=== PATIENT | male | born 1955 | race Hispanic/Latino ===

== ENCOUNTER 2021-12-09 07:15 | Emergency (ER) | payer MEDICARE ==
[2021-12-09] MEDS ORDERED: DEXTROSE 50% IN WATER (25GM) 50 ML SYRINGE IV ONE (08:08)
--- NOTE | 2021-12-09 08:27 | Emergency Department Report ---
ED Dizziness HPI - General Chief Complaint: Hypoglycemia Stated Complaint: HYPGLYCEMIA Time Seen by Provider: 12/09/21 08:03 Source: EMS Mode of arrival: Stretcher Limitations: Physical Limitation - History of Present Illness Initial Comments: 66yo M w/multiple medical comorbidities, brought in by EMS from SNF for hypoglycemia. Per RNs' report, FSG value obtained from EMS is unclear. At bedside today, pt's FSG in the ER is 53mg/dL. Pt denies any complaints at this time. Pain 0/10. Timing: unsure History of Same: No (pt denies) History of Trauma: No Severity: Unable to Determine Improves With: nothing Worsens With: nothing Associated Symptoms: denies other symptoms, other (pt denies) - Related Data Previous Rx's Medication Instructions Recorded Last Taken Type cephALEXin [Keflex] 500 mg PO Q6HR 7 Days #28 capsule 12/09/21 Unknown Rx Allergies Allergy/AdvReac Type Severity Reaction Status Date / Time No Known Allergies Allergy Verified 12/09/21 12:16 ED Review of Systems ROS: Stated complaint: HYPGLYCEMIA Other details as noted in HPI Comment: All other systems reviewed and negative Constitutional: no symptoms reported Eyes: denies: eye pain, eye discharge, vision change ENT: denies: ear pain, throat pain, dental pain, hearing loss, epistaxis Respiratory: denies: see HPI, cough, orthopnea, shortness of breath, SOB with exertion, SOB at rest, stridor Cardiovascular: denies: chest pain, palpitations, dyspnea on exertion, edema, syncope, paroxysmal nocturnal dyspnea Endocrine: no symptoms reported. denies: excessive sweating, flushing, increased hunger, increased thirst, increased urine, unexplained weight gain Gastrointestinal: denies: abdominal pain, nausea, vomiting, diarrhea, constipation, hematemesis, melena Genitourinary: denies: urgency, dysuria, frequency, hematuria, discharge, testicular pain, testicular mass Skin: denies: rash, lesions, change in color, change in hair/nails, pruritus Neurological: weakness, other (pt is bedbound secondary to CVA; denies new/evolving cva symptoms). denies: headache, numbness, paresthesias, confusion, abnormal gait, vertigo Psychiatric: denies: anxiety, depression, auditory hallucinations, visual hallucinations, homicidal thoughts, suicidal thoughts Hematological/Lymphatic: denies: easy bleeding, easy bruising, swollen glands ED Past Medical Hx - Past Medical History Hx CVA: Yes (pt is chronically bed-bound) Hx Diabetes: Yes - Family History Family history: no significant - Social History Smoking Status: Former Smoker Substance Use Type: None Other Social History: pt is from SNF - Medications Home Medications: Home Medications Medication Instructions Recorded Confirmed Last Taken Type cephALEXin [Keflex] 500 mg PO Q6HR 7 Days #28 capsule 12/09/21 Unknown Rx ED Physical Exam - General Limitations: Physical Limitation General appearance: alert, in no apparent distress - Head Head exam: Present: atraumatic, normocephalic - Eye Eye exam: Present: normal appearance, PERRL, EOMI Pupils: Present: normal accommodation - ENT ENT exam: Present: normal exam, normal orophraynx, mucous membranes moist - Neck Neck exam: Present: normal inspection, full ROM. Absent: tenderness, lymphadenopathy, thyromegaly - Respiratory Respiratory exam: Present: normal lung sounds bilaterally. Absent: respiratory distress, wheezes, rales, rhonchi, stridor, chest wall tenderness, accessory muscle use, decreased breath sounds - Cardiovascular Cardiovascular Exam: Present: regular rate, normal rhythm, normal heart sounds. Absent: bradycardia, tachycardia, irregular rhythm, systolic murmur, diastolic murmur, rubs, gallop, clicks, JVD, S3, S4, other - GI/Abdominal GI/Abdominal exam: Present: soft, diminished bowel sounds, other (+G tube in place;no drainage, no erythema, no ttp; insertion site is well appearing). Absent: distended, tenderness, guarding, rebound, rigid, normal bowel sounds, hyperactive bowel sounds, hypoactive bowel sounds, organomegaly, mass, bruit, pulsatile mass, hernia - External exam: Absent: erythema, swelling, lesions, lacerations, ecchymosis - Extremities Exam Extremities exam: Absent: tenderness, normal capillary refill, pedal edema, joint swelling, calf tenderness - Back Exam Back exam: Present: normal inspection, full ROM. Absent: tenderness, CVA tenderness (R), CVA tenderness (L), muscle spasm, paraspinal tenderness, vertebr al tenderness - Neurological Exam Neurological exam: Present: alert, other (pt is bedbound secondary to prior cva) - Psychiatric Psychiatric exam: Present: normal affect, normal mood. Absent: depressed, agitated, anxious, flat affect, manic, homicidal ideation - Skin Skin exam: Present: warm, dry, intact, normal color. Absent: rash, cyanosis, diaphoretic, erythema, urticaria, vesicles, petechiae, pallor, abrasion, ecchymosis, other ED Course Vital Signs 12/09/21 12/09/21 12/09/21 07:29 08:12 08:15 Temperature 98.5 F Pulse Rate 95 H 68 72 Respiratory 18 11 L 14 Rate Blood Pressure 107/52 Blood Pressure 148/92 [Left] O2 Sat by Pulse 96 Oximetry 12/09/21 12/09/21 12/09/21 08:31 08:45 09:01 Temperature Pulse Rate 67 63 62 Respiratory 14 17 18 Rate Blood Pressure 107/52 107/52 90/55 Blood Pressure [Left] O2 Sat by Pulse Oximetry 12/09/21 12/09/21 12/09/21 09:15 09:31 09:45 Temperature Pulse Rate 62 61 61 Respiratory 18 18 16 Rate Blood Pressure 90/55 90/55 90/55 Blood Pressure [Left] O2 Sat by Pulse Oximetry 12/09/21 12/09/21 12/09/21 10:01 10:15 10:31 Temperature Pulse Rate 64 62 62 Respiratory 16 17 15 Rate Blood Pressure 100/58 100/58 100/58 Blood Pressure [Left] O2 Sat by Pulse Oximetry 12/09/21 12/09/21 12/09/21 10:45 11:01 11:16 Temperature Pulse Rate 64 65 68 Respiratory 17 17 12 Rate Blood Pressure 100/58 100/58 Blood Pressure [Left] O2 Sat by Pulse Oximetry 12/09/21 12/09/21 12/09/21 11:31 11:45 12:01 Temperature Pulse Rate 69 71 75 Respiratory 10 L 16 17 Rate Blood Pressure 100/58 100/58 100/58 Blood Pressure [Left] O2 Sat by Pulse 99 98 98 Oximetry 12/09/21 12/09/21 12/09/21 12:15 12:31 12:45 Temperature Pulse Rate 86 74 74 Respiratory 16 16 10 L Rate Blood Pressure 113/66 113/66 113/66 Blood Pressure [Left] O2 Sat by Pulse 99 98 99 Oximetry 12/09/21 12/09/21 13:01 13:15 Temperature Pulse Rate 73 72 Respiratory 18 20 Rate Blood Pressure 113/66 113/66 Blood Pressure [Left] O2 Sat by Pulse 97 98 Oximetry - Reevaluation(s) Reevaluation #1: 12/09/21 12:41 pt calm, cooperative; denies any complaints; nad ED Medical Decision Making - Lab Data Result diagrams: 12/09/21 08:19 12/09/21 08:19 - Radiology Data Radiology results: report reviewed - Medical Decision Making 66-year-old male, sent from [facility], documented history per paperwork that was faxed to the emergency department from this facility, type 2 diabetes, bacteremia, ischemic cardiomyopathy, systolic congestive heart failure, muscle weakness, dysphagia, hyperlipidemia, depression, hypertension, chronic kidney disease stage III, gastrostomy tube, sent in for evaluation of hypoglycemia. Per paperwork that was subsequently faxed to the emergency department from the patient's facility, patient was found to have a glucose of 28 mg/dL this morning. Time was not documented. The patient was subsequently given orange juice. Patient was also documented as having been given glucagon. Patient was "clammy but responsive" per [facility] documentation Serum labs reviewed. Electrolyte abnormalities adjusted and supplementation provided. Finger sticks for glucose checks done serially here in the remained s table. Patient was given Ensure shake x2 via his G-tube. Urinalysis positive for UTI. Patient given Rocephin 1 g IV. Patient stable for discharge back to [facility] facility. Critical care attestation.: If time is entered above; I have spent that time in minutes in the direct care of this critically ill patient, excluding procedure time. ED Disposition Clinical Impression: Hypoglycemia, UTI (urinary tract infection), Hypokalemia Disposition: 03 [facility] Is pt being admited?: No Does the pt Need Aspirin: No Condition: Stable Instructions: Hypokalemia, Urinary Tract Infection, Adult Additional Instructions: It is strongly advised that you follow-up with your primary care doctor in 1-2 business days for reassessment. You have a urinary tract infection. Please take the prescribed antibiotics for this until your antibiotics have been fully completed. Your potassium level today is slightly low at 3.1 and normal is 3.5- 5.0. Eat foods rich in potassium and please have this level rechecked by your primary care doctor during your follow-up visit. Your CAT scan also shows that you have multiple nodules in your right lung. The reading radiologist recommends you have a CAT scan done again in 3 to 6 months to reassess these areas. Please discuss this with your doctor and have your primary care doctor order your repeat CAT scans as recommended Return to the nearest emergency department soon as possible if you develop dizziness, vomiting, weakness, persistently low sugars that are not improving with sugar and/or food, or if any other new worrisome symptoms develop. Prescriptions: cephALEXin [Keflex] 500 mg PO Q6HR 7 Days #28 capsule Referrals: PRIMARY CARE, [Primary Care Provider] - 3-5 Days
--- NOTE | 2021-12-09 08:41 | XRay Report ---
CHEST 1 VIEW 12/09/2021 8:21 AM INDICATION / CLINICAL INFORMATION: weakness. COMPARISON: None available. FINDINGS: SUPPORT DEVICES: None. HEART / MEDIASTINUM: No significant abnormality. LUNGS / PLEURA: There is irregular opacification and atelectasis with mediastinal shift to the left. The appearance could potentially indicate an underlying central left pulmonary mass. No pneumothorax. ADDITIONAL FINDINGS: No significant additional findings. IMPRESSION: 1. Lingular opacification and volume loss. CT of the chest recommended to exclude underlying obstruct ing pulmonary mass. Signer Name: Solomon Zamudio MD Signed: 12/09/2021 8:36 AM Workstation Name: [id number]
[2021-12-09 09:24] LABS: Hematocrit 46.4 % (35.5-45.6); Hemoglobin 14.9 gm/dl (11.8-15.2); Mean Corpuscular HGB Conc 32 % (32-34); Mean Corpuscular Volume 80 fl (84-94); Platelet Count 100 K/mm3 (140-440); Red Blood Count 5.82 M/mm3 (3.65-5.03); Red Cell Distribution Width 18.4 % (13.2-15.2)
[2021-12-09 09:45] LABS: Albumin 3.5 g/dL (3.9-5); Calcium 8.9 mg/dL (8.4-10.2)
[2021-12-09] MEDS ORDERED: POTASSIUM CHLORIDE 20 MEQ PACKET FEEDTUBE NR (09:50)
[2021-12-09 10:25] LABS: Band Neutrophils # (Manual) 0.8 K/mm3; Basophils % (Manual) 0 % (0.0-1.8); Myelocytes # (Manual) 0.2 K/mm3; Total Cells Counted 100
[2021-12-09 10:27] LABS: Platelet Estimate Consistent w Auto; RBC Morphology Normal
--- NOTE | 2021-12-09 11:40 | Cat Scan Report ---
CT CHEST WITHOUT CONTRAST INDICATION / CLINICAL INFORMATION: lingular opacification per reading rads who recs c. Abnormal chest x-ray TECHNIQUE: Axial CT images were obtained through the chest without contrast. [facility] are performed using CT dose reduction for ALARA by means of automated exposure control. COMPARISON: Chest x-ray 12/09/2021 FINDINGS: HEART: No significant abnormality. CORONARY ARTERY CALCIFICATION: Present -- Mild. THORACIC AORTA: No significant abnormality. MEDIASTINUM / ANN: No significant abnormality. PLEURA: Small left pleural effusion/pleural thickening No pneumothorax. LUNGS: Multiple small solid pulmonary nodules within the right lung, largest of which measures 8 mm r ight upper lobe image 37. Linear scarring within the lingula with volume loss left lung. Several smal l pulmonary nodules left lower lobe, largest of which measures 5 mm image 81. ADDITIONAL FINDINGS: Moderate symmetric bilateral gynecomastia UPPER ABDOMEN: No significant abnormality. PEG tube in stomach. SKELETAL SYSTEM: Old healed left rib fracture deformities. IMPRESSION: 1. Multiple incidental pulmonary nodule(s) in the right upper lobe measuring 8 mm with solid characte ristics. Recommendation according to Fleischner Society 2017 Guidelines: Low Risk Patient: CT at 3-6 months, then consider CT at 18-24 months; High Risk Patient: CT at 3-6 months, then CT at 18-24 month . Signer Name: Kian Scott MD Signed: 12/09/2021 11:36 AM Workstation Name: [id number]
[2021-12-09 13:18] LABS: Bacteria,Urine 4+ /HPF (Negative); Bilirubin,Urine NEG (Negative); Blood,Urine LG (Negative); Color,Urine Amber (Yellow); Mucus,Urine FEW /HPF; Urobilinogen,Urine < 2.0 mg/dL (<2.0)
[2021-12-09 13:21] LABS: RBC,Urine > 182.0 /HPF (0.0-6.0)
[2021-12-09 13:22] LABS: WBC,Urine > 182.0 /HPF (0.0-6.0)
[2021-12-09] MEDS ORDERED: cefTRIAXone/NS 1 GM/50 ML 1 GM/50 ML BAG IV ONE (14:50)
[2021-12-09 15:51] VITALS: BP 99/60
== END 2021-12-09 16:40 ==
LOC: ED 07:15
DX: E11.649 Type 2 diabetes mellitus with hypoglycemia without coma (principal); N39.0 Urinary tract infection, site not specified; E87.6 Hypokalemia; Z87.891 Personal history of nicotine dependence
CPT/HCPCS: 36415; 71045; 71250; 80053; 81001; 82962; 85007; 85025; 96365; 96375; 99285; J0696; J3490

== ENCOUNTER 2021-12-13 20:43 | Inpatient (IN) | payer MEDICARE ==
--- NOTE | 2021-12-13 21:57 | Emergency Department Report ---
HPI - General Chief Complaint: Altered Mental Status Time Seen by Provider: 12/13/21 21:45 - HPI HPI: Room 21 The patient is a 66-year-old male presenting with chief complaint of altered mental status. Patient is was sent from [facility] after he was noted to be unresponsive approximately 2 hours ago. Per nursing the patient is normally talkative. EMS was called and found the patient to be hypoxic to 88% on room air and patient was placed on a nonrebreather. The patient is currently unresponsive with eyes open ED Past Medical Hx - Past Medical History Previous Medical History?: Yes Hx CVA: Yes (pt is chronically bed-bound) Hx Diabetes: Yes - Surgical History Past Surgical History?: Yes Additional Surgical History: gastro tube - Family History Family history: no significant - Social History Smoking Status: Unknown if ever smoked Substance Use Type: Other - Medications Home Medications: Home Medications Medication Instructions Recorded Confirmed Last Taken Type cephALEXin [Keflex] 500 mg PO Q6HR 7 Days #28 capsule 12/09/21 Unknown Rx ED Review of Systems ROS: Stated complaint: AMS Other details as noted in HPI Comment: Unobtainable due to pts medical conditions Physical Exam - Physical Exam Vital Signs: Vital Signs 12/13/21 20:53 Temperature 98.4 F Pulse Rate 105 H Respiratory 18 Rate Blood Pressure 105/50 O2 Sat by Pulse 100 Oximetry Physical Exam: GENERAL: The patient is well-developed well-nourished male lying on stretcher unresponsive with eyes open. [] HEENT: Normocephalic. Atraumatic. Right sclera injected. Patient has moist mucous membranes. NECK: Supple. Trachea midline CHEST/LUNGS: Clear to auscultation. There is no respiratory distress noted. HEART/CARDIOVASCULAR: Regular. There is tachycardia. There is no gallop rub or murmur. ABDOMEN: Abdomen is soft, nontender. Patient has normal bowel sounds. There is no abdominal distention. SKIN: There is no rash. There is no edema. There is no diaphoresis. NEURO: The patient is obtunded. Patient does not respond to verbal or tactile stimuli MUSCULOSKELETAL: There is no evidence of acute injury. ED Course Vital Signs 12/13/21 20:53 Temperature 98.4 F Pulse Rate 105 H Respiratory 18 Rate Blood Pressure 105/50 O2 Sat by Pulse 100 Oximetry - Consultations Consultation #1: 12/13/21 23:00 Case discussed with tele-neurologist Dr. Ha-given last known well time of 09: 00 patient is not a tPA candidate. As patient is bedbound he is not a candidate for thrombectomy. CTA shows occlusion of right carotid artery however intracranially there is no occlusion seen ED Medical Decision Making - Lab Data Result diagrams: 12/13/21 22:49 12/13/21 22:49 Laboratory Tests 12/13/21 12/13/21 12/13/21 22:49 22:49 22:49 WBC 12.9 H RBC 6.39 H Hgb 16.8 H Hct 51.0 H MCV 80 L MCH 26 L MCHC 33 RDW 19.2 H Plt Count 101 L Lymph % (Auto) 6.6 L [place] % (Auto) 11.0 H Eos % (Auto) 0.1 Baso % (Auto) 0.3 Lymph # (Auto) 0.9 L [place] # (Auto) 1.4 H Eos # (Auto) 0.0 Baso # (Auto) 0.0 Seg Neutrophils % 82.0 H Seg Neutrophils # 10.6 H PT 13.9 INR 0.97 Thrombin Time 18.7 D-Dimer VBG pH Sodium 140 Potassium 3.9 D Chloride 91.4 L Carbon Dioxide 29 Anion Gap 24 BUN 53 H Creatinine 1.9 H Estimated GFR 36 BUN/Creatinine Ratio 28 Glucose 191 H Lactic Acid Calcium 10.3 H D Magnesium Total Bilirubin 0.50 AST 21 ALT 13 Alkaline Phosphatase 205 H Ammonia Total Creatine Kinase 17 L CK-MB (CK-2) 1.3 CK-MB (CK-2) Rel Index 7.6 H Troponin T 0.062 H Total Protein 8.3 H Albumin 3.4 L Albumin/Globulin Ratio 0.7 TSH Free T4 Plasma/Serum Alcohol 12/13/21 12/13/21 12/13/21 22:49 22:49 22:49 WBC RBC Hgb Hct MCV MCH MCHC RDW Plt Count Lymph % (Auto) [place] % (Auto) Eos % (Auto) Baso % (Auto) Lymph # (Auto) [place] # (Auto) Eos # (Auto) Baso # (Auto) Seg Neutrophils % Seg Neutrophils # PT INR Thrombin Time D-Dimer VBG pH Sodium Potassium Chloride Carbon Dioxide Anion Gap BUN Creatinine Estimated GFR BUN/Creatinine Ratio Glucose Lactic Acid 2.20 H* Calcium Magnesium 2.30 Total Bilirubin AST ALT Alkaline Phosphatase Ammonia 10.0 L Total Creatine Kinase CK-MB (CK-2) CK-MB (CK-2) Rel Index Troponin T Total Protein Albumin Albumin/Globulin Ratio TSH Free T4 Plasma/Serum Alcohol 12/13/21 12/13/21 12/13/21 22:49 22:49 22:49 WBC RBC Hgb Hct MCV MCH MCHC RDW Plt Count Lymph % (Auto) [place] % (Auto) Eos % (Auto) Baso % (Auto) Lymph # (Auto) [place] # (Auto) Eos # (Auto) Baso # (Auto) Seg Neutrophils % Seg Neutrophils # PT INR Thrombin Time D-Dimer VBG pH 7.393 Sodium Potassium Chloride Carbon Dioxide Anion Gap BUN Creatinine Estimated GFR BUN/Creatinine Ratio Glucose Lactic Acid Calcium Magnesium Total Bilirubin AST ALT Alkaline Phosphatase Ammonia Total Creatine Kinase CK-MB (CK-2) CK-MB (CK-2) Rel Index Troponin T Total Protein Albumin Albumin/Globulin Ratio TSH 0.616 Free T4 1.45 Plasma/Serum Alcohol < 0.01 12/13/21 22:49 WBC RBC Hgb Hct MCV MCH MCHC RDW Plt Count Lymph % (Auto) [place] % (Auto) Eos % (Auto) Baso % (Auto) Lymph # (Auto) [place] # (Auto) Eos # (Auto) Baso # (Auto) Seg Neutrophils % Seg Neutrophils # PT INR Thrombin Time D-Dimer 965.9 H VBG pH Sodium Potassium Chloride Carbon Dioxide Anion Gap BUN Creatinine Estimated GFR BUN/Creatinine Ratio Glucose Lactic Acid Calcium Magnesium Total Bilirubin AST ALT Alkaline Phosphatase Ammonia Total Creatine Kinase CK-MB (CK-2) CK-MB (CK-2) Rel Index Troponin T Total Protein Albumin Albumin/Globulin Ratio TSH Free T4 Plasma/Serum Alcohol - EKG Data -: EKG Interpreted by Me EKG shows normal: sinus rhythm Rate: tachycardia (100 bpm) - EKG Data When compared to previous EKG there are: previous EKG unavailable Interpretation: nonspecific ST-T wave florecita, other (Right bundle branch block) - Radiology Data Radiology results: report reviewed (CT head, CTA brain and neck, chest x-ray), image reviewed (CT head, CTA brain and neck, chest x-ray) interpreted by me: Chest x-ray-left lower lobe haziness, no pneumothorax [facility] [address] [place] [address] Cat Scan Report Signed Patient: YENNI MASON MR#: [id number] [birth year] : 1955 Acct:[id number] Age/Sex: 66 / M ADM Date: 12/13/21 Loc: ED Attending Dr: Ordering Physician: KEN FOURNIER MD Date of Service: 12/13/21 Procedure(s): CT head/brain wo con Accession Number(s): [id number] cc: KEN FOURNIER MD CT HEAD WITHOUT CONTRAST INDICATION / CLINICAL INFORMATION: Altered mental status. TECHNIQUE: All CT scans at this location are performed using CT dose reduction for ALARA by means of automated exposure control. COMPARISON: None available. FINDINGS: HEMORRHAGE: None. EXTRA-AXIAL SPACES: Moderately prominent likely related to cortical atrophy. VENTRICULAR SYSTEM: Mildly enlarged likely related to central atrophy. CEREBRAL PARENCHYMA: There are periventricular hypodensities consistent with microvascular ischemic change. No acute territorial infarct. MIDLINE SHIFT / HERNIATION: None. CEREBELLUM / BRAINSTEM: No significant abnormality. ORBITS: Normal as visualized SOFT TISSUES: No significant abnormality. SKULL: No significant abnormality. PARANASAL SINUSES / MASTOID AIR CELLS: Normal as visualized ADDITIONAL FINDINGS: None. IMPRESSION: 1. No acute intracranial abnormality in the setting of senescent changes. Signer Name: Jerry Muñiz DO Signed: 12/13/2021 10:13 PM Workstation Name: [id number] Transcribed By: MANJINDER Dictated By: JERRY MUÑIZ DO Electronically Authenticated By: JERRY MUÑIZ DO Signed Date/Time: 12/13/212212 DD/ 09 TD/TT: Print Cancel [facility] [address] [place] [address] Cat Scan Report Signed Patient: YENNI MASON MR#: [id number] [birth year] : 1955 Acct:[id number] Age/Sex: 66 / M ADM Date: 12/13/21 Loc: ED Attending Dr: Ordering Physician: KEN FOURNIER MD Date of Service: 12/13/21 Procedure(s): CT angio head Accession Number(s): [id number] cc: KEN FOURNIER MD CT angio neck, CT angio head HISTORY: Unresponsive COMPARISON: CT head same day TECHNIQUE: CTA of the neck and head is performed after IV contrast. 3-D/MIP reformats were p ostprocessed. Percentage stenosis is determined by direct quantitative measurements of diseased internal carotid artery diameter compared with normal distal internal carotid artery reference segments or by criteria similar to NASCET where applicable. All CT scans at this location are performed using CT dose reduction for ALARA by means of automated exposure control. FINDINGS: CTA NECK: Aortic arch: No significant abnormality. Cervical vertebral arteries: No occlusion or hemodynamically significant stenosis. Common Carotid arteries: Right common carotid artery is occluded from its origin. Left CCA is patent. There is reconstitution of the right external carotid artery. Internal carotid arteries: The right ICA is occluded. There is retrograde flow in the distal right ICA to the level the ophthalmic artery. Mild atherosclerosis involving the left ICA without occlusion or significant stenosis. CTA HEAD: Intracranial internal carotid arteries: No occlusion or significant stenosis. Anterior cerebral arteries: No occlusion or significant stenosis. Middle cerebral arteries: No occlusion or significant stenosis. Intracranial vertebral arteries: No occlusion or significant stenosis. Basilar artery: No occlusion or significant stenosis. Posterior cerebral arteries: No occlusion or significant stenosis. No aneurysm. Additional findings: Debris is seen within the paratracheal likely related to aspiration. IMPRESSION: 1. There is occlusion of the right common carotid artery from its origin which extends to involve the entire right internal carotid artery with minimal retrograde flow in the distal right ICA. 2. Small age-indeterminate right rice radiata white matter lacunar infarctions. No other occlusion or significant stenosis. Signer Name: Jean Paul Maria MD Signed: 12/13/2021 10:58 PM Workstation Name: [id number] Transcribed By: Dictated By: Jean Paul Maria MD Electronically Authenticated By: Jean Paul Maria MD Signed Date/Time: 12/13/212257 DD/ 52 TD/TT: - Medical Decision Making Patient hypoxic with elevated D-dimer. Unable to perform CTA of the chest at this time given recent CTA brain and neck. We are unable to obtain a V/Q scan at this hour so given the presumptive diagnosis of CVA with possibility of PE the patient will be started on a heparin drip pending further evaluation. - Differential Diagnosis CVA, sepsis, pneumonia, PE Critical care attestation.: If time is entered above; I have spent that time in minutes in the direct care of this critically ill patient, excluding procedure time. ED Disposition Clinical Impression: Altered mental status, Renal insufficiency, Pleural effusion Disposition: ADMITTED INPATIENT Is pt being admited?: Yes Does the pt Need Aspirin: Yes Condition: Serious Time of Disposition: 00:17 (Care transferred to hospitalist (Dr. Hurley))
--- NOTE | 2021-12-13 22:18 | Cat Scan Report ---
CT HEAD WITHOUT CONTRAST INDICATION / CLINICAL INFORMATION: Altered mental status. TECHNIQUE: All CT scans at this location are performed using CT dose reduction for ALARA by means of automated exposure control. COMPARISON: None available. FINDINGS: HEMORRHAGE: None. EXTRA-AXIAL SPACES: Moderately prominent likely related to cortical atrophy. VENTRICULAR SYSTEM: Mildly enlarged likely related to central atrophy. CEREBRAL PARENCHYMA: There are periventricular hypodensities consistent with microvascular ischemic c hange. No acute territorial infarct. MIDLINE SHIFT / HERNIATION: None. CEREBELLUM / BRAINSTEM: No significant abnormality. ORBITS: Normal as visualized SOFT TISSUES: No significant abnormality. SKULL: No significant abnormality. PARANASAL SINUSES / MASTOID AIR CELLS: Normal as visualized ADDITIONAL FINDINGS: None. IMPRESSION: 1. No acute intracranial abnormality in the setting of senescent changes. Signer Name: Jerry Stoll DO Signed: 12/13/2021 10:13 PM Workstation Name: [id number]
--- NOTE | 2021-12-13 22:43 | Consultation ---
History of Present Illness History of present illness: [facility] Consult Note # Demographics Consult Type: Acute Stroke Level 1 (0-4.5 hrs) Patient Location: Emergency Room First Name: Bharat Last Name: Rajeev Date of : 1955 Age: 66 Gender: Male Facility: [facility] Time of Initial Page (): 12/13/2021, 21:52 Time of Return Call ( Time): 12/13/2021, 21:52 # HPI Chief Complaint: speech changes History: 66M presents from intermediate with decreased speech output. Normally talkative, noted at 1945 to be aphasic. Bedbound at baseline. LKWT 0900 this morning. # Scores Time of exam and NIHSS (): 12/13/2021, 22:02 Level of Consciousness 1a: [0] = Alert; keenly responsive LOC Questions 1b: [2] = Answers neither correctly LOC Commands 1c: [2] = Performs neither correctly Best Gaze 2: [0] = Normal Visual 3: [0] = No visual loss Facial Palsy 4: [0] = Normal symmetrical movements Motor Arm Left 5a: [2] = Some effort against gravity Motor Arm Right 5b: [2] = Some effort against gravity Motor Leg Left 6a: [4] = No movement Motor Leg Right 6b: [4] = No movement Limb Ataxia 7: [0] = Absent Sensory 8: [0] = Normal Best Language 9: [3] = Mute Dysarthria 10: [2] = Severe dysarthria Extinction and Inattention 11: [0] = No abnormality NIHSS Total: 21 # Data Time Head CT personally read by me (): 12/13/2021, 22:[address]: no bleed preliminarily reviewed by me, please refer to radiology read for official reading hyperdense left MCA CTA Head: no large vessel occlusion preliminarily reviewed by me, please refer to radiology read for official reading CTA Neck: preliminarily reviewed by me, please refer to radiology read for official reading occluded right common carotid artery # Plan Thrombolytic/Intervention: NOT IV Thrombolysis or IA Intervention candidate Thrombolytic Exclusion: > 4.5 hours Intraarterial Exclusion: no large vessel occlusion (LVO) poor functional baseline Target Blood Pressure: SBP < 220 DBP < 105 Labs: hemoglobin A1c lipid panel Therapy/Evaluation: NPO until swallow evaluation Medication: ASA 300 IN Other: consult on-site neurology service for full work-up and evaluation recommendations telemetry monitoring I have discussed my recommendations with the referring provider Disposition: admit # Logistics Telemedicine: Interactive 2 way audio and visual telecommunication technology was utilized during this visit Electronically signed at 12/13/2021 22:42 (Eastern Time) by Leland Amaya MD Medications and Allergies Allergies Allergy/AdvReac Type Severity Reaction Status Date / Time No Known Allergies Allergy Verified 12/09/21 12:16 Home Medications Medication Instructions Recorded Confirmed Last Taken Type cephALEXin [Keflex] 500 mg PO Q6HR 7 Days #28 capsule 12/09/21 Unknown Rx Physical Examination - Vital Signs Vital Signs: Vital Signs Temp Pulse Resp BP Pulse Ox 98.4 F 105 H 18 105/50 100 12/13/21 20:53 12/13/21 20:53 12/13/21 20:53 12/13/21 20:53 12/13/21 20:53
--- NOTE | 2021-12-13 22:54 | XRay Report ---
CHEST 1 VIEW INDICATION / CLINICAL INFORMATION: hypoxia, altered mental status. COMPARISON: 12/09/2021 FINDINGS: SUPPORT DEVICES: None. HEART / MEDIASTINUM: Cardiomegaly. LUNGS / PLEURA: Small left pleural effusion with linear scarring/atelectasis within the left midlung field. No pneumothorax. ADDITIONAL FINDINGS: No significant additional findings. IMPRESSION: 1. Cardiomegaly with small left pleural effusion Signer Name: Kian Scott MD Signed: 12/13/2021 10:49 PM Workstation Name: [id number]
--- NOTE | 2021-12-13 23:03 | Cat Scan Report ---
CT angio neck, CT angio head HISTORY: Unresponsive COMPARISON: CT head same day TECHNIQUE: CTA of the neck and head is performed after IV contrast. 3-D/MIP reformats were postproces sed. Percentage stenosis is determined by direct quantitative measurements of diseased internal [place] artery diameter compared with normal distal internal carotid artery reference segments or by crit eria similar to NASCET where applicable. All CT scans at this location are performed using CT dose re duction for ALARA by means of automated exposure control. FINDINGS: CTA NECK: Aortic arch: No significant abnormality. Cervical vertebral arteries: No occlusion or hemodynamically significant stenosis. Common Carotid arteries: Right common carotid artery is occluded from its origin. Left CCA is patent . There is reconstitution of the right external carotid artery. Internal carotid arteries: The right ICA is occluded. There is retrograde flow in the distal right IC A to the level the ophthalmic artery. Mild atherosclerosis involving the left ICA without occlusion or significant stenosis. CTA HEAD: Intracranial internal carotid arteries: No occlusion or significant stenosis. Anterior cerebral arteries: No occlusion or significant stenosis. Middle cerebral arteries: No occlusion or significant stenosis. Intracranial vertebral arteries: No occlusion or significant stenosis. Basilar artery: No occlusion or significant stenosis. Posterior cerebral arteries: No occlusion or significant stenosis. No aneurysm. Additional findings: Debris is seen within the paratracheal likely related to aspiration. IMPRESSION: 1. There is occlusion of the right common carotid artery from its origin which extends to involve the entire right internal carotid artery with minimal retrograde flow in the distal right ICA. 2. Small age-indeterminate right rice radiata white matter lacunar infarctions. No other occlusion or significant stenosis. Signer Name: Jean Paul Maria MD Signed: 12/13/2021 10:58 PM Workstation Name: [id number]
[2021-12-13 23:10] LABS: Basophils % (Auto) 0.3 % (0.0-1.8); Eosinophils % (Auto) 0.1 % (0.0-4.3); Hemoglobin 16.8 gm/dl (11.8-15.2); Lymphocytes # (Auto) 0.9 K/mm3 (1.2-5.4); Lymphocytes % (Auto) 6.6 % (13.4-35.0); Mean Corpuscular HGB Conc 33 % (32-34); Mean Corpuscular Volume 80 fl (84-94); Monocytes # (Auto) 1.4 K/mm3 (0.0-0.8); Platelet Count 101 K/mm3 (140-440); Red Blood Count 6.39 M/mm3 (3.65-5.03); Red Cell Distribution Width 19.2 % (13.2-15.2)
[2021-12-13] MEDS ORDERED: ASPIRIN 300 MG RECT SUPP PR ONE (23:13)
[2021-12-13 23:22] LABS: INR 0.97 (0.87-1.13); Thrombin Time 18.7 Sec. (15.1-19.6)
[2021-12-13 23:31] LABS: Creatine Kinase MB 1.3 ng/mL (0.0-4.0)
[2021-12-13 23:34] LABS: Albumin 3.4 g/dL (3.9-5); Calcium 10.3 mg/dL (8.4-10.2)
[2021-12-13 23:36] LABS: Free T4 (Free Thyroxine) 1.45 ng/dL (0.76-1.46)
[2021-12-14] MEDS ORDERED: HEPARIN 10,000 UNITS/10 ML VIAL IV ONE (00:09)
[2021-12-14] MEDS ORDERED: HEPARIN 10,000 UNITS/10 ML VIAL IV PRN (00:09)
[2021-12-14] MEDS ORDERED: levETIRAcetam 1000 MG/NS 0.75% 1,000 MG/100 ML BAG IV ONE (00:29)
[2021-12-14] MEDS ORDERED: MORPHINE 4 MG/1 ML INJ IV PRN (00:30)
[2021-12-14] MEDS ORDERED: ALBUTEROL 2.5 MG/3 ML NEBU IH PRN (00:30)
[2021-12-14] MEDS ORDERED: ONDANSETRON 4 MG/2 ML INJ IV PRN (00:30)
[2021-12-14] MEDS ORDERED: DEXTROSE 50% IN WATER (25GM) 50 ML SYRINGE IV PRN (00:30)
[2021-12-14] MEDS: HEPARIN/ 0.45% NACL DRIP 25,000 UNIT/500 ML BAG IV SCH ×2 (00:37→22:50)
--- NOTE | 2021-12-14 00:38 | History and Physical Report ---
History of Present Illness Date of examination: 12/14/21 Date of admission: 12/14/21 Chief complaint: Altered mental status History of present illness: 66-year-old male with past medical history of CVA, diabetes was brought to the emergency room because of altered mental status. Patient is was sent from [facility] after he was noted to be unresponsive approximately 2 hours ago. Per nursing the patient is normally talkative. EMS was called and found the p atient to be hypoxic to 88% on room air and patient was placed on a nonrebreather. The patient is currently unresponsive with eyes open Case discussed with tele-neurologist Dr. Ha-given last known well time of 09: 00 patient is not a tPA candidate. As patient is bedbound he is not a candidate for thrombectomy. CTA shows occlusion of right carotid artery however intracranially there is no occlusion seen Past History Past Medical History: diabetes, stroke Past Surgical History: No surgical history, Other (G-tube) Social history: no significant social history Family history: hypertension Medications and Allergies Allergies Allergy/AdvReac Type Severity Reaction Status Date / Time No Known Allergies Allergy Verified 12/09/21 12:16 Home Medications Medication Instructions Recorded Confirmed Last Taken Type cephALEXin [Keflex] 500 mg PO Q6HR 7 Days #28 capsule 12/09/21 Unknown Rx Active Meds: Active Medications Heparin Sodium (Porcine) (Heparin 10,000 Units/10 Ml Vial) 3,100 unit 40 unit/kg (3100 unit) IV Q6H PRN PRN Reason: Anti-Xa Assay<0.1 units/ml Heparin Sodium/Sodium Chloride (Heparin/ 0.45% Nacl-25,000 Unit/500 Ml) 25,000 unit in 500 mls @ 23 mls/hr IV TITR ALEXSANDRA; Protocol Levetiracetam (Keppra 1,000 Mg/Ns 0.75% 100ml) 1,000 mg in 100 mls @ 400 mls/hr IV ONCE ONE Stop: 12/14/21 00:43 Review of Systems All systems: negative Constitutional: weakness, malaise, lethargy, other (Altered mental status) Exam - Constitutional Vitals: Temp Pulse Resp BP Pulse Ox 98.4 F 105 H 18 105/50 100 12/13/21 20:53 12/13/21 20:53 12/13/21 20:53 12/13/21 20:53 12/13/21 20:53 General appearance: Present: no acute distress, well-nourished - EENT Eyes: Present: PERRL ENT: hearing intact, clear oral mucosa - Neck Neck: Present: supple, normal ROM - Respiratory Respiratory effort: normal Respiratory: bilateral: CTA - Cardiovascular Heart Sounds: Present: S1 & S2. Absent: rub, click - Extremities Extremities: pulses symmetrical, No edema Peripheral Pulses: within normal limits - Abdominal General gastrointestinal: Present: soft, non-tender, non-distended, normal bowel sounds Male genitourinary: Present: normal - Integumentary Integumentary: Present: clear, warm, dry - Musculoskeletal Musculoskeletal: gait normal, strength equal bilaterally - Psychiatric Psychiatric: other (Patient is altered mental status) - Neurologic Neurologic: CNII-XII intact, moves all extremities, other (Patient is altered mental status) HEART Score - HEART Score Troponin: Troponin T 0.062 ng/mL (0.00-0.029) H 12/13/21 22:49 Results - Labs CBC & Chem 7: 12/13/21 22:49 12/13/21 22:49 Labs: Laboratory Last Values WBC 12.9 K/mm3 (4.5-11.0) H 12/13/21 22:49 RBC 6.39 M/mm3 (3.65-5.03) H 12/13/21 22:49 Hgb 16.8 gm/dl (11.8-15.2) H 12/13/21 22:49 Hct 51.0 % (35.5-45.6) H 12/13/21 22:49 MCV 80 fl (84-94) L 12/13/21 22:49 MCH 26 pg (28-32) L 12/13/21 22:49 MCHC 33 % (32-34) 12/13/21 22:49 RDW 19.2 % (13.2-15.2) H 12/13/21 22:49 Plt Count 101 K/mm3 (140-440) L 12/13/21 22:49 Lymph % (Auto) 6.6 % (13.4-35.0) L 12/13/21 22:49 [place] % (Auto) 11.0 % (0.0-7.3) H 12/13/21 22:49 Eos % (Auto) 0.1 % (0.0-4.3) 12/13/21 22:49 Baso % (Auto) 0.3 % (0.0-1.8) 12/13/21 22:49 Lymph # (Auto) 0.9 K/mm3 (1.2-5.4) L 12/13/21 22:49 [place] # (Auto) 1.4 K/mm3 (0.0-0.8) H 12/13/21 22:49 Eos # (Auto) 0.0 K/mm3 (0.0-0.4) 12/13/21 22:49 Baso # (Auto) 0.0 K/mm3 (0.0-0.1) 12/13/21 22:49 Seg Neutrophils % 82.0 % (40.0-70.0) H 12/13/21 22:49 Seg Neutrophils # 10.6 K/mm3 (1.8-7.7) H 12/13/21 22:49 PT 13.9 Sec. (12.2-14.9) 12/13/21 22:49 INR 0.97 (0.87-1.13) 12/13/21 22:49 Thrombin Time 18.7 Sec. (15.1-19.6) 12/13/21 22:49 D-Dimer 965.9 ng/mlDDU (0-234) H 12/13/21 22:49 VBG pH 7.393 (7.320-7.420) 12/13/21 22:49 Sodium 140 mmol/L (137-145) 12/13/21 22:49 Potassium 3.9 mmol/L (3.6-5.0) D 12/13/21 22:49 Chloride 91.4 mmol/L (98-107) L 12/13/21 22:49 Carbon Dioxide 29 mmol/L (22-30) 12/13/21 22:49 Anion Gap 24 mmol/L 12/13/21 22:49 BUN 53 mg/dL (9-20) H 12/13/21 22:49 Creatinine 1.9 mg/dL (0.8-1.3) H 12/13/21 22:49 Estimated GFR 36 ml/min 12/13/21 22:49 BUN/Creatinine Ratio 28 % 12/13/21 22:49 Glucose 191 mg/dL (75-100) H 12/13/21 22:49 Lactic Acid 2.20 mmol/L (0.7-2.0) H* 12/13/21 22:49 Calcium 10.3 mg/dL (8.4-10.2) H D 12/13/21 22:49 Magnesium 2.30 mg/dL (1.7-2.3) 12/13/21 22:49 Total Bilirubin 0.50 mg/dL (0.1-1.2) 12/13/21 22:49 AST 21 units/L (5-40) 12/13/21 22:49 ALT 13 units/L (7-56) 12/13/21 22:49 Alkaline Phosphatase 205 units/L (35-129) H 12/13/21 22:49 Ammonia 10.0 umol/L (25-60) L 12/13/21 22:49 Total Creatine Kinase 17 units/L (55-170) L 12/13/21 22:49 CK-MB (CK-2) 1.3 ng/mL (0.0-4.0) 12/13/21 22:49 CK-MB (CK-2) Rel Index 7.6 (0-4) H 12/13/21 22:49 Troponin T 0.062 ng/mL (0.00-0.029) H 12/13/21 22:49 Total Protein 8.3 g/dL (6.3-8.2) H 12/13/21 22:49 Albumin 3.4 g/dL (3.9-5) L 12/13/21 22:49 Albumin/Globulin Ratio 0.7 % 12/13/21 22:49 TSH 0.616 mlU/mL (0.270-4.200) 12/13/21 22:49 Free T4 1.45 ng/dL (0.76-1.46) 12/13/21 22:49 Plasma/Serum Alcohol < 0.01 % (0-0.07) 12/13/21 22:49 - Imaging and Cardiology CT Scan - head: report reviewed Assessment and Plan VTE prophylaxis?: Chemical Plan of care discussed with patient/family: Yes - Patient Problems (1) Acute metabolic encephalopathy Current Visit: Yes Status: Acute Plan to address problem: Admit the patient to the medical telemetry. Acute metabolic encephalopathy secondary to CVA and MAURI. Aspirin 325 mg p.o. daily. Lipitor 40 mg p.o. daily. We do MRI of the brain and MRA of the brain and neck with and without contrast echocardiogram PT OT speech evaluation. Please consult neurology in the morning (2) MAURI (acute kidney injury) Current Visit: Yes Status: Acute Plan to address problem: Avoid nephrotoxic drug. Renally dose medication. Normal saline at the rate of 100 cc/h. BMP in the morning (3) Diabetes Current Visit: Yes Status: Acute Plan to address problem: Accu-Chek every 6 hours with Humalog low-dose coverage. Diabetic education (4) Lactic acidosis Current Visit: Yes Status: Acute Plan to address problem: Rocephin 2 g IV daily. Normal saline 100 mL/h. We will repeat the lactic acid. (5) Pleural effusion Current Visit: Yes Status: Acute Plan to address problem: Oxygen via nasal cannula 3 L/min. DuoNeb via nebulizer every 4 hours. Albuterol via nebulizer every 4 hours as needed. We will monitor the patient closely. If needed will consult pulmonary (6) DVT prophylaxis Current Visit: Yes Status: Acute Plan to address problem: Heparin 5000 units subcu every 12 hours for DVT prophylaxis. Pepcid 20 mg IV every 12 hours for GI prophylaxis. Patient is a full code
[2021-12-14 00:51] LABS: Hematocrit 53.1 % (35.5-45.6); Hemoglobin 16.7 gm/dl (11.8-15.2)
[2021-12-14] MEDS: cefTRIAXone/NS 2 GM/100 ML 2 GM/100 ML BAG IV SCH (01:12)
[2021-12-14 01:16] LABS: INR 0.92 (0.87-1.13)
[2021-12-14 01:17] LABS: Partial Thromboplastin Time 33.3 Sec. (24.2-36.6)
[2021-12-14 01:21] LABS: Chol/HDL Ratio 6.85 %
[2021-12-14] MEDS: SODIUM CHLORIDE 0.9% 1000 ML 1,000 ML IV SCH ×2 (04:21→17:04)
[2021-12-14] MEDS: IPRATROPIUM/ALBUTEROL SULFATE 3 ML AMPUL.NEB IH SCH ×4 (05:54→20:07)
[2021-12-14] MEDS: INSULIN LISPRO 100 UNIT/ML SUB-Q SCH ×3 (06:21→17:02)
--- NOTE | 2021-12-14 09:27 | Event Note ---
Date: 12/14/21 Patient seen and evaluated. Patient initiated on coronavirus protocol, continue medical management.
[2021-12-14] MEDS ORDERED: ASPIRIN 325 MG TAB PO SCH (10:00)
[2021-12-14] MEDS ORDERED: HEPARIN 5,000 UNIT/1 ML VIAL SUB-Q SCH (10:00)
[2021-12-14] MEDS ORDERED: FAMOTIDINE 20 MG/2 ML INJ IV SCH (10:00)
[2021-12-14] MEDS: ASPIRIN EC 81 MG TAB PO SCH (10:50)
[2021-12-14] MEDS: TORSEMIDE 10 MG TAB PO SCH (10:50)
[2021-12-14] MEDS: carvediloL 3.125 MG TAB PO SCH ×2 (10:50→21:49)
[2021-12-14] MEDS: TAMSULOSIN 0.4 MG CAP PO SCH (10:50)
[2021-12-14] MEDS: ASCORBIC ACID 500 MG TAB PO SCH ×2 (10:50→21:51)
[2021-12-14] MEDS: FAMOTIDINE 20 MG/2 ML INJ IV SCH (10:51)
[2021-12-14] MEDS: CHOLECALCIFEROL (VIT D3) 400 UNIT TAB PO SCH (10:51)
[2021-12-14] MEDS: SERTRALINE 100 MG TAB PO SCH (10:52)
[2021-12-14] MEDS: ZINC SULFATE 220 MG CAP PO SCH ×2 (10:52→21:51)
[2021-12-14 11:44] LABS: C-Reactive Protein 3.9 mg/dL (0.00-1.30)
[2021-12-14 13:25] LABS: Albumin 3.5 g/dL (3.9-5)
[2021-12-14 13:38] LABS: Calcium 9.4 mg/dL (8.4-10.2)
--- NOTE | 2021-12-14 14:06 | Electrocardiograph Report ---
[facility] Test Date: 2021-12-13 Test Time: 23:32:31 Pat Name: YENNI MASON Department: Room: A472 1 Gender: M Dependency Case Manager: SHONNA : 1955 Requested By: KEN FOURNIER Order Number: [id number] Reading MD: Dat Hartman Measurements Intervals [place] Rate: 100 P: 0 [place]: 172 QRS: -74 QRSD: 143 T: 79 QT: 407 QTc: 524 Interpretive Statements Sinus tachycardia Right bundle branch block Probable inferior infarct, recent No previous ECG available for comparison Electronically Signed On 12-14-2021 14:05:52 EDT by Dat Hartman
[2021-12-14] MEDS: methylPREDNISolone Sod Succinate 40 MG/1 ML INJ IV SCH ×2 (16:54→21:49)
[2021-12-15] MEDS: INSULIN LISPRO 100 UNIT/ML SUB-Q SCH ×3 (00:33→12:49)
[2021-12-15] MEDS: cefTRIAXone/NS 2 GM/100 ML 2 GM/100 ML BAG IV SCH (00:34)
[2021-12-15] MEDS: IPRATROPIUM/ALBUTEROL SULFATE 3 ML AMPUL.NEB IH SCH ×4 (04:06→21:36)
[2021-12-15] MEDS: methylPREDNISolone Sod Succinate 40 MG/1 ML INJ IV SCH ×3 (06:11→22:49)
[2021-12-15] MEDS: ASCORBIC ACID 500 MG TAB PO SCH ×2 (10:46→22:49)
[2021-12-15] MEDS: carvediloL 3.125 MG TAB PO SCH ×2 (12:35→22:49)
[2021-12-15] MEDS: TAMSULOSIN 0.4 MG CAP PO SCH (13:34)
--- NOTE | 2021-12-15 14:17 | Progress Note ---
Assessment and Plan Assessment and plan: Patient is a 66-year-old male with past medical history of CVA, diabetes was brought to the emergency room because of altered mental status. Patient is was sent from [facility] after he was noted to be unresponsive approximately 2 hours ago. Per nursing the patient is normally talkative. EMS was called and found the patient to be hypoxic to 88% on room air and patient was placed on a nonrebreather. The patient is currently unresponsive with eyes open Case discussed with tele-neurologist Dr. Ha-given last known well time of 09: 00 patient is not a tPA candidate. As patient is bedbound he is not a candidate for thrombectomy. CTA shows occlusion of right carotid artery however intracranially there is no occlusion seen Imaging studies including a CT of the head showed There is occlusion of the right common carotid artery from its origin which extends to involve the entire right internal carotid artery with minimal retrograde flow in the distal right ICA. 2. Small age-indeterminate right rice radiata white matter lacunar infarctions. No other occlusion or significant stenosis. Chest x-ray shows no acute pathology. 12/15/21: At this time we will discontinue heparin drip until patient is seen by vascular surgery. MRI still pending, unsure if patient actually had a CVA would not want this to expand with the current heparin drip ordered. Patient does not show persistent hypoxia or in any acute respiratory distress at this time although on 2 L of oxygen with good sustained saturation. We will obtain a VQ scan at this time. I will also obtain nephrology consultation due to acute on chronic CKD creatinine checked on November showed a creatinine of 2.3 although this is close to our recent time and not sure what his underlying baseline is. Continue seizure precautions. Will await for neurology input for possible EEG to rule out status epilepticus. Aspiration precautions (1) Acute metabolic encephalopathy Current Visit: Yes Status: Acute Plan to address problem: Admit the patient to the medical telemetry. Acute metabolic encephalopathy secondary to CVA and MAURI. Aspirin 325 mg p.o. daily. Lipitor 40 mg p.o. daily. We do MRI of the brain and MRA of the brain and neck with and without contrast echocardiogram PT OT speech evaluation. Please consult neurology in the morning (2) MAURI (acute kidney injury) with vasomotor nephropathy on CKD stage III Current Visit: Yes Status: Acute Plan to address problem: Avoid nephrotoxic drug. Renally dose medication. Normal saline at the rate of 100 cc/h. BMP in the morning (3) Diabetes Current Visit: Yes Status: Acute Plan to address problem: Accu-Chek every 6 hours with Humalog low-dose coverage. Diabetic education (4) Lactic acidosis Current Visit: Yes Status: Acute Plan to address problem: Rocephin 2 g IV daily. Normal saline 100 mL/h. We will repeat the lactic acid. (5) Pleural effusion Current Visit: Yes Status: Acute Plan to address problem: Oxygen via nasal cannula 3 L/min. DuoNeb via nebulizer every 4 hours. Albuterol via nebulizer every 4 hours as needed. We will monitor the patient closely. If needed will consult pulmonary (6) tonic-clonic seizure (7) systemic inflammatory response syndrome secondary to seizures (8) hypoxic respiratory failure on admission (9) DVT prophylaxis Current Visit: Yes Status: Acute Plan to address problem: Heparin 5000 units subcu every 12 hours for DVT prophylaxis. Pepcid 20 mg IV every 12 hours for GI prophylaxis. Patient is a full code History Interval history: Patient seen and examined remains nonverbal at this time but no acute respiratory distress noted. Hospitalist Physical - Physical exam Narrative exam: General appearance: Present: no acute distress, well-nourished, opens his eyes but does not follow any commands or respond. - EENT Eyes: Present: PERRL ENT: hearing intact, clear oral mucosa - Neck Neck: Present: supple, normal ROM - Respiratory Respiratory effort: normal Respiratory: bilateral: CTA - Cardiovascular Heart Sounds: Present: S1 & S2. Absent: rub, click - Extremities Extremities: pulses symmetrical, No edema Peripheral Pulses: within normal limits - Abdominal General gastrointestinal: Present: soft, non-tender, non-distended, normal bowel sounds Male genitourinary: Present: normal - Integumentary Integumentary: Present: clear, warm, dry - Musculoskeletal Musculoskeletal: Motor strength unable to fully examine. There is no flaccidity appreciated of bilateral upper extremity. - Psychiatric Psychiatric: other (Patient is altered mental status) appears obtunded - Neurologic Neurologic: CNII-XII intact, moves all extremities, other (Patient is altered mental status) - Constitutional Vitals: Temp Pulse Resp BP Pulse Ox 98.0 F 93 H 18 103/62 98 12/15/21 08:22 12/15/21 09:28 12/15/21 09:28 12/15/21 08:22 12/15/21 09:31 General appearance: Present: no acute distress, well-nourished HEART Score - HEART Score Troponin: Troponin T 0.062 ng/mL (0.00-0.029) H 12/13/21 22:49 Results - Labs CBC & Chem 7: 12/14/21 00:26 12/14/21 10:07 Labs: Laboratory Last Values WBC 12.9 K/mm3 (4.5-11.0) H 12/13/21 22:49 RBC 6.39 M/mm3 (3.65-5.03) H 12/13/21 22:49 Hgb 16.7 gm/dl (11.8-15.2) H 12/14/21 00:26 Hct 53.1 % (35.5-45.6) H 12/14/21 00:26 MCV 80 fl (84-94) L 12/13/21 22:49 MCH 26 pg (28-32) L 12/13/21 22:49 MCHC 33 % (32-34) 12/13/21 22:49 RDW 19.2 % (13.2-15.2) H 12/13/21 22:49 Plt Count 101 K/mm3 (140-440) L 12/13/21 22:49 Lymph % (Auto) 6.6 % (13.4-35.0) L 12/13/21 22:49 [place] % (Auto) 11.0 % (0.0-7.3) H 12/13/21 22:49 Eos % (Auto) 0.1 % (0.0-4.3) 12/13/21 22:49 Baso % (Auto) 0.3 % (0.0-1.8) 12/13/21 22:49 Lymph # (Auto) 0.9 K/mm3 (1.2-5.4) L 12/13/21 22:49 [place] # (Auto) 1.4 K/mm3 (0.0-0.8) H 12/13/21 22:49 Eos # (Auto) 0.0 K/mm3 (0.0-0.4) 12/13/21 22:49 Baso # (Auto) 0.0 K/mm3 (0.0-0.1) 12/13/21 22:49 Seg Neutrophils % 82.0 % (40.0-70.0) H 12/13/21 22:49 Seg Neutrophils # 10.6 K/mm3 (1.8-7.7) H 12/13/21 22:49 PT 13.3 Sec. (12.2-14.9) 12/14/21 00:26 INR 0.92 (0.87-1.13) 12/14/21 00:26 APTT 33.3 Sec. (24.2-36.6) 12/14/21 00:26 Thrombin Time 18.7 Sec. (15.1-19.6) 12/13/21 22:49 D-Dimer 1278.36 ng/mlDDU (0-234) H 12/14/21 07:14 Heparin Anti-Xa Level 0.65 U.I./ml (0.3-0.7) 12/15/21 05:12 VBG pH 7.393 (7.320-7.420) 12/13/21 22:49 Sodium 147 mmol/L (137-145) H 12/14/21 10:07 Potassium 4.3 mmol/L (3.6-5.0) 12/14/21 10:07 Chloride 99.2 mmol/L (98-107) 12/14/21 10:07 Carbon Dioxide 21 mmol/L (22-30) L D 12/14/21 10:07 Anion Gap 31 mmol/L 12/14/21 10:07 BUN 62 mg/dL (9-20) H 12/14/21 10:07 Creatinine 2.5 mg/dL (0.8-1.3) H 12/14/21 10:07 Estimated GFR 26 ml/min 12/14/21 10:07 BUN/Creatinine Ratio 25 % 12/14/21 10:07 Glucose 224 mg/dL (75-100) H 12/14/21 10:07 Glucose 237 mg/dL (75-100) H 12/14/21 10:07 POC Glucose 186 mg/dL (70-105) H 12/14/21 20:01 Lactic Acid 1.70 mmol/L (0.7-2.0) 12/14/21 19:48 Calcium 9.4 mg/dL (8.4-10.2) 12/14/21 10:07 Magnesium 2.30 mg/dL (1.7-2.3) 12/13/21 22:49 Ferritin 412.0 ng/mL (30.0-300.0) H 12/14/21 10:07 Total Bilirubin 0.30 mg/dL (0.1-1.2) 12/14/21 10:07 AST 21 units/L (5-40) 12/14/21 10:07 ALT 13 units/L (7-56) 12/14/21 10:07 Alkaline Phosphatase 176 units/L (35-129) H 12/14/21 10:07 Ammonia 10.0 umol/L (25-60) L 12/13/21 22:49 Lactate Dehydrogenase 205 units/L (91-180) H 12/14/21 10:07 Total Creatine Kinase 17 units/L (55-170) L 12/13/21 22:49 CK-MB (CK-2) 1.3 ng/mL (0.0-4.0) 12/13/21 22:49 CK-MB (CK-2) Rel Index 7.6 (0-4) H 12/13/21 22:49 Troponin T 0.062 ng/mL (0.00-0.029) H 12/13/21 22:49 C-Reactive Protein 3.90 mg/dL (0.00-1.30) H 12/14/21 10:07 Total Protein 7.4 g/dL (6.3-8.2) 12/14/21 10:07 Albumin 3.5 g/dL (3.9-5) L 12/14/21 10:07 Albumin/Globulin Ratio 0.9 % 12/14/21 10:07 Triglycerides 250 mg/dL (2-149) H 12/13/21 22:49 Cholesterol 185 mg/dL (50-199) 12/13/21 22:49 LDL Cholesterol Direct 87 mg/dL (50-130) 12/13/21 22:49 HDL Cholesterol 27 mg/dL (40-59) L 12/13/21 22:49 Cholesterol/HDL Ratio 6.85 % 12/13/21 22:49 Procalcitonin 0.16 ng/mL (<0.15) 12/14/21 10:07 TSH 0.616 mlU/mL (0.270-4.200) 12/13/21 22:49 Free T4 1.45 ng/dL (0.76-1.46) 12/13/21 22:49 Plasma/Serum Alcohol < 0.01 % (0-0.07) 12/13/21 22:49 Coronavirus (PCR) Negative (Negative) 12/14/21 10:50 [place]/IV: Voiding Method Condom Catheter Active Medications - Current Medications Current Medications: Generic Name Dose Route Start Last Admin Trade Name Freq PRN Reason Stop Dose Admin Acetaminophen 650 mg 12/14/21 00:30 Acetaminophen 325 Mg Tab PO Q4H PRN Pain MILD(1-3)/Fever >100.5/ROGERS Albuterol 2.5 mg 12/14/21 00:30 Albuterol 2.5 Mg/3 Ml Nebu IH Q3HRT PRN Shortness Of Breath Albuterol/Ipratropium 1 ampul 12/14/21 02:00 12/15/21 09:28 Ipratropium/Albuterol Sulfate 3 Ml Ampul.Neb IH 1 ampul Q6HRT ALEXSANDRA Administration Ascorbic Acid 500 mg 12/14/21 10:00 12/14/21 21:51 Ascorbic Acid 500 Mg Tab PO 500 mg BID ALEXSANDRA Administration Aspirin 81 mg 12/14/21 10:00 12/14/21 10:50 Aspirin Ec 81 Mg Tab PO 81 mg QDAY ALEXSANDRA Administration Atorvastatin Calcium 80 mg 12/14/21 22:00 12/14/21 21:49 Atorvastatin 40 Mg Tab PO 80 mg QHS ALEXSANDRA Administration Carvedilol 3.125 mg 12/14/21 10:00 12/14/21 21:49 Carvedilol 3.125 Mg Tab PO 3.125 mg BID ALEXSANDRA Administration Cholecalciferol 1,000 unit 12/14/21 10:00 12/14/21 10:51 Cholecalciferol (Vit D3) 400 Unit Tab PO 1,000 unit QDAY ALEXSANDRA Administration Dextrose 50 ml 12/14/21 00:30 Dextrose 50% In Water (25gm) 50 Ml Syringe IV Q30MIN PRN Hypoglycemia Protocol Famotidine 20 mg 12/14/21 10:00 12/14/21 10:51 Famotidine 20 Mg/2 Ml Inj IV 20 mg DAILY ALEXSANDRA Administration Heparin Sodium (Porcine) 5,000 unit 12/15/21 22:00 Heparin 5,000 Unit/1 Ml Vial SUB-Q Q8HR [facility] Sodium Chloride 1,000 mls @ 100 mls/hr 12/14/21 00:30 12/14/21 17:04 Nacl 0.9% 1000 Ml IV 100 mls/hr DIRECT ALEXSANDRA Administration Ceftriaxone Sodium 2 gm in 100 mls @ 200 mls/hr 12/14/21 01:00 12/15/21 00:34 Rocephin/Ns 2 Gm/100 Ml IV 200 mls/hr Q24H ALEXSANDRA Administration Protocol Insulin Human Lispro 0 unit 12/14/21 06:00 12/15/21 06:11 Insulin Lispro 100 Unit/Ml SUB-Q 5 unit Q6HR ALEXSANDRA Administration Protocol Labetalol HCl 10 mg 12/14/21 00:30 Labetalol 20 Mg/4 Ml Inj IV Q5MIN PRN to maintain SBP < 180 Methylprednisolone Sodium Succinate 40 mg 12/14/21 14:00 12/15/21 06:11 Methylprednisolone Sod Succinate 40 Mg/1 Ml Inj IV 40 mg Q8HR ALEXSANDRA Administration Morphine Sulfate 2 mg 12/14/21 00:30 Morphine 2 Mg/1 Ml Inj IV Q4H PRN Pain, Moderate (4-6) Morphine Sulfate 4 mg 12/14/21 00:30 Morphine 4 Mg/1 Ml Inj IV Q4H PRN Pain , Severe (7-10) Ondansetron HCl 4 mg 12/14/21 00:30 Ondansetron 4 Mg/2 Ml Inj IV Q8H PRN Nausea And Vomiting Sertraline HCl 100 mg 12/14/21 10:00 12/14/21 10:52 Sertraline 100 Mg Tab PO 100 mg QDAY ALEXSANDRA Administration Sodium Chloride 10 ml 12/14/21 10:00 12/14/21 21:50 Sodium Chloride 0.9% 10 Ml Flush Syringe IV 10 ml BID ALEXSANDRA Administration Sodium Chloride 10 ml 12/14/21 00:30 Sodium Chloride 0.9% 10 Ml Flush Syringe IV PRN PRN LINE FLUSH Tamsulosin HCl 0.4 mg 12/14/21 10:00 12/14/21 10:50 Tamsulosin 0.4 Mg Cap PO 0.4 mg QDAY ALEXSANDRA Administration Torsemide 20 mg 12/14/21 10:00 12/14/21 10:50 Torsemide 10 Mg Tab PO 20 mg QDAY ALEXSANDRA Administration Zinc Sulfate 220 mg 12/14/21 10:00 12/14/21 21:51 Zinc Sulfate 220 Mg Cap PO 220 mg BID ALEXSANDRA Administration Nutrition/Malnutrition Assess - Dietary Evaluation Nutrition/Malnutrition Findings: Nutrition Notes Start: 12/14/21 14:50 Freq: Status: Active Protocol: Document 12/14/21 14:50 JARON (Rec: 12/14/21 15:04 JARON [email or web address]) Nutrition Notes Need for Assessment generated from: MD Order,Education Initial or Follow up Brief Note Current Diagnosis Diabetes,Hypertension, Respiratory Failure,Stroke Other Pertinent Diagnosis Metabolic Encephalopathy, Pleural Effusion, COVID-19 pui , R-CA Occlusion... Current Diet NPO (since 12/14 07:31). 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 Weight Status Overweight Subjective/Other Information RD consult for nutrition education assessment. Pt currently on NPO. Pt is on Nasal Cannula, O2 saturation @ 99%, according to Physical Assessment History notes. Pt has missing teeth, according to Physical Assessment History notes. Pt is bedbound, according to Physical Assessment History notes. Pt needs total assistance with ADL activities, not a candidate for Nutrition Education. Pt is currently lethargic and failed bedside swallow screen test, according to Progress notes. Percent of energy/protein needs met: Pt currently on NPO. Nutrition Intervention Follow-Up By: 12/16/21 Additional Comments When pertinent, start monitoring food tolerance, %PO intake of meals, and BM.
[2021-12-15] MEDS: FAMOTIDINE 20 MG/2 ML INJ IV SCH (14:23)
[2021-12-15] MEDS: TORSEMIDE 10 MG TAB PO SCH (14:24)
[2021-12-15] MEDS: ZINC SULFATE 220 MG CAP PO SCH ×2 (14:25→22:48)
[2021-12-15] MEDS: ASPIRIN EC 81 MG TAB PO SCH (14:29)
[2021-12-15] MEDS: CHOLECALCIFEROL (VIT D3) 400 UNIT TAB PO SCH (14:30)
--- NOTE | 2021-12-15 14:55 | Consultation ---
History of Present Illness - History of Present Illness Thank you for the consultation ! My assessment and plan are as follows If you have any question in regards to this patient renal care please feel free to contact me at [phone] #Chronic kidney disease in a patient who 66-year-old Baseline creatinine has been close to 2 for the last week or so, current creatinine is around 2.5, electrolytes however appear to be stable other than mild hypernatremia lactic acidosis appears to be improving, there is no urgent or emergent indication for renal placement therapy at this point, patient renal ultrasonogram as of today shows evidence of bilateral increased echogenicity Patient does have multiple risk factor for underlying chronic kidney disease and progression especially in the postcontrast setting He is at risk for radiocontrast nephropathy and needs to be monitored closely, his lactic acidosis appears to be improving electrolytes appear to be stable #Renal ultrasonogram shows evidence of echogenic kidneys suggestive for chronic kidney disease underlying, #Lactic acidosis appears to be improving #Strict intake and output monitoring is required, patient currently does have a condom catheter #CTA shows evidence of occlusion of right common carotid artery and small age- indeterminate right rice radiata white matter lacunar infarction Author: Jayjay Roger M.D. [facility], [address] [place] [address] Tel; [phone] [place] Source of information: From the current chart History of present illness: 66-year-old male who has been admitted here since December 13, 2021 with generalized tonic-clonic seizure that lasted nearly a minute, seen by neurology, patient had a CTA done which showed occlusion of the right carotid artery creatinine was 1.9 on December 13. Review of the old record shows that his creatinine was 1.9, earlier on December 09 his creatinine was 2.3 current creatinine is 2.5, patient has also been noted to be acidotic, lactate was elevated at 2.2 but improving at 1.7, calcium was 10.3 which has improved to 9.4, alkaline phosphatase is also improving, COVID 19 test was negative, patient's hemoglobin however has declined from 16.8-13.3. Events of this hospitalization were noted Past medical history: Reviewed from the current chart Current allergies: Reviewed from the current chart Social history: Reviewed from the current chart Family history: Reviewed from the current chart Review of system: Patient could not be examined as when I came to the room he was out for testing Physical examination Vitals: Reviewed Physical examination findings were reviewed from the current chart as patient had gone out for testing Labs and x-rays: Reviewed from this admission Past History Past Medical History: diabetes, stroke Past Surgical History: No surgical history, Other (G-tube) Social history: no significant social history Family history: hypertension Medications and Allergies Allergies Allergy/AdvReac Type Severity Reaction Status Date / Time No Known Allergies Allergy Verified 12/09/21 12:16 Home Medications Medication Instructions Recorded Confirmed Last Taken Type cephALEXin [Keflex] 500 mg PO Q6HR 7 Days #28 capsule 12/09/21 12/14/21 Unknown Rx Aspirin [[place] Aspirin EC] 81 mg PO QDAY 12/14/21 12/14/21 Unknown History Atorvastatin [Lipitor Tab] 80 mg PO QHS 12/14/21 12/14/21 Unknown History Dapagliflozin Propanediol [Farxiga] 10 mg PO QDAY 12/14/21 12/14/21 Unknown History Insulin Detemir [Levemir VIAL] 25 unit SQ QHS 12/14/21 12/14/21 Unknown History Insulin Lispro [Admelog] 100 unit SQ ACHS 12/14/21 12/14/21 Unknown History Sertraline [Zoloft] 100 mg PO QDAY 12/14/21 12/14/21 Unknown History Tamsulosin [Flomax] 0.4 mg PO QDAY 12/14/21 12/14/21 Unknown History Torsemide [Demadex] 20 mg PO QDAY 12/14/21 12/14/21 Unknown History carvediloL [Coreg] 3.125 mg PO BID 12/14/21 12/14/21 Unknown History Active Meds: Active Medications Acetaminophen (Acetaminophen 325 Mg Tab) 650 mg PO Q4H PRN PRN Reason: Pain MILD(1-3)/Fever >100.5/ROGERS Albuterol (Albuterol 2.5 Mg/3 Ml Nebu) 2.5 mg IH Q3HRT PRN PRN Reason: Shortness Of Breath Albuterol/Ipratropium (Ipratropium/Albuterol Sulfate 3 Ml Ampul.Neb) 1 ampul IH Q6HRT ALEXSANDRA Last Admin: 12/15/21 09:28 Dose: 1 ampul Ascorbic Acid (Ascorbic Acid 500 Mg Tab) 500 mg PO BID [facility] Last Admin: 12/14/21 21:51 Dose: 500 mg Aspirin (Aspirin Ec 81 Mg Tab) 81 mg PO QDAY [facility] Last Admin: 12/14/21 10:50 Dose: 81 mg Atorvastatin Calcium (Atorvastatin 40 Mg Tab) 80 mg PO QHS ALEXSANDRA Last Admin: 12/14/21 21:49 Dose: 80 mg Carvedilol (Carvedilol 3.125 Mg Tab) 3.125 mg PO BID [facility] Last Admin: 12/14/21 21:49 Dose: 3.125 mg Cholecalciferol (Cholecalciferol (Vit D3) 400 Unit Tab) 1,000 unit PO QDAY [facility] Last Admin: 12/14/21 10:51 Dose: 1,000 unit Dextrose (Dextrose 50% In Water (25gm) 50 Ml Syringe) 50 ml IV Q30MIN PRN; Protocol PRN Reason: Hypoglycemia Famotidine (Famotidine 20 Mg/2 Ml Inj) 20 mg IV DAILY [facility] Last Admin: 12/14/21 10:51 Dose: 20 mg Heparin Sodium (Porcine) (Heparin 5,000 Unit/1 Ml Vial) 5,000 unit SUB-Q Q8HR [facility] Sodium Chloride (Nacl 0.9% 1000 Ml) 1,000 mls @ 100 mls/hr IV DIRECT ALEXSANDRA Last Admin: 12/14/21 17:04 Dose: 100 mls/hr Ceftriaxone Sodium (Rocephin/Ns 2 Gm/100 Ml) 2 gm in 100 mls @ 200 mls/hr IV Q24H [facility]; Protocol Last Admin: 12/15/21 00:34 Dose: 200 mls/hr Insulin Human Lispro (Insulin Lispro 100 Unit/Ml) 0 unit SUB-Q Q6HR ALEXSANDRA; Protoc ol Last Admin: 12/15/21 06:11 Dose: 5 unit Labetalol HCl (Labetalol 20 Mg/4 Ml Inj) 10 mg IV Q5MIN PRN PRN Reason: to maintain SBP < 180 Methylprednisolone Sodium Succinate (Methylprednisolone Sod Succinate 40 Mg/1 Ml Inj) 40 mg IV Q8HR ALEXSANDRA Last Admin: 12/15/21 06:11 Dose: 40 mg Morphine Sulfate (Morphine 2 Mg/1 Ml Inj) 2 mg IV Q4H PRN PRN Reason: Pain, Moderate (4-6) Morphine Sulfate (Morphine 4 Mg/1 Ml Inj) 4 mg IV Q4H PRN PRN Reason: Pain , Severe (7-10) Ondansetron HCl (Ondansetron 4 Mg/2 Ml Inj) 4 mg IV Q8H PRN PRN Reason: Nausea And Vomiting Sertraline HCl (Sertraline 100 Mg Tab) 100 mg PO QDAY [facility] Last Admin: 12/14/21 10:52 Dose: 100 mg Sodium Chloride (Sodium Chloride 0.9% 10 Ml Flush Syringe) 10 ml IV BID [facility] Last Admin: 12/14/21 21:50 Dose: 10 ml Sodium Chloride (Sodium Chloride 0.9% 10 Ml Flush Syringe) 10 ml IV PRN PRN PRN Reason: LINE FLUSH Tamsulosin HCl (Tamsulosin 0.4 Mg Cap) 0.4 mg PO QDAY [facility] Last Admin: 12/14/21 10:50 Dose: 0.4 mg Torsemide (Torsemide 10 Mg Tab) 20 mg PO QDAY [facility] Last Admin: 12/14/21 10:50 Dose: 20 mg Zinc Sulfate (Zinc Sulfate 220 Mg Cap) 220 mg PO BID [facility] Last Admin: 12/14/21 21:51 Dose: 220 mg Exam - Vital Signs Vital signs: Vital Signs Temp Pulse Resp BP Pulse Ox 98.4 F 105 H 18 105/50 100 12/13/21 20:53 12/13/21 20:53 12/13/21 20:53 12/13/21 20:53 12/13/21 20:53 Results - Lab Results 12/15/21 19:05 12/14/21 10:07 Most recent lab results Calcium 9.4 mg/dL (8.4-10.2) 12/14/21 10:07 Magnesium 2.30 mg/dL (1.7-2.3) 12/13/21 22:49
--- NOTE | 2021-12-15 15:06 | Consultation ---
History of Present Illness - Reason for Consult Consult date: 12/15/21 right carotic occlusion Requesting physician: LOUIS CASTREJON - History of Present Illness 66-year-old male with past medical history of CVA, diabetes was brought to the emergency room because of altered mental status. Patient is was sent from [facility] after he was noted to be unresponsive approximately 2 hours ago. Per nursing the patient is normally talkative. EMS was called and found the patient to be hypoxic to 88% on room air and patient was placed on a nonrebreather. The patient is currently unresponsive with eyes open Case discussed with tele-neurologist Dr. Ha-given last known well time of 09: 00 patient is not a tPA candidate. As patient is bedbound he is not a cand idate for thrombectomy. CTA shows occlusion of right carotid artery however intracranially there is no occlusion seen CT scan obtained of the head and neck demonstrated right internal carotid artery and common carotid artery occlusion. Vascular consulted. Patient is somnolent and unresponsive. He does not move any body part spontaneously or respond. He has nonpalpable pedal pulses with ulcerations of the right toes. He has palpable radial and ulnar pulses. Past History Past Medical History: diabetes, stroke Past Surgical History: No surgical history, Other (G-tube) Social history: no significant social history Family history: hypertension Medications and Allergies Allergies Allergy/AdvReac Type Severity Reaction Status Date / Time No Known Allergies Allergy Verified 12/09/21 12:16 Home Medications Medication Instructions Recorded Confirmed Last Taken Type cephALEXin [Keflex] 500 mg PO Q6HR 7 Days #28 capsule 12/09/21 12/14/21 Unknown Rx Aspirin [[place] Aspirin EC] 81 mg PO QDAY 12/14/21 12/14/21 Unknown History Atorvastatin [Lipitor Tab] 80 mg PO QHS 12/14/21 12/14/21 Unknown History Dapagliflozin Propanediol [Farxiga] 10 mg PO QDAY 12/14/21 12/14/21 Unknown His tory Insulin Detemir [Levemir VIAL] 25 unit SQ QHS 12/14/21 12/14/21 Unknown History Insulin Lispro [Admelog] 100 unit SQ ACHS 12/14/21 12/14/21 Unknown History Sertraline [Zoloft] 100 mg PO QDAY 12/14/21 12/14/21 Unknown History Tamsulosin [Flomax] 0.4 mg PO QDAY 12/14/21 12/14/21 Unknown History Torsemide [Demadex] 20 mg PO QDAY 12/14/21 12/14/21 Unknown History carvediloL [Coreg] 3.125 mg PO BID 12/14/21 12/14/21 Unknown History Active Meds: Active Medications Acetaminophen (Acetaminophen 325 Mg Tab) 650 mg PO Q4H PRN PRN Reason: Pain MILD(1-3)/Fever >100.5/ROGERS Albuterol (Albuterol 2.5 Mg/3 Ml Nebu) 2.5 mg IH Q3HRT PRN PRN Reason: Shortness Of Breath Albuterol/Ipratropium (Ipratropium/Albuterol Sulfate 3 Ml Ampul.Neb) 1 ampul IH Q6HRT [facility] Last Admin: 12/15/21 09:28 Dose: 1 ampul Ascorbic Acid (Ascorbic Acid 500 Mg Tab) 500 mg PO BID [facility] Last Admin: 12/14/21 21:51 Dose: 500 mg Aspirin (Aspirin Ec 81 Mg Tab) 81 mg PO QDAY [facility] Last Admin: 12/14/21 10:50 Dose: 81 mg Atorvastatin Calcium (Atorvastatin 40 Mg Tab) 80 mg PO QHS [facility] Last Admin: 12/14/21 21:49 Dose: 80 mg Carvedilol (Carvedilol 3.125 Mg Tab) 3.125 mg PO BID [facility] Last Admin: 12/14/21 21:49 Dose: 3.125 mg Cholecalciferol (Cholecalciferol (Vit D3) 400 Unit Tab) 1,000 unit PO QDAY [facility] Last Admin: 12/14/21 10:51 Dose: 1,000 unit Dextrose (Dextrose 50% In Water (25gm) 50 Ml Syringe) 50 ml IV Q30MIN PRN; Protocol PRN Reason: Hypoglycemia Famotidine (Famotidine 20 Mg/2 Ml Inj) 20 mg IV DAILY [facility] Last Admin: 12/14/21 10:51 Dose: 20 mg Heparin Sodium (Porcine) (Heparin 5,000 Unit/1 Ml Vial) 5,000 unit SUB-Q Q8HR [facility] Sodium Chloride (Nacl 0.9% 1000 Ml) 1,000 mls @ 100 mls/hr IV DIRECT [facility] Last Admin: 12/14/21 17:04 Dose: 100 mls/hr Ceftriaxone Sodium (Rocephin/Ns 2 Gm/100 Ml) 2 gm in 100 mls @ 200 mls/hr IV Q24H [facility]; Protocol Last Admin: 12/15/21 00:34 Dose: 200 mls/hr Insulin Human Lispro (Insulin Lispro 100 Unit/Ml) 0 unit SUB-Q Q6HR [facility]; Protocol Last Admin: 12/15/21 06:11 Dose: 5 unit Labetalol HCl (Labetalol 20 Mg/4 Ml Inj) 10 mg IV Q5MIN PRN PRN Reason: to maintain SBP < 180 Methylprednisolone Sodium Succinate (Methylprednisolone Sod Succinate 40 Mg/1 Ml Inj) 40 mg IV Q8HR [facility] Last Admin: 12/15/21 06:11 Dose: 40 mg Morphine Sulfate (Morphine 2 Mg/1 Ml Inj) 2 mg IV Q4H PRN PRN Reason: Pain, Moderate (4-6) Morphine Sulfate (Morphine 4 Mg/1 Ml Inj) 4 mg IV Q4H PRN PRN Reason: Pain , Severe (7-10) Ondansetron HCl (Ondansetron 4 Mg/2 Ml Inj) 4 mg IV Q8H PRN PRN Reason: Nausea And Vomiting Sertraline HCl (Sertraline 100 Mg Tab) 100 mg PO QDAY [facility] Last Admin: 12/14/21 10:52 Dose: 100 mg Sodium Chloride (Sodium Chloride 0.9% 10 Ml Flush Syringe) 10 ml IV BID [facility] Last Admin: 12/14/21 21:50 Dose: 10 ml Sodium Chloride (Sodium Chloride 0.9% 10 Ml Flush Syringe) 10 ml IV PRN PRN PRN Reason: LINE FLUSH Tamsulosin HCl (Tamsulosin 0.4 Mg Cap) 0.4 mg PO QDAY [facility] Last Admin: 12/14/21 10:50 Dose: 0.4 mg Torsemide (Torsemide 10 Mg Tab) 20 mg PO QDAY [facility] Last Admin: 12/14/21 10:50 Dose: 20 mg Zinc Sulfate (Zinc Sulfate 220 Mg Cap) 220 mg PO BID [facility] Last Admin: 12/14/21 21:51 Dose: 220 mg Review of Systems ROS unobtainable: due to mental status Exam - Constitutional Vitals: Temp Pulse Resp BP Pulse Ox 98.0 F 93 H 18 103/62 98 12/15/21 08:22 12/15/21 09:28 12/15/21 09:28 12/15/21 08:22 12/15/21 09:31 General appearance: Present: other (Somnolent, unresponsive) - EENT ENT: other (Somnolent unresponsive) - Neck Neck: Present: supple - Respiratory Respiratory effort: normal - Extremities Extremities: abnormal (Nonpalpable pedal pulses, palpable radial and ulnar pulses, ulcerations of the right forefoot and toes) - Abdominal General gastrointestinal: Present: soft, non-tender - Psychiatric Psychiatric: other (Somnolent and nonresponsive) Results - Labs CBC & Chem 7: 12/14/21 00:26 12/14/21 10:07 Labs: Abnormal lab results 12/14/21 12/14/21 12/14/21 Range/Units 16:02 19:48 20:01 Heparin Anti-Xa Level 0.94 H (0.3-0.7) U.I./ml POC Glucose 241 H 186 H (70-105) mg/dL Assessment and Plan 66-year-old male with recent admission for presumed CVA status post CT angiogram of head and neck demonstrating right common carotid and internal carotid artery occlusion. Patient is nonresponsive and somnolent. No ability to obtain information from the patient. Symmetrically nonpalpable pedal pulses with ulcerations of the right toes, likely element of CLI given extensive smoking history. Unfortunately not important until patient's mental status improves. No plan for vascular intervention. Consider MRI. Consider neurology consult.
--- NOTE | 2021-12-15 15:42 | XRay Report ---
CHEST 1 VIEW 12/15/2021 2:52 PM INDICATION / CLINICAL INFORMATION: HYPOXIA. COMPARISON: 12/13/2021 FINDINGS: SUPPORT DEVICES: None. HEART / MEDIASTINUM: Unchanged LUNGS / PLEURA: There is increase in interstitial markings bilaterally suggesting mild edema. There i s a small left pleural effusion/pleural thickening. No pneumothorax. ADDITIONAL FINDINGS: No significant additional findings. IMPRESSION: 1. There is mild increase in interstitial markings suggesting edema. Small left pleural effusion vers us pleural thickening. Signer Name: Bharat Encinas MD Signed: 12/15/2021 3:38 PM Workstation Name: [id number]
--- NOTE | 2021-12-15 16:35 | Vascular Lab Report ---
DUPLEX DOPPLER LOWER EXTREMITY VEINS, BILATERAL INDICATION / CLINICAL INFORMATION: dvt. TECHNIQUE: Duplex doppler imaging was performed through the veins of both lower extremities using mily ous compression and other maneuvers. COMPARISON: None available. FINDINGS: RIGHT COMMON FEMORAL VEIN: Negative. RIGHT FEMORAL VEIN: Negative. RIGHT POPLITEAL VEIN: Negative. RIGHT CALF VEINS: Negative. LEFT COMMON FEMORAL VEIN: Negative. LEFT FEMORAL VEIN: Negative. LEFT POPLITEAL VEIN: Negative. LEFT CALF VEINS: Negative. ADDITIONAL FINDINGS: None. IMPRESSION: 1. No sonographic evidence for DVT in either lower extremity. Signer Name: Vaughn Masterson MD Signed: 12/15/2021 4:31 PM Workstation Name: [id number]
[2021-12-15] MEDS ORDERED: HEPARIN 10,000 UNITS/10 ML VIAL IV PRN (16:37)
--- NOTE | 2021-12-15 16:44 | Nuclear Medicine Report ---
NUCLEAR MEDICINE PERFUSION LUNG SCAN INDICATION / CLINICAL INFORMATION: hypoxia. TECHNIQUE: 5 mCi of Tc-99m MAA were given by IV. COMPARISON: Chest radiograph dated 12/15/2021. FINDINGS: PERFUSION: There is marked discrepancy in perfusion between the right left lung with mild perfusion n oted in the left lung. No perfusion defects are identified on the right. Left lung is difficult to ev aluate for discrete defects ADDITIONAL FINDINGS: None. IMPRESSION: 1. Indeterminate probability for pulmonary embolism. There is decreased perfusion noted throughout th e left lung. There is mild increased parenchymal opacity in the left lung and some pleural fluid or p leural thickening on the left on the chest radiograph. If there is decreased aeration to the left arely gs could account for the asymmetry in perfusion. It is possible that this appearance could be caused by a central embolus. If possible, CTA of the chest is recommended Signer Name: Bharat Encinas MD Signed: 12/15/2021 4:40 PM Workstation Name: [id number]
[2021-12-15] MEDS ORDERED: HEPARIN/ 0.45% NACL DRIP 25,000 UNIT/500 ML BAG IV SCH (17:00)
--- NOTE | 2021-12-15 18:19 | Ultrasound Report ---
ULTRASOUND RENAL INDICATION: MAURI. COMPARISON: No relevant prior imaging study available. FINDINGS: RIGHT KIDNEY: Size: 11.3 cm. Echogenicity: Increased. Cortical thickness: Normal. Stones: None. Hydronephrosis: None. Cyst or mass: None. LEFT KIDNEY: Size: 11.6 cm. Echogenicity: Increased. Cortical thickness: Normal. Stones: None. Hydronephrosis: None. Cyst or mass: None. Urinary Bladder: No significant abnormality. Free Fluid: None. Additional Findings: None. IMPRESSION 1. Bilateral increased renal cortical echogenicity suggesting medical renal disease.. Signer Name: Solomon Zamudio MD Signed: 12/15/2021 6:15 PM Workstation Name: [id number]
[2021-12-15] MEDS: SERTRALINE 100 MG TAB PO SCH (18:40)
[2021-12-15 19:25] LABS: Hematocrit 41.5 % (35.5-45.6); Hemoglobin 13.3 gm/dl (11.8-15.2)
[2021-12-15 20:05] LABS: INR 1.04 (0.87-1.13); Partial Thromboplastin Time 105.5 Sec. (24.2-36.6)
[2021-12-15] MEDS ORDERED: HEPARIN 5,000 UNIT/1 ML VIAL SUB-Q SCH (22:00)
--- NOTE | 2021-12-15 23:06 | Consultation ---
History of Present Illness Consult date: 12/15/21 Reason for Consult: CVA Chief complaint: Acute Encephalopathy History of present illness: Patient at a procedure during rounds at 15:55. History obtained from EMR. 66 yo male with cva, dm who presents with noted acute encephalopathy- and noted with hypoxemia. Workup in ED included telestroke evaluation during which cta revealed a right ica occlusion. Patient did not receive TNK and is not a thrombectomy candidate due to baseline mRS of 5. Past History Past Medical History: diabetes, stroke Past Surgical History: No surgical history, Other (G-tube) Social history: no significant social history Family history: hypertension Medications and Allergies Allergies Allergy/AdvReac Type Severity Reaction Status Date / Time No Known Allergies Allergy Verified 12/09/21 12:16 Home Medications Medication Instructions Recorded Confirmed Last Taken Type cephALEXin [Keflex] 500 mg PO Q6HR 7 Days #28 capsule 12/09/21 12/14/21 Unknown Rx Aspirin [[place] Aspirin EC] 81 mg PO QDAY 12/14/21 12/14/21 Unknown History Atorvastatin [Lipitor Tab] 80 mg PO QHS 12/14/21 12/14/21 Unknown History Dapagliflozin Propanediol [Farxiga] 10 mg PO QDAY 12/14/21 12/14/21 Unknown History Insulin Detemir [Levemir VIAL] 25 unit SQ QHS 12/14/21 12/14/21 Unknown History Insulin Lispro [Admelog] 100 unit SQ ACHS 12/14/21 12/14/21 Unknown History Sertraline [Zoloft] 100 mg PO QDAY 12/14/21 12/14/21 Unknown History Tamsulosin [Flomax] 0.4 mg PO QDAY 12/14/21 12/14/21 Unknown History Torsemide [Demadex] 20 mg PO QDAY 12/14/21 12/14/21 Unknown History carvediloL [Coreg] 3.125 mg PO BID 12/14/21 12/14/21 Unknown History Active Meds: Active Medications Acetaminophen (Acetaminophen 325 Mg Tab) 650 mg PO Q4H PRN PRN Reason: Pain MILD(1-3)/Fever >100.5/[place]ERS Albuterol (Albuterol 2.5 Mg/3 Ml Nebu) 2.5 mg IH Q3HRT PRN PRN Reason: Shortness Of Breath Albuterol/Ipratropium (Ipratropium/Albuterol Sulfate 3 Ml Ampul.Neb) 1 ampul IH Q6HRT [facility] Last Admin: 12/15/21 21:36 Dose: 1 ampul Ascorbic Acid (Ascorbic Acid 500 Mg Tab) 500 mg PO BID [facility] Last Admin: 12/15/21 22:49 Dose: 500 mg Aspirin (Aspirin Ec 81 Mg Tab) 81 mg PO QDAY [facility] Last Admin: 12/15/21 14:29 Dose: 81 mg Atorvastatin Calcium (Atorvastatin 40 Mg Tab) 80 mg PO QHS [facility] Last Admin: 12/15/21 22:49 Dose: 80 mg Carvedilol (Carvedilol 3.125 Mg Tab) 3.125 mg PO BID [facility] Last Admin: 12/15/21 22:49 Dose: 3.125 mg Cholecalciferol (Cholecalciferol (Vit D3) 400 Unit Tab) 1,000 unit PO QDAY [facility] Last Admin: 12/15/21 14:30 Dose: 1,000 unit Dextrose (Dextrose 50% In Water (25gm) 50 Ml Syringe) 50 ml IV Q30MIN PRN; Protocol PRN Reason: Hypoglycemia Famotidine (Famotidine 20 Mg/2 Ml Inj) 20 mg IV DAILY [facility] Last Admin: 12/15/21 14:23 Dose: 20 mg Heparin Sodium (Porcine) (Heparin 10,000 Units/10 Ml Vial) 3,100 unit 40 unit/kg (3100 unit) IV Q6H PRN PRN Reason: Anti-Xa Assay < 0.1 units/ml Sodium Chloride (Nacl 0.9% 1000 Ml) 1,000 mls @ 100 mls/hr IV DIRECT [facility] Last Admin: 12/14/21 17:04 Dose: 100 mls/hr Ceftriaxone Sodium (Rocephin/Ns 2 Gm/100 Ml) 2 gm in 100 mls @ 200 mls/hr IV Q24H [facility]; Protocol Last Admin: 12/15/21 00:34 Dose: 200 mls/hr Heparin Sodium/Sodium Chloride (Heparin/ 0.45% Nacl-25,000 Unit/500 Ml) 25,000 unit in 500 mls @ 23 mls/hr IV TITR [facility]; Protocol Last Titration: 12/15/21 19:46 Dose: 750 units/hr, 15 mls/hr Insulin Human Lispro (Insulin Lispro 100 Unit/Ml) 0 unit SUB-Q Q6HR [facility]; Protocol Last Admin: 12/15/21 12:49 Dose: Not Given Labetalol HCl (Labetalol 20 Mg/4 Ml Inj) 10 mg IV Q5MIN PRN PRN Reason: to maintain SBP < 180 Methylprednisolone Sodium Succinate (Methylprednisolone Sod Succinate 40 Mg/1 Ml Inj) 40 mg IV Q8HR [facility] Last Admin: 12/15/21 22:49 Dose: 40 mg Morphine Sulfate (Morphine 2 Mg/1 Ml Inj) 2 mg IV Q4H PRN PRN Reason: Pain, Moderate (4-6) Morphine Sulfate (Morphine 4 Mg/1 Ml Inj) 4 mg IV Q4H PRN PRN Reason: Pain , Severe (7-10) Ondansetron HCl (Ondansetron 4 Mg/2 Ml Inj) 4 mg IV Q8H PRN PRN Reason: Nausea And Vomiting Sertraline HCl (Sertraline 100 Mg Tab) 100 mg PO QDAY [facility] Last Admin: 12/15/21 18:40 Dose: 100 mg Sodium Chloride (Sodium Chloride 0.9% 10 Ml Flush Syringe) 10 ml IV BID [facility] Last Admin: 12/15/21 22:49 Dose: 10 ml Sodium Chloride (Sodium Chloride 0.9% 10 Ml Flush Syringe) 10 ml IV PRN PRN PRN Reason: LINE FLUSH Tamsulosin HCl (Tamsulosin 0.4 Mg Cap) 0.4 mg PO QDAY [facility] Last Admin: 12/15/21 13:34 Dose: 0.4 mg Torsemide (Torsemide 10 Mg Tab) 20 mg PO QDAY [facility] Last Admin: 12/15/21 14:24 Dose: 20 mg Zinc Sulfate (Zinc Sulfate 220 Mg Cap) 220 mg PO BID [facility] Last Admin: 12/15/21 22:48 Dose: 220 mg Physical Examination - Vital Signs Vital Signs: Vital Signs Temp Pulse Resp BP Pulse Ox 98.4 F 105 H 18 105/50 100 12/13/21 20:53 12/13/21 20:53 12/13/21 20:53 12/13/21 20:53 12/13/21 20:53 - Physical Exam Narrative exam: Patient at study during rounds. Results - Laboratory Findings CBC and BMP: 12/15/21 19:05 12/14/21 10:07 Abnormal Lab Findings: Abnormal Labs 12/13/21 12/13/21 12/13/21 22:49 22:49 22:49 WBC 12.9 H RBC 6.39 H Hgb 16.8 H Hct 51.0 H MCV 80 L MCH 26 L RDW 19.2 H Plt Count 101 L Lymph % (Auto) 6.6 L [place] % (Auto) 11.0 H Lymph # (Auto) 0.9 L [place] # (Auto) 1.4 H Seg Neutrophils % 82.0 H Seg Neutrophils # 10.6 H APTT D-Dimer Heparin Anti-Xa Level Sodium Chloride 91.4 L Carbon Dioxide BUN 53 H Creatinine 1.9 H Glucose 191 H POC Glucose Lactic Acid 2.20 H* Calcium 10.3 H D Ferritin Alkaline Phosphatase 205 H Ammonia Lactate Dehydrogenase Total Creatine Kinase 17 L CK-MB (CK-2) Rel Index 7.6 H Troponin T 0.062 H C-Reactive Protein Total Protein 8.3 H Albumin 3.4 L Triglycerides 250 H HDL Cholesterol 27 L 12/13/21 12/13/21 12/14/21 22:49 22:49 00:26 WBC RBC Hgb Hct MCV MCH RDW Plt Count Lymph % (Auto) [place] % (Auto) Lymph # (Auto) [place] # (Auto) Seg Neutrophils % Seg Neutrophils # APTT D-Dimer 965.9 H Heparin Anti-Xa Level Sodium Chloride Carbon Dioxide BUN Creatinine Glucose POC Glucose Lactic Acid 2.10 H* Calcium Ferritin Alkaline Phosphatase Ammonia 10.0 L Lactate Dehydrogenase Total Creatine Kinase CK-MB (CK-2) Rel Index Troponin T C-Reactive Protein Total Protein Albumin Triglycerides HDL Cholesterol 12/14/21 12/14/21 12/14/21 00:26 01:30 06:13 WBC RBC Hgb 16.7 H Hct 53.1 H MCV MCH RDW Plt Count Lymph % (Auto) [place] % (Auto) Lymph # (Auto) [place] # (Auto) Seg Neutrophils % Seg Neutrophils # APTT D-Dimer Heparin Anti-Xa Level Sodium Chloride Carbon Dioxide BUN Creatinine Glucose POC Glucose 279 H Lactic Acid 4.00 H* Calcium Ferritin Alkaline Phosphatase Ammonia Lactate Dehydrogenase Total Creatine Kinase CK-MB (CK-2) Rel Index Troponin T C-Reactive Protein Total Protein Albumin Triglycerides HDL Cholesterol 12/14/21 12/14/21 12/14/21 07:14 07:14 10:07 WBC RBC Hgb Hct MCV MCH RDW Plt Count Lymph % (Auto) [place] % (Auto) Lymph # (Auto) [place] # (Auto) Seg Neutrophils % Seg Neutrophils # APTT D-Dimer 1278.36 H Heparin Anti-Xa Level 1.11 H Sodium Chloride Carbon Dioxide BUN Creatinine Glucose 237 H POC Glucose Lactic Acid 3.50 H* Calcium Ferritin Alkaline Phosphatase Ammonia Lactate Dehydrogenase 205 H Total Creatine Kinase CK-MB (CK-2) Rel Index Troponin T C-Reactive Protein 3.90 H Total Protein Albumin Triglycerides HDL Cholesterol 12/14/21 12/14/21 12/14/21 10:07 10:07 10:07 WBC RBC Hgb Hct MCV MCH RDW Plt Count Lymph % (Auto) [place] % (Auto) Lymph # (Auto) [place] # (Auto) Seg Neutrophils % Seg Neutrophils # APTT D-Dimer Heparin Anti-Xa Level Sodium 147 H Chloride Carbon Dioxide 21 L D BUN 62 H Creatinine 2.5 H Glucose 224 H POC Glucose Lactic Acid 2.20 H* Calcium Ferritin 412.0 H Alkaline Phosphatase 176 H Ammonia Lactate Dehydrogenase Total Creatine Kinase CK-MB (CK-2) Rel Index Troponin T C-Reactive Protein Total Protein Albumin 3.5 L Triglycerides HDL Cholesterol 12/14/21 12/14/21 12/14/21 16:02 19:48 20:01 WBC RBC Hgb Hct MCV MCH RDW Plt Count Lymph % (Auto) [place] % (Auto) Lymph # (Auto) [place] # (Auto) Seg Neutrophils % Seg Neutrophils # APTT D-Dimer Heparin Anti-Xa Level 0.94 H Sodium Chloride Carbon Dioxide BUN Creatinine Glucose POC Glucose 241 H 186 H Lactic Acid Calcium Ferritin Alkaline Phosphatase Ammonia Lactate Dehydrogenase Total Creatine Kinase CK-MB (CK-2) Rel Index Troponin T C-Reactive Protein Total Protein Albumin Triglycerides HDL Cholesterol 12/15/21 12/15/21 12/15/21 19:05 19:05 19:05 WBC RBC Hgb Hct MCV MCH RDW Plt Count 88 L Lymph % (Auto) [place] % (Auto) Lymph # (Auto) [place] # (Auto) Seg Neutrophils % Seg Neutrophils # APTT 105.5 H* D-Dimer Heparin Anti-Xa Level 0.90 H Sodium Chloride Carbon Dioxide BUN Creatinine Glucose POC Glucose Lactic Acid Calcium Ferritin Alkaline Phosphatase Ammonia Lactate Dehydrogenase Total Creatine Kinase CK-MB (CK-2) Rel Index Troponin T C-Reactive Protein Total Protein Albumin Triglycerides HDL Cholesterol Assessment and Plan 66 yo male with cva, dm who presents with noted acute encephalopathy- and noted with hypoxemia. Workup in ED included telestroke evaluation during which cta revealed a right ica occlusion. Patient did not receive TNK and is not a thrombectomy candidate due to baseline mRS of 5. 1. Acute Ischemic Stroke - concern is raised based on cta findings (unclear if right ica occlusion is acute or chronic or acute on chronic); aspirin 325 mg po qday; s/p heparin gtt; recommend mri brain w/ wo contrast; statin therapy for a goal ldl of 70; sbp 160-200 mmHg / dbp 80-100 mmHg; confirm covid-19, uds, tsh, a1c, lipid panel; further workup based on mri findings. 2. Acute Metabolic Encephalopathy - in the setting of metabolic derangements if fever is noted, recommend csf evaluation. 3. Cerebrovascular Disease - R ICA occusion noted; antiplatelet/statin therapy. 4. DM - aim for a goal LDL of 70. 5. History of Stroke - if confirmed w/ ischemic infarction; antiplatelet / stain therapy. Francisco Ruvalcaba MD Neurology
[2021-12-16] MEDS: cefTRIAXone/NS 2 GM/100 ML 2 GM/100 ML BAG IV SCH (02:15)
[2021-12-16] MEDS: IPRATROPIUM/ALBUTEROL SULFATE 3 ML AMPUL.NEB IH SCH ×4 (03:20→21:30)
[2021-12-16 05:05] LABS: Hematocrit 40.3 % (35.5-45.6); Hemoglobin 12.9 gm/dl (11.8-15.2); Mean Corpuscular HGB Conc 32 % (32-34); Mean Corpuscular Volume 81 fl (84-94); Red Blood Count 4.96 M/mm3 (3.65-5.03)
[2021-12-16 05:08] LABS: Platelet Count 82 K/mm3 (140-440); Red Cell Distribution Width 20.8 % (13.2-15.2)
[2021-12-16 05:22] LABS: Calcium 8.7 mg/dL (8.4-10.2)
[2021-12-16] MEDS: SODIUM CHLORIDE 0.9% 1000 ML 1,000 ML IV SCH ×2 (05:54→22:56)
[2021-12-16] MEDS: methylPREDNISolone Sod Succinate 40 MG/1 ML INJ IV SCH (05:55)
[2021-12-16] MEDS: INSULIN LISPRO 100 UNIT/ML SUB-Q SCH ×3 (05:56→19:15)
[2021-12-16] MEDS ORDERED: D5W/0.9% NACL 1,000 ML IV SCH (09:00)
[2021-12-16] MEDS: SERTRALINE 100 MG TAB PO SCH (11:07)
[2021-12-16] MEDS: TORSEMIDE 10 MG TAB PO SCH (11:08)
[2021-12-16] MEDS: ASCORBIC ACID 500 MG TAB PO SCH ×2 (11:08→22:42)
[2021-12-16] MEDS: carvediloL 3.125 MG TAB PO SCH ×2 (11:08→22:42)
[2021-12-16] MEDS: ASPIRIN EC 81 MG TAB PO SCH (11:09)
[2021-12-16] MEDS: ZINC SULFATE 220 MG CAP PO SCH ×2 (11:11→22:41)
[2021-12-16] MEDS: HEPARIN 5,000 UNIT/1 ML VIAL SUB-Q SCH ×2 (13:06→22:41)
[2021-12-16] MEDS: CHOLECALCIFEROL (VIT D3) 1000 UNIT (25 mcg) TAB PO SCH (15:06)
[2021-12-16] MEDS: ACETAMINOPHEN 325 MG TAB PO PRN (16:04)
[2021-12-16] MEDS: TAMSULOSIN 0.4 MG CAP PO SCH (16:09)
--- NOTE | 2021-12-16 16:28 | Progress Note ---
Assessment and Plan Patient is a 66-year-old male with past medical history of CVA, diabetes was brought to the emergency room because of altered mental status. Patient is was sent from [facility] after he was noted to be unresponsive approximately 2 hours ago. Per nursing the patient is normally talkative. EMS was called and found the patient to be hypoxic to 88% on room air and patient was placed on a nonrebreather. The patient is currently unresponsive with eyes open Case discussed with tele-neurologist Dr. Ha-given last known well time of 09: 00 patient is not a tPA candidate. As patient is bedbound he is not a candidate for thrombectomy. CTA shows occlusion of right carotid artery however intracranially there is no occlusion seen Imaging studies including a CT of the head showed There is occlusion of the right common carotid artery from its origin which extends to involve the entire right internal carotid artery with minimal retrograde flow in the distal right ICA. 2. Small age-indeterminate right rice radiata white matter lacunar infarctions. No other occlusion or significant stenosis. Chest x-ray shows no acute pathology. 12/15/21: At this time we will discontinue heparin drip until patient is seen by vascular surgery. MRI still pending, unsure if patient actually had a CVA would not want this to expand with the current heparin drip ordered. Patient does not show persistent hypoxia or in any acute respiratory distress at this time although on 2 L of oxygen with good sustained saturation. We will obtain a VQ scan at this time. I will also obtain nephrology consultation due to acute on chronic CKD creatinine checked on November showed a creatinine of 2.3 although this is close to our recent time and not sure what his underlying baseline is. Continue seizure precautions. Will await for neurology input for possible EEG to rule out status epilepticus. Aspiration precautions 12/16: Mental status improving but unable to complete MRI as we cannot complete the screening process. Seen by vascular and recommended to continue medical management until mental status improves. Plan to repeat CT brain tomorrow in the morning as we cannot do MRI. Renal function continued to get worse, continue IV fluid monitor blood glucose. Hold diuretics Assessment and plan: (1) Acute metabolic encephalopathy Current Visit: Yes Status: Acute Plan to address problem: Admitted the patient to the medical telemetry. Acute metabolic encephalopathy secondary to CVA and MAURI. Aspirin 325 mg p.o. daily. Lipitor 40 mg p.o. daily. We do MRI of the brain and MRA of the brain and neck with and without contrast echocardiogram PT OT speech evaluation. Please consult neurology in the morning (2) MAURI (acute kidney injury) with vasomotor nephropathy on CKD stage III Current Visit: Yes Status: Acute Plan to address problem: Avoid nephrotoxic drug. Renally dose medication. Normal saline at the rate of 100 cc/h. BMP in the morning (3) Diabetes Current Visit: Yes Status: Acute Plan to address problem: Accu-Chek every 6 hours with Humalog low-dose coverage. Diabetic education (4) Lactic acidosis Current Visit: Yes Status: Acute Plan to address problem: Rocephin 2 g IV daily. Normal saline 100 mL/h. We will repeat the lactic acid. (5) Pleural effusion Current Visit: Yes Status: Acute Plan to address problem: Oxygen via nasal cannula 3 L/min. DuoNeb via nebulizer every 4 hours. Albuterol via nebulizer every 4 hours as needed. We will monitor the patient closely. If needed will consult pulmonary (6) tonic-clonic seizure (7) systemic inflammatory response syndrome secondary to seizures (8) hypoxic respiratory failure on admission (9) DVT prophylaxis Current Visit: Yes Status: Acute Plan to address problem: Heparin 5000 units subcu every 12 hours for DVT prophylaxis. Pepcid 20 mg IV every 12 hours for GI prophylaxis. Patient is a full code Subjective Date of service: 12/16/21 Interval history: Patient seen and examined. Medical records and medication list reviewed. No acute event overnight noted by the RN. Patient denies any chest pain or difficulty breathing. Patient is tolerating diet. Discussed plan of care at bedside with patient. Unable to complete MRI, patient remains somewhat confused Objective - Exam Narrative Exam: General appearance: Present: no acute distress, well-nourished, - EENT Eyes: Present: PERRL ENT: hearing intact, clear oral mucosa - Neck Neck: Present: supple, normal ROM - Respiratory Respiratory effort: normal Respiratory: bilateral: CTA - Cardiovascular Heart Sounds: Present: S1 & S2. Absent: rub, click - Extremities Extremities: pulses symmetrical, No edema Peripheral Pulses: within normal limits - Abdominal General gastrointestinal: Present: soft, non-tender, non-distended, normal bowel sounds Male genitourinary: Present: normal - Integumentary Integumentary: Present: clear, warm, dry - Musculoskeletal Musculoskeletal: Motor strength unable to fully examine. There is no flaccidity appreciated of bilateral upper extremity. - Psychiatric Psychiatric: Cooperative - Neurologic Neurologic: CNII-XII intact, moves all extremities, - Constitutional Vitals: Vital Signs - 12hr 12/16/21 12/16/21 12/16/21 07:41 10:00 12:19 Temperature 99.6 F 98.7 F Pulse Rate 104 H 102 H Pulse Rate [ Anterior Bilateral] Respiratory 16 14 Rate Respiratory Rate [Anterior Bilateral] Blood Pressure 132/75 Blood Pressure 114/74 [Right] O2 Sat by Pulse 94 96 96 Oximetry 12/16/21 12/16/21 14:00 16:16 Temperature 99.2 F Pulse Rate 100 H Pulse Rate [ 95 H Anterior Bilateral] Respiratory 14 Rate Respiratory 19 Rate [Anterior Bilateral] Blood Pressure Blood Pressure 138/68 [Right] O2 Sat by Pulse 97 Oximetry - Labs CBC & Chem 7: 12/16/21 03:54 12/16/21 03:54 Labs: Abnormal lab results 12/15/21 12/15/21 12/15/21 Range/Units 19:05 19:05 19:05 WBC (4.5-11.0) K/mm3 MCV (84-94) fl MCH (28-32) pg RDW (13.2-15.2) % Plt Count 88 L (140-440) K/mm3 APTT 105.5 H* (24.2-36.6) Sec. Heparin Anti-Xa Level 0.90 H (0.3-0.7) U.I./ml Carbon Dioxide (22-30) mmol/L BUN (9-20) mg/dL Creatinine (0.8-1.3) mg/dL Glucose (75-100) mg/dL POC Glucose (70-105) mg/dL 12/16/21 12/16/21 12/16/21 Range/Units 03:54 03:54 03:54 WBC 11.8 H (4.5-11.0) K/mm3 MCV 81 L (84-94) fl MCH 26 L (28-32) pg RDW 20.8 H (13.2-15.2) % Plt Count 82 L (140-440) K/mm3 APTT (24.2-36.6) Sec. Heparin Anti-Xa Level 0.82 H (0.3-0.7) U.I./ml Carbon Dioxide 16 L (22-30) mmol/L BUN 101 H (9-20) mg/dL Creatinine 3.7 H (0.8-1.3) mg/dL Glucose 386 H (75-100) mg/dL POC Glucose (70-105) mg/dL 12/16/21 12/16/21 12/16/21 Range/Units 05:24 12:22 16:02 WBC (4.5-11.0) K/mm3 MCV (84-94) fl MCH (28-32) pg RDW (13.2-15.2) % Plt Count (140-440) K/mm3 APTT (24.2-36.6) Sec. Heparin Anti-Xa Level (0.3-0.7) U.I./ml Carbon Dioxide (22-30) mmol/L BUN (9-20) mg/dL Creatinine (0.8-1.3) mg/dL Glucose (75-100) mg/dL POC Glucose 349 H 375 H 379 H (70-105) mg/dL HEART Score - HEART Score Troponin: Troponin T 0.062 ng/mL (0.00-0.029) H 12/13/21 22:49
--- NOTE | 2021-12-16 16:51 | Progress Note ---
Assessment and Plan Patient is a 66-year-old male with past medical history of CVA, diabetes was brought to the emergency room because of altered mental status. Patient is was sent from [facility] after he was noted to be unresponsive approximately 2 hours ago. Per nursing the patient is normally talkative. EMS was called and found the patient to be hypoxic to 88% on room air and patient was placed on a nonrebreather. The patient is currently unresponsive with eyes open Case discussed with tele-neurologist Dr. Ha-given last known well time of 09: 00 patient is not a tPA candidate. As patient is bedbound he is not a candidate for thrombectomy. CTA shows occlusion of right carotid artery however intracranially there is no occlusion seen Imaging studies including a CT of the head showed There is occlusion of the right common carotid artery from its origin which extends to involve the entire right internal carotid artery with minimal retrograde flow in the distal right ICA. 2. Small age-indeterminate right rice radiata white matter lacunar infarctions. No other occlusion or significant stenosis. Chest x-ray shows no acute pathology. 12/15/21: At this time we will discontinue heparin drip until patient is seen by vascular surgery. MRI still pending, unsure if patient actually had a CVA would not want this to expand with the current heparin drip ordered. Patient does not show persistent hypoxia or in any acute respiratory distress at this time although on 2 L of oxygen with good sustained saturation. We will obtain a VQ scan at this time. I will also obtain nephrology consultation due to acute on chronic CKD creatinine checked on November showed a creatinine of 2.3 although this is close to our recent time and not sure what his underlying baseline is. Continue seizure precautions. Will await for neurology input for possible EEG to rule out status epilepticus. Aspiration precautions 12/16: Mental status remains unchanged and this is why unable to complete MRI as we cannot complete the screening process. Seen by vascular and recommended to continue medical management until mental status improves. Plan to repeat CT brain tomorrow in the morning as we cannot do MRI. Renal function continued to get worse, continue IV fluid monitor blood glucose. Hold diuretics, nephrology following. Assessment and plan: (1) Acute metabolic encephalopathy Current Visit: Yes Status: Acute Plan to address problem: Admitted the patient to the medical telemetry. Acute metabolic encephalopathy secondary to CVA and MAURI. Aspirin 325 mg p.o. daily. Lipitor 40 mg p.o. daily. We do MRI of the brain and MRA of the brain and neck with and without contrast echocardiogram PT OT speech evaluation. Please consult neurology in the morning (2) MAURI (acute kidney injury) with vasomotor nephropathy on CKD stage III - creatinine worsening Current Visit: Yes Status: Acute Plan to address problem: Avoid nephrotoxic drug. Renally dose medication. Normal saline at the rate of 100 cc/h. BMP in the morning (3) Diabetes Current Visit: Yes Status: Acute Plan to address problem: Accu-Chek every 6 hours with Humalog low-dose coverage. Diabetic education (4) Lactic acidosis Current Visit: Yes Status: Acute Plan to address problem: Rocephin 2 g IV daily. Normal saline 100 mL/h. We will repeat the lactic acid. (5) Pleural effusion Current Visit: Yes Status: Acute Plan to address problem: Oxygen via nasal cannula 3 L/min. DuoNeb via nebulizer every 4 hours. Albuterol via nebulizer every 4 hours as needed. We will monitor the patient closely. If needed will consult pulmonary (6) tonic-clonic seizure (7) systemic inflammatory response syndrome secondary to seizures (8) hypoxic respiratory failure on admission (9) DVT prophylaxis Current Visit: Yes Status: Acute Plan to address problem: Heparin 5000 units subcu every 12 hours for DVT prophylaxis. Pepcid 20 mg IV every 12 hours for GI prophylaxis. Patient is a full code Subjective Date of service: 12/16/21 Interval history: Patient seen and examined. Medical records and medication list reviewed. No acute event overnight noted by the RN. Unable to complete MRI, patient remains confused Objective - Exam Narrative Exam: General appearance: Present: no acute distress, well-nourished, confused - EENT Eyes: Present: PERRL ENT: hearing intact, clear oral mucosa - Neck Neck: Present: supple, normal ROM - Respiratory Respiratory effort: normal Respiratory: bilateral: CTA - Cardiovascular Heart Sounds: Present: S1 & S2. Absent: rub, click - Extremities Extremities: pulses symmetrical, No edema Peripheral Pulses: within normal limits - Abdominal General gastrointestinal: Present: soft, non-tender, non-distended, normal bowel sounds Male genitourinary: Present: normal - Integumentary Integumentary: Present: clear, warm, dry - Musculoskeletal Musculoskeletal: Motor strength unable to fully examine. There is no flaccidity appreciated of bilateral upper extremity. - Psychiatric Psychiatric: Unable to assess - Neurologic Neurologic: Confused - Constitutional Vitals: Vital Signs - 12hr 12/16/21 12/16/21 12/16/21 07:41 10:00 12:19 Temperature 99.6 F 98.7 F Pulse Rate 104 H 102 H Pulse Rate [ Anterior Bilateral] Respiratory 16 14 Rate Respiratory Rate [Anterior Bilateral] Blood Pressure 132/75 Blood Pressure 114/74 [Right] O2 Sat by Pulse 94 96 96 Oximetry 12/16/21 12/16/21 14:00 16:16 Temperature 99.2 F Pulse Rate 100 H Pulse Rate [ 95 H Anterior Bilateral] Respiratory 14 Rate Respiratory 19 Rate [Anterior Bilateral] Blood Pressure Blood Pressure 138/68 [Right] O2 Sat by Pulse 97 Oximetry - Labs CBC & Chem 7: 12/16/21 03:54 12/16/21 03:54 Labs: Abnormal lab results 12/15/21 12/15/21 12/15/21 Range/Units 19:05 19:05 19:05 WBC (4.5-11.0) K/mm3 MCV (84-94) fl MCH (28-32) pg RDW (13.2-15.2) % Plt Count 88 L (140-440) K/mm3 APTT 105.5 H* (24.2-36.6) Sec. Heparin Anti-Xa Level 0.90 H (0.3-0.7) U.I./ml Carbon Dioxide (22-30) mmol/L BUN (9-20) mg/dL Creatinine (0.8-1.3) mg/dL Glucose (75-100) mg/dL POC Glucose (70-105) mg/dL 12/16/21 12/16/21 12/16/21 Range/Units 03:54 03:54 03:54 WBC 11.8 H (4.5-11.0) K/mm3 MCV 81 L (84-94) fl MCH 26 L (28-32) pg RDW 20.8 H (13.2-15.2) % Plt Count 82 L (140-440) K/mm3 APTT (24.2-36.6) Sec. Heparin Anti-Xa Level 0.82 H (0.3-0.7) U.I./ml Carbon Dioxide 16 L (22-30) mmol/L BUN 101 H (9-20) mg/dL Creatinine 3.7 H (0.8-1.3) mg/dL Glucose 386 H (75-100) mg/dL POC Glucose (70-105) mg/dL 12/16/21 12/16/21 12/16/21 Range/Units 05:24 12:22 16:02 WBC (4.5-11.0) K/mm3 MCV (84-94) fl MCH (28-32) pg RDW (13.2-15.2) % Plt Count (140-440) K/mm3 APTT (24.2-36.6) Sec. Heparin Anti-Xa Level (0.3-0.7) U.I./ml Carbon Dioxide (22-30) mmol/L BUN (9-20) mg/dL Creatinine (0.8-1.3) mg/dL Glucose (75-100) mg/dL POC Glucose 349 H 375 H 379 H (70-105) mg/dL HEART Score - HEART Score Troponin: Troponin T 0.062 ng/mL (0.00-0.029) H 12/13/21 22:49
[2021-12-17] MEDS: INSULIN LISPRO 100 UNIT/ML SUB-Q SCH ×4 (00:32→18:01)
[2021-12-17] MEDS: cefTRIAXone/NS 2 GM/100 ML 2 GM/100 ML BAG IV SCH (01:21)
[2021-12-17] MEDS: IPRATROPIUM/ALBUTEROL SULFATE 3 ML AMPUL.NEB IH SCH ×4 (03:21→21:21)
[2021-12-17 04:51] LABS: Hematocrit 36.6 % (35.5-45.6); Hemoglobin 11.3 gm/dl (11.8-15.2)
[2021-12-17 05:04] LABS: Calcium 8.8 mg/dL (8.4-10.2)
[2021-12-17] MEDS: HEPARIN 5,000 UNIT/1 ML VIAL SUB-Q SCH ×3 (06:57→22:15)
--- NOTE | 2021-12-17 08:19 | Progress Note ---
Subjective Interval history: Assessment and plan #Worsening renal failure in a patient with baseline creatinine was around one 2.3 on December 09, 2021, current creatinine is 4.2, mild acidosis, bicarbonate around 21,Intake and output has not been documented accurately and hence will suggest to do so, Most likely etiology of his renal failure appears to be due to radiocontrast exposure, hypoxemia, respiratory failure which likely resulted in acute tubular necrosis, Radiocontrast had to be administered to appropriately diagnose and treat patient's condition There is no emergent indication for renal replacement therapy today however this cannot be completely excluded as a possibility if his renal function continues not to improve #Admitted with mild hyponatremia, lactic acidosis: Appears to be improving #Renal ultrasonogram showed bilateral echogenic kidneys with baseline creatinine of 2.3 noted, Will discussed with patient's nurse to monitor intake and output closely, will need to weigh the diapers, to appropriately adjust his fluids, will also need to reach out to the family about further renal care plan, if dialysis is needed, #Multiple other severe health issues, including but not limited to renal failure If there are any renal related issues in regards to this patient please feel free to reach out without any hesitation at [phone] We'll continue to follow and make recommendation for renal standpoint. Progress note by: Jayjay Roger MD [address] [place] [id number] Tele [phone] [email or web address] Patient was seen today for follow-up of multiple renal related issues Noted to have worsening renal failure, Interdisciplinary notes that also reviewed Events of 24 hours vitals labs intake output medications were reviewed Past medical history: Reviewed Family history: Reviewed Social history: Reviewed Allergies: Reviewed Physical examination: Vitals: Reviewed HEENT: No pallor or icterus oral mucosa moist Neck: Supple no JVD no thyromegaly Chest: Bilateral clear to auscultation anteriorly Heart: Regular rate and rhythm S1-S2 heard no S3-S4 Abdomen: Soft nontender no voluntary guarding rigidity rebound Extremity: Dry skin less than 1+ peripheral edema Psychiatric: No evidence of agitation and aggression noted Dermatology: No petechial rashes Labs and x-rays: Reviewed from today Objective - Vital Signs Vital signs: Vital Signs - 12hr 12/16/21 12/16/21 12/16/21 22:00 22:42 23:36 Temperature 97.6 F Pulse Rate 86 89 Pulse Rate [ Anterior Bilateral] Respiratory 16 Rate Respiratory Rate [Anterior Bilateral] Blood Pressure 112/61 125/67 O2 Sat by Pulse 98 97 Oximetry 12/17/21 12/17/21 12/17/21 02:00 03:40 04:00 Temperature 98.1 F Pulse Rate 82 85 Pulse Rate [ 88 Anterior Bilateral] Respiratory 19 Rate Respiratory 16 Rate [Anterior Bilateral] Blood Pressure 109/59 O2 Sat by Pulse 96 Oximetry 12/17/21 07:49 Temperature 96.8 F L Pulse Rate 81 Pulse Rate [ Anterior Bilateral] Respiratory 14 Rate Respiratory Rate [Anterior Bilateral] Blood Pressure 142/75 O2 Sat by Pulse 99 Oximetry - Lab 12/17/21 04:22 12/17/21 04:22 Most recent lab results Calcium 8.8 mg/dL (8.4-10.2) 12/17/21 04:22 Magnesium 2.30 mg/dL (1.7-2.3) 12/13/21 22:49 Medications & Allergies - Medications Allergies/Adverse Reactions: Allergies No Known Allergies Allergy (Verified 12/09/21 12:16) Home Medications: Home Medications Medication Instructions Recorded Confirmed Last Taken Type cephALEXin [Keflex] 500 mg PO Q6HR 7 Days #28 capsule 12/09/21 12/14/21 Unknown Rx Aspirin [[place] Aspirin EC] 81 mg PO QDAY 12/14/21 12/14/21 Unknown History Atorvastatin [Lipitor Tab] 80 mg PO QHS 12/14/21 12/14/21 Unknown History Dapagliflozin Propanediol [Farxiga] 10 mg PO QDAY 12/14/21 12/14/21 Unknown History Insulin Detemir [Levemir VIAL] 25 unit SQ QHS 12/14/21 12/14/21 Unknown History Insulin Lispro [Admelog] 100 unit SQ ACHS 12/14/21 12/14/21 Unknown History Sertraline [Zoloft] 100 mg PO QDAY 12/14/21 12/14/21 Unknown History Tamsulosin [Flomax] 0.4 mg PO QDAY 12/14/21 12/14/21 Unknown History Torsemide [Demadex] 20 mg PO QDAY 12/14/21 12/14/21 Unknown History carvediloL [Coreg] 3.125 mg PO BID 12/14/21 12/14/21 Unknown History Active Medications: Generic Name Dose Route Start Last Admin Trade Name Freq PRN Reason Stop Dose Admin Acetaminophen 650 mg 12/14/21 00:30 12/16/21 16:04 Acetaminophen 325 Mg Tab PO 650 mg Q4H PRN Administration Pain MILD(1-3)/Fever >100.5/ROGERS Albuterol 2.5 mg 12/14/21 00:30 Albuterol 2.5 Mg/3 Ml Nebu IH Q3HRT PRN Shortness Of Breath Albuterol/Ipratropium 1 ampul 12/14/21 02:00 12/17/21 03:21 Ipratropium/Albuterol Sulfate 3 Ml Ampul.Neb IH 1 ampul Q6HRT ALEXSANDRA Administration Ascorbic Acid 500 mg 12/14/21 10:00 12/16/21 22:42 Ascorbic Acid 500 Mg Tab PO 500 mg BID ALEXSANDRA Administration Aspirin 81 mg 12/14/21 10:00 12/16/21 11:09 Aspirin Ec 81 Mg Tab PO 81 mg QDAY ALEXSANDRA Administration Atorvastatin Calcium 80 mg 12/14/21 22:00 12/16/21 22:41 Atorvastatin 40 Mg Tab PO 80 mg QHS ALEXSANDRA Administration Carvedilol 3.125 mg 12/14/21 10:00 12/16/21 22:42 Carvedilol 3.125 Mg Tab PO 3.125 mg BID ALEXSANDRA Administration Cholecalciferol 1,000 unit 12/16/21 14:00 12/16/21 15:06 Cholecalciferol (Vit D3) 1000 Unit (25 Mcg) Tab PO 1,000 unit DAILY ALEXSANDRA Administration Clopidogrel Bisulfate 75 mg 12/17/21 10:00 Clopidogrel 75 Mg Tab PO QDAY ALEXSANDRA Dextrose 50 ml 12/14/21 00:30 Dextrose 50% In Water (25gm) 50 Ml Syringe IV Q30MIN PRN Hypoglycemia Protocol Famotidine 20 mg 12/17/21 10:00 Famotidine 20 Mg Tab PO DAILY [facility] Heparin Sodium (Porcine) 5,000 unit 12/16/21 14:00 12/17/21 06:57 Heparin 5,000 Unit/1 Ml Vial SUB-Q 5,000 unit Q8HR ALEXSANDRA Administration Ceftriaxone Sodium 2 gm in 100 mls @ 200 mls/hr 12/14/21 01:00 12/17/21 01:21 Rocephin/Ns 2 Gm/100 Ml IV 12/19/21 00:59 200 mls/hr Q24H ALEXSANDRA Administration Protocol Sodium Chloride 1,000 mls @ 100 mls/hr 12/16/21 17:00 12/16/21 22:56 Nacl 0.9% 1000 Ml IV 100 mls/hr DIRECT ALEXSANDRA Administration Insulin Human Lispro 0 unit 12/14/21 06:00 12/17/21 06:51 Insulin Lispro 100 Unit/Ml SUB-Q 4 unit Q6HR ALEXSANDRA Administration Protocol Labetalol HCl 10 mg 12/14/21 00:30 Labetalol 20 Mg/4 Ml Inj IV Q5MIN PRN to maintain SBP < 180 Morphine Sulfate 2 mg 12/14/21 00:30 Morphine 2 Mg/1 Ml Inj IV Q4H PRN Pain, Moderate (4-6) Morphine Sulfate 4 mg 12/14/21 00:30 Morphine 4 Mg/1 Ml Inj IV Q4H PRN Pain , Severe (7-10) Ondansetron HCl 4 mg 12/14/21 00:30 Ondansetron 4 Mg/2 Ml Inj IV Q8H PRN Nausea And Vomiting Sertraline HCl 100 mg 12/14/21 10:00 12/16/21 11:07 Sertraline 100 Mg Tab PO 100 mg QDAY ALEXSANDRA Administration Sodium Chloride 10 ml 12/14/21 10:00 12/16/21 22:42 Sodium Chloride 0.9% 10 Ml Flush Syringe IV 10 ml BID ALEXSANDRA Administration Sodium Chloride 10 ml 12/14/21 00:30 Sodium Chloride 0.9% 10 Ml Flush Syringe IV PRN PRN LINE FLUSH Tamsulosin HCl 0.4 mg 12/14/21 10:00 12/16/21 16:09 Tamsulosin 0.4 Mg Cap PO 0.4 mg QDAY ALEXSANDRA Administration Zinc Sulfate 220 mg 12/14/21 10:00 12/16/21 22:41 Zinc Sulfate 220 Mg Cap PO 220 mg BID ALEXSANDRA Administration
[2021-12-17] MEDS: INSULIN NPH/REGULAR 70/30 INJ SUB-Q SCH ×2 (10:55→18:02)
[2021-12-17] MEDS: CLOPIDOGREL 75 MG TAB PO SCH (10:56)
[2021-12-17] MEDS: ASCORBIC ACID 500 MG TAB PO SCH ×2 (10:56→22:15)
[2021-12-17] MEDS: SERTRALINE 100 MG TAB PO SCH (10:56)
[2021-12-17] MEDS: carvediloL 3.125 MG TAB PO SCH ×2 (10:56→22:15)
[2021-12-17] MEDS: TAMSULOSIN 0.4 MG CAP PO SCH (10:56)
[2021-12-17] MEDS: CHOLECALCIFEROL (VIT D3) 1000 UNIT (25 mcg) TAB PO SCH (10:56)
[2021-12-17] MEDS: FAMOTIDINE 20 MG TAB PO SCH (10:56)
[2021-12-17] MEDS: ASPIRIN EC 81 MG TAB PO SCH (10:56)
[2021-12-17] MEDS: ZINC SULFATE 220 MG CAP PO SCH ×2 (10:57→22:15)
--- NOTE | 2021-12-17 11:17 | Cat Scan Report ---
CT head/brain wo con INDICATION / CLINICAL INFORMATION: 66 years Male; cva. TECHNIQUE: Routine CT head without contrast. All CT scans at this location are performed using CT dos e reduction for ALARA by means of automated exposure control. COMPARISON: 12/13/2021 FINDINGS: BRAIN / INTRACRANIAL CONTENTS: Small lacunar infarcts seen in the gangliocapsular regions, as well as the periventricular and deep white matter of the cerebral hemispheres-right greater than left. Small branch PICA infarcts suggested on the right. Similar type findings seen on prior. It might be diffic ult to evaluate for small areas of ischemia without diffusion imaging by MRI. Otherwise, no acute hemorrhage, mass effect, midline shift, hydrocephalus, or acute, large territori al infarct. [id number], diffuse cerebral and cerebellar atrophy. There are [id number] areas of decreased attenuation in the white matter of the cerebral hemisph eres, as well as the gangliocapsular regions. These are nonspecific findings and may be related to mi croangiopathy (hypertension, diabetes, atherosclerosis), given the patient's age. It might be difficu lt to evaluate for small areas of ischemia without diffusion imaging by MRI. Pontine disease suspecte d. CRANIOCERVICAL JUNCTION: No significant abnormality. ORBITS: No significant abnormality of visualized orbits. SINUSES / MASTOIDS: Visualized paranasal sinuses and mastoid air cells are essentially clear. ADDITIONAL FINDINGS: Minimal atherosclerotic disease is seen in the anterior circulation. IMPRESSION: 1. No focal mass, hemorrhage, hydrocephalus, or acute, large territorial infarct. Follow-up with diff usion imaging by MRI, as clinically warranted. Signer Name: Jose A Kohler MD, III Signed: 12/17/2021 11:13 AM Workstation Name: [id number]
[2021-12-17] MEDS ORDERED: SODIUM BICARBONATE 325 MG TAB FEEDTUBE PRN (11:46)
[2021-12-17] MEDS ORDERED: SIMPLE SYRUP 15 ML FEEDTUBE PRN ×2 (11:46)
[2021-12-17] MEDS ORDERED: LIPASE 10,500/PROTEASE 25,000/AMYLASE 43,750 (UNITS) DR CAP FEEDTUBE PRN (11:46)
[2021-12-17] MEDS: SODIUM CHLORIDE 0.9% 1000 ML 1,000 ML IV SCH (14:41)
--- NOTE | 2021-12-17 15:14 | Progress Note ---
Assessment and Plan Patient is a 66-year-old male with past medical history of CVA, diabetes was brought to the emergency room because of altered mental status. Patient is was sent from [facility] after he was noted to be unresponsive approximately 2 hours ago. Per nursing the patient is normally talkative. EMS was called and found the patient to be hypoxic to 88% on room air and patient was placed on a nonrebreather. The patient is currently unresponsive with eyes open Case discussed with tele-neurologist Dr. Ha-given last known well time of 09: 00 patient is not a tPA candidate. As patient is bedbound he is not a candidate for thrombectomy. CTA shows occlusion of right carotid artery however intracranially there is no occlusion seen Imaging studies including a CT of the head showed There is occlusion of the right common carotid artery from its origin which extends to involve the entire right internal carotid artery with minimal retrograde flow in the distal right ICA. 2. Small age-indeterminate right rice radiata white matter lacunar infarctions. No other occlusion or significant stenosis. Chest x-ray shows no acute pathology. 12/15/21: At this time we will discontinue heparin drip until patient is seen by vascular surgery. MRI still pending, unsure if patient actually had a CVA would not want this to expand with the current heparin drip ordered. Patient does not show persistent hypoxia or in any acute respiratory distress at this time although on 2 L of oxygen with good sustained saturation. We will obtain a VQ scan at this time. I will also obtain nephrology consultation due to acute on chronic CKD creatinine checked on November showed a creatinine of 2.3 although this is close to our recent time and not sure what his underlying baseline is. Continue seizure precautions. Will await for neurology input for possible EEG to rule out status epilepticus. Aspiration precautions 12/16: Mental status remains unchanged and this is why unable to complete MRI as we cannot complete the screening process. Seen by vascular and recommended to continue medical management until mental status improves. Plan to repeat CT brain tomorrow in the morning as we cannot do MRI. Renal function continued to get worse, continue IV fluid monitor blood glucose. Hold diuretics, nephrology following. 12/17: Worsening renal failure with current creatinine is 4.2, mild acidosis, bicarbonate around 21. Initiate on TF, monitor ins/os. Most likely etiology of his renal failure appears to be due to radiocontrast exposure, hypoxemia, respiratory failure which likely resulted in acute tubular necrosis. cont to follow BMP, nephrology following Assessment and plan: (1) Acute metabolic encephalopathy Current Visit: Yes Status: Acute Plan to address problem: Admitted the patient to the medical telemetry. Acute metabolic encephalopathy secondary to CVA and MAURI. Aspirin 325 mg p.o. daily. Lipitor 40 mg p.o. daily. We do MRI of the brain and MRA of the brain and neck with and without contrast echocardiogram PT OT speech evaluation. Please consult neurology in the morning (2) MAURI (acute kidney injury) with vasomotor nephropathy on CKD stage III - creatinine worsening Current Visit: Yes Status: Acute Plan to address problem: Avoid nephrotoxic drug. Renally dose medication. Normal saline at the rate of 100 cc/h. BMP in the morning (3) Diabetes Current Visit: Yes Status: Acute Plan to address problem: Accu-Chek every 6 hours with Humalog low-dose coverage. Diabetic education (4) Lactic acidosis Current Visit: Yes Status: Acute Plan to address problem: Rocephin 2 g IV daily. Normal saline 100 mL/h. We will repeat the lactic acid. (5) Pleural effusion Current Visit: Yes Status: Acute Plan to address problem: Oxygen via nasal cannula 3 L/min. DuoNeb via nebulizer every 4 hours. Albuterol via nebulizer every 4 hours as needed. We will monitor the patient closely. If needed will consult pulmonary (6) tonic-clonic seizure (7) systemic inflammatory response syndrome secondary to seizures (8) hypoxic respiratory failure on admission (9) DVT prophylaxis Current Visit: Yes Status: Acute Plan to address problem: Heparin 5000 units subcu every 12 hours for DVT prophylaxis. Pepcid 20 mg IV every 12 hours for GI prophylaxis. Patient is a full code Subjective Date of service: 12/17/21 Interval history: Patient seen and examined. Medical records and medication list reviewed. No acute event overnight noted by the RN. Unable to complete MRI, patient remains confused Cr cont to trend up Objective - Exam Narrative Exam: General appearance: Present: no acute distress, well-nourished, confused - EENT Eyes: Present: PERRL ENT: hearing intact, clear oral mucosa - Neck Neck: Present: supple, normal ROM - Respiratory Respiratory effort: normal Respiratory: bilateral: CTA - Cardiovascular Heart Sounds: Present: S1 & S2. Absent: rub, click - Extremities Extremities: pulses symmetrical, No edema Peripheral Pulses: within normal limits - Abdominal General gastrointestinal: Present: soft, non-tender, non-distended, normal bowel sounds Male genitourinary: Present: normal - Integumentary Integumentary: Present: clear, warm, dry - Musculoskeletal Musculoskeletal: Motor strength unable to fully examine. There is no flaccidity appreciated of bilateral upper extremity. - Psychiatric Psychiatric: Unable to assess - Neurologic Neurologic: Confused - Constitutional Vitals: Vital Signs - 12hr 12/17/21 12/17/21 12/17/21 03:40 04:00 07:49 Temperature 98.1 F 96.8 F L Pulse Rate 82 85 81 Pulse Rate [ Anterior Bilateral] Respiratory 19 14 Rate Respiratory Rate [Anterior Bilateral] Blood Pressure 109/59 142/75 O2 Sat by Pulse 96 99 Oximetry 12/17/21 12/17/21 12/17/21 09:35 10:00 11:13 Temperature 96.9 F L Pulse Rate 84 Pulse Rate [ 80 Anterior Bilateral] Respiratory 15 Rate Respiratory 18 Rate [Anterior Bilateral] Blood Pressure 155/72 O2 Sat by Pulse 98 98 Oximetry 12/17/21 12/17/21 12:00 15:04 Temperature Pulse Rate 86 Pulse Rate [ 66 Anterior Bilateral] Respiratory Rate Respiratory 18 Rate [Anterior Bilateral] Blood Pressure O2 Sat by Pulse Oximetry - Labs CBC & Chem 7: 12/17/21 04:22 12/17/21 04:22 Labs: Abnormal lab results 12/16/21 12/16/21 12/16/21 Range/Units 16:02 17:35 23:38 Hgb (11.8-15.2) gm/dl Plt Count (140-440) K/mm3 Carbon Dioxide (22-30) mmol/L BUN (9-20) mg/dL Creatinine (0.8-1.3) mg/dL Glucose (75-100) mg/dL POC Glucose 379 H 341 H (70-105) mg/dL Hemoglobin A1c 7.6 H (4-6) % 12/17/21 12/17/21 12/17/21 Range/Units 04:22 04:22 05:48 Hgb 11.3 L (11.8-15.2) gm/dl Plt Count 72 L (140-440) K/mm3 Carbon Dioxide 21 L (22-30) mmol/L BUN 122 H (9-20) mg/dL Creatinine 4.2 H (0.8-1.3) mg/dL Glucose 321 H (75-100) mg/dL POC Glucose 307 H (70-105) mg/dL Hemoglobin A1c (4-6) % 12/17/21 Range/Units 11:28 Hgb (11.8-15.2) gm/dl Plt Count (140-440) K/mm3 Carbon Dioxide (22-30) mmol/L BUN (9-20) mg/dL Creatinine (0.8-1.3) mg/dL Glucose (75-100) mg/dL POC Glucose 259 H (70-105) mg/dL Hemoglobin A1c (4-6) % HEART Score - HEART Score Troponin: Troponin T 0.062 ng/mL (0.00-0.029) H 12/13/21 22:49
[2021-12-18] MEDS: INSULIN LISPRO 100 UNIT/ML SUB-Q SCH ×5 (00:23→18:51)
[2021-12-18] MEDS: cefTRIAXone/NS 2 GM/100 ML 2 GM/100 ML BAG IV SCH (01:54)
[2021-12-18] MEDS: IPRATROPIUM/ALBUTEROL SULFATE 3 ML AMPUL.NEB IH SCH (02:29)
[2021-12-18 06:21] LABS: Calcium 8.8 mg/dL (8.4-10.2)
[2021-12-18] MEDS: HEPARIN 5,000 UNIT/1 ML VIAL SUB-Q SCH ×3 (06:32→21:09)
[2021-12-18] MEDS: SERTRALINE 100 MG TAB PO SCH (10:07)
[2021-12-18] MEDS: FAMOTIDINE 20 MG TAB PO SCH (10:07)
[2021-12-18] MEDS: TAMSULOSIN 0.4 MG CAP PO SCH (10:07)
[2021-12-18] MEDS: CLOPIDOGREL 75 MG TAB PO SCH (10:08)
[2021-12-18] MEDS: INSULIN NPH/REGULAR 70/30 INJ SUB-Q SCH ×2 (10:08→18:51)
[2021-12-18] MEDS: CHOLECALCIFEROL (VIT D3) 1000 UNIT (25 mcg) TAB PO SCH (10:08)
[2021-12-18] MEDS: ASCORBIC ACID 500 MG TAB PO SCH ×2 (10:08→21:08)
[2021-12-18] MEDS: ZINC SULFATE 220 MG CAP PO SCH ×2 (10:08→21:12)
[2021-12-18] MEDS: carvediloL 3.125 MG TAB PO SCH ×2 (10:08→21:08)
[2021-12-18] MEDS: ASPIRIN EC 81 MG TAB PO SCH (10:08)
--- NOTE | 2021-12-18 12:42 | Progress Note ---
Assessment and Plan lam draining clear lethargic cant turn for basim rec home with cath out pt f/u Subjective Date of service: 12/18/21 Objective - Constitutional Vitals: Vital Signs - 12hr 12/18/21 12/18/21 12/18/21 02:00 04:00 07:38 Temperature 97.6 F Pulse Rate 92 H 105 H Pulse Rate [ 85 Anterior Bilateral] Respiratory 20 Rate Respiratory 15 Rate [Anterior Bilateral] Blood Pressure 116/64 O2 Sat by Pulse 94 Oximetry 12/18/21 10:00 Temperature Pulse Rate Pulse Rate [ Anterior Bilateral] Respiratory Rate Respiratory Rate [Anterior Bilateral] Blood Pressure O2 Sat by Pulse 98 Oximetry General appearance: Present: no acute distress, disheveled - Neck Neck: supple - Respiratory Respiratory effort: normal Extremities: no ischemia - Gastrointestinal General gastrointestinal: Present: soft, non-tender - Genitourinary Male genitourinary: symmetrical - Labs CBC & Chem 7: 12/17/21 04:22 12/18/21 05:30 Labs: Abnormal lab results 12/17/21 12/18/21 12/18/21 Range/Units 17:19 00:42 05:24 Sodium (137-145) mmol/L Chloride (98-107) mmol/L Carbon Dioxide (22-30) mmol/L BUN (9-20) mg/dL Creatinine (0.8-1.3) mg/dL Glucose (75-100) mg/dL POC Glucose 197 H 191 H 289 H (70-105) mg/dL 12/18/21 12/18/21 Range/Units 05:30 12:02 Sodium 152 H D (137-145) mmol/L Chloride 114.1 H (98-107) mmol/L Carbon Dioxide 21 L (22-30) mmol/L BUN 115 H (9-20) mg/dL Creatinine 3.6 H (0.8-1.3) mg/dL Glucose 294 H (75-100) mg/dL POC Glucose 316 H (70-105) mg/dL Medications & Allergies - Medications Allergies/Adverse Reactions: Allergies No Known Allergies Allergy (Verified 12/09/21 12:16) Home Medications: Home Medications Medication Instructions Recorded Confirmed Last Taken Type cephALEXin [Keflex] 500 mg PO Q6HR 7 Days #28 capsule 12/09/21 12/14/21 Unknown Rx Aspirin [[place] Aspirin EC] 81 mg PO QDAY 12/14/21 12/14/21 Unknown History Atorvastatin [Lipitor Tab] 80 mg PO QHS 12/14/21 12/14/21 Unknown History Dapagliflozin Propanediol [Farxiga] 10 mg PO QDAY 12/14/21 12/14/21 Unknown History Insulin Detemir [Levemir VIAL] 25 unit SQ QHS 12/14/21 12/14/21 Unknown History Insulin Lispro [Admelog] 100 unit SQ ACHS 12/14/21 12/14/21 Unknown History Sertraline [Zoloft] 100 mg PO QDAY 12/14/21 12/14/21 Unknown History Tamsulosin [Flomax] 0.4 mg PO QDAY 12/14/21 12/14/21 Unknown History Torsemide [Demadex] 20 mg PO QDAY 12/14/21 12/14/21 Unknown History carvediloL [Coreg] 3.125 mg PO BID 12/14/21 12/14/21 Unknown History Active Medications: Generic Name Dose Route Start Last Admin Trade Name Freq PRN Reason Stop Dose Admin Acetaminophen 650 mg 12/14/21 00:30 12/16/21 16:04 Acetaminophen 325 Mg Tab PO 650 mg Q4H PRN Administration Pain MILD(1-3)/Fever >100.5/ROGERS Albuterol 2.5 mg 12/14/21 00:30 Albuterol 2.5 Mg/3 Ml Nebu IH Q3HRT PRN Shortness Of Breath Lipase/Protease/Amylase 1 each 12/17/21 11:46 Lipase 10,500/Protease 25,000/Amylase 43,750 (Units) Dr Mariee FEEDTMIGUEL PRN PRN For Clogged Feeding Tube Ascorbic Acid 500 mg 12/14/21 10:00 12/18/21 10:08 Ascorbic Acid 500 Mg Tab PO 500 mg BID ALEXSANDRA Administration Aspirin 81 mg 12/14/21 10:00 12/18/21 10:08 Aspirin Ec 81 Mg Tab PO 81 mg QDAY ALEXSANDRA Administration Atorvastatin Calcium 80 mg 12/14/21 22:00 12/17/21 22:15 Atorvastatin 40 Mg Tab PO 80 mg QHS ALEXSANDRA Administration Carvedilol 3.125 mg 12/14/21 10:00 12/18/21 10:08 Carvedilol 3.125 Mg Tab PO 3.125 mg BID ALEXSANDRA Administration Cholecalciferol 1,000 unit 12/16/21 14:00 12/18/21 10:08 Cholecalciferol (Vit D3) 1000 Unit (25 Mcg) Tab PO 1,000 unit DAILY ALEXSANDRA Administration Clopidogrel Bisulfate 75 mg 12/17/21 10:00 12/18/21 10:08 Clopidogrel 75 Mg Tab PO 75 mg QDAY ALEXSANDRA Administration Dextrose 50 ml 12/14/21 00:30 Dextrose 50% In Water (25gm) 50 Ml Syringe IV Q30MIN PRN Hypoglycemia Protocol Famotidine 20 mg 12/17/21 10:00 12/18/21 10:07 Famotidine 20 Mg Tab PO 20 mg DAILY ALEXSANDRA Administration Heparin Sodium (Porcine) 5,000 unit 12/16/21 14:00 12/18/21 06:32 Heparin 5,000 Unit/1 Ml Vial SUB-Q 5,000 unit Q8HR ALEXSANDRA Administration Ceftriaxone Sodium 2 gm in 100 mls @ 200 mls/hr 12/14/21 01:00 12/18/21 01:54 Rocephin/Ns 2 Gm/100 Ml IV 12/19/21 00:59 200 mls/hr Q24H ALEXSANDRA Administration Protocol Sodium Chloride 1,000 mls @ 75 mls/hr 12/18/21 09:00 Nacl 0.45% 1000 Ml IV DIRECT ALEXSANDRA Insulin Human Isoph/Insulin Regular 10 unit 12/17/21 10:00 12/18/21 10:08 Insulin Nph/Regular 70/30 Inj SUB-Q 10 unit BIDDIAB ALEXSANDRA Administration Insulin Human Lispro 0 unit 12/14/21 06:00 12/18/21 12:15 Insulin Lispro 100 Unit/Ml SUB-Q 4 unit Q6HR ALEXSANDRA Administration Protocol Labetalol HCl 10 mg 12/14/21 00:30 Labetalol 20 Mg/4 Ml Inj IV Q5MIN PRN to maintain SBP < 180 Morphine Sulfate 2 mg 12/14/21 00:30 Morphine 2 Mg/1 Ml Inj IV Q4H PRN Pain, Moderate (4-6) Morphine Sulfate 4 mg 12/14/21 00:30 Morphine 4 Mg/1 Ml Inj IV Q4H PRN Pain , Severe (7-10) Ondansetron HCl 4 mg 12/14/21 00:30 Ondansetron 4 Mg/2 Ml Inj IV Q8H PRN Nausea And Vomiting Sertraline HCl 100 mg 12/14/21 10:00 12/18/21 10:07 Sertraline 100 Mg Tab PO 100 mg QDAY ALEXSANDRA Administration Simple Syrup 15 ml 12/17/21 11:46 Simple Syrup 15 Ml FEEDTUBE PRN PRN Hypoglycemia Simple Syrup 30 ml 12/17/21 11:46 Simple Syrup 15 Ml FEEDTUBE PRN PRN Hypoglycemia Sodium Bicarbonate 325 mg 12/17/21 11:46 Sodium Bicarbonate 325 Mg Tab FEEDTUBE PRN PRN For Clogged Feeding Tube Sodium Chloride 10 ml 12/14/21 10:00 12/18/21 10:09 Sodium Chloride 0.9% 10 Ml Flush Syringe IV 10 ml BID ALEXSANDRA Administration Sodium Chloride 10 ml 12/14/21 00:30 Sodium Chloride 0.9% 10 Ml Flush Syringe IV PRN PRN LINE FLUSH Tamsulosin HCl 0.4 mg 12/14/21 10:00 12/18/21 10:07 Tamsulosin 0.4 Mg Cap PO 0.4 mg QDAY ALEXSANDRA Administration Zinc Sulfate 220 mg 12/14/21 10:00 12/18/21 10:08 Zinc Sulfate 220 Mg Cap PO 220 mg BID ALEXSANDRA Administration HEART Score - HEART Score Troponin: Troponin T 0.062 ng/mL (0.00-0.029) H 12/13/21 22:49
--- NOTE | 2021-12-18 13:14 | Progress Note ---
Assessment and Plan Patient is a 66-year-old male with past medical history of CVA, diabetes was brought to the emergency room because of altered mental status. Patient is was sent from [facility] after he was noted to be unresponsive approximately 2 hours ago. Per nursing the patient is normally talkative. EMS was called and found the patient to be hypoxic to 88% on room air and patient was placed on a nonrebreather. The patient is currently unresponsive with eyes open Case discussed with tele-neurologist Dr. aH-given last known well time of 09: 00 patient is not a tPA candidate. As patient is bedbound he is not a candidate for thrombectomy. CTA shows occlusion of right carotid artery however intracranially there is no occlusion seen Imaging studies including a CT of the head showed There is occlusion of the right common carotid artery from its origin which extends to involve the entire right internal carotid artery with minimal retrograde flow in the distal right ICA. 2. Small age-indeterminate right rice radiata white matter lacunar infarctions. No other occlusion or significant stenosis. Chest x-ray shows no acute pathology. 12/15/21: At this time we will discontinue heparin drip until patient is seen by vascular surgery. MRI still pending, unsure if patient actually had a CVA would not want this to expand with the current heparin drip ordered. Patient does not show persistent hypoxia or in any acute respiratory distress at this time although on 2 L of oxygen with good sustained saturation. We will obtain a VQ scan at this time. I will also obtain nephrology consultation due to acute on chronic CKD creatinine checked on November showed a creatinine of 2.3 although this is close to our recent time and not sure what his underlying baseline is. Continue seizure precautions. Will await for neurology input for possible EEG to rule out status epilepticus. Aspiration precautions 12/16: Mental status remains unchanged and this is why unable to complete MRI as we cannot complete the screening process. Seen by vascular and recommended to continue medical management until mental status improves. Plan to repeat CT brain tomorrow in the morning as we cannot do MRI. Renal function continued to get worse, continue IV fluid monitor blood glucose. Hold diuretics, nephrology following. 12/17: Worsening renal failure with current creatinine is 4.2, mild acidosis, bicarbonate around 21. Initiate on TF, monitor ins/os. Most likely etiology of his renal failure appears to be due to radiocontrast exposure, hypoxemia, respiratory failure which likely resulted in acute tubular necrosis. cont to follow BMP, nephrology following 12/18: Cr slightly improved, Na 152 - will change fluid to 1/2NS, increase insulin dose to better control hyperglycemia, follow clinically Assessment and plan: (1) Acute metabolic encephalopathy Current Visit: Yes Status: Acute Plan to address problem: Admitted the patient to the medical telemetry. Acute metabolic encephalopathy secondary to CVA and MAURI. Aspirin 325 mg p.o. daily. Lipitor 40 mg p.o. daily. We do MRI of the brain and MRA of the brain and neck with and without contrast echocardiogram PT OT speech evaluation. Please consult neurology in the morning (2) MAURI (acute kidney injury) with vasomotor nephropathy on CKD stage III - creatinine worsening Current Visit: Yes Status: Acute Plan to address problem: Avoid nephrotoxic drug. Renally dose medication. Normal saline at the rate of 100 cc/h. BMP in the morning (3) Diabetes Current Visit: Yes Status: Acute Plan to address problem: Accu-Chek every 6 hours with Humalog low-dose coverage. Diabetic education (4) Lactic acidosis Current Visit: Yes Status: Acute Plan to address problem: Rocephin 2 g IV daily. Normal saline 100 mL/h. We will repeat the lactic acid. (5) Pleural effusion Current Visit: Yes Status: Acute Plan to address problem: Oxygen via nasal cannula 3 L/min. DuoNeb via nebulizer every 4 hours. Albuterol via nebulizer every 4 hours as needed. We will monitor the patient closely. If needed will consult pulmonary (6) tonic-clonic seizure (7) systemic inflammatory response syndrome secondary to seizures (8) hypoxic respiratory failure on admission (9) DVT prophylaxis Current Visit: Yes Status: Acute Plan to address problem: Heparin 5000 units subcu every 12 hours for DVT prophylaxis. Pepcid 20 mg IV every 12 hours for GI prophylaxis. Patient is a full code Subjective Date of service: 12/25/21 Interval history: Patient seen and examined. Medical records and medication list reviewed. No acute event overnight noted by the RN. patient remains confused Cr slightly trended down today Blood glucose remains elevated Continues to have low urine output Objective - Exam Narrative Exam: General appearance: Present: no acute distress, well-nourished, confused - EENT Eyes: Present: PERRL ENT: hearing intact, clear oral mucosa - Neck Neck: Present: supple, normal ROM - Respiratory Respiratory effort: normal Respiratory: bilateral: CTA - Cardiovascular Heart Sounds: Present: S1 & S2. Absent: rub, click - Extremities Extremities: pulses symmetrical, No edema Peripheral Pulses: within normal limits - Abdominal General gastrointestinal: Present: soft, non-tender, non-distended, normal bowel sounds Male genitourinary: Present: normal - Integumentary Integumentary: Present: clear, warm, dry - Musculoskeletal Musculoskeletal: Motor strength unable to fully examine. There is no flaccidity appreciated of bilateral upper extremity. - Psychiatric Psychiatric: Unable to assess - Neurologic Neurologic: Confused - Constitutional Vitals: Vital Signs - 12hr 12/18/21 12/18/21 12/18/21 02:00 04:00 07:38 Temperature 97.6 F Pulse Rate 92 H 105 H Pulse Rate [ 85 Anterior Bilateral] Respiratory 20 Rate Respiratory 15 Rate [Anterior Bilateral] Blood Pressure 116/64 O2 Sat by Pulse 94 Oximetry 12/18/21 10:00 Temperature Pulse Rate Pulse Rate [ Anterior Bilateral] Respiratory Rate Respiratory Rate [Anterior Bilateral] Blood Pressure O2 Sat by Pulse 98 Oximetry - Labs CBC & Chem 7: 12/17/21 04:22 12/18/21 05:30 Labs: Abnormal lab results 12/17/21 12/18/21 12/18/21 Range/Units 17:19 00:42 05:24 Sodium (137-145) mmol/L Chloride (98-107) mmol/L Carbon Dioxide (22-30) mmol/L BUN (9-20) mg/dL Creatinine (0.8-1.3) mg/dL Glucose (75-100) mg/dL POC Glucose 197 H 191 H 289 H (70-105) mg/dL 12/18/21 12/18/21 Range/Units 05:30 12:02 Sodium 152 H D (137-145) mmol/L Chloride 114.1 H (98-107) mmol/L Carbon Dioxide 21 L (22-30) mmol/L BUN 115 H (9-20) mg/dL Creatinine 3.6 H (0.8-1.3) mg/dL Glucose 294 H (75-100) mg/dL POC Glucose 316 H (70-105) mg/dL HEART Score - HEART Score Troponin: Troponin T 0.062 ng/mL (0.00-0.029) H 12/13/21 22:49
--- NOTE | 2021-12-18 16:14 | Consultation ---
DATE OF CONSULTATION: 12/18/2021 HISTORY OF PRESENT ILLNESS: The patient presented with a history of a stroke, diabetes and he is more lethargic today. I could not do a full exam because he does not move, not cooperative. He had evidence of retention. Vallecillo catheter is draining clear urine. His creatinine was 3.6 today and he has had a renal ultrasound and evaluation by nephrology. PAST MEDICAL HISTORY: Previous stroke, diabetes. PAST SURGICAL HISTORY: No surgery. He has a feeding tube. SOCIAL HISTORY: Noncontributory. FAMILY HISTORY: Unknown. REVIEW OF SYSTEMS: Unobtainable. PHYSICAL EXAMINATION: GENERAL: He is awake, but very lethargic, mostly sleeping, could not move or cooperate. ABDOMEN: Soft, nondistended. Bladder is well decompressed. GENITALIA: Circumcised. Vallecillo is clear. Testes mildly atrophic, descended. No scrotal pathology. IMPRESSION: Renal insufficiency, ?retention. Vallecillo catheter was inserted after multiple attempts. Vallecillo catheter is draining clear. He had an ultrasound, which showed no significant hydronephrosis. We will leave the catheter and monitor his labs and give him a voiding trial when he is medically more stable and ambulatory. TID: [id number] RECEIPT: SERGIO
[2021-12-18] MEDS: SODIUM CHLORIDE 0.45% 1000 ML 1,000 ML IV SCH (21:38)
--- NOTE | 2021-12-18 22:44 | Progress Note ---
Subjective Interval history: Time of evaluation 12:40 PM assessment and plan #Acute kidney injury: Appears to be improving well now creatinine is currently 3.6 bicarbonate is 21, there is no acute emergent indication for renal replacement therapy Renal ultrasonogram shows bilateral echogenic kidneys, Most likely etiology of renal failure appears to be due to radiocontrast exposure, hypoxemia, respiratory failure which likely resulted in acute tubular necrosis from which she is improving strict intake and output needs to be monitored closely Consider giving free water 250 cc every 4 hour if there is no contraindications #Hypernatremia we will consider giving more free water replacement, patient clinically appears to be volume depleted #Metabolic acidosis appears to be improving, also has had lactic acidosis, #Diabetes mellitus type 2 appears to be under fair control last hemoglobin A1c is around 7.6 Continue with supportive care for now As far as medicines are concerned consider reducing vitamin C to 500 mg once a day, If there are any renal related issues in regards to this patient please feel free to reach out without any hesitation at [phone] We'll continue to follow and make recommendation for renal standpoint. Progress note by: Jayjay Roger MD [address] [place] [address] Tele [phone] [email or web address] Patient was seen today for follow-up of multiple renal related issues Remains encephalopathic Interdisciplinary notes that also reviewed Events of 24 hours vitals labs intake output medications were reviewed Past medical history: Reviewed Family history: Reviewed Social history: Reviewed Allergies: Reviewed Physical examination: Vitals: Reviewed HEENT: No pallor or icterus oral mucosa Appears to be dry Neck: Supple no JVD no thyromegaly Chest: Bilateral clear to auscultation anteriorly Heart: Regular rate and rhythm S1-S2 heard no S3-S4 Abdomen: Soft nontender no voluntary guarding rigidity rebound Extremity: Dry skin No significant edema Psychiatric: No evidence of agitation and aggression noted Dermatology: No petechial rashes Labs and x-rays: Reviewed from today 1 Objective - Vital Signs Vital signs: Vital Signs - 12hr 12/18/21 12/18/21 12/18/21 12:01 17:03 20:08 Temperature 97.9 F 98.7 F 98.4 F Pulse Rate 102 H 102 H 108 H Respiratory 18 18 18 Rate Blood Pressure 116/66 115/70 125/67 O2 Sat by Pulse 96 96 97 Oximetry 12/18/21 21:08 Temperature Pulse Rate 108 H Respiratory Rate Blood Pressure 125/67 O2 Sat by Pulse Oximetry - Lab 12/17/21 04:22 12/18/21 05:30 Most recent lab results Calcium 8.8 mg/dL (8.4-10.2) 12/18/21 05:30 Magnesium 2.30 mg/dL (1.7-2.3) 12/13/21 22:49 Medications & Allergies - Medications Allergies/Adverse Reactions: Allergies No Known Allergies Allergy (Verified 12/09/21 12:16) Home Medications: Home Medications Medication Instructions Recorded Confirmed Last Taken Type cephALEXin [Keflex] 500 mg PO Q6HR 7 Days #28 capsule 12/09/21 12/14/21 Unknown Rx Aspirin [Estill Aspirin EC] 81 mg PO QDAY 12/14/21 12/14/21 Unknown History Atorvastatin [Lipitor Tab] 80 mg PO QHS 12/14/21 12/14/21 Unknown History Dapagliflozin Propanediol [Farxiga] 10 mg PO QDAY 12/14/21 12/14/21 Unknown History Insulin Detemir [Levemir VIAL] 25 unit SQ QHS 12/14/21 12/14/21 Unknown History Insulin Lispro [Admelog] 100 unit SQ ACHS 12/14/21 12/14/21 Unknown History Sertraline [Zoloft] 100 mg PO QDAY 12/14/21 12/14/21 Unknown History Tamsulosin [Flomax] 0.4 mg PO QDAY 12/14/21 12/14/21 Unknown History Torsemide [Demadex] 20 mg PO QDAY 12/14/21 12/14/21 Unknown History carvediloL [Coreg] 3.125 mg PO BID 12/14/21 12/14/21 Unknown History Active Medications: Generic Name Dose Route Start Last Admin Trade Name Freq PRN Reason Stop Dose Admin Acetaminophen 650 mg 12/14/21 00:30 12/16/21 16:04 Acetaminophen 325 Mg Tab PO 650 mg Q4H PRN Administration Pain MILD(1-3)/Fever >100.5/ROGERS Albuterol 2.5 mg 12/14/21 00:30 Albuterol 2.5 Mg/3 Ml Nebu IH Q3HRT PRN Shortness Of Breath Lipase/Protease/Amylase 1 each 12/17/21 11:46 Lipase 10,500/Protease 25,000/Amylase 43,750 (Units) Dr Mariee FEEDTUBE PRN PRN For Clogged Feeding Tube Ascorbic Acid 500 mg 12/14/21 10:00 12/18/21 21:08 Ascorbic Acid 500 Mg Tab PO 500 mg BID ALEXSANDRA Administration Aspirin 81 mg 12/14/21 10:00 12/18/21 10:08 Aspirin Ec 81 Mg Tab PO 81 mg QDAY ALEXSANDRA Administration Atorvastatin Calcium 80 mg 12/14/21 22:00 12/18/21 21:08 Atorvastatin 40 Mg Tab PO 80 mg QHS ALEXSANDRA Administration Carvedilol 3.125 mg 12/14/21 10:00 12/18/21 21:08 Carvedilol 3.125 Mg Tab PO 3.125 mg BID ALEXSANDRA Administration Cholecalciferol 1,000 unit 12/16/21 14:00 12/18/21 10:08 Cholecalciferol (Vit D3) 1000 Unit (25 Mcg) Tab PO 1,000 unit DAILY ALEXSANDRA Administration Clopidogrel Bisulfate 75 mg 12/17/21 10:00 12/18/21 10:08 Clopidogrel 75 Mg Tab PO 75 mg QDAY ALEXSANDRA Administration Dextrose 50 ml 12/14/21 00:30 Dextrose 50% In Water (25gm) 50 Ml Syringe IV Q30MIN PRN Hypoglycemia Protocol Famotidine 20 mg 12/17/21 10:00 12/18/21 10:07 Famotidine 20 Mg Tab PO 20 mg DAILY ALEXSANDRA Administration Heparin Sodium (Porcine) 5,000 unit 12/16/21 14:00 12/18/21 21:09 Heparin 5,000 Unit/1 Ml Vial SUB-Q 5,000 unit Q8HR ALEXSANDRA Administration Ceftriaxone Sodium 2 gm in 100 mls @ 200 mls/hr 12/14/21 01:00 12/18/21 01:54 Rocephin/Ns 2 Gm/100 Ml IV 12/19/21 00:59 200 mls/hr Q24H ALEXSANDRA Administration Protocol Sodium Chloride 1,000 mls @ 75 mls/hr 12/18/21 09:00 12/18/21 21:38 Nacl 0.45% 1000 Ml IV 75 mls/hr DIRECT ALEXSANDRA Administration Insulin Human Isoph/Insulin Regular 15 unit 12/18/21 13:08 12/18/21 18:51 Insulin Nph/Regular 70/30 Inj SUB-Q 15 unit BIDDIAB ALEXSANDRA Administration Insulin Human Lispro 0 unit 12/14/21 06:00 12/18/21 18:51 Insulin Lispro 100 Unit/Ml SUB-Q 1 unit Q6HR ALEXSANDRA Administration Protocol Labetalol HCl 10 mg 12/14/21 00:30 Labetalol 20 Mg/4 Ml Inj IV Q5MIN PRN to maintain SBP < 180 Morphine Sulfate 2 mg 12/14/21 00:30 Morphine 2 Mg/1 Ml Inj IV Q4H PRN Pain, Moderate (4-6) Morphine Sulfate 4 mg 12/14/21 00:30 Morphine 4 Mg/1 Ml Inj IV Q4H PRN Pain , Severe (7-10) Ondansetron HCl 4 mg 12/14/21 00:30 Ondansetron 4 Mg/2 Ml Inj IV Q8H PRN Nausea And Vomiting Sertraline HCl 100 mg 12/14/21 10:00 12/18/21 10:07 Sertraline 100 Mg Tab PO 100 mg QDAY ALEXSANDRA Administration Simple Syrup 15 ml 12/17/21 11:46 Simple Syrup 15 Ml FEEDTUBE PRN PRN Hypoglycemia Simple Syrup 30 ml 12/17/21 11:46 Simple Syrup 15 Ml FEEDTUBE PRN PRN Hypoglycemia Sodium Bicarbonate 325 mg 12/17/21 11:46 Sodium Bicarbonate 325 Mg Tab FEEDTUBE PRN PRN For Clogged Feeding Tube Sodium Chloride 10 ml 12/14/21 10:00 12/18/21 21:10 Sodium Chloride 0.9% 10 Ml Flush Syringe IV 10 ml BID ALEXSANDRA Administration Sodium Chloride 10 ml 12/14/21 00:30 Sodium Chloride 0.9% 10 Ml Flush Syringe IV PRN PRN LINE FLUSH Tamsulosin HCl 0.4 mg 12/14/21 10:00 12/18/21 10:07 Tamsulosin 0.4 Mg Cap PO 0.4 mg QDAY ALEXSANDRA Administration Zinc Sulfate 220 mg 12/14/21 10:00 12/18/21 21:12 Zinc Sulfate 220 Mg Cap PO 220 mg BID ALEXSANDRA Administration
[2021-12-18 23:38] LABS: Bacteria,Urine 1+ /HPF (Negative); Mucus,Urine FEW /HPF
[2021-12-18 23:50] LABS: Color,Urine Straw (Yellow)
[2021-12-18 23:51] LABS: Bilirubin,Urine NEG (Negative); Blood,Urine Large (Negative)
[2021-12-18 23:52] LABS: Urobilinogen,Urine < 2.0 mg/dL (<2.0)
[2021-12-19] MEDS: INSULIN LISPRO 100 UNIT/ML SUB-Q SCH ×4 (01:04→17:24)
[2021-12-19 05:20] LABS: Hematocrit 42.5 % (35.5-45.6); Hemoglobin 13.2 gm/dl (11.8-15.2)
[2021-12-19] MEDS: HEPARIN 5,000 UNIT/1 ML VIAL SUB-Q SCH ×3 (05:48→21:46)
[2021-12-19] MEDS: ACETAMINOPHEN 325 MG TAB PO PRN (06:01)
[2021-12-19] MEDS: SERTRALINE 100 MG TAB PO SCH (09:07)
[2021-12-19] MEDS: ZINC SULFATE 220 MG CAP PO SCH ×2 (09:07→22:00)
[2021-12-19] MEDS: TAMSULOSIN 0.4 MG CAP PO SCH (09:07)
[2021-12-19] MEDS: ASPIRIN EC 81 MG TAB PO SCH (09:07)
[2021-12-19] MEDS: CLOPIDOGREL 75 MG TAB PO SCH (09:08)
[2021-12-19] MEDS: FAMOTIDINE 20 MG TAB PO SCH (09:08)
[2021-12-19] MEDS: INSULIN NPH/REGULAR 70/30 INJ SUB-Q SCH ×2 (09:08→17:25)
[2021-12-19] MEDS: ASCORBIC ACID 500 MG TAB PO SCH ×2 (09:08→21:46)
[2021-12-19] MEDS: CHOLECALCIFEROL (VIT D3) 1000 UNIT (25 mcg) TAB PO SCH (09:08)
[2021-12-19] MEDS: carvediloL 3.125 MG TAB PO SCH ×2 (09:10→21:46)
--- NOTE | 2021-12-19 10:13 | Progress Note ---
Subjective Interval history: Time of evaluation 12:40 PM assessment and plan #Acute kidney injury: As of today, labs currently pending, will order for basic metabolic profile as well as osmolality studies, as of yesterday creatinine was down to 3.6, Renal ultrasonogram shows bilateral echogenic kidneys, Most likely etiology of renal failure appears to be due to radiocontrast exposure, hypoxemia, respiratory failure which likely resulted in acute tubular necrosis from which she is improving strict intake and output needs to be monitored closely We will order for free water 250 cc every 4 hours as tolerated #Hypernatremia we will consider giving more free water replacement, patient clinically appears to be volume depleted #Metabolic acidosis appears to be improving, also has had lactic acidosis, #Diabetes mellitus type 2 appears to be under fair control last hemoglobin A1c is around 7.6 Continue with supportive care for now As far as medicines are concerned consider reducing vitamin C to 500 mg once a day, If there are any renal related issues in regards to this patient please feel free to reach out without any hesitation at [phone] We'll continue to follow and make recommendation for renal standpoint. Progress note by: Jayjay Roger MD [address] [place] [address] Tele [phone] [email or web address] Patient was seen today for follow-up of multiple renal related issues Remains encephalopathic Interdisciplinary notes that also reviewed Events of 24 hours vitals labs intake output medications were reviewed Past medical history: Reviewed Family history: Reviewed Social history: Reviewed Allergies: Reviewed Physical examination: Vitals: Reviewed HEENT: No pallor or icterus oral mucosa Appears to be dry Neck: Supple no JVD no thyromegaly Chest: Bilateral clear to auscultation anteriorly Heart: Regular rate and rhythm S1-S2 heard no S3-S4 Abdomen: Soft nontender no voluntary guarding rigidity rebound Extremity: Dry skin No significant edema Psychiatric: No evidence of agitation and aggression noted Dermatology: No petechial rashes Labs and x-rays: Reviewed from today 1 Objective - Vital Signs Vital signs: Vital Signs - 12hr 12/19/21 12/19/21 12/19/21 04:00 04:09 07:58 Temperature 100.8 F H 99.3 F Pulse Rate 106 H 110 H 100 H Respiratory 18 22 Rate Blood Pressure 117/68 115/67 O2 Sat by Pulse 95 96 Oximetry 12/19/21 09:10 Temperature Pulse Rate 77 Respiratory Rate Blood Pressure 115/67 O2 Sat by Pulse Oximetry - Lab 12/19/21 04:39 12/18/21 05:30 Most recent lab results Calcium 8.8 mg/dL (8.4-10.2) 12/18/21 05:30 Magnesium 2.30 mg/dL (1.7-2.3) 12/13/21 22:49 Medications & Allergies - Medications Allergies/Adverse Reactions: Allergies No Known Allergies Allergy (Verified 12/09/21 12:16) Home Medications: Home Medications Medication Instructions Recorded Confirmed Last Taken Type cephALEXin [Keflex] 500 mg PO Q6HR 7 Days #28 capsule 12/09/21 12/14/21 Unknown Rx Aspirin [Naturita Aspirin EC] 81 mg PO QDAY 12/14/21 12/14/21 Unknown History Atorvastatin [Lipitor Tab] 80 mg PO QHS 12/14/21 12/14/21 Unknown History Dapagliflozin Propanediol [Farxiga] 10 mg PO QDAY 12/14/21 12/14/21 Unknown History Insulin Detemir [Levemir VIAL] 25 unit SQ QHS 12/14/21 12/14/21 Unknown History Insulin Lispro [Admelog] 100 unit SQ ACHS 12/14/21 12/14/21 Unknown History Sertraline [Zoloft] 100 mg PO QDAY 12/14/21 12/14/21 Unknown History Tamsulosin [Flomax] 0.4 mg PO QDAY 12/14/21 12/14/21 Unknown History Torsemide [Demadex] 20 mg PO QDAY 12/14/21 12/14/21 Unknown History carvediloL [Coreg] 3.125 mg PO BID 12/14/21 12/14/21 Unknown History Active Medications: Generic Name Dose Route Start Last Admin Trade Name Freq PRN Reason Stop Dose Admin Acetaminophen 650 mg 12/14/21 00:30 12/19/21 06:01 Acetaminophen 325 Mg Tab PO 650 mg Q4H PRN Administration Pain MILD(1-3)/Fever >100.5/ROGERS Albuterol 2.5 mg 12/14/21 00:30 Albuterol 2.5 Mg/3 Ml Nebu IH Q3HRT PRN Shortness Of Breath Lipase/Protease/Amylase 1 each 12/17/21 11:46 Lipase 10,500/Protease 25,000/Amylase 43,750 (Units) Dr Mariee FEEDTUBE PRN PRN For Clogged Feeding Tube Ascorbic Acid 500 mg 12/14/21 10:00 12/19/21 09:08 Ascorbic Acid 500 Mg Tab PO 500 mg BID ALEXSANDRA Administration Aspirin 81 mg 12/14/21 10:00 12/19/21 09:07 Aspirin Ec 81 Mg Tab PO 81 mg QDAY ALEXSANDRA Administration Atorvastatin Calcium 80 mg 12/14/21 22:00 12/18/21 21:08 Atorvastatin 40 Mg Tab PO 80 mg QHS ALEXSANDRA Administration Carvedilol 3.125 mg 12/14/21 10:00 12/19/21 09:10 Carvedilol 3.125 Mg Tab PO 3.125 mg BID ALEXSANDRA Administration Cholecalciferol 1,000 unit 12/16/21 14:00 12/19/21 09:08 Cholecalciferol (Vit D3) 1000 Unit (25 Mcg) Tab PO 1,000 unit DAILY ALEXSANDRA Administration Clopidogrel Bisulfate 75 mg 12/17/21 10:00 12/19/21 09:08 Clopidogrel 75 Mg Tab PO 75 mg QDAY ALEXSANDRA Administration Dextrose 50 ml 12/14/21 00:30 Dextrose 50% In Water (25gm) 50 Ml Syringe IV Q30MIN PRN Hypoglycemia Protocol Famotidine 20 mg 12/17/21 10:00 12/19/21 09:08 Famotidine 20 Mg Tab PO 20 mg DAILY ALEXSANDRA Administration Heparin Sodium (Porcine) 5,000 unit 12/16/21 14:00 12/19/21 05:48 Heparin 5,000 Unit/1 Ml Vial SUB-Q 5,000 unit Q8HR ALEXSANDRA Administration Sodium Chloride 1,000 mls @ 75 mls/hr 12/18/21 09:00 12/18/21 21:38 Nacl 0.45% 1000 Ml IV 75 mls/hr DIRECT ALEXSANDRA Administration Ceftriaxone Sodium 1 gm in 50 mls @ 100 mls/hr 12/19/21 11:00 Rocephin/Ns 1 Gm/50 Ml IV Q24H [facility] Protocol Insulin Human Isoph/Insulin Regular 15 unit 12/18/21 13:08 12/19/21 09:08 Insulin Nph/Regular 70/30 Inj SUB-Q 15 unit BIDDIAB ALEXSANDRA Administration Insulin Human Lispro 0 unit 12/14/21 06:00 12/19/21 05:55 Insulin Lispro 100 Unit/Ml SUB-Q 4 unit Q6HR ALEXSANDRA Administration Protocol Labetalol HCl 10 mg 12/14/21 00:30 Labetalol 20 Mg/4 Ml Inj IV Q5MIN PRN to maintain SBP < 180 Morphine Sulfate 2 mg 12/14/21 00:30 Morphine 2 Mg/1 Ml Inj IV Q4H PRN Pain, Moderate (4-6) Morphine Sulfate 4 mg 12/14/21 00:30 Morphine 4 Mg/1 Ml Inj IV Q4H PRN Pain , Severe (7-10) Ondansetron HCl 4 mg 12/14/21 00:30 Ondansetron 4 Mg/2 Ml Inj IV Q8H PRN Nausea And Vomiting Sertraline HCl 100 mg 12/14/21 10:00 12/19/21 09:07 Sertraline 100 Mg Tab PO 100 mg QDAY ALEXSANDRA Administration Simple Syrup 15 ml 12/17/21 11:46 Simple Syrup 15 Ml FEEDTUBE PRN PRN Hypoglycemia Simple Syrup 30 ml 12/17/21 11:46 Simple Syrup 15 Ml FEEDTUBE PRN PRN Hypoglycemia Sodium Bicarbonate 325 mg 12/17/21 11:46 Sodium Bicarbonate 325 Mg Tab FEEDTUBE PRN PRN For Clogged Feeding Tube Sodium Chloride 10 ml 12/14/21 10:00 12/18/21 21:10 Sodium Chloride 0.9% 10 Ml Flush Syringe IV 10 ml BID ALEXSANDRA Administration Sodium Chloride 10 ml 12/14/21 00:30 Sodium Chloride 0.9% 10 Ml Flush Syringe IV PRN PRN LINE FLUSH Tamsulosin HCl 0.4 mg 12/14/21 10:00 12/19/21 09:07 Tamsulosin 0.4 Mg Cap PO 0.4 mg QDAY ALEXSANDRA Administration Zinc Sulfate 220 mg 12/14/21 10:00 12/19/21 09:07 Zinc Sulfate 220 Mg Cap PO 220 mg BID ALEXSANDRA Administration
[2021-12-19] MEDS: cefTRIAXone/NS 1 GM/50 ML 1 GM/50 ML BAG IV SCH (12:00)
[2021-12-19] MEDS: SODIUM CHLORIDE 0.45% 1000 ML 1,000 ML IV SCH (12:41)
--- NOTE | 2021-12-19 15:11 | Progress Note ---
Assessment and Plan Patient is a 66-year-old male with past medical history of CVA, diabetes was brought to the emergency room because of altered mental status. Patient is was sent from [facility] after he was noted to be unresponsive approximately 2 hours ago. Per nursing the patient is normally talkative. EMS was called and found the patient to be hypoxic to 88% on room air and patient was placed on a nonrebreather. The patient is currently unresponsive with eyes open Case discussed with tele-neurologist Dr. Ha-given last known well time of 09: 00 patient is not a tPA candidate. As patient is bedbound he is not a candidate for thrombectomy. CTA shows occlusion of right carotid artery however intracranially there is no occlusion seen Imaging studies including a CT of the head showed There is occlusion of the right common carotid artery from its origin which extends to involve the entire right internal carotid artery with minimal retrograde flow in the distal right ICA. 2. Small age-indeterminate right rice radiata white matter lacunar infarctions. No other occlusion or significant stenosis. Chest x-ray shows no acute pathology. 12/15/21: At this time we will discontinue heparin drip until patient is seen by vascular surgery. MRI still pending, unsure if patient actually had a CVA would not want this to expand with the current heparin drip ordered. Patient does not show persistent hypoxia or in any acute respiratory distress at this time although on 2 L of oxygen with good sustained saturation. We will obtain a VQ scan at this time. I will also obtain nephrology consultation due to acute on chronic CKD creatinine checked on November showed a creatinine of 2.3 although this is close to our recent time and not sure what his underlying baseline is. Continue seizure precautions. Will await for neurology input for possible EEG to rule out status epilepticus. Aspiration precautions 12/16: Mental status remains unchanged and this is why unable to complete MRI as we cannot complete the screening process. Seen by vascular and recommended to continue medical management until mental status improves. Plan to repeat CT brain tomorrow in the morning as we cannot do MRI. Renal function continued to get worse, continue IV fluid monitor blood glucose. Hold diuretics, nephrology following. 12/17: Worsening renal failure with current creatinine is 4.2, mild acidosis, bicarbonate around 21. Initiate on TF, monitor ins/os. Most likely etiology of his renal failure appears to be due to radiocontrast exposure, hypoxemia, respiratory failure which likely resulted in acute tubular necrosis. cont to follow BMP, nephrology following 12/18: Cr slightly improved, Na 152 - will change fluid to 1/2NS, increase insulin dose to better control hyperglycemia, follow clinically 12/19. Sodium remains elevated, continue half-normal saline. UA suggestive for UTI initiated on empiric antibiotic, also ordered blood culture and urine culture. Creatinine trending down, follow BMP Assessment and plan: -- UTI with sepsis, started on empiric antibiotics, ordered urine and blood culture -- Hypernatremia, continue half-normal saline, monitor BMP -- Acute metabolic encephalopathy Current Visit: Yes Status: Acute Plan to address problem: Admitted the patient to the medical telemetry. Acute metabolic encephalopathy secondary to CVA and MAURI. Aspirin 325 mg p.o. daily. Lipitor 40 mg p.o. daily. We do MRI of the brain and MRA of the brain and neck with and without contrast echocardiogram PT OT speech evaluation. Please consult neurology in the morning -- MAURI (acute kidney injury) with vasomotor nephropathy on CKD stage III -cr eatinine worsening Current Visit: Yes Status: Acute Plan to address problem: Avoid nephrotoxic drug. Renally dose medication. Normal saline at the rate of 100 cc/h. BMP in the morning -- Diabetes type 2 Current Visit: Yes Status: Acute Plan to address problem: Accu-Chek every 6 hours with Humalog low-dose coverage. Diabetic education -- Lactic acidosis Current Visit: Yes Status: Acute Plan to address problem: Rocephin 2 g IV daily. Normal saline 100 mL/h. We will repeat the lactic acid. -- Pleural effusion Current Visit: Yes Status: Acute Plan to address problem: Oxygen via nasal cannula 3 L/min. DuoNeb via nebulizer every 4 hours. Albuterol via nebulizer every 4 hours as needed. We will monitor the patient closely. If needed will consult pulmonary -- tonic-clonic seizure , cont AED --Acute hypoxic respiratory failure on admission, braden from pleural effusion -- DVT prophylaxis Current Visit: Yes Status: Acute Plan to address problem: Heparin 5000 units subcu every 12 hours for DVT prophylaxis. Pepcid 20 mg IV every 12 hours for GI prophylaxis. Patient is a full code Subjective Date of service: 12/19/21 Interval history: Patient seen and examined. Medical records and medication list reviewed. No acute event overnight noted by the RN. patient remains confused Cr slightly trended down, Na level elevated Blood glucose remains elevated Continues to have low urine output Objective - Exam Narrative Exam: General appearance: Present: no acute distress, well-nourished, confused - EENT Eyes: Present: PERRL ENT: hearing intact, clear oral mucosa - Neck Neck: Present: supple, normal ROM - Respiratory Respiratory effort: normal Respiratory: bilateral: CTA - Cardiovascular Heart Sounds: Present: S1 & S2. Absent: rub, click - Extremities Extremities: pulses symmetrical, No edema Peripheral Pulses: within normal limits - Abdominal General gastrointestinal: Present: soft, non-tender, non-distended, normal bowel sounds Male genitourinary: Present: normal - Integumentary Integumentary: Present: clear, warm, dry - Musculoskeletal Musculoskeletal: Motor strength unable to fully examine. There is no flaccidity appreciated of bilateral upper extremity. - Psychiatric Psychiatric: Unable to assess - Neurologic Neurologic: Confused - Constitutional Vitals: Vital Signs - 12hr 12/19/21 12/19/21 12/19/21 04:00 04:09 07:58 Temperature 100.8 F H 99.3 F Pulse Rate 106 H 110 H 100 H Respiratory 18 22 Rate Blood Pressure 117/68 115/67 O2 Sat by Pulse 95 96 Oximetry 12/19/21 12/19/21 12/19/21 09:10 10:00 11:08 Temperature 100.1 F H Pulse Rate 77 101 H Respiratory 18 Rate Blood Pressure 115/67 110/64 O2 Sat by Pulse 97 96 Oximetry - Labs CBC & Chem 7: 12/21/21 05:38 12/21/21 05:38 Labs: Abnormal lab results 12/18/21 12/18/21 12/19/21 Range/Units 17:01 23:00 00:02 Plt Count (140-440) K/mm3 Sodium (137-145) mmol/L Chloride (98-107) mmol/L Carbon Dioxide (22-30) mmol/L BUN (9-20) mg/dL Creatinine (0.8-1.3) mg/dL Glucose (75-100) mg/dL POC Glucose 291 H 291 H (70-105) mg/dL Urine Blood Large A (Negative) Urine WBC (Auto) 18.0 H (0.0-6.0) /HPF 12/19/21 12/19/21 12/19/21 Range/Units 04:39 05:49 10:27 Plt Count 75 L (140-440) K/mm3 Sodium 159 H (137-145) mmol/L Chloride 124.8 H (98-107) mmol/L Carbon Dioxide 20 L (22-30) mmol/L BUN 97 H (9-20) mg/dL Creatinine 2.5 H (0.8-1.3) mg/dL Glucose 344 H (75-100) mg/dL POC Glucose 288 H (70-105) mg/dL Urine Blood (Negative) Urine WBC (Auto) (0.0-6.0) /HPF 12/19/21 Range/Units 11:06 Plt Count (140-440) K/mm3 Sodium (137-145) mmol/L Chloride (98-107) mmol/L Carbon Dioxide (22-30) mmol/L BUN (9-20) mg/dL Creatinine (0.8-1.3) mg/dL Glucose (75-100) mg/dL POC Glucose 312 H (70-105) mg/dL Urine Blood (Negative) Urine WBC (Auto) (0.0-6.0) /HPF HEART Score - HEART Score Troponin: Troponin T 0.062 ng/mL (0.00-0.029) H 12/13/21 22:49
[2021-12-20] MEDS: INSULIN LISPRO 100 UNIT/ML SUB-Q SCH ×4 (00:23→17:51)
[2021-12-20 05:23] LABS: Calcium 8.7 mg/dL (8.4-10.2)
[2021-12-20] MEDS: HEPARIN 5,000 UNIT/1 ML VIAL SUB-Q SCH ×3 (06:46→21:18)
[2021-12-20] MEDS: SODIUM CHLORIDE 0.45% 1000 ML 1,000 ML IV SCH (06:51)
[2021-12-20] MEDS ORDERED: SODIUM CHLORIDE 0.45% 1000 ML 1,000 ML IV SCH (08:00)
[2021-12-20] MEDS: INSULIN NPH/REGULAR 70/30 INJ SUB-Q SCH ×2 (08:36→17:51)
[2021-12-20] MEDS: CHOLECALCIFEROL (VIT D3) 1000 UNIT (25 mcg) TAB PO SCH (10:01)
[2021-12-20] MEDS: ZINC SULFATE 220 MG CAP PO SCH ×2 (10:01→21:17)
[2021-12-20] MEDS: FAMOTIDINE 20 MG TAB PO SCH (10:02)
[2021-12-20] MEDS: CLOPIDOGREL 75 MG TAB PO SCH (10:02)
[2021-12-20] MEDS: SERTRALINE 100 MG TAB PO SCH (10:02)
[2021-12-20] MEDS: carvediloL 3.125 MG TAB PO SCH ×2 (10:02→21:17)
[2021-12-20] MEDS: ASCORBIC ACID 500 MG TAB PO SCH ×2 (10:02→21:17)
[2021-12-20] MEDS: TAMSULOSIN 0.4 MG CAP PO SCH (10:02)
[2021-12-20] MEDS: ASPIRIN EC 81 MG TAB PO SCH (10:02)
[2021-12-20] MEDS: cefTRIAXone/NS 1 GM/50 ML 1 GM/50 ML BAG IV SCH (10:05)
--- NOTE | 2021-12-20 10:53 | Progress Note ---
Subjective Interval history: Patient was evaluated today my assessment and plan are as follows #Acute kidney injury: As of today, remarkable improvement in renal function current creatinine is 2.1, suggest more free water, for hypernatremia which is currently at 164 progressively getting worse 300 cc every 4 hours as tolerated, Strict intake and output must be obtained #needs better control of his blood sugar, 12/18 Creatinine was down to 3.6, Renal ultrasonogram shows bilateral echogenic kidneys, Most likely etiology of renal failure appears to be due to radiocontrast exposure, hypoxemia, respiratory failure which likely resulted in acute tubular necrosis from which she is improving strict intake and output needs to be monitored closely We will order for free water 250 cc every 4 hours as tolerated #Hypernatremia we will consider giving more free water replacement, patient clinically appears to be volume depleted Increase free water to 300 cc every 4 hours Check osmolality studies Depending on the urine output I may consider giving him a short course of DDAVP #Metabolic acidosis appears to be improving, also has had lactic acidosis, #Diabetes mellitus type 2 appears to be under fair control last hemoglobin A1c is around 7.6 Continue with supportive care for now As far as medicines are concerned consider reducing vitamin C to 500 mg once a day, If there are any renal related issues in regards to this patient please feel free to reach out without any hesitation at [phone] We'll continue to follow and make recommendation for renal standpoint. Progress note by: Jayjay Roger MD [address] [place] [id number] Tele [phone] [email or web address] Patient was seen today for follow-up of multiple renal related issues Remains encephalopathic Interdisciplinary notes that also reviewed Events of 24 hours vitals labs intake output medications were reviewed Past medical history: Reviewed Family history: Reviewed Social history: Reviewed Allergies: Reviewed Physical examination: Vitals: Reviewed HEENT: No pallor or icterus oral mucosa Appears to be dry Neck: Supple no JVD no thyromegaly Chest: Bilateral clear to auscultation anteriorly Heart: Regular rate and rhythm S1-S2 heard no S3-S4 Abdomen: Soft nontender no voluntary guarding rigidity rebound Extremity: Dry skin No significant edema Psychiatric: No evidence of agitation and aggression noted Dermatology: No petechial rashes Labs and x-rays: Reviewed from today 1 Objective - Vital Signs Vital signs: Vital Signs - 12hr 12/20/21 12/20/21 12/20/21 00:00 03:57 07:37 Temperature 98.4 F 98.8 F Pulse Rate 86 86 Respiratory 16 15 Rate Blood Pressure 101/51 115/58 O2 Sat by Pulse 94 98 97 Oximetry 12/20/21 12/20/21 08:15 10:02 Temperature 99.4 F Pulse Rate 82 86 Respiratory 15 Rate Blood Pressure 103/56 115/56 O2 Sat by Pulse 95 Oximetry - Lab 12/19/21 04:39 12/20/21 04:23 Most recent lab results Calcium 8.7 mg/dL (8.4-10.2) 12/20/21 04:23 Magnesium 2.30 mg/dL (1.7-2.3) 12/13/21 22:49 Medications & Allergies - Medications Allergies/Adverse Reactions: Allergies No Known Allergies Allergy (Verified 12/09/21 12:16) Home Medications: Home Medications Medication Instructions Recorded Confirmed Last Taken Type cephALEXin [Keflex] 500 mg PO Q6HR 7 Days #28 capsule 12/09/21 12/14/21 Unknown Rx Aspirin [[place] Aspirin EC] 81 mg PO QDAY 12/14/21 12/14/21 Unknown History Atorvastatin [Lipitor Tab] 80 mg PO QHS 12/14/21 12/14/21 Unknown History Dapagliflozin Propanediol [Farxiga] 10 mg PO QDAY 12/14/21 12/14/21 Unknown Hi story Insulin Detemir [Levemir VIAL] 25 unit SQ QHS 12/14/21 12/14/21 Unknown History Insulin Lispro [Admelog] 100 unit SQ ACHS 12/14/21 12/14/21 Unknown History Sertraline [Zoloft] 100 mg PO QDAY 12/14/21 12/14/21 Unknown History Tamsulosin [Flomax] 0.4 mg PO QDAY 12/14/21 12/14/21 Unknown History Torsemide [Demadex] 20 mg PO QDAY 12/14/21 12/14/21 Unknown History carvediloL [Coreg] 3.125 mg PO BID 12/14/21 12/14/21 Unknown History Active Medications: Generic Name Dose Route Start Last Admin Trade Name Freq PRN Reason Stop Dose Admin Acetaminophen 650 mg 12/14/21 00:30 12/19/21 06:01 Acetaminophen 325 Mg Tab PO 650 mg Q4H PRN Administration Pain MILD(1-3)/Fever >100.5/ROGERS Albuterol 2.5 mg 12/14/21 00:30 Albuterol 2.5 Mg/3 Ml Nebu IH Q3HRT PRN Shortness Of Breath Lipase/Protease/Amylase 1 each 12/17/21 11:46 Lipase 10,500/Protease 25,000/Amylase 43,750 (Units) Dr Mariee FEEDTUBE PRN PRN For Clogged Feeding Tube Ascorbic Acid 500 mg 12/14/21 10:00 12/20/21 10:02 Ascorbic Acid 500 Mg Tab PO 500 mg BID ALEXSANDRA Administration Aspirin 81 mg 12/14/21 10:00 12/20/21 10:02 Aspirin Ec 81 Mg Tab PO 81 mg QDAY ALEXSANDRA Administration Atorvastatin Calcium 80 mg 12/14/21 22:00 12/19/21 21:46 Atorvastatin 40 Mg Tab PO 80 mg QHS ALEXSANDRA Administration Carvedilol 3.125 mg 12/14/21 10:00 12/20/21 10:02 Carvedilol 3.125 Mg Tab PO 3.125 mg BID ALEXSANDRA Administration Cholecalciferol 1,000 unit 12/16/21 14:00 12/20/21 10:01 Cholecalciferol (Vit D3) 1000 Unit (25 Mcg) Tab PO 1,000 unit DAILY ALEXSANDRA Administration Clopidogrel Bisulfate 75 mg 12/17/21 10:00 12/20/21 10:02 Clopidogrel 75 Mg Tab PO 75 mg QDAY ALEXSANDRA Administration Dextrose 50 ml 12/14/21 00:30 Dextrose 50% In Water (25gm) 50 Ml Syringe IV Q30MIN PRN Hypoglycemia Protocol Famotidine 20 mg 12/17/21 10:00 12/20/21 10:02 Famotidine 20 Mg Tab PO 20 mg DAILY ALEXSANDRA Administration Heparin Sodium (Porcine) 5,000 unit 12/16/21 14:00 12/20/21 06:46 Heparin 5,000 Unit/1 Ml Vial SUB-Q 5,000 unit Q8HR ALEXSANDRA Administration Ceftriaxone Sodium 1 gm in 50 mls @ 100 mls/hr 12/19/21 11:00 12/20/21 10:05 Rocephin/Ns 1 Gm/50 Ml IV 100 mls/hr Q24H ALXESANDRA Administration Protocol Dextrose 1,000 mls @ 75 mls/hr 12/20/21 11:00 D5w IV DIRECT ALEXSANDRA Insulin Human Isoph/Insulin Regular 25 unit 12/20/21 17:00 Insulin Nph/Regular 70/30 Inj SUB-Q BIDDIAB ALEXSANDRA Insulin Human Lispro 0 unit 12/14/21 06:00 12/20/21 06:44 Insulin Lispro 100 Unit/Ml SUB-Q 3 unit Q6HR [facility] Administration Protocol Labetalol HCl 10 mg 12/14/21 00:30 Labetalol 20 Mg/4 Ml Inj IV Q5MIN PRN to maintain SBP < 180 Morphine Sulfate 2 mg 12/14/21 00:30 Morphine 2 Mg/1 Ml Inj IV Q4H PRN Pain, Moderate (4-6) Morphine Sulfate 4 mg 12/14/21 00:30 Morphine 4 Mg/1 Ml Inj IV Q4H PRN Pain , Severe (7-10) Ondansetron HCl 4 mg 12/14/21 00:30 Ondansetron 4 Mg/2 Ml Inj IV Q8H PRN Nausea And Vomiting Sertraline HCl 100 mg 12/14/21 10:00 12/20/21 10:02 Sertraline 100 Mg Tab PO 100 mg QDAY ALEXSANDRA Administration Simple Syrup 15 ml 12/17/21 11:46 Simple Syrup 15 Ml FEEDTUBE PRN PRN Hypoglycemia Simple Syrup 30 ml 12/17/21 11:46 Simple Syrup 15 Ml FEEDTUBE PRN PRN Hypoglycemia Sodium Bicarbonate 325 mg 12/17/21 11:46 Sodium Bicarbonate 325 Mg Tab FEEDTUBE PRN PRN For Clogged Feeding Tube Sodium Chloride 10 ml 12/14/21 10:00 12/20/21 10:02 Sodium Chloride 0.9% 10 Ml Flush Syringe IV 10 ml BID ALEXSANDRA Administration Sodium Chloride 10 ml 12/14/21 00:30 Sodium Chloride 0.9% 10 Ml Flush Syringe IV PRN PRN LINE FLUSH Tamsulosin HCl 0.4 mg 12/14/21 10:12/20/21 10:02 Tamsulosin 0.4 Mg Cap PO 0.4 mg QDAY ALEXSANDRA Administration Zinc Sulfate 220 mg 12/14/21 10:00 12/20/21 10:01 Zinc Sulfate 220 Mg Cap PO 220 mg BID ALEXSANDRA Administration
--- NOTE | 2021-12-20 11:03 | Progress Note ---
Assessment and Plan Patient is a 66-year-old male with past medical history of CVA, diabetes was brought to the emergency room because of altered mental status. Patient is was sent from [facility] after he was noted to be unresponsive approximately 2 hours ago. Per nursing the patient is normally talkative. EMS was called and found the patient to be hypoxic to 88% on room air and patient was placed on a nonrebreather. The patient is currently unresponsive with eyes open Case discussed with tele-neurologist Dr. Ha-given last known well time of 09: 00 patient is not a tPA candidate. As patient is bedbound he is not a candidate for thrombectomy. CTA shows occlusion of right carotid artery however intracranially there is no occlusion seen Imaging studies including a CT of the head showed There is occlusion of the right common carotid artery from its origin which extends to involve the entire right internal carotid artery with minimal retrograde flow in the distal right ICA. 2. Small age-indeterminate right rice radiata white matter lacunar infarctions. No other occlusion or significant stenosis. Chest x-ray shows no acute pathology. 12/15/21: At this time we will discontinue heparin drip until patient is seen by vascular surgery. MRI still pending, unsure if patient actually had a CVA would not want this to expand with the current heparin drip ordered. Patient does not show persistent hypoxia or in any acute respiratory distress at this time although on 2 L of oxygen with good sustained saturation. We will obtain a VQ scan at this time. I will also obtain nephrology consultation due to acute on chronic CKD creatinine checked on November showed a creatinine of 2.3 although this is close to our recent time and not sure what his underlying baseline is. Continue seizure precautions. Will await for neurology input for possible EEG to rule out status epilepticus. Aspiration precautions 12/16: Mental status remains unchanged and this is why unable to complete MRI as we cannot complete the screening process. Seen by vascular and recommended to continue medical management until mental status improves. Plan to repeat CT brain tomorrow in the morning as we cannot do MRI. Renal function continued to get worse, continue IV fluid monitor blood glucose. Hold diuretics, nephrology following. 12/17: Worsening renal failure with current creatinine is 4.2, mild acidosis, bicarbonate around 21. Initiate on TF, monitor ins/os. Most likely etiology of his renal failure appears to be due to radiocontrast exposure, hypoxemia, respiratory failure which likely resulted in acute tubular necrosis. cont to follow BMP, nephrology following 12/18: Cr slightly improved, Na 152 - will change fluid to 1/2NS, increase insulin dose to better control hyperglycemia, follow clinically 12/19. Sodium remains elevated, continue half-normal saline. UA suggestive for UTI initiated on empiric antibiotic, also ordered blood culture and urine culture. Creatinine trending down, follow BMP 12/20: Na level 162 today, change iv fluid to D5W, increase long acting insulin coverage, follow BMP Assessment and plan: -- UTI with sepsis, started on empiric antibiotics, ordered urine and blood culture -- Hypernatremia, continue half-normal saline, monitor BMP -- Acute metabolic encephalopathy Current Visit: Yes Status: Acute Plan to address problem: Admitted the patient to the medical telemetry. Acute metabolic encephalopathy secondary to CVA and MAURI. Aspirin 325 mg p.o. daily. Lipitor 40 mg p.o. daily. We do MRI of the brain and MRA of the brain and neck with and without contrast echocardiogram PT OT speech evaluation. Please consult neurology in the morning -- MAURI (acute kidney injury) with vasomotor nephropathy on CKD stage III -c reatinine worsening Current Visit: Yes Status: Acute Plan to address problem: Avoid nephrotoxic drug. Renally dose medication. Normal saline at the rate of 100 cc/h. BMP in the morning -- Diabetes type 2 Current Visit: Yes Status: Acute Plan to address problem: Accu-Chek every 6 hours with Humalog low-dose coverage. Diabetic education -- Lactic acidosis Current Visit: Yes Status: Acute Plan to address problem: Rocephin 2 g IV daily. Normal saline 100 mL/h. We will repeat the lactic acid. -- Pleural effusion Current Visit: Yes Status: Acute Plan to address problem: Oxygen via nasal cannula 3 L/min. DuoNeb via nebulizer every 4 hours. Albuterol via nebulizer every 4 hours as needed. We will monitor the patient closely. If needed will consult pulmonary -- tonic-clonic seizure , cont AED --Acute hypoxic respiratory failure on admission, braden from pleural effusion -- DVT prophylaxis Current Visit: Yes Status: Acute Plan to address problem: Heparin 5000 units subcu every 12 hours for DVT prophylaxis. Pepcid 20 mg IV every 12 hours for GI prophylaxis. Patient is a full code Subjective Date of service: 12/20/21 Interval history: Patient seen and examined. Medical records and medication list reviewed. No acute event overnight noted by the RN. patient remains confused Cr trending down, Na level remains elevated Continues to have low urine output Objective - Exam Narrative Exam: General appearance: Present: no acute distress, well-nourished, confused - EENT Eyes: Present: PERRL ENT: hearing intact, clear oral mucosa - Neck Neck: Present: supple, normal ROM - Respiratory Respiratory effort: normal Respiratory: bilateral: CTA - Cardiovascular Heart Sounds: Present: S1 & S2. Absent: rub, click - Extremities Extremities: pulses symmetrical, No edema Peripheral Pulses: within normal limits - Abdominal General gastrointestinal: Present: soft, non-tender, non-distended, normal bowel sounds Male genitourinary: Present: normal - Integumentary Integumentary: Present: clear, warm, dry - Musculoskeletal Musculoskeletal: Motor strength unable to fully examine. There is no flaccidity appreciated of bilateral upper extremity. - Psychiatric Psychiatric: Unable to assess - Neurologic Neurologic: Confused - Constitutional Vitals: Vital Signs - 12hr 12/20/21 12/20/21 12/20/21 00:00 03:57 07:37 Temperature 98.4 F 98.8 F Pulse Rate 86 86 Respiratory 16 15 Rate Blood Pressure 101/51 115/58 O2 Sat by Pulse 94 98 97 Oximetry 12/20/21 12/20/21 08:15 10:02 Temperature 99.4 F Pulse Rate 82 86 Respiratory 15 Rate Blood Pressure 103/56 115/56 O2 Sat by Pulse 95 Oximetry - Labs CBC & Chem 7: 12/21/21 05:38 12/21/21 05:38 Labs: Abnormal lab results 12/19/21 12/19/21 12/19/21 Range/Units 10:27 11:06 16:08 Sodium 159 H (137-145) mmol/L Potassium (3.6-5.0) mmol/L Chloride 124.8 H (98-107) mmol/L Carbon Dioxide 20 L (22-30) mmol/L BUN 97 H (9-20) mg/dL Creatinine 2.5 H (0.8-1.3) mg/dL Glucose 344 H (75-100) mg/dL POC Glucose 312 H 244 H (70-105) mg/dL 0612/20/21 12/20/21 Range/Units 00:09 04:23 05:24 Sodium 164 H* (137-145) mmol/L Potassium 3.3 L (3.6-5.0) mmol/L Chloride 127.9 H (98-107) mmol/L Carbon Dioxide (22-30) mmol/L BUN 82 H (9-20) mg/dL Creatinine 2.1 H (0.8-1.3) mg/dL Glucose 208 H (75-100) mg/dL POC Glucose 195 H 234 H (70-105) mg/dL HEART Score - HEART Score Troponin: Troponin T 0.062 ng/mL (0.00-0.029) H 12/13/21 22:49
[2021-12-20] MEDS: DEXTROSE 5% IN WATER 1,000 ML IV SCH (11:45)
[2021-12-21] MEDS: DEXTROSE 5% IN WATER 1,000 ML IV SCH (00:42)
[2021-12-21] MEDS: INSULIN LISPRO 100 UNIT/ML SUB-Q SCH ×4 (00:48→18:19)
[2021-12-21] MEDS: HEPARIN 5,000 UNIT/1 ML VIAL SUB-Q SCH ×3 (05:51→21:19)
[2021-12-21 06:25] LABS: Hematocrit 33.8 % (35.5-45.6); Hemoglobin 10.8 gm/dl (11.8-15.2)
[2021-12-21 06:40] LABS: Calcium 8.4 mg/dL (8.4-10.2)
--- NOTE | 2021-12-21 08:13 | Progress Note ---
Subjective Interval history: Assessment and plan are as follows #Acute kidney injury, patient creatinine has improved satisfactorily, with hydration alone, did not require renal placement therapy, felt to be Volume depleted currently does have a Vallecillo catheter, urine color appears to be much motion graphics artist at this time, Ultrasonogram showed bilateral echogenic kidneys hence underlying chronic kidney disease, Most likely etiology of renal failure appears to be resulting from radiocontrast exposure hypoxemia #Hypernatremia appears to be improving well continue with free water replacement at this time #Hypokalemia consider replacement and close follow-up to keep the potassium around 4.0 #Overall progressing well from renal standpoint, #Diabetes mellitus type 2 appears to be under fair control last hemoglobin A1c is around 7.6 If there are any renal related issues in regards to this patient please feel free to reach out without any hesitation at [phone] We'll continue to follow and make recommendation for renal standpoint. Progress note by: Jayjay Roger MD [address] [place] [id number] Tele [phone] [email or web address] Patient was seen today for follow-up of multiple renal related issues Remains encephalopathic Interdisciplinary notes that also reviewed Events of 24 hours vitals labs intake output medications were reviewed Past medical history: Reviewed Family history: Reviewed Social history: Reviewed Allergies: Reviewed Physical examination: Vitals: Reviewed HEENT: No pallor or icterus oral mucosa Appears to be dry Neck: Supple no JVD no thyromegaly Chest: Bilateral clear to auscultation anteriorly Heart: Regular rate and rhythm S1-S2 heard no S3-S4 Abdomen: Soft nontender no voluntary guarding rigidity rebound Extremity: Dry skin No significant edema Psychiatric: No evidence of agitation and aggression noted Dermatology: No petechial rashes Labs and x-rays: Reviewed from today 1 Objective - Vital Signs Vital signs: Vital Signs - 12hr 12/20/21 12/20/21 12/21/21 22:44 22:47 00:41 Temperature 98.6 F Pulse Rate 76 79 Respiratory 20 Rate Blood Pressure 116/53 O2 Sat by Pulse 96 97 Oximetry 12/21/21 03:22 Temperature 97.8 F Pulse Rate 65 Respiratory 18 Rate Blood Pressure 119/60 O2 Sat by Pulse 100 Oximetry - Lab 12/21/21 05:38 12/21/21 05:38 Most recent lab results Calcium 8.4 mg/dL (8.4-10.2) 12/21/21 05:38 Magnesium 2.30 mg/dL (1.7-2.3) 12/13/21 22:49 Medications & Allergies - Medications Allergies/Adverse Reactions: Allergies No Known Allergies Allergy (Verified 12/09/21 12:16) Home Medications: Home Medications Medication Instructions Recorded Confirmed Last Taken Type cephALEXin [Keflex] 500 mg PO Q6HR 7 Days #28 capsule 12/09/21 12/14/21 Unknown Rx Aspirin [[place] Aspirin EC] 81 mg PO QDAY 12/14/21 12/14/21 Unknown History Atorvastatin [Lipitor Tab] 80 mg PO QHS 12/14/21 12/14/21 Unknown History Dapagliflozin Propanediol [Farxiga] 10 mg PO QDAY 12/14/21 12/14/21 Unknown History Insulin Detemir [Levemir VIAL] 25 unit SQ QHS 12/14/21 12/14/21 Unknown History Insulin Lispro [Admelog] 100 unit SQ ACHS 12/14/21 12/14/21 Unknown History Sertraline [Zoloft] 100 mg PO QDAY 12/14/21 12/14/21 Unknown History Tamsulosin [Flomax] 0.4 mg PO QDAY 12/14/21 12/14/21 Unknown History Torsemide [Demadex] 20 mg PO QDAY 12/14/21 12/14/21 Unknown History carvediloL [Coreg] 3.125 mg PO BID 12/14/21 12/14/21 Unknown History Active Medications: Generic Name Dose Route Start Last Admin Trade Name Freq PRN Reason Stop Dose Admin Acetaminophen 650 mg 12/14/21 00:30 12/19/21 06:01 Acetaminophen 325 Mg Tab PO 650 mg Q4H PRN Administration Pain MILD(1-3)/Fever >100.5/ROGERS Albuterol 2.5 mg 12/14/21 00:30 Albuterol 2.5 Mg/3 Ml Nebu IH Q3HRT PRN Shortness Of Breath Lipase/Protease/Amylase 1 each 12/17/21 11:46 Lipase 10,500/Protease 25,000/Amylase 43,750 (Units) Dr Mariee FEEDTUBE PRN PRN For Clogged Feeding Tube Ascorbic Acid 500 mg 12/14/21 10:00 12/20/21 21:17 Ascorbic Acid 500 Mg Tab PO 500 mg BID ALEXSANDRA Administration Aspirin 81 mg 12/14/21 10:00 12/20/21 10:02 Aspirin Ec 81 Mg Tab PO 81 mg QDAY ALEXSANDRA Administration Atorvastatin Calcium 80 mg 12/14/21 22:00 12/20/21 21:17 Atorvastatin 40 Mg Tab PO 80 mg QHS ALEXSANDRA Administration Carvedilol 3.125 mg 12/14/21 10:00 12/20/21 21:17 Carvedilol 3.125 Mg Tab PO 3.125 mg BID ALEXSANDRA Administration Cholecalciferol 1,000 unit 12/16/21 14:00 12/20/21 10:01 Cholecalciferol (Vit D3) 1000 Unit (25 Mcg) Tab PO 1,000 unit DAILY ALEXSANDRA Administration Clopidogrel Bisulfate 75 mg 12/17/21 10:00 12/20/21 10:02 Clopidogrel 75 Mg Tab PO 75 mg QDAY ALEXSANDRA Administration Dextrose 50 ml 12/14/21 00:30 Dextrose 50% In Water (25gm) 50 Ml Syringe IV Q30MIN PRN Hypoglycemia Protocol Famotidine 20 mg 12/17/21 10:00 12/20/21 10:02 Famotidine 20 Mg Tab PO 20 mg DAILY ALEXSANDRA Administration Heparin Sodium (Porcine) 5,000 unit 12/16/21 14:00 12/21/21 05:51 Heparin 5,000 Unit/1 Ml Vial SUB-Q 5,000 unit Q8HR ALEXSANDRA Administration Ceftriaxone Sodium 1 gm in 50 mls @ 100 mls/hr 12/19/21 11:00 12/20/21 10:05 Rocephin/Ns 1 Gm/50 Ml IV 100 mls/hr Q24H ALEXSANDRA Administration Protocol Dextrose 1,000 mls @ 75 mls/hr 12/20/21 11:00 12/21/21 00:42 D5w IV 75 mls/hr DIRECT ALEXSANDRA Administration Insulin Human Isoph/Insulin Regular 25 unit 12/20/21 17:00 12/20/21 17:51 Insulin Nph/Regular 70/30 Inj SUB-Q 25 unit BIDDIAB ALEXSANDRA Administration Insulin Human Lispro 0 unit 12/14/21 06:00 12/21/21 06:41 Insulin Lispro 100 Unit/Ml SUB-Q 4 unit Q6HR ALEXSANDRA Administration Protocol Labetalol HCl 10 mg 12/14/21 00:30 Labetalol 20 Mg/4 Ml Inj IV Q5MIN PRN to maintain SBP < 180 Morphine Sulfate 2 mg 12/14/21 00:30 Morphine 2 Mg/1 Ml Inj IV Q4H PRN Pain, Moderate (4-6) Morphine Sulfate 4 mg 12/14/21 00:30 Morphine 4 Mg/1 Ml Inj IV Q4H PRN Pain , Severe (7-10) Ondansetron HCl 4 mg 12/14/21 00:30 Ondansetron 4 Mg/2 Ml Inj IV Q8H PRN Nausea And Vomiting Sertraline HCl 100 mg 12/14/21 10:00 12/20/21 10:02 Sertraline 100 Mg Tab PO 100 mg QDAY ALEXSANDRA Administration Simple Syrup 15 ml 12/17/21 11:46 Simple Syrup 15 Ml FEEDTUBE PRN PRN Hypoglycemia Simple Syrup 30 ml 12/17/21 11:46 Simple Syrup 15 Ml FEEDTUBE PRN PRN Hypoglycemia Sodium Bicarbonate 325 mg 12/17/21 11:46 Sodium Bicarbonate 325 Mg Tab FEEDTUBE PRN PRN For Clogged Feeding Tube Sodium Chloride 10 ml 12/14/21 10:00 12/20/21 21:18 Sodium Chloride 0.9% 10 Ml Flush Syringe IV 10 ml BID ALEXSANDRA Administration Sodium Chloride 10 ml 12/14/21 00:30 Sodium Chloride 0.9% 10 Ml Flush Syringe IV PRN PRN LINE FLUSH Tamsulosin HCl 0.4 mg 12/14/21 10:00 12/20/21 10:02 Tamsulosin 0.4 Mg Cap PO 0.4 mg QDAY ALEXSANDRA Administration Zinc Sulfate 220 mg 12/14/21 10:00 12/20/21 21:17 Zinc Sulfate 220 Mg Cap PO 220 mg BID ALEXSANDRA Administration
[2021-12-21] MEDS: INSULIN NPH/REGULAR 70/30 INJ SUB-Q SCH ×2 (08:18→17:40)
[2021-12-21] MEDS: SERTRALINE 100 MG TAB PO SCH (10:32)
[2021-12-21] MEDS: cefTRIAXone/NS 1 GM/50 ML 1 GM/50 ML BAG IV SCH (10:32)
[2021-12-21] MEDS: ASPIRIN EC 81 MG TAB PO SCH (10:32)
[2021-12-21] MEDS: FAMOTIDINE 20 MG TAB PO SCH (10:32)
[2021-12-21] MEDS: CLOPIDOGREL 75 MG TAB PO SCH (10:32)
[2021-12-21] MEDS: CHOLECALCIFEROL (VIT D3) 1000 UNIT (25 mcg) TAB PO SCH (10:32)
[2021-12-21] MEDS: carvediloL 3.125 MG TAB PO SCH ×2 (10:33→22:56)
[2021-12-21] MEDS: ASCORBIC ACID 500 MG TAB PO SCH ×2 (10:33→21:19)
[2021-12-21] MEDS: TAMSULOSIN 0.4 MG CAP PO SCH (10:33)
[2021-12-21] MEDS: ZINC SULFATE 220 MG CAP PO SCH ×2 (10:33→21:18)
--- NOTE | 2021-12-21 13:41 | Progress Note ---
Assessment and Plan Patient is a 66-year-old male with past medical history of CVA, diabetes was brought to the emergency room because of altered mental status. Patient is was sent from [facility] after he was noted to be unresponsive approximately 2 hours ago. Per nursing the patient is normally talkative. EMS was called and found the patient to be hypoxic to 88% on room air and patient was placed on a nonrebreather. The patient is currently unresponsive with eyes open Case discussed with tele-neurologist Dr. Ha-given last known well time of 09: 00 patient is not a tPA candidate. As patient is bedbound he is not a candidate for thrombectomy. CTA shows occlusion of right carotid artery however intracranially there is no occlusion seen Imaging studies including a CT of the head showed There is occlusion of the right common carotid artery from its origin which extends to involve the entire right internal carotid artery with minimal retrograde flow in the distal right ICA. 2. Small age-indeterminate right rice radiata white matter lacunar infarctions. No other occlusion or significant stenosis. Chest x-ray shows no acute pathology. 12/15/21: At this time we will discontinue heparin drip until patient is seen by vascular surgery. MRI still pending, unsure if patient actually had a CVA would not want this to expand with the current heparin drip ordered. Patient does not show persistent hypoxia or in any acute respiratory distress at this time although on 2 L of oxygen with good sustained saturation. I will also obtain nephrology consultation due to acute on chronic CKD creatinine checked on November showed a creatinine of 2.3 although this is close to our recent time and not sure what his underlying baseline is. Continue seizure precautions. Will await for neurology input for possible EEG to rule out status epilepticus. Aspiration precautions. We will obtain a VQ scan at this time: Only perfusion study done, Ventilation study could not be done, its possible there may be a small clot, in anycase will discuss with nephrology if patient can get contrast for CTA. Hold off to heparin drip for now. 12/16: Mental status remains unchanged and this is why unable to complete MRI as we cannot complete the screening process. Seen by vascular and recommended to continue medical management until mental status improves. Plan to repeat CT brain tomorrow in the morning as we cannot do MRI. Renal function continued to get worse, continue IV fluid monitor blood glucose. Hold diuretics, nephrology following. 12/17: Worsening renal failure with current creatinine is 4.2, mild acidosis, bicarbonate around 21. Initiate on TF, monitor ins/os. Most likely etiology of his renal failure appears to be due to radiocontrast exposure, hypoxemia, respiratory failure which likely resulted in acute tubular necrosis. cont to follow BMP, nephrology following 12/18: Cr slightly improved, Na 152 - will change fluid to 1/2NS, increase insulin dose to better control hyperglycemia, follow clinically 12/19. Sodium remains elevated, continue half-normal saline. UA suggestive for UTI initiated on empiric antibiotic, also ordered blood culture and urine culture. Creatinine trending down, follow BMP 12/20: Na level 162 today, change iv fluid to D5W, increase long acting insulin coverage, follow BMP 12/21: Na and Cr improving, cont d5W and free water, follow BMP. Mental status improving. Assessment and plan: -- UTI with sepsis, started on empiric antibiotics, ordered urine and blood culture -- Hypernatremia, continue half-normal saline, monitor BMP -- Acute metabolic encephalopathy Likely possible acute CVA Admitted the patient to the medical telemetry. Acute metabolic encephalopathy secondary to CVA and MAURI. Aspirin 325 mg p.o. daily. Lipitor 40 mg p.o. daily. S/p CT head with CTA head and neck MRI brain could not be done as patient history could not be completed Ordered echocardiogram/ PT OT speech evaluation. Neurology consulted -- MAURI (acute kidney injury) with vasomotor nephropathy on CKD stage III - creatinine worsening Avoid nephrotoxic drug. Renally dose medication. Renal function now improving -- Diabetes type 2 Accu-Chek every 6 hours with Humalog low-dose coverage. Diabetic education -- Lactic acidosis, improved with hydration -- Pleural effusion Current Visit: Yes Status: Acute Plan to address problem: Oxygen via nasal cannula 3 L/min. DuoNeb via nebulizer every 4 hours. Albuterol via nebulizer every 4 hours as needed. We will monitor the patient closely. If needed will consult pulmonary --Acute hypoxic respiratory failure on admission, likely from pleural effusion --Abnormal VQ scan, holding off heparin drip for now as patient might have acute CVA Need repeat CTA chest when renal function allows to confirm the diagnosis of PE Lower extremity venous Doppler is negative -- DVT prophylaxis Heparin 5000 units subcu every 12 hours for DVT prophylaxis. Pepcid 20 mg IV every 12 hours for GI prophylaxis. Patient is a full code Subjective Date of service: 12/21/21 Interval history: Patient seen and examined. Medical records and medication list reviewed. No acute event overnight noted by the RN. patient appears more alert today but still very weak Cr and sodium level trending down Continues to have low urine output Objective - Exam Narrative Exam: General appearance: Present: no acute distress, well-nourished, patient more alert today - EENT Eyes: Present: PERRL ENT: hearing intact, clear oral mucosa - Neck Neck: Present: supple, normal ROM - Respiratory Respiratory effort: normal Respiratory: bilateral: CTA - Cardiovascular Heart Sounds: Present: S1 & S2. Absent: rub, click - Extremities Extremities: pulses symmetrical, No edema Peripheral Pulses: within normal limits - Abdominal General gastrointestinal: Present: soft, non-tender, non-distended, normal bowel sounds Male genitourinary: Present: normal - Integumentary Integumentary: Present: clear, warm, dry - Musculoskeletal Musculoskeletal: Motor strength unable to fully examine. There is no flaccidity appreciated of bilateral upper extremity. - Psychiatric Psychiatric: Unable to assess - Neurologic Neurologic: More alert, oriented to self only - Constitutional Vitals: Vital Signs - 12hr 12/21/21 12/21/21 12/21/21 03:22 08:26 10:00 Temperature 97.8 F 98.6 F Pulse Rate 65 68 Respiratory 18 20 Rate Blood Pressure 119/60 118/48 O2 Sat by Pulse 100 100 96 Oximetry 12/21/21 10:33 Temperature Pulse Rate 70 Respiratory Rate Blood Pressure O2 Sat by Pulse Oximetry - Labs CBC & Chem 7: 12/21/21 05:38 12/22/21 05:22 Labs: Abnormal lab results 12/20/21 12/21/21 12/21/21 Range/Units 16:33 00:05 05:38 Hgb 10.8 L (11.8-15.2) gm/dl Hct 33.8 L D (35.5-45.6) % Plt Count 52 L (140-440) K/mm3 Sodium (137-145) mmol/L Potassium (3.6-5.0) mmol/L Chloride (98-107) mmol/L BUN (9-20) mg/dL Creatinine (0.8-1.3) mg/dL Glucose (75-100) mg/dL POC Glucose 214 H 172 H (70-105) mg/dL 12/21/21 12/21/21 12/21/21 Range/Units 05:38 06:39 12:12 Hgb (11.8-15.2) gm/dl Hct (35.5-45.6) % Plt Count (140-440) K/mm3 Sodium 152 H D (137-145) mmol/L Potassium 3.1 L (3.6-5.0) mmol/L Chloride 119.8 H (98-107) mmol/L BUN 58 H (9-20) mg/dL Creatinine 1.4 H (0.8-1.3) mg/dL Glucose 241 H (75-100) mg/dL POC Glucose 276 H 160 H (70-105) mg/dL HEART Score - HEART Score Troponin: Troponin T 0.062 ng/mL (0.00-0.029) H 12/13/21 22:49
[2021-12-21] MEDS ORDERED: POTASSIUM CHLORIDE 20 MEQ PACKET FEEDTUBE SCH (17:22)
[2021-12-21] MEDS ORDERED: DEXTROSE 5% IN WATER 1,000 ML IV SCH (17:22)
[2021-12-22] MEDS: INSULIN LISPRO 100 UNIT/ML SUB-Q SCH ×4 (00:40→17:32)
[2021-12-22 06:25] LABS: BUN/Creatinine Ratio 37; Blood Urea Nitrogen 44 mg/dL (9-20); Calcium 8.4 mg/dL (8.4-10.2); Hemolysis Index 10
[2021-12-22] MEDS: HEPARIN 5,000 UNIT/1 ML VIAL SUB-Q SCH ×3 (07:00→21:03)
[2021-12-22] MEDS: INSULIN NPH/REGULAR 70/30 INJ SUB-Q SCH ×2 (08:14→17:33)
--- NOTE | 2021-12-22 09:20 | Progress Note ---
Assessment and Plan Impression: * Acute kidney injury secondary to volume depletion/dehydration * Hypernatremia * Hypokalemia Plan: * Will change IVF to D5W w/ 20meq KCl * Continue Free H20 w/ TF - 300ml [id number] * KCl 20meq PEG/NGT BID x 2 doses * Dose medications for renal function * Avoid potential nephrotoxins Subjective Date of service: 12/22/21 Interval history: No acute events overnight Objective - Vital Signs Vital signs: Vital Signs - 12hr 12/21/21 12/21/21 12/21/21 22:00 22:45 22:56 Temperature 97.7 F Pulse Rate 67 67 Respiratory 16 Rate Blood Pressure 116/56 116/56 O2 Sat by Pulse 97 96 Oximetry 12/22/21 12/22/21 03:43 07:34 Temperature 98.6 F 98.5 F Pulse Rate 64 65 Respiratory 16 Rate Blood Pressure 108/47 115/43 O2 Sat by Pulse 89 97 Oximetry - General Appearance General appearance: well-developed, well-nourished EENT: ATNC Respiratory: Present: Clear to Ascultation Cardiology: regular, S1S2 Gastrointestinal: normal, no distended Integumentary: warm and dry - Lab 12/21/21 05:38 12/22/21 05:22 Most recent lab results Calcium 8.4 mg/dL (8.4-10.2) 12/22/21 05:22 Magnesium 2.30 mg/dL (1.7-2.3) 12/13/21 22:49 Medications & Allergies - Medications Allergies/Adverse Reactions: Allergies No Known Allergies Allergy (Verified 12/09/21 12:16) Home Medications: Home Medications Medication Instructions Recorded Confirmed Last Taken Type cephALEXin [Keflex] 500 mg PO Q6HR 7 Days #28 capsule 12/09/21 12/14/21 Unknown Rx Aspirin [[place] Aspirin EC] 81 mg PO QDAY 12/14/21 12/14/21 Unknown History Atorvastatin [Lipitor Tab] 80 mg PO QHS 12/14/21 12/14/21 Unknown History Dapagliflozin Propanediol [Farxiga] 10 mg PO QDAY 12/14/21 12/14/21 Unknown History Insulin Detemir [Levemir VIAL] 25 unit SQ QHS 12/14/21 12/14/21 Unknown History Insulin Lispro [Admelog] 100 unit SQ ACHS 12/14/21 12/14/21 Unknown History Sertraline [Zoloft] 100 mg PO QDAY 12/14/21 12/14/21 Unknown History Tamsulosin [Flomax] 0.4 mg PO QDAY 12/14/21 12/14/21 Unknown History Torsemide [Demadex] 20 mg PO QDAY 12/14/21 12/14/21 Unknown History carvediloL [Coreg] 3.125 mg PO BID 12/14/21 12/14/21 Unknown History Active Medications: Generic Name Dose Route Start Last Admin Trade Name Freq PRN Reason Stop Dose Admin Acetaminophen 650 mg 12/14/21 00:30 12/19/21 06:01 Acetaminophen 325 Mg Tab PO 650 mg Q4H PRN Administration Pain MILD(1-3)/Fever >100.5/ROGERS Albuterol 2.5 mg 12/14/21 00:30 Albuterol 2.5 Mg/3 Ml Nebu IH Q3HRT PRN Shortness Of Breath Lipase/Protease/Amylase 1 each 12/17/21 11:46 Lipase 10,500/Protease 25,000/Amylase 43,750 (Units) Dr Mariee FEEDTUBE PRN PRN For Clogged Feeding Tube Ascorbic Acid 500 mg 12/14/21 10:00 12/21/21 21:19 Ascorbic Acid 500 Mg Tab PO 500 mg BID ALEXSANDRA Administration Aspirin 81 mg 12/14/21 10:00 12/21/21 10:32 Aspirin Ec 81 Mg Tab PO 81 mg QDAY ALEXSANDRA Administration Atorvastatin Calcium 80 mg 12/14/21 22:00 12/21/21 21:18 Atorvastatin 40 Mg Tab PO 80 mg QHS ALEXSANDRA Administration Carvedilol 3.125 mg 12/14/21 10:00 12/21/21 22:56 Carvedilol 3.125 Mg Tab PO 3.125 mg BID ALEXSANDRA Administration Cholecalciferol 1,000 unit 12/16/21 14:00 12/21/21 10:32 Cholecalciferol (Vit D3) 1000 Unit (25 Mcg) Tab PO 1,000 unit DAILY ALEXSANDRA Administration Clopidogrel Bisulfate 75 mg 12/17/21 10:00 12/21/21 10:32 Clopidogrel 75 Mg Tab PO 75 mg QDAY ALEXSANDRA Administration Dextrose 50 ml 12/14/21 00:30 Dextrose 50% In Water (25gm) 50 Ml Syringe IV Q30MIN PRN Hypoglycemia Protocol Famotidine 20 mg 12/17/21 10:00 12/21/21 10:32 Famotidine 20 Mg Tab PO 20 mg DAILY ALEXSANDRA Administration Heparin Sodium (Porcine) 5,000 unit 12/16/21 14:00 12/22/21 07:00 Heparin 5,000 Unit/1 Ml Vial SUB-Q 5,000 unit Q8HR ALEXSANDRA Administration Ceftriaxone Sodium 1 gm in 50 mls @ 100 mls/hr 12/19/21 11:00 12/21/21 10:32 Rocephin/Ns 1 Gm/50 Ml IV 100 mls/hr Q24H ALEXSANDRA Administration Protocol Dextrose 1,000 mls @ 42 mls/hr 12/21/21 17:22 12/22/21 02:00 D5w IV 42 mls/hr DIRECT ALEXSANDRA Administration Insulin Human Isoph/Insulin Regular 25 unit 12/20/21 17:00 12/22/21 08:14 Insulin Nph/Regular 70/30 Inj SUB-Q 25 unit BIDDIAB ALEXSANDRA Administration Insulin Human Lispro 0 unit 12/14/21 06:00 12/22/21 07:00 Insulin Lispro 100 Unit/Ml SUB-Q 2 unit Q6HR ALEXSANDRA Administration Protocol Labetalol HCl 10 mg 12/14/21 00:30 Labetalol 20 Mg/4 Ml Inj IV Q5MIN PRN to maintain SBP < 180 Morphine Sulfate 2 mg 12/14/21 00:30 Morphine 2 Mg/1 Ml Inj IV Q4H PRN Pain, Moderate (4-6) Morphine Sulfate 4 mg 12/14/21 00:30 Morphine 4 Mg/1 Ml Inj IV Q4H PRN Pain , Severe (7-10) Ondansetron HCl 4 mg 12/14/21 00:30 Ondansetron 4 Mg/2 Ml Inj IV Q8H PRN Nausea And Vomiting Sertraline HCl 100 mg 12/14/21 10:00 12/21/21 10:32 Sertraline 100 Mg Tab PO 100 mg QDAY ALEXSANDRA Administration Simple Syrup 15 ml 12/17/21 11:46 Simple Syrup 15 Ml FEEDTUBE PRN PRN Hypoglycemia Simple Syrup 30 ml 12/17/21 11:46 Simple Syrup 15 Ml FEEDTUBE PRN PRN Hypoglycemia Sodium Bicarbonate 325 mg 12/17/21 11:46 Sodium Bicarbonate 325 Mg Tab FEEDTUBE PRN PRN For Clogged Feeding Tube Sodium Chloride 10 ml 12/14/21 10:00 12/21/21 21:20 Sodium Chloride 0.9% 10 Ml Flush Syringe IV 10 ml BID ALEXSANDRA Administration Sodium Chloride 10 ml 12/14/21 00:30 Sodium Chloride 0.9% 10 Ml Flush Syringe IV PRN PRN LINE FLUSH Tamsulosin HCl 0.4 mg 12/14/21 10:00 12/21/21 10:33 Tamsulosin 0.4 Mg Cap PO Not Given QDAY ALEXSANDRA Zinc Sulfate 220 mg 12/14/21 10:00 12/21/21 21:18 Zinc Sulfate 220 Mg Cap PO 220 mg BID ALEXSANDRA Administration
[2021-12-22] MEDS: FLUCONAZOLE 100 MG TAB PO SCH (10:30)
[2021-12-22] MEDS: CHOLECALCIFEROL (VIT D3) 1000 UNIT (25 mcg) TAB PO SCH (10:30)
[2021-12-22] MEDS: FAMOTIDINE 20 MG TAB PO SCH (10:30)
[2021-12-22] MEDS: ASCORBIC ACID 500 MG TAB PO SCH ×2 (10:30→21:02)
[2021-12-22] MEDS: CLOPIDOGREL 75 MG TAB PO SCH (10:30)
[2021-12-22] MEDS: ASPIRIN EC 81 MG TAB PO SCH (10:30)
[2021-12-22] MEDS: SERTRALINE 100 MG TAB PO SCH (10:30)
[2021-12-22] MEDS: POTASSIUM CHLORIDE 20 MEQ PACKET FEEDTUBE SCH ×2 (10:30→21:02)
[2021-12-22] MEDS: POTASSIUM CHLORIDE 20 MEQ in DEXTROSE 5% IN WATER 1,000 ML IV SCH (10:30)
[2021-12-22] MEDS: carvediloL 3.125 MG TAB PO SCH ×2 (10:31→22:35)
[2021-12-22] MEDS: ZINC SULFATE 220 MG CAP PO SCH ×2 (10:31→21:02)
[2021-12-22] MEDS: TAMSULOSIN 0.4 MG CAP PO SCH (10:33)
--- NOTE | 2021-12-22 15:37 | Progress Note ---
Assessment and Plan Patient is a 66-year-old male with past medical history of CVA, diabetes was brought to the emergency room because of altered mental status. Patient is was sent from [facility] after he was noted to be unresponsive approximately 2 hours ago. Per nursing the patient is normally talkative. EMS was called and found the patient to be hypoxic to 88% on room air and patient was placed on a nonrebreather. The patient is currently unresponsive with eyes open Case discussed with tele-neurologist Dr. Ha-given last known well time of 09: 00 patient is not a tPA candidate. As patient is bedbound he is not a candidate for thrombectomy. CTA shows occlusion of right carotid artery however intracranially there is no occlusion seen Imaging studies including a CT of the head showed There is occlusion of the right common carotid artery from its origin which extends to involve the entire right internal carotid artery with minimal retrograde flow in the distal right ICA. 2. Small age-indeterminate right rice radiata white matter lacunar infarctions. No other occlusion or significant stenosis. Chest x-ray shows no acute pathology. 12/15/21: At this time we will discontinue heparin drip until patient is seen by vascular surgery. MRI still pending, unsure if patient actually had a CVA would not want this to expand with the current heparin drip ordered. Patient does not show persistent hypoxia or in any acute respiratory distress at this time although on 2 L of oxygen with good sustained saturation. I will also obtain nephrology consultation due to acute on chronic CKD creatinine checked on November showed a creatinine of 2.3 although this is close to our recent time and not sure what his underlying baseline is. Continue seizure precautions. Will await for neurology input for possible EEG to rule out status epilepticus. Aspiration precautions. We will obtain a VQ scan at this time: Only perfusion study done, Ventilation study could not be done, its possible there may be a small clot, in anycase will discuss with nephrology if patient can get contrast for CTA. Hold off to heparin drip for now. 12/16: Mental status remains unchanged and this is why unable to complete MRI as we cannot complete the screening process. Seen by vascular and recommended to continue medical management until mental status improves. Plan to repeat CT brain tomorrow in the morning as we cannot do MRI. Renal function continued to get worse, continue IV fluid monitor blood glucose. Hold diuretics, nephrology following. 12/17: Worsening renal failure with current creatinine is 4.2, mild acidosis, bicarbonate around 21. Initiate on TF, monitor ins/os. Most likely etiology of his renal failure appears to be due to radiocontrast exposure, hypoxemia, respiratory failure which likely resulted in acute tubular necrosis. cont to follow BMP, nephrology following 12/18: Cr slightly improved, Na 152 - will change fluid to 1/2NS, increase insulin dose to better control hyperglycemia, follow clinically 12/19. Sodium remains elevated, continue half-normal saline. UA suggestive for UTI initiated on empiric antibiotic, also ordered blood culture and urine culture. Creatinine trending down, follow BMP 12/20: Na level 162 today, change iv fluid to D5W, increase long acting insulin coverage, follow BMP 12/21: Na and Cr improving, cont d5W and free water, follow BMP. Mental status improving. 12/22: Sodium and creatinine level continue to improve. Creatinine 1.2 and sodium 151 today. Potassium noted to be low. Change fluid to D5W with KCl. Follow BMP. Mental function improving. Patient remains on supplemental O2. Need to follow-up with the legal recruiter for CTA chest: VQ scan obtained on admission showed intermediate probability for PE even though lower extremity venous Doppler was negative. Heparin drip has been on hold due to acute CVA. Assessment and plan: -- UTI with sepsis, started on empiric antibiotics, ordered urine and blood culture -- Hypernatremia, continue half-normal saline, monitor BMP -- Acute metabolic encephalopathy Likely possible acute CVA Admitted the patient to the medical telemetry. Acute metabolic encephalopathy secondary to CVA, urosepsis and MAURI. Aspirin 325 mg p.o. daily. Lipitor 40 mg p.o. daily. S/p CT head with CTA head and neck MRI brain could not be done as patient history could not be completed Ordered echocardiogram/ PT OT speech evaluation. Neurology consulted -- MAURI (acute kidney injury) with vasomotor nephropathy on CKD stage III - creatinine worsening Avoid nephrotoxic drug. Renally dose medication. Renal function now improving -- Diabetes type 2 Accu-Chek every 6 hours with Humalog low-dose coverage. Diabetic education -- Lactic acidosis, improved with hydration -- Pleural effusion Oxygen via nasal cannula 3 L/min. DuoNeb via nebulizer every 4 hours. Albuterol via nebulizer every 4 hours as needed. We will monitor the patient closely. If needed will consult pulmonary --Acute hypoxic respiratory failure on admission, likely from pleural effusion --Abnormal VQ scan, holding off heparin drip for now as patient might have acute CVA Need repeat CTA chest when renal function allows to confirm the diagnosis of PE Lower extremity venous Doppler is negative -- DVT prophylaxis Heparin 5000 units subcu every 12 hours for DVT prophylaxis. Pepcid 20 mg IV every 12 hours for GI prophylaxis. Patient is a full code Subjective Date of service: 12/22/21 Interval history: Patient seen and examined. Medical records and medication list reviewed. No acute event overnight noted by the RN. patient appears more alert today but still very weak Cr and sodium level trending down Continues to have low urine output Objective - Exam Narrative Exam: General appearance: Present: no acute distress, well-nourished, patient more alert today - EENT Eyes: Present: PERRL ENT: hearing intact, clear oral mucosa - Neck Neck: Present: supple, normal ROM - Respiratory Respiratory effort: normal Respiratory: bilateral: CTA - Cardiovascular Heart Sounds: Present: S1 & S2. Absent: rub, click - Extremities Extremities: pulses symmetrical, No edema Peripheral Pulses: within normal limits - Abdominal General gastrointestinal: Present: soft, non-tender, non-distended, normal bowel sounds Male genitourinary: Present: normal - Integumentary Integumentary: Present: clear, warm, dry - Musculoskeletal Musculoskeletal: Motor strength unable to fully examine. There is no flaccidity appreciated of bilateral upper extremity. - Psychiatric Psychiatric: Unable to assess - Neurologic Neurologic: More alert, oriented to self only - Constitutional Vitals: Vital Signs - 12hr 12/22/21 12/22/21 12/22/21 03:43 07:34 10:00 Temperature 98.6 F 98.5 F Pulse Rate 64 65 Respiratory 16 Rate Blood Pressure 108/47 115/43 O2 Sat by Pulse 89 97 97 Oximetry 12/22/21 12/22/21 10:31 14:00 Temperature Pulse Rate 68 68 Respiratory Rate Blood Pressure O2 Sat by Pulse Oximetry - Labs CBC & Chem 7: 12/21/21 05:38 12/22/21 05:22 Labs: Abnormal lab results 12/21/21 12/21/21 12/22/21 Range/Units 16:30 23:16 03:50 Sodium (137-145) mmol/L Potassium (3.6-5.0) mmol/L Chloride (98-107) mmol/L BUN (9-20) mg/dL Glucose (75-100) mg/dL POC Glucose 127 H 118 H 137 H (70-105) mg/dL 12/22/21 12/22/21 Range/Units 05:22 11:45 Sodium 151 H (137-145) mmol/L Potassium 3.2 L (3.6-5.0) mmol/L Chloride 117.9 H (98-107) mmol/L BUN 44 H (9-20) mg/dL Glucose 170 H (75-100) mg/dL POC Glucose 164 H (70-105) mg/dL HEART Score - HEART Score Troponin: Troponin T 0.062 ng/mL (0.00-0.029) H 12/13/21 22:49
--- NOTE | 2021-12-22 16:56 | XRay Report ---
CHEST 1 VIEW 12/22/2021 3:45 PM INDICATION / CLINICAL INFORMATION: pleural effusion. COMPARISON: 12/15/2021. FINDINGS: SUPPORT DEVICES: None. HEART / MEDIASTINUM: Stable. LUNGS / PLEURA: Pleural thickening remains left base. No pneumothorax. ADDITIONAL FINDINGS: No significant additional findings. IMPRESSION: Stable chest. No acute abnormality. Signer Name: Vladislav Gonzales MD Signed: 12/22/2021 4:51 PM Workstation Name: [id number]
[2021-12-23] MEDS: POTASSIUM CHLORIDE 20 MEQ in DEXTROSE 5% IN WATER 1,000 ML IV SCH ×2 (03:12→22:39)
[2021-12-23] MEDS: HEPARIN 5,000 UNIT/1 ML VIAL SUB-Q SCH ×3 (05:11→21:40)
[2021-12-23 05:29] LABS: Hematocrit 33.9 % (35.5-45.6); Hemoglobin 10.6 gm/dl (11.8-15.2); Mean Corpuscular HGB Conc 31 % (32-34); Mean Corpuscular Volume 82 fl (84-94); Platelet Count 77 K/mm3 (140-440); Red Blood Count 4.14 M/mm3 (3.65-5.03); Red Cell Distribution Width 20.3 % (13.2-15.2)
[2021-12-23 05:49] LABS: BUN/Creatinine Ratio 33; Blood Urea Nitrogen 33 mg/dL (9-20); Calcium 8.3 mg/dL (8.4-10.2); Hemolysis Index 13
[2021-12-23 06:25] LABS: Anisocytosis 1+; Basophils % (Manual) 0 % (0.0-1.8); Hypochromasia 1+; Total Cells Counted 100
[2021-12-23 06:26] LABS: Platelet Estimate Consistent w Auto
--- NOTE | 2021-12-23 08:37 | Progress Note ---
Assessment and Plan Impression: * Acute kidney injury secondary to volume depletion/dehydration * Hypernatremia * Hypokalemia Plan: * Continue D5W w/ 20meq KCl * Continue Free H20 w/ TF - 300ml [id number] * Replete lytes prn * Dose medications for renal function * Avoid potential nephrotoxins Subjective Date of service: 12/23/21 Interval history: Patient has no complaints. Objective - Vital Signs Vital signs: Vital Signs - 12hr 12/22/21 12/22/21 12/22/21 22:00 22:35 23:21 Temperature 99.0 F Pulse Rate 75 66 Respiratory 16 Rate Blood Pressure 109/45 96/36 O2 Sat by Pulse 97 97 Oximetry 12/23/21 04:54 Temperature 97.5 F L Pulse Rate 66 Respiratory 18 Rate Blood Pressure 121/47 O2 Sat by Pulse 96 Oximetry - General Appearance General appearance: well-developed, well-nourished EENT: ATNC Respiratory: Present: Clear to Ascultation Cardiology: regular, S1S2 Gastrointestinal: no tenderness, no distended Integumentary: warm and dry Musculoskeletal: other Psychiatric: cooperative - Lab 12/23/21 04:52 12/23/21 04:52 Most recent lab results Calcium 8.3 mg/dL (8.4-10.2) L 12/23/21 04:52 Magnesium 2.30 mg/dL (1.7-2.3) 12/13/21 22:49 Medications & Allergies - Medications Allergies/Adverse Reactions: Allergies No Known Allergies Allergy (Verified 12/09/21 12:16) Home Medications: Home Medications Medication Instructions Recorded Confirmed Last Taken Type cephALEXin [Keflex] 500 mg PO Q6HR 7 Days #28 capsule 12/09/21 12/14/21 Unknown Rx Aspirin [[place] Aspirin EC] 81 mg PO QDAY 12/14/21 12/14/21 Unknown History Atorvastatin [Lipitor Tab] 80 mg PO QHS 12/14/21 12/14/21 Unknown History Dapagliflozin Propanediol [Farxiga] 10 mg PO QDAY 12/14/21 12/14/21 Unknown History Insulin Detemir [Levemir VIAL] 25 unit SQ QHS 12/14/21 12/14/21 Unknown History Insulin Lispro [Admelog] 100 unit SQ ACHS 12/14/21 12/14/21 Unknown History Sertraline [Zoloft] 100 mg PO QDAY 12/14/21 12/14/21 Unknown History Tamsulosin [Flomax] 0.4 mg PO QDAY 12/14/21 12/14/21 Unknown History Torsemide [Demadex] 20 mg PO QDAY 12/14/21 12/14/21 Unknown History carvediloL [Coreg] 3.125 mg PO BID 12/14/21 12/14/21 Unknown History Active Medications: Generic Name Dose Route Start Last Admin Trade Name Freq PRN Reason Stop Dose Admin Acetaminophen 650 mg 12/14/21 00:30 12/19/21 06:01 Acetaminophen 325 Mg Tab PO 650 mg Q4H PRN Administration Pain MILD(1-3)/Fever >100.5/ROGERS Albuterol 2.5 mg 12/14/21 00:30 Albuterol 2.5 Mg/3 Ml Nebu IH Q3HRT PRN Shortness Of Breath Lipase/Protease/Amylase 1 each 12/17/21 11:46 Lipase 10,500/Protease 25,000/Amylase 43,750 (Units) Dr Mariee FEEDTUBE PRN PRN For Clogged Feeding Tube Ascorbic Acid 500 mg 12/14/21 10:00 12/22/21 21:02 Ascorbic Acid 500 Mg Tab PO 500 mg BID ALEXSANDRA Administration Aspirin 81 mg 12/14/21 10:00 12/22/21 10:30 Aspirin Ec 81 Mg Tab PO 81 mg QDAY ALEXSANDRA Administration Atorvastatin Calcium 80 mg 12/14/21 22:00 12/22/21 21:02 Atorvastatin 40 Mg Tab PO 80 mg QHS ALEXSANDRA Administration Carvedilol 3.125 mg 12/14/21 10:00 12/22/21 22:35 Carvedilol 3.125 Mg Tab PO Not Given BID ALEXSANDRA Cholecalciferol 1,000 unit 12/16/21 14:00 12/22/21 10:30 Cholecalciferol (Vit D3) 1000 Unit (25 Mcg) Tab PO 1,000 unit DAILY ALEXSANDRA Administration Clopidogrel Bisulfate 75 mg 12/17/21 10:00 12/22/21 10:30 Clopidogrel 75 Mg Tab PO 75 mg QDAY ALEXASNDRA Administration Dextrose 50 ml 12/14/21 00:30 Dextrose 50% In Water (25gm) 50 Ml Syringe IV Q30MIN PRN Hypoglycemia Protocol Famotidine 20 mg 12/17/21 10:00 12/22/21 10:30 Famotidine 20 Mg Tab PO 20 mg DAILY ALEXSANDRA Administration Fluconazole 100 mg 12/22/21 11:00 12/22/21 10:30 Fluconazole 100 Mg Tab PO 100 mg QDAY ALEXSANDRA Administration Protocol Heparin Sodium (Porcine) 5,000 unit 12/16/21 14:00 12/23/21 05:11 Heparin 5,000 Unit/1 Ml Vial SUB-Q 5,000 unit Q8HR ALEXSANDRA Administration Potassium Chloride 20 meq/ 1,010 mls @ 60 mls/hr 12/22/21 10:00 12/23/21 03:12 Dextrose IV 60 mls/hr DIRECT ALEXSANDRA Administration Insulin Human Isoph/Insulin Regular 25 unit 12/20/21 17:00 12/22/21 17:33 Insulin Nph/Regular 70/30 Inj SUB-Q 25 unit BIDDIAB ALEXSANDRA Administration Insulin Human Lispro 0 unit 12/14/21 06:00 12/23/21 00:00 Insulin Lispro 100 Unit/Ml SUB-Q Not Given Q6HR [facility] Protocol Labetalol HCl 10 mg 12/14/21 00:30 Labetalol 20 Mg/4 Ml Inj IV Q5MIN PRN to maintain SBP < 180 Morphine Sulfate 2 mg 12/14/21 00:30 Morphine 2 Mg/1 Ml Inj IV Q4H PRN Pain, Moderate (4-6) Morphine Sulfate 4 mg 12/14/21 00:30 Morphine 4 Mg/1 Ml Inj IV Q4H PRN Pain , Severe (7-10) Ondansetron HCl 4 mg 12/14/21 00:30 Ondansetron 4 Mg/2 Ml Inj IV Q8H PRN Nausea And Vomiting Sertraline HCl 100 mg 12/14/21 10:00 12/22/21 10:30 Sertraline 100 Mg Tab PO 100 mg QDAY ALEXSANDRA Administration Simple Syrup 15 ml 12/17/21 11:46 Simple Syrup 15 Ml FEEDTUBE PRN PRN Hypoglycemia Simple Syrup 30 ml 12/17/21 11:46 Simple Syrup 15 Ml FEEDTUBE PRN PRN Hypoglycemia Sodium Bicarbonate 325 mg 12/17/21 11:46 Sodium Bicarbonate 325 Mg Tab FEEDTUBE PRN PRN For Clogged Feeding Tube Sodium Chloride 10 ml 12/14/21 10:00 12/22/21 21:03 Sodium Chloride 0.9% 10 Ml Flush Syringe IV 10 ml BID ALEXSANDRA Administration Sodium Chloride 10 ml 12/14/21 00:30 Sodium Chloride 0.9% 10 Ml Flush Syringe IV PRN PRN LINE FLUSH Zinc Sulfate 220 mg 12/14/21 10:00 12/22/21 21:02 Zinc Sulfate 220 Mg Cap PO 220 mg BID ALEXSANDRA Administration
[2021-12-23] MEDS: INSULIN NPH/REGULAR 70/30 INJ SUB-Q SCH ×2 (09:55→17:02)
[2021-12-23] MEDS: ASPIRIN EC 81 MG TAB PO SCH (09:56)
[2021-12-23] MEDS: ZINC SULFATE 220 MG CAP PO SCH ×2 (09:56→21:40)
[2021-12-23] MEDS: SERTRALINE 100 MG TAB PO SCH (09:56)
[2021-12-23] MEDS: CHOLECALCIFEROL (VIT D3) 1000 UNIT (25 mcg) TAB PO SCH (09:56)
[2021-12-23] MEDS: FLUCONAZOLE 100 MG TAB PO SCH (09:56)
[2021-12-23] MEDS: carvediloL 3.125 MG TAB PO SCH ×2 (09:56→21:15)
[2021-12-23] MEDS: ASCORBIC ACID 500 MG TAB PO SCH ×2 (09:56→21:39)
[2021-12-23] MEDS: FAMOTIDINE 20 MG TAB PO SCH (09:56)
[2021-12-23] MEDS: CLOPIDOGREL 75 MG TAB PO SCH (09:56)
[2021-12-23] MEDS: MORPHINE 2 MG/1 ML INJ IV PRN (10:11)
[2021-12-23] MEDS: INSULIN LISPRO 100 UNIT/ML SUB-Q SCH ×4 (12:00→17:04)
--- NOTE | 2021-12-23 21:26 | Progress Note ---
Assessment and Plan Assessment and plan: VQ scan done on admission showed intermediate probability for PE, heparin drip was on hold due to suspected CVA. Discussed with nephrology and Dr. Guevara cleared for CTA chest to be done as renal function has been stabilized. Initially history was suspected for acute CVA due to abnormal finding on CT scan of right coronary artery occlusion. MRI could not be done as patient could not complete history due to altered mental status and no family was found. Patient had repeat CT head after [address] which also remains normal without any abnormal findings. Patient mental condition currently improving with medical management. Patient was also evaluated by vascular and no occlusion seen intracranially. Will reattempt MRI brain and CTA of the chest to clarify the diagnosis. Addendum entered and electronically signed by ALICE ROMERO MD 12/22/21 16:18: Right carotid artery occlusion: CTA showed occlusion of right carotid artery during admission, however intracranially there is no occlusion seen Patient was evaluated by vascular surgery and recommended to continue medical management. Original Note: Assessment and Plan Patient is a 66-year-old male with past medical history of CVA, diabetes was brought to the emergency room because of altered mental status. Patient is was sent from [facility] after he was noted to be unresponsive approximately 2 hours ago. Per nursing the patient is normally talkative. EMS was called and found the patient to be hypoxic to 88% on room air and patient was placed on a nonrebreather. The patient is currently unresponsive with eyes open Case discussed with tele-neurologist Dr. Ha-given last known well time of 09: 00 patient is not a tPA candidate. As patient is bedbound he is not a candidate for thrombectomy. CTA shows occlusion of right carotid artery however intracranially there is no occlusion seen Imaging studies including a CT of the head showed There is occlusion of the right common carotid artery from its origin which extends to involve the entire right internal carotid artery with minimal retrograde flow in the distal right ICA. 2. Small age-indeterminate right rice radiata white matter lacunar infarctions. No other occlusion or significant stenosis. Chest x-ray shows no acute pathology. 12/15/21: At this time we will discontinue heparin drip until patient is seen by vascular surgery. MRI still pending, unsure if patient actually had a CVA would not want this to expand with the current heparin drip ordered. Patient does not show persistent hypoxia or in any acute respiratory distress at this time althou gh on 2 L of oxygen with good sustained saturation. I will also obtain nephrology consultation due to acute on chronic CKD creatinine checked on November showed a creatinine of 2.3 although this is close to our recent time and not sure what his underlying baseline is. Continue seizure precautions. Will await for neurology input for possible EEG to rule out status epilepticus. Aspiration precautions. We will obtain a VQ scan at this time: Only perfusion study done, Ventilation study could not be done, its possible there may be a small clot, in anycase will discuss with nephrology if patient can get contrast for CTA. Hold off to heparin drip for now. 12/16: Mental status remains unchanged and this is why unable to complete MRI as we cannot complete the screening process. Seen by vascular and recommended to continue medical management until mental status improves. Plan to repeat CT brain tomorrow in the morning as we cannot do MRI. Renal function continued to get worse, continue IV fluid monitor blood glucose. Hold diuretics, nephrology following. 12/17: Worsening renal failure with current creatinine is 4.2, mild acidosis, bicarbonate around 21. Initiate on TF, monitor ins/os. Most likely etiology of his renal failure appears to be due to radiocontrast exposure, hypoxemia, respiratory failure which likely resulted in acute tubular necrosis. cont to follow BMP, nephrology following 12/18: Cr slightly improved, Na 152 - will change fluid to 1/2NS, increase insulin dose to better control hyperglycemia, follow clinically 12/19. Sodium remains elevated, continue half-normal saline. UA suggestive for UTI initiated on empiric antibiotic, also ordered blood culture and urine culture. Creatinine trending down, follow BMP 12/20: Na level 162 today, change iv fluid to D5W, increase long acting insulin coverage, follow BMP 12/21: Na and Cr improving, cont d5W and free water, follow BMP. Mental status improving. 12/22: Sodium and creatinine level continue to improve. Creatinine 1.2 and sodium 151 today. Potassium noted to be low. Change fluid to D5W with KCl. Follow BMP. Mental function improving. Patient remains on supplemental O2. Need to follow-up with the terminologist for CTA chest: VQ scan obtained on admission showed intermediate probability for PE even though lower extremity venous Doppler was negative. Heparin drip has been on hold due to acute CVA. 12/23/2021; patient is more alert and awake today. Work-up is in progress. Patient needs consent for her CTA chest Assessment and plan: -- UTI with sepsis, started on empiric antibiotics, ordered urine and blood culture -- Hypernatremia, continue half-normal saline, monitor BMP -- Acute metabolic encephalopathy Likely possible acute CVA Admitted the patient to the medical telemetry. Acute metabolic encephalopathy secondary to CVA, urosepsis and MAURI. Aspirin 325 mg p.o. daily. Lipitor 40 mg p.o. daily. S/p CT head with CTA head and neck MRI brain could not be done as patient history could not be completed Ordered echocardiogram/ PT OT speech evaluation. Neurology consulted -- MAURI (acute kidney injury) with vasomotor nephropathy on CKD stage III -creati nine worsening Avoid nephrotoxic drug. Renally dose medication. Renal function now improving -- Diabetes type 2 Accu-Chek every 6 hours with Humalog low-dose coverage. Diabetic education -- Lactic acidosis, improved with hydration -- Pleural effusion Oxygen via nasal cannula 3 L/min. DuoNeb via nebulizer every 4 hours. Albuterol via nebulizer every 4 hours as needed. We will monitor the patient closely. If needed will consult pulmonary --Acute hypoxic respiratory failure on admission, likely from pleural effusion --Abnormal VQ scan, holding off heparin drip for now as patient might have acute CVA Need repeat CTA chest when renal function allows to confirm the diagnosis of PE Lower extremity venous Doppler is negative -- DVT prophylaxis Heparin 5000 units subcu every 12 hours for DVT prophylaxis. Pepcid 20 mg IV every 12 hours for GI prophylaxis. Patient is a full code History Interval history: I have seen and examined the patient at the bedside No new events reported by the nursing patient's chart and medications reviewed Vital signs noted Hospitalist Physical - Constitutional Vitals: Temp Pulse Resp BP Pulse Ox 99.6 F 63 18 114/50 96 12/23/21 20:25 12/23/21 20:25 12/23/21 20:25 12/23/21 20:25 12/23/21 20:25 General appearance: Present: no acute distress, well-nourished, disheveled - EENT Eyes: Present: PERRL, EOM intact - Neck Neck: Present: supple, normal ROM - Respiratory Respiratory effort: normal Respiratory: bilateral: diminished, negative: rales, rhonchi, wheezing - Extremities Extremities: no ischemia, No edema - Abdominal General gastrointestinal: soft, non-tender, non-distended, normal bowel sounds - Integumentary Integumentary: Present: clear, warm - Psychiatric Psychiatric: appropriate mood/affect, cooperative - Neurologic Neurologic: CNII-XII intact, moves all extremities HEART Score - HEART Score Troponin: Troponin T 0.062 ng/mL (0.00-0.029) H 12/13/21 22:49 Results - Labs CBC & Chem 7: 12/23/21 04:52 12/23/21 04:52 Labs: Laboratory Last Values WBC 10.0 K/mm3 (4.5-11.0) 12/23/21 04:52 RBC 4.14 M/mm3 (3.65-5.03) 12/23/21 04:52 Hgb 10.6 gm/dl (11.8-15.2) L 12/23/21 04:52 Hct 33.9 % (35.5-45.6) L 12/23/21 04:52 MCV 82 fl (84-94) L 12/23/21 04:52 MCH 26 pg (28-32) L 12/23/21 04:52 MCHC 31 % (32-34) L 12/23/21 04:52 RDW 20.3 % (13.2-15.2) H 12/23/21 04:52 Plt Count 77 K/mm3 (140-440) L 12/23/21 04:52 Lymph % (Auto) 6.6 % (13.4-35.0) L 12/13/21 22:49 [place] % (Auto) 11.0 % (0.0-7.3) H 12/13/21 22:49 Eos % (Auto) 0.1 % (0.0-4.3) 12/13/21 22:49 Baso % (Auto) 0.3 % (0.0-1.8) 12/13/21 22:49 Lymph # (Auto) 0.9 K/mm3 (1.2-5.4) L 12/13/21 22:49 [place] # (Auto) 1.4 K/mm3 (0.0-0.8) H 12/13/21 22:49 Eos # (Auto) 0.0 K/mm3 (0.0-0.4) 12/13/21 22:49 Baso # (Auto) 0.0 K/mm3 (0.0-0.1) 12/13/21 22:49 Add Manual Diff Complete 12/23/21 04:52 Total Counted 100 12/23/21 04:52 Seg Neutrophils % 82.0 % (40.0-70.0) H 12/13/21 22:49 Seg Neuts % (Manual) 86.0 % (40.0-70.0) H 12/23/21 04:52 Band Neutrophils % 0 % 12/23/21 04:52 Lymphocytes % (Manual) 2.0 % (13.4-35.0) L 12/23/21 04:52 Reactive Lymphs % (Man) 0 % 12/23/21 04:52 Monocytes % (Manual) 6.0 % (0.0-7.3) 12/23/21 04:52 Eosinophils % (Manual) 6.0 % (0.0-4.3) H 12/23/21 04:52 Basophils % (Manual) 0 % (0.0-1.8) 12/23/21 04:52 Metamyelocytes % 0 % 12/23/21 04:52 Myelocytes % 0 % 12/23/21 04:52 Promyelocytes % 0 % 12/23/21 04:52 Blast Cells % 0 % 12/23/21 04:52 Nucleated RBC % Not Reportable 12/23/21 04:52 Seg Neutrophils # 10.6 K/mm3 (1.8-7.7) H 12/13/21 22:49 Seg Neutrophils # Man 8.6 K/mm3 (1.8-7.7) H 12/23/21 04:52 Band Neutrophils # 0.0 K/mm3 12/23/21 04:52 Lymphocytes # (Manual) 0.2 K/mm3 (1.2-5.4) L 12/23/21 04:52 Abs React Lymphs (Man) 0.0 K/mm3 12/23/21 04:52 Monocytes # (Manual) 0.6 K/mm3 (0.0-0.8) 12/23/21 04:52 Eosinophils # (Manual) 0.6 K/mm3 (0.0-0.4) H 12/23/21 04:52 Basophils # (Manual) 0.0 K/mm3 (0.0-0.1) 12/23/21 04:52 Metamyelocytes # 0.0 K/mm3 12/23/21 04:52 Myelocytes # 0.0 K/mm3 12/23/21 04:52 Promyelocytes # 0.0 K/mm3 12/23/21 04:52 Blast Cells # 0.0 K/mm3 12/23/21 04:52 WBC Morphology Not Reportable 12/23/21 04:52 Hypersegmented Neuts Not Reportable 12/23/21 04:52 Hyposegmented Neuts Not Reportable 12/23/21 04:52 Hypogranular Neuts Not Reportable 12/23/21 04:52 Smudge Cells Not Reportable 12/23/21 04:52 Toxic Granulation Not Reportable 12/23/21 04:52 Toxic Vacuolation Not Reportable 12/23/21 04:52 Dohle Bodies Not Reportable 12/23/21 04:52 Pelger-Huet Anomaly Not Reportable 12/23/21 04:52 Sarah Rods Not Reportable 12/23/21 04:52 Platelet Estimate Consistent w auto 12/23/21 04:52 Clumped Platelets Not Reportable 12/23/21 04:52 Plt Clumps, EDTA Not Reportable 12/23/21 04:52 Large Platelets Not Reportable 12/23/21 04:52 Giant Platelets Not Reportable 12/23/21 04:52 Platelet Satelliting Not Reportable 12/23/21 04:52 Plt Morphology Comment Not Reportable 12/23/21 04:52 RBC Morphology Not Reportable 12/23/21 04:52 Dimorphic RBCs Not Reportable 12/23/21 04:52 Polychromasia Not Reportable 12/23/21 04:52 Hypochromasia 1+ 12/23/21 04:52 Poikilocytosis Not Reportable 12/23/21 04:52 Anisocytosis 1+ 12/23/21 04:52 Microcytosis Not Reportable 12/23/21 04:52 Macrocytosis Not Reportable 12/23/21 04:52 Spherocytes Not Reportable 12/23/21 04:52 Pappenheimer Bodies Not Reportable 12/23/21 04:52 Sickle Cells Not Reportable 12/23/21 04:52 Target Cells Not Reportable 12/23/21 04:52 Tear Drop Cells Not Reportable 12/23/21 04:52 Ovalocytes Not Reportable 12/23/21 04:52 Helmet Cells Not Reportable 12/23/21 04:52 Greer-Sundance Bodies Not Reportable 12/23/21 04:52 Sidney Rings Not Reportable 12/23/21 04:52 Kwabena Cells Not Reportable 12/23/21 04:52 Bite Cells Not Reportable 12/23/21 04:52 Crenated Cell Not Reportable 12/23/21 04:52 Elliptocytes Not Reportable 12/23/21 04:52 Acanthocytes (Spur) Not Reportable 12/23/21 04:52 Rouleaux Not Reportable 12/23/21 04:52 Hemoglobin C Crystals Not Reportable 12/23/21 04:52 Schistocytes Not Reportable 12/23/21 04:52 Malaria parasites Not Reportable 12/23/21 04:52 Jigar Bodies Not Reportable 12/23/21 04:52 Hem Pathologist Commnt No 12/23/21 04:52 PT 14.8 Sec. (12.2-14.9) 12/15/21 19:05 INR 1.04 (0.87-1.13) 12/15/21 19:05 APTT 105.5 Sec. (24.2-36.6) H* 12/15/21 19:05 Thrombin Time 18.7 Sec. (15.1-19.6) 12/13/21 22:49 D-Dimer 1278.36 ng/mlDDU (0-234) H 12/14/21 07:14 Heparin Anti-Xa Level 0.82 U.I./ml (0.3-0.7) H 12/16/21 03:54 VBG pH 7.393 (7.320-7.420) 12/13/21 22:49 Sodium 148 mmol/L (137-145) H 12/23/21 04:52 Potassium 3.5 mmol/L (3.6-5.0) L 12/23/21 04:52 Chloride 115.0 mmol/L (98-107) H 12/23/21 04:52 Carbon Dioxide 22 mmol/L (22-30) 12/23/21 04:52 Anion Gap 15 mmol/L 12/23/21 04:52 BUN 33 mg/dL (9-20) H 12/23/21 04:52 Creatinine 1.0 mg/dL (0.8-1.3) 12/23/21 04:52 Estimated GFR > 60 ml/min 12/23/21 04:52 BUN/Creatinine Ratio 33 % 12/23/21 04:52 Glucose 175 mg/dL (75-100) H 12/23/21 04:52 POC Glucose 198 mg/dL (70-105) H 12/23/21 16:52 Hemoglobin A1c 7.6 % (4-6) H 12/16/21 17:35 Lactic Acid 1.70 mmol/L (0.7-2.0) 12/14/21 19:48 Calcium 8.3 mg/dL (8.4-10.2) L 12/23/21 04:52 Magnesium 2.30 mg/dL (1.7-2.3) 12/13/21 22:49 Ferritin 412.0 ng/mL (30.0-300.0) H 12/14/21 10:07 Total Bilirubin 0.30 mg/dL (0.1-1.2) 12/14/21 10:07 AST 21 units/L (5-40) 12/14/21 10:07 ALT 13 units/L (7-56) 12/14/21 10:07 Alkaline Phosphatase 176 units/L (35-129) H 12/14/21 10:07 Ammonia 10.0 umol/L (25-60) L 12/13/21 22:49 Lactate Dehydrogenase 205 units/L (91-180) H 12/14/21 10:07 Total Creatine Kinase 17 units/L (55-170) L 12/13/21 22:49 CK-MB (CK-2) 1.3 ng/mL (0.0-4.0) 12/13/21 22:49 CK-MB (CK-2) Rel Index 7.6 (0-4) H 12/13/21 22:49 Troponin T 0.062 ng/mL (0.00-0.029) H 12/13/21 22:49 C-Reactive Protein 3.90 mg/dL (0.00-1.30) H 12/14/21 10:07 Total Protein 7.4 g/dL (6.3-8.2) 12/14/21 10:07 Albumin 3.5 g/dL (3.9-5) L 12/14/21 10:07 Albumin/Globulin Ratio 0.9 % 12/14/21 10:07 Triglycerides 250 mg/dL (2-149) H 12/13/21 22:49 Cholesterol 185 mg/dL (50-199) 12/13/21 22:49 LDL Cholesterol Direct 87 mg/dL (50-130) 12/13/21 22:49 HDL Cholesterol 27 mg/dL (40-59) L 12/13/21 22:49 Cholesterol/HDL Ratio 6.85 % 12/13/21 22:49 Procalcitonin 0.16 ng/mL (<0.15) 12/14/21 10:07 TSH 0.616 mlU/mL (0.270-4.200) 12/13/21 22:49 Free T4 1.45 ng/dL (0.76-1.46) 12/13/21 22:49 Urine Color Straw (Yellow) 12/18/21 23:00 Urine Turbidity Slightly cloudy (Clear) 12/18/21 23:00 Urine pH 6.0 (5.0-7.0) 12/18/21 23:00 Ur Specific [place] 1.010 (1.003-1.030) 12/18/21 23:00 Urine Protein 30 mg/dl mg/dL (Negative) 12/18/21 23:00 Urine Glucose (UA) Trace mg/dL (Negative) 12/18/21 23:00 Urine Ketones Neg mg/dL (Negative) 12/18/21 23:00 Urine Blood Large (Negative) A 12/18/21 23:00 Urine Nitrite Neg (Negative) 12/18/21 23:00 Ur Reducing Substances Not Reportable 12/18/21 23:00 Urine Bilirubin Neg (Negative) 12/18/21 23:00 Urine Ictotest Not Reportable 12/18/21 23:00 Urine Urobilinogen < 2.0 mg/dL (<2.0) 12/18/21 23:00 Ur Leukocyte Esterase Moderate (Negative) 12/18/21 23:00 Urine WBC (Auto) 18.0 /HPF (0.0-6.0) H 12/18/21 23:00 Urine RBC (Auto) 121.0 /HPF (0.0-6.0) 12/18/21 23:00 U Epithel Cells (Auto) < 1.0 /HPF (0-13.0) 12/18/21 23:00 Urine Bacteria (Auto) 1+ /HPF (Negative) 12/18/21 23:00 Urine Mucus Few /HPF 12/18/21 23:00 Urine Yeast (Budding) 3+ /HPF 12/18/21 23:00 Plasma/Serum Alcohol < 0.01 % (0-0.07) 12/13/21 22:49 Coronavirus (PCR) Negative (Negative) 12/14/21 10:50 Microbiology: Microbiology 12/19/21 10:27 Peripheral/Venous Blood Culture - Preliminary NO GROWTH AFTER 4 DAYS [place]/IV: Voiding Method Indwelling Catheter Active Medications - Current Medications Current Medications: Generic Name Dose Route Start Last Admin Trade Name Freq PRN Reason Stop Dose Admin Acetaminophen 650 mg 12/14/21 00:30 12/19/21 06:01 Acetaminophen 325 Mg Tab PO 650 mg Q4H PRN Administration Pain MILD(1-3)/Fever >100.5/ROGERS Albuterol 2.5 mg 12/14/21 00:30 Albuterol 2.5 Mg/3 Ml Nebu IH Q3HRT PRN Shortness Of Breath Lipase/Protease/Amylase 1 each 12/17/21 11:46 Lipase 10,500/Protease 25,000/Amylase 43,750 (Units) Dr Mariee FEEDTUBE PRN PRN For Clogged Feeding Tube Ascorbic Acid 500 mg 12/14/21 10:00 12/23/21 09:56 Ascorbic Acid 500 Mg Tab PO 500 mg BID ALEXSANDRA Administration Aspirin 81 mg 12/14/21 10:00 12/23/21 09:56 Aspirin Ec 81 Mg Tab PO 81 mg QDAY ALEXSANDRA Administration Atorvastatin Calcium 80 mg 12/14/21 22:00 12/22/21 21:02 Atorvastatin 40 Mg Tab PO 80 mg QHS ALEXSANDRA Administration Carvedilol 3.125 mg 12/14/21 10:00 12/23/21 09:56 Carvedilol 3.125 Mg Tab PO 3.125 mg BID ALEXSANDRA Administration Cholecalciferol 1,000 unit 12/16/21 14:00 12/23/21 09:56 Cholecalciferol (Vit D3) 1000 Unit (25 Mcg) Tab PO 1,000 unit DAILY ALEXSANDRA Administration Clopidogrel Bisulfate 75 mg 12/17/21 10:00 12/23/21 09:56 Clopidogrel 75 Mg Tab PO 75 mg QDAY ALEXSANDRA Administration Dextrose 50 ml 12/14/21 00:30 Dextrose 50% In Water (25gm) 50 Ml Syringe IV Q30MIN PRN Hypoglycemia Protocol Famotidine 20 mg 12/17/21 10:00 12/23/21 09:56 Famotidine 20 Mg Tab PO 20 mg DAILY ALEXSANDRA Administration Fluconazole 100 mg 12/22/21 11:00 12/23/21 09:56 Fluconazole 100 Mg Tab PO 12/28/21 10:01 100 mg QDAY ALEXSANDRA Administration Protocol Heparin Sodium (Porcine) 5,000 unit 12/16/21 14:00 12/23/21 17:02 Heparin 5,000 Unit/1 Ml Vial SUB-Q 5,000 unit Q8HR ALEXSANDRA Administration Potassium Chloride 20 meq/ 1,010 mls @ 60 mls/hr 12/22/21 10:00 12/23/21 03:12 Dextrose IV 60 mls/hr DIRECT ALEXSANDRA Administration Insulin Human Isoph/Insulin Regular 25 unit 12/20/21 17:00 12/23/21 17:02 Insulin Nph/Regular 70/30 Inj SUB-Q 25 unit BIDDIAB ALEXSANDRA Administration Insulin Human Lispro 0 unit 12/14/21 06:00 12/23/21 17:04 Insulin Lispro 100 Unit/Ml SUB-Q 2 unit Q6HR ALEXSANDRA Administration Protocol Labetalol HCl 10 mg 12/14/21 00:30 Labetalol 20 Mg/4 Ml Inj IV Q5MIN PRN to maintain SBP < 180 Morphine Sulfate 2 mg 12/14/21 00:30 12/23/21 10:11 Morphine 2 Mg/1 Ml Inj IV 2 mg Q4H PRN Administration Pain, Moderate (4-6) Morphine Sulfate 4 mg 12/14/21 00:30 Morphine 4 Mg/1 Ml Inj IV Q4H PRN Pain , Severe (7-10) Ondansetron HCl 4 mg 12/14/21 00:30 Ondansetron 4 Mg/2 Ml Inj IV Q8H PRN Nausea And Vomiting Sertraline HCl 100 mg 12/14/21 10:00 12/23/21 09:56 Sertraline 100 Mg Tab PO 100 mg QDAY ALEXSANDRA Administration Simple Syrup 15 ml 12/17/21 11:46 Simple Syrup 15 Ml FEEDTUBE PRN PRN Hypoglycemia Simple Syrup 30 ml 12/17/21 11:46 Simple Syrup 15 Ml FEEDTUBE PRN PRN Hypoglycemia Sodium Bicarbonate 325 mg 12/17/21 11:46 Sodium Bicarbonate 325 Mg Tab FEEDTUBE PRN PRN For Clogged Feeding Tube Sodium Chloride 10 ml 12/14/21 10:00 12/23/21 09:57 Sodium Chloride 0.9% 10 Ml Flush Syringe IV 10 ml BID ALEXSANDRA Administration Sodium Chloride 10 ml 12/14/21 00:30 Sodium Chloride 0.9% 10 Ml Flush Syringe IV PRN PRN LINE FLUSH Zinc Sulfate 220 mg 12/14/21 10:00 12/23/21 09:56 Zinc Sulfate 220 Mg Cap PO 220 mg BID ALEXSANDRA Administration Nutrition/Malnutrition Assess - Dietary Evaluation Nutrition/Malnutrition Findings: Nutrition Notes Start: 12/14/21 14:50 Freq: Status: Active Protocol: Document 12/19/21 10:39 JARON (Rec: 12/19/21 11:03 JARON [id number]) Nutrition Notes Initial or Follow up Reassessment Current Diagnosis Acute Kidney Injury,CKD(stage I-IV),Diabetes,Hypertension, Stroke Other Pertinent Diagnosis Metabolic Encephalopathy, SIRS , Pleural Effusion, R-ICA Occlusion... Current Diet TF-Nepro w/CARBSTEADY @ 35 ml/ hr (since L 12/17). Labs/Tests 12/19: Na 152, Cl 114.1, CO2 21, BUN 115, Crea 3.6, Glu 294 , HbA1c 7.6. Pertinent Medications 12/19: Vit C, Vit D3, Humulin 70/30 15U, Humalog 4U, ZnSO4, others nutritionally unremarkable. Height 5 ft 7 in Weight 81.6 kg [place] Body Weight (kg) 67.27 BMI 28.1 Weight change and time frame 6.6 Kg body weight loss in 2 days reported. Weight Status Overweight Subjective/Other Information RD consult for routine F/U on TF tolerance/continuation. TF continues as prescribed, well tolerated, according to RN notes. Pt is on Room Air, O2 saturation @ 97%, according to Physical Assessment History notes. Percent of energy/protein needs met: Prescribed TF-Nepro w/ CARBSTEADY @ 35 ml/hr provides for energy/protein needs (1, 530 Kcal/69 g) during LOS, 86% Kcal; 100% AA. Burn Absent Trauma Absent GI Symptoms None Food Allergy No Skin Integrity/Comment Unspecified Dryness area of concern Current % PO Other Minimum of two criteria No #1 Nutrition Diagnosis Inadequate oral intake Diagnosis Progress(for reassessment Continues documentation) Is patient on ventilator? No Is Patient Ambulatory and/or Out of Bed No [facility] 1876.812 Kcal/Kg value to use for calculation 22 Approximate Energy Requirements Using 1795 kcal/Kg Calculation Used for Recommendations Kcal/kg Additional Notes Protein: 0.6-0.8 g/Kg ABW; 46- 62 g/day. Fluids: 1 ml/Kcal, or as per MD. Nutrition Intervention Nutrition Support: Continue TF-Nepro w/CARBSTEADY @ 35 ml/hr. Flush: 200 ml water Q 4 hr, or as per MD. Kcal 1,530 Protein (gm) 69 Carbohydrates (gm) 137 Fat (gm) 82 Fluid (mL) 618 Fiber (gm) 11 % RDI: 86% Kcal; 100% AA. Goal #1 Provide at least 75% of energy /protein needs through Enteral Feeding during LOS. Goal #2 Maintain body weight within +/ -3% of admission body weight during LOS. Follow-Up By: 12/26/21 Additional Comments Continue monitoring TF tolerance and BM.
[2021-12-24] MEDS: INSULIN LISPRO 100 UNIT/ML SUB-Q SCH ×4 (00:49→18:27)
[2021-12-24] MEDS: HEPARIN 5,000 UNIT/1 ML VIAL SUB-Q SCH ×3 (06:06→22:01)
[2021-12-24] MEDS: INSULIN NPH/REGULAR 70/30 INJ SUB-Q SCH ×2 (08:16→17:04)
--- NOTE | 2021-12-24 09:00 | Cat Scan Report ---
CTA CHEST WITH CONTRAST INDICATION / CLINICAL INFORMATION: Abnormal V/Q/rule out PE. TECHNIQUE: Axial CT images were obtained through the chest after injection of IV contrast. 3 plane MO P and/or 3D reconstructions were produced. All CT scans at this location are performed using CT dose reduction for ALARA by means of automated exposure control. COMPARISON: 12/09/2021. FINDINGS: PULMONARY ARTERIES: No pulmonary emboli. THORACIC AORTA: No significant abnormality. HEART: No significant abnormality. CORONARY ARTERY CALCIFICATION: None. MEDIASTINUM / ANN: No significant abnormality. PLEURA: Small basilar effusions. No pneumothorax. LUNGS: Mild basilar atelectasis. Mild patchy opacity at the right middle and lower lobes. Mild scarri ng at the lingula and left base. ADDITIONAL FINDINGS: None. UPPER ABDOMEN: No acute findings. SKELETAL STRUCTURES: No significant osseous abnormality. IMPRESSION: 1. No CT evidence for pulmonary embolism. 2. Small basilar effusions with associated atelectasis. 3. Mild right basilar pneumonia. 4. Scarring left base. Signer Name: Vladislav Gonzales MD Signed: 12/24/2021 8:56 AM Workstation Name: [id number]
[2021-12-24] MEDS: ASPIRIN EC 81 MG TAB PO SCH (09:39)
[2021-12-24] MEDS: CLOPIDOGREL 75 MG TAB PO SCH (09:39)
[2021-12-24] MEDS: SERTRALINE 100 MG TAB PO SCH (09:39)
[2021-12-24] MEDS: FLUCONAZOLE 100 MG TAB PO SCH (09:39)
[2021-12-24] MEDS: ZINC SULFATE 220 MG CAP PO SCH (09:39)
[2021-12-24] MEDS: FAMOTIDINE 20 MG TAB PO SCH (09:39)
[2021-12-24] MEDS: carvediloL 3.125 MG TAB PO SCH ×2 (09:39→22:00)
[2021-12-24] MEDS: ASCORBIC ACID 500 MG TAB PO SCH (09:39)
[2021-12-24] MEDS: CHOLECALCIFEROL (VIT D3) 1000 UNIT (25 mcg) TAB PO SCH (09:39)
--- NOTE | 2021-12-24 09:43 | Progress Note ---
Assessment and Plan Impression: * Acute kidney injury secondary to volume depletion/dehydration * Hypernatremia * Hypokalemia Plan: * BMP ordered - follow up post contrast * Continue D5W w/ 20meq KCl * Continue Free H20 w/ TF - 300ml [id number] * Replete lytes prn * Dose medications for renal function * Avoid potential nephrotoxins * Recommend holding discharge today. SCr in AM to monitor renal function s/p contrast exposure Subjective Date of service: 12/24/21 Interval history: Patient is s/p CTA this AM Objective - Vital Signs Vital signs: Vital Signs - 12hr 12/23/21 12/24/21 12/24/21 22:00 00:50 05:04 Temperature 99.3 F 99.4 F Pulse Rate 68 70 72 Respiratory 18 18 Rate Blood Pressure 98/47 Blood Pressure 107/60 [Left] O2 Sat by Pulse 97 97 95 Oximetry 12/24/21 12/24/21 12/24/21 06:00 09:33 09:39 Temperature 100.1 F H Pulse Rate 70 77 77 Respiratory 14 Rate Blood Pressure 114/53 Blood Pressure 114/53 [Left] O2 Sat by Pulse 94 Oximetry - General Appearance General appearance: well-developed, well-nourished EENT: ATNC Respiratory: Present: Clear to Ascultation Cardiology: regular, S1S2 Gastrointestinal: normal, no tenderness, no distended - Lab 12/23/21 04:52 12/25/21 07:46 Most recent lab results Calcium 8.3 mg/dL (8.4-10.2) L 12/23/21 04:52 Magnesium 2.30 mg/dL (1.7-2.3) 12/13/21 22:49 Medications & Allergies - Medications Allergies/Adverse Reactions: Allergies No Known Allergies Allergy (Verified 12/09/21 12:16) Home Medications: Home Medications Medication Instructions Recorded Confirmed Last Taken Type cephALEXin [Keflex] 500 mg PO Q6HR 7 Days #28 capsule 12/09/21 12/14/21 Unknown Rx Aspirin [[place] Aspirin EC] 81 mg PO QDAY 12/14/21 12/14/21 Unknown History Atorvastatin [Lipitor Tab] 80 mg PO QHS 12/14/21 12/14/21 Unknown History Dapagliflozin Propanediol [Farxiga] 10 mg PO QDAY 12/14/21 12/14/21 Unknown History Insulin Detemir [Levemir VIAL] 25 unit SQ QHS 12/14/21 12/14/21 Unknown History Insulin Lispro [Admelog] 100 unit SQ ACHS 12/14/21 12/14/21 Unknown History Sertraline [Zoloft] 100 mg PO QDAY 12/14/21 12/14/21 Unknown History Tamsulosin [Flomax] 0.4 mg PO QDAY 12/14/21 12/14/21 Unknown History Torsemide [Demadex] 20 mg PO QDAY 12/14/21 12/14/21 Unknown History carvediloL [Coreg] 3.125 mg PO BID 12/14/21 12/14/21 Unknown History Active Medications: Generic Name Dose Route Start Last Admin Trade Name Freq PRN Reason Stop Dose Admin Acetaminophen 650 mg 12/14/21 00:30 12/19/21 06:01 Acetaminophen 325 Mg Tab PO 650 mg Q4H PRN Administration Pain MILD(1-3)/Fever >100.5/ROGERS Albuterol 2.5 mg 12/14/21 00:30 Albuterol 2.5 Mg/3 Ml Nebu IH Q3HRT PRN Shortness Of Breath Lipase/Protease/Amylase 1 each 12/17/21 11:46 Lipase 10,500/Protease 25,000/Amylase 43,750 (Units) Dr Mariee FEEDTUBE PRN PRN For Clogged Feeding Tube Ascorbic Acid 500 mg 12/14/21 10:00 12/24/21 09:39 Ascorbic Acid 500 Mg Tab PO 500 mg BID ALEXSANDRA Administration Aspirin 81 mg 12/14/21 10:00 12/24/21 09:39 Aspirin Ec 81 Mg Tab PO 81 mg QDAY ALEXSANDRA Administration Atorvastatin Calcium 80 mg 12/14/21 22:00 12/23/21 21:39 Atorvastatin 40 Mg Tab PO 80 mg QHS ALEXSANDRA Administration Carvedilol 3.125 mg 12/14/21 10:00 12/24/21 09:39 Carvedilol 3.125 Mg Tab PO 3.125 mg BID ALEXSANDRA Administration Cholecalciferol 1,000 unit 12/16/21 14:00 12/24/21 09:39 Cholecalciferol (Vit D3) 1000 Unit (25 Mcg) Tab PO 1,000 unit DAILY ALEXSANDRA Administration Clopidogrel Bisulfate 75 mg 12/17/21 10:00 12/24/21 09:39 Clopidogrel 75 Mg Tab PO 75 mg QDAY ALEXSANDRA Administration Dextrose 50 ml 12/14/21 00:30 Dextrose 50% In Water (25gm) 50 Ml Syringe IV Q30MIN PRN Hypoglycemia Protocol Famotidine 20 mg 12/17/21 10:00 12/24/21 09:39 Famotidine 20 Mg Tab PO 20 mg DAILY ALEXSANDRA Administration Fluconazole 100 mg 12/22/21 11:00 12/24/21 09:39 Fluconazole 100 Mg Tab PO 12/28/21 10:01 100 mg QDAY ALEXSANDRA Administration Protocol Heparin Sodium (Porcine) 5,000 unit 12/16/21 14:00 12/24/21 06:06 Heparin 5,000 Unit/1 Ml Vial SUB-Q 5,000 unit Q8HR ALEXSANDRA Administration Potassium Chloride 20 meq/ 1,010 mls @ 60 mls/hr 12/22/21 10:00 12/23/21 22:39 Dextrose IV 60 mls/hr DIRECT ALEXSANDRA Administration Insulin Human Isoph/Insulin Regular 25 unit 12/20/21 17:00 12/24/21 08:16 Insulin Nph/Regular 70/30 Inj SUB-Q 25 unit BIDDIAB ALEXSANDRA Administration Insulin Human Lispro 0 unit 12/14/21 06:00 12/24/21 06:47 Insulin Lispro 100 Unit/Ml SUB-Q 2 unit Q6HR ALEXSANDRA Administration Protocol Labetalol HCl 10 mg 12/14/21 00:30 Labetalol 20 Mg/4 Ml Inj IV Q5MIN PRN to maintain SBP < 180 Morphine Sulfate 2 mg 12/14/21 00:30 12/23/21 10:11 Morphine 2 Mg/1 Ml Inj IV 2 mg Q4H PRN Administration Pain, Moderate (4-6) Morphine Sulfate 4 mg 12/14/21 00:30 Morphine 4 Mg/1 Ml Inj IV Q4H PRN Pain , Severe (7-10) Ondansetron HCl 4 mg 12/14/21 00:30 Ondansetron 4 Mg/2 Ml Inj IV Q8H PRN Nausea And Vomiting Sertraline HCl 100 mg 12/14/21 10:00 12/24/21 09:39 Sertraline 100 Mg Tab PO 100 mg QDAY ALEXSANDRA Administration Simple Syrup 15 ml 12/17/21 11:46 Simple Syrup 15 Ml FEEDTUBE PRN PRN Hypoglycemia Simple Syrup 30 ml 12/17/21 11:46 Simple Syrup 15 Ml FEEDTUBE PRN PRN Hypoglycemia Sodium Bicarbonate 325 mg 12/17/21 11:46 Sodium Bicarbonate 325 Mg Tab FEEDTUBE PRN PRN For Clogged Feeding Tube Sodium Chloride 10 ml 12/14/21 10:00 12/24/21 09:40 Sodium Chloride 0.9% 10 Ml Flush Syringe IV 10 ml BID ALEXSANDRA Administration Sodium Chloride 10 ml 12/14/21 00:30 Sodium Chloride 0.9% 10 Ml Flush Syringe IV PRN PRN LINE FLUSH Zinc Sulfate 220 mg 12/14/21 10:00 12/24/21 09:39 Zinc Sulfate 220 Mg Cap PO 220 mg BID ALEXSANDRA Administration
[2021-12-24 12:32] LABS: BUN/Creatinine Ratio 28; Blood Urea Nitrogen 25 mg/dL (9-20); Calcium 7.9 mg/dL (8.4-10.2); Hemolysis Index 22
[2021-12-24] MEDS: ACETAMINOPHEN 325 MG TAB PO PRN (16:51)
--- NOTE | 2021-12-24 20:30 | Progress Note ---
Assessment and Plan Assessment and plan: VQ scan done on admission showed intermediate probability for PE, heparin drip was on hold due to suspected CVA. Discussed with nephrology and Dr. Guevara cleared for CTA chest to be done as renal function has been stabilized. Initially history was suspected for acute CVA due to abnormal finding on CT scan of right coronary artery occlusion. MRI could not be done as patient could not complete history due to altered mental status and no family was found. Patient had repeat CT head after [address] which also remains normal without any abnormal findings. Patient mental condition currently improving with medical management. Patient was also evaluated by vascular and no occlusion seen intracranially. Will reattempt MRI brain and CTA of the chest to clarify the diagnosis. Addendum entered and electronically signed by ALICE ROMERO MD 12/22/21 16:18: Right carotid artery occlusion: CTA showed occlusion of right carotid artery during admission, however intracranially there is no occlusion seen Patient was evaluated by vascular surgery and recommended to continue medical management. Original Note: Assessment and Plan Patient is a 66-year-old male with past medical history of CVA, diabetes was brought to the emergency room because of altered mental status. Patient is was sent from [facility] after he was noted to be unresponsive approximately 2 hours ago. Per nursing the patient is normally talkative. EMS was called and found the patient to be hypoxic to 88% on room air and patient was placed on a nonrebreather. The patient is currently unresponsive with eyes open Case discussed with tele-neurologist Dr. Ha-given last known well time of 09: 00 patient is not a tPA candidate. As patient is bedbound he is not a candidate for thrombectomy. CTA shows occlusion of right carotid artery however intracranially there is no occlusion seen Imaging studies including a CT of the head showed There is occlusion of the right common carotid artery from its origin which extends to involve the entire right internal carotid artery with minimal retrograde flow in the distal right ICA. 2. Small age-indeterminate right rice radiata white matter lacunar infarctions. No other occlusion or significant stenosis. Chest x-ray shows no acute pathology. 12/15/21: At this time we will discontinue heparin drip until patient is seen by vascular surgery. MRI still pending, unsure if patient actually had a CVA would not want this to expand with the current heparin drip ordered. Patient does not show persistent hypoxia or in any acute respiratory distress at this time althou gh on 2 L of oxygen with good sustained saturation. I will also obtain nephrology consultation due to acute on chronic CKD creatinine checked on November showed a creatinine of 2.3 although this is close to our recent time and not sure what his underlying baseline is. Continue seizure precautions. Will await for neurology input for possible EEG to rule out status epilepticus. Aspiration precautions. We will obtain a VQ scan at this time: Only perfusion study done, Ventilation study could not be done, its possible there may be a small clot, in anycase will discuss with nephrology if patient can get contrast for CTA. Hold off to heparin drip for now. 12/16: Mental status remains unchanged and this is why unable to complete MRI as we cannot complete the screening process. Seen by vascular and recommended to continue medical management until mental status improves. Plan to repeat CT brain tomorrow in the morning as we cannot do MRI. Renal function continued to get worse, continue IV fluid monitor blood glucose. Hold diuretics, nephrology following. 12/17: Worsening renal failure with current creatinine is 4.2, mild acidosis, bicarbonate around 21. Initiate on TF, monitor ins/os. Most likely etiology of his renal failure appears to be due to radiocontrast exposure, hypoxemia, respiratory failure which likely resulted in acute tubular necrosis. cont to follow BMP, nephrology following 12/18: Cr slightly improved, Na 152 - will change fluid to 1/2NS, increase insulin dose to better control hyperglycemia, follow clinically 12/19. Sodium remains elevated, continue half-normal saline. UA suggestive for UTI initiated on empiric antibiotic, also ordered blood culture and urine culture. Creatinine trending down, follow BMP 12/20: Na level 162 today, change iv fluid to D5W, increase long acting insulin coverage, follow BMP 12/21: Na and Cr improving, cont d5W and free water, follow BMP. Mental status improving. 12/22: Sodium and creatinine level continue to improve. Creatinine 1.2 and sodium 151 today. Potassium noted to be low. Change fluid to D5W with KCl. Follow BMP. Mental function improving. Patient remains on supplemental O2. Need to follow-up with the well puller for CTA chest: VQ scan obtained on admission showed intermediate probability for PE even though lower extremity venous Doppler was negative. Heparin drip has been on hold due to acute CVA. 12/23/2021; patient is more alert and awake today. Work-up is in progress. Patient needs consent for her CTA chest 12/24/2021; CTA chest negative for PE, possible discharge in 1 to 2 days if stable Patient will return to [facility], pending authorization Assessment and plan: -- UTI with sepsis, started on empiric antibiotics, ordered urine and blood culture -- Hypernatremia, continue half-normal saline, monitor BMP -- Acute metabolic encephalopathy Likely possible acute CVA Admitted the patient to the medical telemetry. Acute metabolic encephalopathy secondary to CVA, urosepsis and MAURI. Aspirin 325 mg p.o. daily. Lipitor 40 mg p.o. daily. S/p CT head with CTA head and neck MRI brain could not be done as patient history could not be completed Ordered echocardiogram/ PT OT speech evaluation. Neurology consulted -- MAURI (acute kidney injury) with vasomotor nephropathy on CKD stage III - creatinine worsening Avoid nephrotoxic drug. Renally dose medication. Renal function now improving -- Diabetes type 2 Accu-Chek every 6 hours with Humalog low-dose coverage. Diabetic education -- Lactic acidosis, improved with hydration -- Pleural effusion Oxygen via nasal cannula 3 L/min. DuoNeb via nebulizer every 4 hours. Albuterol via nebulizer every 4 hours as needed. We will monitor the patient closely. If needed will consult pulmonary --Acute hypoxic respiratory failure on admission, likely from pleural effusion --Abnormal VQ scan, holding off heparin drip for now as patient might have acute CVA Need repeat CTA chest when renal function allows to confirm the diagnosis of PE Lower extremity venous Doppler is negative -- DVT prophylaxis Heparin 5000 units subcu every 12 hours for DVT prophylaxis. Pepcid 20 mg IV every 12 hours for GI prophylaxis. Patient is a full code History Interval history: Seen and examined the patient at the bedside Patient's chart and medications reviewed no new events reported by nursing CTA chest was negative for PE Hospitalist Physical - Constitutional Vitals: Temp Pulse Resp BP Pulse Ox 99.8 F H 69 14 90/45 94 12/24/21 13:05 12/24/21 14:00 12/24/21 13:05 12/24/21 13:05 12/24/21 13:05 General appearance: Present: no acute distress, well-nourished, disheveled - EENT Eyes: Present: PERRL, EOM intact - Neck Neck: Present: supple, normal ROM - Respiratory Respiratory effort: normal Respiratory: bilateral: diminished, negative: rales, rhonchi, wheezing - Cardiovascular Rhythm: regular Heart Sounds: Present: S1 & S2 - Extremities Extremities: no ischemia, No edema - Abdominal General gastrointestinal: soft, non-tender, non-distended, normal bowel sounds - Integumentary Integumentary: Present: clear, warm - Psychiatric Psychiatric: appropriate mood/affect, cooperative - Neurologic Neurologic: CNII-XII intact, moves all extremities HEART Score - HEART Score Troponin: Troponin T 0.062 ng/mL (0.00-0.029) H 12/13/21 22:49 Results - Labs CBC & Chem 7: 12/23/21 04:52 12/24/21 12:02 Labs: Laboratory Last Values WBC 10.0 K/mm3 (4.5-11.0) 12/23/21 04:52 RBC 4.14 M/mm3 (3.65-5.03) 12/23/21 04:52 Hgb 10.6 gm/dl (11.8-15.2) L 12/23/21 04:52 Hct 33.9 % (35.5-45.6) L 12/23/21 04:52 MCV 82 fl (84-94) L 12/23/21 04:52 MCH 26 pg (28-32) L 12/23/21 04:52 MCHC 31 % (32-34) L 12/23/21 04:52 RDW 20.3 % (13.2-15.2) H 12/23/21 04:52 Plt Count 77 K/mm3 (140-440) L 12/23/21 04:52 Lymph % (Auto) 6.6 % (13.4-35.0) L 12/13/21 22:49 [place] % (Auto) 11.0 % (0.0-7.3) H 12/13/21 22:49 Eos % (Auto) 0.1 % (0.0-4.3) 12/13/21 22:49 Baso % (Auto) 0.3 % (0.0-1.8) 12/13/21 22:49 Lymph # (Auto) 0.9 K/mm3 (1.2-5.4) L 12/13/21 22:49 [place] # (Auto) 1.4 K/mm3 (0.0-0.8) H 12/13/21 22:49 Eos # (Auto) 0.0 K/mm3 (0.0-0.4) 12/13/21 22:49 Baso # (Auto) 0.0 K/mm3 (0.0-0.1) 12/13/21 22:49 Add Manual Diff Complete 12/23/21 04:52 Total Counted 100 12/23/21 04:52 Seg Neutrophils % 82.0 % (40.0-70.0) H 12/13/21 22:49 Seg Neuts % (Manual) 86.0 % (40.0-70.0) H 12/23/21 04:52 Band Neutrophils % 0 % 12/23/21 04:52 Lymphocytes % (Manual) 2.0 % (13.4-35.0) L 12/23/21 04:52 Reactive Lymphs % (Man) 0 % 12/23/21 04:52 Monocytes % (Manual) 6.0 % (0.0-7.3) 12/23/21 04:52 Eosinophils % (Manual) 6.0 % (0.0-4.3) H 12/23/21 04:52 Basophils % (Manual) 0 % (0.0-1.8) 12/23/21 04:52 Metamyelocytes % 0 % 12/23/21 04:52 Myelocytes % 0 % 12/23/21 04:52 Promyelocytes % 0 % 12/23/21 04:52 Blast Cells % 0 % 12/23/21 04:52 Nucleated RBC % Not Reportable 12/23/21 04:52 Seg Neutrophils # 10.6 K/mm3 (1.8-7.7) H 12/13/21 22:49 Seg Neutrophils # Man 8.6 K/mm3 (1.8-7.7) H 12/23/21 04:52 Band Neutrophils # 0.0 K/mm3 12/23/21 04:52 Lymphocytes # (Manual) 0.2 K/mm3 (1.2-5.4) L 12/23/21 04:52 Abs React Lymphs (Man) 0.0 K/mm3 12/23/21 04:52 Monocytes # (Manual) 0.6 K/mm3 (0.0-0.8) 12/23/21 04:52 Eosinophils # (Manual) 0.6 K/mm3 (0.0-0.4) H 12/23/21 04:52 Basophils # (Manual) 0.0 K/mm3 (0.0-0.1) 12/23/21 04:52 Metamyelocytes # 0.0 K/mm3 12/23/21 04:52 Myelocytes # 0.0 K/mm3 12/23/21 04:52 Promyelocytes # 0.0 K/mm3 12/23/21 04:52 Blast Cells # 0.0 K/mm3 12/23/21 04:52 WBC Morphology Not Reportable 12/23/21 04:52 Hypersegmented Neuts Not Reportable 12/23/21 04:52 Hyposegmented Neuts Not Reportable 12/23/21 04:52 Hypogranular Neuts Not Reportable 12/23/21 04:52 Smudge Cells Not Reportable 12/23/21 04:52 Toxic Granulation Not Reportable 12/23/21 04:52 Toxic Vacuolation Not Reportable 12/23/21 04:52 Dohle Bodies Not Reportable 12/23/21 04:52 Pelger-Huet Anomaly Not Reportable 12/23/21 04:52 Sarah Rods Not Reportable 12/23/21 04:52 Platelet Estimate Consistent w auto 12/23/21 04:52 Clumped Platelets Not Reportable 12/23/21 04:52 Plt Clumps, EDTA Not Reportable 12/23/21 04:52 Large Platelets Not Reportable 12/23/21 04:52 Giant Platelets Not Reportable 12/23/21 04:52 Platelet Satelliting Not Reportable 12/23/21 04:52 Plt Morphology Comment Not Reportable 12/23/21 04:52 RBC Morphology Not Reportable 12/23/21 04:52 Dimorphic RBCs Not Reportable 12/23/21 04:52 Polychromasia Not Reportable 12/23/21 04:52 Hypochromasia 1+ 12/23/21 04:52 Poikilocytosis Not Reportable 12/23/21 04:52 Anisocytosis 1+ 12/23/21 04:52 Microcytosis Not Reportable 12/23/21 04:52 Macrocytosis Not Reportable 12/23/21 04:52 Spherocytes Not Reportable 12/23/21 04:52 Pappenheimer Bodies Not Reportable 12/23/21 04:52 Sickle Cells Not Reportable 12/23/21 04:52 Target Cells Not Reportable 12/23/21 04:52 Tear Drop Cells Not Reportable 12/23/21 04:52 Ovalocytes Not Reportable 12/23/21 04:52 Helmet Cells Not Reportable 12/23/21 04:52 [place] Bodies Not Reportable 12/23/21 04:52 [place] Rings Not Reportable 12/23/21 04:52 [place] Cells Not Reportable 12/23/21 04:52 Bite Cells Not Reportable 12/23/21 04:52 Crenated Cell Not Reportable 12/23/21 04:52 Elliptocytes Not Reportable 12/23/21 04:52 Acanthocytes (Spur) Not Reportable 12/23/21 04:52 Rouleaux Not Reportable 12/23/21 04:52 Hemoglobin C Crystals Not Reportable 12/23/21 04:52 Schistocytes Not Reportable 12/23/21 04:52 Malaria parasites Not Reportable 12/23/21 04:52 Jigar Bodies Not Reportable 12/23/21 04:52 Hem Pathologist Commnt No 12/23/21 04:52 PT 14.8 Sec. (12.2-14.9) 12/15/21 19:05 INR 1.04 (0.87-1.13) 12/15/21 19:05 APTT 105.5 Sec. (24.2-36.6) H* 12/15/21 19:05 Thrombin Time 18.7 Sec. (15.1-19.6) 12/13/21 22:49 D-Dimer 1278.36 ng/mlDDU (0-234) H 12/14/21 07:14 Heparin Anti-Xa Level 0.82 U.I./ml (0.3-0.7) H 12/16/21 03:54 VBG pH 7.393 (7.320-7.420) 12/13/21 22:49 Sodium 140 mmol/L (137-145) D 12/24/21 12:02 Potassium 3.8 mmol/L (3.6-5.0) 12/24/21 12:02 Chloride 109.7 mmol/L (98-107) H 12/24/21 12:02 Carbon Dioxide 22 mmol/L (22-30) 12/24/21 12:02 Anion Gap 12 mmol/L 12/24/21 12:02 BUN 25 mg/dL (9-20) H 12/24/21 12:02 Creatinine 0.9 mg/dL (0.8-1.3) 12/24/21 12:02 Estimated GFR > 60 ml/min 12/24/21 12:02 BUN/Creatinine Ratio 28 % 12/24/21 12:02 Glucose 228 mg/dL (75-100) H 12/24/21 12:02 POC Glucose 222 mg/dL (70-105) H 12/24/21 17:04 Hemoglobin A1c 7.6 % (4-6) H 12/16/21 17:35 Lactic Acid 1.70 mmol/L (0.7-2.0) 12/14/21 19:48 Calcium 7.9 mg/dL (8.4-10.2) L 12/24/21 12:02 Magnesium 2.30 mg/dL (1.7-2.3) 12/13/21 22:49 Ferritin 412.0 ng/mL (30.0-300.0) H 12/14/21 10:07 Total Bilirubin 0.30 mg/dL (0.1-1.2) 12/14/21 10:07 AST 21 units/L (5-40) 12/14/21 10:07 ALT 13 units/L (7-56) 12/14/21 10:07 Alkaline Phosphatase 176 units/L (35-129) H 12/14/21 10:07 Ammonia 10.0 umol/L (25-60) L 12/13/21 22:49 Lactate Dehydrogenase 205 units/L (91-180) H 12/14/21 10:07 Total Creatine Kinase 17 units/L (55-170) L 12/13/21 22:49 CK-MB (CK-2) 1.3 ng/mL (0.0-4.0) 12/13/21 22:49 CK-MB (CK-2) Rel Index 7.6 (0-4) H 12/13/21 22:49 Troponin T 0.062 ng/mL (0.00-0.029) H 12/13/21 22:49 C-Reactive Protein 3.90 mg/dL (0.00-1.30) H 12/14/21 10:07 Total Protein 7.4 g/dL (6.3-8.2) 12/14/21 10:07 Albumin 3.5 g/dL (3.9-5) L 12/14/21 10:07 Albumin/Globulin Ratio 0.9 % 12/14/21 10:07 Triglycerides 250 mg/dL (2-149) H 12/13/21 22:49 Cholesterol 185 mg/dL (50-199) 12/13/21 22:49 LDL Cholesterol Direct 87 mg/dL (50-130) 12/13/21 22:49 HDL Cholesterol 27 mg/dL (40-59) L 12/13/21 22:49 Cholesterol/HDL Ratio 6.85 % 12/13/21 22:49 Procalcitonin 0.16 ng/mL (<0.15) 12/14/21 10:07 TSH 0.616 mlU/mL (0.270-4.200) 12/13/21 22:49 Free T4 1.45 ng/dL (0.76-1.46) 12/13/21 22:49 Urine Color Straw (Yellow) 12/18/21 23:00 Urine Turbidity Slightly cloudy (Clear) 12/18/21 23:00 Urine pH 6.0 (5.0-7.0) 12/18/21 23:00 Ur Specific [place] 1.010 (1.003-1.030) 12/18/21 23:00 Urine Protein 30 mg/dl mg/dL (Negative) 12/18/21 23:00 Urine Glucose (UA) Trace mg/dL (Negative) 12/18/21 23:00 Urine Ketones Neg mg/dL (Negative) 12/18/21 23:00 Urine Blood Large (Negative) A 12/18/21 23:00 Urine Nitrite Neg (Negative) 12/18/21 23:00 Ur Reducing Substances Not Reportable 12/18/21 23:00 Urine Bilirubin Neg (Negative) 12/18/21 23:00 Urine Ictotest Not Reportable 12/18/21 23:00 Urine Urobilinogen < 2.0 mg/dL (<2.0) 12/18/21 23:00 Ur Leukocyte Esterase Moderate (Negative) 12/18/21 23:00 Urine WBC (Auto) 18.0 /HPF (0.0-6.0) H 12/18/21 23:00 Urine RBC (Auto) 121.0 /HPF (0.0-6.0) 12/18/21 23:00 U Epithel Cells (Auto) < 1.0 /HPF (0-13.0) 12/18/21 23:00 Urine Bacteria (Auto) 1+ /HPF (Negative) 12/18/21 23:00 Urine Mucus Few /HPF 12/18/21 23:00 Urine Yeast (Budding) 3+ /HPF 12/18/21 23:00 Plasma/Serum Alcohol < 0.01 % (0-0.07) 12/13/21 22:49 Coronavirus (PCR) Negative (Negative) 12/14/21 10:50 Microbiology: Microbiology 12/19/21 10:27 Peripheral/Venous Blood Culture - Final NO GROWTH AFTER 5 DAYS [place]/IV: Voiding Method Indwelling Catheter Active Medications - Current Medications Current Medications: Generic Name Dose Route Start Last Admin Trade Name Freq PRN Reason Stop Dose Admin Acetaminophen 650 mg 12/14/21 00:30 12/24/21 16:51 Acetaminophen 325 Mg Tab PO 650 mg Q4H PRN Administration Pain MILD(1-3)/Fever >100.5/ROGERS Albuterol 2.5 mg 12/14/21 00:30 Albuterol 2.5 Mg/3 Ml Nebu IH Q3HRT PRN Shortness Of Breath Lipase/Protease/Amylase 1 each 12/17/21 11:46 Lipase 10,500/Protease 25,000/Amylase 43,750 (Units) Dr Mariee FEEDTUBE PRN PRN For Clogged Feeding Tube Aspirin 81 mg 12/14/21 10:00 12/24/21 09:39 Aspirin Ec 81 Mg Tab PO 81 mg QDAY ALEXSANDRA Administration Atorvastatin Calcium 80 mg 12/14/21 22:00 12/23/21 21:39 Atorvastatin 40 Mg Tab PO 80 mg QHS ALEXSANDRA Administration Carvedilol 3.125 mg 12/14/21 10:00 12/24/21 09:39 Carvedilol 3.125 Mg Tab PO 3.125 mg BID ALEXSANDRA Administration Clopidogrel Bisulfate 75 mg 12/17/21 10:00 12/24/21 09:39 Clopidogrel 75 Mg Tab PO 75 mg QDAY ALEXSANDRA Administration Dextrose 50 ml 12/14/21 00:30 Dextrose 50% In Water (25gm) 50 Ml Syringe IV Q30MIN PRN Hypoglycemia Protocol Famotidine 20 mg 12/17/21 10:00 12/24/21 09:39 Famotidine 20 Mg Tab PO 20 mg DAILY ALEXSANDRA Administration Fluconazole 100 mg 12/22/21 11:00 12/24/21 09:39 Fluconazole 100 Mg Tab PO 12/28/21 10:01 100 mg QDAY ALEXSANDRA Administration Protocol Heparin Sodium (Porcine) 5,000 unit 12/16/21 14:00 12/24/21 14:37 Heparin 5,000 Unit/1 Ml Vial SUB-Q 5,000 unit Q8HR ALEXSANDRA Administration Potassium Chloride 20 meq/ 1,010 mls @ 60 mls/hr 12/22/21 10:00 12/23/21 22:39 Dextrose IV 60 mls/hr DIRECT ALEXSANDRA Administration Insulin Human Isoph/Insulin Regular 25 unit 12/20/21 17:00 12/24/21 17:04 Insulin Nph/Regular 70/30 Inj SUB-Q 25 unit BIDDIAB ALEXSANDAR Administration Insulin Human Lispro 0 unit 12/14/21 06:00 12/24/21 18:27 Insulin Lispro 100 Unit/Ml SUB-Q 3 unit Q6HR ALEXSANDRA Administration Protocol Labetalol HCl 10 mg 12/14/21 00:30 Labetalol 20 Mg/4 Ml Inj IV Q5MIN PRN to maintain SBP < 180 Morphine Sulfate 2 mg 12/14/21 00:30 12/23/21 10:11 Morphine 2 Mg/1 Ml Inj IV 2 mg Q4H PRN Administration Pain, Moderate (4-6) Morphine Sulfate 4 mg 12/14/21 00:30 Morphine 4 Mg/1 Ml Inj IV Q4H PRN Pain , Severe (7-10) Ondansetron HCl 4 mg 12/14/21 00:30 Ondansetron 4 Mg/2 Ml Inj IV Q8H PRN Nausea And Vomiting Sertraline HCl 100 mg 12/14/21 10:00 12/24/21 09:39 Sertraline 100 Mg Tab PO 100 mg QDAY ALEXSANDRA Administration Simple Syrup 15 ml 12/17/21 11:46 Simple Syrup 15 Ml FEEDTUBE PRN PRN Hypoglycemia Simple Syrup 30 ml 12/17/21 11:46 Simple Syrup 15 Ml FEEDTUBE PRN PRN Hypoglycemia Sodium Bicarbonate 325 mg 12/17/21 11:46 Sodium Bicarbonate 325 Mg Tab FEEDTUBE PRN PRN For Clogged Feeding Tube Sodium Chloride 10 ml 12/14/21 10:00 12/24/21 09:40 Sodium Chloride 0.9% 10 Ml Flush Syringe IV 10 ml BID ALEXSANDRA Administration Sodium Chloride 10 ml 12/14/21 00:30 Sodium Chloride 0.9% 10 Ml Flush Syringe IV PRN PRN LINE FLUSH Nutrition/Malnutrition Assess - Dietary Evaluation Nutrition/Malnutrition Findings: Nutrition Notes Start: 12/14/21 14:50 Freq: Status: Active Protocol: Document 12/19/21 10:39 JARON (Rec: 12/19/21 11:03 JARON [email or web address]) Nutrition Notes Initial or Follow up Reassessment Current Diagnosis Acute Kidney Injury,CKD(stage I-IV),Diabetes,Hypertension, Stroke Other Pertinent Diagnosis Metabolic Encephalopathy, SIRS , Pleural Effusion, R-ICA Occlusion... Current Diet TF-Nepro w/CARBSTEADY @ 35 ml/ hr (since L 12/17). Labs/Tests 12/19: Na 152, Cl 114.1, CO2 21, BUN 115, Crea 3.6, Glu 294 , HbA1c 7.6. Pertinent Medications 12/19: Vit C, Vit D3, Humulin 70/30 15U, Humalog 4U, ZnSO4, others nutritionally unremarkable. Height 5 ft 7 in Weight 81.6 kg [place] Body Weight (kg) 67.27 BMI 28.1 Weight change and time frame 6.6 Kg body weight loss in 2 days reported. Weight Status Overweight Subjective/Other Information RD consult for routine F/U on TF tolerance/continuation. TF continues as prescribed, well tolerated, according to RN notes. Pt is on Room Air, O2 saturation @ 97%, according to Physical Assessment History notes. Percent of energy/protein needs met: Prescribed TF-Nepro w/ CARBSTEADY @ 35 ml/hr provides for energy/protein needs (1, 530 Kcal/69 g) during LOS, 86% Kcal; 100% AA. Burn Absent Trauma Absent GI Symptoms None Food Allergy No Skin Integrity/Comment Unspecified Dryness area of concern Current % PO Other Minimum of two criteria No #1 Nutrition Diagnosis Inadequate oral intake Diagnosis Progress(for reassessment Continues documentation) Is patient on ventilator? No Is Patient Ambulatory and/or Out of Bed No REE-([facility]-confined to bed) 1876.812 Kcal/Kg value to use for calculation 22 Approximate Energy Requirements Using 1795 kcal/Kg Calculation Used for Recommendations Kcal/kg Additional Notes Protein: 0.6-0.8 g/Kg ABW; 46- 62 g/day. Fluids: 1 ml/Kcal, or as per MD. Nutrition Intervention Nutrition Support: Continue TF-Nepro w/CARBSTEADY @ 35 ml/hr. Flush: 200 ml water Q 4 hr, or as per MD. Kcal 1,530 Protein (gm) 69 Carbohydrates (gm) 137 Fat (gm) 82 Fluid (mL) 618 Fiber (gm) 11 % RDI: 86% Kcal; 100% AA. Goal #1 Provide at least 75% of energy /protein needs through Enteral Feeding during LOS. Goal #2 Maintain body weight within +/ -3% of admission body weight during LOS. Follow-Up By: 12/26/21 Additional Comments Continue monitoring TF tolerance and BM.
[2021-12-25] MEDS: INSULIN LISPRO 100 UNIT/ML SUB-Q SCH ×4 (00:10→18:01)
[2021-12-25] MEDS: HEPARIN 5,000 UNIT/1 ML VIAL SUB-Q SCH ×3 (05:44→22:41)
--- NOTE | 2021-12-25 08:12 | Discharge Summary ---
Providers - Providers Date of Admission: 12/14/21 03:30 Date of discharge: 12/25/21 Attending physician: JACKELYN BYRD 12/14/21 00:30 Consult to Dietitian/Nutrition [CONS] Routine Physician Instructions: Reason For Exam: for tube feeding/pt has a peg Reason for Consult: Diet education Occupational Therapy Evaluate and Treat [CONS] Routine Comment: Reason For Exam: Neuro deficits Physical Therapy Evaluation and Treat [CONS] Routine Comment: Reason For Exam: Neuro deficits 12/15/21 08:43 Consult to Physician [CONS] Routine Comment: Consulting Provider: ALMAZ CALDERON Physician Instructions: Reason For Exam: cva 12/15/21 08:44 Speech Therapy Evaluation and Treat [CONS] Routine Reason For Exam: cva 12/15/21 08:47 Consult to Physician [CONS] Routine Comment: Consulting Provider: OLGA BARRY Physician Instructions: Reason For Exam: RT coronary artery stenosis 12/15/21 14:12 Consult to Physician [CONS] Routine Comment: Consulting Provider: MAHAMED MESSER Physician Instructions: Reason For Exam: MAURI 12/17/21 16:10 Consult to Physician [CONS] Routine Comment: Consulting Provider: KAMRYN MCNALLY Physician Instructions: Reason For Exam: URINE RETENTION Primary care physician: MICHAEL KNOX Hospitalization Reason for admission: Unresponsiveness/metabolic encephalopathy at the [facility] Condition: Good Pertinent studies: CT head CTA head CTA neck Echocardiogram Lower extremity venous Doppler Renal ultrasound Chest x-ray CT head CTA chest no evidence of PE small bibasilar effusions and associated atelectasis mild right basilar pneumonia Hospital course: Patient is a 66-year-old male with past medical history of CVA, diabetes was brought to the emergency room because of altered mental status. Patient is was sent from [facility] after he was noted to be unresponsive approximately 2 hours ago. Per nursing the patient is normally talkative. EMS was called and found the patient to be hypoxic to 88% on room air and patient was placed on a nonrebreather. The patient is currently unresponsive with eyes open Case discussed with tele-neurologist Dr. Ha-katnia last known well time of 09: 00 patient is not a tPA candidate. As patient is bedbound he is not a candidate for thrombectomy. 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 2. Small age-indeterminate right rice radiata white matter lacunar infarctions. No other occlusion or significant stenosis. Chest x-ray shows no acute pathology. Multiple electrolyte imbalance corrected, patient also has urinary tract infection received complete dose of antibiotics Blood pressures blood sugars monitored medications optimized Patient had abnormal VQ scan, after renal function improved CTA chest was obtained negative for PE Patient symptoms significantly improved today patient is comfortable, back to baseline Tolerating PEG feeds Physical examination unremarkable Hemodynamically and clinically stable at discharge Case management has set up SNF placement. Discharge diagnosis: -- UTI with sepsis, started on empiric antibiotics, ordered urine and blood culture -- Hypernatremia, continue half-normal saline, monitor BMP --Acute metabolic encephalopathy Likely possible acute CVA Admitted the patient to the medical telemetry. Acute metabolic encephalopathy secondary to CVA, urosepsis and MAURI. Aspirin 325 mg p.o. daily. Lipitor 40 mg p.o. daily. S/p CT head with CTA head and neck MRI brain could not be done as patient history could not be completed Ordered echocardiogram/ PT OT speech evaluation. Neurology consulted -- MAURI (acute kidney injury) with vasomotor nephropathy on CKD stage III - creatinine worsening Avoid nephrotoxic drug. Renally dose medication. Renal function now improving -- Diabetes type 2 Accu-Chek every 6 hours with Humalog low-dose coverage. Diabetic education -- Lactic acidosis, improved with hydration -- Pleural effusion Oxygen via nasal cannula 3 L/min. DuoNeb via nebulizer every 4 hours. Albuterol via nebulizer every 4 hours as needed. We will monitor the patient closely. If needed will consult pulmonary --Acute hypoxic respiratory failure on admission, likely from pleural effusion --Abnormal VQ scan, holding off heparin drip for now as patient might have acute CVA Need repeat CTA chest when renal function allows to confirm the diagnosis of PE Lower extremity venous Doppler is negative -- Mild protein calorie malnutrition -- DVT prophylaxis Heparin 5000 units subcu every 12 hours for DVT prophylaxis. Pepcid 20 mg IV every 12 hours for GI prophylaxis. Patient is a full code DC planning per case management CM [facility] Stable at discharge today Disposition: [facility] Final Discharge Diagnosis (Prints w/discharge instructions): UTI with sepsis received antibiotics. Hyponatremia resolved. Acute metabolic encephalopathy Baseline. Acute kidney injury on chronic kidney disease 3[vasomotor nephropathy]. Type 2 diabetes mellitus. Lactic acidosis resolved. Pleural effusion supportive care. Acute hypoxic respiratory failure improved. Abnormal VQ scan/negative PE on's CTA. Mild protein calorie malnutrition Time spent for discharge: 40 min Core Measure Documentation - Palliative Care Palliative Care/ Comfort Measures: Not Applicable - Core Measures Any of the following diagnoses?: none Exam - Constitutional Vitals: Temp Pulse Resp BP Pulse Ox 99.9 F H 65 17 127/44 97 12/24/21 21:59 12/25/21 06:00 12/24/21 21:59 12/25/21 05:27 12/25/21 05:27 General appearance: Present: no acute distress, well-nourished - EENT Eyes: Present: PERRL, EOM intact - Neck Neck: Present: supple, normal ROM - Respiratory Respiratory effort: normal Respiratory: bilateral: diminished, negative: rales, rhonchi, wheezing - Cardiovascular Rhythm: regular Heart Sounds: Present: S1 & S2 - Extremities Extremities: no ischemia, No edema - Abdominal General gastrointestinal: Present: soft, non-tender, non-distended, normal bowel sounds - Integumentary Integumentary: Present: clear, warm - Musculoskeletal Musculoskeletal: strength equal bilaterally, generalized weakness - Psychiatric Psychiatric: appropriate mood/affect, cooperative - Neurologic Neurologic: moves all extremities Plan Activity: advance as tolerated, fall precautions Diet: other (Tube feeding) Additional Instructions: Fall precautions, aspiration precautions. Tube feeding per protocol. PEG care. If you have worsening symptoms contact MD or go to the nearest emergency room as needed. Do not remove the [place], follow-up with urologist per schedule Follow up with: MICHAEL KNOX MD [Primary Care Provider] - 3-5 Days VENUS BROOKE MD [Staff Physician] - 7 Days CHARAN PATEL MD [Staff Physician] - 7 Days Prescriptions: Torsemide [Demadex] 20 mg PO QDAY #30 Sodium Bicarbonate 325 mg FEEDTUBE PRN PRN #30 tablet PRN Reason: For Clogged Feeding Tube Sertraline [Zoloft] 100 mg PO QDAY #30
[2021-12-25] MEDS: INSULIN NPH/REGULAR 70/30 INJ SUB-Q SCH ×2 (08:22→17:54)
[2021-12-25 08:36] LABS: BUN/Creatinine Ratio 29; Blood Urea Nitrogen 23 mg/dL (9-20); Hemolysis Index 9
[2021-12-25] MEDS: SERTRALINE 100 MG TAB PO SCH (09:46)
[2021-12-25] MEDS: ASPIRIN EC 81 MG TAB PO SCH (09:46)
[2021-12-25] MEDS: FLUCONAZOLE 100 MG TAB PO SCH (09:46)
[2021-12-25] MEDS: FAMOTIDINE 20 MG TAB PO SCH (09:46)
[2021-12-25] MEDS: CLOPIDOGREL 75 MG TAB PO SCH (09:46)
[2021-12-25] MEDS: carvediloL 3.125 MG TAB PO SCH ×2 (09:46→22:42)
--- NOTE | 2021-12-25 09:46 | Progress Note ---
Assessment and Plan Impression: * Acute kidney injury secondary to volume depletion/dehydration * Hypernatremia * Hypokalemia Plan: * Renal function is stable * Lytes wnl * Continue Free H20 w/ TF - 300ml [id number] * Replete lytes prn * Dose medications for renal function * Avoid potential nephrotoxins * Stable for d/c from a renal standpoint Subjective Date of service: 12/25/21 Interval history: Patient has no complaints today Objective - Vital Signs Vital signs: Vital Signs - 12hr 12/24/21 12/24/21 12/25/21 21:59 22:00 05:27 Temperature 99.9 F H Pulse Rate 64 64 64 Pulse Rate [ 64 Dorsalis Pedis] Respiratory 17 Rate Blood Pressure 145/49 127/44 Blood Pressure 145/49 [Left] O2 Sat by Pulse 98 98 97 Oximetry 12/25/21 12/25/21 06:00 08:31 Temperature Pulse Rate 65 66 Pulse Rate [ Dorsalis Pedis] Respiratory Rate Blood Pressure Blood Pressure [Left] O2 Sat by Pulse 97 Oximetry - General Appearance General appearance: well-developed, well-nourished EENT: ATNC Cardiology: regular, S1S2 Gastrointestinal: normal, no tenderness, no distended Integumentary: warm and dry - Lab 12/23/21 04:52 12/26/21 04:29 Most recent lab results Calcium 8.0 mg/dL (8.4-10.2) L 12/25/21 07:46 Magnesium 2.30 mg/dL (1.7-2.3) 12/13/21 22:49 Medications & Allergies - Medications Allergies/Adverse Reactions: Allergies No Known Allergies Allergy (Verified 12/09/21 12:16) Home Medications: Home Medications Medication Instructions Recorded Confirmed Last Taken Type cephALEXin [Keflex] 500 mg PO Q6HR 7 Days #28 capsule 12/09/21 12/14/21 Unknown Rx Aspirin [Cass Aspirin EC] 81 mg PO QDAY 12/14/21 12/14/21 Unknown History Atorvastatin [Lipitor Tab] 80 mg PO QHS 12/14/21 12/14/21 Unknown History Dapagliflozin Propanediol [Farxiga] 10 mg PO QDAY 12/14/21 12/14/21 Unknown History Insulin Detemir [Levemir VIAL] 25 unit SQ QHS 12/14/21 12/14/21 Unknown History Insulin Lispro [Admelog] 100 unit SQ ACHS 12/14/21 12/14/21 Unknown History Sertraline [Zoloft] 100 mg PO QDAY 12/14/21 12/14/21 Unknown History Tamsulosin [Flomax] 0.4 mg PO QDAY 12/14/21 12/14/21 Unknown History Torsemide [Demadex] 20 mg PO QDAY 12/14/21 12/14/21 Unknown History carvediloL [Coreg] 3.125 mg PO BID 12/14/21 12/14/21 Unknown History Active Medications: Generic Name Dose Route Start Last Admin Trade Name Freq PRN Reason Stop Dose Admin Acetaminophen 650 mg 12/14/21 00:30 12/24/21 16:51 Acetaminophen 325 Mg Tab PO 650 mg Q4H PRN Administration Pain MILD(1-3)/Fever >100.5/ROGERS Albuterol 2.5 mg 12/14/21 00:30 Albuterol 2.5 Mg/3 Ml Nebu IH Q3HRT PRN Shortness Of Breath Lipase/Protease/Amylase 1 each 12/17/21 11:46 Lipase 10,500/Protease 25,000/Amylase 43,750 (Units) Dr Mariee FEEDTUBE PRN PRN For Clogged Feeding Tube Aspirin 81 mg 12/14/21 10:00 12/24/21 09:39 Aspirin Ec 81 Mg Tab PO 81 mg QDAY ALEXSANDRA Administration Atorvastatin Calcium 80 mg 12/14/21 22:00 12/24/21 22:01 Atorvastatin 40 Mg Tab PO 80 mg QHS ALEXSANDRA Administration Carvedilol 3.125 mg 12/14/21 10:00 12/24/21 22:00 Carvedilol 3.125 Mg Tab PO 3.125 mg BID ALEXSANDRA Administration Clopidogrel Bisulfate 75 mg 12/17/21 10:00 12/24/21 09:39 Clopidogrel 75 Mg Tab PO 75 mg QDAY ALEXSANDRA Administration Dextrose 50 ml 12/14/21 00:30 Dextrose 50% In Water (25gm) 50 Ml Syringe IV Q30MIN PRN Hypoglycemia Protocol Famotidine 20 mg 12/17/21 10:00 12/24/21 09:39 Famotidine 20 Mg Tab PO 20 mg DAILY ALEXSANDRA Administration Fluconazole 100 mg 12/22/21 11:00 12/24/21 09:39 Fluconazole 100 Mg Tab PO 12/28/21 10:01 100 mg QDAY ALEXSANDRA Administration Protocol Heparin Sodium (Porcine) 5,000 unit 12/16/21 14:00 12/25/21 05:44 Heparin 5,000 Unit/1 Ml Vial SUB-Q 5,000 unit Q8HR ALEXSANDRA Administration Potassium Chloride 20 meq/ 1,010 mls @ 60 mls/hr 12/22/21 10:00 12/23/21 22:39 Dextrose IV 60 mls/hr DIRECT ALEXSANDRA Administration Insulin Human Isoph/Insulin Regular 25 unit 12/20/21 17:00 12/25/21 08:22 Insulin Nph/Regular 70/30 Inj SUB-Q 25 unit BIDDIAB ALEXSANDRA Administration Insulin Human Lispro 0 unit 12/14/21 06:00 12/25/21 06:39 Insulin Lispro 100 Unit/Ml SUB-Q 2 unit Q6HR ALEXSANDRA Administration Protocol Labetalol HCl 10 mg 12/14/21 00:30 Labetalol 20 Mg/4 Ml Inj IV Q5MIN PRN to maintain SBP < 180 Morphine Sulfate 2 mg 12/14/21 00:30 12/23/21 10:11 Morphine 2 Mg/1 Ml Inj IV 2 mg Q4H PRN Administration Pain, Moderate (4-6) Morphine Sulfate 4 mg 12/14/21 00:30 Morphine 4 Mg/1 Ml Inj IV Q4H PRN Pain , Severe (7-10) Ondansetron HCl 4 mg 12/14/21 00:30 Ondansetron 4 Mg/2 Ml Inj IV Q8H PRN Nausea And Vomiting Sertraline HCl 100 mg 12/14/21 10:00 12/24/21 09:39 Sertraline 100 Mg Tab PO 100 mg QDAY ALEXSANDRA Administration Simple Syrup 15 ml 12/17/21 11:46 Simple Syrup 15 Ml FEEDTUBE PRN PRN Hypoglycemia Simple Syrup 30 ml 12/17/21 11:46 Simple Syrup 15 Ml FEEDTUBE PRN PRN Hypoglycemia Sodium Bicarbonate 325 mg 12/17/21 11:46 Sodium Bicarbonate 325 Mg Tab FEEDTUBE PRN PRN For Clogged Feeding Tube Sodium Chloride 10 ml 12/14/21 10:00 12/24/21 22:01 Sodium Chloride 0.9% 10 Ml Flush Syringe IV 10 ml BID ALEXSANDRA Administration Sodium Chloride 10 ml 12/14/21 00:30 Sodium Chloride 0.9% 10 Ml Flush Syringe IV PRN PRN LINE FLUSH
--- NOTE | 2021-12-25 20:27 | Progress Note ---
Assessment and Plan Assessment and plan: Assessment and plan: VQ scan done on admission showed intermediate probability for PE, heparin drip was on hold due to suspected CVA. Discussed with nephrology and Dr. Guevara cleared for CTA chest to be done as renal function has been stabilized. Initially history was suspected for acute CVA due to abnormal finding on CT scan of right coronary artery occlusion. MRI could not be done as patient could not complete history due to altered mental status and no family was found. Patient had repeat CT head after [address] which also remains normal without any abnormal findings. Patient mental condition currently improving with medical management. Patient was also evaluated by vascular and no occlusion seen intracranially. Will reattempt MRI brain and CTA of the chest to clarify the diagnosis. Addendum entered and electronically signed by ALICE ROMERO MD 12/22/21 16:18: Right carotid artery occlusion: CTA showed occlusion of right carotid artery during admission, however intracranially there is no occlusion seen Patient was evaluated by vascular surgery and recommended to continue medical management. Original Note: Assessment and Plan Patient is a 66-year-old male with past medical history of CVA, diabetes was brought to the emergency room because of altered mental status. Patient is was sent from [facility] after he was noted to be unresponsive approximately 2 hours ago. Per nursing the patient is normally talkative. EMS was called and found the patient to be hypoxic to 88% on room air and patient was placed on a nonrebreather. The patient is currently unresponsive with eyes open Case discussed with tele-neurologist Dr. Ha-given last known well time of 09: 00 patient is not a tPA candidate. As patient is bedbound he is not a candidate for thrombectomy. CTA shows occlusion of right carotid artery however intracranially there is no occlusion seen Imaging studies including a CT of the head showed There is occlusion of the right common carotid artery from its origin which extends to involve the entire right internal carotid artery with minimal retrograde flow in the distal right ICA. 2. Small age-indeterminate right rice radiata white matter lacunar infarctions. No other occlusion or significant stenosis. Chest x-ray shows no acute pathology. 12/15/21: At this time we will discontinue heparin drip until patient is seen by vascular surgery. MRI still pending, unsure if patient actually had a CVA would not want this to expand with the current heparin drip ordered. Patient does not show persistent hypoxia or in any acute respiratory distress at this time although on 2 L of oxygen with good sustained saturation. I will also obtain nephrology consultation due to acute on chronic CKD creatinine checked on November showed a creatinine of 2.3 although this is close to our recent time and not sure what his underlying baseline is. Continue seizure precautions. Will await for neurology input for possible EEG to rule out status epilepticus. Aspiration precautions. We will obtain a VQ scan at this time: Only perfusion study done, Ventilation study could not be done, its possible there may be a small clot, in anycase will discuss with nephrology if patient can get contrast for CTA. Hold off to heparin drip for now. 12/16: Mental status remains unchanged and this is why unable to complete MRI as we cannot complete the screening process. Seen by vascular and recommended to continue medical management until mental status improves. Plan to repeat CT brain tomorrow in the morning as we cannot do MRI. Renal function continued to get worse, continue IV fluid monitor blood glucose. Hold diuretics, nephrology following. 12/17: Worsening renal failure with current creatinine is 4.2, mild acidosis, bicarbonate around 21. Initiate on TF, monitor ins/os. Most likely etiology of his renal failure appears to be due to radiocontrast ex posure, hypoxemia, respiratory failure which likely resulted in acute tubular necrosis. cont to follow BMP, nephrology following 12/18: Cr slightly improved, Na 152 - will change fluid to 1/2NS, increase insulin dose to better control hyperglycemia, follow clinically 12/19. Sodium remains elevated, continue half-normal saline. UA suggestive for UTI initiated on empiric antibiotic, also ordered blood culture and urine culture. Creatinine trending down, follow BMP 12/20: Na level 162 today, change iv fluid to D5W, increase long acting insulin coverage, follow BMP 12/21: Na and Cr improving, cont d5W and free water, follow BMP. Mental status improving. 12/22: Sodium and creatinine level continue to improve. Creatinine 1.2 and sodium 151 today. Potassium noted to be low. Change fluid to D5W with KCl. Follow BMP. Mental function improving. Patient remains on supplemental O2. Need to follow-up with the stitch rubber for CTA chest: VQ scan obtained on admission showed intermediate probability for PE even though lower extremity venous Doppler was negative. Heparin drip has been on hold due to acute CVA. 12/23/2021; patient is more alert and awake today. Work-up is in progress. Patient needs consent for her CTA chest 12/24/2021; CTA chest negative for PE, possible discharge in 1 to 2 days if stable Patient will return to [facility], pending authorization 12/25/2021; patient waiting for placement, insurance company did not approve DC planning per case management Assessment and plan: -- UTI with sepsis, started on empiric antibiotics, ordered urine and blood culture -- Hypernatremia, continue half-normal saline, monitor BMP -- Acute metabolic encephalopathy Likely possible acute CVA Admitted the patient to the medical telemetry. Acute metabolic encephalopathy secondary to CVA, urosepsis and MAURI. Aspirin 325 mg p.o. daily. Lipitor 40 mg p.o. daily. S/p CT head with CTA head and neck MRI brain could not be done as patient history could not be completed Ordered echocardiogram/ PT OT speech evaluation. Neurology consulted -- MAURI (acute kidney injury) with vasomotor nephropathy on CKD stage III - creatinine worsening Avoid nephrotoxic drug. Renally dose medication. Renal function now improving -- Diabetes type 2 Accu-Chek every 6 hours with Humalog low-dose coverage. Diabetic education -- Lactic acidosis, improved with hydration -- Pleural effusion Oxygen via nasal cannula 3 L/min. DuoNeb via nebulizer every 4 hours. Albuterol via nebulizer every 4 hours as needed. We will monitor the patient closely. If needed will consult pulmonary --Acute hypoxic respiratory failure on admission, likely from pleural effusion --Abnormal VQ scan, holding off heparin drip for now as patient might have acute CVA Need repeat CTA chest when renal function allows to confirm the diagnosis of PE Lower extremity venous Doppler is negative -- DVT prophylaxis Heparin 5000 units subcu every 12 hours for DVT prophylaxis. Pepcid 20 mg IV every 12 hours for GI prophylaxis. Patient is a full code We will closely monitor the patient and adjust the management as needed Pending placement, pending insurance approval Plan of care reviewed with the patient nurse and case management History Interval history: I have seen and examined the patient at the bedside Patient's chart and medications reviewed No new events reported by the nursing Patient is medically stable for discharge Awaiting placement Hospitalist Physical - Constitutional Vitals: Temp Pulse Resp BP Pulse Ox 98.0 F 63 20 138/47 95 12/25/21 19:55 12/25/21 19:55 12/25/21 19:55 12/25/21 19:55 12/25/21 19:55 General appearance: Present: no acute distress, well-nourished, disheveled - EENT Eyes: Present: PERRL, EOM intact - Neck Neck: Present: supple, normal ROM - Respiratory Respiratory effort: normal Respiratory: bilateral: diminished, negative: rales, rhonchi, wheezing - Cardiovascular Rhythm: regular Heart Sounds: Present: S1 & S2 - Extremities Extremities: no ischemia, No edema - Abdominal General gastrointestinal: soft, non-tender, non-distended, normal bowel sounds - Integumentary Integumentary: Present: clear, warm - Psychiatric Psychiatric: appropriate mood/affect, cooperative - Neurologic Neurologic: CNII-XII intact, moves all extremities HEART Score - HEART Score Troponin: Troponin T 0.062 ng/mL (0.00-0.029) H 12/13/21 22:49 Results - Labs CBC & Chem 7: 12/23/21 04:52 12/25/21 07:46 Labs: Laboratory Last Values WBC 10.0 K/mm3 (4.5-11.0) 12/23/21 04:52 RBC 4.14 M/mm3 (3.65-5.03) 12/23/21 04:52 Hgb 10.6 gm/dl (11.8-15.2) L 12/23/21 04:52 Hct 33.9 % (35.5-45.6) L 12/23/21 04:52 MCV 82 fl (84-94) L 12/23/21 04:52 MCH 26 pg (28-32) L 12/23/21 04:52 MCHC 31 % (32-34) L 12/23/21 04:52 RDW 20.3 % (13.2-15.2) H 12/23/21 04:52 Plt Count 77 K/mm3 (140-440) L 12/23/21 04:52 Lymph % (Auto) 6.6 % (13.4-35.0) L 12/13/21 22:49 [place] % (Auto) 11.0 % (0.0-7.3) H 12/13/21 22:49 Eos % (Auto) 0.1 % (0.0-4.3) 12/13/21 22:49 Baso % (Auto) 0.3 % (0.0-1.8) 12/13/21 22:49 Lymph # (Auto) 0.9 K/mm3 (1.2-5.4) L 12/13/21 22:49 [place] # (Auto) 1.4 K/mm3 (0.0-0.8) H 12/13/21 22:49 Eos # (Auto) 0.0 K/mm3 (0.0-0.4) 12/13/21 22:49 Baso # (Auto) 0.0 K/mm3 (0.0-0.1) 12/13/21 22:49 Add Manual Diff Complete 12/23/21 04:52 Total Counted 100 12/23/21 04:52 Seg Neutrophils % 82.0 % (40.0-70.0) H 12/13/21 22:49 Seg Neuts % (Manual) 86.0 % (40.0-70.0) H 12/23/21 04:52 Band Neutrophils % 0 % 12/23/21 04:52 Lymphocytes % (Manual) 2.0 % (13.4-35.0) L 12/23/21 04:52 Reactive Lymphs % (Man) 0 % 12/23/21 04:52 Monocytes % (Manual) 6.0 % (0.0-7.3) 12/23/21 04:52 Eosinophils % (Manual) 6.0 % (0.0-4.3) H 12/23/21 04:52 Basophils % (Manual) 0 % (0.0-1.8) 12/23/21 04:52 Metamyelocytes % 0 % 12/23/21 04:52 Myelocytes % 0 % 12/23/21 04:52 Promyelocytes % 0 % 12/23/21 04:52 Blast Cells % 0 % 12/23/21 04:52 Nucleated RBC % Not Reportable 12/23/21 04:52 Seg Neutrophils # 10.6 K/mm3 (1.8-7.7) H 12/13/21 22:49 Seg Neutrophils # Man 8.6 K/mm3 (1.8-7.7) H 12/23/21 04:52 Band Neutrophils # 0.0 K/mm3 12/23/21 04:52 Lymphocytes # (Manual) 0.2 K/mm3 (1.2-5.4) L 12/23/21 04:52 Abs React Lymphs (Man) 0.0 K/mm3 12/23/21 04:52 Monocytes # (Manual) 0.6 K/mm3 (0.0-0.8) 12/23/21 04:52 Eosinophils # (Manual) 0.6 K/mm3 (0.0-0.4) H 12/23/21 04:52 Basophils # (Manual) 0.0 K/mm3 (0.0-0.1) 12/23/21 04:52 Metamyelocytes # 0.0 K/mm3 12/23/21 04:52 Myelocytes # 0.0 K/mm3 12/23/21 04:52 Promyelocytes # 0.0 K/mm3 12/23/21 04:52 Blast Cells # 0.0 K/mm3 12/23/21 04:52 WBC Morphology Not Reportable 12/23/21 04:52 Hypersegmented Neuts Not Reportable 12/23/21 04:52 Hyposegmented Neuts Not Reportable 12/23/21 04:52 Hypogranular Neuts Not Reportable 12/23/21 04:52 Smudge Cells Not Reportable 12/23/21 04:52 Toxic Granulation Not Reportable 12/23/21 04:52 Toxic Vacuolation Not Reportable 12/23/21 04:52 Dohle Bodies Not Reportable 12/23/21 04:52 Pelger-Huet Anomaly Not Reportable 12/23/21 04:52 Sarah Rods Not Reportable 12/23/21 04:52 Platelet Estimate Consistent w auto 12/23/21 04:52 Clumped Platelets Not Reportable 12/23/21 04:52 Plt Clumps, EDTA Not Reportable 12/23/21 04:52 Large Platelets Not Reportable 12/23/21 04:52 Giant Platelets Not Reportable 12/23/21 04:52 Platelet Satelliting Not Reportable 12/23/21 04:52 Plt Morphology Comment Not Reportable 12/23/21 04:52 RBC Morphology Not Reportable 12/23/21 04:52 Dimorphic RBCs Not Reportable 12/23/21 04:52 Polychromasia Not Reportable 12/23/21 04:52 Hypochromasia 1+ 12/23/21 04:52 Poikilocytosis Not Reportable 12/23/21 04:52 Anisocytosis 1+ 12/23/21 04:52 Microcytosis Not Reportable 12/23/21 04:52 Macrocytosis Not Reportable 12/23/21 04:52 Spherocytes Not Reportable 12/23/21 04:52 Pappenheimer Bodies Not Reportable 12/23/21 04:52 Sickle Cells Not Reportable 12/23/21 04:52 Target Cells Not Reportable 12/23/21 04:52 Tear Drop Cells Not Reportable 12/23/21 04:52 Ovalocytes Not Reportable 12/23/21 04:52 Helmet Cells Not Reportable 12/23/21 04:52 Greer-Heeney Bodies Not Reportable 12/23/21 04:52 Ramona Rings Not Reportable 12/23/21 04:52 Kwabena Cells Not Reportable 12/23/21 04:52 Bite Cells Not Reportable 12/23/21 04:52 Crenated Cell Not Reportable 12/23/21 04:52 Elliptocytes Not Reportable 12/23/21 04:52 Acanthocytes (Spur) Not Reportable 12/23/21 04:52 Rouleaux Not Reportable 12/23/21 04:52 Hemoglobin C Crystals Not Reportable 12/23/21 04:52 Schistocytes Not Reportable 12/23/21 04:52 Malaria parasites Not Reportable 12/23/21 04:52 Jigar Bodies Not Reportable 12/23/21 04:52 Hem Pathologist Commnt No 12/23/21 04:52 PT 14.8 Sec. (12.2-14.9) 12/15/21 19:05 INR 1.04 (0.87-1.13) 12/15/21 19:05 APTT 105.5 Sec. (24.2-36.6) H* 12/15/21 19:05 Thrombin Time 18.7 Sec. (15.1-19.6) 12/13/21 22:49 D-Dimer 1278.36 ng/mlDDU (0-234) H 12/14/21 07:14 Heparin Anti-Xa Level 0.82 U.I./ml (0.3-0.7) H 12/16/21 03:54 VBG pH 7.393 (7.320-7.420) 12/13/21 22:49 Sodium 140 mmol/L (137-145) 12/25/21 07:46 Potassium 3.7 mmol/L (3.6-5.0) 12/25/21 07:46 Chloride 109.2 mmol/L (98-107) H 12/25/21 07:46 Carbon Dioxide 22 mmol/L (22-30) 12/25/21 07:46 Anion Gap 13 mmol/L 12/25/21 07:46 BUN 23 mg/dL (9-20) H 12/25/21 07:46 Creatinine 0.8 mg/dL (0.8-1.3) 12/25/21 07:46 Estimated GFR > 60 ml/min 12/25/21 07:46 BUN/Creatinine Ratio 29 % 12/25/21 07:46 Glucose 193 mg/dL (75-100) H 12/25/21 07:46 POC Glucose 160 mg/dL (70-105) H 12/25/21 17:25 Hemoglobin A1c 7.6 % (4-6) H 12/16/21 17:35 Lactic Acid 1.70 mmol/L (0.7-2.0) 12/14/21 19:48 Calcium 8.0 mg/dL (8.4-10.2) L 12/25/21 07:46 Magnesium 2.30 mg/dL (1.7-2.3) 12/13/21 22:49 Ferritin 412.0 ng/mL (30.0-300.0) H 12/14/21 10:07 Total Bilirubin 0.30 mg/dL (0.1-1.2) 12/14/21 10:07 AST 21 units/L (5-40) 12/14/21 10:07 ALT 13 units/L (7-56) 12/14/21 10:07 Alkaline Phosphatase 176 units/L (35-129) H 12/14/21 10:07 Ammonia 10.0 umol/L (25-60) L 12/13/21 22:49 Lactate Dehydrogenase 205 units/L (91-180) H 12/14/21 10:07 Total Creatine Kinase 17 units/L (55-170) L 12/13/21 22:49 CK-MB (CK-2) 1.3 ng/mL (0.0-4.0) 12/13/21 22:49 CK-MB (CK-2) Rel Index 7.6 (0-4) H 12/13/21 22:49 Troponin T 0.062 ng/mL (0.00-0.029) H 12/13/21 22:49 C-Reactive Protein 3.90 mg/dL (0.00-1.30) H 12/14/21 10:07 Total Protein 7.4 g/dL (6.3-8.2) 12/14/21 10:07 Albumin 3.5 g/dL (3.9-5) L 12/14/21 10:07 Albumin/Globulin Ratio 0.9 % 12/14/21 10:07 Triglycerides 250 mg/dL (2-149) H 12/13/21 22:49 Cholesterol 185 mg/dL (50-199) 12/13/21 22:49 LDL Cholesterol Direct 87 mg/dL (50-130) 12/13/21 22:49 HDL Cholesterol 27 mg/dL (40-59) L 12/13/21 22:49 Cholesterol/HDL Ratio 6.85 % 12/13/21 22:49 Procalcitonin 0.16 ng/mL (<0.15) 12/14/21 10:07 TSH 0.616 mlU/mL (0.270-4.200) 12/13/21 22:49 Free T4 1.45 ng/dL (0.76-1.46) 12/13/21 22:49 Urine Color Straw (Yellow) 12/18/21 23:00 Urine Turbidity Slightly cloudy (Clear) 12/18/21 23:00 Urine pH 6.0 (5.0-7.0) 12/18/21 23:00 Ur Specific [place] 1.010 (1.003-1.030) 12/18/21 23:00 Urine Protein 30 mg/dl mg/dL (Negative) 12/18/21 23:00 Urine Glucose (UA) Trace mg/dL (Negative) 12/18/21 23:00 Urine Ketones Neg mg/dL (Negative) 12/18/21 23:00 Urine Blood Large (Negative) A 12/18/21 23:00 Urine Nitrite Neg (Negative) 12/18/21 23:00 Ur Reducing Substances Not Reportable 12/18/21 23:00 Urine Bilirubin Neg (Negative) 12/18/21 23:00 Urine Ictotest Not Reportable 12/18/21 23:00 Urine Urobilinogen < 2.0 mg/dL (<2.0) 12/18/21 23:00 Ur Leukocyte Esterase Moderate (Negative) 12/18/21 23:00 Urine WBC (Auto) 18.0 /HPF (0.0-6.0) H 12/18/21 23:00 Urine RBC (Auto) 121.0 /HPF (0.0-6.0) 12/18/21 23:00 U Epithel Cells (Auto) < 1.0 /HPF (0-13.0) 12/18/21 23:00 Urine Bacteria (Auto) 1+ /HPF (Negative) 12/18/21 23:00 Urine Mucus Few /HPF 12/18/21 23:00 Urine Yeast (Budding) 3+ /HPF 12/18/21 23:00 Plasma/Serum Alcohol < 0.01 % (0-0.07) 12/13/21 22:49 Coronavirus (PCR) Negative (Negative) 12/14/21 10:50 [place]/IV: Voiding Method Indwelling Catheter Active Medications - Current Medications Current Medications: Generic Name Dose Route Start Last Admin Trade Name Freq PRN Reason Stop Dose Admin Acetaminophen 650 mg 12/14/21 00:30 12/24/21 16:51 Acetaminophen 325 Mg Tab PO 650 mg Q4H PRN Administration Pain MILD(1-3)/Fever >100.5/ROGERS Albuterol 2.5 mg 12/14/21 00:30 Albuterol 2.5 Mg/3 Ml Nebu IH Q3HRT PRN Shortness Of Breath Lipase/Protease/Amylase 1 each 12/17/21 11:46 Lipase 10,500/Protease 25,000/Amylase 43,750 (Units) Dr Mariee FEEDTUBE PRN PRN For Clogged Feeding Tube Aspirin 81 mg 12/14/21 10:00 12/25/21 09:46 Aspirin Ec 81 Mg Tab PO 81 mg QDAY ALEXSANDRA Administration Atorvastatin Calcium 80 mg 12/14/21 22:00 12/24/21 22:01 Atorvastatin 40 Mg Tab PO 80 mg QHS ALEXSANDRA Administration Carvedilol 3.125 mg 12/14/21 10:00 12/25/21 09:46 Carvedilol 3.125 Mg Tab PO 3.125 mg BID ALEXSANDRA Administration Clopidogrel Bisulfate 75 mg 12/17/21 10:00 12/25/21 09:46 Clopidogrel 75 Mg Tab PO 75 mg QDAY ALEXSANDRA Administration Dextrose 50 ml 12/14/21 00:30 Dextrose 50% In Water (25gm) 50 Ml Syringe IV Q30MIN PRN Hypoglycemia Protocol Famotidine 20 mg 12/17/21 10:00 12/25/21 09:46 Famotidine 20 Mg Tab PO 20 mg DAILY ALEXSANDRA Administration Fluconazole 100 mg 12/22/21 11:00 12/25/21 09:46 Fluconazole 100 Mg Tab PO 12/28/21 10:01 100 mg QDAY ALEXSANDRA Administration Protocol Heparin Sodium (Porcine) 5,000 unit 12/16/21 14:00 12/25/21 13:30 Heparin 5,000 Unit/1 Ml Vial SUB-Q 5,000 unit Q8HR ALEXSANDRA Administration Potassium Chloride 20 meq/ 1,010 mls @ 60 mls/hr 12/22/21 10:00 12/23/21 22:39 Dextrose IV 60 mls/hr DIRECT ALEXSANDRA Administration Insulin Human Isoph/Insulin Regular 25 unit 12/20/21 17:00 12/25/21 17:54 Insulin Nph/Regular 70/30 Inj SUB-Q 25 unit BIDDIAB ALEXSANDRA Administration Insulin Human Lispro 0 unit 12/14/21 06:00 12/25/21 18:01 Insulin Lispro 100 Unit/Ml SUB-Q 2 unit Q6HR ALEXSANDRA Administration Protocol Labetalol HCl 10 mg 12/14/21 00:30 Labetalol 20 Mg/4 Ml Inj IV Q5MIN PRN to maintain SBP < 180 Morphine Sulfate 2 mg 12/14/21 00:30 12/23/21 10:11 Morphine 2 Mg/1 Ml Inj IV 2 mg Q4H PRN Administration Pain, Moderate (4-6) Morphine Sulfate 4 mg 12/14/21 00:30 Morphine 4 Mg/1 Ml Inj IV Q4H PRN Pain , Severe (7-10) Ondansetron HCl 4 mg 12/14/21 00:30 Ondansetron 4 Mg/2 Ml Inj IV Q8H PRN Nausea And Vomiting Sertraline HCl 100 mg 12/14/21 10:00 12/25/21 09:46 Sertraline 100 Mg Tab PO 100 mg QDAY ALEXSANDRA Administration Simple Syrup 15 ml 12/17/21 11:46 Simple Syrup 15 Ml FEEDTUBE PRN PRN Hypoglycemia Simple Syrup 30 ml 12/17/21 11:46 Simple Syrup 15 Ml FEEDTUBE PRN PRN Hypoglycemia Sodium Bicarbonate 325 mg 12/17/21 11:46 Sodium Bicarbonate 325 Mg Tab FEEDTUBE PRN PRN For Clogged Feeding Tube Sodium Chloride 10 ml 12/14/21 10:00 12/25/21 09:48 Sodium Chloride 0.9% 10 Ml Flush Syringe IV 10 ml BID ALEXSANDRA Administration Sodium Chloride 10 ml 12/14/21 00:30 Sodium Chloride 0.9% 10 Ml Flush Syringe IV PRN PRN LINE FLUSH Nutrition/Malnutrition Assess - Dietary Evaluation Nutrition/Malnutrition Findings: Nutrition Notes Start: 12/14/21 14:50 Freq: Status: Active Protocol: Document 12/19/21 10:39 JARON (Rec: 12/19/21 11:03 JARON [id number]) Nutrition Notes Initial or Follow up Reassessment Current Diagnosis Acute Kidney Injury,CKD(stage I-IV),Diabetes,Hypertension, Stroke Other Pertinent Diagnosis Metabolic Encephalopathy, SIRS , Pleural Effusion, R-ICA Occlusion... Current Diet TF-Nepro w/CARBSTEADY @ 35 ml/ hr (since L 12/17). Labs/Tests 12/19: Na 152, Cl 114.1, CO2 21, BUN 115, Crea 3.6, Glu 294 , HbA1c 7.6. Pertinent Medications 12/19: Vit C, Vit D3, Humulin 70/30 15U, Humalog 4U, ZnSO4, others nutritionally unremarkable. Height 5 ft 7 in Weight 81.6 kg [place] Body Weight (kg) 67.27 BMI 28.1 Weight change and time frame 6.6 Kg body weight loss in 2 days reported. Weight Status Overweight Subjective/Other Information RD consult for routine F/U on TF tolerance/continuation. TF continues as prescribed, well tolerated, according to RN notes. Pt is on Room Air, O2 saturation @ 97%, according to Physical Assessment History notes. Percent of energy/protein needs met: Prescribed TF-Nepro w/ CARBSTEADY @ 35 ml/hr provides for energy/protein needs (1, 530 Kcal/69 g) during LOS, 86% Kcal; 100% AA. Burn Absent Trauma Absent GI Symptoms None Food Allergy No Skin Integrity/Comment Unspecified Dryness area of concern Current % PO Other Minimum of two criteria No #1 Nutrition Diagnosis Inadequate oral intake Diagnosis Progress(for reassessment Continues documentation) Is patient on ventilator? No Is Patient Ambulatory and/or Out of Bed No REE-([facility]-confined to bed) 1876.812 Kcal/Kg value to use for calculation 22 Approximate Energy Requirements Using 1795 kcal/Kg Calculation Used for Recommendations Kcal/kg Additional Notes Protein: 0.6-0.8 g/Kg ABW; 46- 62 g/day. Fluids: 1 ml/Kcal, or as per MD. Nutrition Intervention Nutrition Support: Continue TF-Nepro w/CARBSTEADY @ 35 ml/hr. Flush: 200 ml water Q 4 hr, or as per MD. Kcal 1,530 Protein (gm) 69 Carbohydrates (gm) 137 Fat (gm) 82 Fluid (mL) 618 Fiber (gm) 11 % RDI: 86% Kcal; 100% AA. Goal #1 Provide at least 75% of energy /protein needs through Enteral Feeding during LOS. Goal #2 Maintain body weight within +/ -3% of admission body weight during LOS. Follow-Up By: 12/26/21 Additional Comments Continue monitoring TF tolerance and BM.
[2021-12-26] MEDS: INSULIN LISPRO 100 UNIT/ML SUB-Q SCH ×4 (00:19→18:46)
[2021-12-26 05:42] LABS: Blood Urea Nitrogen 24 mg/dL (9-20); Hemolysis Index 42
[2021-12-26 05:45] LABS: BUN/Creatinine Ratio 34
[2021-12-26] MEDS: HEPARIN 5,000 UNIT/1 ML VIAL SUB-Q SCH ×3 (06:26→22:50)
[2021-12-26] MEDS: INSULIN NPH/REGULAR 70/30 INJ SUB-Q SCH ×2 (08:48→17:21)
[2021-12-26] MEDS: SERTRALINE 100 MG TAB PO SCH (10:43)
[2021-12-26] MEDS: FLUCONAZOLE 100 MG TAB PO SCH (10:43)
[2021-12-26] MEDS: carvediloL 3.125 MG TAB PO SCH ×2 (10:43→22:33)
[2021-12-26] MEDS: FAMOTIDINE 20 MG TAB PO SCH (10:43)
[2021-12-26] MEDS: CLOPIDOGREL 75 MG TAB PO SCH (10:43)
[2021-12-26] MEDS: ASPIRIN EC 81 MG TAB PO SCH (10:43)
--- NOTE | 2021-12-26 20:38 | Progress Note ---
Assessment and Plan Assessment and plan: Patient is a 66-year-old male with past medical history of CVA, diabetes was brought to the emergency room because of altered mental status. Patient is was sent from [facility] after he was noted to be unresponsive approximately 2 hours ago. Per nursing the patient is normally talkative. EMS was called and found the patient to be hypoxic to 88% on room air and patient was placed on a nonrebreather. The patient is currently unresponsive with eyes open Case discussed with tele-neurologist Dr. Ha-given last known well time of 09: 00 patient is not a tPA candidate. As patient is bedbound he is not a candidate for thrombectomy. 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 2. Small age-indeterminate right rice radiata white matter lacunar infarctions. No other occlusion or significant stenosis. Chest x-ray shows no acute pathology. Multiple electrolyte imbalance corrected, patient also has urinary tract i nfection received complete dose of antibiotics Blood pressures blood sugars monitored medications optimized Patient had abnormal VQ scan, after renal function improved CTA chest was obtained negative for PE Patient symptoms significantly improved today patient is comfortable, back to baseline Tolerating PEG feeds Physical examination unremarkable Hemodynamically and clinically stable at discharge Case management has set up SNF placement. Assessment and plan: -- UTI with sepsis, started on empiric antibiotics, ordered urine and blood culture -- Hypernatremia, continue half-normal saline, monitor BMP -- Acute metabolic encephalopathy Likely possible acute CVA Admitted the patient to the medical telemetry. Acute metabolic encephalopathy secondary to CVA, urosepsis and MAURI. Aspirin 325 mg p.o. daily. Lipitor 40 mg p.o. daily. S/p CT head with CTA head and neck MRI brain could not be done as patient history could not be completed Ordered echocardiogram/ PT OT speech evaluation. Neurology consulted --Right carotid artery occlusion: CTA showed occlusion of right carotid artery during admission, however intracranially there is no occlusion seen Patient was evaluated by vascular surgery and recommended to continue medical management. -- MAURI (acute kidney injury) with vasomotor nephropathy on CKD stage III - creatinine worsening Avoid nephrotoxic drug. Renally dose medication. Renal function now improving -- Diabetes type 2 Accu-Chek every 6 hours with Humalog low-dose coverage. Diabetic education -- Lactic acidosis, improved with hydration -- Pleural effusion Oxygen via nasal cannula 3 L/min. DuoNeb via nebulizer every 4 hours. Albuterol via nebulizer every 4 hours as needed. We will monitor the patient closely. --Acute hypoxic respiratory failure on admission, likely from pleural effusion --Abnormal VQ scan, holding off heparin drip for now as patient might have acute CVA Need repeat CTA chest when renal function allows to confirm the diagnosis of PE Lower extremity venous Doppler is negative CTA chest no evidence of PE -- DVT prophylaxis Heparin 5000 units subcu every 12 hours for DVT prophylaxis. Pepcid 20 mg IV every 12 hours for GI prophylaxis. Patient is a full code SNF placement today stable History Interval history: I have have seen and examined the patient at the bedside Patient's chart and medications reviewed Patient feels better No new complaints vital signs noted Hospitalist Physical - Constitutional Vitals: Temp Pulse Resp BP Pulse Ox 98.1 F 70 19 101/47 98 12/26/21 06:48 12/26/21 06:48 12/26/21 06:48 12/26/21 17:05 12/26/21 10:00 General appearance: Present: no acute distress, well-nourished, disheveled - EENT Eyes: Present: PERRL, EOM intact - Neck Neck: Present: supple, normal ROM - Respiratory Respiratory effort: normal Respiratory: bilateral: diminished, negative: rales, rhonchi, wheezing - Cardiovascular Rhythm: regular Heart Sounds: Present: S1 & S2 - Extremities Extremities: no ischemia, No edema - Abdominal General gastrointestinal: soft, non-tender, non-distended, normal bowel sounds - Integumentary Integumentary: Present: clear, warm - Psychiatric Psychiatric: appropriate mood/affect, cooperative - Neurologic Neurologic: CNII-XII intact, moves all extremities HEART Score - HEART Score Troponin: Troponin T 0.062 ng/mL (0.00-0.029) H 12/13/21 22:49 Results - Labs CBC & Chem 7: 12/23/21 04:52 12/26/21 04:29 Labs: Laboratory Last Values WBC 10.0 K/mm3 (4.5-11.0) 12/23/21 04:52 RBC 4.14 M/mm3 (3.65-5.03) 12/23/21 04:52 Hgb 10.6 gm/dl (11.8-15.2) L 12/23/21 04:52 Hct 33.9 % (35.5-45.6) L 12/23/21 04:52 MCV 82 fl (84-94) L 12/23/21 04:52 MCH 26 pg (28-32) L 12/23/21 04:52 MCHC 31 % (32-34) L 12/23/21 04:52 RDW 20.3 % (13.2-15.2) H 12/23/21 04:52 Plt Count 77 K/mm3 (140-440) L 12/23/21 04:52 Lymph % (Auto) 6.6 % (13.4-35.0) L 12/13/21 22:49 [place]itus % (Auto) 11.0 % (0.0-7.3) H 12/13/21 22:49 Eos % (Auto) 0.1 % (0.0-4.3) 12/13/21 22:49 Baso % (Auto) 0.3 % (0.0-1.8) 12/13/21 22:49 Lymph # (Auto) 0.9 K/mm3 (1.2-5.4) L 12/13/21 22:49 Titus # (Auto) 1.4 K/mm3 (0.0-0.8) H 12/13/21 22:49 Eos # (Auto) 0.0 K/mm3 (0.0-0.4) 12/13/21 22:49 Baso # (Auto) 0.0 K/mm3 (0.0-0.1) 12/13/21 22:49 Add Manual Diff Complete 12/23/21 04:52 Total Counted 100 12/23/21 04:52 Seg Neutrophils % 82.0 % (40.0-70.0) H 12/13/21 22:49 Seg Neuts % (Manual) 86.0 % (40.0-70.0) H 12/23/21 04:52 Band Neutrophils % 0 % 12/23/21 04:52 Lymphocytes % (Manual) 2.0 % (13.4-35.0) L 12/23/21 04:52 Reactive Lymphs % (Man) 0 % 12/23/21 04:52 Monocytes % (Manual) 6.0 % (0.0-7.3) 12/23/21 04:52 Eosinophils % (Manual) 6.0 % (0.0-4.3) H 12/23/21 04:52 Basophils % (Manual) 0 % (0.0-1.8) 12/23/21 04:52 Metamyelocytes % 0 % 12/23/21 04:52 Myelocytes % 0 % 12/23/21 04:52 Promyelocytes % 0 % 12/23/21 04:52 Blast Cells % 0 % 12/23/21 04:52 Nucleated RBC % Not Reportable 12/23/21 04:52 Seg Neutrophils # 10.6 K/mm3 (1.8-7.7) H 12/13/21 22:49 Seg Neutrophils # Man 8.6 K/mm3 (1.8-7.7) H 12/23/21 04:52 Band Neutrophils # 0.0 K/mm3 12/23/21 04:52 Lymphocytes # (Manual) 0.2 K/mm3 (1.2-5.4) L 12/23/21 04:52 Abs React Lymphs (Man) 0.0 K/mm3 12/23/21 04:52 Monocytes # (Manual) 0.6 K/mm3 (0.0-0.8) 12/23/21 04:52 Eosinophils # (Manual) 0.6 K/mm3 (0.0-0.4) H 12/23/21 04:52 Basophils # (Manual) 0.0 K/mm3 (0.0-0.1) 12/23/21 04:52 Metamyelocytes # 0.0 K/mm3 12/23/21 04:52 Myelocytes # 0.0 K/mm3 12/23/21 04:52 Promyelocytes # 0.0 K/mm3 12/23/21 04:52 Blast Cells # 0.0 K/mm3 12/23/21 04:52 WBC Morphology Not Reportable 12/23/21 04:52 Hypersegmented Neuts Not Reportable 12/23/21 04:52 Hyposegmented Neuts Not Reportable 12/23/21 04:52 Hypogranular Neuts Not Reportable 12/23/21 04:52 Smudge Cells Not Reportable 12/23/21 04:52 Toxic Granulation Not Reportable 12/23/21 04:52 Toxic Vacuolation Not Reportable 12/23/21 04:52 Dohle Bodies Not Reportable 12/23/21 04:52 Pelger-Huet Anomaly Not Reportable 12/23/21 04:52 Sarah Rods Not Reportable 12/23/21 04:52 Platelet Estimate Consistent w auto 12/23/21 04:52 Clumped Platelets Not Reportable 12/23/21 04:52 Plt Clumps, EDTA Not Reportable 12/23/21 04:52 Large Platelets Not Reportable 12/23/21 04:52 Giant Platelets Not Reportable 12/23/21 04:52 Platelet Satelliting Not Reportable 12/23/21 04:52 Plt Morphology Comment Not Reportable 12/23/21 04:52 RBC Morphology Not Reportable 12/23/21 04:52 Dimorphic RBCs Not Reportable 12/23/21 04:52 Polychromasia Not Reportable 12/23/21 04:52 Hypochromasia 1+ 12/23/21 04:52 Poikilocytosis Not Reportable 12/23/21 04:52 Anisocytosis 1+ 12/23/21 04:52 Microcytosis Not Reportable 12/23/21 04:52 Macrocytosis Not Reportable 12/23/21 04:52 Spherocytes Not Reportable 12/23/21 04:52 Pappenheimer Bodies Not Reportable 12/23/21 04:52 Sickle Cells Not Reportable 12/23/21 04:52 Target Cells Not Reportable 12/23/21 04:52 Tear Drop Cells Not Reportable 12/23/21 04:52 Ovalocytes Not Reportable 12/23/21 04:52 Helmet Cells Not Reportable 12/23/21 04:52 [place] Bodies Not Reportable 12/23/21 04:52 [place] Rings Not Reportable 12/23/21 04:52 [place] Cells Not Reportable 12/23/21 04:52 Bite Cells Not Reportable 12/23/21 04:52 Crenated Cell Not Reportable 12/23/21 04:52 Elliptocytes Not Reportable 12/23/21 04:52 Acanthocytes (Spur) Not Reportable 12/23/21 04:52 Rouleaux Not Reportable 12/23/21 04:52 Hemoglobin C Crystals Not Reportable 12/23/21 04:52 Schistocytes Not Reportable 12/23/21 04:52 Malaria parasites Not Reportable 12/23/21 04:52 Jigar Bodies Not Reportable 12/23/21 04:52 Hem Pathologist Commnt No 12/23/21 04:52 PT 14.8 Sec. (12.2-14.9) 12/15/21 19:05 INR 1.04 (0.87-1.13) 12/15/21 19:05 APTT 105.5 Sec. (24.2-36.6) H* 12/15/21 19:05 Thrombin Time 18.7 Sec. (15.1-19.6) 12/13/21 22:49 D-Dimer 1278.36 ng/mlDDU (0-234) H 12/14/21 07:14 Heparin Anti-Xa Level 0.82 U.I./ml (0.3-0.7) H 12/16/21 03:54 VBG pH 7.393 (7.320-7.420) 12/13/21 22:49 Sodium 140 mmol/L (137-145) 12/26/21 04:29 Potassium 3.8 mmol/L (3.6-5.0) 12/26/21 04:29 Chloride 106.8 mmol/L (98-107) 12/26/21 04:29 Carbon Dioxide 22 mmol/L (22-30) 12/26/21 04:29 Anion Gap 15 mmol/L 12/26/21 04:29 BUN 24 mg/dL (9-20) H 12/26/21 04:29 Creatinine 0.7 mg/dL (0.8-1.3) L 12/26/21 04:29 Estimated GFR > 60 ml/min 12/26/21 04:29 BUN/Creatinine Ratio 34 % 12/26/21 04:29 Glucose 145 mg/dL (75-100) H 12/26/21 04:29 POC Glucose 147 mg/dL (70-105) H 12/26/21 17:20 Hemoglobin A1c 7.6 % (4-6) H 12/16/21 17:35 Lactic Acid 1.70 mmol/L (0.7-2.0) 12/14/21 19:48 Calcium 8.0 mg/dL (8.4-10.2) L 12/26/21 04:29 Magnesium 2.30 mg/dL (1.7-2.3) 12/13/21 22:49 Ferritin 412.0 ng/mL (30.0-300.0) H 12/14/21 10:07 Total Bilirubin 0.30 mg/dL (0.1-1.2) 12/14/21 10:07 AST 21 units/L (5-40) 12/14/21 10:07 ALT 13 units/L (7-56) 12/14/21 10:07 Alkaline Phosphatase 176 units/L (35-129) H 12/14/21 10:07 Ammonia 10.0 umol/L (25-60) L 12/13/21 22:49 Lactate Dehydrogenase 205 units/L (91-180) H 12/14/21 10:07 Total Creatine Kinase 17 units/L (55-170) L 12/13/21 22:49 CK-MB (CK-2) 1.3 ng/mL (0.0-4.0) 12/13/21 22:49 CK-MB (CK-2) Rel Index 7.6 (0-4) H 12/13/21 22:49 Troponin T 0.062 ng/mL (0.00-0.029) H 12/13/21 22:49 C-Reactive Protein 3.90 mg/dL (0.00-1.30) H 12/14/21 10:07 Total Protein 7.4 g/dL (6.3-8.2) 12/14/21 10:07 Albumin 3.5 g/dL (3.9-5) L 12/14/21 10:07 Albumin/Globulin Ratio 0.9 % 12/14/21 10:07 Triglycerides 250 mg/dL (2-149) H 12/13/21 22:49 Cholesterol 185 mg/dL (50-199) 12/13/21 22:49 LDL Cholesterol Direct 87 mg/dL (50-130) 12/13/21 22:49 HDL Cholesterol 27 mg/dL (40-59) L 12/13/21 22:49 Cholesterol/HDL Ratio 6.85 % 12/13/21 22:49 Procalcitonin 0.16 ng/mL (<0.15) 12/14/21 10:07 TSH 0.616 mlU/mL (0.270-4.200) 12/13/21 22:49 Free T4 1.45 ng/dL (0.76-1.46) 12/13/21 22:49 Urine Color Straw (Yellow) 12/18/21 23:00 Urine Turbidity Slightly cloudy (Clear) 12/18/21 23:00 Urine pH 6.0 (5.0-7.0) 12/18/21 23:00 Ur Specific [place] 1.010 (1.003-1.030) 12/18/21 23:00 Urine Protein 30 mg/dl mg/dL (Negative) 12/18/21 23:00 Urine Glucose (UA) Trace mg/dL (Negative) 12/18/21 23:00 Urine Ketones Neg mg/dL (Negative) 12/18/21 23:00 Urine Blood Large (Negative) A 12/18/21 23:00 Urine Nitrite Neg (Negative) 12/18/21 23:00 Ur Reducing Substances Not Reportable 12/18/21 23:00 Urine Bilirubin Neg (Negative) 12/18/21 23:00 Urine Ictotest Not Reportable 12/18/21 23:00 Urine Urobilinogen < 2.0 mg/dL (<2.0) 12/18/21 23:00 Ur Leukocyte Esterase Moderate (Negative) 12/18/21 23:00 Urine WBC (Auto) 18.0 /HPF (0.0-6.0) H 12/18/21 23:00 Urine RBC (Auto) 121.0 /HPF (0.0-6.0) 12/18/21 23:00 U Epithel Cells (Auto) < 1.0 /HPF (0-13.0) 12/18/21 23:00 Urine Bacteria (Auto) 1+ /HPF (Negative) 12/18/21 23:00 Urine Mucus Few /HPF 12/18/21 23:00 Urine Yeast (Budding) 3+ /HPF 12/18/21 23:00 Plasma/Serum Alcohol < 0.01 % (0-0.07) 12/13/21 22:49 Coronavirus (PCR) Negative (Negative) 12/14/21 10:50 [place]/IV: Voiding Method Indwelling Catheter Active Medications - Current Medications Current Medications: Generic Name Dose Route Start Last Admin Trade Name Freq PRN Reason Stop Dose Admin Acetaminophen 650 mg 12/14/21 00:30 12/24/21 16:51 Acetaminophen 325 Mg Tab PO 650 mg Q4H PRN Administration Pain MILD(1-3)/Fever >100.5/ROGERS Albuterol 2.5 mg 12/14/21 00:30 Albuterol 2.5 Mg/3 Ml Nebu IH Q3HRT PRN Shortness Of Breath Lipase/Protease/Amylase 1 each 12/17/21 11:46 Lipase 10,500/Protease 25,000/Amylase 43,750 (Units) Dr Mariee FEEDTUBE PRN PRN For Clogged Feeding Tube Aspirin 81 mg 12/14/21 10:00 12/26/21 10:43 Aspirin Ec 81 Mg Tab PO 81 mg QDAY ALEXSANDRA Administration Atorvastatin Calcium 80 mg 12/14/21 22:00 12/25/21 22:42 Atorvastatin 40 Mg Tab PO 80 mg QHS ALEXSANDRA Administration Carvedilol 3.125 mg 12/14/21 10:00 12/26/21 10:43 Carvedilol 3.125 Mg Tab PO 3.125 mg BID ALEXSANDRA Administration Clopidogrel Bisulfate 75 mg 12/17/21 10:00 12/26/21 10:43 Clopidogrel 75 Mg Tab PO 75 mg QDAY ALEXSANDRA Administration Dextrose 50 ml 12/14/21 00:30 Dextrose 50% In Water (25gm) 50 Ml Syringe IV Q30MIN PRN Hypoglycemia Protocol Famotidine 20 mg 12/17/21 10:00 12/26/21 10:43 Famotidine 20 Mg Tab PO 20 mg DAILY ALEXSANDRA Administration Fluconazole 100 mg 12/22/21 11:00 12/26/21 10:43 Fluconazole 100 Mg Tab PO 12/28/21 10:01 100 mg QDAY ALEXSANDRA Administration Protocol Heparin Sodium (Porcine) 5,000 unit 12/16/21 14:00 12/26/21 14:38 Heparin 5,000 Unit/1 Ml Vial SUB-Q 5,000 unit Q8HR ALEXSANDRA Administration Potassium Chloride 20 meq/ 1,010 mls @ 60 mls/hr 12/22/21 10:00 12/23/21 22:39 Dextrose IV 60 mls/hr DIRECT ALEXSANDRA Administration Insulin Human Isoph/Insulin Regular 25 unit 12/20/21 17:00 12/26/21 17:21 Insulin Nph/Regular 70/30 Inj SUB-Q 25 unit BIDDIAB ALEXSANDRA Administration Insulin Human Lispro 0 unit 12/14/21 06:00 12/26/21 18:46 Insulin Lispro 100 Unit/Ml SUB-Q Not Given Q6HR [facility] Protocol Labetalol HCl 10 mg 12/14/21 00:30 Labetalol 20 Mg/4 Ml Inj IV Q5MIN PRN to maintain SBP < 180 Morphine Sulfate 2 mg 12/14/21 00:30 12/23/21 10:11 Morphine 2 Mg/1 Ml Inj IV 2 mg Q4H PRN Administration Pain, Moderate (4-6) Morphine Sulfate 4 mg 12/14/21 00:30 12/25/21 22:55 Morphine 4 Mg/1 Ml Inj IV 4 mg Q4H PRN Administration Pain , Severe (7-10) Ondansetron HCl 4 mg 12/14/21 00:30 Ondansetron 4 Mg/2 Ml Inj IV Q8H PRN Nausea And Vomiting Sertraline HCl 100 mg 12/14/21 10:00 12/26/21 10:43 Sertraline 100 Mg Tab PO 100 mg QDAY ALEXSANDRA Administration Simple Syrup 15 ml 12/17/21 11:46 Simple Syrup 15 Ml FEEDTUBE PRN PRN Hypoglycemia Simple Syrup 30 ml 12/17/21 11:46 Simple Syrup 15 Ml FEEDTUBE PRN PRN Hypoglycemia Sodium Bicarbonate 325 mg 12/17/21 11:46 Sodium Bicarbonate 325 Mg Tab FEEDTUBE PRN PRN For Clogged Feeding Tube Sodium Chloride 10 ml 12/14/21 10:00 12/26/21 10:43 Sodium Chloride 0.9% 10 Ml Flush Syringe IV 10 ml BID ALEXSANDRA Administration Sodium Chloride 10 ml 12/14/21 00:30 Sodium Chloride 0.9% 10 Ml Flush Syringe IV PRN PRN LINE FLUSH Nutrition/Malnutrition Assess - Dietary Evaluation Nutrition/Malnutrition Findings: Nutrition Notes Start: 12/14/21 14:50 Freq: Status: Active Protocol: Document 12/26/21 14:19 JARON (Rec: 12/26/21 14:36 JARON [id number]) Nutrition Notes Initial or Follow up Reassessment Current Diagnosis CKD(stage I-IV),Diabetes, Hypertension,Stroke Other Pertinent Diagnosis Metabolic Encephalopathy, SIRS , R-ICA Occlusion... Current Diet TF-Nepro w/CARBSTEADY @ 35 ml/ hr (since L 12/17). Labs/Tests 12/26: BUN 24, Crea 0.7, Glu 145, Ca 8.0. Pertinent Medications 12/26: Humulin 70/30 25U, KCl 20mEq. others nutritionally unremarkable. Height 5 ft 7 in Weight 82 kg [place] Body Weight (kg) 67.27 BMI 28.3 Weight change and time frame 0.4 Kg body weight gain in 1 week reported. Weight Status Overweight Subjective/Other Information RD consult for routine F/U on TF tolerance/continuation. TF continues as prescribed, well tolerated, according to RN notes. RN note on 12/25/21 19:27: Pt dozing at times, oriented x 2 when awake, tolerating TF and water flushes. IVF dc'd. - END OF NOTE Pt is on Room Air, O2 saturation @ 98%, according to Physical Assessment History notes. Percent of energy/protein needs met: Prescribed TF-Nepro w/ CARBSTEADY @ 35 ml/hr provides for energy/protein needs (1, 530 Kcal/69 g) during LOS, 86% Kcal; 100% AA. Burn Absent Trauma Absent GI Symptoms None Food Allergy No Skin Integrity/Comment Unspecified Dryness area of concern Current % PO Other Minimum of two criteria No #1 Nutrition Diagnosis Inadequate oral intake Diagnosis Progress(for reassessment Continues documentation) Is patient on ventilator? No Is Patient Ambulatory and/or Out of Bed No REE-([facility]-confined to bed) 1881.612 Kcal/Kg value to use for calculation 22 Approximate Energy Requirements Using 1804 kcal/Kg Calculation Used for Recommendations Kcal/kg Additional Notes Protein: 0.6-0.8 g/Kg ABW; 46- 62 g/day. Fluids: 1 ml/Kcal, or as per MD. Nutrition Intervention Nutrition Support: Continue TF-Nepro w/CARBSTEADY @ 35 ml/hr. Flush: 200 ml water Q 4 hr, or as per MD. Kcal 1,530 Protein (gm) 69 Carbohydrates (gm) 137 Fat (gm) 82 Fluid (mL) 618 Fiber (gm) 11 % RDI: 86% Kcal; 100% AA. Goal #1 Provide at least 75% of energy /protein needs through Enteral Feeding during LOS. Follow-Up By: 01/02/22 Additional Comments Continue monitoring TF tolerance and BM.
[2021-12-27] MEDS: INSULIN LISPRO 100 UNIT/ML SUB-Q SCH ×4 (00:05→17:18)
[2021-12-27] MEDS: MORPHINE 2 MG/1 ML INJ IV PRN (02:27)
[2021-12-27] MEDS: HEPARIN 5,000 UNIT/1 ML VIAL SUB-Q SCH ×2 (05:29→14:17)
[2021-12-27] MEDS: INSULIN NPH/REGULAR 70/30 INJ SUB-Q SCH ×3 (09:24→18:18)
[2021-12-27] MEDS: carvediloL 3.125 MG TAB PO SCH (09:35)
[2021-12-27] MEDS: FAMOTIDINE 20 MG TAB PO SCH (09:35)
[2021-12-27] MEDS: FLUCONAZOLE 100 MG TAB PO SCH (09:35)
[2021-12-27] MEDS: CLOPIDOGREL 75 MG TAB PO SCH (09:35)
[2021-12-27] MEDS: ASPIRIN EC 81 MG TAB PO SCH (09:35)
[2021-12-27] MEDS: SERTRALINE 100 MG TAB PO SCH (09:35)
[2021-12-27] MEDS: ACETAMINOPHEN 325 MG TAB PO PRN (09:36)
[2021-12-27 17:31] VITALS: BP 142/61
== END 2021-12-27 18:23 | DRG 871 ==
LOC: ED 20:43 → 4A 12-14 03:30
PROVIDERS: ADMIT Hospitalist; ATTEND Internal Medicine
DX: A41.9 Sepsis, unspecified organism (principal); G93.41 Metabolic encephalopathy; N17.0 Acute kidney failure with tubular necrosis; J96.01 Acute respiratory failure with hypoxia; I63.9 Cerebral infarction, unspecified; J90 Pleural effusion, not elsewhere classified; G40.89 Other seizures; E87.0 Hyperosmolality and hypernatremia; E44.1 Mild protein-calorie malnutrition; N39.0 Urinary tract infection, site not specified; N18.30 Chronic kidney disease, stage 3 unspecified; Z20.822 Contact with and (suspected) exposure to COVID-19; E11.22 Type 2 diabetes mellitus with diabetic chronic kidney disease; Z74.01 Bed confinement status; I65.21 Occlusion and stenosis of right carotid artery; E86.0 Dehydration; E87.6 Hypokalemia; Z68.28 Body mass index [BMI] 28.0-28.9, adult; Z79.82 Long term (current) use of aspirin; Z79.4 Long term (current) use of insulin; Z82.49 Family history of ischemic heart disease and other diseases of the circulatory system
CPT/HCPCS: 36415; 70450; 70496; 70498; 71045; 71275; 76770; 78580; 80048; 80053; 80061; 80320; 81001; 82140; 82550; 82553; 82728; 82805; 82947; 82962; 83036; 83615; 83735; 84145; 84439; 84443; 84484; 85007; 85014; 85018; 85025; 85027; 85049; 85379; 85520; 85610; 85670; 85730; 86140; 87040; 87086; 93005; 93306; 93970; 94640; 94760; G0378; J3490; Q0177; Q9967; A9540; C8929; G0480; J0696; J1644; J1815; J1953; J2270; J2920; J3480; J7030; J7042; J7070; U0003

== ENCOUNTER 2022-01-11 02:08 | Inpatient (IN) | payer MEDICARE ==
[2022-01-11] MEDS ORDERED: SODIUM CHLORIDE 0.9% 1000 ML 1,000 ML IV ONE ×2 (02:40→02:41)
[2022-01-11 03:32] LABS: Hematocrit 44.8 % (35.5-45.6); Hemoglobin 14.1 gm/dl (11.8-15.2); Mean Corpuscular HGB Conc 32 % (32-34); Mean Corpuscular Volume 85 fl (84-94); Red Blood Count 5.28 M/mm3 (3.65-5.03)
[2022-01-11 03:35] LABS: Platelet Count 96 K/mm3 (140-440); Red Cell Distribution Width 25.5 % (13.2-15.2)
[2022-01-11 03:37] LABS: Albumin 2.3 g/dL (3.9-5); Bilirubin,Direct 0.3 mg/dL (0-0.2); Calcium 9.9 mg/dL (8.4-10.2)
--- NOTE | 2022-01-11 04:01 | Emergency Department Report ---
ED Altered Mental Status HPI - General Chief Complaint: Altered Mental Status Stated Complaint: UNRESPONSIVE Time Seen by Provider: 01/11/22 02:39 Source: EMS Mode of arrival: Stretcher Limitations: Altered Mental Status - History of Present Illness Initial Comments: Patient is a 66-year-old male brought in [facility] by EMS for altered mental status. His baseline is reportedly AAO x3 with ability to perform ADLs. EMS reports hypotension of 70/40 and started IV fluid resuscitation in route. On arrival patient opens eyes to my voice and attempts to speak his name. - Related Data Home Medications Medication Instructions Recorded Confirmed Last Taken Aspirin [[place] Aspirin EC] 81 mg PO QDAY 12/14/21 01/14/22 Unknown Atorvastatin [Lipitor] 80 mg PO QHS 12/14/21 01/14/22 Unknown Dapagliflozin Propanediol [Farxiga] 10 mg PO QDAY 12/14/21 01/14/22 Unknown Insulin Detemir [Levemir VIAL] 25 unit SQ QHS 12/14/21 01/14/22 Unknown Insulin Lispro [Admelog] 100 unit SQ ACHS 12/14/21 01/14/22 Unknown Tamsulosin [Flomax] 0.4 mg PO QDAY 12/14/21 01/14/22 Unknown carvediloL [Coreg] 3.125 mg PO BID 12/14/21 01/14/22 Unknown Previous Rx's Medication Instructions Recorded Last Taken Type cephALEXin [Keflex] 500 mg PO Q6HR 7 Days #28 capsule 12/09/21 Unknown Rx Clopidogrel [Plavix] 75 mg PO QDAY tablet 12/27/21 Unknown Rx Sertraline [Zoloft] 100 mg PO QDAY #30 12/27/21 Unknown Rx Simple Syrup 15 ml FEEDTUBE PRN PRN oral.liqd 12/27/21 Unknown Rx Simple Syrup 30 ml FEEDTUBE PRN PRN oral.liqd 12/27/21 Unknown Rx Sodium Bicarbonate 325 mg FEEDTUBE PRN PRN #30 tablet 12/27/21 Unknown Rx Torsemide [Demadex] 20 mg PO QDAY #30 12/27/21 Unknown Rx Allergies Allergy/AdvReac Type Severity Reaction Status Date / Time heparin Allergy Unknown Verified 01/19/22 10:43 ED Review of Systems ROS: Stated complaint: UNRESPONSIVE Other details as noted in HPI Comment: Unobtainable due to pts medical conditions ED Past Medical Hx - Past Medical History Previous Medical History?: Yes Hx Hypertension: Yes Hx CVA: Yes (pt is chronically bed-bound) Hx Congestive Heart Failure: Yes Hx Diabetes: Yes Additional medical history: PEG, Indwelling Cath - Surgical History Past Surgical History?: Yes Additional Surgical History: gastro tube - Social History Smoking Status: Unknown if ever smoked - Medications Home Medications: Home Medications Medication Instructions Recorded Confirmed Last Taken Type cephALEXin [Keflex] 500 mg PO Q6HR 7 Days #28 capsule 12/09/21 01/14/22 Unknown Rx Aspirin [[place] Aspirin EC] 81 mg PO QDAY 12/14/21 01/14/22 Unknown History Atorvastatin [Lipitor] 80 mg PO QHS 12/14/21 01/14/22 Unknown History Dapagliflozin Propanediol [Farxiga] 10 mg PO QDAY 12/14/21 01/14/22 Unknown History Insulin Detemir [Levemir VIAL] 25 unit SQ QHS 12/14/21 01/14/22 Unknown History Insulin Lispro [Admelog] 100 unit SQ ACHS 12/14/21 01/14/22 Unknown History Tamsulosin [Flomax] 0.4 mg PO QDAY 12/14/21 01/14/22 Unknown History carvediloL [Coreg] 3.125 mg PO BID 12/14/21 01/14/22 Unknown History Clopidogrel [Plavix] 75 mg PO QDAY tablet 12/27/21 01/14/22 Unknown Rx Sertraline [Zoloft] 100 mg PO QDAY #30 12/27/21 01/14/22 Unknown Rx Simple Syrup 15 ml FEEDTUBE PRN PRN oral.liqd 12/27/21 01/14/22 Unknown Rx Simple Syrup 30 ml FEEDTUBE PRN PRN oral.liqd 12/27/21 01/14/22 Unknown Rx Sodium Bicarbonate 325 mg FEEDTUBE PRN PRN #30 tablet 12/27/21 01/14/22 Unknown Rx Torsemide [Demadex] 20 mg PO QDAY #30 12/27/21 01/14/22 Unknown Rx ED Physical Exam - General Limitations: Altered Mental Status General appearance: lethargic, obtunded - Head Head exam: Present: atraumatic, normocephalic - Eye Eye exam: Present: PERRL, EOMI - Respiratory Respiratory exam: Present: normal lung sounds bilaterally. Absent: respiratory distress - Cardiovascular Cardiovascular Exam: Present: regular rate, normal rhythm, normal heart sounds - GI/Abdominal GI/Abdominal exam: Present: soft. Absent: distended - Rectal Rectal exam: Present: deferred - exam: Present: other ([place] catheter in place with cloudy urine in tube) - Neurological Exam Neurological exam: Present: altered ED Course Vital Signs 01/11/22 01/11/22 01/11/22 02:09 02:28 02:30 Temperature 97 F L Pulse Rate 104 H 104 H 103 H Pulse Rate [ Bilateral Throughout] Pulse Rate [ From Monitor] Respiratory 20 40 H 37 H Rate Respiratory Rate [Bilateral Throughout] Blood Pressure 86/57 O2 Sat by Pulse 99 99 Oximetry 01/11/22 01/11/22 01/11/22 02:45 03:00 03:15 Temperature Pulse Rate 101 H 102 H 101 H Pulse Rate [ Bilateral Throughout] Pulse Rate [ From Monitor] Respiratory 35 H 25 H 14 Rate Respiratory Rate [Bilateral Throughout] Blood Pressure 90/63 90/59 81/46 O2 Sat by Pulse 100 100 98 Oximetry 01/11/22 01/11/22 01/11/22 03:30 03:46 04:00 Temperature Pulse Rate 101 H 98 H 98 H Pulse Rate [ Bilateral Throughout] Pulse Rate [ From Monitor] Respiratory 28 H 33 H 18 Rate Respiratory Rate [Bilateral Throughout] Blood Pressure 78/57 83/52 88/61 O2 Sat by Pulse 100 99 100 Oximetry 01/11/22 01/11/22 01/11/22 04:15 04:30 04:45 Temperature Pulse Rate 97 H 94 H 92 H Pulse Rate [ Bilateral Throughout] Pulse Rate [ From Monitor] Respiratory 29 H 30 H 20 Rate Respiratory Rate [Bilateral Throughout] Blood Pressure 99/66 106/63 110/66 O2 Sat by Pulse 100 100 100 Oximetry 01/11/22 01/11/22 01/11/22 05:00 05:16 05:30 Temperature Pulse Rate 96 H 94 H 91 H Pulse Rate [ Bilateral Throughout] Pulse Rate [ From Monitor] Respiratory 17 23 21 Rate Respiratory Rate [Bilateral Throughout] Blood Pressure 104/64 101/59 101/62 O2 Sat by Pulse 99 99 100 Oximetry 01/11/22 01/11/22 01/11/22 05:46 06:00 06:16 Temperature Pulse Rate 105 H 105 H 101 H Pulse Rate [ Bilateral Throughout] Pulse Rate [ From Monitor] Respiratory 14 14 25 H Rate Respiratory Rate [Bilateral Throughout] Blood Pressure 102/57 97/60 102/65 O2 Sat by Pulse 99 99 100 Oximetry 01/11/22 01/11/22 01/11/22 06:30 06:46 07:00 Temperature Pulse Rate 101 H 100 H 100 H Pulse Rate [ Bilateral Throughout] Pulse Rate [ From Monitor] Respiratory 28 H 20 22 Rate Respiratory Rate [Bilateral Throughout] Blood Pressure 102/67 95/59 89/53 O2 Sat by Pulse 100 100 Oximetry 01/11/22 01/11/22 01/11/22 07:16 07:24 07:30 Temperature Pulse Rate 101 H 101 H Pulse Rate [ Bilateral Throughout] Pulse Rate [ From Monitor] Respiratory 25 H 19 Rate Respiratory Rate [Bilateral Throughout] Blood Pressure 90/55 86/58 O2 Sat by Pulse 99 100 100 Oximetry 01/11/22 01/11/22 01/11/22 07:46 08:00 08:30 Temperature Pulse Rate 102 H 100 H 106 H Pulse Rate [ Bilateral Throughout] Pulse Rate [ From Monitor] Respiratory 24 19 20 Rate Respiratory Rate [Bilateral Throughout] Blood Pressure 94/54 96/57 88/44 O2 Sat by Pulse 100 100 100 Oximetry 01/11/22 01/11/22 01/11/22 08:41 08:46 09:00 Temperature Pulse Rate 106 H 106 H Pulse Rate [ 103 H Bilateral Throughout] Pulse Rate [ From Monitor] Respiratory 15 11 L Rate Respiratory 18 Rate [Bilateral Throughout] Blood Pressure 87/58 86/59 O2 Sat by Pulse 98 100 100 Oximetry 01/11/22 01/11/22 01/11/22 09:16 09:30 09:46 Temperature Pulse Rate 107 H 108 H 99 H Pulse Rate [ Bilateral Throughout] Pulse Rate [ From Monitor] Respiratory 13 23 27 H Rate Respiratory Rate [Bilateral Throughout] Blood Pressure 85/53 88/53 88/55 O2 Sat by Pulse 100 100 98 Oximetry 01/11/22 01/11/22 01/11/22 10:00 10:16 10:30 Temperature Pulse Rate 99 H 101 H 103 H Pulse Rate [ Bilateral Throughout] Pulse Rate [ From Monitor] Respiratory 22 26 H 14 Rate Respiratory Rate [Bilateral Throughout] Blood Pressure 91/61 103/59 91/61 O2 Sat by Pulse 97 99 97 Oximetry 01/11/22 01/11/22 01/11/22 10:45 11:00 11:16 Temperature Pulse Rate 103 H 106 H 104 H Pulse Rate [ Bilateral Throughout] Pulse Rate [ From Monitor] Respiratory 15 21 15 Rate Respiratory Rate [Bilateral Throughout] Blood Pressure 98/62 100/60 108/61 O2 Sat by Pulse 97 96 99 Oximetry 01/11/22 01/11/22 01/11/22 11:30 11:45 12:00 Temperature Pulse Rate 109 H 109 H 112 H Pulse Rate [ Bilateral Throughout] Pulse Rate [ From Monitor] Respiratory 13 28 H 20 Rate Respiratory Rate [Bilateral Throughout] Blood Pressure 101/65 97/59 97/59 O2 Sat by Pulse 94 95 97 Oximetry 01/11/22 01/11/22 01/11/22 12:16 12:30 12:46 Temperature Pulse Rate 110 H 109 H 109 H Pulse Rate [ Bilateral Throughout] Pulse Rate [ From Monitor] Respiratory 18 30 H 35 H Rate Respiratory Rate [Bilateral Throughout] Blood Pressure 97/59 104/68 104/68 O2 Sat by Pulse 96 96 96 Oximetry 01/11/22 01/11/22 01/11/22 13:00 13:16 13:30 Temperature Pulse Rate 110 H 111 H 108 H Pulse Rate [ Bilateral Throughout] Pulse Rate [ From Monitor] Respiratory 30 H 17 18 Rate Respiratory Rate [Bilateral Throughout] Blood Pressure 98/59 98/59 102/55 O2 Sat by Pulse 97 96 96 Oximetry 01/11/22 01/11/22 01/11/22 13:46 14:00 14:16 Temperature Pulse Rate 110 H 111 H 110 H Pulse Rate [ Bilateral Throughout] Pulse Rate [ From Monitor] Respiratory 27 H 19 14 Rate Respiratory Rate [Bilateral Throughout] Blood Pressure 102/55 88/56 88/56 O2 Sat by Pulse 96 96 97 Oximetry 01/11/22 01/11/22 01/11/22 14:25 14:30 14:46 Temperature Pulse Rate 111 H 111 H Pulse Rate [ Bilateral Throughout] Pulse Rate [ 112 H From Monitor] Respiratory 20 24 17 Rate Respiratory Rate [Bilateral Throughout] Blood Pressure 99/67 99/67 O2 Sat by Pulse 100 94 98 Oximetry - Lab Data Result diagrams: 01/20/22 04:39 01/20/22 04:39 Lab Results 01/11/22 01/11/22 01/11/22 Range/Units 00:39 03:08 03:11 WBC 14.3 H (4.5-11.0) K/mm3 RBC 5.28 H (3.65-5.03) M/mm3 Hgb 14.1 (11.8-15.2) gm/dl Hct 44.8 (35.5-45.6) % MCV 85 (84-94) fl MCH 27 L (28-32) pg MCHC 32 (32-34) % RDW 25.5 H (13.2-15.2) % Plt Count 96 L (140-440) K/mm3 Add Manual Diff Complete Total Counted 100 Seg Neuts % (Manual) 91.0 H (40.0-70.0) % Band Neutrophils % 0 % Lymphocytes % (Manual) 5.0 L (13.4-35.0) % Reactive Lymphs % (Man) 0 % Monocytes % (Manual) 4.0 (0.0-7.3) % Eosinophils % (Manual) 0 (0.0-4.3) % Basophils % (Manual) 0 (0.0-1.8) % Metamyelocytes % 0 % Myelocytes % 0 % Promyelocytes % 0 % Blast Cells % 0 % Nucleated RBC % Not Reportable Seg Neutrophils # Man 13.0 H (1.8-7.7) K/mm3 Band Neutrophils # 0.0 K/mm3 Lymphocytes # (Manual) 0.7 L (1.2-5.4) K/mm3 Abs React Lymphs (Man) 0.0 K/mm3 Monocytes # (Manual) 0.6 (0.0-0.8) K/mm3 Eosinophils # (Manual) 0.0 (0.0-0.4) K/mm3 Basophils # (Manual) 0.0 (0.0-0.1) K/mm3 Metamyelocytes # 0.0 K/mm3 Myelocytes # 0.0 K/mm3 Promyelocytes # 0.0 K/mm3 Blast Cells # 0.0 K/mm3 WBC Morphology Not Reportable Hypersegmented Neuts Not Reportable Hyposegmented Neuts Not Reportable Hypogranular Neuts Not Reportable Smudge Cells Not Reportable Toxic Granulation Not Reportable Toxic Vacuolation Not Reportable Dohle Bodies Not Reportable Pelger-Huet Anomaly Not Reportable Sarah Rods Not Reportable Platelet Estimate Consistent w auto Clumped Platelets Not Reportable Plt Clumps, EDTA Not Reportable Large Platelets Not Reportable Giant Platelets Not Reportable Platelet Satelliting Not Reportable Plt Morphology Comment Not Reportable RBC Morphology Not Reportable Dimorphic RBCs Not Reportable Polychromasia Not Reportable Hypochromasia Not Reportable Poikilocytosis Not Reportable Anisocytosis 1+ Microcytosis Not Reportable Macrocytosis Not Reportable Spherocytes Not Reportable Pappenheimer Bodies Not Reportable Sickle Cells Not Reportable Target Cells Not Reportable Tear Drop Cells Not Reportable Ovalocytes Not Reportable Helmet Cells Not Reportable [place] Bodies Not Reportable [place] Not Reportable Kwabena Cells Not Reportable Bite Cells Not Reportable Crenated Cell Not Reportable Elliptocytes Not Reportable Acanthocytes (Spur) Not Reportable Rouleaux Not Reportable Hemoglobin C Crystals Not Reportable Schistocytes Not Reportable Malaria parasites Not Reportable Jigar Bodies Not Reportable Hem Pathologist Commnt No Sodium 160 H 165 H* (137-145) mmol/L Potassium 5.7 H 4.7 (3.6-5.0) mmol/L Chloride 118.4 H 119.2 H (98-107) mmol/L Carbon Dioxide 17 L 27 D (22-30) mmol/L Anion Gap 30 24 mmol/L BUN 112 H 95 H (9-20) mg/dL Creatinine 5.8 H 5.0 H (0.8-1.3) mg/dL Estimated GFR 10 12 ml/min BUN/Creatinine Ratio 19 19 % Glucose 377 H 150 H (75-100) mg/dL POC Glucose (70-105) mg/dL Lactic Acid (0.7-2.0) mmol/L Calcium 8.6 9.9 D (8.4-10.2) mg/dL Total Bilirubin 0.60 (0.1-1.2) mg/dL Direct Bilirubin 0.3 H (0-0.2) mg/dL Indirect Bilirubin 0.3 mg/dL AST 45 H (5-40) units/L ALT 29 (7-56) units/L Alkaline Phosphatase 180 H (35-129) units/L Total Creatine Kinase (55-170) units/L Total Protein 7.3 (6.3-8.2) g/dL Albumin 2.3 L (3.9-5) g/dL Albumin/Globulin Ratio 0.5 % Urine Color (Yellow) Urine Turbidity (Clear) Urine pH (5.0-7.0) Ur Specific [place] (1.003-1.030) Urine Protein (Negative) mg/dL Urine Glucose (UA) (Negative) mg/dL Urine Ketones (Negative) mg/dL Urine Blood (Negative) Urine Nitrite (Negative) Ur Reducing Substances Urine Bilirubin (Negative) Urine Ictotest Urine Urobilinogen (<2.0) mg/dL Ur Leukocyte Esterase (Negative) Urine WBC (Auto) (0.0-6.0) /HPF Urine RBC (Auto) (0.0-6.0) /HPF Urine Bacteria (Auto) (Negative) /HPF Urine WBC Clumps /HPF 01/11/22 01/11/22 01/11/22 Range/Units 03:11 05:38 06:59 WBC (4.5-11.0) K/mm3 RBC (3.65-5.03) M/mm3 Hgb (11.8-15.2) gm/dl Hct (35.5-45.6) % MCV (84-94) fl MCH (28-32) pg MCHC (32-34) % RDW (13.2-15.2) % Plt Count (140-440) K/mm3 Add Manual Diff Total Counted Seg Neuts % (Manual) (40.0-70.0) % Band Neutrophils % % Lymphocytes % (Manual) (13.4-35.0) % Reactive Lymphs % (Man) % Monocytes % (Manual) (0.0-7.3) % Eosinophils % (Manual) (0.0-4.3) % Basophils % (Manual) (0.0-1.8) % Metamyelocytes % % Myelocytes % % Promyelocytes % % Blast Cells % % Nucleated RBC % Seg Neutrophils # Man (1.8-7.7) K/mm3 Band Neutrophils # K/mm3 Lymphocytes # (Manual) (1.2-5.4) K/mm3 Abs React Lymphs (Man) K/mm3 Monocytes # (Manual) (0.0-0.8) K/mm3 Eosinophils # (Manual) (0.0-0.4) K/mm3 Basophils # (Manual) (0.0-0.1) K/mm3 Metamyelocytes # K/mm3 Myelocytes # K/mm3 Promyelocytes # K/mm3 Blast Cells # K/mm3 WBC Morphology Hypersegmented Neuts Hyposegmented Neuts Hypogranular Neuts Smudge Cells Toxic Granulation Toxic Vacuolation Dohle Bodies Pelger-Huet Anomaly Sarah Rods Platelet Estimate Clumped Platelets Plt Clumps, EDTA Large Platelets Giant Platelets Platelet Satelliting Plt Morphology Comment RBC Morphology Dimorphic RBCs Polychromasia Hypochromasia Poikilocytosis Anisocytosis Microcytosis Macrocytosis Spherocytes Pappenheimer Bodies Sickle Cells Target Cells Tear Drop Cells Ovalocytes Helmet Cells Greer-[place] Bodies Be[place] Rings Kwabena Cells Bite Cells Crenated Cell Elliptocytes Acanthocytes (Spur) Rouleaux Hemoglobin C Crystals Schistocytes Malaria parasites Jigar Bodies Hem Pathologist Commnt Sodium (137-145) mmol/L Potassium (3.6-5.0) mmol/L Chloride (98-107) mmol/L Carbon Dioxide (22-30) mmol/L Anion Gap mmol/L BUN (9-20) mg/dL Creatinine (0.8-1.3) mg/dL Estimated GFR ml/min BUN/Creatinine Ratio % Glucose (75-100) mg/dL POC Glucose (70-105) mg/dL Lactic Acid 3.80 H* 2.50 H* 2.30 H* (0.7-2.0) mmol/L Calcium (8.4-10.2) mg/dL Total Bilirubin (0.1-1.2) mg/dL Direct Bilirubin (0-0.2) mg/dL Indirect Bilirubin mg/dL AST (5-40) units/L ALT (7-56) units/L Alkaline Phosphatase (35-129) units/L Total Creatine Kinase (55-170) units/L Total Protein (6.3-8.2) g/dL Albumin (3.9-5) g/dL Albumin/Globulin Ratio % Urine Color (Yellow) Urine Turbidity (Clear) Urine pH (5.0-7.0) Ur Specific [place] (1.003-1.030) Urine Protein (Negative) mg/dL Urine Glucose (UA) (Negative) mg/dL Urine Ketones (Negative) mg/dL Urine Blood (Negative) Urine Nitrite (Negative) Ur Reducing Substances Urine Bilirubin (Negative) Urine Ictotest Urine Urobilinogen (<2.0) mg/dL Ur Leukocyte Esterase (Negative) Urine WBC (Auto) (0.0-6.0) /HPF Urine RBC (Auto) (0.0-6.0) /HPF Urine Bacteria (Auto) (Negative) /HPF Urine WBC Clumps /HPF 01/11/22 01/11/22 01/11/22 Range/Units 07:11 07:14 11:41 WBC (4.5-11.0) K/mm3 RBC (3.65-5.03) M/mm3 Hgb (11.8-15.2) gm/dl Hct (35.5-45.6) % MCV (84-94) fl MCH (28-32) pg MCHC (32-34) % RDW (13.2-15.2) % Plt Count (140-440) K/mm3 Add Manual Diff Total Counted Seg Neuts % (Manual) (40.0-70.0) % Band Neutrophils % % Lymphocytes % (Manual) (13.4-35.0) % Reactive Lymphs % (Man) % Monocytes % (Manual) (0.0-7.3) % Eosinophils % (Manual) (0.0-4.3) % Basophils % (Manual) (0.0-1.8) % Metamyelocytes % % Myelocytes % % Promyelocytes % % Blast Cells % % Nucleated RBC % Seg Neutrophils # Man (1.8-7.7) K/mm3 Band Neutrophils # K/mm3 Lymphocytes # (Manual) (1.2-5.4) K/mm3 Abs React Lymphs (Man) K/mm3 Monocytes # (Manual) (0.0-0.8) K/mm3 Eosinophils # (Manual) (0.0-0.4) K/mm3 Basophils # (Manual) (0.0-0.1) K/mm3 Metamyelocytes # K/mm3 Myelocytes # K/mm3 Promyelocytes # K/mm3 Blast Cells # K/mm3 WBC Morphology Hypersegmented Neuts Hyposegmented Neuts Hypogranular Neuts Smudge Cells Toxic Granulation Toxic Vacuolation Dohle Bodies Pelger-Huet Anomaly Sarah Rods Platelet Estimate Clumped Platelets Plt Clumps, EDTA Large Platelets Giant Platelets Platelet Satelliting Plt Morphology Comment RBC Morphology Dimorphic RBCs Polychromasia Hypochromasia Poikilocytosis Anisocytosis Microcytosis Macrocytosis Spherocytes Pappenheimer Bodies Sickle Cells Target Cells Tear Drop Cells Ovalocytes Helmet Cells Greer-[place] Bodies [place] Rings [place] Cells Bite Cells Crenated Cell Elliptocytes Acanthocytes (Spur) Rouleaux Hemoglobin C Crystals Schistocytes Malaria parasites Jigar Bodies Hem Pathologist Commnt Sodium (137-145) mmol/L Potassium (3.6-5.0) mmol/L Chloride (98-107) mmol/L Carbon Dioxide (22-30) mmol/L Anion Gap mmol/L BUN (9-20) mg/dL Creatinine (0.8-1.3) mg/dL Estimated GFR ml/min BUN/Creatinine Ratio % Glucose (75-100) mg/dL POC Glucose 173 H (70-105) mg/dL Lactic Acid 2.70 H* (0.7-2.0) mmol/L Calcium (8.4-10.2) mg/dL Total Bilirubin (0.1-1.2) mg/dL Direct Bilirubin (0-0.2) mg/dL Indirect Bilirubin mg/dL AST (5-40) units/L ALT (7-56) units/L Alkaline Phosphatase (35-129) units/L Total Creatine Kinase (55-170) units/L Total Protein (6.3-8.2) g/dL Albumin (3.9-5) g/dL Albumin/Globulin Ratio % Urine Color Yellow (Yellow) Urine Turbidity Turbid (Clear) Urine pH 5.0 (5.0-7.0) Ur Specific [place] 1.030 (1.003-1.030) Urine Protein 100 mg/dl (Negative) mg/dL Urine Glucose (UA) Negative (Negative) mg/dL Urine Ketones Negative (Negative) mg/dL Urine Blood Large A (Negative) Urine Nitrite Negative (Negative) Ur Reducing Substances Not Reportable Urine Bilirubin Negative (Negative) Urine Ictotest Not Reportable Urine Urobilinogen < 2.0 (<2.0) mg/dL Ur Leukocyte Esterase Large (Negative) Urine WBC (Auto) > 182.0 H (0.0-6.0) /HPF Urine RBC (Auto) > 182.0 (0.0-6.0) /HPF Urine Bacteria (Auto) 4+ (Negative) /HPF Urine WBC Clumps 3+ /HPF 01/11/22 01/11/22 Range/Units 12:21 12:21 WBC (4.5-11.0) K/mm3 RBC (3.65-5.03) M/mm3 Hgb (11.8-15.2) gm/dl Hct (35.5-45.6) % MCV (84-94) fl MCH (28-32) pg MCHC (32-34) % RDW (13.2-15.2) % Plt Count (140-440) K/mm3 Add Manual Diff Total Counted Seg Neuts % (Manual) (40.0-70.0) % Band Neutrophils % % Lymphocytes % (Manual) (13.4-35.0) % Reactive Lymphs % (Man) % Monocytes % (Manual) (0.0-7.3) % Eosinophils % (Manual) (0.0-4.3) % Basophils % (Manual) (0.0-1.8) % Metamyelocytes % % Myelocytes % % Promyelocytes % % Blast Cells % % Nucleated RBC % Seg Neutrophils # Man (1.8-7.7) K/mm3 Band Neutrophils # K/mm3 Lymphocytes # (Manual) (1.2-5.4) K/mm3 Abs React Lymphs (Man) K/mm3 Monocytes # (Manual) (0.0-0.8) K/mm3 Eosinophils # (Manual) (0.0-0.4) K/mm3 Basophils # (Manual) (0.0-0.1) K/mm3 Metamyelocytes # K/mm3 Myelocytes # K/mm3 Promyelocytes # K/mm3 Blast Cells # K/mm3 WBC Morphology Hypersegmented Neuts Hyposegmented Neuts Hypogranular Neuts Smudge Cells Toxic Granulation Toxic Vacuolation Dohle Bodies Pelger-Huet Anomaly Sarah Rods Platelet Estimate Clumped Platelets Plt Clumps, EDTA Large Platelets Giant Platelets Platelet Satelliting Plt Morphology Comment RBC Morphology Dimorphic RBCs Polychromasia Hypochromasia Poikilocytosis Anisocytosis Microcytosis Macrocytosis Spherocytes Pappenheimer Bodies Sickle Cells Target Cells Tear Drop Cells Ovalocytes Helmet Cells Greer-[place] Bodies Beaman Rings Kwabena Cells Bite Cells Crenated Cell Elliptocytes Acanthocytes (Spur) Rouleaux Hemoglobin C Crystals Schistocytes Malaria parasites Jigar Bodies Hem Pathologist Commnt Sodium 165 H* (137-145) mmol/L Potassium 5.8 H D (3.6-5.0) mmol/L Chloride 119.3 H (98-107) mmol/L Carbon Dioxide 21 L (22-30) mmol/L Anion Gap 31 mmol/L BUN 97 H (9-20) mg/dL Creatinine 5.3 H (0.8-1.3) mg/dL Estimated GFR 11 ml/min BUN/Creatinine Ratio 18 % Glucose 255 H (75-100) mg/dL POC Glucose (70-105) mg/dL Lactic Acid (0.7-2.0) mmol/L Calcium 9.1 (8.4-10.2) mg/dL Total Bilirubin (0.1-1.2) mg/dL Direct Bilirubin (0-0.2) mg/dL Indirect Bilirubin mg/dL AST (5-40) units/L ALT (7-56) units/L Alkaline Phosphatase (35-129) units/L Total Creatine Kinase 370 H (55-170) units/L Total Protein (6.3-8.2) g/dL Albumin (3.9-5) g/dL Albumin/Globulin Ratio % Urine Color (Yellow) Urine Turbidity (Clear) Urine pH (5.0-7.0) Ur Specific [place] (1.003-1.030) Urine Protein (Negative) mg/dL Urine Glucose (UA) (Negative) mg/dL Urine Ketones (Negative) mg/dL Urine Blood (Negative) Urine Nitrite (Negative) Ur Reducing Substances Urine Bilirubin (Negative) Urine Ictotest Urine Urobilinogen (<2.0) mg/dL Ur Leukocyte Esterase (Negative) Urine WBC (Auto) (0.0-6.0) /HPF Urine RBC (Auto) (0.0-6.0) /HPF Urine Bacteria (Auto) (Negative) /HPF Urine WBC Clumps /HPF - Radiology Data Radiology results: image reviewed interpreted by me: No acute findings on chest x-ray. - Medical Decision Making Laboratory evaluation reveals sodium 165, lactic acid 3.8, creatinine 5.0, WBC 14.3. Fluid resuscitation initiated. No acute findings on chest x-ray. Will admit to hospitalist for further management. Critical care attestation.: If time is entered above; I have spent that time in minutes in the direct care of this critically ill patient, excluding procedure time. ED Disposition Clinical Impression: Hypernatremia, Altered mental state, MAURI (acute kidney injury), Acute metabolic encephalopathy Disposition: 09 ADMITTED INPATIENT Is pt being admited?: Yes Does the pt Need Aspirin: No Condition: Stable
[2022-01-11] MEDS ORDERED: PIPERACILLIN/TAZOBACTAM 3.375 3.375 GM/50 ML BAG IV ONE (04:06)
--- NOTE | 2022-01-11 04:13 | XRay Report ---
XR chest 1V ap INDICATION / CLINICAL INFORMATION: Sepsis. COMPARISON: 12/22/2021 FINDINGS: SUPPORT DEVICES: None. HEART /PULMONARY VASCULATURE: No significant abnormality. LUNGS / PLEURA: No acute pulmonary or pleural abnormality. No pneumothorax. ADDITIONAL FINDINGS: No significant additional findings. IMPRESSION: 1. No acute findings. Signer Name: Tho Trejo MD Signed: 01/11/2022 4:08 AM Workstation Name: [id number]
[2022-01-11 04:42] LABS: Anisocytosis 1+; Basophils % (Manual) 0 % (0.0-1.8); Eosinophils % (Manual) 0 % (0.0-4.3); Platelet Estimate Consistent w Auto; Total Cells Counted 100
[2022-01-11] MEDS ORDERED: MORPHINE 4 MG/1 ML INJ IV PRN (05:40)
[2022-01-11] MEDS ORDERED: MORPHINE 2 MG/1 ML INJ IV PRN (05:40)
[2022-01-11] MEDS ORDERED: ALBUTEROL 2.5 MG/3 ML NEBU IH PRN (05:40)
[2022-01-11] MEDS ORDERED: ONDANSETRON 4 MG/2 ML INJ IV PRN (05:40)
[2022-01-11] MEDS ORDERED: DEXTROSE 50% IN WATER (25GM) 50 ML SYRINGE IV PRN (05:40)
[2022-01-11] MEDS ORDERED: SODIUM BICARBONATE 325 MG TAB FEEDTUBE PRN (05:43)
--- NOTE | 2022-01-11 05:49 | History and Physical Report ---
History of Present Illness Date of examination: 01/11/22 Date of admission: 01/11/22 Chief complaint: Altered mental status History of present illness: 66-year-old male with history of hypertension, CVA, CHF, diabetes status post PEG was [facility] for altered mental status. His baseline is reportedly AAO x3 with ability to perform ADLs. EMS reports hypotension of 70/40 and started IV fluid resuscitation in route. O n arrival patient opens eyes to my voice and attempts to speak his name. In the emergency room patient is found to have sodium of 165, lactic acid 3.80 BUN of 95 and creatinine 5.0, WBC 14.3, chest x-ray shows no acute finding. We are going to admit the patient we will put the patient on IV fluid will consult nephrology for evaluation we also put the patient on IV antibiotic Past History Past Medical History: diabetes (PEG, Indwelling Cath), heart failure, hypertension, stroke Past Surgical History: Other (Gastro tube) Social history: no significant social history Family history: hypertension Medications and Allergies Allergies Allergy/AdvReac Type Severity Reaction Status Date / Time No Known Allergies Allergy Verified 12/09/21 12:16 Home Medications Medication Instructions Recorded Confirmed Last Taken Type cephALEXin [Keflex] 500 mg PO Q6HR 7 Days #28 capsule 12/09/21 12/14/21 Unknown Rx Aspirin [[place] Aspirin EC] 81 mg PO QDAY 12/14/21 12/14/21 Unknown History Atorvastatin [Lipitor] 80 mg PO QHS 12/14/21 12/14/21 Unknown History Dapagliflozin Propanediol [Farxiga] 10 mg PO QDAY 12/14/21 12/14/21 Unknown History Insulin Detemir [Levemir VIAL] 25 unit SQ QHS 12/14/21 12/14/21 Unknown History Insulin Lispro [Admelog] 100 unit SQ ACHS 12/14/21 12/14/21 Unknown History Tamsulosin [Flomax] 0.4 mg PO QDAY 12/14/21 12/14/21 Unknown History carvediloL [Coreg] 3.125 mg PO BID 12/14/21 12/14/21 Unknown History Clopidogrel [Plavix] 75 mg PO QDAY tablet 12/27/21 Unknown Rx Sertraline [Zoloft] 100 mg PO QDAY #30 12/27/21 Unknown Rx Simple Syrup 15 ml FEEDTUBE PRN PRN oral.liqd 12/27/21 Unknown Rx Simple Syrup 30 ml FEEDTUBE PRN PRN oral.liqd 12/27/21 Unknown Rx Sodium Bicarbonate 325 mg FEEDTUBE PRN PRN #30 tablet 12/27/21 Unknown Rx Torsemide [Demadex] 20 mg PO QDAY #30 12/27/21 Unknown Rx Active Meds: Active Medications Acetaminophen (Acetaminophen 325 Mg Tab) 650 mg PO Q4H PRN PRN Reason: Pain MILD(1-3)/Fever >100.5/ROGERS Albuterol (Albuterol 2.5 Mg/3 Ml Nebu) 2.5 mg IH Q3HRT PRN PRN Reason: Shortness Of Breath Albuterol/Ipratropium (Ipratropium/Albuterol Sulfate 3 Ml Ampul.Neb) 1 ampul IH Q6HRT [facility] Aspirin (Aspirin Ec 81 Mg Tab) 81 mg PO QDAY [facility] Carvedilol (Carvedilol 3.125 Mg Tab) 3.125 mg PO BID [facility] Clopidogrel Bisulfate (Clopidogrel 75 Mg Tab) 75 mg PO QDAY [facility] Dextrose (Dextrose 50% In Water (25gm) 50 Ml Syringe) 50 ml IV Q30MIN PRN; Protocol PRN Reason: Hypoglycemia Famotidine (Famotidine 20 Mg/2 Ml Inj) 20 mg IV BID [facility] Heparin Sodium (Porcine) (Heparin 5,000 Unit/1 Ml Vial) 5,000 unit SUB-Q Q12HR [facility] Sodium Chloride (Nacl 0.45% 1000 Ml) 1,000 mls @ 125 mls/hr IV DIRECT [facility] Ceftriaxone Sodium (Rocephin/Ns 2 Gm/100 Ml) 2 gm in 100 mls @ 200 mls/hr IV Q24H [facility]; Protocol Insulin Human Lispro (Insulin Lispro 100 Unit/Ml) 0 unit SUB-Q Q6HR [facility]; Protocol Miscellaneous Medication (Atorvastatin [Lipitor]) 80 mg PO QHS [facility] Morphine Sulfate (Morphine 2 Mg/1 Ml Inj) 2 mg IV Q4H PRN PRN Reason: Pain, Moderate (4-6) Morphine Sulfate (Morphine 4 Mg/1 Ml Inj) 4 mg IV Q4H PRN PRN Reason: Pain , Severe (7-10) Ondansetron HCl (Ondansetron 4 Mg/2 Ml Inj) 4 mg IV Q8H PRN PRN Reason: Nausea And Vomiting Sodium Bicarbonate (Sodium Bicarbonate 325 Mg Tab) 325 mg FEEDTUBE PRN PRN PRN Reason: For Clogged Feeding Tube Sodium Chloride (Sodium Chloride 0.9% 10 Ml Flush Syringe) 10 ml IV BID [facility] Sodium Chloride (Sodium Chloride 0.9% 10 Ml Flush Syringe) 10 ml IV PRN PRN PRN Reason: LINE FLUSH Tamsulosin HCl (Tamsulosin 0.4 Mg Cap) 0.4 mg PO QDAY [facility] Review of Systems All systems: negative Constitutional: fatigue, malaise, lethargy, other (Altered mental status) Exam - Constitutional Vitals: Temp Pulse Resp BP Pulse Ox 97 F L 104 H 20 86/57 99 01/11/22 02:09 01/11/22 02:09 01/11/22 02:09 01/11/22 02:09 01/11/22 02:09 General appearance: Present: no acute distress, well-nourished - EENT Eyes: Present: PERRL ENT: hearing intact, clear oral mucosa - Neck Neck: Present: supple, normal ROM - Respiratory Respiratory effort: normal Respiratory: bilateral: CTA - Cardiovascular Heart Sounds: Present: S1 & S2. Absent: rub, click - Extremities Extremities: pulses symmetrical, No edema Peripheral Pulses: within normal limits - Abdominal General gastrointestinal: Present: soft, non-tender, non-distended, normal bowel sounds Male genitourinary: Present: normal - Integumentary Integumentary: Present: clear, warm, dry - Musculoskeletal Musculoskeletal: gait normal, strength equal bilaterally - Psychiatric Psychiatric: other (Patient is altered mental status) - Neurologic Neurologic: CNII-XII intact, moves all extremities Results - Labs CBC & Chem 7: 01/11/22 03:11 01/11/22 03:08 Labs: Laboratory Last Values WBC 14.3 K/mm3 (4.5-11.0) H 01/11/22 03:11 RBC 5.28 M/mm3 (3.65-5.03) H 01/11/22 03:11 Hgb 14.1 gm/dl (11.8-15.2) 01/11/22 03:11 Hct 44.8 % (35.5-45.6) 01/11/22 03:11 MCV 85 fl (84-94) 01/11/22 03:11 MCH 27 pg (28-32) L 01/11/22 03:11 MCHC 32 % (32-34) 01/11/22 03:11 RDW 25.5 % (13.2-15.2) H 01/11/22 03:11 Plt Count 96 K/mm3 (140-440) L 01/11/22 03:11 Add Manual Diff Complete 01/11/22 03:11 Total Counted 100 01/11/22 03:11 Seg Neuts % (Manual) 91.0 % (40.0-70.0) H 01/11/22 03:11 Band Neutrophils % 0 % 01/11/22 03:11 Lymphocytes % (Manual) 5.0 % (13.4-35.0) L 01/11/22 03:11 Reactive Lymphs % (Man) 0 % 01/11/22 03:11 Monocytes % (Manual) 4.0 % (0.0-7.3) 01/11/22 03:11 Eosinophils % (Manual) 0 % (0.0-4.3) 01/11/22 03:11 Basophils % (Manual) 0 % (0.0-1.8) 01/11/22 03:11 Metamyelocytes % 0 % 01/11/22 03:11 Myelocytes % 0 % 01/11/22 03:11 Promyelocytes % 0 % 01/11/22 03:11 Blast Cells % 0 % 01/11/22 03:11 Nucleated RBC % Not Reportable 01/11/22 03:11 Seg Neutrophils # Man 13.0 K/mm3 (1.8-7.7) H 01/11/22 03:11 Band Neutrophils # 0.0 K/mm3 01/11/22 03:11 Lymphocytes # (Manual) 0.7 K/mm3 (1.2-5.4) L 01/11/22 03:11 Abs React Lymphs (Man) 0.0 K/mm3 01/11/22 03:11 Monocytes # (Manual) 0.6 K/mm3 (0.0-0.8) 01/11/22 03:11 Eosinophils # (Manual) 0.0 K/mm3 (0.0-0.4) 01/11/22 03:11 Basophils # (Manual) 0.0 K/mm3 (0.0-0.1) 01/11/22 03:11 Metamyelocytes # 0.0 K/mm3 01/11/22 03:11 Myelocytes # 0.0 K/mm3 01/11/22 03:11 Promyelocytes # 0.0 K/mm3 01/11/22 03:11 Blast Cells # 0.0 K/mm3 01/11/22 03:11 WBC Morphology Not Reportable 01/11/22 03:11 Hypersegmented Neuts Not Reportable 01/11/22 03:11 Hyposegmented Neuts Not Reportable 01/11/22 03:11 Hypogranular Neuts Not Reportable 01/11/22 03:11 Smudge Cells Not Reportable 01/11/22 03:11 Toxic Granulation Not Reportable 01/11/22 03:11 Toxic Vacuolation Not Reportable 01/11/22 03:11 Dohle Bodies Not Reportable 01/11/22 03:11 Pelger-Huet Anomaly Not Reportable 01/11/22 03:11 Sarah Rods Not Reportable 01/11/22 03:11 Platelet Estimate Consistent w auto 01/11/22 03:11 Clumped Platelets Not Reportable 01/11/22 03:11 Plt Clumps, EDTA Not Reportable 01/11/22 03:11 Large Platelets Not Reportable 01/11/22 03:11 Giant Platelets Not Reportable 01/11/22 03:11 Platelet Satelliting Not Reportable 01/11/22 03:11 Plt Morphology Comment Not Reportable 01/11/22 03:11 RBC Morphology Not Reportable 01/11/22 03:11 Dimorphic RBCs Not Reportable 01/11/22 03:11 Polychromasia Not Reportable 01/11/22 03:11 Hypochromasia Not Reportable 01/11/22 03:11 Poikilocytosis Not Reportable 01/11/22 03:11 Anisocytosis 1+ 01/11/22 03:11 Microcytosis Not Reportable 01/11/22 03:11 Macrocytosis Not Reportable 01/11/22 03:11 Spherocytes Not Reportable 01/11/22 03:11 Pappenheimer Bodies Not Reportable 01/11/22 03:11 Sickle Cells Not Reportable 01/11/22 03:11 Target Cells Not Reportable 01/11/22 03:11 Tear Drop Cells Not Reportable 01/11/22 03:11 Ovalocytes Not Reportable 01/11/22 03:11 Helmet Cells Not Reportable 01/11/22 03:11 [place] Bodies Not Reportable 01/11/22 03:11 [place] Rings Not Reportable 01/11/22 03:11 [place] Cells Not Reportable 01/11/22 03:11 Bite Cells Not Reportable 01/11/22 03:11 Crenated Cell Not Reportable 01/11/22 03:11 Elliptocytes Not Reportable 01/11/22 03:11 Acanthocytes (Spur) Not Reportable 01/11/22 03:11 Rouleaux Not Reportable 01/11/22 03:11 Hemoglobin C Crystals Not Reportable 01/11/22 03:11 Schistocytes Not Reportable 01/11/22 03:11 Malaria parasites Not Reportable 01/11/22 03:11 Jigar Bodies Not Reportable 01/11/22 03:11 Hem Pathologist Commnt No 01/11/22 03:11 Sodium 165 mmol/L (137-145) H* 01/11/22 03:08 Potassium 4.7 mmol/L (3.6-5.0) 01/11/22 03:08 Chloride 119.2 mmol/L (98-107) H 01/11/22 03:08 Carbon Dioxide 27 mmol/L (22-30) 01/11/22 03:08 Anion Gap 24 mmol/L 01/11/22 03:08 BUN 95 mg/dL (9-20) H 01/11/22 03:08 Creatinine 5.0 mg/dL (0.8-1.3) H 01/11/22 03:08 Estimated GFR 12 ml/min 01/11/22 03:08 BUN/Creatinine Ratio 19 % 01/11/22 03:08 Glucose 150 mg/dL (75-100) H 01/11/22 03:08 Lactic Acid 3.80 mmol/L (0.7-2.0) H* 01/11/22 03:11 Calcium 9.9 mg/dL (8.4-10.2) 01/11/22 03:08 Total Bilirubin 0.60 mg/dL (0.1-1.2) 01/11/22 03:08 Direct Bilirubin 0.3 mg/dL (0-0.2) H 01/11/22 03:08 Indirect Bilirubin 0.3 mg/dL 01/11/22 03:08 AST 45 units/L (5-40) H 01/11/22 03:08 ALT 29 units/L (7-56) 01/11/22 03:08 Alkaline Phosphatase 180 units/L (35-129) H 01/11/22 03:08 Total Protein 7.3 g/dL (6.3-8.2) 01/11/22 03:08 Albumin 2.3 g/dL (3.9-5) L 01/11/22 03:08 Albumin/Globulin Ratio 0.5 % 01/11/22 03:08 Microbiology: Microbiology 01/11/22 03:08 Peripheral/Venous Blood Culture - Preliminary Culture in Progress 01/11/22 03:08 Peripheral/Venous Blood Culture - Preliminary Culture in Progress - Imaging and Cardiology Chest x-ray: report reviewed Assessment and Plan VTE prophylaxis?: Chemical Plan of care discussed with patient/family: Yes - Patient Problems (1) Acute metabolic encephalopathy Status: Acute Plan to address problem: Admit the patient to the IMCU. Metabolic encephalopathy secondary to renal failure, hypernatremia and SIRS. Half-normal saline at the rate of 125 cc/h. Rocephin 2 g IV daily. Nephrology consult. Recheck CBC BMP in the morning (2) MAURI (acute kidney injury) Status: Acute Plan to address problem: Avoid nephrotoxic drug. Renally dose medication.Half-normal saline at the rate of 125 cc/h. Nephrology consult. Recheck CBC BMP in the morning (3) Hypertension Status: Acute Plan to address problem: Hydralazine 10 mg IV every 6 hours as needed. We continue the home medication (4) Congestive heart failure Status: Acute Plan to address problem: Stable. Maintain input output Daily weight. Outpatient follow-up with cardiology (5) Diabetes Status: Acute Plan to address problem: Accu-Chek every 6 hours with Humalog moderate dose coverage. Diabetic education. Recheck BMP in the morning (6) Hypernatremia Status: Acute Plan to address problem: Half-normal saline at the rate of 125 cc/h. Nephrology consult. Recheck CBC BMP in the morning (7) SIRS (systemic inflammatory response syndrome) Status: Acute Plan to address problem: Half-normal saline at the rate of 125 cc/h. Rocephin 2 g IV daily. Recheck CBC BMP in the morning (8) DVT prophylaxis Status: Acute Plan to address problem: Heparin 5000 units subcu every 12 hours for DVT prophylaxis. Pepcid 20 mg IV every 12 hours for GI prophylaxis. Patient is a full code
[2022-01-11] MEDS ORDERED: hydrALAZINE 20 MG/1 ML INJ IV PRN (05:54)
[2022-01-11] MEDS: cefTRIAXone/NS 2 GM/100 ML 2 GM/100 ML BAG IV SCH (07:23)
[2022-01-11] MEDS: INSULIN LISPRO 100 UNIT/ML SUB-Q SCH ×3 (07:23→17:31)
[2022-01-11] MEDS ORDERED: IPRATROPIUM/ALBUTEROL SULFATE 3 ML AMPUL.NEB IH SCH (08:00)
[2022-01-11 08:34] LABS: Bacteria,Urine 4+ /HPF (Negative)
[2022-01-11 08:36] LABS: RBC,Urine > 182.0 /HPF (0.0-6.0); WBC,Urine > 182.0 /HPF (0.0-6.0)
[2022-01-11 08:53] LABS: Bilirubin,Urine Negative (Negative); Blood,Urine Large (Negative); Color,Urine Yellow (Yellow); Urobilinogen,Urine < 2.0 mg/dL (<2.0)
[2022-01-11] MEDS: SODIUM CHLORIDE 0.45% 1000 ML 1,000 ML IV SCH ×2 (09:05→20:48)
[2022-01-11] MEDS ORDERED: FAMOTIDINE 20 MG/2 ML INJ IV SCH (10:00)
[2022-01-11] MEDS: carvediloL 3.125 MG TAB PO SCH ×2 (11:16→21:12)
--- NOTE | 2022-01-11 11:47 | Consultation ---
History of Present Illness - Reason for Consult Consult date: 01/11/22 acute renal failure - History of Present Illness 66-year-old male with history of hypertension, CVA, CHF, diabetes status post PEG was brought to the emergency room from residential by EMS for altered mental status. In the emergency room patient is found to have sodium of 165, lactic acid 3.80 BUN of 95 and creatinine 5.0, WBC 14.3, chest x-ray shows no acute finding. Renal consult was requested for MAURI Past History Past Medical History: diabetes (PEG, Indwelling Cath), heart failure, hypertension, stroke Past Surgical History: Other (Gastro tube) Social history: no significant social history Family history: hypertension Medications and Allergies Allergies Allergy/AdvReac Type Severity Reaction Status Date / Time No Known Allergies Allergy Verified 12/09/21 12:16 Home Medications Medication Instructions Recorded Confirmed Last Taken Type cephALEXin [Keflex] 500 mg PO Q6HR 7 Days #28 capsule 12/09/21 12/14/21 Unknown Rx Aspirin [[place] Aspirin EC] 81 mg PO QDAY 12/14/21 12/14/21 Unknown History Atorvastatin [Lipitor] 80 mg PO QHS 12/14/21 12/14/21 Unknown History Dapagliflozin Propanediol [Farxiga] 10 mg PO QDAY 12/14/21 12/14/21 Unknown History Insulin Detemir [Levemir VIAL] 25 unit SQ QHS 12/14/21 12/14/21 Unknown History Insulin Lispro [Admelog] 100 unit SQ ACHS 12/14/21 12/14/21 Unknown History Tamsulosin [Flomax] 0.4 mg PO QDAY 12/14/21 12/14/21 Unknown History carvediloL [Coreg] 3.125 mg PO BID 12/14/21 12/14/21 Unknown History Clopidogrel [Plavix] 75 mg PO QDAY tablet 12/27/21 Unknown Rx Sertraline [Zoloft] 100 mg PO QDAY #30 12/27/21 Unknown Rx Simple Syrup 15 ml FEEDTUBE PRN PRN oral.liqd 12/27/21 Unknown Rx Simple Syrup 30 ml FEEDTUBE PRN PRN oral.liqd 12/27/21 Unknown Rx Sodium Bicarbonate 325 mg FEEDTUBE PRN PRN #30 tablet 12/27/21 Unknown Rx Torsemide [Demadex] 20 mg PO QDAY #30 12/27/21 Unknown Rx Active Meds: Active Medications Acetaminophen (Acetaminophen 325 Mg Tab) 650 mg PO Q4H PRN PRN Reason: Pain MILD(1-3)/Fever >100.5/ROGERS Albuterol (Albuterol 2.5 Mg/3 Ml Nebu) 2.5 mg IH Q3HRT PRN PRN Reason: Shortness Of Breath Aspirin (Aspirin Ec 81 Mg Tab) 81 mg PO QDAY [facility] Atorvastatin Calcium (Atorvastatin 40 Mg Tab) 80 mg PO QHS [facility] Carvedilol (Carvedilol 3.125 Mg Tab) 3.125 mg PO BID [facility] Last Admin: 01/11/22 11:16 Dose: Not Given Clopidogrel Bisulfate (Clopidogrel 75 Mg Tab) 75 mg PO QDAY [facility] Dextrose (Dextrose 50% In Water (25gm) 50 Ml Syringe) 50 ml IV Q30MIN PRN; Protocol PRN Reason: Hypoglycemia Famotidine (Famotidine 20 Mg/2 Ml Inj) 20 mg IV DAILY [facility] Heparin Sodium (Porcine) (Heparin 5,000 Unit/1 Ml Vial) 5,000 unit SUB-Q Q12HR [facility] Hydralazine HCl (Hydralazine 20 Mg/1 Ml Inj) 10 mg IV Q6H PRN PRN Reason: Blood Pressure Sodium Chloride (Nacl 0.45% 1000 Ml) 1,000 mls @ 125 mls/hr IV DIRECT [facility] Last Admin: 01/11/22 09:05 Dose: 125 mls/hr Ceftriaxone Sodium (Rocephin/Ns 2 Gm/100 Ml) 2 gm in 100 mls @ 200 mls/hr IV Q24H [facility]; Protocol Last Admin: 01/11/22 07:23 Dose: 200 mls/hr Insulin Human Lispro (Insulin Lispro 100 Unit/Ml) 0 unit SUB-Q Q6HR [facility]LEX[facility]; P rotocol Last Admin: 01/11/22 07:23 Dose: Not Given Morphine Sulfate (Morphine 2 Mg/1 Ml Inj) 2 mg IV Q4H PRN PRN Reason: Pain, Moderate (4-6) Morphine Sulfate (Morphine 4 Mg/1 Ml Inj) 4 mg IV Q4H PRN PRN Reason: Pain , Severe (7-10) Ondansetron HCl (Ondansetron 4 Mg/2 Ml Inj) 4 mg IV Q8H PRN PRN Reason: Nausea And Vomiting Sodium Bicarbonate (Sodium Bicarbonate 325 Mg Tab) 325 mg FEEDTUBE PRN PRN PRN Reason: For Clogged Feeding Tube Sodium Chloride (Sodium Chloride 0.9% 10 Ml Flush Syringe) 10 ml IV BID [facility] Last Admin: 01/11/22 10:17 Dose: 10 ml Sodium Chloride (Sodium Chloride 0.9% 10 Ml Flush Syringe) 10 ml IV PRN PRN PRN Reason: LINE FLUSH Tamsulosin HCl (Tamsulosin 0.4 Mg Cap) 0.4 mg PO QDAY [facility] Review of Systems ROS unobtainable: due to mental status Exam - Vital Signs Vital signs: Vital Signs Temp Pulse Resp BP Pulse Ox 97 F L 104 H 20 86/57 99 01/11/22 02:09 01/11/22 02:09 01/11/22 02:09 01/11/22 02:09 01/11/22 02:09 - General Appearance General appearance: well-developed, cachectic EENT: ATNC, PERRL, mucous membranes dry Neck: Present: neck supple Respiratory: Clear to Ascultation Heart: tachycardia Gastrointestinal: Present: normoactive bowel sounds. Absent: tenderness, distended, masses Integumentary: no rash, warm and dry Neurologic: other (does not follow commands) Musculoskeletal: Present: other (no edema in BLE) Psychiatric: other (does not answer questions) Results - Lab Results 01/11/22 03:11 01/11/22 03:08 Most recent lab results Calcium 9.9 mg/dL (8.4-10.2) 01/11/22 03:08 Assessment and Plan (1) Acute metabolic encephalopathy (2) MAURI (acute kidney injury) (3) Hypertension (4) Congestive heart failure (5) Diabetes (6) Hypernatremia (7) SIRS (systemic inflammatory response syndrome) MAURI likely from prerenal azotemia, could not rule ischemic ATN from low BP will start 1/2 NS 125 cc/h to correct water defecit and for volume repletion. no indication for HD, but may need to be started if no imprvement within the next 24-48 in Cr will check renal US will check urine lytes and UA will check CK BMP Q12H ordered renally dose meds strict I&O daily weight
[2022-01-11] MEDS ORDERED: SODIUM CHLORIDE 0.45% 1000 ML 1,000 ML IV SCH (12:00)
[2022-01-11 12:50] LABS: Calcium 9.1 mg/dL (8.4-10.2)
--- NOTE | 2022-01-11 15:14 | Ultrasound Report ---
ULTRASOUND RENAL INDICATION: renal failure. COMPARISON: No relevant prior imaging study available. FINDINGS: RIGHT KIDNEY: Size: 9.6 cm. Echogenicity: Increased. Cortical thickness: Normal. Hydronephrosis: None. Cyst or mass: None. Stones: None. LEFT KIDNEY: Size: 9.1 cm. Echogenicity: Increased. Cortical thickness: Normal. Hydronephrosis: None. Cyst or mass: None. Stones: None. Urinary Bladder: Bladder was decompressed and could not be evaluated.. Free Fluid: None. Additional Findings: None. IMPRESSION 1. Both kidneys are echogenic consistent with medical renal disease. 2. No evidence of hydronephrosis or solid renal mass.. Signer Name: Becka Jones MD Signed: 01/11/2022 3:10 PM Workstation Name: [id number]
[2022-01-11] MEDS: FAMOTIDINE 20 MG/2 ML INJ IV SCH (17:31)
[2022-01-11] MEDS: CLOPIDOGREL 75 MG TAB PO SCH (17:31)
[2022-01-11] MEDS: HEPARIN 5,000 UNIT/1 ML VIAL SUB-Q SCH ×2 (17:32→21:16)
[2022-01-11] MEDS: TAMSULOSIN 0.4 MG CAP PO SCH (17:32)
[2022-01-11] MEDS: ASPIRIN EC 81 MG TAB PO SCH (17:32)
[2022-01-11] MEDS ORDERED: NON-FORMULARY EACH (Atorvastatin [Lipitor] 80 MG Tablet) PO SCH (22:00)
[2022-01-12] MEDS ORDERED: SODIUM CHLORIDE 0.9% 1000 ML 1,000 ML IV ONE ×2 (00:21→04:11)
[2022-01-12] MEDS ORDERED: SODIUM CHLORIDE 0.9% 1000 ML 1,000 ML ONE (00:23)
[2022-01-12] MEDS: INSULIN LISPRO 100 UNIT/ML SUB-Q SCH ×5 (00:37→23:15)
[2022-01-12 01:08] LABS: Calcium 8.6 mg/dL (8.4-10.2)
[2022-01-12 04:47] LABS: Mean Corpuscular HGB Conc 30 % (32-34); Mean Corpuscular Volume 87 fl (84-94); Red Blood Count 4.64 M/mm3 (3.65-5.03)
[2022-01-12 05:06] LABS: Hematocrit 40.4 % (35.5-45.6); Platelet Count 69 K/mm3 (140-440)
[2022-01-12 05:13] LABS: Calcium 8.3 mg/dL (8.4-10.2)
[2022-01-12 05:53] LABS: Anisocytosis 1+; Band Neutrophils # (Manual) 0.1 K/mm3; Basophils % (Manual) 0 % (0.0-1.8); Eosinophils % (Manual) 0 % (0.0-4.3); Monocytes % (Manual) 2.5 % (0.0-7.3); Platelet Estimate Consistent w Auto; Total Cells Counted 200
[2022-01-12] MEDS: cefTRIAXone/NS 2 GM/100 ML 2 GM/100 ML BAG IV SCH (05:53)
[2022-01-12] MEDS: SODIUM CHLORIDE 0.45% 1000 ML 1,000 ML IV SCH ×2 (08:13→19:08)
--- NOTE | 2022-01-12 09:37 | Progress Note ---
Assessment and Plan (1) Acute metabolic encephalopathy (2) MAURI (acute kidney injury) (3) Hypertension (4) Congestive heart failure (5) Diabetes (6) Hypernatremia (7) SIRS (systemic inflammatory response syndrome) rising Cr and BUN, no UOP was recorded, lam requested likely will need HD in the next 24 hours if no improvement in kidney function cont 1/2 NS, Na is improving renal US -ve for obstruction urine lytes are pending BMP Q12H ordered renally dose meds strict I&O daily weight Subjective Date of service: 01/12/22 Principal diagnosis: MAURI Interval history: no acute distress Objective - Vital Signs Vital signs: Vital Signs - 12hr 01/11/22 01/11/22 01/11/22 21:46 22:00 22:15 Temperature Pulse Rate 117 H 118 H 117 H Respiratory 41 H 39 H 40 H Rate Blood Pressure 156/133 121/51 93/58 O2 Sat by Pulse 87 Oximetry 01/11/22 01/11/22 01/11/22 22:30 22:45 23:00 Temperature Pulse Rate 117 H 111 H 110 H Respiratory 40 H 40 H 40 H Rate Blood Pressure 88/56 96/59 90/59 O2 Sat by Pulse 98 Oximetry 01/11/22 01/11/22 01/11/22 23:15 23:30 23:45 Temperature Pulse Rate 111 H 111 H 111 H Respiratory 39 H 38 H 37 H Rate Blood Pressure 93/55 89/52 89/54 O2 Sat by Pulse 97 97 Oximetry 01/11/22 01/11/22 01/12/22 23:49 23:58 00:00 Temperature 99.4 F Pulse Rate 109 H 110 H Respiratory 40 H 42 H Rate Blood Pressure 89/54 89/54 O2 Sat by Pulse 94 89 Oximetry 01/12/22 01/12/22 01/12/22 00:15 00:30 00:45 Temperature Pulse Rate 109 H 109 H 102 H Respiratory 41 H 37 H 38 H Rate Blood Pressure 89/58 86/57 101/53 O2 Sat by Pulse 81 L Oximetry 01/12/22 01/12/22 01/12/22 01:00 01:15 01:30 Temperature Pulse Rate 103 H 102 H 105 H Respiratory 33 H 32 H 27 H Rate Blood Pressure 103/56 105/63 101/64 O2 Sat by Pulse Oximetry 01/12/22 01/12/22 01/12/22 01:45 02:00 02:15 Temperature Pulse Rate 105 H 106 H 105 H Respiratory 32 H 33 H 22 Rate Blood Pressure 100/64 101/67 102/60 O2 Sat by Pulse 97 99 Oximetry 01/12/22 01/12/22 01/12/22 02:30 02:45 03:00 Temperature Pulse Rate 103 H 100 H 98 H Respiratory 31 H 32 H 34 H Rate Blood Pressure 102/61 99/58 94/64 O2 Sat by Pulse 98 Oximetry 01/12/22 01/12/22 01/12/22 03:15 03:30 03:37 Temperature 99.8 F H Pulse Rate 97 H 97 H Respiratory 31 H 28 H Rate Blood Pressure 90/59 89/60 O2 Sat by Pulse 98 Oximetry 01/12/22 01/12/22 01/12/22 03:46 04:00 04:15 Temperature Pulse Rate 96 H 94 H 94 H Respiratory 30 H 31 H 29 H Rate Blood Pressure 83/49 O2 Sat by Pulse 98 98 Oximetry 01/12/22 01/12/22 01/12/22 04:30 04:45 05:00 Temperature Pulse Rate 93 H 87 87 Respiratory 29 H 28 H 27 H Rate Blood Pressure 81/50 89/46 88/44 O2 Sat by Pulse 99 99 99 Oximetry 01/12/22 01/12/22 01/12/22 05:15 05:30 05:45 Temperature Pulse Rate 89 86 86 Respiratory 26 H 26 H 25 H Rate Blood Pressure 87/50 88/49 86/48 O2 Sat by Pulse 99 100 99 Oximetry 01/12/22 06:00 Temperature Pulse Rate 93 H Respiratory 27 H Rate Blood Pressure 87/47 O2 Sat by Pulse 99 Oximetry - Lab 01/12/22 04:30 01/12/22 04:30 Most recent lab results Calcium 8.3 mg/dL (8.4-10.2) L 01/12/22 04:30 Phosphorus 9.30 mg/dL (2.5-4.5) H 01/12/22 04:30 Medications & Allergies - Medications Allergies/Adverse Reactions: Allergies No Known Allergies Allergy (Verified 12/09/21 12:16) Home Medications: Home Medications Medication Instructions Recorded Confirmed Last Taken Type cephALEXin [Keflex] 500 mg PO Q6HR 7 Days #28 capsule 12/09/21 12/14/21 Unknown Rx Aspirin [Robbins Aspirin EC] 81 mg PO QDAY 12/14/21 12/14/21 Unknown History Atorvastatin [Lipitor] 80 mg PO QHS 12/14/21 12/14/21 Unknown History Dapagliflozin Propanediol [Farxiga] 10 mg PO QDAY 12/14/21 12/14/21 Unknown History Insulin Detemir [Levemir VIAL] 25 unit SQ QHS 12/14/21 12/14/21 Unknown History Insulin Lispro [Admelog] 100 unit SQ ACHS 12/14/21 12/14/21 Unknown History Tamsulosin [Flomax] 0.4 mg PO QDAY 12/14/21 12/14/21 Unknown History carvediloL [Coreg] 3.125 mg PO BID 12/14/21 12/14/21 Unknown History Clopidogrel [Plavix] 75 mg PO QDAY tablet 12/27/21 Unknown Rx Sertraline [Zoloft] 100 mg PO QDAY #30 12/27/21 Unknown Rx Simple Syrup 15 ml FEEDTUBE PRN PRN oral.liqd 12/27/21 Unknown Rx Simple Syrup 30 ml FEEDTUBE PRN PRN oral.liqd 12/27/21 Unknown Rx Sodium Bicarbonate 325 mg FEEDTUBE PRN PRN #30 tablet 12/27/21 Unknown Rx Torsemide [Demadex] 20 mg PO QDAY #30 12/27/21 Unknown Rx Active Medications: Generic Name Dose Route Start Last Admin Trade Name Freq PRN Reason Stop Dose Admin Acetaminophen 650 mg 01/11/22 05:40 Acetaminophen 325 Mg Tab PO Q4H PRN Pain MILD(1-3)/Fever >100.5/ROGERS Albuterol 2.5 mg 01/11/22 05:40 Albuterol 2.5 Mg/3 Ml Nebu IH Q3HRT PRN Shortness Of Breath Aspirin 81 mg 01/11/22 10:00 01/11/22 17:32 Aspirin Ec 81 Mg Tab PO Not Given QDAY ALEXSANDRA Atorvastatin Calcium 80 mg 01/11/22 22:00 01/11/22 21:16 Atorvastatin 40 Mg Tab PO Not Given QHS ALEXSANDRA Carvedilol 3.125 mg 01/11/22 10:00 01/11/22 21:12 Carvedilol 3.125 Mg Tab PO Not Given BID [facility] Clopidogrel Bisulfate 75 mg 01/11/22 10:00 01/11/22 17:31 Clopidogrel 75 Mg Tab PO Not Given QDAY [facility] Dextrose 50 ml 01/11/22 05:40 Dextrose 50% In Water (25gm) 50 Ml Syringe IV Q30MIN PRN Hypoglycemia Protocol Dextrose 25 ml 01/12/22 10:00 Dextrose 50% In Water (25gm) 50 Ml Syringe IV 01/13/22 10:01 Q30MIN ALEXSANDRA Protocol Famotidine 20 mg 01/11/22 10:00 01/11/22 17:31 Famotidine 20 Mg/2 Ml Inj IV Not Given DAILY [facility] Hydralazine HCl 10 mg 01/11/22 05:54 Hydralazine 20 Mg/1 Ml Inj IV Q6H PRN Blood Pressure Sodium Chloride 1,000 mls @ 125 mls/hr 01/11/22 06:00 01/12/22 08:13 Nacl 0.45% 1000 Ml IV 125 mls/hr DIRECT ALEXSANDRA Administration Ceftriaxone Sodium 2 gm in 100 mls @ 200 mls/hr 01/11/22 06:00 01/12/22 05:53 Rocephin/Ns 2 Gm/100 Ml IV 200 mls/hr Q24H [facility] Administration Protocol Calcium Gluconate 1,000 mg/ 110 mls @ 660 mls/hr 01/12/22 09:31 Sodium Chloride IV 01/12/22 09:40 ONCE ONE Insulin Glargine 10 units 01/12/22 22:00 Insulin Glargine 100 Units/Ml SUB-Q QHS [facility] Insulin Human Lispro 0 unit 01/11/22 06:00 01/12/22 05:53 Insulin Lispro 100 Unit/Ml SUB-Q 3 unit Q6HR [facility] Administration Protocol Midodrine 10 mg 01/12/22 09:03 Midodrine 10 Mg Tab PO TID@0800,1200,1600 [facility] Ondansetron HCl 4 mg 01/11/22 05:40 Ondansetron 4 Mg/2 Ml Inj IV Q8H PRN Nausea And Vomiting Sodium Bicarbonate 325 mg 01/11/22 05:43 Sodium Bicarbonate 325 Mg Tab FEEDTUBE PRN PRN For Clogged Feeding Tube Sodium Chloride 10 ml 01/11/22 10:00 01/11/22 21:18 Sodium Chloride 0.9% 10 Ml Flush Syringe IV 10 ml BID ALEXSANDRA Administration Sodium Chloride 10 ml 01/11/22 05:40 Sodium Chloride 0.9% 10 Ml Flush Syringe IV PRN PRN LINE FLUSH Sodium Polystyrene Sulfonate 30 gm 01/12/22 09:32 Sodium Polystyrene 15 Gm/60 Ml Oral Liqd PO 01/12/22 09:33 ONCE ONE Tamsulosin HCl 0.4 mg 01/11/22 10:00 01/11/22 17:32 Tamsulosin 0.4 Mg Cap PO Not Given QDAY ALEXSANDRA
[2022-01-12] MEDS ORDERED: INSULIN REGULAR, HUMAN 100 UNITS/1 ML IV ONE (10:00)
[2022-01-12] MEDS ORDERED: SODIUM POLYSTYRENE 15 GM/60 ML ORAL LIQD PO ONE (10:00)
[2022-01-12] MEDS ORDERED: DEXTROSE 50% IN WATER (25GM) 50 ML SYRINGE IV SCH (10:00)
[2022-01-12] MEDS ORDERED: CALCIUM GLUCONATE 1,000 MG in SODIUM CHLORIDE 0.9% 100 ML IV ONE (10:00)
[2022-01-12] MEDS: ASPIRIN EC 81 MG TAB PO SCH (11:11)
[2022-01-12] MEDS: CLOPIDOGREL 75 MG TAB PO SCH (11:11)
[2022-01-12] MEDS: FAMOTIDINE 20 MG/2 ML INJ IV SCH (11:11)
[2022-01-12] MEDS: MIDODRINE 10 MG TAB PO SCH ×3 (11:11→15:30)
[2022-01-12] MEDS: TAMSULOSIN 0.4 MG CAP PO SCH (11:11)
[2022-01-12] MEDS: carvediloL 3.125 MG TAB PO SCH (11:12)
--- NOTE | 2022-01-12 12:43 | Progress Note ---
<KELY MCINTOSH - Last Filed: 01/12/22 19:02> Assessment and Plan Assessment and plan: This is a 66-year-old male with known past medical history of hypertension, CVA, CHF, DM, dysphagia s/p PEGtube placement admitted for sepsis and MAURI Hospital Course to Date: 01/12: Patient remains encephalopathic but more awake, following simple commands. Still hypotensive this am, probable sepsis. Febrile overnight with worsening leukocytosis this am. Cultures are pending. Continue IVF hydration and empiric IV abx. Multiple wounds, including unstageable sacral decub and MRSA PCR positive. IV Vanco was also initiated, renal dose per pharmacy. ID consulted. Midodrine also added TID. General surgery and wound care was also consulted for wounds eval and treatment. Worsening renal function with hypernatremia and hyperkalemia also noted, continue IVF hydration per nephro. Worsening thrombocytopenia also noted, no s/s of any active bleeding. H&H stable. Hold AC for now, HIT panel ordered. Lantus qhs added for hyperglycemia, continue BG and SSI Q6hrs Assessment and Plan #Acute Metabolic Encephalopathy - Multifactorial: probably due to azotemia vs hypernatremia, vs infectious process - on Continous IVF hydration and empiric IV abx - Mentation with mild improvement, following simple commands - Possible CT head tomorrow if no significant improvement in mentation - Frequent reorientation - Avoid sedatives agents - Maintenance of sleep-wake cycle #Hypotension 2/2 #Sepsis Vs hypovolemia #H/o Congestive Heart Failure(CHF) - Presented with tachycardia and hypotension - Patient remains hypotension this am, was febrile overnight and worsen leukocytosis this am - 12/14/21 Ech reviewed EF 45-50%, patient appear hypovolemic and dry - Continue IVF hydration per Nephro - Hold home antihypertensive agents - Midodrine added - Continue rehydration with cont. IVF - Continue blood pressure monitor per protocol - Maintain MAP above 65 - Strict intake and output and daily weight #Acute Kidney Injury(MAURI) most likely ATN #Hypernatremia #Hyperkalemia - probably due to hypotension/hypovelemia - Per record Scr. was 1.2 from last admit on 12/2021 - Scr. as high as 5.9, BUN 111 - X1 dose of kayexalate, FWF for hypernatremia - Nephrology on consult, appreciated recommendation - Urine lytes and renal US pending - Strict intake and output - Avoid nephrotoxic medications; Renally dose medications - [place] in place, oliguric this am - Continue IVF hydration per nephro - Monitor and replace electrolytes as needed #Sepsis #Urinary Tract Infection #Sacral Decubitis Ulcer #Leukocytosis #Lactic Acidosis - Presented with tachycardia and hypotension - Patient remains hypotension this am, was febrile overnight and worsen leukocytosis this am - Cultures pending, MRSA PCR positive - With multiple wounds, including malodourous, unstageable sacral decubitis. - On Empiric IV Abx- Rocephin, IV Vanco added, renally dose per pharmacy - ID consulted - Continue to F/U on cultures - General Surgery consulted for possible debridement, wound care eval and treat - Wound care also consulted #Dysphagia s/p PEGtube Placement - Nutrition consulted - Initiated enteral nutrition #Thrombocytopenia - Presented with low plt - Plt count worsen this am - no s/s of any active bleeding - Will hold AC- heparin SubQ for now - H&H stable - HIT panel ordered #Type 2 Diabetes with Hyperglycemia - Continue BG and SSI Q6hrs - Lantus added qHs - While critically ill target blood glucose of 140-180 #GI/DVT Prophylaxis - PPI- Pepcid - SCDs to bilateral lower extremities while in bed The high probability of a clinically significant, sudden or life threatening deterioration of the [multiple] system(s) required my full and direct attention, intervention and personal management. The aggregate critical care time was [60] minutes. This time is in addition to time spent performing reported procedures but includes the following: [x] Data Review and interpretation [x] Patient assessment and monitoring of vital signs [x] Documentation [x] Medication orders and management Disposition Plan: IMCU Total Time Spent with Patient (Minutes): 60 History Interval history: Patient seen and examined at the bedside. Awake and confused, only AAO to self. Following simple commands. Stable on 3L NC. Remains hypotensive this am, on continuous IVF. RIRI overnight Hospitalist Physical - Constitutional Vitals: Temp Pulse Resp BP Pulse Ox 99.8 F H 87 27 H 91/34 99 01/12/22 03:37 01/12/22 11:12 01/12/22 06:00 01/12/22 11:12 01/12/22 10:55 General appearance: Present: no acute distress, cachectic - EENT Eyes: Present: PERRL ENT: hearing intact - Neck Neck: Present: normal ROM - Respiratory Respiratory effort: normal Respiratory: bilateral: diminished - Cardiovascular Rhythm: regular Heart Sounds: Present: S1 & S2 - Extremities Extremities: no ischemia, pulses intact, pulses symmetrical Extremity abnormal: edema - Peripheral Assessment Generalized Edema Type: Non-pitting Edema Degree: 1+ Capillary Refill: < 3 seconds Skin Temperature: Warm Peripheral Pulses: within normal limits - Abdominal General gastrointestinal: soft, non-distended, normal bowel sounds - Integumentary Integumentary: Present: warm, erythema (With multiple wounds. Unstageable Sacral decubitis Ulcer) - Psychiatric Psychiatric: appropriate mood/affect, other (AAOX1, confused, follow simple commands) - Neurologic Neurologic: moves all extremities, other (AAOX1, confused, follow simple commands) - Allied Health Allied health notes reviewed: nursing, case management Results - Labs CBC & Chem 7: 01/12/22 04:30 01/12/22 Unknown Labs: Laboratory Last Values WBC 20.2 K/mm3 (4.5-11.0) H 01/12/22 04:30 RBC 4.64 M/mm3 (3.65-5.03) 01/12/22 04:30 Hgb 12.0 gm/dl (11.8-15.2) 01/12/22 04:30 Hct 40.4 % (35.5-45.6) 01/12/22 04:30 MCV 87 fl (84-94) 01/12/22 04:30 MCH 26 pg (28-32) L 01/12/22 04:30 MCHC 30 % (32-34) L 01/12/22 04:30 RDW 25.0 % (13.2-15.2) H 01/12/22 04:30 Plt Count 69 K/mm3 (140-440) L 01/12/22 04:30 Add Manual Diff Complete 01/12/22 04:30 Total Counted 200 01/12/22 04:30 Seg Neuts % (Manual) 95.5 % (40.0-70.0) H 01/12/22 04:30 Band Neutrophils % 0.5 % 01/12/22 04:30 Lymphocytes % (Manual) 1.5 % (13.4-35.0) L 01/12/22 04:30 Reactive Lymphs % (Man) 0 % 01/12/22 04:30 Monocytes % (Manual) 2.5 % (0.0-7.3) 01/12/22 04:30 Eosinophils % (Manual) 0 % (0.0-4.3) 01/12/22 04:30 Basophils % (Manual) 0 % (0.0-1.8) 01/12/22 04:30 Metamyelocytes % 0 % 01/12/22 04:30 Myelocytes % 0 % 01/12/22 04:30 Promyelocytes % 0 % 01/12/22 04:30 Blast Cells % 0 % 01/12/22 04:30 Nucleated RBC % Not Reportable 01/12/22 04:30 Seg Neutrophils # Man 19.3 K/mm3 (1.8-7.7) H 01/12/22 04:30 Band Neutrophils # 0.1 K/mm3 01/12/22 04:30 Lymphocytes # (Manual) 0.3 K/mm3 (1.2-5.4) L 01/12/22 04:30 Abs React Lymphs (Man) 0.0 K/mm3 01/12/22 04:30 Monocytes # (Manual) 0.5 K/mm3 (0.0-0.8) 01/12/22 04:30 Eosinophils # (Manual) 0.0 K/mm3 (0.0-0.4) 01/12/22 04:30 Basophils # (Manual) 0.0 K/mm3 (0.0-0.1) 01/12/22 04:30 Metamyelocytes # 0.0 K/mm3 01/12/22 04:30 Myelocytes # 0.0 K/mm3 01/12/22 04:30 Promyelocytes # 0.0 K/mm3 01/12/22 04:30 Blast Cells # 0.0 K/mm3 01/12/22 04:30 WBC Morphology Not Reportable 01/12/22 04:30 Hypersegmented Neuts Not Reportable 01/12/22 04:30 Hyposegmented Neuts Not Reportable 01/12/22 04:30 Hypogranular Neuts Not Reportable 01/12/22 04:30 Smudge Cells Not Reportable 01/12/22 04:30 Toxic Granulation Not Reportable 01/12/22 04:30 Toxic Vacuolation Not Reportable 01/12/22 04:30 Dohle Bodies Not Reportable 01/12/22 04:30 Pelger-Huet Anomaly Not Reportable 01/12/22 04:30 Sarah Rods Not Reportable 01/12/22 04:30 Platelet Estimate Consistent w auto 01/12/22 04:30 Clumped Platelets Not Reportable 01/12/22 04:30 Plt Clumps, EDTA Not Reportable 01/12/22 04:30 Large Platelets Not Reportable 01/12/22 04:30 Giant Platelets Not Reportable 01/12/22 04:30 Platelet Satelliting Not Reportable 01/12/22 04:30 Plt Morphology Comment Not Reportable 01/12/22 04:30 RBC Morphology Not Reportable 01/12/22 04:30 Dimorphic RBCs Not Reportable 01/12/22 04:30 Polychromasia Not Reportable 01/12/22 04:30 Hypochromasia Not Reportable 01/12/22 04:30 Poikilocytosis Not Reportable 01/12/22 04:30 Anisocytosis 1+ 01/12/22 04:30 Microcytosis Not Reportable 01/12/22 04:30 Macrocytosis Not Reportable 01/12/22 04:30 Spherocytes Not Reportable 01/12/22 04:30 Pappenheimer Bodies Not Reportable 01/12/22 04:30 Sickle Cells Not Reportable 01/12/22 04:30 Target Cells Not Reportable 01/12/22 04:30 Tear Drop Cells Not Reportable 01/12/22 04:30 Ovalocytes Not Reportable 01/12/22 04:30 Helmet Cells Not Reportable 01/12/22 04:30 [place] Bodies Not Reportable 01/12/22 04:30 [place] Rings Not Reportable 01/12/22 04:30 [place] Cells Not Reportable 01/12/22 04:30 Bite Cells Not Reportable 01/12/22 04:30 Crenated Cell Not Reportable 01/12/22 04:30 Elliptocytes Not Reportable 01/12/22 04:30 Acanthocytes (Spur) Not Reportable 01/12/22 04:30 Rouleaux Not Reportable 01/12/22 04:30 Hemoglobin C Crystals Not Reportable 01/12/22 04:30 Schistocytes Not Reportable 01/12/22 04:30 Malaria parasites Not Reportable 01/12/22 04:30 Jigar Bodies Not Reportable 01/12/22 04:30 Hem Pathologist Commnt No 01/12/22 04:30 Sodium 158 mmol/L (137-145) H 01/12/22 04:30 Potassium 5.4 mmol/L (3.6-5.0) H 01/12/22 04:30 Chloride 117.4 mmol/L (98-107) H 01/12/22 04:30 Carbon Dioxide 22 mmol/L (22-30) 01/12/22 04:30 Anion Gap 24 mmol/L 01/12/22 04:30 BUN 109 mg/dL (9-20) H 01/12/22 04:30 Creatinine 5.9 mg/dL (0.8-1.3) H 01/12/22 04:30 Estimated GFR 10 ml/min 01/12/22 04:30 BUN/Creatinine Ratio 18 % 01/12/22 04:30 Glucose 280 mg/dL (75-100) H 01/12/22 04:30 POC Glucose 239 mg/dL (70-105) H 01/12/22 05:28 Lactic Acid 2.70 mmol/L (0.7-2.0) H* 01/11/22 11:41 Calcium 8.3 mg/dL (8.4-10.2) L 01/12/22 04:30 Phosphorus 9.30 mg/dL (2.5-4.5) H 01/12/22 04:30 Total Bilirubin 0.60 mg/dL (0.1-1.2) 01/11/22 03:08 Direct Bilirubin 0.3 mg/dL (0-0.2) H 01/11/22 03:08 Indirect Bilirubin 0.3 mg/dL 01/11/22 03:08 AST 45 units/L (5-40) H 01/11/22 03:08 ALT 29 units/L (7-56) 01/11/22 03:08 Alkaline Phosphatase 180 units/L (35-129) H 01/11/22 03:08 Total Creatine Kinase 370 units/L (55-170) H 01/11/22 12:21 Total Protein 7.3 g/dL (6.3-8.2) 01/11/22 03:08 Albumin 2.3 g/dL (3.9-5) L 01/11/22 03:08 Albumin/Globulin Ratio 0.5 % 01/11/22 03:08 Urine Color Yellow (Yellow) 01/11/22 07:14 Urine Turbidity Turbid (Clear) 01/11/22 07:14 Urine pH 5.0 (5.0-7.0) 01/11/22 07:14 Ur Specific [place] 1.030 (1.003-1.030) 01/11/22 07:14 Urine Protein 100 mg/dl mg/dL (Negative) 01/11/22 07:14 Urine Glucose (UA) Negative mg/dL (Negative) 01/11/22 07:14 Urine Ketones Negative mg/dL (Negative) 01/11/22 07:14 Urine Blood Large (Negative) A 01/11/22 07:14 Urine Nitrite Negative (Negative) 01/11/22 07:14 Ur Reducing Substances Not Reportable 01/11/22 07:14 Urine Bilirubin Negative (Negative) 01/11/22 07:14 Urine Ictotest Not Reportable 01/11/22 07:14 Urine Urobilinogen < 2.0 mg/dL (<2.0) 01/11/22 07:14 Ur Leukocyte Esterase Large (Negative) 01/11/22 07:14 Urine WBC (Auto) > 182.0 /HPF (0.0-6.0) H 01/11/22 07:14 Urine RBC (Auto) > 182.0 /HPF (0.0-6.0) 01/11/22 07:14 Urine Bacteria (Auto) 4+ /HPF (Negative) 01/11/22 07:14 Urine WBC Clumps 3+ /HPF 01/11/22 07:14 Microbiology: Microbiology 01/11/22 07:14 Urine,[place] Urine Culture - Preliminary Gram Negative Nadir 01/11/22 03:08 Peripheral/Venous Blood Culture - Preliminary NO GROWTH AFTER 24 HOURS 01/11/22 03:08 Peripheral/Venous Blood Culture - Preliminary NO GROWTH AFTER 24 HOURS [place]/IV: Voiding Method Indwelling Catheter Active Medications - Current Medications Current Medications: Generic Name Dose Route Start Last Admin Trade Name Freq PRN Reason Stop Dose Admin Acetaminophen 650 mg 01/11/22 05:40 Acetaminophen 325 Mg Tab PO Q4H PRN Pain MILD(1-3)/Fever >100.5/ROGERS Albuterol 2.5 mg 01/11/22 05:40 Albuterol 2.5 Mg/3 Ml Nebu IH Q3HRT PRN Shortness Of Breath Aspirin 81 mg 01/11/22 10:00 01/12/22 11:11 Aspirin Ec 81 Mg Tab PO 81 mg QDAY ALEXSANDRA Administration Atorvastatin Calcium 80 mg 01/11/22 22:00 01/11/22 21:16 Atorvastatin 40 Mg Tab PO Not Given QHS ALEXSANDRA Carvedilol 3.125 mg 01/11/22 10:00 01/12/22 11:12 Carvedilol 3.125 Mg Tab PO Not Given BID ALEXSANDRA Clopidogrel Bisulfate 75 mg 01/11/22 10:00 01/12/22 11:11 Clopidogrel 75 Mg Tab PO 75 mg QDAY ALEXSANDRA Administration Dextrose 50 ml 01/11/22 05:40 Dextrose 50% In Water (25gm) 50 Ml Syringe IV Q30MIN PRN Hypoglycemia Protocol Dextrose 25 ml 01/12/22 10:00 Dextrose 50% In Water (25gm) 50 Ml Syringe IV 01/13/22 10:01 Q30MIN ALEXSANDRA Protocol Famotidine 20 mg 01/11/22 10:00 01/12/22 11:11 Famotidine 20 Mg/2 Ml Inj IV 20 mg DAILY ALEXSANDRA Administration Hydralazine HCl 10 mg 01/11/22 05:54 Hydralazine 20 Mg/1 Ml Inj IV Q6H PRN Blood Pressure Sodium Chloride 1,000 mls @ 125 mls/hr 01/11/22 06:00 01/12/22 08:13 Nacl 0.45% 1000 Ml IV 125 mls/hr DIRECT ALEXSANDRA Administration Ceftriaxone Sodium 2 gm in 100 mls @ 200 mls/hr 01/11/22 06:00 01/12/22 05:53 Rocephin/Ns 2 Gm/100 Ml IV 200 mls/hr Q24H ALEXSANDRA Administration Protocol Insulin Glargine 10 units 01/12/22 22:00 Insulin Glargine 100 Units/Ml SUB-Q QHS ALEXSANDRA Insulin Human Lispro 0 unit 01/11/22 06:00 01/12/22 11:16 Insulin Lispro 100 Unit/Ml SUB-Q 3 unit Q6HR ALEXSANDRA Administration Protocol Midodrine 10 mg 01/12/22 09:03 01/12/22 11:17 Midodrine 10 Mg Tab PO 10 mg TID@0800,1200,1600 ALEXSANDRA Administration Ondansetron HCl 4 mg 01/11/22 05:40 Ondansetron 4 Mg/2 Ml Inj IV Q8H PRN Nausea And Vomiting Sodium Bicarbonate 325 mg 01/11/22 05:43 Sodium Bicarbonate 325 Mg Tab FEEDTUBE PRN PRN For Clogged Feeding Tube Sodium Chloride 10 ml 01/11/22 10:00 01/12/22 11:11 Sodium Chloride 0.9% 10 Ml Flush Syringe IV 10 ml BID ALEXSANDRA Administration Sodium Chloride 10 ml 01/11/22 05:40 Sodium Chloride 0.9% 10 Ml Flush Syringe IV PRN PRN LINE FLUSH Tamsulosin HCl 0.4 mg 01/11/22 10:00 01/12/22 11:11 Tamsulosin 0.4 Mg Cap PO 0.4 mg QDAY ALEXSANDRA Administration <LEIA MANDUJANO - Last Filed: 01/15/22 12:15> Assessment and Plan Assessment and plan: I saw and evaluated the patient. Discussed with the nurse practitioner and agree with their findings and plan as documented in this note. Hospitalist Physical - Constitutional Vitals: Temp Pulse Resp BP Pulse Ox 98.6 F 68 20 98/54 99 01/15/22 04:06 01/15/22 04:06 01/15/22 07:35 01/15/22 07:35 01/15/22 10:00 Results - Labs CBC & Chem 7: 01/15/22 04:33 01/14/22 23:21 Labs: Laboratory Last Values WBC 14.8 K/mm3 (4.5-11.0) H 01/15/22 04:33 RBC 3.87 M/mm3 (3.65-5.03) 01/15/22 04:33 Hgb 10.5 gm/dl (11.8-15.2) L 01/15/22 04:33 Hct 32.0 % (35.5-45.6) L 01/15/22 04:33 MCV 83 fl (84-94) L 01/15/22 04:33 MCH 27 pg (28-32) L 01/15/22 04:33 MCHC 33 % (32-34) 01/15/22 04:33 RDW 24.5 % (13.2-15.2) H 01/15/22 04:33 Plt Count 126 K/mm3 (140-440) L D 01/15/22 04:33 Add Manual Diff Complete 01/15/22 04:33 Total Counted 100 01/15/22 04:33 Seg Neutrophils % Building Insulation Supervisor 01/14/22 05:47 Seg Neuts % (Manual) 95.0 % (40.0-70.0) H 01/15/22 04:33 Band Neutrophils % 1.0 % 01/15/22 04:33 Lymphocytes % (Manual) 0 % (13.4-35.0) L 01/15/22 04:33 Reactive Lymphs % (Man) 0 % 01/15/22 04:33 Monocytes % (Manual) 3.0 % (0.0-7.3) 01/15/22 04:33 Eosinophils % (Manual) 1.0 % (0.0-4.3) 01/15/22 04:33 Basophils % (Manual) 0 % (0.0-1.8) 01/15/22 04:33 Metamyelocytes % 0 % 01/15/22 04:33 Myelocytes % 0 % 01/15/22 04:33 Promyelocytes % 0 % 01/15/22 04:33 Blast Cells % 0 % 01/15/22 04:33 Nucleated RBC % Not Reportable 01/15/22 04:33 Seg Neutrophils # Man 14.1 K/mm3 (1.8-7.7) H 01/15/22 04:33 Band Neutrophils # 0.1 K/mm3 01/15/22 04:33 Lymphocytes # (Manual) 0.0 K/mm3 (1.2-5.4) L 01/15/22 04:33 Abs React Lymphs (Man) 0.0 K/mm3 01/15/22 04:33 Monocytes # (Manual) 0.4 K/mm3 (0.0-0.8) 01/15/22 04:33 Eosinophils # (Manual) 0.1 K/mm3 (0.0-0.4) 01/15/22 04:33 Basophils # (Manual) 0.0 K/mm3 (0.0-0.1) 01/15/22 04:33 Metamyelocytes # 0.0 K/mm3 01/15/22 04:33 Myelocytes # 0.0 K/mm3 01/15/22 04:33 Promyelocytes # 0.0 K/mm3 01/15/22 04:33 Blast Cells # 0.0 K/mm3 01/15/22 04:33 WBC Morphology Not Reportable 01/15/22 04:33 Hypersegmented Neuts Not Reportable 01/15/22 04:33 Hyposegmented Neuts Not Reportable 01/15/22 04:33 Hypogranular Neuts Not Reportable 01/15/22 04:33 Smudge Cells Not Reportable 01/15/22 04:33 Toxic Granulation Not Reportable 01/15/22 04:33 Toxic Vacuolation Not Reportable 01/15/22 04:33 Dohle Bodies Not Reportable 01/15/22 04:33 Pelger-Huet Anomaly Not Reportable 01/15/22 04:33 Sarah Rods Not Reportable 01/15/22 04:33 Platelet Estimate Consistent w auto 01/15/22 04:33 Clumped Platelets Not Reportable 01/15/22 04:33 Plt Clumps, EDTA Not Reportable 01/15/22 04:33 Large Platelets Not Reportable 01/15/22 04:33 Giant Platelets Not Reportable 01/15/22 04:33 Platelet Satelliting Not Reportable 01/15/22 04:33 Plt Morphology Comment Not Reportable 01/15/22 04:33 RBC Morphology Not Reportable 01/15/22 04:33 Dimorphic RBCs Not Reportable 01/15/22 04:33 Polychromasia Not Reportable 01/15/22 04:33 Hypochromasia Not Reportable 01/15/22 04:33 Poikilocytosis Not Reportable 01/15/22 04:33 Anisocytosis 2+ 01/15/22 04:33 Microcytosis Not Reportable 01/15/22 04:33 Macrocytosis Not Reportable 01/15/22 04:33 Spherocytes Not Reportable 01/15/22 04:33 Pappenheimer Bodies Not Reportable 01/15/22 04:33 Sickle Cells Not Reportable 01/15/22 04:33 Target Cells Not Reportable 01/15/22 04:33 Tear Drop Cells Not Reportable 01/15/22 04:33 Ovalocytes Not Reportable 01/15/22 04:33 Helmet Cells Not Reportable 01/15/22 04:33 [place] Bodies Not Reportable 01/15/22 04:33 [place] Rings Not Reportable 01/15/22 04:33 [place] Cells Not Reportable 01/15/22 04:33 Bite Cells Not Reportable 01/15/22 04:33 Crenated Cell Not Reportable 01/15/22 04:33 Elliptocytes Not Reportable 01/15/22 04:33 Acanthocytes (Spur) Not Reportable 01/15/22 04:33 Rouleaux Not Reportable 01/15/22 04:33 Hemoglobin C Crystals Not Reportable 01/15/22 04:33 Schistocytes Not Reportable 01/15/22 04:33 Malaria parasites Not Reportable 01/15/22 04:33 Jigar Bodies Not Reportable 01/15/22 04:33 Hem Pathologist Commnt No 01/15/22 04:33 Sodium 138 mmol/L (137-145) D 01/14/22 23:21 Potassium 3.9 mmol/L (3.6-5.0) 01/14/22 23:21 Chloride 101.1 mmol/L (98-107) 01/14/22 23:21 Carbon Dioxide 24 mmol/L (22-30) 01/14/22 23:21 Anion Gap 17 mmol/L 01/14/22 23:21 BUN 44 mg/dL (9-20) H 01/14/22 23:21 Creatinine 2.7 mg/dL (0.8-1.3) H 01/14/22 23:21 Estimated GFR 24 ml/min 01/14/22 23:21 BUN/Creatinine Ratio 16 % 01/14/22 23:21 Glucose 308 mg/dL (75-100) H 01/14/22 23:21 POC Glucose 168 mg/dL (70-105) H 01/15/22 11:44 Lactic Acid 1.70 mmol/L (0.7-2.0) 01/13/22 04:56 Calcium 7.4 mg/dL (8.4-10.2) L 01/14/22 23:21 Phosphorus 4.20 mg/dL (2.5-4.5) 01/15/22 04:33 Total Bilirubin 0.60 mg/dL (0.1-1.2) 01/11/22 03:08 Direct Bilirubin 0.3 mg/dL (0-0.2) H 01/11/22 03:08 Indirect Bilirubin 0.3 mg/dL 01/11/22 03:08 AST 45 units/L (5-40) H 01/11/22 03:08 ALT 29 units/L (7-56) 01/11/22 03:08 Alkaline Phosphatase 180 units/L (35-129) H 01/11/22 03:08 Total Creatine Kinase 370 units/L (55-170) H 01/11/22 12:21 Total Protein 7.3 g/dL (6.3-8.2) 01/11/22 03:08 Albumin 2.3 g/dL (3.9-5) L 01/11/22 03:08 Albumin/Globulin Ratio 0.5 % 01/11/22 03:08 Urine Color Claudia (Yellow) 01/12/22 11:44 Urine Turbidity Cloudy (Clear) 01/12/22 11:44 Urine pH 5.0 (5.0-7.0) 01/12/22 11:44 Ur Specific [place] 1.030 (1.003-1.030) 01/12/22 11:44 Urine Protein 30 mg/dl mg/dL (Negative) 01/12/22 11:44 Urine Glucose (UA) Negative mg/dL (Negative) 01/12/22 11:44 Urine Ketones Negative mg/dL (Negative) 01/12/22 11:44 Urine Blood Moderate (Negative) A 01/12/22 11:44 Urine Nitrite Negative (Negative) 01/12/22 11:44 Ur Reducing Substances Not Reportable 01/12/22 11:44 Urine Bilirubin Negative (Negative) 01/12/22 11:44 Urine Ictotest Not Reportable 01/12/22 11:44 Urine Urobilinogen 0.0 mg/dL (<2.0) 01/12/22 11:44 Ur Leukocyte Esterase Trace (Negative) 01/12/22 11:44 Urine WBC (Auto) > 182.0 /HPF (0.0-6.0) H 01/12/22 11:44 Urine RBC (Auto) 12.0 /HPF (0.0-6.0) 01/12/22 11:44 Urine Bacteria (Auto) 2+ /HPF (Negative) 01/12/22 11:44 Urine WBC Clumps 3+ /HPF 01/11/22 07:14 Urine Mucus Few /HPF 01/12/22 11:44 Urine Sodium 58 mmol/L 01/12/22 11:44 Nasal Screen MRSA (PCR) Positive (Negative) 01/12/22 Unknown Random Vancomycin 10.0 ug/mL (0-40.0) 01/14/22 05:47 Hepatitis A IgM Ab Non-reactive (NonReactive) 01/13/22 18:40 Hep Bs Antigen Non-reactive (Negative) 01/13/22 18:40 Hep B Core IgM Ab Non-reactive (NonReactive) 01/13/22 18:40 Hepatitis C Antibody Non-reactive (NonReactive) 01/13/22 18:40 Microbiology: Microbiology 01/11/22 03:08 Peripheral/Venous Blood Culture - Preliminary NO GROWTH AFTER 4 DAYS 01/11/22 03:08 Peripheral/Venous Blood Culture - Preliminary NO GROWTH AFTER 4 DAYS 01/11/22 07:14 Urine,[place] Urine Culture - Preliminary Enterobacter Cloacae Enterococcus Species [place]/IV: Voiding Method Indwelling Catheter Active Medications - Current Medications Current Medications: Generic Name Dose Route Start Last Admin Trade Name Freq PRN Reason Stop Dose Admin Acetaminophen 650 mg 01/11/22 05:40 01/14/22 22:00 Acetaminophen 325 Mg Tab PO 650 mg Q4H PRN Administration Pain MILD(1-3)/Fever >100.5/ROGERS Albuterol 2.5 mg 01/11/22 05:40 Albuterol 2.5 Mg/3 Ml Nebu IH Q3HRT PRN Shortness Of Breath Lipase/Protease/Amylase 1 each 01/12/22 15:24 Lipase 10,500/Protease 25,000/Amylase 43,750 (Units) Dr Mariee FEEDTUBE PRN PRN For Clogged Feeding Tube Aspirin 81 mg 01/13/22 11:00 01/15/22 11:23 Aspirin 81 Mg Tab Chew FEEDTUBE 81 mg QDAY ALEXSANDRA Administration Atorvastatin Calcium 80 mg 01/11/22 22:00 01/14/22 21:54 Atorvastatin 40 Mg Tab PO 80 mg QHS ALEXSANDRA Administration Clopidogrel Bisulfate 75 mg 01/11/22 10:00 01/15/22 11:29 Clopidogrel 75 Mg Tab PO 75 mg QDAY ALEXSANDRA Administration Dextrose 50 ml 01/11/22 05:40 Dextrose 50% In Water (25gm) 50 Ml Syringe IV Q30MIN PRN Hypoglycemia Protocol Famotidine 10 mg 01/13/22 11:00 01/15/22 11:23 Famotidine 10 Mg Tab FEEDTUBE 10 mg BID ALEXSANDRA Administration Hydralazine HCl 10 mg 01/11/22 05:54 Hydralazine 20 Mg/1 Ml Inj IV Q6H PRN Blood Pressure Cefepime HCl 1 gm in 100 mls @ 200 mls/hr 01/13/22 18:00 01/14/22 17:11 Cefepime/Ns 1 Gm/100 Ml IV 200 mls/hr QPM ALEXSANDRA Administration Protocol Sodium Chloride 100 mls @ 999 mls/hr 01/13/22 18:00 Nacl 0.9% IV ASHLEY PRN Hypotension Insulin Glargine 10 units 01/12/22 22:00 01/14/22 21:54 Insulin Glargine 100 Units/Ml SUB-Q 10 units QHS ALEXSANDRA Administration Insulin Human Lispro 0 unit 01/11/22 06:00 01/15/22 06:35 Insulin Lispro 100 Unit/Ml SUB-Q 6 unit Q6HR ALEXSANDRA Administration Protocol Midodrine 10 mg 01/12/22 09:03 01/15/22 11:22 Midodrine 10 Mg Tab PO 10 mg TID@0800,1200,1600 ALEXSANDRA Administration Ondansetron HCl 4 mg 01/11/22 05:40 Ondansetron 4 Mg/2 Ml Inj IV Q8H PRN Nausea And Vomiting Simple Syrup 15 ml 01/12/22 15:24 Simple Syrup 15 Ml FEEDTUBE PRN PRN Hypoglycemia Simple Syrup 30 ml 01/12/22 15:24 Simple Syrup 15 Ml FEEDTUBE PRN PRN Hypoglycemia Sodium Bicarbonate 325 mg 01/12/22 15:24 Sodium Bicarbonate 325 Mg Tab FEEDTUBE PRN PRN For Clogged Feeding Tube Sodium Chloride 10 ml 01/11/22 10:00 01/14/22 21:56 Sodium Chloride 0.9% 10 Ml Flush Syringe IV 10 ml BID ALEXSANDRA Administration Sodium Chloride 10 ml 01/11/22 05:40 Sodium Chloride 0.9% 10 Ml Flush Syringe IV PRN PRN LINE FLUSH Sodium Hypochlorite 1 applic 07/06/22 10:00 01/15/22 11:23 Sodium Hypochlorite, [place]'s 1/2 Strength (0.25%) 473 Ml Topical Soln TP 1 applicatio BID ALEXSANDRA Administration Tamsulosin HCl 0.4 mg 01/11/22 10:00 01/15/22 11:28 Tamsulosin 0.4 Mg Cap PO 0.4 mg QDAY ALEXSANDRA Administration Nutrition/Malnutrition Assess - Dietary Evaluation Nutrition/Malnutrition Findings: Nutrition Notes Start: 01/12/22 13:45 Freq: Status: Active Protocol: Document 01/14/22 15:59 JARON (Rec: 01/14/22 16:12 JARON [id number]) Nutrition Notes Initial or Follow up Brief Note Current Diagnosis Acute Kidney Injury,CKD(stage I-IV),Decubitus(Pressure Ulcer ),Diabetes,Hypertension, Respiratory Failure,Stroke Other Pertinent Diagnosis CHF, Metabolic Encephalopathy, SIRS. Current Diet TF-Nepro w/CARBSTEADY @ 45 ml/ hr (from L 01/14). Height 5 ft 10 in Weight 56.69 kg [place] Body Weight (kg) 75.45 BMI 17.9 Weight change and time frame No body weight changes reported in 2 days. Weight Status Underweight Subjective/Other Information RD consult for routine F/U on TF tolerance/continuation. TF continues as prescribed and well tolerated, according to Progress notes. Pt was on NPO due to debridement of sacral decubitus ulcer procedure on 01/14 am, then TF resumed. Pt has Nasal Cannula, O2 saturation @ 97%, according to Physical Assessment History notes. Percent of energy/protein needs met: Prescribed TF-Nepro w/ CARBSTEADY @ 45 ml/hr provides for energy/protein needs (1, 950 Kcal/88 g) during LOS, 93% Kcal; 100% AA. #1 Nutrition Diagnosis Swallowing difficulty Diagnosis Progress(for reassessment Continues documentation) Is patient on ventilator? No Is Patient Ambulatory and/or Out of Bed No REE-([facility]-confined to bed) 1635.336 Kcal/Kg value to use for calculation 37 Approximate Energy Requirements Using 2098 kcal/Kg Calculation Used for Recommendations Kcal/kg Additional Notes Protein: 0.8-1.2 g/Kg IBW; 60- 90 g/day. Fluids: 1 ml/Kcal, or as per MD. Nutrition Intervention Nutrition Support: Continue TF-Nepro w/CARBSTEADY @ 45 ml/hr. Flush: 200 ml water Q 4 hr, or as per MD. Kcal 1,950 Protein (gm) 88 Carbohydrates (gm) 174 Fat (gm) 104 Fluid (mL) 788 Fiber (gm) 14 % RDI: 93% Kcal; 100% AA. Goal #1 Provide at least 75% of energy /protein needs through Enteral Feeding during LOS. Goal #2 Adjust the dietary intervention to better serve Pt's needs and clinical conditions during LOS. Follow-Up By: 01/21/22 Additional Comments Continue monitoring TF tolerance and BM.
[2022-01-12] MEDS ORDERED: VANCOMYCIN PHARMACY TO DOSE IV SCH (15:00)
[2022-01-12] MEDS ORDERED: VANCOMYCIN 1,250 MG in SODIUM CHLORIDE 0.9% 250ML 250 ML IV ONE (15:00)
[2022-01-12] MEDS ORDERED: LIPASE 10,500/PROTEASE 25,000/AMYLASE 43,750 (UNITS) DR CAP FEEDTUBE PRN (15:24)
[2022-01-12] MEDS ORDERED: SODIUM BICARBONATE 325 MG TAB FEEDTUBE PRN (15:24)
[2022-01-12] MEDS ORDERED: SIMPLE SYRUP 15 ML FEEDTUBE PRN ×2 (15:24)
[2022-01-12 16:52] LABS: Calcium 8.4 mg/dL (8.4-10.2)
[2022-01-12 17:00] LABS: Bacteria,Urine 2+ /HPF (Negative); Mucus,Urine FEW /HPF
[2022-01-12 17:07] LABS: Color,Urine Amber (Yellow)
[2022-01-12 17:08] LABS: Bilirubin,Urine Negative (Negative)
[2022-01-12 17:09] LABS: Blood,Urine Moderate (Negative)
[2022-01-12 17:24] LABS: WBC,Urine > 182.0 /HPF (0.0-6.0)
[2022-01-12] MEDS: FREE WATER PO SCH ×2 (18:40→22:40)
[2022-01-12] MEDS: INSULIN GLARGINE 100 UNITS/ML SUB-Q SCH (22:40)
[2022-01-13 01:54] LABS: Calcium 8.2 mg/dL (8.4-10.2)
[2022-01-13] MEDS: FREE WATER PO SCH ×5 (02:14→17:58)
[2022-01-13] MEDS: SODIUM CHLORIDE 0.45% 1000 ML 1,000 ML IV SCH ×2 (02:14→10:37)
[2022-01-13 05:20] LABS: Hematocrit 35.5 % (35.5-45.6); Hemoglobin 10.9 gm/dl (11.8-15.2); Mean Corpuscular HGB Conc 31 % (32-34); Mean Corpuscular Volume 86 fl (84-94); Red Blood Count 4.11 M/mm3 (3.65-5.03)
[2022-01-13 05:23] LABS: Platelet Count 53 K/mm3 (140-440); Red Cell Distribution Width 24.9 % (13.2-15.2)
[2022-01-13 06:33] LABS: Band Neutrophils # (Manual) 1.1 K/mm3; Basophils % (Manual) 0 % (0.0-1.8); Eosinophils % (Manual) 0 % (0.0-4.3); Total Cells Counted 100
[2022-01-13 06:35] LABS: Anisocytosis 2+; Ovalocytes Few; Platelet Estimate Consistent w Auto
[2022-01-13] MEDS: cefTRIAXone/NS 2 GM/100 ML 2 GM/100 ML BAG IV SCH (06:48)
[2022-01-13] MEDS: INSULIN LISPRO 100 UNIT/ML SUB-Q SCH ×3 (07:29→21:01)
[2022-01-13] MEDS ORDERED: FAMOTIDINE 20 MG/2 ML INJ IV SCH (10:00)
[2022-01-13] MEDS: MIDODRINE 10 MG TAB PO SCH ×3 (10:38→17:00)
[2022-01-13] MEDS: CLOPIDOGREL 75 MG TAB PO SCH (10:38)
[2022-01-13] MEDS: TAMSULOSIN 0.4 MG CAP PO SCH (10:38)
[2022-01-13] MEDS: FAMOTIDINE 10 MG TAB FEEDTUBE SCH (10:41)
[2022-01-13] MEDS: ASPIRIN 81 MG TAB CHEW FEEDTUBE SCH (10:41)
--- NOTE | 2022-01-13 10:56 | Progress Note ---
Assessment and Plan Assessment: Acute metabolic encephalopathy MAURI (acute kidney injury) Hypertension Congestive heart failure Diabetes Hypernatremia SIRS (systemic inflammatory response syndrome Plan: Renal labs reviewed. Serum creatinine 5.9 today, yesterday's was 5.8, BUN level marlon to 114 today. Given worsening renal function and minimal urine output, recommending hemodialysis initiation, patient agreeable and consented to hemodialysis Patient being transferred to medical floor will consult IR for vasc cath placement Hemodialysis today after vasc cath is placed Change IVF to D5W@ 125 ml/hr for severe Hypernatremia Renal US was negative for obstruction Urine lytes reviewed, has active sediments. Obtain KAMILLA, ANCA, C3, C4, anti-GBM, Hepatitis panel, serum free light chains, SPEP BMP Q12H ordered Renally dose medications Strict I&O's daily Obtain daily weights Assess dialysis needs daily Monitor for renal recovery Plan of care reviewed by Dr. Ireland Subjective Date of service: 01/13/22 Principal diagnosis: MAURI Interval history: Patient seen lying in bed. Awake and alert. Dr. Conner's Hospitalist trainee at bedside present for conversation with patient regarding dialysis initiation. Patient gave thumbs up as sign showing he agreed and consented to hemodialysis. No next of kin in chart. Objective - Vital Signs Vital signs: Vital Signs - 12hr 01/12/22 01/12/22 01/13/22 23:00 23:30 00:00 Temperature 97.6 F Pulse Rate 77 79 77 Pulse Rate [ From Monitor] Respiratory 21 18 18 Rate Blood Pressure 101/48 96/43 108/66 O2 Sat by Pulse 100 98 100 Oximetry 01/13/22 01/13/22 01/13/22 00:15 00:30 01:00 Temperature Pulse Rate 80 81 94 H Pulse Rate [ From Monitor] Respiratory 16 19 Rate Blood Pressure 126/72 102/71 O2 Sat by Pulse 100 100 Oximetry 01/13/22 01/13/22 01/13/22 01:30 02:00 02:16 Temperature 97.6 F Pulse Rate 85 92 H Pulse Rate [ From Monitor] Respiratory 23 23 Rate Blood Pressure 103/53 90/55 O2 Sat by Pulse 100 Oximetry 01/13/22 01/13/22 01/13/22 02:30 03:00 03:30 Temperature Pulse Rate 92 H 91 H 92 H Pulse Rate [ From Monitor] Respiratory 17 20 20 Rate Blood Pressure 94/60 98/66 86/47 O2 Sat by Pulse 100 100 Oximetry 01/13/22 01/13/22 01/13/22 03:45 04:00 04:30 Temperature Pulse Rate 91 H 90 91 H Pulse Rate [ 90 From Monitor] Respiratory 19 20 Rate Blood Pressure 92/58 94/57 O2 Sat by Pulse 100 100 Oximetry 01/13/22 01/13/22 01/13/22 05:00 05:30 06:00 Temperature Pulse Rate 89 90 90 Pulse Rate [ From Monitor] Respiratory 17 19 20 Rate Blood Pressure 84/48 95/59 94/55 O2 Sat by Pulse 100 100 Oximetry 01/13/22 01/13/22 01/13/22 06:30 07:00 07:21 Temperature 97.8 F Pulse Rate 90 91 H Pulse Rate [ From Monitor] Respiratory 19 17 Rate Blood Pressure 95/60 95/50 O2 Sat by Pulse 100 100 Oximetry 01/13/22 07:30 Temperature Pulse Rate 89 Pulse Rate [ From Monitor] Respiratory 20 Rate Blood Pressure 96/63 O2 Sat by Pulse Oximetry - General Appearance General appearance: other (awake, no acute distress) EENT: ATNC Neck: no JVD, supple Respiratory: Present: Decreased Breath Sounds, Other Cardiology: S1S2 Gastrointestinal: normoactive bowel sounds Integumentary: warm and dry Neurologic: other (Awake anbd alert) Musculoskeletal: other (No edema) - Lab 01/13/22 04:56 01/13/22 00:04 Most recent lab results Calcium 8.2 mg/dL (8.4-10.2) L 01/13/22 00:04 Phosphorus 9.50 mg/dL (2.5-4.5) H 01/13/22 04:56 Urine Sodium 58 mmol/L 01/12/22 11:44 Medications & Allergies - Medications Allergies/Adverse Reactions: Allergies No Known Allergies Allergy (Verified 12/09/21 12:16) Home Medications: Home Medications Medication Instructions Recorded Confirmed Last Taken Type cephALEXin [Keflex] 500 mg PO Q6HR 7 Days #28 capsule 12/09/21 12/14/21 Unknown Rx Aspirin [[place] Aspirin EC] 81 mg PO QDAY 12/14/21 12/14/21 Unknown History Atorvastatin [Lipitor] 80 mg PO QHS 12/14/21 12/14/21 Unknown History Dapagliflozin Propanediol [Farxiga] 10 mg PO QDAY 12/14/21 12/14/21 Unknown History Insulin Detemir [Levemir VIAL] 25 unit SQ QHS 12/14/21 12/14/21 Unknown History Insulin Lispro [Admelog] 100 unit SQ ACHS 12/14/21 12/14/21 Unknown History Tamsulosin [Flomax] 0.4 mg PO QDAY 12/14/21 12/14/21 Unknown History carvediloL [Coreg] 3.125 mg PO BID 12/14/21 12/14/21 Unknown History Clopidogrel [Plavix] 75 mg PO QDAY tablet 12/27/21 Unknown Rx Sertraline [Zoloft] 100 mg PO QDAY #30 12/27/21 Unknown Rx Simple Syrup 15 ml FEEDTUBE PRN PRN oral.liqd 12/27/21 Unknown Rx Simple Syrup 30 ml FEEDTUBE PRN PRN oral.liqd 12/27/21 Unknown Rx Sodium Bicarbonate 325 mg FEEDTUBE PRN PRN #30 tablet 12/27/21 Unknown Rx Torsemide [Demadex] 20 mg PO QDAY #30 12/27/21 Unknown Rx Active Medications: Generic Name Dose Route Start Last Admin Trade Name Freq PRN Reason Stop Dose Admin Acetaminophen 650 mg 01/11/22 05:40 Acetaminophen 325 Mg Tab PO Q4H PRN Pain MILD(1-3)/Fever >100.5/ROGERS Albuterol 2.5 mg 01/11/22 05:40 Albuterol 2.5 Mg/3 Ml Nebu IH Q3HRT PRN Shortness Of Breath Lipase/Protease/Amylase 1 each 01/12/22 15:24 Lipase 10,500/Protease 25,000/Amylase 43,750 (Units) Dr Mariee FEEDTUBE PRN PRN For Clogged Feeding Tube Aspirin 81 mg 01/13/22 11:00 01/13/22 10:41 Aspirin 81 Mg Tab Chew FEEDTUBE 81 mg QDAY ALEXSANDRA Administration Atorvastatin Calcium 80 mg 01/11/22 22:00 01/12/22 22:41 Atorvastatin 40 Mg Tab PO 80 mg QHS ALEXSANDRA Administration Clopidogrel Bisulfate 75 mg 01/11/22 10:00 01/13/22 10:38 Clopidogrel 75 Mg Tab PO 75 mg QDAY ALEXSANDRA Administration Dextrose 50 ml 01/11/22 05:40 Dextrose 50% In Water (25gm) 50 Ml Syringe IV Q30MIN PRN Hypoglycemia Protocol Famotidine 10 mg 01/13/22 11:00 01/13/22 10:41 Famotidine 10 Mg Tab FEEDTUBE 10 mg BID ALEXSANDRA Administration Hydralazine HCl 10 mg 01/11/22 05:54 Hydralazine 20 Mg/1 Ml Inj IV Q6H PRN Blood Pressure Sodium Chloride 1,000 mls @ 125 mls/hr 01/11/22 06:00 01/13/22 10:37 Nacl 0.45% 1000 Ml IV 125 mls/hr DIRECT ALEXSANDRA Administration Ceftriaxone Sodium 1 gm in 50 mls @ 100 mls/hr 01/14/22 10:00 Rocephin/Ns 1 Gm/50 Ml IV Q24H [facility] Protocol Insulin Glargine 10 units 01/12/22 22:00 01/12/22 22:40 Insulin Glargine 100 Units/Ml SUB-Q 10 units QHS ALEXSANDRA Administration Insulin Human Lispro 0 unit 01/11/22 06:00 01/13/22 07:29 Insulin Lispro 100 Unit/Ml SUB-Q Not Given Q6HR [facility] Protocol Midodrine 10 mg 01/12/22 09:03 01/13/22 10:38 Midodrine 10 Mg Tab PO 10 mg TID@0800,1200,1600 ALEXSANDRA Administration Ondansetron HCl 4 mg 01/11/22 05:40 Ondansetron 4 Mg/2 Ml Inj IV Q8H PRN Nausea And Vomiting Simple Syrup 15 ml 01/12/22 15:24 Simple Syrup 15 Ml FEEDTUBE PRN PRN Hypoglycemia Simple Syrup 30 ml 01/12/22 15:24 Simple Syrup 15 Ml FEEDTUBE PRN PRN Hypoglycemia Sodium Bicarbonate 325 mg 01/12/22 15:24 Sodium Bicarbonate 325 Mg Tab FEEDTUBE PRN PRN For Clogged Feeding Tube Sodium Chloride 10 ml 01/11/22 10:00 01/13/22 10:38 Sodium Chloride 0.9% 10 Ml Flush Syringe IV 10 ml BID ALEXSANDRA Administration Sodium Chloride 10 ml 01/11/22 05:40 Sodium Chloride 0.9% 10 Ml Flush Syringe IV PRN PRN LINE FLUSH Tamsulosin HCl 0.4 mg 01/11/22 10:00 01/13/22 10:38 Tamsulosin 0.4 Mg Cap PO 0.4 mg QDAY ALEXSANDRA Administration
--- NOTE | 2022-01-13 11:32 | Consultation ---
History of Present Illness - Reason for Consult Consult date: 01/13/22 sepsis Requesting physician: KELY MCINTOSH - History of Present Illness The patient is a 66-year-old male with hypertension, CHF, diabetes, prior CVA, status post PEG tube, indwelling Vallecillo catheter, halfway resident was admitted with altered mental status. Noted to be hypotensive and septic. Also sodium of 165 on admission. Chest x-ray without pneumonia. T-max 100.3 F. WBC 14.3 on admission which has been increasing, up to 21.3 today. Noted to have acute renal failure with creatinine greater than 5. Sacral decubitus ulcer with eschar. Admitted to [facility]. Poor historian. Review of Systems: Unable to obtain due to AMS Past History Past Medical History: diabetes (PEG, Indwelling Cath), heart failure, hypertension, stroke Past Surgical History: Other (Gastro tube) Social history: no significant social history Family history: hypertension Medications and Allergies Allergies Allergy/AdvReac Type Severity Reaction Status Date / Time No Known Allergies Allergy Verified 12/09/21 12:16 Home Medications Medication Instructions Recorded Confirmed Last Taken Type cephALEXin [Keflex] 500 mg PO Q6HR 7 Days #28 capsule 12/09/21 12/14/21 Unknown Rx Aspirin [[place] Aspirin EC] 81 mg PO QDAY 12/14/21 12/14/21 Unknown History Atorvastatin [Lipitor] 80 mg PO QHS 12/14/21 12/14/21 Unknown History Dapagliflozin Propanediol [Farxiga] 10 mg PO QDAY 12/14/21 12/14/21 Unknown History Insulin Detemir [Levemir VIAL] 25 unit SQ QHS 12/14/21 12/14/21 Unknown History Insulin Lispro [Admelog] 100 unit SQ ACHS 12/14/21 12/14/21 Unknown History Tamsulosin [Flomax] 0.4 mg PO QDAY 12/14/21 12/14/21 Unknown History carvediloL [Coreg] 3.125 mg PO BID 12/14/21 12/14/21 Unknown History Clopidogrel [Plavix] 75 mg PO QDAY tablet 12/27/21 Unknown Rx Sertraline [Zoloft] 100 mg PO QDAY #30 12/27/21 Unknown Rx Simple Syrup 15 ml FEEDTUBE PRN PRN oral.liqd 12/27/21 Unknown Rx Simple Syrup 30 ml FEEDTUBE PRN PRN oral.liqd 12/27/21 Unknown Rx Sodium Bicarbonate 325 mg FEEDTUBE PRN PRN #30 tablet 12/27/21 Unknown Rx Torsemide [Demadex] 20 mg PO QDAY #30 12/27/21 Unknown Rx Active Meds: Active Medications Acetaminophen (Acetaminophen 325 Mg Tab) 650 mg PO Q4H PRN PRN Reason: Pain MILD(1-3)/Fever >100.5/ROGERS Albuterol (Albuterol 2.5 Mg/3 Ml Nebu) 2.5 mg IH Q3HRT PRN PRN Reason: Shortness Of Breath Lipase/Protease/Amylase (Lipase 10,500/Protease 25,000/Amylase 43,750 (Units) Dr Mariee) 1 each FEEDTUBE PRN PRN PRN Reason: For Clogged Feeding Tube Aspirin (Aspirin 81 Mg Tab Chew) 81 mg FEEDTUBE QDAY [facility] Last Admin: 01/13/22 10:41 Dose: 81 mg Atorvastatin Calcium (Atorvastatin 40 Mg Tab) 80 mg PO QHS [facility] Last Admin: 01/12/22 22:41 Dose: 80 mg Clopidogrel Bisulfate (Clopidogrel 75 Mg Tab) 75 mg PO QDAY [facility] Last Admin: 01/13/22 10:38 Dose: 75 mg Dextrose (Dextrose 50% In Water (25gm) 50 Ml Syringe) 50 ml IV Q30MIN PRN; Protocol PRN Reason: Hypoglycemia Famotidine (Famotidine 10 Mg Tab) 10 mg FEEDTUBE BID [facility] Last Admin: 01/13/22 10:41 Dose: 10 mg Hydralazine HCl (Hydralazine 20 Mg/1 Ml Inj) 10 mg IV Q6H PRN PRN Reason: Blood Pressure Ceftriaxone Sodium (Rocephin/Ns 1 Gm/50 Ml) 1 gm in 50 mls @ 100 mls/hr IV Q24H ALEXSANDRA; Protocol Dextrose (D5w) 1,000 mls @ 125 mls/hr IV DIRECT ALEXSANDRA Insulin Glargine (Insulin Glargine 100 Units/Ml) 10 units SUB-Q QHS [facility] Last Admin: 01/12/22 22:40 Dose: 10 units Insulin Human Lispro (Insulin Lispro 100 Unit/Ml) 0 unit SUB-Q Q6HR ALEXSANDRA; Protocol Last Admin: 01/13/22 07:29 Dose: Not Given Midodrine (Midodrine 10 Mg Tab) 10 mg PO TID@0800,1200,1600 [facility] Last Admin: 01/13/22 10:38 Dose: 10 mg Ondansetron HCl (Ondansetron 4 Mg/2 Ml Inj) 4 mg IV Q8H PRN PRN Reason: Nausea And Vomiting Simple Syrup (Simple Syrup 15 Ml) 15 ml FEEDTUBE PRN PRN PRN Reason: Hypoglycemia Simple Syrup (Simple Syrup 15 Ml) 30 ml FEEDTUBE PRN PRN PRN Reason: Hypoglycemia Sodium Bicarbonate (Sodium Bicarbonate 325 Mg Tab) 325 mg FEEDTUBE PRN PRN PRN Reason: For Clogged Feeding Tube Sodium Chloride (Sodium Chloride 0.9% 10 Ml Flush Syringe) 10 ml IV BID [facility] Last Admin: 01/13/22 10:38 Dose: 10 ml Sodium Chloride (Sodium Chloride 0.9% 10 Ml Flush Syringe) 10 ml IV PRN PRN PRN Reason: LINE FLUSH Tamsulosin HCl (Tamsulosin 0.4 Mg Cap) 0.4 mg PO QDAY [facility] Last Admin: 01/13/22 10:38 Dose: 0.4 mg Physical Examination - Physical Exam Narrative exam: Physical Exam: Constitutional: awake, confused Head, Ears, Nose: Normocephalic, atraumatic. External ears, nose normal Eyes: Conjunctivae/corneas clear. No icterus. No ptosis. Neck: Supple, no meningeal signs Oral: Unable to examine Cardiovascular: S1, S2 + Respiratory: Good air entry, clear to auscultation bilaterally GI: Soft, non-tender; bowel sounds normal. No peritoneal signs. PEG tube +. Vallecillo + Musculoskeletal: Sacral decubitus ulcer Skin: No rash or abscess Hem/Lymphatic: No palpable cervical or supraclavicular nodes. No lymphangitis Psych: Calm, no agitation Neurological: awake, confused, speech not clear, not oriented - Constitutional Vitals: Vital Signs Temp Pulse Resp BP Pulse Ox 97.8 F 89 20 96/63 100 01/13/22 07:21 01/13/22 07:30 01/13/22 07:30 01/13/22 07:30 01/13/22 07:00 Temperature -Last 24 Hours Temperature 97.8 F Temperature 97.6 F Temperature 97.6 F Results - Labs CBC & Chem 7: 01/13/22 04:56 01/13/22 00:04 Labs: Abnormal lab results 01/12/22 01/12/22 01/13/22 Range/Units 11:44 Unknown 00:04 WBC (4.5-11.0) K/mm3 Hgb (11.8-15.2) gm/dl MCH (28-32) pg MCHC (32-34) % RDW (13.2-15.2) % Plt Count (140-440) K/mm3 Seg Neuts % (Manual) (40.0-70.0) % Lymphocytes % (Manual) (13.4-35.0) % Seg Neutrophils # Man (1.8-7.7) K/mm3 Lymphocytes # (Manual) (1.2-5.4) K/mm3 Sodium 162 H* 160 H (137-145) mmol/L Chloride 122.6 H 119.0 H (98-107) mmol/L Carbon Dioxide 21 L 21 L (22-30) mmol/L BUN 111 H 114 H (9-20) mg/dL Creatinine 5.8 H 5.9 H (0.8-1.3) mg/dL Glucose 132 H 229 H (75-100) mg/dL POC Glucose (70-105) mg/dL Calcium 8.2 L (8.4-10.2) mg/dL Phosphorus (2.5-4.5) mg/dL Urine Blood Moderate A (Negative) Urine WBC (Auto) > 182.0 H (0.0-6.0) /HPF 01/13/22 01/13/22 01/13/22 Range/Units 04:56 04:56 07:17 WBC 21.3 H (4.5-11.0) K/mm3 Hgb 10.9 L (11.8-15.2) gm/dl MCH 27 L (28-32) pg MCHC 31 L (32-34) % RDW 24.9 H (13.2-15.2) % Plt Count 53 L (140-440) K/mm3 Seg Neuts % (Manual) 92.0 H (40.0-70.0) % Lymphocytes % (Manual) 0 L (13.4-35.0) % Seg Neutrophils # Man 19.6 H (1.8-7.7) K/mm3 Lymphocytes # (Manual) 0.0 L (1.2-5.4) K/mm3 Sodium (137-145) mmol/L Chloride (98-107) mmol/L Carbon Dioxide (22-30) mmol/L BUN (9-20) mg/dL Creatinine (0.8-1.3) mg/dL Glucose (75-100) mg/dL POC Glucose 124 H (70-105) mg/dL Calcium (8.4-10.2) mg/dL Phosphorus 9.50 H (2.5-4.5) mg/dL Urine Blood (Negative) Urine WBC (Auto) (0.0-6.0) /HPF - Imaging and Cardiology Chest x-ray: report reviewed, image reviewed (no pneumonia) Assessment and Plan Cultures: MRSA nasal PCR: Positive 01/11/2022 blood culture: No growth 01/11/2022 urine culture: Gram-negative laurie A/P: 66-year-old male with hypertension, CHF, diabetes, prior CVA, status post PEG t ube, indwelling Vallecillo catheter, halfway resident: #Severe sepsis: Multifactorial, likely secondary to UTI, infected sacral decubitus ulcer. UA showed significant pyuria. Blood cultures with no growth. #UTI: indwelling Vallecillo. UA with pyuria, culture with GNR. #Necrotic sacral decubitus ulcer with eschar #Acute renal failure: renally adjust abx. #Prior CVA, bedbound status with indwelling Vallecillo catheter, PEG tube #Acute encephalopathy: Admitted with severe hypernatremia. #Acute thrombocytopenia: probably from sepsis. #Protein calorie malnutrition Recs: -Renally dosed IV cefepime, vancomycin -Follow-up cultures -Wound care and debridement as needed -Guarded prognosis Tara Ramos MD, FACP, [facility] O: [phone] F: [phone] C: [phone]
[2022-01-13] MEDS ORDERED: DEXTROSE 5% IN WATER 1,000 ML IV SCH (12:00)
--- NOTE | 2022-01-13 12:13 | Consultation ---
History of Present Illness Consult date: 01/13/22 - History of present illness History of present illness: The patient is a 66-year-old male with hypertension, CHF, diabetes, prior CVA, status post PEG tube, indwelling Vallecillo catheter, prison resident was admitted with altered mental status. Noted to be hypotensive and septic. Also sodium of 165 on admission. Chest x-ray without pneumonia. T-max 100.3 F. WBC 14.3 on admission which has been increasing, up to 21.3 today. Noted to have acute renal failure with creatinine greater than 5. Sacral decubitus ulcer with eschar. Admitted to [facility]. Poor historian. On my exam eschar is present on the cacral decub. Debridement will likely leave sacral bone exposed. Some of the elevated wbc maybe related to an osteomyelitis. Will check CT of abdo and pelvis today. NPO at midnight and schedule debridement in am. Past History Past Medical History: diabetes (PEG, Indwelling Cath), heart failure, hypertension, stroke Past Surgical History: Other (Gastro tube) Social history: no significant social history Family history: hypertension Medications and Allergies Allergies Allergy/AdvReac Type Severity Reaction Status Date / Time No Known Allergies Allergy Verified 12/09/21 12:16 Home Medications Medication Instructions Recorded Confirmed Last Taken Type cephALEXin [Keflex] 500 mg PO Q6HR 7 Days #28 capsule 12/09/21 12/14/21 Unknown Rx Aspirin [[place] Aspirin EC] 81 mg PO QDAY 12/14/21 12/14/21 Unknown History Atorvastatin [Lipitor] 80 mg PO QHS 12/14/21 12/14/21 Unknown History Dapagliflozin Propanediol [Farxiga] 10 mg PO QDAY 12/14/21 12/14/21 Unknown History Insulin Detemir [Levemir VIAL] 25 unit SQ QHS 12/14/21 12/14/21 Unknown History Insulin Lispro [Admelog] 100 unit SQ ACHS 12/14/21 12/14/21 Unknown History Tamsulosin [Flomax] 0.4 mg PO QDAY 12/14/21 12/14/21 Unknown History carvediloL [Coreg] 3.125 mg PO BID 12/14/21 12/14/21 Unknown History Clopidogrel [Plavix] 75 mg PO QDAY tablet 12/27/21 Unknown Rx Sertraline [Zoloft] 100 mg PO QDAY #30 12/27/21 Unknown Rx Simple Syrup 15 ml FEEDTUBE PRN PRN oral.liqd 12/27/21 Unknown Rx Simple Syrup 30 ml FEEDTUBE PRN PRN oral.liqd 12/27/21 Unknown Rx Sodium Bicarbonate 325 mg FEEDTUBE PRN PRN #30 tablet 12/27/21 Unknown Rx Torsemide [Demadex] 20 mg PO QDAY #30 12/27/21 Unknown Rx Active Meds: Active Medications Acetaminophen (Acetaminophen 325 Mg Tab) 650 mg PO Q4H PRN PRN Reason: Pain MILD(1-3)/Fever >100.5/ROGERS Albuterol (Albuterol 2.5 Mg/3 Ml Nebu) 2.5 mg IH Q3HRT PRN PRN Reason: Shortness Of Breath Lipase/Protease/Amylase (Lipase 10,500/Protease 25,000/Amylase 43,750 (Units) Dr Mariee) 1 each FEEDTUBE PRN PRN PRN Reason: For Clogged Feeding Tube Aspirin (Aspirin 81 Mg Tab Chew) 81 mg FEEDTUBE QDAY [facility] Last Admin: 01/13/22 10:41 Dose: 81 mg Atorvastatin Calcium (Atorvastatin 40 Mg Tab) 80 mg PO QHS [facility] Last Admin: 01/12/22 22:41 Dose: 80 mg Clopidogrel Bisulfate (Clopidogrel 75 Mg Tab) 75 mg PO QDAY [facility] Last Admin: 01/13/22 10:38 Dose: 75 mg Dextrose (Dextrose 50% In Water (25gm) 50 Ml Syringe) 50 ml IV Q30MIN PRN; Protocol PRN Reason: Hypoglycemia Famotidine (Famotidine 10 Mg Tab) 10 mg FEEDTUBE BID [facility] Last Admin: 01/13/22 10:41 Dose: 10 mg Hydralazine HCl (Hydralazine 20 Mg/1 Ml Inj) 10 mg IV Q6H PRN PRN Reason: Blood Pressure Dextrose (D5w) 1,000 mls @ 125 mls/hr IV DIRECT ALEXSANDRA Cefepime HCl (Cefepime/Ns 1 Gm/100 Ml) 1 gm in 100 mls @ 200 mls/hr IV QPM [facility]; Protocol Insulin Glargine (Insulin Glargine 100 Units/Ml) 10 units SUB-Q QHS [facility] Last Admin: 01/12/22 22:40 Dose: 10 units Insulin Human Lispro (Insulin Lispro 100 Unit/Ml) 0 unit SUB-Q Q6HR [facility]; Protocol Last Admin: 01/13/22 07:29 Dose: Not Given Midodrine (Midodrine 10 Mg Tab) 10 mg PO TID@0800,1200,1600 [facility] Last Admin: 01/13/22 10:38 Dose: 10 mg Ondansetron HCl (Ondansetron 4 Mg/2 Ml Inj) 4 mg IV Q8H PRN PRN Reason: Nausea And Vomiting Simple Syrup (Simple Syrup 15 Ml) 15 ml FEEDTUBE PRN PRN PRN Reason: Hypoglycemia Simple Syrup (Simple Syrup 15 Ml) 30 ml FEEDTUBE PRN PRN PRN Reason: Hypoglycemia Sodium Bicarbonate (Sodium Bicarbonate 325 Mg Tab) 325 mg FEEDTUBE PRN PRN PRN Reason: For Clogged Feeding Tube Sodium Chloride (Sodium Chloride 0.9% 10 Ml Flush Syringe) 10 ml IV BID [facility] Last Admin: 01/13/22 10:38 Dose: 10 ml Sodium Chloride (Sodium Chloride 0.9% 10 Ml Flush Syringe) 10 ml IV PRN PRN PRN Reason: LINE FLUSH Tamsulosin HCl (Tamsulosin 0.4 Mg Cap) 0.4 mg PO QDAY [facility] Last Admin: 01/13/22 10:38 Dose: 0.4 mg Exam Vital Signs Temp Pulse Resp BP Pulse Ox 97 F L 104 H 20 86/57 99 01/11/22 02:09 01/11/22 02:09 01/11/22 02:09 01/11/22 02:09 01/11/22 02:09 - General physical appearance Positive: other (Patient is slow to respond to verbal stimulus orientation questionable) - Neck Positive: no masses, no bruits, trachea midline - Respiratory Positive: normal expansion - Cardiovascular Rhythm: regular - Extremities Extremities: No edema - Abdomen Abdomen: Present: soft. Absent: tender - Integumentary other (6 x 10 cm area with irregular margins in the sacrum with dark eschar. Depth of decubitus not determinable at this time because of the eschar. Center of the eschar is over the sacrum bony prominences are palpable through it.) Results - Labs 01/13/22 04:56 01/13/22 00:04 Abnormal lab results 07/10/3101/12/22 01/13/22 Range/Units 11:44 Unknown 00:04 WBC (4.5-11.0) K/mm3 Hgb (11.8-15.2) gm/dl MCH (28-32) pg MCHC (32-34) % RDW (13.2-15.2) % Plt Count (140-440) K/mm3 Seg Neuts % (Manual) (40.0-70.0) % Lymphocytes % (Manual) (13.4-35.0) % Seg Neutrophils # Man (1.8-7.7) K/mm3 Lymphocytes # (Manual) (1.2-5.4) K/mm3 Sodium 162 H* 160 H (137-145) mmol/L Chloride 122.6 H 119.0 H (98-107) mmol/L Carbon Dioxide 21 L 21 L (22-30) mmol/L BUN 111 H 114 H (9-20) mg/dL Creatinine 5.8 H 5.9 H (0.8-1.3) mg/dL Glucose 132 H 229 H (75-100) mg/dL POC Glucose (70-105) mg/dL Calcium 8.2 L (8.4-10.2) mg/dL Phosphorus (2.5-4.5) mg/dL Urine Blood Moderate A (Negative) Urine WBC (Auto) > 182.0 H (0.0-6.0) /HPF 01/13/22 01/13/22 01/13/22 Range/Units 04:56 04:56 07:17 WBC 21.3 H (4.5-11.0) K/mm3 Hgb 10.9 L (11.8-15.2) gm/dl MCH 27 L (28-32) pg MCHC 31 L (32-34) % RDW 24.9 H (13.2-15.2) % Plt Count 53 L (140-440) K/mm3 Seg Neuts % (Manual) 92.0 H (40.0-70.0) % Lymphocytes % (Manual) 0 L (13.4-35.0) % Seg Neutrophils # Man 19.6 H (1.8-7.7) K/mm3 Lymphocytes # (Manual) 0.0 L (1.2-5.4) K/mm3 Sodium (137-145) mmol/L Chloride (98-107) mmol/L Carbon Dioxide (22-30) mmol/L BUN (9-20) mg/dL Creatinine (0.8-1.3) mg/dL Glucose (75-100) mg/dL POC Glucose 124 H (70-105) mg/dL Calcium (8.4-10.2) mg/dL Phosphorus 9.50 H (2.5-4.5) mg/dL Urine Blood (Negative) Urine WBC (Auto) (0.0-6.0) /HPF Diabetes panel 01/12/22 01/13/22 Range/Units Unknown 00:04 Sodium 162 H* 160 H (137-145) mmol/L Potassium 4.9 4.3 (3.6-5.0) mmol/L Chloride 122.6 H 119.0 H (98-107) mmol/L Carbon Dioxide 21 L 21 L (22-30) mmol/L BUN 111 H 114 H (9-20) mg/dL Creatinine 5.8 H 5.9 H (0.8-1.3) mg/dL Glucose 132 H 229 H (75-100) mg/dL Calcium 8.4 8.2 L (8.4-10.2) mg/dL Calcium panel 01/12/22 01/13/22 01/13/22 Range/Units Unknown 00:04 04:56 Calcium 8.4 8.2 L (8.4-10.2) mg/dL Phosphorus 9.50 H (2.5-4.5) mg/dL Pituitary panel 01/12/22 01/13/22 Range/Units Unknown 00:04 Sodium 162 H* 160 H (137-145) mmol/L Potassium 4.9 4.3 (3.6-5.0) mmol/L Chloride 122.6 H 119.0 H (98-107) mmol/L Carbon Dioxide 21 L 21 L (22-30) mmol/L BUN 111 H 114 H (9-20) mg/dL Creatinine 5.8 H 5.9 H (0.8-1.3) mg/dL Glucose 132 H 229 H (75-100) mg/dL Calcium 8.4 8.2 L (8.4-10.2) mg/dL Adrenal panel 01/12/22 01/13/22 Range/Units Unknown 00:04 Sodium 162 H* 160 H (137-145) mmol/L Potassium 4.9 4.3 (3.6-5.0) mmol/L Chloride 122.6 H 119.0 H (98-107) mmol/L Carbon Dioxide 21 L 21 L (22-30) mmol/L BUN 111 H 114 H (9-20) mg/dL Creatinine 5.8 H 5.9 H (0.8-1.3) mg/dL Glucose 132 H 229 H (75-100) mg/dL Calcium 8.4 8.2 L (8.4-10.2) mg/dL Assessment and Plan On my exam eschar is present on the cacral decub. Debridement will likely leave sacral bone exposed. Some of the elevated wbc maybe related to an osteomyelitis. Will check CT of abdo and pelvis today. NPO at midnight and schedule debridement in am.
[2022-01-13] MEDS ORDERED: fentaNYL 100 MCG/2 ML INJ ONE (13:47)
[2022-01-13] MEDS ORDERED: HEPARIN/NS 5000 UNIT/500ML 500 ML IR ONE (13:47)
[2022-01-13] MEDS ORDERED: LIDOCAINE 2%/EPINEPHRINE 1:200,000 VIAL (20 ML) INFILTRATI ONE (13:47)
[2022-01-13] MEDS ORDERED: MIDAZOLAM 2 MG/2 ML INJ ONE (13:47)
[2022-01-13] MEDS ORDERED: HEPARIN 10,000 UNITS/10 ML VIAL ONE (13:47)
[2022-01-13] MEDS ORDERED: ceFAZolin/Water 2 GM/20 ML 2 GM/20 ML SYRINGE IV ONE (13:48)
[2022-01-13] MEDS ORDERED: SODIUM CHLORIDE 0.9% 250ML 250 ML ONE (13:50)
--- NOTE | 2022-01-13 15:39 | Operative Report ---
Operative Report Operative Report: EXAM: 1. Ultrasound-guided puncture of the right internal jugular vein 2. Fluoroscopic-guided placement of a right internal jugular nontunneled noncuffed hemodialysis catheter. DATE: 01/13/2022 INDICATION: Acute renal failure requiring hemodialysis. MEDICATIONS: Please see nursing report for full details. DEVICES: 15 cm triple lumen hemodialysis catheter GREEN END WORKER: OLGA BARRY MD CONTRAST: None PROCEDURE: The risks, benefits, and alternatives were discussed and informed consent was obtained. The patient was transported to the angiography suite in satisfactory/stable condition and was transported onto the angiography table. The patient's right internal jugular vein was assessed with ultrasound and determined to be patent prior to procedure. The patient was prepped and draped in a sterile fashion. The puncture site was anesthetized. The right internal jugular vein was patent on ultrasound. Under sonographic guidance, the right internal jugular vein was punctured with a 21-gauge micropuncture needle and a 0.018 inch wire was advanced through the needle. Needle was exchanged for transitional dilator. The inner dilator and wire was removed and a 0.035 inch wire was advanced through the transitional dilator into the inferior vena cava. Over the 0.035 inch wire, serial dilatation was performed. The catheter was advanced over the wire and positioned centrally under fluoroscopic guidance. 2-0 Ethilon suture was used to secure the catheter. The catheter was charged with heparin 1000 units/mL of space and the dialysis lumens with saline flush in the central lumen with cleave attached. Sterile dressing and Biopatch applied. The patient was transferred from the angiography suite back to the floor in stable condition. FINDINGS: 1. Excellent flow was obtained through the dialysis catheter with 20 mL syringes. 2. The catheter tip is in the right atrium. IMPRESSION: 1. Successful sonographically and fluoroscopically guided placement of a right internal jugular nontunneled noncuffed hemodialysis catheter.
--- NOTE | 2022-01-13 15:39 | Event Note ---
Date: 01/13/22 Request for Vas-Cath for nephrology. Risk, benefits, alternatives discussed with patient, Vas-Cath placed for nephrology.
--- NOTE | 2022-01-13 15:49 | Cat Scan Report ---
CT ABDOMEN AND PELVIS WITHOUT CONTRAST INDICATION / CLINICAL INFORMATION: sacral decubitus and sepsis. TECHNIQUE: Axial CT images were obtained through the abdomen and pelvis without IV contrast. All CT scans at this location are performed using CT dose reduction for ALARA by means of automated exposure control. COMPARISON: CT of the chest dated 12/24/2021 FINDINGS: LOWER CHEST: Bibasilar atelectasis with redemonstrated patchy opacities in the right middle and left lower lobes. This does not appear significantly changed compared to 12/24/2021. AORTA / ARTERIES: Mild atherosclerotic calcification without acute abnormality. IVC / VEINS: No significant abnormality. LYMPH NODES: No significant adenopathy. COLON: No significant abnormality. APPENDIX: Not visualized. STOMACH / SMALL BOWEL: There is a gastrostomy tube terminating in the gastric lumen. The stomach and small bowel are otherwise without significant abnormality. PERITONEUM: Trace free fluid within the pelvis. No free air. No fluid collection. LIVER: No significant abnormality. GALLBLADDER: No significant abnormality. BILE DUCTS: No significant abnormality. PANCREAS: Fatty atrophy. SPLEEN: No significant abnormality. ADRENALS: No significant abnormality. RIGHT KIDNEY / URETER: No significant abnormality. LEFT KIDNEY / URETER: No significant abnormality. URINARY BLADDER: There is a Vallecillo catheter within the urinary bladder. REPRODUCTIVE ORGANS: No significant abnormality. SKELETAL SYSTEM: Patient is status post post surgical change to the bilateral proximal femurs. There is scattered degeneration. ADDITIONAL FINDINGS: None, specifically no CT findings of decubitus ulcer. IMPRESSION: 1. No CT findings of the decubitus ulcer. 2. Redemonstrated findings within the lung bases, not significant change from 12/24/2021. Otherwise no CT findings to explain sepsis Signer Name: Jerry Stoll DO Signed: 01/13/2022 3:44 PM Workstation Name: [id number]
[2022-01-13] MEDS: CEFEPIME/NS 1 GM/100 ML 1 GM/100 ML BAG IV SCH (17:00)
--- NOTE | 2022-01-13 17:21 | Progress Note ---
Assessment and Plan Assessment and plan: This is a 66-year-old male with known past medical history of hypertension, CVA, CHF, DM, dysphagia s/p PEGtube placement admitted for sepsis and MAURI Hospital Course to Date: 01/12: Patient remains encephalopathic but more awake, following simple commands. Still hypotensive this am, probable sepsis. Febrile overnight with worsening leukocytosis this am. Cultures are pending. Continue IVF hydration and empiric IV abx. Multiple wounds, including unstageable sacral decub and MRSA PCR positive. IV Vanco was also initiated, renal dose per pharmacy. ID consulted. Midodrine also added TID. General surgery and wound care was also consulted for wounds eval and treatment. Worsening renal function with hypernatremia and hyperkalemia also noted, continue IVF hydration per nephro. Worsening thrombocytopenia also noted, no s/s of any active bleeding. H&H stable. Hold AC for now, HIT panel ordered. Lantus qhs added for hyperglycemia, continue BG and SSI Q6hrs 01/13: Patient tolerating tube feeds via PEG, unsure why the patient who had a PEG got so dehydrated at the facility, it appears he was tolerating some PO and as a result PEG was not in use at the facility. He is for debridement tomorrow, will continue free water flushes-150CC Q6 Considering he is on HD, will reassess and stop tomorrow if improved, Keep NPO after Midnight Continue abx therapy, Mental status improving some Discharge planning when stable Assessment and Plan #Acute Metabolic Encephalopathy - Multifactorial: probably due to azotemia vs hypernatremia, vs infectious process - on Continous IVF hydration and empiric IV abx - Mentation with mild improvement, following simple commands - Possible CT head tomorrow if no significant improvement in mentation - Frequent reorientation - Avoid sedatives agents - Maintenance of sleep-wake cycle #Hypotension 2/2 #Sepsis Vs hypovolemia #H/o Congestive Heart Failure(CHF) - Presented with tachycardia and hypotension - Patient remains hypotension this am, was febrile overnight and worsen leukoc ytosis this am - 12/14/21 Ech reviewed EF 45-50%, patient appear hypovolemic and dry - Continue IVF hydration per Nephro - Hold home antihypertensive agents - Midodrine added - Continue rehydration with cont. IVF - Continue blood pressure monitor per protocol - Maintain MAP above 65 - Strict intake and output and daily weight #Acute Kidney Injury(MAURI) most likely ATN #Hypernatremia #Hyperkalemia - probably due to hypotension/hypovelemia - Per record Scr. was 1.2 from last admit on 12/2021 - Scr. as high as 5.9, BUN 111 - X1 dose of kayexalate, FWF for hypernatremia - Nephrology on consult, appreciated recommendation - Urine lytes and renal US pending - Strict intake and output - Avoid nephrotoxic medications; Renally dose medications - Vallecillo in place, oliguric this am - Continue IVF hydration per nephro - Monitor and replace electrolytes as needed #Severe Sepsis- multifactorial #Acute cystitis #Sacral Decubitis Ulcer #Leukocytosis #Lactic Acidosis - Presented with tachycardia and hypotension - Patient remains hypotension this am, was febrile overnight and worsen leukocytosis this am - Cultures pending, MRSA PCR positive - With multiple wounds, including malodourous, unstageable sacral decubitis. - On Empiric IV Abx- Rocephin, IV Vanco added, renally dose per pharmacy - ID consulted - Continue to F/U on cultures - General Surgery consulted for possible debridement, wound care eval and treat - Wound care also consulted #Dysphagia s/p PEGtube Placement - Nutrition consulted - Initiated enteral nutrition #Thrombocytopenia - Presented with low plt - Plt count worsen this am - no s/s of any active bleeding - Will hold AC- heparin SubQ for now - H&H stable - HIT panel ordered #Type 2 Diabetes with Hyperglycemia - Continue BG and SSI Q6hrs - Lantus added qHs - While critically ill target blood glucose of 140-180 #GI/DVT Prophylaxis - PPI- Pepcid - SCDs to bilateral lower extremities while in bed The high probability of a clinically significant, sudden or life threatening deterioration of the [multiple] system(s) required my full and direct attention, intervention and personal management. The aggregate critical care time was [60] minutes. This time is in addition to time spent performing reported procedures but includes the following: [x] Data Review and interpretation [x] Patient assessment and monitoring of vital signs [x] Documentation [x] Medication orders and management Disposition Plan: IMCU Total Time Spent with Patient (Minutes): 60 History Interval history: Patient seen and examined, mental status fluctuating but mostly more lucid than before he remains on 3 liters of oxygen. Hospitalist Physical - Physical exam Narrative exam: General appearance: Present: no acute distress, cachectic - EENT Eyes: Present: PERRL ENT: hearing intact - Neck Neck: Present: normal ROM - Respiratory Respiratory effort: normal Respiratory: bilateral: diminished - Cardiovascular Rhythm: regular Heart Sounds: Present: S1 & S2 - Extremities Extremities: no ischemia, pulses intact, pulses symmetrical Extremity abnormal: edema - Peripheral Assessment Generalized Edema Type: Non-pitting Edema Degree: 1+ Capillary Refill: < 3 seconds Skin Temperature: Warm Peripheral Pulses: within normal limits - Abdominal General gastrointestinal: soft, non-distended, normal bowel sounds, PEG site noted - Integumentary Integumentary: Present: warm, erythema (With multiple wounds. Unstageable Sacral decubitis Ulcer) - Psychiatric Psychiatric: appropriate mood/affect, - Neurologic Neurologic: moves all extremities, other (AAOX2 but still with some confusion, follow simple commands) - Allied Health Allied health notes reviewed: nursing, case management - Constitutional Vitals: Temp Pulse Resp BP Pulse Ox 97.5 F L 80 22 107/61 98 01/13/22 11:00 01/13/22 13:30 01/13/22 13:30 01/13/22 13:30 01/13/22 13:30 General appearance: Present: no acute distress, cachectic Results - Labs CBC & Chem 7: 01/13/22 04:56 01/13/22 00:04 Labs: Laboratory Last Values WBC 21.3 K/mm3 (4.5-11.0) H 01/13/22 04:56 RBC 4.11 M/mm3 (3.65-5.03) 01/13/22 04:56 Hgb 10.9 gm/dl (11.8-15.2) L 01/13/22 04:56 Hct 35.5 % (35.5-45.6) 01/13/22 04:56 MCV 86 fl (84-94) 01/13/22 04:56 MCH 27 pg (28-32) L 01/13/22 04:56 MCHC 31 % (32-34) L 01/13/22 04:56 RDW 24.9 % (13.2-15.2) H 01/13/22 04:56 Plt Count 53 K/mm3 (140-440) L 01/13/22 04:56 Add Manual Diff Complete 01/13/22 04:56 Total Counted 100 01/13/22 04:56 Seg Neuts % (Manual) 92.0 % (40.0-70.0) H 01/13/22 04:56 Band Neutrophils % 5.0 % 01/13/22 04:56 Lymphocytes % (Manual) 0 % (13.4-35.0) L 01/13/22 04:56 Reactive Lymphs % (Man) 1.0 % 01/13/22 04:56 Monocytes % (Manual) 2.0 % (0.0-7.3) 01/13/22 04:56 Eosinophils % (Manual) 0 % (0.0-4.3) 01/13/22 04:56 Basophils % (Manual) 0 % (0.0-1.8) 01/13/22 04:56 Metamyelocytes % 0 % 01/13/22 04:56 Myelocytes % 0 % 01/13/22 04:56 Promyelocytes % 0 % 01/13/22 04:56 Blast Cells % 0 % 01/13/22 04:56 Nucleated RBC % Not Reportable 01/13/22 04:56 Seg Neutrophils # Man 19.6 K/mm3 (1.8-7.7) H 01/13/22 04:56 Band Neutrophils # 1.1 K/mm3 01/13/22 04:56 Lymphocytes # (Manual) 0.0 K/mm3 (1.2-5.4) L 01/13/22 04:56 Abs React Lymphs (Man) 0.2 K/mm3 01/13/22 04:56 Monocytes # (Manual) 0.4 K/mm3 (0.0-0.8) 01/13/22 04:56 Eosinophils # (Manual) 0.0 K/mm3 (0.0-0.4) 01/13/22 04:56 Basophils # (Manual) 0.0 K/mm3 (0.0-0.1) 01/13/22 04:56 Metamyelocytes # 0.0 K/mm3 01/13/22 04:56 Myelocytes # 0.0 K/mm3 01/13/22 04:56 Promyelocytes # 0.0 K/mm3 01/13/22 04:56 Blast Cells # 0.0 K/mm3 01/13/22 04:56 WBC Morphology Not Reportable 01/13/22 04:56 Hypersegmented Neuts Not Reportable 01/13/22 04:56 Hyposegmented Neuts Not Reportable 01/13/22 04:56 Hypogranular Neuts Not Reportable 01/13/22 04:56 Smudge Cells Not Reportable 01/13/22 04:56 Toxic Granulation Not Reportable 01/13/22 04:56 Toxic Vacuolation Not Reportable 01/13/22 04:56 Dohle Bodies Not Reportable 01/13/22 04:56 Pelger-Huet Anomaly Not Reportable 01/13/22 04:56 Sarah Rods Not Reportable 01/13/22 04:56 Platelet Estimate Consistent w auto 01/13/22 04:56 Clumped Platelets Not Reportable 01/13/22 04:56 Plt Clumps, EDTA Not Reportable 01/13/22 04:56 Large Platelets Not Reportable 01/13/22 04:56 Giant Platelets Not Reportable 01/13/22 04:56 Platelet Satelliting Not Reportable 01/13/22 04:56 Plt Morphology Comment Not Reportable 01/13/22 04:56 RBC Morphology Not Reportable 01/13/22 04:56 Dimorphic RBCs Not Reportable 01/13/22 04:56 Polychromasia Not Reportable 01/13/22 04:56 Hypochromasia Not Reportable 01/13/22 04:56 Poikilocytosis Not Reportable 01/13/22 04:56 Anisocytosis 2+ 01/13/22 04:56 Microcytosis Not Reportable 01/13/22 04:56 Macrocytosis Not Reportable 01/13/22 04:56 Spherocytes Not Reportable 01/13/22 04:56 Pappenheimer Bodies Not Reportable 01/13/22 04:56 Sickle Cells Not Reportable 01/13/22 04:56 Target Cells Not Reportable 01/13/22 04:56 Tear Drop Cells Not Reportable 01/13/22 04:56 Ovalocytes Few 01/13/22 04:56 Helmet Cells Not Reportable 01/13/22 04:56 [place] Bodies Not Reportable 01/13/22 04:56 [place] Rings Not Reportable 01/13/22 04:56 [place] Cells Not Reportable 01/13/22 04:56 Bite Cells Not Reportable 01/13/22 04:56 Crenated Cell Not Reportable 01/13/22 04:56 Elliptocytes Not Reportable 01/13/22 04:56 Acanthocytes (Spur) Not Reportable 01/13/22 04:56 Rouleaux Not Reportable 01/13/22 04:56 Hemoglobin C Crystals Not Reportable 01/13/22 04:56 Schistocytes Not Reportable 01/13/22 04:56 Malaria parasites Not Reportable 01/13/22 04:56 Jigar Bodies Not Reportable 01/13/22 04:56 Hem Pathologist Commnt No 01/13/22 04:56 Sodium 160 mmol/L (137-145) H 01/13/22 00:04 Potassium 4.3 mmol/L (3.6-5.0) 01/13/22 00:04 Chloride 119.0 mmol/L (98-107) H 01/13/22 00:04 Carbon Dioxide 21 mmol/L (22-30) L 01/13/22 00:04 Anion Gap 24 mmol/L 01/13/22 00:04 BUN 114 mg/dL (9-20) H 01/13/22 00:04 Creatinine 5.9 mg/dL (0.8-1.3) H 01/13/22 00:04 Estimated GFR 10 ml/min 01/13/22 00:04 BUN/Creatinine Ratio 19 % 01/13/22 00:04 Glucose 229 mg/dL (75-100) H 01/13/22 00:04 POC Glucose 238 mg/dL (70-105) H 01/13/22 16:55 Lactic Acid 1.70 mmol/L (0.7-2.0) 01/13/22 04:56 Calcium 8.2 mg/dL (8.4-10.2) L 01/13/22 00:04 Phosphorus 9.50 mg/dL (2.5-4.5) H 01/13/22 04:56 Total Bilirubin 0.60 mg/dL (0.1-1.2) 01/11/22 03:08 Direct Bilirubin 0.3 mg/dL (0-0.2) H 01/11/22 03:08 Indirect Bilirubin 0.3 mg/dL 01/11/22 03:08 AST 45 units/L (5-40) H 01/11/22 03:08 ALT 29 units/L (7-56) 01/11/22 03:08 Alkaline Phosphatase 180 units/L (35-129) H 01/11/22 03:08 Total Creatine Kinase 370 units/L (55-170) H 01/11/22 12:21 Total Protein 7.3 g/dL (6.3-8.2) 01/11/22 03:08 Albumin 2.3 g/dL (3.9-5) L 01/11/22 03:08 Albumin/Globulin Ratio 0.5 % 01/11/22 03:08 Urine Color Claudia (Yellow) 01/12/22 11:44 Urine Turbidity Cloudy (Clear) 01/12/22 11:44 Urine pH 5.0 (5.0-7.0) 01/12/22 11:44 Ur Specific [place] 1.030 (1.003-1.030) 01/12/22 11:44 Urine Protein 30 mg/dl mg/dL (Negative) 01/12/22 11:44 Urine Glucose (UA) Negative mg/dL (Negative) 01/12/22 11:44 Urine Ketones Negative mg/dL (Negative) 01/12/22 11:44 Urine Blood Moderate (Negative) A 01/12/22 11:44 Urine Nitrite Negative (Negative) 01/12/22 11:44 Ur Reducing Substances Not Reportable 01/12/22 11:44 Urine Bilirubin Negative (Negative) 01/12/22 11:44 Urine Ictotest Not Reportable 01/12/22 11:44 Urine Urobilinogen 0.0 mg/dL (<2.0) 01/12/22 11:44 Ur Leukocyte Esterase Trace (Negative) 01/12/22 11:44 Urine WBC (Auto) > 182.0 /HPF (0.0-6.0) H 01/12/22 11:44 Urine RBC (Auto) 12.0 /HPF (0.0-6.0) 01/12/22 11:44 Urine Bacteria (Auto) 2+ /HPF (Negative) 01/12/22 11:44 Urine WBC Clumps 3+ /HPF 01/11/22 07:14 Urine Mucus Few /HPF 01/12/22 11:44 Urine Sodium 58 mmol/L 01/12/22 11:44 Nasal Screen MRSA (PCR) Positive (Negative) 01/12/22 Unknown Microbiology: Microbiology 01/11/22 03:08 Peripheral/Venous Blood Culture - Preliminary NO GROWTH AFTER 48 HOURS 01/11/22 03:08 Peripheral/Venous Blood Culture - Preliminary NO GROWTH AFTER 48 HOURS Valle[place]illo/IV: Voiding Method Indwelling Catheter Active Medications - Current Medications Current Medications: Generic Name Dose Route Start Last Admin Trade Name Freq PRN Reason Stop Dose Admin Acetaminophen 650 mg 01/11/22 05:40 Acetaminophen 325 Mg Tab PO Q4H PRN Pain MILD(1-3)/Fever >100.5/ROGERS Albuterol 2.5 mg 01/11/22 05:40 Albuterol 2.5 Mg/3 Ml Nebu IH Q3HRT PRN Shortness Of Breath Lipase/Protease/Amylase 1 each 01/12/22 15:24 Lipase 10,500/Protease 25,000/Amylase 43,750 (Units) Dr Mariee FEEDTUBE PRN PRN For Clogged Feeding Tube Aspirin 81 mg 01/13/22 11:00 01/13/22 10:41 Aspirin 81 Mg Tab Chew FEEDTUBE 81 mg QDAY ALEXSANDRA Administration Atorvastatin Calcium 80 mg 01/11/22 22:00 01/12/22 22:41 Atorvastatin 40 Mg Tab PO 80 mg QHS ALEXSANDRA Administration Clopidogrel Bisulfate 75 mg 01/11/22 10:00 01/13/22 10:38 Clopidogrel 75 Mg Tab PO 75 mg QDAY ALEXSANDRA Administration Dextrose 50 ml 01/11/22 05:40 Dextrose 50% In Water (25gm) 50 Ml Syringe IV Q30MIN PRN Hypoglycemia Protocol Famotidine 10 mg 01/13/22 11:00 01/13/22 10:41 Famotidine 10 Mg Tab FEEDTUBE 10 mg BID ALEXSANDRA Administration Hydralazine HCl 10 mg 01/11/22 05:54 Hydralazine 20 Mg/1 Ml Inj IV Q6H PRN Blood Pressure Dextrose 1,000 mls @ 125 mls/hr 01/13/22 12:00 D5w IV DIRECT ALEXSANDRA Cefepime HCl 1 gm in 100 mls @ 200 mls/hr 01/13/22 18:00 Cefepime/Ns 1 Gm/100 Ml IV QPM ALEXSANDRA Protocol Sodium Chloride 100 mls @ 999 mls/hr 01/13/22 16:40 Nacl 0.9% IV ASHLEY PRN Hypotension Insulin Glargine 10 units 01/12/22 22:00 01/12/22 22:40 Insulin Glargine 100 Units/Ml SUB-Q 10 units QHS ALEXSANDRA Administration Insulin Human Lispro 0 unit 01/11/22 06:00 01/13/22 13:33 Insulin Lispro 100 Unit/Ml SUB-Q 4 unit Q6HR ALEXSANDRA Administration Protocol Midodrine 10 mg 01/12/22 09:03 01/13/22 13:33 Midodrine 10 Mg Tab PO 10 mg TID@0800,1200,1600 ALEXSANDRA Administration Ondansetron HCl 4 mg 01/11/22 05:40 Ondansetron 4 Mg/2 Ml Inj IV Q8H PRN Nausea And Vomiting Simple Syrup 15 ml 01/12/22 15:24 Simple Syrup 15 Ml FEEDTUBE PRN PRN Hypoglycemia Simple Syrup 30 ml 01/12/22 15:24 Simple Syrup 15 Ml FEEDTUBE PRN PRN Hypoglycemia Sodium Bicarbonate 325 mg 01/12/22 15:24 Sodium Bicarbonate 325 Mg Tab FEEDTUBE PRN PRN For Clogged Feeding Tube Sodium Chloride 10 ml 01/11/22 10:00 01/13/22 10:38 Sodium Chloride 0.9% 10 Ml Flush Syringe IV 10 ml BID LAEXSANDRA Administration Sodium Chloride 10 ml 01/11/22 05:40 Sodium Chloride 0.9% 10 Ml Flush Syringe IV PRN PRN LINE FLUSH Tamsulosin HCl 0.4 mg 01/11/22 10:00 01/13/22 10:38 Tamsulosin 0.4 Mg Cap PO 0.4 mg QDAY ALEXSANDRA Administration Nutrition/Malnutrition Assess - Dietary Evaluation Nutrition/Malnutrition Findings: Nutrition Notes Start: 01/12/22 13:45 Freq: Status: Active Protocol: Document 01/12/22 13:45 JARON (Rec: 01/12/22 13:51 JARON [id number]) Nutrition Notes Need for Assessment generated from: MD Order,disk operator,MST, Education Initial or Follow up Assessment Current Diagnosis Acute Kidney Injury,CKD(stage I-IV),Decubitus(Pressure Ulcer ),Diabetes,Hypertension, Respiratory Failure,Stroke Other Pertinent Diagnosis CHF, Metabolic Encephalopathy, SIRS. Current Diet NPO (since 01/11 05:41), TF- Nepro w/CARBSTEADY @ 45 ml/hr (from D 01/12). Labs/Tests 01/12: Na 158, K 5.4, Cl 117.4 , BUN 109, Crea 5.9, Glu 280, Ca 8.3, Phos 9.3. Pertinent Medications 01/12: Humalog 3U, others nutritionaslly unremarkable. Height 5 ft 10 in Weight 56.69 kg [place] Body Weight (kg) 75.45 BMI 17.9 Intake Prior to Admission Good Weight change and time frame Pt states being unsure if loss body weight [employer]. Last Vist (12/26/2021) Anthropometric data: Ht 5'7", Wt 82 Kg, BMI 28.3 Kg/m2. Weight Status Underweight Subjective/Other Information RD consult for Low BMI, nutrition edication, risk of malnutrition and difficulty chewing assessments, and write /manage TF. Pt is currently on NPO. Pt has Nasal Cannula, O2 saturation @ 98%, according to Physical Assessment History notes. Pt has missing teeth, according to Physical Assessment History notes. Pt presents swallowing difficulty, according to Physical Assessment History notes. Pt has a PEG tube in place, according to History & Physical notes. Pt presents several decubitus and scrath wounds, according to Physical Assessment History notes and Admission Documents . Last Vist (12/26/2021) Anthropometric data: Ht 5'7", Wt 82 Kg, BMI 28.3 Kg/m2. It is likely that todays anthropometric data are wrong; therefore, Pt is not at Low BMI, will reassess at F/U. Pt shows no signs of concern for risk of malnutrition at the time, according to Physical Assessment History notes. Pt needs total assistance with ADL activities, not a candidate for Nutrition Education. Percent of energy/protein needs met: Pt is currently on NPO. Prescribed TF-Nepro w/ CARBSTEADY @ 45 ml/hr provides for energy/protein needs (1, 950 Kcal/88 g) during LOS, 93% Kcal; 100% AA. Burn Absent Trauma Absent GI Symptoms None Difficulty In Swallowing Food Allergy No Skin Integrity/Comment Several decubitus & scratch wounds. Current % PO Other Minimum of two criteria No Fluid Accumulation N/A Reduced Holistic Health Practitioner Strength N/A (non-severe) Protein-Calorie Malnutrition N\\A #1 Nutrition Diagnosis Swallowing difficulty Etiology Most probably CVA, [place] Encephalopathy. As Evidenced by Signs and Symptoms Pt currently on NPO, PEG tube poa. Is patient on ventilator? No Is Patient Ambulatory and/or Out of Bed No REE-([facility]-confined to bed) [phone] Kcal/Kg value to use for calculation 37 Approximate Energy Requirements Using 2098 kcal/Kg Calculation Used for Recommendations Kcal/kg Additional Notes Protein: 0.8-1.2 g/Kg IBW; 60- 90 g/day. Fluids: 1 ml/Kcal, or as per MD. Nutrition Intervention Nutrition Support: Start TF-Nepro w/CARBSTEADY @ 45 ml/hr. Flush: 200 ml water Q 4 hr, or as per MD. Kcal 1,950 Protein (gm) 88 Carbohydrates (gm) 174 Fat (gm) 104 Fluid (mL) 788 Fiber (gm) 14 % RDI: 93% Kcal; 100% AA. Goal #1 Provide at least 75% of energy /protein needs through Enteral Feeding during LOS. Goal #2 Adjust the dietary intervention to better serve Pt's needs and clinical conditions during LOS. Follow-Up By: 01/14/22 Additional Comments Start monitoring TF tolerance and BM.
[2022-01-13] MEDS ORDERED: SODIUM CHLORIDE 0.9% 100 ML IV PRN (18:00)
[2022-01-13 19:51] LABS: Hepatitis B Surface Antigen Non-Reactive (Negative); Hepatitis C Virus Antibody Non-Reactive (NonReactive)
[2022-01-13 20:18] LABS: Calcium 7.6 mg/dL (8.4-10.2)
[2022-01-14] MEDS: FREE WATER PO SCH ×3 (00:54→11:18)
[2022-01-14] MEDS: FAMOTIDINE 10 MG TAB FEEDTUBE SCH ×3 (01:01→21:54)
[2022-01-14] MEDS: INSULIN GLARGINE 100 UNITS/ML SUB-Q SCH ×2 (01:23→21:54)
[2022-01-14] MEDS: INSULIN LISPRO 100 UNIT/ML SUB-Q SCH ×5 (01:24→22:44)
[2022-01-14 06:05] LABS: Hematocrit 35.1 % (35.5-45.6); Hemoglobin 11.2 gm/dl (11.8-15.2); Mean Corpuscular HGB Conc 32 % (32-34); Mean Corpuscular Volume 84 fl (84-94); Red Blood Count 4.17 M/mm3 (3.65-5.03)
[2022-01-14 06:13] LABS: Platelet Count 32 K/mm3 (140-440); Red Cell Distribution Width 23.7 % (13.2-15.2)
[2022-01-14] MEDS: ASPIRIN EC 81 MG TAB PO SCH (08:23)
[2022-01-14] MEDS ORDERED: MORPHINE 2 MG/1 ML INJ IV PRN (08:36)
[2022-01-14] MEDS: MIDODRINE 10 MG TAB PO SCH ×3 (08:50→17:11)
[2022-01-14] MEDS ORDERED: LIDOCAINE-MPF (1%) 10 MG/1 ML VIAL 5 ML INFILTRATI NR (09:00)
[2022-01-14] MEDS ORDERED: VANCOMYCIN 750 MG in SODIUM CHLORIDE 0.9% 250ML 250 ML IV SCH (10:00)
[2022-01-14] MEDS ORDERED: cefTRIAXone/NS 1 GM/50 ML 1 GM/50 ML BAG IV SCH (10:00)
[2022-01-14] MEDS: SODIUM HYPOCHLORITE, DAKIN'S 1/2 STRENGTH (0.25%) 473 ML TOPICAL SOLN TP SCH ×2 (10:17→21:54)
[2022-01-14] MEDS: TAMSULOSIN 0.4 MG CAP PO SCH (10:18)
[2022-01-14] MEDS: ASPIRIN 81 MG TAB CHEW FEEDTUBE SCH (10:18)
[2022-01-14] MEDS: CLOPIDOGREL 75 MG TAB PO SCH (10:18)
--- NOTE | 2022-01-14 10:42 | Progress Note ---
Assessment and Plan Acute metabolic encephalopathy MAURI (acute kidney injury) Hypertension Congestive heart failure Diabetes Hypernatremia SIRS (systemic inflammatory response syndrome Plan: Initiated on HD yesterday after Vascath. HD again today. s/p D5W for high Na. monitor Na. Renal US was negative for obstruction Urine lytes reviewed, has active sediments. Obtain KAMILLA, ANCA, C3, C4, anti-GBM, Hepatitis panel, serum free light chains, SPEP BMP Q12H ordered Renally dose medications Strict I&O's daily Obtain daily weights Assess dialysis needs daily Monitor for renal recovery Subjective Date of service: 01/14/22 Principal diagnosis: MAURI Interval history: Initiated on HD. NAD. Objective - Exam Narrative Exam: General appearance: other (awake, no acute distress) EENT: ATNC Neck: no JVD, supple Respiratory: Present: Decreased Breath Sounds, Other Cardiology: S1S2 Gastrointestinal: normoactive bowel sounds Integumentary: warm and dry Neurologic: other (Awake anbd alert) Musculoskeletal: other (No edema) - Vital Signs Vital signs: Vital Signs - 12hr 01/14/22 01/14/22 00:41 06:04 Temperature 98.8 F 97.6 F Pulse Rate 74 68 Respiratory 16 16 Rate Blood Pressure 112/63 111/54 [Left] O2 Sat by Pulse 100 100 Oximetry - Lab 01/14/22 05:47 01/13/22 18:40 Most recent lab results Calcium 7.6 mg/dL (8.4-10.2) L 01/13/22 18:40 Phosphorus 4.70 mg/dL (2.5-4.5) H D 01/14/22 05:47 Urine Sodium 58 mmol/L 01/12/22 11:44 Medications & Allergies - Medications Allergies/Adverse Reactions: Allergies No Known Allergies Allergy (Verified 12/09/21 12:16) Home Medications: Home Medications Medication Instructions Recorded Confirmed Last Taken Type cephALEXin [Keflex] 500 mg PO Q6HR 7 Days #28 capsule 12/09/21 01/14/22 Unknown Rx Aspirin [[place] Aspirin EC] 81 mg PO QDAY 12/14/21 01/14/22 Unknown History Atorvastatin [Lipitor] 80 mg PO QHS 12/14/21 01/14/22 Unknown History Dapagliflozin Propanediol [Farxiga] 10 mg PO QDAY 12/14/21 01/14/22 Unknown History Insulin Detemir [Levemir VIAL] 25 unit SQ QHS 12/14/21 01/14/22 Unknown History Insulin Lispro [Admelog] 100 unit SQ ACHS 12/14/21 01/14/22 Unknown History Tamsulosin [Flomax] 0.4 mg PO QDAY 12/14/21 01/14/22 Unknown History carvediloL [Coreg] 3.125 mg PO BID 12/14/21 01/14/22 Unknown History Clopidogrel [Plavix] 75 mg PO QDAY tablet 12/27/21 01/14/22 Unknown Rx Sertraline [Zoloft] 100 mg PO QDAY #30 12/27/21 01/14/22 Unknown Rx Simple Syrup 15 ml FEEDTUBE PRN PRN oral.liqd 12/27/21 01/14/22 Unknown Rx Simple Syrup 30 ml FEEDTUBE PRN PRN oral.liqd 12/27/21 01/14/22 Unknown Rx Sodium Bicarbonate 325 mg FEEDTUBE PRN PRN #30 tablet 12/27/21 01/14/22 Unknown Rx Torsemide [Demadex] 20 mg PO QDAY #30 12/27/21 01/14/22 Unknown Rx Active Medications: Generic Name Dose Route Start Last Admin Trade Name Freq PRN Reason Stop Dose Admin Acetaminophen 650 mg 01/11/22 05:40 Acetaminophen 325 Mg Tab PO Q4H PRN Pain MILD(1-3)/Fever >100.5/ROGERS Albuterol 2.5 mg 01/11/22 05:40 Albuterol 2.5 Mg/3 Ml Nebu IH Q3HRT PRN Shortness Of Breath Lipase/Protease/Amylase 1 each 01/12/22 15:24 Lipase 10,500/Protease 25,000/Amylase 43,750 (Units) Dr Mariee FEEDTUBE PRN PRN For Clogged Feeding Tube Aspirin 81 mg 01/13/22 11:00 01/14/22 10:18 Aspirin 81 Mg Tab Chew FEEDTUBE 81 mg QDAY ALEXSANDRA Administration Atorvastatin Calcium 80 mg 01/11/22 22:00 01/14/22 01:01 Atorvastatin 40 Mg Tab PO 80 mg QHS ALEXSANDRA Administration Clopidogrel Bisulfate 75 mg 01/11/22 10:00 01/14/22 10:18 Clopidogrel 75 Mg Tab PO 75 mg QDAY ALEXSANDRA Administration Dextrose 50 ml 01/11/22 05:40 Dextrose 50% In Water (25gm) 50 Ml Syringe IV Q30MIN PRN Hypoglycemia Protocol Famotidine 10 mg 01/13/22 11:00 01/14/22 10:18 Famotidine 10 Mg Tab FEEDTUBE 10 mg BID ALEXSANDRA Administration Hydralazine HCl 10 mg 01/11/22 05:54 Hydralazine 20 Mg/1 Ml Inj IV Q6H PRN Blood Pressure Dextrose 1,000 mls @ 125 mls/hr 01/13/22 12:00 D5w IV DIRECT [facility] Cefepime HCl 1 gm in 100 mls @ 200 mls/hr 01/13/22 18:00 01/13/22 17:00 Cefepime/Ns 1 Gm/100 Ml IV Not Given QPM [facility] Protocol Sodium Chloride 100 mls @ 999 mls/hr 01/13/22 18:00 Nacl 0.9% IV ASHLEY PRN Hypotension Vancomycin HCl 750 mg/ Sodium 265 mls @ 166.667 mls/hr 01/14/22 10:00 01/14/22 10:21 Chloride IV 01/14/22 14:00 166.667 mls/hr ONCE@1000 [facility] Administration Insulin Glargine 10 units 01/12/22 22:00 01/14/22 01:23 Insulin Glargine 100 Units/Ml SUB-Q 10 units QHS [facility] Administration Insulin Human Lispro 0 unit 01/11/22 06:00 01/14/22 06:22 Insulin Lispro 100 Unit/Ml SUB-Q Not Given Q6HR [facility] Protocol Midodrine 10 mg 01/12/22 09:03 01/14/22 08:50 Midodrine 10 Mg Tab PO Not Given TID@0800,1200,1600 [facility] Ondansetron HCl 4 mg 01/11/22 05:40 Ondansetron 4 Mg/2 Ml Inj IV Q8H PRN Nausea And Vomiting Simple Syrup 15 ml 01/12/22 15:24 Simple Syrup 15 Ml FEEDTUBE PRN PRN Hypoglycemia Simple Syrup 30 ml 01/12/22 15:24 Simple Syrup 15 Ml FEEDTUBE PRN PRN Hypoglycemia Sodium Bicarbonate 325 mg 01/12/22 15:24 Sodium Bicarbonate 325 Mg Tab FEEDTUBE PRN PRN For Clogged Feeding Tube Sodium Chloride 10 ml 01/11/22 10:00 01/14/22 10:21 Sodium Chloride 0.9% 10 Ml Flush Syringe IV 10 ml BID AELXSANDRA Administration Sodium Chloride 10 ml 01/11/22 05:40 Sodium Chloride 0.9% 10 Ml Flush Syringe IV PRN PRN LINE FLUSH Sodium Hypochlorite 1 applic 01/14/22 10:00 01/14/22 10:17 Sodium Hypochlorite, Dakin's 1/2 Strength (0.25%) 473 Ml Topical Soln TP 1 applicatio BID ALEXSANDRA Administration Tamsulosin HCl 0.4 mg 01/11/22 10:00 01/14/22 10:18 Tamsulosin 0.4 Mg Cap PO 0.4 mg QDAY ALEXSANDRA Administration
--- NOTE | 2022-01-14 11:12 | Post Operative Note ---
Pre-op diagnosis: Sacral decubitus Post-op diagnosis: same Findings: Sacral decubitus with overlying eschar Procedure: At the bedside on the floor timeouts and consents are obtained with patient in agreement. Patient was rolled to the left-sided down lateral cubitus position. The wound is then prepped with ChloraPrep and 3 minutes later draped in a sterile fashion. The center of the eschar is incised with a #15 scalpel. The same instrument is then used to remove the eschar and underlying tissue. Bleeding is minimal. Extent of debridement is down through the muscle fascia and to the sacral bone. Patient tolerated procedure well with minimal discomfort. He received 2 mg of IV morphine prior to beginning the procedure and remained awake throughout the procedure. The wound is dressed with wet-to-dry packing using half-strength Dakin solution. Anesthesia: none Manager Game: ROSALIND STEPHENS Estimated blood loss: minimal Pathology: list (Culture sensitivity and Gram stain of deep tissue from the wound) Specimen disposition: to lab Condition: stable Disposition: floor
[2022-01-14 11:48] LABS: Basophils % (Manual) 0 % (0.0-1.8); Eosinophils % (Manual) 0 % (0.0-4.3); Monocytes % (Manual) 0 % (0.0-7.3); Total Cells Counted 100
[2022-01-14 11:49] LABS: Anisocytosis 2+; Ovalocytes Few; Platelet Estimate Consistent w Auto; Spherocytes 1+
--- NOTE | 2022-01-14 13:02 | Progress Note ---
Assessment and Plan Cultures: MRSA nasal PCR: Positive 01/11/2022 blood culture: No growth 01/11/2022 urine culture: Gram-negative laurie A/P: 66-year-old male with hypertension, CHF, diabetes, prior CVA, status post PEG tu be, indwelling Vallecillo catheter, residential resident: #Severe sepsis: Multifactorial, likely secondary to UTI, infected sacral decubitus ulcer. UA showed significant pyuria. Blood cultures with no growth. #UTI: indwelling Vallecillo. UA with pyuria, culture with GNR. #Necrotic sacral decubitus ulcer with eschar. Underwent debridement by Dr. Small on 01/14/2022. CT without any evidence of osteomyelitis. #Acute renal failure: renally adjust abx. Planned for HD> #Prior CVA, bedbound status with indwelling Vallecillo catheter, PEG tube #Acute encephalopathy: Admitted with severe hypernatremia. #Acute thrombocytopenia: probably from sepsis. #Protein calorie malnutrition Recs: -continue renally dosed IV cefepime, vancomycin -Follow-up cultures -Wound care and offloading as possible -Guarded prognosis Tara Ramos MD, FACP, [facility] O: [phone] F: [phone] C: [phone] Subjective Date of service: 01/14/22 Principal diagnosis: MAURI Interval history: No fever. Lying in bed. Underwent dialysis cath placement. Underwent debridement of sacral wound. Poor historian. Objective - Exam Narrative Exam: Physical Exam: Constitutional: drowsy Head, Ears, Nose: Normocephalic, atraumatic. External ears, nose normal Eyes: Conjunctivae/corneas clear. No icterus. No ptosis. Neck: Supple, no meningeal signs Oral: Unable to examine Cardiovascular: S1, S2 + Respiratory: Good air entry, clear to auscultation bilaterally GI: Soft, non-tender; bowel sounds normal. No peritoneal signs. PEG tube +. Vallecillo + Musculoskeletal: Sacral decubitus ulcer with dressing Skin: No rash or abscess Hem/Lymphatic: No palpable cervical or supraclavicular nodes. No lymphangitis Psych: drowsy Neurological: drowsy - Constitutional Vitals: Vital Signs Temp Pulse Resp BP Pulse Ox 97.6 F 66 18 111/54 97 01/14/22 06:04 01/14/22 12:00 01/14/22 12:00 01/14/22 06:04 01/14/22 12:00 Temperature -Last 24 Hours Temperature 97.6 F Temperature 98.8 F Temperature 98.0 F Temperature 98.1 F - Labs CBC & Chem 7: 01/14/22 05:47 01/13/22 18:40 Labs: Abnormal lab results 01/13/22 01/13/22 01/14/22 Range/Units 16:55 18:40 01:17 WBC (4.5-11.0) K/mm3 Hgb (11.8-15.2) gm/dl Hct (35.5-45.6) % MCH (28-32) pg RDW (13.2-15.2) % Plt Count (140-440) K/mm3 Seg Neuts % (Manual) (40.0-70.0) % Lymphocytes % (Manual) (13.4-35.0) % Nucleated RBC % (0.0-0.9) % Seg Neutrophils # Man (1.8-7.7) K/mm3 Lymphocytes # (Manual) (1.2-5.4) K/mm3 Sodium 151 H D (137-145) mmol/L Potassium 3.4 L D (3.6-5.0) mmol/L Chloride 111.1 H (98-107) mmol/L Carbon Dioxide 20 L (22-30) mmol/L BUN 115 H (9-20) mg/dL Creatinine 5.4 H (0.8-1.3) mg/dL Glucose 273 H (75-100) mg/dL POC Glucose 238 H 200 H (70-105) mg/dL Calcium 7.6 L (8.4-10.2) mg/dL Phosphorus (2.5-4.5) mg/dL 01/14/22 01/14/22 01/14/22 Range/Units 05:47 05:47 06:12 WBC 17.0 H (4.5-11.0) K/mm3 Hgb 11.2 L (11.8-15.2) gm/dl Hct 35.1 L (35.5-45.6) % MCH 27 L (28-32) pg RDW 23.7 H (13.2-15.2) % Plt Count 32 L (140-440) K/mm3 Seg Neuts % (Manual) 99.0 H (40.0-70.0) % Lymphocytes % (Manual) 1.0 L (13.4-35.0) % Nucleated RBC % 1.0 H (0.0-0.9) % Seg Neutrophils # Man 16.8 H (1.8-7.7) K/mm3 Lymphocytes # (Manual) 0.2 L (1.2-5.4) K/mm3 Sodium (137-145) mmol/L Potassium (3.6-5.0) mmol/L Chloride (98-107) mmol/L Carbon Dioxide (22-30) mmol/L BUN (9-20) mg/dL Creatinine (0.8-1.3) mg/dL Glucose (75-100) mg/dL POC Glucose 220 H (70-105) mg/dL Calcium (8.4-10.2) mg/dL Phosphorus 4.70 H D (2.5-4.5) mg/dL 01/14/22 Range/Units 11:36 WBC (4.5-11.0) K/mm3 Hgb (11.8-15.2) gm/dl Hct (35.5-45.6) % MCH (28-32) pg RDW (13.2-15.2) % Plt Count (140-440) K/mm3 Seg Neuts % (Manual) (40.0-70.0) % Lymphocytes % (Manual) (13.4-35.0) % Nucleated RBC % (0.0-0.9) % Seg Neutrophils # Man (1.8-7.7) K/mm3 Lymphocytes # (Manual) (1.2-5.4) K/mm3 Sodium (137-145) mmol/L Potassium (3.6-5.0) mmol/L Chloride (98-107) mmol/L Carbon Dioxide (22-30) mmol/L BUN (9-20) mg/dL Creatinine (0.8-1.3) mg/dL Glucose (75-100) mg/dL POC Glucose 193 H (70-105) mg/dL Calcium (8.4-10.2) mg/dL Phosphorus (2.5-4.5) mg/dL
--- NOTE | 2022-01-14 16:11 | Progress Note ---
Assessment and Plan This is a 66-year-old male with known past medical history of hypertension, CVA, CHF, DM, dysphagia s/p PEGtube placement admitted for sepsis and MAURI Hospital Course to Date: 01/12: Patient remains encephalopathic but more awake, following simple commands. Still hypotensive this am, probable sepsis. Febrile overnight with worsening leukocytosis this am. Cultures are pending. Continue IVF hydration and empiric IV abx. Multiple wounds, including unstageable sacral decub and MRSA PCR positive. IV Vanco was also initiated, renal dose per pharmacy. ID consulted. Midodrine also added TID. General surgery and wound care was also consulted for wounds eval and treatment. Worsening renal function with hypernatremia and hyperkalemia also noted, continue IVF hydration per nephro. Worsening thrombocytopenia also noted, no s/s of any active bleeding. H&H stable. Hold AC for now, HIT panel ordered. Lantus qhs added for hyperglycemia, continue BG and SSI Q6hrs 01/13: Patient tolerating tube feeds via PEG, unsure why the patient who had a PEG got so dehydrated at the facility, it appears he was tolerating some PO and as a result PEG was not in use at the facility. He is for debridement tomorrow, will continue free water flushes-150CC Q6 Considering he is on HD, will reassess and stop tomorrow if improved, Keep NPO after Midnight Continue abx therapy, Mental status improving some Discharge planning when stable 01/14/ Na level improving, Cr stable after HD x2, cont iv fluid, follow renal recommendation, pending surgical eval for decubitus ulcer Assessment and Plan #Acute Metabolic Encephalopathy - Multifactorial: probably due to azotemia vs hypernatremia, vs infectious process - on Continous IVF hydration and empiric IV abx - Mentation with mild improvement, following simple commands - Possible CT head tomorrow if no significant improvement in mentation - Frequent reorientation - Avoid sedatives agents - Maintenance of sleep-wake cycle #Hypotension 2/2 #Sepsis Vs hypovolemia #H/o Congestive Heart Failure(CHF) - Presented with tachycardia and hypotension - Patient remains hypotension this am, was febrile overnight and worsen jono kocytosis this am - 12/14/21 Ech reviewed EF 45-50%, patient appear hypovolemic and dry - Continue IVF hydration per Nephro - Hold home antihypertensive agents - Midodrine added - Continue rehydration with cont. IVF - Continue blood pressure monitor per protocol - Maintain MAP above 65 - Strict intake and output and daily weight #Acute Kidney Injury(MAURI) most likely ATN #Hypernatremia #Hyperkalemia - probably due to hypotension/hypovelemia - Per record Scr. was 1.2 from last admit on 12/2021 - Scr. as high as 5.9, BUN 111 - X1 dose of kayexalate, FWF for hypernatremia - Nephrology on consult, appreciated recommendation - Urine lytes and renal US pending - Strict intake and output - Avoid nephrotoxic medications; Renally dose medications - Vallecillo in place, initiated on HD 01/14 #Severe Sepsis- multifactorial #Acute cystitis #Sacral Decubitis Ulcer #Leukocytosis #Lactic Acidosis - Presented with tachycardia and hypotension - Patient remains hypotension this am, was febrile overnight and worsen leukocytosis this am - Cultures pending, MRSA PCR positive - With multiple wounds, including malodourous, unstageable sacral decubitis. - On Empiric IV Abx- Rocephin, IV Vanco added, renally dose per pharmacy - ID consulted - Continue to F/U on cultures - General Surgery consulted for possible debridement, wound care eval and treat - Wound care also consulted #Dysphagia s/p PEGtube Placement - Nutrition consulted - Initiated enteral nutrition #Thrombocytopenia - Presented with low plt - Plt count worsen this am - no s/s of any active bleeding - Will hold AC- heparin SubQ for now - H&H stable - HIT panel ordered #Type 2 Diabetes with Hyperglycemia - Continue BG and SSI Q6hrs - Lantus added qHs - While critically ill target blood glucose of 140-180 #GI/DVT Prophylaxis - PPI- Pepcid - SCDs to bilateral lower extremities while in bed Subjective Date of service: 01/14/22 Principal diagnosis: MAURI Interval history: Patient seen and examined. Medical records and medication list reviewed. No acute event overnight noted by the RN. Patient denies any chest pain or difficulty breathing. Patient is tolerating tube feeding diet. Discussed plan of care at bedside with patient's RN. Objective - Exam Narrative Exam: General appearance: Present: no acute distress, cachectic - EENT Eyes: Present: PERRL ENT: hearing intact - Neck Neck: Present: normal ROM - Respiratory Respiratory effort: normal Respiratory: bilateral: diminished - Cardiovascular Rhythm: regular Heart Sounds: Present: S1 & S2 - Extremities Extremities: no ischemia, pulses intact, pulses symmetrical Extremity abnormal: edema - Peripheral Assessment Generalized Edema Type: Non-pitting Edema Degree: 1+ Capillary Refill: < 3 seconds Skin Temperature: Warm Peripheral Pulses: within normal limits - Abdominal General gastrointestinal: soft, non-distended, normal bowel sounds, PEG site noted - Integumentary Integumentary: Present: warm, erythema (With multiple wounds. Unstageable Sacral decubitis Ulcer) - Psychiatric Psychiatric: appropriate mood/affect, - Neurologic Neurologic: moves all extremities, other (AAOX2 but still with some confusion, follow simple commands) - Allied Health Allied health notes reviewed: nursing, case management - Constitutional Vitals: Vital Signs - 12hr 01/14/22 01/14/22 06:04 12:00 Temperature 97.6 F Pulse Rate 68 66 Respiratory 16 18 Rate Blood Pressure 111/54 [Left] O2 Sat by Pulse 100 97 Oximetry - Labs CBC & Chem 7: 01/15/22 04:33 01/14/22 23:21 Labs: Abnormal lab results 01/13/22 01/13/22 01/14/22 Range/Units 16:55 18:40 01:17 WBC (4.5-11.0) K/mm3 Hgb (11.8-15.2) gm/dl Hct (35.5-45.6) % MCH (28-32) pg RDW (13.2-15.2) % Plt Count (140-440) K/mm3 Seg Neuts % (Manual) (40.0-70.0) % Lymphocytes % (Manual) (13.4-35.0) % Nucleated RBC % (0.0-0.9) % Seg Neutrophils # Man (1.8-7.7) K/mm3 Lymphocytes # (Manual) (1.2-5.4) K/mm3 Sodium 151 H D (137-145) mmol/L Potassium 3.4 L D (3.6-5.0) mmol/L Chloride 111.1 H (98-107) mmol/L Carbon Dioxide 20 L (22-30) mmol/L BUN 115 H (9-20) mg/dL Creatinine 5.4 H (0.8-1.3) mg/dL Glucose 273 H (75-100) mg/dL POC Glucose 238 H 200 H (70-105) mg/dL Calcium 7.6 L (8.4-10.2) mg/dL Phosphorus (2.5-4.5) mg/dL 01/14/22 01/14/22 01/14/22 Range/Units 05:47 05:47 06:12 WBC 17.0 H (4.5-11.0) K/mm3 Hgb 11.2 L (11.8-15.2) gm/dl Hct 35.1 L (35.5-45.6) % MCH 27 L (28-32) pg RDW 23.7 H (13.2-15.2) % Plt Count 32 L (140-440) K/mm3 Seg Neuts % (Manual) 99.0 H (40.0-70.0) % Lymphocytes % (Manual) 1.0 L (13.4-35.0) % Nucleated RBC % 1.0 H (0.0-0.9) % Seg Neutrophils # Man 16.8 H (1.8-7.7) K/mm3 Lymphocytes # (Manual) 0.2 L (1.2-5.4) K/mm3 Sodium (137-145) mmol/L Potassium (3.6-5.0) mmol/L Chloride (98-107) mmol/L Carbon Dioxide (22-30) mmol/L BUN (9-20) mg/dL Creatinine (0.8-1.3) mg/dL Glucose (75-100) mg/dL POC Glucose 220 H (70-105) mg/dL Calcium (8.4-10.2) mg/dL Phosphorus 4.70 H D (2.5-4.5) mg/dL 01/14/22 Range/Units 11:36 WBC (4.5-11.0) K/mm3 Hgb (11.8-15.2) gm/dl Hct (35.5-45.6) % MCH (28-32) pg RDW (13.2-15.2) % Plt Count (140-440) K/mm3 Seg Neuts % (Manual) (40.0-70.0) % Lymphocytes % (Manual) (13.4-35.0) % Nucleated RBC % (0.0-0.9) % Seg Neutrophils # Man (1.8-7.7) K/mm3 Lymphocytes # (Manual) (1.2-5.4) K/mm3 Sodium (137-145) mmol/L Potassium (3.6-5.0) mmol/L Chloride (98-107) mmol/L Carbon Dioxide (22-30) mmol/L BUN (9-20) mg/dL Creatinine (0.8-1.3) mg/dL Glucose (75-100) mg/dL POC Glucose 193 H (70-105) mg/dL Calcium (8.4-10.2) mg/dL Phosphorus (2.5-4.5) mg/dL
[2022-01-14] MEDS: CEFEPIME/NS 1 GM/100 ML 1 GM/100 ML BAG IV SCH (17:11)
[2022-01-14] MEDS: ACETAMINOPHEN 325 MG TAB PO PRN (22:00)
[2022-01-15 00:09] LABS: Calcium 7.4 mg/dL (8.4-10.2)
[2022-01-15 04:54] LABS: Hemoglobin 10.5 gm/dl (11.8-15.2); Mean Corpuscular HGB Conc 33 % (32-34); Mean Corpuscular Volume 83 fl (84-94); Platelet Count 126 K/mm3 (140-440); Red Blood Count 3.87 M/mm3 (3.65-5.03); Red Cell Distribution Width 24.5 % (13.2-15.2)
[2022-01-15 05:32] LABS: Anisocytosis 2+; Band Neutrophils # (Manual) 0.1 K/mm3; Basophils % (Manual) 0 % (0.0-1.8); Platelet Estimate Consistent w Auto; Total Cells Counted 100
[2022-01-15] MEDS: INSULIN LISPRO 100 UNIT/ML SUB-Q SCH ×3 (06:35→23:05)
[2022-01-15] MEDS: MIDODRINE 10 MG TAB PO SCH ×3 (08:22→17:39)
--- NOTE | 2022-01-15 11:13 | Progress Note ---
Assessment and Plan Assessment: Acute metabolic encephalopathy MAURI (acute kidney injury) Hypertension Congestive heart failure Diabetes Hypernatremia SIRS (systemic inflammatory response syndrome Plan: No new BMP labs noted for today. Serum creatinine was 2.7 yesterday, and prior was 5.4 S/P vasc cath placement on 12/14/21 S/P hemodialysis on 12/14/21 and yesterday on 12/15/21 No acute indication for HD today Check BMP in a.m Renal US was negative for obstruction Urine lytes reviewed, has active sediments. KAMILLA, ANCA, C3, C4, anti-GBM, Hepatitis panel, serum free light chains, SPEP- pending S/P D5W@ 125 ml/hr for severe Hypernatremia, sodium level was 138 yesterday Renally dose medications Strict I&O's daily Obtain daily weights Assess dialysis needs daily Monitor for renal recovery Plan of care reviewed by Dr. Ireland Subjective Date of service: 01/15/22 Principal diagnosis: MAURI Interval history: Patient seen lying in bed. Awake. No family at bedside. Objective - Vital Signs Vital signs: Vital Signs - 12hr 01/14/22 01/15/22 01/15/22 23:10 00:00 04:06 Temperature 98.6 F 98.6 F Pulse Rate 71 66 68 Respiratory 18 18 Rate Blood Pressure 84/50 85/49 O2 Sat by Pulse 100 100 Oximetry 01/15/22 01/15/22 01/15/22 07:34 07:35 10:00 Temperature Pulse Rate Respiratory 20 Rate Blood Pressure 98/54 98/54 O2 Sat by Pulse 99 Oximetry - General Appearance General appearance: other (No acute distress) EENT: ATNC Neck: no JVD, supple Respiratory: Present: Decreased Breath Sounds, Other (on oxygen via NC) Cardiology: S1S2 Gastrointestinal: normoactive bowel sounds Integumentary: warm and dry Neurologic: other (Awake and alert) Musculoskeletal: other (No edema) - Lab 01/15/22 04:33 01/14/22 23:21 Most recent lab results Calcium 7.4 mg/dL (8.4-10.2) L 01/14/22 23:21 Phosphorus 4.20 mg/dL (2.5-4.5) 01/15/22 04:33 Urine Sodium 58 mmol/L 01/12/22 11:44 Medications & Allergies - Medications Allergies/Adverse Reactions: Allergies No Known Allergies Allergy (Verified 12/09/21 12:16) Home Medications: Home Medications Medication Instructions Recorded Confirmed Last Taken Type cephALEXin [Keflex] 500 mg PO Q6HR 7 Days #28 capsule 12/09/21 01/14/22 Unknown Rx Aspirin [[place] Aspirin EC] 81 mg PO QDAY 12/14/21 01/14/22 Unknown History Atorvastatin [Lipitor] 80 mg PO QHS 12/14/21 01/14/22 Unknown History Dapagliflozin Propanediol [Farxiga] 10 mg PO QDAY 12/14/21 01/14/22 Unknown History Insulin Detemir [Levemir VIAL] 25 unit SQ QHS 12/14/21 01/14/22 Unknown History Insulin Lispro [Admelog] 100 unit SQ ACHS 12/14/21 01/14/22 Unknown History Tamsulosin [Flomax] 0.4 mg PO QDAY 12/14/21 01/14/22 Unknown History carvediloL [Coreg] 3.125 mg PO BID 12/14/21 01/14/22 Unknown History Clopidogrel [Plavix] 75 mg PO QDAY tablet 12/27/21 01/14/22 Unknown Rx Sertraline [Zoloft] 100 mg PO QDAY #30 12/27/21 01/14/22 Unknown Rx Simple Syrup 15 ml FEEDTUBE PRN PRN oral.liqd 12/27/21 01/14/22 Unknown Rx Simple Syrup 30 ml FEEDTUBE PRN PRN oral.liqd 12/27/21 01/14/22 Unknown Rx Sodium Bicarbonate 325 mg FEEDTUBE PRN PRN #30 tablet 12/27/21 01/14/22 Unknown Rx Torsemide [Demadex] 20 mg PO QDAY #30 12/27/21 01/14/22 Unknown Rx Active Medications: Generic Name Dose Route Start Last Admin Trade Name Freq PRN Reason Stop Dose Admin Acetaminophen 650 mg 01/11/22 05:40 01/14/22 22:00 Acetaminophen 325 Mg Tab PO 650 mg Q4H PRN Administration Pain MILD(1-3)/Fever >100.5/ROGERS Albuterol 2.5 mg 01/11/22 05:40 Albuterol 2.5 Mg/3 Ml Nebu IH Q3HRT PRN Shortness Of Breath Lipase/Protease/Amylase 1 each 01/12/22 15:24 Lipase 10,500/Protease 25,000/Amylase 43,750 (Units) Dr Mariee FEEDTUBE PRN PRN For Clogged Feeding Tube Aspirin 81 mg 01/13/22 11:00 01/14/22 10:18 Aspirin 81 Mg Tab Chew FEEDTUBE 81 mg QDAY ALEXSANDRA Administration Atorvastatin Calcium 80 mg 01/11/22 22:00 01/14/22 21:54 Atorvastatin 40 Mg Tab PO 80 mg QHS ALEXSANDRA Administration Clopidogrel Bisulfate 75 mg 01/11/22 10:00 01/14/22 10:18 Clopidogrel 75 Mg Tab PO 75 mg QDAY ALEXSANDRA Administration Dextrose 50 ml 01/11/22 05:40 Dextrose 50% In Water (25gm) 50 Ml Syringe IV Q30MIN PRN Hypoglycemia Protocol Famotidine 10 mg 01/13/22 11:00 01/14/22 21:54 Famotidine 10 Mg Tab FEEDTUBE 10 mg BID ALEXSANDRA Administration Hydralazine HCl 10 mg 01/11/22 05:54 Hydralazine 20 Mg/1 Ml Inj IV Q6H PRN Blood Pressure Cefepime HCl 1 gm in 100 mls @ 200 mls/hr 01/13/22 18:00 01/14/22 17:11 Cefepime/Ns 1 Gm/100 Ml IV 200 mls/hr QPM ALEXSANDRA Administration Protocol Sodium Chloride 100 mls @ 999 mls/hr 01/13/22 18:00 Nacl 0.9% IV ASHLEY PRN Hypotension Insulin Glargine 10 units 01/12/22 22:00 01/14/22 21:54 Insulin Glargine 100 Units/Ml SUB-Q 10 units QHS ALEXSANDRA Administration Insulin Human Lispro 0 unit 01/11/22 06:00 01/15/22 06:35 Insulin Lispro 100 Unit/Ml SUB-Q 6 unit Q6HR ALEXSANDRA Administration Protocol Midodrine 10 mg 01/12/22 09:03 01/14/22 17:11 Midodrine 10 Mg Tab PO 10 mg TID@0800,1200,1600 ALEXSANDRA Administration Ondansetron HCl 4 mg 01/11/22 05:40 Ondansetron 4 Mg/2 Ml Inj IV Q8H PRN Nausea And Vomiting Simple Syrup 15 ml 01/12/22 15:24 Simple Syrup 15 Ml FEEDTUBE PRN PRN Hypoglycemia Simple Syrup 30 ml 01/12/22 15:24 Simple Syrup 15 Ml FEEDTUBE PRN PRN Hypoglycemia Sodium Bicarbonate 325 mg 01/12/22 15:24 Sodium Bicarbonate 325 Mg Tab FEEDTUBE PRN PRN For Clogged Feeding Tube Sodium Chloride 10 ml 01/11/22 10:00 01/14/22 21:56 Sodium Chloride 0.9% 10 Ml Flush Syringe IV 10 ml BID ALEXSANDRA Administration Sodium Chloride 10 ml 01/11/22 05:40 Sodium Chloride 0.9% 10 Ml Flush Syringe IV PRN PRN LINE FLUSH Sodium Hypochlorite 1 applic 01/14/22 10:00 01/14/22 21:54 Sodium Hypochlorite, Dakin's 1/2 Strength (0.25%) 473 Ml Topical Soln TP 1 applicatio BID ALEXSANDRA Administration Tamsulosin HCl 0.4 mg 01/11/22 10:00 01/14/22 10:18 Tamsulosin 0.4 Mg Cap PO 0.4 mg QDAY ALEXSANDRA Administration
[2022-01-15] MEDS: SODIUM HYPOCHLORITE, DAKIN'S 1/2 STRENGTH (0.25%) 473 ML TOPICAL SOLN TP SCH ×2 (11:23→23:06)
[2022-01-15] MEDS: ASPIRIN 81 MG TAB CHEW FEEDTUBE SCH (11:23)
[2022-01-15] MEDS: FAMOTIDINE 10 MG TAB FEEDTUBE SCH ×2 (11:23→23:06)
[2022-01-15] MEDS: TAMSULOSIN 0.4 MG CAP PO SCH (11:28)
[2022-01-15] MEDS: CLOPIDOGREL 75 MG TAB PO SCH (11:29)
--- NOTE | 2022-01-15 11:56 | Progress Note ---
Assessment and Plan pt appears more aware of surroundings. Nursing reports freq bm. Wound irrig with dakins solution ordered bid and prn fecal soilage. Stool for C diff requested. Cont signs of deep tissue necrosis on wound exam pt will need to go to or for d ebridement. Subjective Date of service: 01/15/22 Patient Reports: Positive: no new complaints Narrative: pt appears more aware of surroundings. Nursing reports freq bm. Wound irrig with dakins solution ordered bid and prn fecal soilage. Stool for C diff requested. Cont signs of deep tissue necrosis on wound exam pt will need to go to or for debridement. Objective Vital Signs - 12hr 01/15/22 01/15/22 01/15/22 00:00 04:06 07:34 Temperature 98.6 F Pulse Rate 66 68 Respiratory 18 Rate Blood Pressure 85/49 98/54 O2 Sat by Pulse 100 Oximetry 01/15/22 01/15/22 07:35 10:00 Temperature Pulse Rate Respiratory 20 Rate Blood Pressure 98/54 O2 Sat by Pulse 99 Oximetry - Labs 01/15/22 04:33 01/14/22 23:21 Diabetes panel 01/14/22 Range/Units 23:21 Sodium 138 D (137-145) mmol/L Potassium 3.9 (3.6-5.0) mmol/L Chloride 101.1 (98-107) mmol/L Carbon Dioxide 24 (22-30) mmol/L BUN 44 H (9-20) mg/dL Creatinine 2.7 H (0.8-1.3) mg/dL Glucose 308 H (75-100) mg/dL Calcium 7.4 L (8.4-10.2) mg/dL Calcium panel 01/14/22 01/15/22 Range/Units 23:21 04:33 Calcium 7.4 L (8.4-10.2) mg/dL Phosphorus 4.20 (2.5-4.5) mg/dL Pituitary panel 01/14/22 Range/Units 23:21 Sodium 138 D (137-145) mmol/L Potassium 3.9 (3.6-5.0) mmol/L Chloride 101.1 (98-107) mmol/L Carbon Dioxide 24 (22-30) mmol/L BUN 44 H (9-20) mg/dL Creatinine 2.7 H (0.8-1.3) mg/dL Glucose 308 H (75-100) mg/dL Calcium 7.4 L (8.4-10.2) mg/dL Adrenal panel 01/14/22 Range/Units 23:21 Sodium 138 D (137-145) mmol/L Potassium 3.9 (3.6-5.0) mmol/L Chloride 101.1 (98-107) mmol/L Carbon Dioxide 24 (22-30) mmol/L BUN 44 H (9-20) mg/dL Creatinine 2.7 H (0.8-1.3) mg/dL Glucose 308 H (75-100) mg/dL Calcium 7.4 L (8.4-10.2) mg/dL
--- NOTE | 2022-01-15 12:54 | Progress Note ---
Assessment and Plan Cultures: MRSA nasal PCR: Positive 01/11/2022 blood culture: No growth 01/11/2022 urine culture: Enterobacter, Enterococcus A/P: 66-year-old male with hypertension, CHF, diabetes, prior CVA, status post PEG tube, indwelling Vallecillo catheter, half-way resident: #Severe sepsis: Multifactorial, likely secondary to UTI, infected sacral decubitus ulcer. UA showed significant pyuria. Blood cultures with no growth. #UTI: indwelling Vallecillo. UA with pyuria, culture with Enterobacter, Enterococcus #Necrotic sacral decubitus ulcer with eschar. Underwent debridement by Dr. Small on 01/14/2022. CT without any evidence of osteomyelitis. #Acute renal failure: renally adjust abx. Planned for HD> #Prior CVA, bedbound status with indwelling Vallecillo catheter, PEG tube #Acute encephalopathy: Admitted with severe hypernatremia. #Acute thrombocytopenia: probably from sepsis. #Protein calorie malnutrition Recs: -continue renally dosed IV cefepime, vancomycin -Follow-up cultures, C.difficile PCR -Wound care and offloading -Guarded prognosis Tara Ramos MD, FACP, [facility] ([facility] O: [phone] F: [phone] C: [phone] Subjective Date of service: 01/15/22 Principal diagnosis: MAURI Interval history: Lying on his side. No fever. More awake. Denies any complaints. Reportedly with some diarrhea, C. difficile pending. Objective - Exam Narrative Exam: Physical Exam: Constitutional: awake, alert, lying on his side, no distress Head, Ears, Nose: Normocephalic, atraumatic. External ears, nose normal Eyes: Conjunctivae/corneas clear. No icterus. No ptosis. Neck: Supple, no meningeal signs Cardiovascular: S1, S2 + Respiratory: Good air entry, clear to auscultation bilaterally GI: Soft, non-tender; bowel sounds normal. No peritoneal signs. PEG tube +. Vallecillo + Musculoskeletal: Sacral decubitus ulcer with dressing Skin: No rash or abscess Hem/Lymphatic: No palpable cervical or supraclavicular nodes. No lymphangitis Psych: calm, no agitaton Neurological: awake, alert, responsive - Constitutional Vitals: Vital Signs Temp Pulse Resp BP Pulse Ox 98.6 F 68 20 98/54 99 01/15/22 04:06 01/15/22 04:06 01/15/22 07:35 01/15/22 07:35 01/15/22 10:00 Temperature -Last 24 Hours Temperature 98.6 F Temperature 98.6 F Temperature 98.5 F Temperature 98.3 F Temperature 98.2 F Temperature 98.0 F - Labs CBC & Chem 7: 01/15/22 04:33 01/14/22 23:21 Labs: Abnormal lab results 01/14/22 01/14/22 01/14/22 Range/Units 16:14 23:20 23:21 WBC (4.5-11.0) K/mm3 Hgb (11.8-15.2) gm/dl Hct (35.5-45.6) % MCV (84-94) fl MCH (28-32) pg RDW (13.2-15.2) % Plt Count (140-440) K/mm3 Seg Neuts % (Manual) (40.0-70.0) % Lymphocytes % (Manual) (13.4-35.0) % Seg Neutrophils # Man (1.8-7.7) K/mm3 Lymphocytes # (Manual) (1.2-5.4) K/mm3 BUN 44 H (9-20) mg/dL Creatinine 2.7 H (0.8-1.3) mg/dL Glucose 308 H (75-100) mg/dL POC Glucose 219 H 271 H (70-105) mg/dL Calcium 7.4 L (8.4-10.2) mg/dL 01/15/22 01/15/22 01/15/22 Range/Units 04:33 05:50 11:44 WBC 14.8 H (4.5-11.0) K/mm3 Hgb 10.5 L (11.8-15.2) gm/dl Hct 32.0 L (35.5-45.6) % MCV 83 L (84-94) fl MCH 27 L (28-32) pg RDW 24.5 H (13.2-15.2) % Plt Count 126 L D (140-440) K/mm3 Seg Neuts % (Manual) 95.0 H (40.0-70.0) % Lymphocytes % (Manual) 0 L (13.4-35.0) % Seg Neutrophils # Man 14.1 H (1.8-7.7) K/mm3 Lymphocytes # (Manual) 0.0 L (1.2-5.4) K/mm3 BUN (9-20) mg/dL Creatinine (0.8-1.3) mg/dL Glucose (75-100) mg/dL POC Glucose 225 H 168 H (70-105) mg/dL Calcium (8.4-10.2) mg/dL
--- NOTE | 2022-01-15 15:31 | Progress Note ---
Assessment and Plan This is a 66-year-old male with known past medical history of hypertension, CVA, CHF, DM, dysphagia s/p PEGtube placement admitted for sepsis and MAURI Hospital Course to Date: 01/12: Patient remains encephalopathic but more awake, following simple commands. Still hypotensive this am, probable sepsis. Febrile overnight with worsening leukocytosis this am. Cultures are pending. Continue IVF hydration and empiric IV abx. Multiple wounds, including unstageable sacral decub and MRSA PCR positive. IV Vanco was also initiated, renal dose per pharmacy. ID consulted. Midodrine also added TID. General surgery and wound care was also consulted for wounds eval and treatment. Worsening renal function with hypernatremia and hyperkalemia also noted, continue IVF hydration per nephro. Worsening thrombocytopenia also noted, no s/s of any active bleeding. H&H stable. Hold AC for now, HIT panel ordered. Lantus qhs added for hyperglycemia, continue BG and SSI Q6hrs 01/13: Patient tolerating tube feeds via PEG, unsure why the patient who had a PEG got so dehydrated at the facility, it appears he was tolerating some PO and as a result PEG was not in use at the facility. He is for debridement tomorrow, will continue free water flushes-150CC Q6 Considering he is on HD, will reassess and stop tomorrow if improved, Keep NPO after Midnight Continue abx therapy, Mental status improving some Discharge planning when stable 01/14/ Na level improving, Cr stable after HD x2, cont iv fluid, follow renal recommendation, pending surgical eval for decubitus ulcer 01/15: Plan to hold hemodialysis today, creatinine IVF/stable. Status post bedside debridement of the decubitus ulcer by general surgery. Patient need deep debridement which is planned for tomorrow. N.p.o. after midnight. Continue to follow BMP Assessment and Plan #Acute Metabolic Encephalopathy - Multifactorial: probably due to azotemia vs hypernatremia, vs infectious process - on Continous IVF hydration and empiric IV abx - Mentation with mild improvement, following simple commands - Possible CT head tomorrow if no significant improvement in mentation - Frequent reorientation - Avoid sedatives agents - Maintenance of sleep-wake cycle #Hypotension 2/2 #Sepsis Vs hypovolemia #H/o Congestive Heart Failure(CHF) - Presented with tachycardia and hypotension - Patient remains hypotension this am, was febrile overnight and worsen leukocytosis this am - 12/14/21 Ech reviewed EF 45-50%, patient appear hypovolemic and dry - Continue IVF hydration per Nephro - Hold home antihypertensive agents - Midodrine added - s/p rehydration with cont. IVF - Continue blood pressure monitor per protocol - Maintain MAP above 65 - Strict intake and output and daily weight #Acute Kidney Injury(MAURI) most likely ATN #Hypernatremia #Hyperkalemia - probably due to hypotension/hypovelemia - Per record Scr. was 1.2 from last admit on 12/2021 - Scr. as high as 5.9, BUN 111 - X1 dose of kayexalate, FWF for hypernatremia - Nephrology on consult, appreciated recommendation - no hydronephrosis on renal US - Strict intake and output - Avoid nephrotoxic medications; Renally dose medications - Vallecillo in place, initiated on HD 01/14 #Severe Sepsis- multifactorial #Acute cystitis #Sacral Decubitis Ulcer #Leukocytosis #Lactic Acidosis - Presented with tachycardia and hypotension - Patient remains hypotension this am, was febrile overnight and worsen leuk ocytosis this am - Cultures pending, MRSA PCR positive - With multiple wounds, including malodourous, unstageable sacral decubitis. - On Empiric IV Abx- Rocephin, IV Vanco added, renally dose per pharmacy - ID consulted - Continue to F/U on cultures - General Surgery consulted for possible debridement, wound care eval and treat - Wound care also consulted #Dysphagia s/p PEGtube Placement - Nutrition consulted - Initiated enteral nutrition #Thrombocytopenia - Presented with low plt - Plt count worsen this am - no s/s of any active bleeding - Will hold AC- heparin SubQ for now - H&H stable - HIT panel ordered #Type 2 Diabetes with Hyperglycemia - Continue BG and SSI Q6hrs - Lantus added qHs - While critically ill target blood glucose of 140-180 #GI/DVT Prophylaxis - PPI- Pepcid - SCDs to bilateral lower extremities while in bed Subjective Date of service: 01/15/22 Principal diagnosis: MAURI Interval history: Patient seen and examined. Medical records and medication list reviewed. No acute event overnight noted by the RN. Patient denies any chest pain or difficulty breathing. Patient is tolerating tube feeding diet. Discussed plan of care at bedside with patient's RN. Objective - Exam Narrative Exam: General appearance: Present: no acute distress, cachectic - EENT Eyes: Present: PERRL ENT: hearing intact - Neck Neck: Present: normal ROM - Respiratory Respiratory effort: normal Respiratory: bilateral: diminished - Cardiovascular Rhythm: regular Heart Sounds: Present: S1 & S2 - Extremities Extremities: no ischemia, pulses intact, pulses symmetrical Extremity abnormal: edema - Peripheral Assessment Generalized Edema Type: Non-pitting Edema Degree: 1+ Capillary Refill: < 3 seconds Skin Temperature: Warm Peripheral Pulses: within normal limits - Abdominal General gastrointestinal: soft, non-distended, normal bowel sounds, PEG site noted - Integumentary Integumentary: Present: warm, erythema (With multiple wounds. Unstageable Sacral decubitis Ulcer) - Psychiatric Psychiatric: appropriate mood/affect, - Neurologic Neurologic: moves all extremities, other (AAOX2 but still with some confusion, follow simple commands) - Allied Health Allied health notes reviewed: nursing, case management - Constitutional Vitals: Vital Signs - 12hr 01/15/22 01/15/22 01/15/22 04:06 07:34 07:35 Temperature 98.6 F Pulse Rate 68 Respiratory 18 20 Rate Blood Pressure 85/49 98/54 98/54 O2 Sat by Pulse 100 Oximetry 01/15/22 10:00 Temperature Pulse Rate Respiratory Rate Blood Pressure O2 Sat by Pulse 97 Oximetry - Labs CBC & Chem 7: 01/16/22 04:28 01/16/22 04:28 Labs: Abnormal lab results 01/14/22 01/14/22 01/14/22 Range/Units 16:14 23:20 23:21 WBC (4.5-11.0) K/mm3 Hgb (11.8-15.2) gm/dl Hct (35.5-45.6) % MCV (84-94) fl MCH (28-32) pg RDW (13.2-15.2) % Plt Count (140-440) K/mm3 Seg Neuts % (Manual) (40.0-70.0) % Lymphocytes % (Manual) (13.4-35.0) % Seg Neutrophils # Man (1.8-7.7) K/mm3 Lymphocytes # (Manual) (1.2-5.4) K/mm3 BUN 44 H (9-20) mg/dL Creatinine 2.7 H (0.8-1.3) mg/dL Glucose 308 H (75-100) mg/dL POC Glucose 219 H 271 H (70-105) mg/dL Calcium 7.4 L (8.4-10.2) mg/dL Coronavirus (PCR) (Negative) 01/15/22 01/15/22 01/15/22 Range/Units 04:33 05:50 10:30 WBC 14.8 H (4.5-11.0) K/mm3 Hgb 10.5 L (11.8-15.2) gm/dl Hct 32.0 L (35.5-45.6) % MCV 83 L (84-94) fl MCH 27 L (28-32) pg RDW 24.5 H (13.2-15.2) % Plt Count 126 L D (140-440) K/mm3 Seg Neuts % (Manual) 95.0 H (40.0-70.0) % Lymphocytes % (Manual) 0 L (13.4-35.0) % Seg Neutrophils # Man 14.1 H (1.8-7.7) K/mm3 Lymphocytes # (Manual) 0.0 L (1.2-5.4) K/mm3 BUN (9-20) mg/dL Creatinine (0.8-1.3) mg/dL Glucose (75-100) mg/dL POC Glucose 225 H (70-105) mg/dL Calcium (8.4-10.2) mg/dL Coronavirus (PCR) Positive A (Negative) 01/15/22 Range/Units 11:44 WBC (4.5-11.0) K/mm3 Hgb (11.8-15.2) gm/dl Hct (35.5-45.6) % MCV (84-94) fl MCH (28-32) pg RDW (13.2-15.2) % Plt Count (140-440) K/mm3 Seg Neuts % (Manual) (40.0-70.0) % Lymphocytes % (Manual) (13.4-35.0) % Seg Neutrophils # Man (1.8-7.7) K/mm3 Lymphocytes # (Manual) (1.2-5.4) K/mm3 BUN (9-20) mg/dL Creatinine (0.8-1.3) mg/dL Glucose (75-100) mg/dL POC Glucose 168 H (70-105) mg/dL Calcium (8.4-10.2) mg/dL Coronavirus (PCR) (Negative)
[2022-01-15 16:07] LABS: Heparin-Induced Platelet Antib Positive (Negative); Unfractionated Heparin Negative (Negative)
[2022-01-15] MEDS: CEFEPIME/NS 1 GM/100 ML 1 GM/100 ML BAG IV SCH (17:42)
[2022-01-15] MEDS: INSULIN GLARGINE 100 UNITS/ML SUB-Q SCH (23:04)
[2022-01-16] MEDS: PRAZOSIN 5 MG CAP PO SCH ×2 (02:20→19:58)
[2022-01-16 04:53] LABS: Hematocrit 33.1 % (35.5-45.6); Hemoglobin 10.7 gm/dl (11.8-15.2); Mean Corpuscular HGB Conc 32 % (32-34); Mean Corpuscular Volume 84 fl (84-94); Red Blood Count 3.95 M/mm3 (3.65-5.03)
[2022-01-16 04:56] LABS: Red Cell Distribution Width 23.3 % (13.2-15.2)
[2022-01-16 05:03] LABS: Platelet Count 48 K/mm3 (140-440)
[2022-01-16 05:14] LABS: Calcium 7.7 mg/dL (8.4-10.2)
[2022-01-16 05:39] LABS: Total Cells Counted 100
[2022-01-16 05:40] LABS: Anisocytosis 2+; Band Neutrophils # (Manual) 0.1 K/mm3; Basophils % (Manual) 0 % (0.0-1.8); Platelet Estimate Consistent w Auto
[2022-01-16] MEDS: POTASSIUM CHLORIDE 10 MEQ 10 MEQ/100 ML BAG IV SCH ×3 (07:29→22:23)
[2022-01-16] MEDS: INSULIN LISPRO 100 UNIT/ML SUB-Q SCH ×3 (07:32→20:00)
[2022-01-16] MEDS: SODIUM HYPOCHLORITE, DAKIN'S 1/2 STRENGTH (0.25%) 473 ML TOPICAL SOLN TP SCH ×2 (08:01→23:00)
[2022-01-16] MEDS: CLOPIDOGREL 75 MG TAB PO SCH (08:15)
[2022-01-16] MEDS: MIDODRINE 10 MG TAB PO SCH ×2 (08:35→19:40)
--- NOTE | 2022-01-16 09:12 | Progress Note ---
Assessment and Plan Acute metabolic encephalopathy MAURI (acute kidney injury) Hypertension Congestive heart failure Diabetes Hypernatremia SIRS (systemic inflammatory response syndrome Plan: Cr increased since yesterday off HD but some imprveemnt n UOP no HD today KCl 40 meq x1, will repeat BMP ~1600 will repeat 24 hours Cr clearance S/P vasc cath placement on 12/14/21 S/P hemodialysis on 12/14/21 and yesterday on 12/15/21 Renal US was negative for obstruction Urine lytes reviewed, has active sediments. KAMILLA, ANCA, C3, C4, anti-GBM, Hepatitis panel, serum free light chains, SPEP- pending Renally dose medications Strict I&O's daily Obtain daily weights Assess dialysis needs daily Monitor for renal recovery Subjective Date of service: 01/16/22 Principal diagnosis: MAURI Interval history: pt was tested positive for COVID-19 Objective - Vital Signs Vital signs: Vital Signs - 12hr 01/15/22 01/15/22 01/16/22 22:00 23:26 00:00 Temperature 98.2 F Pulse Rate 87 87 Respiratory 17 Rate Respiratory 17 Rate [ Generalized] Blood Pressure 96/46 [Left] O2 Sat by Pulse 100 2 L Oximetry 01/16/22 01/16/22 07:03 08:53 Temperature 98.1 F Pulse Rate 83 Respiratory 17 Rate Respiratory Rate [ Generalized] Blood Pressure 102/52 [Left] O2 Sat by Pulse 98 98 Oximetry - Lab 01/16/22 04:28 01/16/22 04:28 Most recent lab results Calcium 7.7 mg/dL (8.4-10.2) L 01/16/22 04:28 Phosphorus 3.80 mg/dL (2.5-4.5) 01/16/22 04:28 Urine Sodium 58 mmol/L 01/12/22 11:44 Medications & Allergies - Medications Allergies/Adverse Reactions: Allergies No Known Allergies Allergy (Verified 12/09/21 12:16) Home Medications: Home Medications Medication Instructions Recorded Confirmed Last Taken Type cephALEXin [Keflex] 500 mg PO Q6HR 7 Days #28 capsule 12/09/21 01/14/22 Unknown Rx Aspirin [Solon Aspirin EC] 81 mg PO QDAY 12/14/21 01/14/22 Unknown History Atorvastatin [Lipitor] 80 mg PO QHS 12/14/21 01/14/22 Unknown History Dapagliflozin Propanediol [Farxiga] 10 mg PO QDAY 12/14/21 01/14/22 Unknown History Insulin Detemir [Levemir VIAL] 25 unit SQ QHS 12/14/21 01/14/22 Unknown History Insulin Lispro [Admelog] 100 unit SQ ACHS 12/14/21 01/14/22 Unknown History Tamsulosin [Flomax] 0.4 mg PO QDAY 12/14/21 01/14/22 Unknown History carvediloL [Coreg] 3.125 mg PO BID 12/14/21 01/14/22 Unknown History Clopidogrel [Plavix] 75 mg PO QDAY tablet 12/27/21 01/14/22 Unknown Rx Sertraline [Zoloft] 100 mg PO QDAY #30 12/27/21 01/14/22 Unknown Rx Simple Syrup 15 ml FEEDTUBE PRN PRN oral.liqd 12/27/21 01/14/22 Unknown Rx Simple Syrup 30 ml FEEDTUBE PRN PRN oral.liqd 12/27/21 01/14/22 Unknown Rx Sodium Bicarbonate 325 mg FEEDTUBE PRN PRN #30 tablet 12/27/21 01/14/22 Unknown Rx Torsemide [Demadex] 20 mg PO QDAY #30 12/27/21 01/14/22 Unknown Rx Active Medications: Generic Name Dose Route Start Last Admin Trade Name Freq PRN Reason Stop Dose Admin Acetaminophen 650 mg 01/11/22 05:40 01/14/22 22:00 Acetaminophen 325 Mg Tab PO 650 mg Q4H PRN Administration Pain MILD(1-3)/Fever >100.5/ROGERS Albuterol 2.5 mg 01/11/22 05:40 Albuterol 2.5 Mg/3 Ml Nebu IH Q3HRT PRN Shortness Of Breath Lipase/Protease/Amylase 1 each 01/12/22 15:24 Lipase 10,500/Protease 25,000/Amylase 43,750 (Units) Dr Mariee FEEDTUBE PRN PRN For Clogged Feeding Tube Aspirin 81 mg 01/13/22 11:00 01/15/22 11:23 Aspirin 81 Mg Tab Chew FEEDTUBE 81 mg QDAY ALEXSANDRA Administration Atorvastatin Calcium 80 mg 01/11/22 22:00 01/15/22 23:07 Atorvastatin 40 Mg Tab PO 80 mg QHS ALEXSANDRA Administration Clopidogrel Bisulfate 75 mg 01/11/22 10:00 01/15/22 11:29 Clopidogrel 75 Mg Tab PO 75 mg QDAY ALEXSANDRA Administration Dextrose 50 ml 01/11/22 05:40 Dextrose 50% In Water (25gm) 50 Ml Syringe IV Q30MIN PRN Hypoglycemia Protocol Famotidine 10 mg 01/13/22 11:00 01/15/22 23:06 Famotidine 10 Mg Tab FEEDTUBE 10 mg BID ALEXSANDRA Administration Hydralazine HCl 10 mg 01/11/22 05:54 Hydralazine 20 Mg/1 Ml Inj IV Q6H PRN Blood Pressure Cefepime HCl 1 gm in 100 mls @ 200 mls/hr 01/13/22 18:00 01/15/22 17:42 Cefepime/Ns 1 Gm/100 Ml IV 200 mls/hr QPM ALEXSANDRA Administration Protocol Sodium Chloride 100 mls @ 999 mls/hr 01/13/22 18:00 Nacl 0.9% IV ASHLEY PRN Hypotension Potassium Chloride 10 meq in 100 mls @ 100 mls/hr 01/16/22 07:00 01/16/22 07:29 Kcl 10meq/100ml IV 01/16/22 10:59 100 mls/hr Q1H ALEXSANDRA Administration Potassium Chloride 10 meq in 100 mls @ 100 mls/hr 01/16/22 10:00 Kcl 10meq/100ml IV 01/16/22 13:59 Q1H ALEXSANDRA Insulin Glargine 10 units 01/12/22 22:00 01/15/22 23:04 Insulin Glargine 100 Units/Ml SUB-Q 10 units QHS ALEXSANDRA Administration Insulin Human Lispro 0 unit 01/11/22 06:00 01/16/22 07:32 Insulin Lispro 100 Unit/Ml SUB-Q 6 unit Q6HR ALEXSANDRA Administration Protocol Midodrine 10 mg 01/12/22 09:03 01/15/22 17:39 Midodrine 10 Mg Tab PO 10 mg TID@0800,1200,1600 ALEXSANDRA Administration Ondansetron HCl 4 mg 01/11/22 05:40 Ondansetron 4 Mg/2 Ml Inj IV Q8H PRN Nausea And Vomiting Prazosin HCl 5 mg 01/15/22 22:00 01/16/22 02:20 Prazosin 5 Mg Cap PO Not Given Q12HR ALEXSANDRA Simple Syrup 15 ml 01/12/22 15:24 Simple Syrup 15 Ml FEEDTUBE PRN PRN Hypoglycemia Simple Syrup 30 ml 01/12/22 15:24 Simple Syrup 15 Ml FEEDTUBE PRN PRN Hypoglycemia Sodium Bicarbonate 325 mg 01/12/22 15:24 Sodium Bicarbonate 325 Mg Tab FEEDTUBE PRN PRN For Clogged Feeding Tube Sodium Chloride 10 ml 01/11/22 10:00 01/15/22 23:07 Sodium Chloride 0.9% 10 Ml Flush Syringe IV 10 ml BID ALEXSANDRA Administration Sodium Chloride 10 ml 01/11/22 05:40 Sodium Chloride 0.9% 10 Ml Flush Syringe IV PRN PRN LINE FLUSH Sodium Hypochlorite 1 applic 01/14/22 10:00 01/15/22 23:06 Sodium Hypochlorite, Dakin's 1/2 Strength (0.25%) 473 Ml Topical Soln TP 1 applicatio BID ALEXSANDRA Administration
--- NOTE | 2022-01-16 10:14 | Progress Note ---
Assessment and Plan Cultures: MRSA nasal PCR: Positive 01/11/2022 blood culture: No growth 01/11/2022 urine culture: Enterobacter, Enterococcus 01/14/2022 decubitus OR culture: GNR A/P: 66-year-old male with hypertension, CHF, diabetes, prior CVA, status post PEG tube, indwelling Vallecillo catheter, skilled nursing resident: #Severe sepsis: Multifactorial, likely secondary to UTI, infected sacral decubitus ulcer. UA showed significant pyuria. Blood cultures with no growth. #COVID-19: initial CXR without pneumonia. On stable oxygen at 2 lit/min. #UTI: indwelling Vallecillo. UA with pyuria, culture with Enterobacter, Enterococcus #Necrotic sacral decubitus ulcer with eschar. Underwent debridement by Dr. Small on 01/14/2022. CT without any evidence of osteomyelitis. #Acute renal failure: renally adjust abx. Planned for HD> #Prior CVA, bedbound status with indwelling Vallecillo catheter, PEG tube #Acute encephalopathy: Admitted with severe hypernatremia. #Acute thrombocytopenia: probably from sepsis. #Protein calorie malnutrition Recs: -continue renally dosed IV cefepime, vancomycin -Due to renal function, not a candidate for Remdesivir. -Repeating chest x-ray, if it shows infiltrates, start decadron -checking CRP, ferritin, LDH. -Wound care and offloading -Guarded prognosis Tara Ramos MD, FACP, [facility] ([facility] O: [phone] F: [phone] C: [phone] Subjective Date of service: 01/16/22 Principal diagnosis: MAURI Interval history: Afebrile. Tested positive for COVID-19. On stable oxygen by nasal cannula at 2 L/min. Objective - Exam Narrative Exam: Physical Exam: deferred due to COVID-19 positivity, reduce risk of transmission - Constitutional Vitals: Vital Signs Temp Pulse Resp BP Pulse Ox 98.1 F 83 17 102/52 98 01/16/22 07:03 01/16/22 07:03 01/16/22 07:03 01/16/22 07:03 01/16/22 08:53 Temperature -Last 24 Hours Temperature 98.1 F Temperature 98.2 F Temperature 97.6 F - Labs CBC & Chem 7: 01/16/22 04:28 01/16/22 04:28 Labs: Abnormal lab results 01/13/22 01/15/22 01/15/22 Range/Units 04:56 10:30 11:44 WBC (4.5-11.0) K/mm3 Hgb (11.8-15.2) gm/dl Hct (35.5-45.6) % MCH (28-32) pg RDW (13.2-15.2) % Plt Count (140-440) K/mm3 Seg Neuts % (Manual) (40.0-70.0) % Lymphocytes % (Manual) (13.4-35.0) % Nucleated RBC % (0.0-0.9) % Seg Neutrophils # Man (1.8-7.7) K/mm3 Lymphocytes # (Manual) (1.2-5.4) K/mm3 Potassium (3.6-5.0) mmol/L BUN (9-20) mg/dL Creatinine (0.8-1.3) mg/dL Glucose (75-100) mg/dL POC Glucose 168 H (70-105) mg/dL Calcium (8.4-10.2) mg/dL Heparin-induced Plt Ab Positive H (Negative) Coronavirus (PCR) Positive A (Negative) 01/15/22 01/16/22 01/16/22 Range/Units 22:57 00:27 04:28 WBC 14.6 H (4.5-11.0) K/mm3 Hgb 10.7 L (11.8-15.2) gm/dl Hct 33.1 L (35.5-45.6) % MCH 27 L (28-32) pg RDW 23.3 H (13.2-15.2) % Plt Count 48 L (140-440) K/mm3 Seg Neuts % (Manual) 96.0 H (40.0-70.0) % Lymphocytes % (Manual) 0 L (13.4-35.0) % Nucleated RBC % 1.0 H (0.0-0.9) % Seg Neutrophils # Man 14.0 H (1.8-7.7) K/mm3 Lymphocytes # (Manual) 0.0 L (1.2-5.4) K/mm3 Potassium (3.6-5.0) mmol/L BUN (9-20) mg/dL Creatinine (0.8-1.3) mg/dL Glucose (75-100) mg/dL POC Glucose 325 H 332 H (70-105) mg/dL Calcium (8.4-10.2) mg/dL Heparin-induced Plt Ab (Negative) Coronavirus (PCR) (Negative) 01/16/22 01/16/22 Range/Units 04:28 05:42 WBC (4.5-11.0) K/mm3 Hgb (11.8-15.2) gm/dl Hct (35.5-45.6) % MCH (28-32) pg RDW (13.2-15.2) % Plt Count (140-440) K/mm3 Seg Neuts % (Manual) (40.0-70.0) % Lymphocytes % (Manual) (13.4-35.0) % Nucleated RBC % (0.0-0.9) % Seg Neutrophils # Man (1.8-7.7) K/mm3 Lymphocytes # (Manual) (1.2-5.4) K/mm3 Potassium 2.7 L* D (3.6-5.0) mmol/L BUN 54 H (9-20) mg/dL Creatinine 3.0 H (0.8-1.3) mg/dL Glucose 363 H (75-100) mg/dL POC Glucose 294 H (70-105) mg/dL Calcium 7.7 L (8.4-10.2) mg/dL Heparin-induced Plt Ab (Negative) Coronavirus (PCR) (Negative)
[2022-01-16] MEDS: FAMOTIDINE 10 MG TAB FEEDTUBE SCH ×2 (10:25→22:22)
--- NOTE | 2022-01-16 10:47 | XRay Report ---
CHEST 1 VIEW 01/16/2022 9:37 AM INDICATION / CLINICAL INFORMATION: COVID-19. COMPARISON: 01/11/2022 FINDINGS: SUPPORT DEVICES: A dual-lumen right IJ venous catheter terminates at the cavoatrial junction. HEART / MEDIASTINUM: No significant abnormality. LUNGS / PLEURA: There is poor inspiration. There are perhaps minimal airspace opacities in the lower lung zones. No consolidation, pleural effusion or pneumothorax. ADDITIONAL FINDINGS: No significant additional findings. IMPRESSION: 1. Interval placement of a right venous catheter with no pneumothorax. 2. There is poor inspiration. Minimal bibasilar airspace opacities are suspected which could represen t hypoventilatory changes or be related to Covid. Signer Name: Sandro Smith Jr, MD Signed: 01/16/2022 10:43 AM Workstation Name: [id number]
[2022-01-16] MEDS: ASPIRIN 81 MG TAB CHEW FEEDTUBE SCH (10:56)
--- NOTE | 2022-01-16 13:45 | Progress Note ---
Assessment and Plan pt appears more aware of surroundings. Nursing reports freq bm. Wound irrig with dakins solution ordered bid and prn fecal soilage. Stool for C diff requested. Cont signs of deep tissue necrosis on wound exam pt will need to go to or for d ebridement. Pt with covid positive test yesterday. He is not symptomatic but further debridem,ent will have to wait until mid next week. He denies any soa, fever or pain. Subjective Date of service: 01/16/22 Patient Reports: Positive: no new complaints Narrative: Pt with covid positive test yesterday. He is not symptomatic but further debridem,ent will have to wait until mid next week. He denies any soa, fever or pain. Objective Vital Signs - 12hr 01/16/22 01/16/22 01/16/22 07:03 08:53 09:51 Temperature 98.1 F 98.6 F Pulse Rate 83 80 Respiratory 17 16 Rate Blood Pressure 119/62 Blood Pressure 102/52 [Left] O2 Sat by Pulse 98 98 70 L Oximetry - Labs 01/16/22 04:28 01/16/22 04:28 Diabetes panel 01/16/22 Range/Units 04:28 Sodium 142 (137-145) mmol/L Potassium 2.7 L* D (3.6-5.0) mmol/L Chloride 104.4 (98-107) mmol/L Carbon Dioxide 24 (22-30) mmol/L BUN 54 H (9-20) mg/dL Creatinine 3.0 H (0.8-1.3) mg/dL Glucose 363 H (75-100) mg/dL Calcium 7.7 L (8.4-10.2) mg/dL Calcium panel 01/16/22 Range/Units 04:28 Calcium 7.7 L (8.4-10.2) mg/dL Phosphorus 3.80 (2.5-4.5) mg/dL Pituitary panel 01/16/22 Range/Units 04:28 Sodium 142 (137-145) mmol/L Potassium 2.7 L* D (3.6-5.0) mmol/L Chloride 104.4 (98-107) mmol/L Carbon Dioxide 24 (22-30) mmol/L BUN 54 H (9-20) mg/dL Creatinine 3.0 H (0.8-1.3) mg/dL Glucose 363 H (75-100) mg/dL Calcium 7.7 L (8.4-10.2) mg/dL Adrenal panel 01/16/22 Range/Units 04:28 Sodium 142 (137-145) mmol/L Potassium 2.7 L* D (3.6-5.0) mmol/L Chloride 104.4 (98-107) mmol/L Carbon Dioxide 24 (22-30) mmol/L BUN 54 H (9-20) mg/dL Creatinine 3.0 H (0.8-1.3) mg/dL Glucose 363 H (75-100) mg/dL Calcium 7.7 L (8.4-10.2) mg/dL
--- NOTE | 2022-01-16 13:52 | Progress Note ---
Assessment and Plan This is a 66-year-old male with known past medical history of hypertension, CVA, CHF, DM, dysphagia s/p PEGtube placement admitted for sepsis and MAURI Hospital Course to Date: 01/12: Patient remains encephalopathic but more awake, following simple commands. Still hypotensive this am, probable sepsis. Febrile overnight with worsening leukocytosis this am. Cultures are pending. Continue IVF hydration and empiric IV abx. Multiple wounds, including unstageable sacral decub and MRSA PCR positive. IV Vanco was also initiated, renal dose per pharmacy. ID consulted. Midodrine also added TID. General surgery and wound care was also consulted for wounds eval and treatment. Worsening renal function with hypernatremia and hyperkalemia also noted, continue IVF hydration per nephro. Worsening thrombocytopenia also noted, no s/s of any active bleeding. H&H stable. Hold AC for now, HIT panel ordered. Lantus qhs added for hyperglycemia, continue BG and SSI Q6hrs 01/13: Patient tolerating tube feeds via PEG, unsure why the patient who had a PEG got so dehydrated at the facility, it appears he was tolerating some PO and as a result PEG was not in use at the facility. He is for debridement tomorrow, will continue free water flushes-150CC Q6 Considering he is on HD, will reassess and stop tomorrow if improved, Keep NPO after Midnight Continue abx therapy, Mental status improving some Discharge planning when stable 01/14/ Na level improving, Cr stable after HD x2, cont iv fluid, follow renal recommendation, pending surgical eval for decubitus ulcer 01/15: Plan to hold hemodialysis today, creatinine IVF/stable. Status post bedside debridement of the decubitus ulcer by general surgery yesterday. Patient need deep debridement which is planned for tomorrow. N.p.o. after midnight. Continue to follow BMP 01/16: Positive for COVID-19, moved to COVID floor. We will continue to follow inflammatory markers. cancelled deep debridement at the OR today. We will continue to follow. Not a candidate for remdesivir due to renal failure, oxygen requirement has not changed, will hold dexamethasone, also has uncontrolled DM. Continue to follow Assessment and Plan #Acute Metabolic Encephalopathy - Multifactorial: probably due to azotemia vs hypernatremia, vs infectious process - on Continous IVF hydration and empiric IV abx - Mentation with mild improvement, following simple commands - Possible CT head tomorrow if no significant improvement in mentation - Frequent reorientation - Avoid sedatives agents - Maintenance of sleep-wake cycle #Hypotension 2/2 #Sepsis Vs hypovolemia #H/o Congestive Heart Failure(CHF) - Presented with tachycardia and hypotension - Patient remains hypotension this am, was febrile overnight and worsen leukocytosis this am - 12/14/21 Ech reviewed EF 45-50%, patient appear hypovolemic and dry - Continue IVF hydration per Nephro - Hold home antihypertensive agents - Midodrine added - s/p rehydration with cont. IVF - Continue blood pressure monitor per protocol - Maintain MAP above 65 - Strict intake and output and daily weight #Acute Kidney Injury(MAURI) most likely ATN #Hypernatremia #Hyperkalemia - probably due to hypotension/hypovelemia - Per record Scr. was 1.2 from last admit on 12/2021 - Scr. as high as 5.9, BUN 111 - X1 dose of kayexalate, FWF for hypernatremia - Nephrology on consult, appreciated recommendation - no hydronephrosis on renal US - Strict intake and output - Avoid nephrotoxic medications; Renally dose medications - Vallecillo in place, initiated on HD 01/14 #Severe Sepsis- multifactorial #Acute cystitis/UTI # Positive Covid 19 #Infected Sacral Decubitis Ulcer #Leukocytosis #Lactic Acidosis - Presented with tachycardia and hypotension - Patient remains hypotension this am, was febrile overnight and worsen leukocytosis this am - Cultures pending, MRSA PCR positive - With multiple wounds, including malodourous, unstageable sacral decubitis. - On Empiric IV Abx- Rocephin, IV Vanco added, renally dose per pharmacy - ID consulted - Continue to F/U on cultures - General Surgery consulted for possible debridement, wound care eval and treat - Wound care also consulted #Dysphagia s/p PEGtube Placement - Nutrition consulted - Initiated enteral nutrition #Thrombocytopenia - Presented with low plt - no s/s of any active bleeding - Will hold AC- heparin SubQ for now - H&H stable - HIT panel ordered #Type 2 Diabetes with Hyperglycemia - Continue BG and SSI Q6hrs - Lantus added qHs - While critically ill target blood glucose of 140-180 #GI/DVT Prophylaxis - PPI- Pepcid - SCDs to bilateral lower extremities while in bed Subjective Date of service: 01/16/22 Principal diagnosis: MAURI Interval history: Patient seen and examined. Medical records and medication list reviewed. No acute event overnight noted by the RN. Patient positive for COVID 19, more confused. Patient is tolerating tube feeding diet. Discussed plan of care at bedside with patient's RN. Objective - Exam Narrative Exam: General appearance: Present: no acute distress, cachectic - EENT Eyes: Present: PERRL ENT: hearing intact - Neck Neck: Present: normal ROM - Respiratory Respiratory effort: normal Respiratory: bilateral: diminished - Cardiovascular Rhythm: regular Heart Sounds: Present: S1 & S2 - Extremities Extremities: no ischemia, pulses intact, pulses symmetrical Extremity abnormal: edema - Peripheral Assessment Generalized Edema Type: Non-pitting Edema Degree: 1+ Capillary Refill: < 3 seconds Skin Temperature: Warm Peripheral Pulses: within normal limits - Abdominal General gastrointestinal: soft, non-distended, normal bowel sounds, PEG site noted - Integumentary Integumentary: Present: warm, erythema (With multiple wounds. Unstageable Sacral decubitis Ulcer) - Psychiatric Psychiatric: appropriate mood/affect, - Neurologic Neurologic: moves all extremities, other (AAOX2 but still with some confusion, follow simple commands) - Allied Health Allied health notes reviewed: nursing, case management - Constitutional Vitals: Vital Signs - 12hr 01/16/22 01/16/22 01/16/22 07:03 08:53 09:51 Temperature 98.1 F 98.6 F Pulse Rate 83 80 Respiratory 17 16 Rate Blood Pressure 119/62 Blood Pressure 102/52 [Left] O2 Sat by Pulse 98 98 70 L Oximetry - Labs CBC & Chem 7: 01/19/22 10:48 01/19/22 08:52 Labs: Abnormal lab results 01/13/22 01/15/22 01/16/22 Range/Units 04:56 22:57 00:27 WBC (4.5-11.0) K/mm3 Hgb (11.8-15.2) gm/dl Hct (35.5-45.6) % MCH (28-32) pg RDW (13.2-15.2) % Plt Count (140-440) K/mm3 Seg Neuts % (Manual) (40.0-70.0) % Lymphocytes % (Manual) (13.4-35.0) % Nucleated RBC % (0.0-0.9) % Seg Neutrophils # Man (1.8-7.7) K/mm3 Lymphocytes # (Manual) (1.2-5.4) K/mm3 Potassium (3.6-5.0) mmol/L BUN (9-20) mg/dL Creatinine (0.8-1.3) mg/dL Glucose (75-100) mg/dL POC Glucose 325 H 332 H (70-105) mg/dL Calcium (8.4-10.2) mg/dL Heparin-induced Plt Ab Positive H (Negative) 01/16/22 01/16/22 01/16/22 Range/Units 04:28 04:28 05:42 WBC 14.6 H (4.5-11.0) K/mm3 Hgb 10.7 L (11.8-15.2) gm/dl Hct 33.1 L (35.5-45.6) % MCH 27 L (28-32) pg RDW 23.3 H (13.2-15.2) % Plt Count 48 L (140-440) K/mm3 Seg Neuts % (Manual) 96.0 H (40.0-70.0) % Lymphocytes % (Manual) 0 L (13.4-35.0) % Nucleated RBC % 1.0 H (0.0-0.9) % Seg Neutrophils # Man 14.0 H (1.8-7.7) K/mm3 Lymphocytes # (Manual) 0.0 L (1.2-5.4) K/mm3 Potassium 2.7 L* D (3.6-5.0) mmol/L BUN 54 H (9-20) mg/dL Creatinine 3.0 H (0.8-1.3) mg/dL Glucose 363 H (75-100) mg/dL POC Glucose 294 H (70-105) mg/dL Calcium 7.7 L (8.4-10.2) mg/dL Heparin-induced Plt Ab (Negative) 01/16/22 Range/Units 11:59 WBC (4.5-11.0) K/mm3 Hgb (11.8-15.2) gm/dl Hct (35.5-45.6) % MCH (28-32) pg RDW (13.2-15.2) % Plt Count (140-440) K/mm3 Seg Neuts % (Manual) (40.0-70.0) % Lymphocytes % (Manual) (13.4-35.0) % Nucleated RBC % (0.0-0.9) % Seg Neutrophils # Man (1.8-7.7) K/mm3 Lymphocytes # (Manual) (1.2-5.4) K/mm3 Potassium (3.6-5.0) mmol/L BUN (9-20) mg/dL Creatinine (0.8-1.3) mg/dL Glucose (75-100) mg/dL POC Glucose 290 H (70-105) mg/dL Calcium (8.4-10.2) mg/dL Heparin-induced Plt Ab (Negative)
[2022-01-16] MEDS: CEFEPIME/NS 1 GM/100 ML 1 GM/100 ML BAG IV SCH (19:40)
[2022-01-16 21:55] LABS: Calcium 7.9 mg/dL (8.4-10.2)
[2022-01-16] MEDS: INSULIN GLARGINE 100 UNITS/ML SUB-Q SCH (22:54)
[2022-01-17] MEDS: INSULIN LISPRO 100 UNIT/ML SUB-Q SCH ×4 (00:10→17:59)
[2022-01-17] MEDS: PRAZOSIN 5 MG CAP PO SCH ×3 (01:25→23:10)
[2022-01-17] MEDS: POTASSIUM CHLORIDE 10 MEQ 10 MEQ/100 ML BAG IV SCH ×5 (01:27→10:59)
[2022-01-17] MEDS: MIDODRINE 10 MG TAB PO SCH ×4 (06:31→15:46)
[2022-01-17 08:02] LABS: Calcium 8.2 mg/dL (8.4-10.2)
[2022-01-17 08:10] LABS: Hematocrit 35.6 % (35.5-45.6); Hemoglobin 10.9 gm/dl (11.8-15.2); Mean Corpuscular HGB Conc 31 % (32-34); Mean Corpuscular Volume 85 fl (84-94); Red Blood Count 4.17 M/mm3 (3.65-5.03)
[2022-01-17 08:11] LABS: Platelet Count 46 K/mm3 (140-440); Red Cell Distribution Width 23.2 % (13.2-15.2)
[2022-01-17 10:12] LABS: Basophils # (Auto) 0.1 K/mm3 (0.0-0.1); Eosinophils # (Auto) 0.1 K/mm3 (0.0-0.4); Monocytes # (Auto) 0.5 K/mm3 (0.0-0.8); Monocytes % (Auto) 4.2 % (0.0-7.3)
--- NOTE | 2022-01-17 10:43 | Progress Note ---
Assessment and Plan Acute metabolic encephalopathy MAURI (acute kidney injury) Hypertension Congestive heart failure Diabetes Hypernatremia SIRS (systemic inflammatory response syndrome Plan: Cr slightly down no HD today will repeat 24 hours Cr clearance S/P vasc cath placement on 12/14/21 S/P hemodialysis on 12/14/21 and yesterday on 12/15/21 Renal US was negative for obstruction Urine lytes reviewed, has active sediments. KAMILLA, ANCA, C3, C4, anti-GBM, Hepatitis panel, serum free light chains, SPEP- pending Renally dose medications Strict I&O's daily Obtain daily weights Assess dialysis needs daily Monitor for renal recovery Subjective Date of service: 01/17/22 Principal diagnosis: MAURI Interval history: Making some urine. NAD. Objective - Exam Narrative Exam: General appearance: other (awake, no acute distress) EENT: ATNC Neck: no JVD, supple Respiratory: Present: Decreased Breath Sounds, Other Cardiology: S1S2 Gastrointestinal: normoactive bowel sounds Integumentary: warm and dry Neurologic: other (Awake anbd alert) Musculoskeletal: other (No edema) - Vital Signs Vital signs: Vital Signs - 12hr 01/16/22 01/17/22 01/17/22 22:47 00:00 04:59 Temperature 97.7 F 97.8 F Pulse Rate 87 86 82 Pulse Rate [ Dorsalis Pedis] Respiratory 19 17 Rate Blood Pressure 111/53 102/57 [Left] O2 Sat by Pulse 97 95 Oximetry 01/17/22 07:32 Temperature Pulse Rate Pulse Rate [ 65 Dorsalis Pedis] Respiratory 13 Rate Blood Pressure [Left] O2 Sat by Pulse 96 Oximetry - Lab 01/17/22 07:06 01/17/22 07:06 Most recent lab results Calcium 8.2 mg/dL (8.4-10.2) L 01/17/22 07:06 Phosphorus 3.60 mg/dL (2.5-4.5) 01/17/22 07:06 Urine Sodium 58 mmol/L 01/12/22 11:44 Medications & Allergies - Medications Allergies/Adverse Reactions: Allergies No Known Allergies Allergy (Verified 12/09/21 12:16) Home Medications: Home Medications Medication Instructions Recorded Confirmed Last Taken Type cephALEXin [Keflex] 500 mg PO Q6HR 7 Days #28 capsule 12/09/21 01/14/22 Unknown Rx Aspirin [[place] Aspirin EC] 81 mg PO QDAY 12/14/21 01/14/22 Unknown History Atorvastatin [Lipitor] 80 mg PO QHS 12/14/21 01/14/22 Unknown History Dapagliflozin Propanediol [Farxiga] 10 mg PO QDAY 12/14/21 01/14/22 Unknown History Insulin Detemir [Levemir VIAL] 25 unit SQ QHS 12/14/21 01/14/22 Unknown History Insulin Lispro [Admelog] 100 unit SQ ACHS 12/14/21 01/14/22 Unknown History Tamsulosin [Flomax] 0.4 mg PO QDAY 12/14/21 01/14/22 Unknown History carvediloL [Coreg] 3.125 mg PO BID 12/14/21 01/14/22 Unknown History Clopidogrel [Plavix] 75 mg PO QDAY tablet 12/27/21 01/14/22 Unknown Rx Sertraline [Zoloft] 100 mg PO QDAY #30 12/27/21 01/14/22 Unknown Rx Simple Syrup 15 ml FEEDTUBE PRN PRN oral.liqd 12/27/21 01/14/22 Unknown Rx Simple Syrup 30 ml FEEDTUBE PRN PRN oral.liqd 12/27/21 01/14/22 Unknown Rx Sodium Bicarbonate 325 mg FEEDTUBE PRN PRN #30 tablet 12/27/21 01/14/22 Unknown Rx Torsemide [Demadex] 20 mg PO QDAY #30 12/27/21 01/14/22 Unknown Rx Active Medications: Generic Name Dose Route Start Last Admin Trade Name Freq PRN Reason Stop Dose Admin Acetaminophen 650 mg 01/11/22 05:40 01/14/22 22:00 Acetaminophen 325 Mg Tab PO 650 mg Q4H PRN Administration Pain MILD(1-3)/Fever >100.5/ROGERS Albuterol 2.5 mg 01/11/22 05:40 Albuterol 2.5 Mg/3 Ml Nebu IH Q3HRT PRN Shortness Of Breath Lipase/Protease/Amylase 1 each 01/12/22 15:24 Lipase 10,500/Protease 25,000/Amylase 43,750 (Units) Dr Mariee FEEDTUBE PRN PRN For Clogged Feeding Tube Aspirin 81 mg 01/13/22 11:00 01/16/22 10:56 Aspirin 81 Mg Tab Chew FEEDTUBE 81 mg QDAY ALEXSANDRA Administration Atorvastatin Calcium 80 mg 01/11/22 22:00 01/16/22 22:23 Atorvastatin 40 Mg Tab PO 80 mg QHS ALEXSANDRA Administration Clopidogrel Bisulfate 75 mg 01/11/22 10:00 01/16/22 08:15 Clopidogrel 75 Mg Tab PO 75 mg QDAY ALEXSANDRA Administration Dextrose 50 ml 01/11/22 05:40 Dextrose 50% In Water (25gm) 50 Ml Syringe IV Q30MIN PRN Hypoglycemia Protocol Famotidine 10 mg 01/13/22 11:00 01/16/22 22:22 Famotidine 10 Mg Tab FEEDTUBE 10 mg BID ALEXSANDRA Administration Hydralazine HCl 10 mg 01/11/22 05:54 Hydralazine 20 Mg/1 Ml Inj IV Q6H PRN Blood Pressure Cefepime HCl 1 gm in 100 mls @ 200 mls/hr 01/13/22 18:00 01/16/22 19:40 Cefepime/Ns 1 Gm/100 Ml IV 200 mls/hr QPM ALEXSANDRA Administration Protocol Sodium Chloride 100 mls @ 999 mls/hr 01/13/22 18:00 Nacl 0.9% IV ASHLEY PRN Hypotension Insulin Glargine 10 units 01/12/22 22:00 01/16/22 22:54 Insulin Glargine 100 Units/Ml SUB-Q 10 units QHS ALEXSANDRA Administration Insulin Human Lispro 0 unit 01/11/22 06:00 01/17/22 06:43 Insulin Lispro 100 Unit/Ml SUB-Q 10 unit Q6HR ALEXSANDRA Administration Protocol Midodrine 10 mg 01/12/22 09:03 01/17/22 08:14 Midodrine 10 Mg Tab PO 10 mg TID@0800,1200,1600 ALEXSANDRA Administration Ondansetron HCl 4 mg 01/11/22 05:40 Ondansetron 4 Mg/2 Ml Inj IV Q8H PRN Nausea And Vomiting Prazosin HCl 5 mg 01/15/22 22:00 01/17/22 01:25 Prazosin 5 Mg Cap PO Not Given Q12HR ALEXSANDRA Simple Syrup 15 ml 01/12/22 15:24 Simple Syrup 15 Ml FEEDTUBE PRN PRN Hypoglycemia Simple Syrup 30 ml 01/12/22 15:24 Simple Syrup 15 Ml FEEDTUBE PRN PRN Hypoglycemia Sodium Bicarbonate 325 mg 01/12/22 15:24 Sodium Bicarbonate 325 Mg Tab FEEDTUBE PRN PRN For Clogged Feeding Tube Sodium Chloride 10 ml 01/11/22 10:00 01/17/22 01:30 Sodium Chloride 0.9% 10 Ml Flush Syringe IV 10 ml BID ALEXSANDRA Administration Sodium Chloride 10 ml 01/11/22 05:40 Sodium Chloride 0.9% 10 Ml Flush Syringe IV PRN PRN LINE FLUSH Sodium Hypochlorite 1 applic 01/14/22 10:00 01/16/22 23:00 Sodium Hypochlorite, Dakin's 1/2 Strength (0.25%) 473 Ml Topical Soln TP 1 applicatio BID ALEXSANDRA Administration
[2022-01-17] MEDS: FAMOTIDINE 10 MG TAB FEEDTUBE SCH ×2 (10:56→23:10)
[2022-01-17] MEDS: CLOPIDOGREL 75 MG TAB PO SCH (10:56)
[2022-01-17] MEDS: ASPIRIN 81 MG TAB CHEW FEEDTUBE SCH (10:56)
[2022-01-17] MEDS: SODIUM HYPOCHLORITE, DAKIN'S 1/2 STRENGTH (0.25%) 473 ML TOPICAL SOLN TP SCH ×2 (10:58→23:00)
[2022-01-17 12:50] LABS: Basophils % (Manual) 0 % (0.0-1.8); Total Cells Counted 100
[2022-01-17 12:52] LABS: Platelet Estimate Consistent w Auto
[2022-01-17] MEDS ORDERED: SIMPLE SYRUP 15 ML FEEDTUBE PRN ×2 (16:03)
[2022-01-17] MEDS ORDERED: SODIUM BICARBONATE 325 MG TAB FEEDTUBE PRN (16:03)
[2022-01-17] MEDS ORDERED: LIPASE 10,500/PROTEASE 25,000/AMYLASE 43,750 (UNITS) DR CAP FEEDTUBE PRN (16:03)
--- NOTE | 2022-01-17 16:11 | Progress Note ---
Assessment and Plan This is a 66-year-old male with known past medical history of hypertension, CVA, CHF, DM, dysphagia s/p PEGtube placement admitted for sepsis and MAURI Hospital Course to Date: 01/12: Patient remains encephalopathic but more awake, following simple commands. Still hypotensive this am, probable sepsis. Febrile overnight with worsening leukocytosis this am. Cultures are pending. Continue IVF hydration and empiric IV abx. Multiple wounds, including unstageable sacral decub and MRSA PCR positive. IV Vanco was also initiated, renal dose per pharmacy. ID consulted. Midodrine also added TID. General surgery and wound care was also consulted for wounds eval and treatment. Worsening renal function with hypernatremia and hyperkalemia also noted, continue IVF hydration per nephro. Worsening thrombocytopenia also noted, no s/s of any active bleeding. H&H stable. Hold AC for now, HIT panel ordered. Lantus qhs added for hyperglycemia, continue BG and SSI Q6hrs 01/13: Patient tolerating tube feeds via PEG, unsure why the patient who had a PEG got so dehydrated at the facility, it appears he was tolerating some PO and as a result PEG was not in use at the facility. He is for debridement tomorrow, will continue free water flushes-150CC Q6 Considering he is on HD, will reassess and stop tomorrow if improved, Keep NPO after Midnight Continue abx therapy, Mental status improving some Discharge planning when stable 01/14/ Na level improving, Cr stable after HD x2, cont iv fluid, follow renal recommendation, pending surgical eval for decubitus ulcer 01/15: Plan to hold hemodialysis today, creatinine IVF/stable. Status post bedside debridement of the decubitus ulcer by general surgery. Patient need deep debridement which is planned for tomorrow. N.p.o. after midnight. Continue to follow BMP 01/16: Positive for COVID-19, moved to COVID floor. We will continue to follow inflammatory markers. cancelled deep debridement at the OR today. We will continue to follow. Not a candidate for remdesivir due to renal failure, oxygen requirement has not changed, will hold dexamethasone, also has uncontrolled DM. Continue to follow 01/17: BP remains very soft today, will initiate IV fluid, continue to monitor clinically. Monitor renal function and inflammatory markers. add long acting insulin for hyperglycemia Assessment and Plan #Acute Metabolic Encephalopathy - Multifactorial: probably due to azotemia vs hypernatremia, vs infectious process - on Continous IVF hydration and empiric IV abx - Mentation with mild improvement, following simple commands - Possible CT head tomorrow if no significant improvement in mentation - Frequent reorientation - Avoid sedatives agents - Maintenance of sleep-wake cycle #Hypotension 2/ #Sepsis Vs hypovolemia #H/o Congestive Heart Failure(CHF) - Presented with tachycardia and hypotension - Patient remains hypotension this am, was febrile overnight and worsen leukocytosis this am - 12/14/21 Ech reviewed EF 45-50%, patient appear hypovolemic and dry - Continue IVF hydration per Nephro - Hold home antihypertensive agents - Midodrine added - s/p rehydration with cont. IVF - Continue blood pressure monitor per protocol - Maintain MAP above 65 - Strict intake and output and daily weight #Acute Kidney Injury(MAURI) most likely ATN #Hypernatremia #Hyperkalemia - probably due to hypotension/hypovelemia - Per record Scr. was 1.2 from last admit on 12/2021 - Scr. as high as 5.9, BUN 111 - X1 dose of kayexalate, FWF for hypernatremia - Nephrology on consult, appreciated recommendation - no hydronephrosis on renal US - Strict intake and output - Avoid nephrotoxic medications; Renally dose medications - Val[place] in place, initiated on HD 01/14 #Severe Sepsis- multifactorial #Acute cystitis/UTI # Positive Covid 19 #Infected Sacral Decubitis Ulcer #Leukocytosis #Lactic Acidosis - Presented with tachycardia and hypotension - Patient remains hypotension this am, was febrile overnight and worsen leukocytosis this am - Cultures pending, MRSA PCR positive - With multiple wounds, including malodourous, unstageable sacral decubitis. - On Empiric IV Abx- Rocephin, IV Vanco added, renally dose per pharmacy - ID consulted - Continue to F/U on cultures - General Surgery consulted for possible debridement, wound care eval and treat - Wound care also consulted #Dysphagia s/p PEGtube Placement - Nutrition consulted - Initiated enteral nutrition #Thrombocytopenia - Presented with low plt - Plt count worsen this am - no s/s of any active bleeding - Will hold AC- heparin SubQ for now - H&H stable - HIT panel ordered #Type 2 Diabetes with Hyperglycemia - Continue BG and SSI Q6hrs - Lantus added qHs - While critically ill target blood glucose of 140-180 #GI/DVT Prophylaxis - PPI- Pepcid - SCDs to bilateral lower extremities while in bed Subjective Date of service: 01/17/22 Principal diagnosis: MAURI Interval history: Patient seen and examined. Medical records and medication list reviewed. No acute event overnight noted by the RN. Patient positive for COVID 19, more confused. Patient is tolerating tube feeding diet. Discussed plan of care at bedside with patient's RN. Objective - Exam Narrative Exam: General appearance: Present: no acute distress, cachectic - EENT Eyes: Present: PERRL ENT: hearing intact - Neck Neck: Present: normal ROM - Respiratory Respiratory effort: normal Respiratory: bilateral: diminished - Cardiovascular Rhythm: regular Heart Sounds: Present: S1 & S2 - Extremities Extremities: no ischemia, pulses intact, pulses symmetrical Extremity abnormal: edema - Peripheral Assessment Generalized Edema Type: Non-pitting Edema Degree: 1+ Capillary Refill: < 3 seconds Skin Temperature: Warm Peripheral Pulses: within normal limits - Abdominal General gastrointestinal: soft, non-distended, normal bowel sounds, PEG site noted - Integumentary Integumentary: Present: warm, erythema (With multiple wounds. Unstageable Sacral decubitis Ulcer) - Psychiatric Psychiatric: appropriate mood/affect, - Neurologic Neurologic: moves all extremities, other (AAOX2 but still with some confusion, follow simple commands) - Allied Health Allied health notes reviewed: nursing, case management - Constitutional Vitals: Vital Signs - 12hr 01/17/22 01/17/22 01/17/22 04:59 07:32 08:22 Temperature 97.8 F 99.1 F Pulse Rate 82 103 H Pulse Rate [ 65 Dorsalis Pedis] Respiratory 17 13 16 Rate Blood Pressure 92/56 Blood Pressure 102/57 [Left] O2 Sat by Pulse 95 96 100 Oximetry 01/17/22 01/17/22 10:57 12:41 Temperature 97.3 F L Pulse Rate 68 108 H Pulse Rate [ Dorsalis Pedis] Respiratory 18 Rate Blood Pressure 98/68 84/53 Blood Pressure [Left] O2 Sat by Pulse 99 Oximetry - Labs CBC & Chem 7: 01/19/22 10:48 01/19/22 08:52 Labs: Abnormal lab results 01/13/22 01/16/22 01/16/22 Range/Units 18:40 17:24 20:43 WBC (4.5-11.0) K/mm3 Hgb (11.8-15.2) gm/dl MCH (28-32) pg MCHC (32-34) % RDW (13.2-15.2) % Plt Count (140-440) K/mm3 Seg Neuts % (Manual) (40.0-70.0) % Lymphocytes % (Manual) (13.4-35.0) % Seg Neutrophils # (1.8-7.7) K/mm3 Seg Neutrophils # Man (1.8-7.7) K/mm3 Lymphocytes # (Manual) (1.2-5.4) K/mm3 Potassium 3.3 L D (3.6-5.0) mmol/L BUN 55 H (9-20) mg/dL Creatinine 3.3 H (0.8-1.3) mg/dL Glucose 311 H (75-100) mg/dL POC Glucose 271 H (70-105) mg/dL Calcium 7.9 L (8.4-10.2) mg/dL Ferritin (30.0-300.0) ng/mL Miscellaneous Test Flexitest 1 H 01/16/22 01/17/22 01/17/22 Range/Units 23:49 05:50 07:06 WBC 12.9 H (4.5-11.0) K/mm3 Hgb 10.9 L (11.8-15.2) gm/dl MCH 26 L (28-32) pg MCHC 31 L (32-34) % RDW 23.2 H (13.2-15.2) % Plt Count 46 L (140-440) K/mm3 Seg Neuts % (Manual) 97.0 H (40.0-70.0) % Lymphocytes % (Manual) 0 L (13.4-35.0) % Seg Neutrophils # 11.3 H (1.8-7.7) K/mm3 Seg Neutrophils # Man 12.5 H (1.8-7.7) K/mm3 Lymphocytes # (Manual) 0.0 L (1.2-5.4) K/mm3 Potassium (3.6-5.0) mmol/L BUN (9-20) mg/dL Creatinine (0.8-1.3) mg/dL Glucose (75-100) mg/dL POC Glucose 300 H 388 H (70-105) mg/dL Calcium (8.4-10.2) mg/dL Ferritin (30.0-300.0) ng/mL Miscellaneous Test 01/17/22 01/17/22 01/17/22 Range/Units 07:06 07:06 13:19 WBC (4.5-11.0) K/mm3 Hgb (11.8-15.2) gm/dl MCH (28-32) pg MCHC (32-34) % RDW (13.2-15.2) % Plt Count (140-440) K/mm3 Seg Neuts % (Manual) (40.0-70.0) % Lymphocytes % (Manual) (13.4-35.0) % Seg Neutrophils # (1.8-7.7) K/mm3 Seg Neutrophils # Man (1.8-7.7) K/mm3 Lymphocytes # (Manual) (1.2-5.4) K/mm3 Potassium 3.4 L (3.6-5.0) mmol/L BUN 57 H (9-20) mg/dL Creatinine 3.1 H (0.8-1.3) mg/dL Glucose 440 H (75-100) mg/dL POC Glucose 469 H (70-105) mg/dL Calcium 8.2 L (8.4-10.2) mg/dL Ferritin 785.8 H (30.0-300.0) ng/mL Miscellaneous Test 01/17/22 Range/Units 15:51 WBC (4.5-11.0) K/mm3 Hgb (11.8-15.2) gm/dl MCH (28-32) pg MCHC (32-34) % RDW (13.2-15.2) % Plt Count (140-440) K/mm3 Seg Neuts % (Manual) (40.0-70.0) % Lymphocytes % (Manual) (13.4-35.0) % Seg Neutrophils # (1.8-7.7) K/mm3 Seg Neutrophils # Man (1.8-7.7) K/mm3 Lymphocytes # (Manual) (1.2-5.4) K/mm3 Potassium (3.6-5.0) mmol/L BUN (9-20) mg/dL Creatinine (0.8-1.3) mg/dL Glucose (75-100) mg/dL POC Glucose 477 H (70-105) mg/dL Calcium (8.4-10.2) mg/dL Ferritin (30.0-300.0) ng/mL Miscellaneous Test
[2022-01-17] MEDS ORDERED: D5W/0.9% NACL 1,000 ML IV SCH (17:00)
[2022-01-17] MEDS ORDERED: SODIUM CHLORIDE 0.9% 250ML 250 ML IV ONE (17:05)
[2022-01-17] MEDS ORDERED: SODIUM CHLORIDE 0.9% 1000 ML 1,000 ML IV SCH (17:15)
[2022-01-17] MEDS: CEFEPIME/NS 1 GM/100 ML 1 GM/100 ML BAG IV SCH (17:58)
[2022-01-17] MEDS ORDERED: INSULIN GLARGINE 100 UNITS/ML SUB-Q ONE (18:00)
[2022-01-17 19:36] LABS: C-Reactive Protein 17.7 mg/dL (0.00-1.30)
[2022-01-17 21:46] LABS: C-Reactive Protein 15.8 mg/dL (0.00-1.30)
[2022-01-18] MEDS: INSULIN LISPRO 100 UNIT/ML SUB-Q SCH ×4 (01:47→18:00)
[2022-01-18 08:55] LABS: Calcium 8.6 mg/dL (8.4-10.2)
[2022-01-18 09:03] LABS: Hematocrit 35.4 % (35.5-45.6); Hemoglobin 11.4 gm/dl (11.8-15.2); Mean Corpuscular HGB Conc 32 % (32-34); Mean Corpuscular Volume 84 fl (84-94); Red Blood Count 4.22 M/mm3 (3.65-5.03)
[2022-01-18 09:13] LABS: Platelet Count 62 K/mm3 (140-440); Red Cell Distribution Width 24.4 % (13.2-15.2)
--- NOTE | 2022-01-18 10:07 | Cat Scan Report ---
NONENHANCED CT SCAN OF THE HEAD: INDICATION / CLINICAL INFORMATION: 66 years Male; AMS pt is altered best study possible. TECHNIQUE: Routine CT head without contrast. All CT scans at this location are performed using CT dos e reduction for ALARA by means of automated exposure control. Motion related artifacts obscuring the details in some of the images COMPARISON: CT scan of the head from December 172021 FINDINGS: BRAIN / INTRACRANIAL CONTENTS: No acute hemorrhage, mass effect, midline shift, hydrocephalus, or acu te, large territorial infarct. 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 ORBITS: No significant abnormality of visualized orbits. SINUSES / MASTOIDS: No significant abnormality of the visualized paranasal sinuses or mastoid air yash ls. ADDITIONAL FINDINGS: None. IMPRESSION: No intracerebral hemorrhage or stroke mimics; no acute focal parenchymal lesion; CT findings unchang ed Signer Name: Song Godinez MD Signed: 01/18/2022 10:02 AM Workstation Name: [id number]
[2022-01-18] MEDS: SODIUM HYPOCHLORITE, DAKIN'S 1/2 STRENGTH (0.25%) 473 ML TOPICAL SOLN TP SCH ×2 (11:20→22:07)
[2022-01-18] MEDS: POTASSIUM CHLORIDE ER 10 MEQ TAB PO SCH (11:34)
[2022-01-18] MEDS: CLOPIDOGREL 75 MG TAB PO SCH (11:36)
[2022-01-18] MEDS: MIDODRINE 10 MG TAB PO SCH ×3 (11:36→18:01)
[2022-01-18] MEDS: ASPIRIN 81 MG TAB CHEW FEEDTUBE SCH (11:37)
[2022-01-18] MEDS: FAMOTIDINE 10 MG TAB FEEDTUBE SCH ×2 (11:37→22:11)
[2022-01-18] MEDS: PRAZOSIN 5 MG CAP PO SCH ×2 (11:38→22:08)
[2022-01-18] MEDS ORDERED: VANCOMYCIN/NS 1 GM/250 ML 1 GM/250 ML BAG IV ONE (12:00)
[2022-01-18 12:10] LABS: Basophils % (Manual) 0 % (0.0-1.8); Total Cells Counted 100
[2022-01-18 12:11] LABS: Target Cells Few
[2022-01-18 12:12] LABS: Platelet Estimate Consistent w Auto
--- NOTE | 2022-01-18 12:45 | Progress Note ---
Assessment and Plan Acute metabolic encephalopathy MAURI (acute kidney injury) Hypertension Congestive heart failure Diabetes Hypernatremia SIRS (systemic inflammatory response syndrome Plan: Cr slightly down Na 148, change NS to 1/2 NS at 50 mls/hr Replace K, check Mg no HD today will repeat 24 hours Cr clearance S/P vasc cath placement on 12/14/21 S/P hemodialysis on 12/14/21 and yesterday on 12/15/21 Renal US was negative for obstruction Urine lytes reviewed, has active sediments. KAMILLA, ANCA, C3, C4, anti-GBM, Hepatitis panel, serum free light chains, SPEP- pending Renally dose medications Strict I&O's daily Obtain daily weights Assess dialysis needs daily Monitor for renal recovery Subjective Date of service: 01/18/22 Principal diagnosis: MAURI Interval history: Making some urine. NAD. Objective - Exam Narrative Exam: General appearance: other (awake, no acute distress) EENT: ATNC Neck: no JVD, supple Respiratory: Present: Decreased Breath Sounds, Other Cardiology: S1S2 Gastrointestinal: normoactive bowel sounds Integumentary: warm and dry Neurologic: other (Awake anbd alert) Musculoskeletal: other (No edema) - Vital Signs Vital signs: Vital Signs - 12hr 01/18/22 01/18/22 01/18/22 06:43 09:27 11:38 Temperature 98 F Pulse Rate 105 H 102 H Respiratory 18 Rate Blood Pressure 95/59 Blood Pressure 95/54 [Left] O2 Sat by Pulse 97 98 Oximetry - Lab 01/18/22 07:50 01/18/22 07:50 Most recent lab results Calcium 8.6 mg/dL (8.4-10.2) 01/18/22 07:50 Phosphorus 3.60 mg/dL (2.5-4.5) 01/17/22 07:06 Urine Sodium 58 mmol/L 01/12/22 11:44 Medications & Allergies - Medications Allergies/Adverse Reactions: Allergies No Known Allergies Allergy (Verified 12/09/21 12:16) Home Medications: Home Medications Medication Instructions Recorded Confirmed Last Taken Type cephALEXin [Keflex] 500 mg PO Q6HR 7 Days #28 capsule 12/09/21 01/14/22 Unknown Rx Aspirin [[place] Aspirin EC] 81 mg PO QDAY 12/14/21 01/14/22 Unknown History Atorvastatin [Lipitor] 80 mg PO QHS 12/14/21 01/14/22 Unknown History Dapagliflozin Propanediol [Farxiga] 10 mg PO QDAY 12/14/21 01/14/22 Unknown History Insulin Detemir [Levemir VIAL] 25 unit SQ QHS 12/14/21 01/14/22 Unknown History Insulin Lispro [Admelog] 100 unit SQ ACHS 12/14/21 01/14/22 Unknown History Tamsulosin [Flomax] 0.4 mg PO QDAY 12/14/21 01/14/22 Unknown History carvediloL [Coreg] 3.125 mg PO BID 12/14/21 01/14/22 Unknown History Clopidogrel [Plavix] 75 mg PO QDAY tablet 12/27/21 01/14/22 Unknown Rx Sertraline [Zoloft] 100 mg PO QDAY #30 12/27/21 01/14/22 Unknown Rx Simple Syrup 15 ml FEEDTUBE PRN PRN oral.liqd 12/27/21 01/14/22 Unknown Rx Simple Syrup 30 ml FEEDTUBE PRN PRN oral.liqd 12/27/21 01/14/22 Unknown Rx Sodium Bicarbonate 325 mg FEEDTUBE PRN PRN #30 tablet 12/27/21 01/14/22 Unknown Rx Torsemide [Demadex] 20 mg PO QDAY #30 12/27/21 01/14/22 Unknown Rx Active Medications: Generic Name Dose Route Start Last Admin Trade Name Freq PRN Reason Stop Dose Admin Acetaminophen 650 mg 01/11/22 05:40 01/14/22 22:00 Acetaminophen 325 Mg Tab PO 650 mg Q4H PRN Administration Pain MILD(1-3)/Fever >100.5/ROGERS Albuterol 2.5 mg 01/11/22 05:40 Albuterol 2.5 Mg/3 Ml Nebu IH Q3HRT PRN Shortness Of Breath Lipase/Protease/Amylase 1 each 01/17/22 16:03 Lipase 10,500/Protease 25,000/Amylase 43,750 (Units) Dr Mariee FEEDTUBE PRN PRN For Clogged Feeding Tube Aspirin 81 mg 01/13/22 11:00 01/18/22 11:37 Aspirin 81 Mg Tab Chew FEEDTUBE 81 mg QDAY ALEXSANDRA Administration Atorvastatin Calcium 80 mg 01/11/22 22:00 01/17/22 23:15 Atorvastatin 40 Mg Tab PO 80 mg QHS ALEXSANDRA Administration Clopidogrel Bisulfate 75 mg 01/11/22 10:00 01/18/22 11:36 Clopidogrel 75 Mg Tab PO 75 mg QDAY ALEXSANDRA Administration Dextrose 50 ml 01/11/22 05:40 Dextrose 50% In Water (25gm) 50 Ml Syringe IV Q30MIN PRN Hypoglycemia Protocol Famotidine 10 mg 01/13/22 11:00 01/18/22 11:37 Famotidine 10 Mg Tab FEEDTUBE 10 mg BID ALEXSANDRA Administration Hydralazine HCl 10 mg 01/11/22 05:54 Hydralazine 20 Mg/1 Ml Inj IV Q6H PRN Blood Pressure Cefepime HCl 1 gm in 100 mls @ 200 mls/hr 01/13/22 18:00 01/17/22 17:58 Cefepime/Ns 1 Gm/100 Ml IV 200 mls/hr QPM ALEXSANDRA Administration Protocol Sodium Chloride 100 mls @ 999 mls/hr 01/13/22 18:00 Nacl 0.9% IV ASHLEY PRN Hypotension Sodium Chloride 1,000 mls @ 50 mls/hr 01/17/22 17:15 01/17/22 17:59 Nacl 0.9% 1000 Ml IV 50 mls/hr DIRECT ALEXSANDRA Administration Potassium Chloride 10 meq in 100 mls @ 100 mls/hr 01/18/22 11:00 Kcl 10meq/100ml IV 01/18/22 13:59 Q1H ALEXSANDRA Vancomycin HCl 1 gm in 250 mls @ 167.007 mls/hr 01/18/22 12:00 01/18/22 11:29 Vancomycin/Ns 1 Gm/250 Ml IV 01/18/22 13:29 167.007 mls/hr ONCE ONE Administration Insulin Glargine 15 units 01/18/22 22:00 Insulin Glargine 100 Units/Ml SUB-Q HS ALEXSANDRA Insulin Human Lispro 0 unit 01/11/22 06:00 01/18/22 06:39 Insulin Lispro 100 Unit/Ml SUB-Q 6 unit Q6HR ALEXSANDRA Administration Protocol Midodrine 10 mg 01/12/22 09:03 01/18/22 11:36 Midodrine 10 Mg Tab PO 10 mg TID@0800,1200,1600 ALEXSANDRA Administration Ondansetron HCl 4 mg 01/11/22 05:40 Ondansetron 4 Mg/2 Ml Inj IV Q8H PRN Nausea And Vomiting Potassium Chloride 30 meq 01/18/22 10:00 01/18/22 11:34 Potassium Chloride Er 10 Meq Tab PO 30 meq QDAY ALEXSANDRA Administration Prazosin HCl 5 mg 01/15/22 22:00 01/18/22 11:38 Prazosin 5 Mg Cap PO 5 mg Q12HR ALEXSANDRA Administration Simple Syrup 15 ml 01/17/22 16:03 Simple Syrup 15 Ml FEEDTUBE PRN PRN Hypoglycemia Simple Syrup 30 ml 01/17/22 16:03 Simple Syrup 15 Ml FEEDTUBE PRN PRN Hypoglycemia Sodium Bicarbonate 325 mg 01/17/22 16:03 Sodium Bicarbonate 325 Mg Tab FEEDTUBE PRN PRN For Clogged Feeding Tube Sodium Chloride 10 ml 01/11/22 10:00 01/18/22 11:46 Sodium Chloride 0.9% 10 Ml Flush Syringe IV 10 ml BID ALEXSANDRA Administration Sodium Chloride 10 ml 01/11/22 05:40 Sodium Chloride 0.9% 10 Ml Flush Syringe IV PRN PRN LINE FLUSH Sodium Hypochlorite 1 applic 01/14/22 10:00 01/17/22 23:00 Sodium Hypochlorite, Dakin's 1/2 Strength (0.25%) 473 Ml Topical Soln TP 1 applicatio BID ALEXSANDRA Administration
--- NOTE | 2022-01-18 12:56 | Progress Note ---
Assessment and Plan This is a 66-year-old male with known past medical history of hypertension, CVA, CHF, DM, dysphagia s/p PEGtube placement admitted for sepsis and MAURI Hospital Course to Date: 01/12: Patient remains encephalopathic but more awake, following simple commands. Still hypotensive this am, probable sepsis. Febrile overnight with worsening leukocytosis this am. Cultures are pending. Continue IVF hydration and empiric IV abx. Multiple wounds, including unstageable sacral decub and MRSA PCR positive. IV Vanco was also initiated, renal dose per pharmacy. ID consulted. Midodrine also added TID. General surgery and wound care was also consulted for wounds eval and treatment. Worsening renal function with hypernatremia and hyperkalemia also noted, continue IVF hydration per nephro. Worsening thrombocytopenia also noted, no s/s of any active bleeding. H&H stable. Hold AC for now, HIT panel ordered. Lantus qhs added for hyperglycemia, continue BG and SSI Q6hrs 01/13: Patient tolerating tube feeds via PEG, unsure why the patient who had a PEG got so dehydrated at the facility, it appears he was tolerating some PO and as a result PEG was not in use at the facility. He is for debridement tomorrow, will continue free water flushes-150CC Q6 Considering he is on HD, will reassess and stop tomorrow if improved, Keep NPO after Midnight Continue abx therapy, Mental status improving some Discharge planning when stable 01/14/ Na level improving, Cr stable after HD x2, cont iv fluid, follow renal recommendation, pending surgical eval for decubitus ulcer 01/15: Plan to hold hemodialysis today, creatinine IVF/stable. Status post bedside debridement of the decubitus ulcer by general surgery. Patient need deep debridement which is planned for tomorrow. N.p.o. after midnight. Continue to follow BMP 01/16: Positive for COVID-19, moved to COVID floor. We will continue to follow inflammatory markers. cancelled deep debridement at the OR today. We will continue to follow. Not a candidate for remdesivir due to renal failure, oxygen requirement has not changed, will hold dexamethasone. Continue to follow 01/17: BP remains very soft today, will initiate IV fluid, continue to monitor clinically. Monitor renal function and inflammatory markers. add long acting insulin for hyperglycemia 01/18: K 2.8 today, cont to replete, ordered CT head worsening encephalopathy, cont restrain. Patient remians confused, follow inflammatory markers. follow BMP Assessment and Plan #Acute Metabolic Encephalopathy - Multifactorial: probably due to azotemia vs hypernatremia, vs infectious process - on Continous IVF hydration and empiric IV abx - Mentation with mild improvement, following simple commands - Possible CT head tomorrow if no significant improvement in mentation - Frequent reorientation - Avoid sedatives agents - Maintenance of sleep-wake cycle #Hypotension 2/ #Sepsis Vs hypovolemia #H/o Congestive Heart Failure(CHF) - Presented with tachycardia and hypotension - Patient remains hypotension this am, was febrile overnight and worsen leuk ocytosis this am - 12/14/21 Ech reviewed EF 45-50%, patient appear hypovolemic and dry - Continue IVF hydration per Nephro - Hold home antihypertensive agents - Midodrine added - s/p rehydration with cont. IVF - Continue blood pressure monitor per protocol - Maintain MAP above 65 - Strict intake and output and daily weight #Acute Kidney Injury(MAURI) most likely ATN, placed on HD #Hypernatremia #Hyperkalemia, resolved # hypokalemia - probably due to hypotension/hypovelemia - Per record Scr. was 1.2 from last admit on 12/2021 - Scr. as high as 5.9, BUN 111 - s/p X1 dose of kayexalate, FWF for hypernatremia - Nephrology on consult, appreciated recommendation - no hydronephrosis on renal US - Strict intake and output - Avoid nephrotoxic medications; Renally dose medications - Vallecillo in place, initiated on HD 01/14 - replete electrolytes as needed #Severe Sepsis- multifactorial #Acute cystitis/UTI # Positive Covid 19 #Infected Sacral Decubitis Ulcer #Leukocytosis #Lactic Acidosis - Presented with tachycardia and hypotension - Patient remains hypotension this am, was febrile overnight and worsen leukocytosis this am - Cultures pending, MRSA PCR positive - With multiple wounds, including malodourous, unstageable sacral decubitis. - On Empiric IV Abx- Rocephin, IV Vanco added, renally dose per pharmacy - ID consulted - Continue to F/U on cultures - General Surgery consulted for possible debridement, wound care eval and treat - Wound care also consulted #Dysphagia s/p PEGtube Placement - Nutrition consulted - Initiated enteral nutrition #Thrombocytopenia - Presented with low plt - Plt count worsen this am - no s/s of any active bleeding - Will hold AC- heparin SubQ for now - H&H stable - HIT panel ordered #Type 2 Diabetes with Hyperglycemia - Continue BG and SSI Q6hrs - Lantus added qHs - While critically ill target blood glucose of 140-180 #GI/DVT Prophylaxis - PPI- Pepcid - SCDs to bilateral lower extremities while in bed Subjective Date of service: 01/18/22 Principal diagnosis: MAURI Interval history: Patient seen and examined. Medical records and medication list reviewed. No acute event overnight noted by the RN. Patient positive for COVID 19, more confused. Patient is tolerating tube feeding diet. Discussed plan of care at bedside with patient's RN. Objective - Exam Narrative Exam: General appearance: Present: no acute distress, cachectic - EENT Eyes: Present: PERRL ENT: hearing intact - Neck Neck: Present: normal ROM - Respiratory Respiratory effort: normal Respiratory: bilateral: diminished - Cardiovascular Rhythm: regular Heart Sounds: Present: S1 & S2 - Extremities Extremities: no ischemia, pulses intact, pulses symmetrical Extremity abnormal: edema - Peripheral Assessment Generalized Edema Type: Non-pitting Edema Degree: 1+ Capillary Refill: < 3 seconds Skin Temperature: Warm Peripheral Pulses: within normal limits - Abdominal General gastrointestinal: soft, non-distended, normal bowel sounds, PEG site noted - Integumentary Integumentary: Present: warm, erythema (With multiple wounds. Unstageable Sacral decubitis Ulcer) - Psychiatric Psychiatric: appropriate mood/affect, - Neurologic Neurologic: moves all extremities, other (AAOX2 but still with some confusion, follow simple commands) - Allied Health Allied health notes reviewed: nursing, case management - Constitutional Vitals: Vital Signs - 12hr 01/18/22 01/18/22 01/18/22 06:43 09:27 11:38 Temperature 98 F Pulse Rate 105 H 102 H Respiratory 18 Rate Blood Pressure 95/59 Blood Pressure 95/54 [Left] O2 Sat by Pulse 97 98 Oximetry - Labs CBC & Chem 7: 01/19/22 10:48 01/19/22 08:52 Labs: Abnormal lab results 01/17/22 01/17/22 01/17/22 Range/Units 07:06 13:19 15:51 WBC (4.5-11.0) K/mm3 Hgb (11.8-15.2) gm/dl Hct (35.5-45.6) % MCH (28-32) pg RDW (13.2-15.2) % Plt Count (140-440) K/mm3 Seg Neuts % (Manual) (40.0-70.0) % Lymphocytes % (Manual) (13.4-35.0) % Seg Neutrophils # Man (1.8-7.7) K/mm3 Lymphocytes # (Manual) (1.2-5.4) K/mm3 D-Dimer (0-234) ng/mlDDU Sodium (137-145) mmol/L Potassium (3.6-5.0) mmol/L Chloride (98-107) mmol/L BUN (9-20) mg/dL Creatinine (0.8-1.3) mg/dL Glucose (75-100) mg/dL POC Glucose 469 H 477 H (70-105) mg/dL Ferritin (30.0-300.0) ng/mL Lactate Dehydrogenase 399 H (91-180) units/L C-Reactive Protein 17.70 H (0.00-1.30) mg/dL 01/17/22 01/17/22 01/17/22 Range/Units 19:01 20:00 20:00 WBC (4.5-11.0) K/mm3 Hgb (11.8-15.2) gm/dl Hct (35.5-45.6) % MCH (28-32) pg RDW (13.2-15.2) % Plt Count (140-440) K/mm3 Seg Neuts % (Manual) (40.0-70.0) % Lymphocytes % (Manual) (13.4-35.0) % Seg Neutrophils # Man (1.8-7.7) K/mm3 Lymphocytes # (Manual) (1.2-5.4) K/mm3 D-Dimer 1089.17 H (0-234) ng/mlDDU Sodium (137-145) mmol/L Potassium (3.6-5.0) mmol/L Chloride (98-107) mmol/L BUN (9-20) mg/dL Creatinine (0.8-1.3) mg/dL Glucose 467 H (75-100) mg/dL POC Glucose 391 H (70-105) mg/dL Ferritin (30.0-300.0) ng/mL Lactate Dehydrogenase 336 H (91-180) units/L C-Reactive Protein 15.80 H (0.00-1.30) mg/dL 01/17/22 01/18/22 01/18/22 Range/Units 20:00 01:42 06:29 WBC (4.5-11.0) K/mm3 Hgb (11.8-15.2) gm/dl Hct (35.5-45.6) % MCH (28-32) pg RDW (13.2-15.2) % Plt Count (140-440) K/mm3 Seg Neuts % (Manual) (40.0-70.0) % Lymphocytes % (Manual) (13.4-35.0) % Seg Neutrophils # Man (1.8-7.7) K/mm3 Lymphocytes # (Manual) (1.2-5.4) K/mm3 D-Dimer (0-234) ng/mlDDU Sodium (137-145) mmol/L Potassium (3.6-5.0) mmol/L Chloride (98-107) mmol/L BUN (9-20) mg/dL Creatinine (0.8-1.3) mg/dL Glucose (75-100) mg/dL POC Glucose 344 H 280 H (70-105) mg/dL Ferritin 693.9 H (30.0-300.0) ng/mL Lactate Dehydrogenase (91-180) units/L C-Reactive Protein (0.00-1.30) mg/dL 01/18/22 01/18/22 01/18/22 Range/Units 07:50 07:50 12:31 WBC 14.0 H (4.5-11.0) K/mm3 Hgb 11.4 L (11.8-15.2) gm/dl Hct 35.4 L (35.5-45.6) % MCH 27 L (28-32) pg RDW 24.4 H (13.2-15.2) % Plt Count 62 L (140-440) K/mm3 Seg Neuts % (Manual) 91.0 H (40.0-70.0) % Lymphocytes % (Manual) 3.0 L (13.4-35.0) % Seg Neutrophils # Man 12.7 H (1.8-7.7) K/mm3 Lymphocytes # (Manual) 0.4 L (1.2-5.4) K/mm3 D-Dimer (0-234) ng/mlDDU Sodium 148 H (137-145) mmol/L Potassium 2.8 L* (3.6-5.0) mmol/L Chloride 111.3 H (98-107) mmol/L BUN 66 H (9-20) mg/dL Creatinine 3.0 H (0.8-1.3) mg/dL Glucose 298 H (75-100) mg/dL POC Glucose 274 H (70-105) mg/dL Ferritin (30.0-300.0) ng/mL Lactate Dehydrogenase (91-180) units/L C-Reactive Protein (0.00-1.30) mg/dL
[2022-01-18] MEDS ORDERED: SODIUM CHLORIDE 0.45% 1000 ML 1,000 ML IV SCH (13:00)
[2022-01-18] MEDS: POTASSIUM CHLORIDE 10 MEQ 10 MEQ/100 ML BAG IV SCH ×3 (13:05→17:02)
[2022-01-18] MEDS: CEFEPIME/NS 1 GM/100 ML 1 GM/100 ML BAG IV SCH (17:11)
[2022-01-18] MEDS ORDERED: INSULIN GLARGINE 100 UNITS/ML SUB-Q SCH (22:00)
[2022-01-18] MEDS: INSULIN GLARGINE 100 UNITS/ML SUB-Q SCH (22:10)
[2022-01-19] MEDS: INSULIN LISPRO 100 UNIT/ML SUB-Q SCH ×4 (00:35→17:00)
--- NOTE | 2022-01-19 08:14 | Progress Note ---
Assessment and Plan Assessment: Acute metabolic encephalopathy MAURI (acute kidney injury) Hypertension Congestive heart failure Diabetes Hypernatremia SIRS (systemic inflammatory response syndrome COVID-positive Plan: STAT BMP ordered today. Renal labs reviewed. Serum creatinine 2.9 today and yesterday's was 3.0 24 hour urine collection for creatinine clearance-pending S/P vasc cath placement on 12/14/21. S/P hemodialysis on 12/14/21 and on 12/15/21. No acute indication for HD today. Renal US was negative for obstruction Urine lytes reviewed, has active sediments. KAMILLA, ANCA, C3, C4, anti-GBM, SPEP- pending Hepatitis panel-negative. K/L ratio in range at 1.29. Hypernatremia-sodium level worsen to 150 today. Currently on 1/2NS@ 50 ml/hr, switch fluids to D5W@ 75 ml/hr Free water 250 ml every 4 hours via tube feeds Hypokalemia-replete as needed. On KCl 30 meq po daily Renally dose medications Strict I&O's daily Obtain daily weights Assess dialysis needs daily Monitor for renal recovery Plan of care reviewed by Dr. Nava Subjective Date of service: 01/19/22 Principal diagnosis: MAURI Interval history: Patient now with active COVID-19 positive infection, labs and chart reviewed Objective - Vital Signs Vital signs: Vital Signs - 12hr 01/18/22 01/18/22 01/18/22 20:16 22:00 22:02 Temperature 98.8 F Pulse Rate 97 H Respiratory 18 Rate Blood Pressure Blood Pressure 104/62 [Right] O2 Sat by Pulse 97 96 96 Oximetry 01/18/22 01/19/22 01/19/22 22:08 00:00 05:50 Temperature 98.8 F Pulse Rate 97 H 102 H 104 H Respiratory 18 Rate Blood Pressure 104/62 Blood Pressure 107/57 [Right] O2 Sat by Pulse 98 Oximetry - Lab 01/19/22 10:48 01/19/22 08:52 Most recent lab results Calcium 8.6 mg/dL (8.4-10.2) 01/18/22 07:50 Phosphorus 3.60 mg/dL (2.5-4.5) 01/17/22 07:06 Magnesium 2.40 mg/dL (1.7-2.3) H 01/18/22 12:52 Urine Sodium 58 mmol/L 01/12/22 11:44 Medications & Allergies - Medications Allergies/Adverse Reactions: Allergies heparin Allergy (Verified 01/19/22 10:43) Unknown Home Medications: Home Medications Medication Instructions Recorded Confirmed Last Taken Type cephALEXin [Keflex] 500 mg PO Q6HR 7 Days #28 capsule 12/09/21 01/14/22 Unknown Rx Aspirin [[place] Aspirin EC] 81 mg PO QDAY 12/14/21 01/14/22 Unknown History Atorvastatin [Lipitor] 80 mg PO QHS 12/14/21 01/14/22 Unknown History Dapagliflozin Propanediol [Farxiga] 10 mg PO QDAY 12/14/21 01/14/22 Unknown History Insulin Detemir [Levemir VIAL] 25 unit SQ QHS 12/14/21 01/14/22 Unknown History Insulin Lispro [Admelog] 100 unit SQ ACHS 12/14/21 01/14/22 Unknown History Tamsulosin [Flomax] 0.4 mg PO QDAY 12/14/21 01/14/22 Unknown History carvediloL [Coreg] 3.125 mg PO BID 12/14/21 01/14/22 Unknown History Clopidogrel [Plavix] 75 mg PO QDAY tablet 12/27/21 01/14/22 Unknown Rx Sertraline [Zoloft] 100 mg PO QDAY #30 12/27/21 01/14/22 Unknown Rx Simple Syrup 15 ml FEEDTUBE PRN PRN oral.liqd 12/27/21 01/14/22 Unknown Rx Simple Syrup 30 ml FEEDTUBE PRN PRN oral.liqd 12/27/21 01/14/22 Unknown Rx Sodium Bicarbonate 325 mg FEEDTUBE PRN PRN #30 tablet 12/27/21 01/14/22 Unknown Rx Torsemide [Demadex] 20 mg PO QDAY #30 12/27/21 01/14/22 Unknown Rx Active Medications: Generic Name Dose Route Start Last Admin Trade Name Freq PRN Reason Stop Dose Admin Acetaminophen 650 mg 01/11/22 05:40 01/14/22 22:00 Acetaminophen 325 Mg Tab PO 650 mg Q4H PRN Administration Pain MILD(1-3)/Fever >100.5/ROGERS Albuterol 2.5 mg 01/11/22 05:40 Albuterol 2.5 Mg/3 Ml Nebu IH Q3HRT PRN Shortness Of Breath Lipase/Protease/Amylase 1 each 01/17/22 16:03 Lipase 10,500/Protease 25,000/Amylase 43,750 (Units) Dr Mariee FEEDTUBE PRN PRN For Clogged Feeding Tube Aspirin 81 mg 01/13/22 11:00 01/18/22 11:37 Aspirin 81 Mg Tab Chew FEEDTUBE 81 mg QDAY ALEXSANDRA Administration Atorvastatin Calcium 80 mg 01/11/22 22:00 01/18/22 22:11 Atorvastatin 40 Mg Tab PO 80 mg QHS ALEXSANDRA Administration Clopidogrel Bisulfate 75 mg 01/11/22 10:00 01/18/22 11:36 Clopidogrel 75 Mg Tab PO 75 mg QDAY ALEXSANDRA Administration Dextrose 50 ml 01/11/22 05:40 Dextrose 50% In Water (25gm) 50 Ml Syringe IV Q30MIN PRN Hypoglycemia Protocol Famotidine 10 mg 01/13/22 11:00 01/18/22 22:11 Famotidine 10 Mg Tab FEEDTUBE 10 mg BID ALEXSANDRA Administration Hydralazine HCl 10 mg 01/11/22 05:54 Hydralazine 20 Mg/1 Ml Inj IV Q6H PRN Blood Pressure Cefepime HCl 1 gm in 100 mls @ 200 mls/hr 01/13/22 18:00 01/18/22 17:11 Cefepime/Ns 1 Gm/100 Ml IV 200 mls/hr QPM ALEXSANDRA Administration Protocol Sodium Chloride 100 mls @ 999 mls/hr 01/13/22 18:00 Nacl 0.9% IV ASHLEY PRN Hypotension Sodium Chloride 1,000 mls @ 50 mls/hr 01/18/22 13:00 Nacl 0.45% 1000 Ml IV DIRECT ALEXSANDRA Insulin Glargine 15 units 01/18/22 22:00 01/18/22 22:10 Insulin Glargine 100 Units/Ml SUB-Q 15 units HS ALEXSANDRA Administration Insulin Human Lispro 0 unit 01/11/22 06:00 01/19/22 05:49 Insulin Lispro 100 Unit/Ml SUB-Q 6 unit Q6HR ALEXSANDRA Administration Protocol Midodrine 10 mg 01/12/22 09:03 01/18/22 18:01 Midodrine 10 Mg Tab PO 10 mg TID@0800,1200,1600 ALEXSANDRA Administration Ondansetron HCl 4 mg 01/11/22 05:40 Ondansetron 4 Mg/2 Ml Inj IV Q8H PRN Nausea And Vomiting Potassium Chloride 30 meq 01/18/22 10:00 01/18/22 11:34 Potassium Chloride Er 10 Meq Tab PO 30 meq QDAY ALEXSANDRA Administration Prazosin HCl 5 mg 01/15/22 22:00 01/18/22 22:08 Prazosin 5 Mg Cap PO Not Given Q12HR ALEXSANDRA Simple Syrup 15 ml 01/17/22 16:03 Simple Syrup 15 Ml FEEDTUBE PRN PRN Hypoglycemia Simple Syrup 30 ml 01/17/22 16:03 Simple Syrup 15 Ml FEEDTUBE PRN PRN Hypoglycemia Sodium Bicarbonate 325 mg 01/17/22 16:03 Sodium Bicarbonate 325 Mg Tab FEEDTUBE PRN PRN For Clogged Feeding Tube Sodium Chloride 10 ml 01/11/22 10:00 01/18/22 22:11 Sodium Chloride 0.9% 10 Ml Flush Syringe IV 10 ml BID ALEXSANDRA Administration Sodium Chloride 10 ml 01/11/22 05:40 Sodium Chloride 0.9% 10 Ml Flush Syringe IV PRN PRN LINE FLUSH Sodium Hypochlorite 1 applic 01/14/22 10:00 01/18/22 22:07 Sodium Hypochlorite, Dakin's 1/2 Strength (0.25%) 473 Ml Topical Soln TP 1 applicatio BID ALEXSANDRA Administration
[2022-01-19 09:23] LABS: Calcium 8.8 mg/dL (8.4-10.2)
[2022-01-19] MEDS: POTASSIUM CHLORIDE ER 10 MEQ TAB PO SCH (09:46)
[2022-01-19] MEDS: ASPIRIN 81 MG TAB CHEW FEEDTUBE SCH (09:47)
[2022-01-19] MEDS: FAMOTIDINE 10 MG TAB FEEDTUBE SCH ×2 (09:47→22:54)
[2022-01-19] MEDS: CLOPIDOGREL 75 MG TAB PO SCH (09:47)
[2022-01-19] MEDS: PRAZOSIN 5 MG CAP PO SCH ×2 (09:47→23:08)
[2022-01-19] MEDS: SODIUM HYPOCHLORITE, DAKIN'S 1/2 STRENGTH (0.25%) 473 ML TOPICAL SOLN TP SCH ×2 (09:48→23:40)
[2022-01-19] MEDS: MIDODRINE 10 MG TAB PO SCH ×3 (09:48→16:32)
--- NOTE | 2022-01-19 10:27 | Progress Note ---
Assessment and Plan Cultures: MRSA nasal PCR: Positive 01/11/2022 blood culture: No growth 01/11/2022 urine culture: Enterobacter, Enterococcus (VRE - faecium) 01/14/2022 decubitus OR culture: Proteus mirabilis A/P: 66-year-old male with hypertension, CHF, diabetes, prior CVA, status post PEG tube, indwelling Vallecillo catheter, jail resident: #Severe sepsis: Multifactorial, likely secondary to UTI, infected sacral decubitus ulcer. UA showed significant pyuria. Blood cultures with no growth. #COVID-19: initial CXR without pneumonia. Weaned off oxygen. WBC 14.0, D-dimer 1089, CRP 15.8, procalcitonin 0.57, ferritin 693, LDH 336. C. difficile PCR: Negative #UTI: indwelling Vallecillo. UA with pyuria, culture with Enterobacter, Enterococcus #Necrotic sacral decubitus ulcer with eschar. Underwent debridement by Dr. Small on 01/14/2022. CT without any evidence of osteomyelitis. #Acute renal failure: renally adjust abx. Nephrology following, on HD. #Prior CVA, bedbound status with indwelling Vallecillo catheter, PEG tube #Acute encephalopathy: Admitted with severe hypernatremia. #Acute thrombocytopenia: monitor. #Protein calorie malnutrition Recs: -continue renally dosed IV cefepime -Vancomycin switched to IV daptomycin due to VRE. Avoiding linezolid due to thrombocytopenia. -Due to renal function, not a candidate for Remdesivir. -rechecking CRP. Patient on room air, so hold off on steroids for now -Wound care and offloading -Guarded prognosis Tara Ramos MD, FACP, [facility] ([facility] O: [phone] F: [phone] C: [phone] Subjective Date of service: 01/19/22 Principal diagnosis: MAURI Interval history: No fever. Weaned to room air. Objective - Exam Narrative Exam: Physical Exam: deferred due to COVID-19 positivity, reduce risk of transmission - Constitutional Vitals: Vital Signs Temp Pulse Resp BP Pulse Ox 98.1 F 112 H 20 115/57 96 01/19/22 09:46 01/19/22 09:47 01/19/22 09:46 01/19/22 09:46 01/19/22 09:46 Temperature -Last 24 Hours Temperature 98.1 F Temperature 98.8 F Temperature 98.8 F - Labs CBC & Chem 7: 01/18/22 07:50 01/19/22 08:52 Labs: Abnormal lab results 01/18/22 01/18/22 01/18/22 Range/Units 07:50 12:31 12:52 Seg Neuts % (Manual) 91.0 H (40.0-70.0) % Lymphocytes % (Manual) 3.0 L (13.4-35.0) % Seg Neutrophils # Man 12.7 H (1.8-7.7) K/mm3 Lymphocytes # (Manual) 0.4 L (1.2-5.4) K/mm3 Sodium (137-145) mmol/L Potassium (3.6-5.0) mmol/L Chloride (98-107) mmol/L BUN (9-20) mg/dL Creatinine (0.8-1.3) mg/dL Glucose (75-100) mg/dL POC Glucose 274 H (70-105) mg/dL Magnesium 2.40 H (1.7-2.3) mg/dL 01/18/22 01/18/22 01/19/22 Range/Units 17:35 22:05 00:29 Seg Neuts % (Manual) (40.0-70.0) % Lymphocytes % (Manual) (13.4-35.0) % Seg Neutrophils # Man (1.8-7.7) K/mm3 Lymphocytes # (Manual) (1.2-5.4) K/mm3 Sodium (137-145) mmol/L Potassium (3.6-5.0) mmol/L Chloride (98-107) mmol/L BUN (9-20) mg/dL Creatinine (0.8-1.3) mg/dL Glucose (75-100) mg/dL POC Glucose 294 H 279 H 274 H (70-105) mg/dL Magnesium (1.7-2.3) mg/dL 01/19/22 01/19/22 Range/Units 05:41 08:52 Seg Neuts % (Manual) (40.0-70.0) % Lymphocytes % (Manual) (13.4-35.0) % Seg Neutrophils # Man (1.8-7.7) K/mm3 Lymphocytes # (Manual) (1.2-5.4) K/mm3 Sodium 150 H (137-145) mmol/L Potassium 3.3 L (3.6-5.0) mmol/L Chloride 113.1 H (98-107) mmol/L BUN 70 H (9-20) mg/dL Creatinine 2.9 H (0.8-1.3) mg/dL Glucose 248 H (75-100) mg/dL POC Glucose 264 H (70-105) mg/dL Magnesium (1.7-2.3) mg/dL
[2022-01-19 11:35] LABS: Hematocrit 36.3 % (35.5-45.6); Hemoglobin 11.8 gm/dl (11.8-15.2); Mean Corpuscular HGB Conc 32 % (32-34); Mean Corpuscular Volume 84 fl (84-94); Red Blood Count 4.34 M/mm3 (3.65-5.03)
[2022-01-19 11:39] LABS: Platelet Count 75 K/mm3 (140-440); Red Cell Distribution Width 23.6 % (13.2-15.2)
[2022-01-19] MEDS ORDERED: DEXTROSE 5% IN WATER 1,000 ML IV SCH (12:00)
--- NOTE | 2022-01-19 13:40 | Progress Note ---
Assessment and Plan This is a 66-year-old male with known past medical history of hypertension, CVA, CHF, DM, dysphagia s/p PEGtube placement admitted for sepsis and MAURI Hospital Course to Date: 01/12: Patient remains encephalopathic but more awake, following simple commands. Still hypotensive this am, probable sepsis. Febrile overnight with worsening leukocytosis this am. Cultures are pending. Continue IVF hydration and empiric IV abx. Multiple wounds, including unstageable sacral decub and MRSA PCR positive. IV Vanco was also initiated, renal dose per pharmacy. ID consulted. Midodrine also added TID. General surgery and wound care was also consulted for wounds eval and treatment. Worsening renal function with hypernatremia and hyperkalemia also noted, continue IVF hydration per nephro. Worsening thrombocytopenia also noted, no s/s of any active bleeding. H&H stable. Hold AC for now, HIT panel ordered. Lantus qhs added for hyperglycemia, continue BG and SSI Q6hrs 01/13: Patient tolerating tube feeds via PEG, unsure why the patient who had a PEG got so dehydrated at the facility, it appears he was tolerating some PO and as a result PEG was not in use at the facility. He is for debridement tomorrow, will continue free water flushes-150CC Q6 Considering he is on HD, will reassess and stop tomorrow if improved, Keep NPO after Midnight Continue abx therapy, Mental status improving some Discharge planning when stable 01/14/ Na level improving, Cr stable after HD x2, cont iv fluid, follow renal recommendation, pending surgical eval for decubitus ulcer 01/15: Plan to hold hemodialysis today, creatinine IVF/stable. Status post bedside debridement of the decubitus ulcer by general surgery. Patient need deep debridement which is planned for tomorrow. N.p.o. after midnight. Continue to follow BMP 01/16: Positive for COVID-19, moved to COVID floor. We will continue to follow inflammatory markers. cancelled deep debridement at the OR today. We will continue to follow. Not a candidate for remdesivir due to renal failure, oxygen requirement has not changed, will hold dexamethasone. Continue to follow 01/17: BP remains very soft today, will initiate IV fluid, continue to monitor clinically. Monitor renal function and inflammatory markers. add long acting insulin for hyperglycemia 01/18: K 2.8 today, cont to replete, ordered CT head worsening encephalopathy, cont restrain. Patient remians confused, follow inflammatory markers. follow BMP 01/19: patient on RA, remains confused. Na 150 today, changed iv fluid to D5w and increased free water with TF. follow inflammatory markers. D-dimer >1000, will change heparin to eliquis 2.[address] head w/o any changes Assessment and Plan #Acute Metabolic Encephalopathy - Multifactorial: probably due to azotemia vs hypernatremia, vs infectious process - on Continous IVF hydration and empiric IV abx - Mentation with mild improvement, following simple commands - CT head no changes - Frequent reorientation - Avoid sedatives agents - Maintenance of sleep-wake cycle #Hypotension 2/2 #Sepsis Vs hypovolemia #H/o Congestive Heart Failure(CHF) - Presented with tachycardia and hypotension - Patient remains hypotension this am, was febrile overnight and worsen leukocytosis this am - 12/14/21 Ech reviewed EF 45-50%, patient appear hypovolemic and dry - Continue IVF hydration per Nephro - Hold home antihypertensive agents - Midodrine added - cont. IVF, increased free water with TF for hypernatremia - Continue blood pressure monitor per protocol - Maintain MAP above 65 - Strict intake and output and daily weight #Acute Kidney Injury(MAURI) most likely ATN, placed on HD #Hypernatremia #Hyperkalemia, resolved # hypokalemia - probably due to hypotension/hypovelemia - Per record Scr. was 1.2 from last admit on 12/2021 - Scr. as high as 5.9, BUN 111 - s/p X1 dose of kayexalate, FWF for hypernatremia - Nephrology on consult, appreciated recommendation - no hydronephrosis on renal US - Strict intake and output - Avoid nephrotoxic medications; Renally dose medications - Vallecillo in place, initiated on HD 01/14 - replete electrolytes as needed #Severe Sepsis- multifactorial #Acute cystitis/UTI # Positive Covid 19 #Infected Sacral Decubitis Ulcer #Leukocytosis #Lactic Acidosis - Presented with tachycardia and hypotension - Patient remains hypotension this am, was febrile overnight and worsen leukocytosis this am - Cultures pending, MRSA PCR positive - With multiple wounds, including malodourous, unstageable sacral decubitis. - On Empiric IV Abx- Rocephin, IV Vanco added, renally dose per pharmacy - ID consulted - Continue to F/U on cultures - General Surgery consulted for possible debridement, wound care eval and treat - Wound care also consulted #Dysphagia s/p PEGtube Placement - Nutrition consulted - Initiated enteral nutrition #Thrombocytopenia - Presented with low plt - Plt count worsen this am - no s/s of any active bleeding - Will hold AC- heparin SubQ for now - H&H stable - HIT panel ordered #Type 2 Diabetes with Hyperglycemia - Continue BG and SSI Q6hrs - Lantus added qHs - While critically ill target blood glucose of 140-180 #GI/DVT Prophylaxis - PPI- Pepcid - SCDs to bilateral lower extremities while in bed Subjective Date of service: 01/19/22 Principal diagnosis: MAURI Interval history: Patient seen and examined. Medical records and medication list reviewed. No acute event overnight noted by the RN. Patient positive for COVID 19, more confused. Patient is tolerating tube feeding diet. Discussed plan of care at bedside with patient's RN. Objective - Exam Narrative Exam: General appearance: Present: no acute distress, cachectic - EENT Eyes: Present: PERRL ENT: hearing intact - Neck Neck: Present: normal ROM - Respiratory Respiratory effort: normal Respiratory: bilateral: diminished - Cardiovascular Rhythm: regular Heart Sounds: Present: S1 & S2 - Extremities Extremities: no ischemia, pulses intact, pulses symmetrical Extremity abnormal: edema - Peripheral Assessment Generalized Edema Type: Non-pitting Edema Degree: 1+ Capillary Refill: < 3 seconds Skin Temperature: Warm Peripheral Pulses: within normal limits - Abdominal General gastrointestinal: soft, non-distended, normal bowel sounds, PEG site noted - Integumentary Integumentary: Present: warm, erythema (With multiple wounds. Unstageable Sacral decubitis Ulcer) - Psychiatric Psychiatric: appropriate mood/affect, - Neurologic Neurologic: moves all extremities, other (AAOX2 but still with some confusion, follow simple commands) - Allied Health Allied health notes reviewed: nursing, case management - Constitutional Vitals: Vital Signs - 12hr 01/19/22 01/19/22 01/19/22 05:50 09:46 09:47 Temperature 98.8 F 98.1 F Pulse Rate 104 H 112 H 112 H Respiratory 18 20 Rate Blood Pressure 115/57 Blood Pressure 107/57 [Right] O2 Sat by Pulse 98 96 Oximetry 01/19/22 10:00 Temperature Pulse Rate Respiratory Rate Blood Pressure Blood Pressure [Right] O2 Sat by Pulse 96 Oximetry - Labs CBC & Chem 7: 01/19/22 10:48 01/19/22 08:52 Labs: Abnormal lab results 01/18/22 01/18/22 01/18/22 Range/Units 12:52 17:35 22:05 WBC (4.5-11.0) K/mm3 MCH (28-32) pg RDW (13.2-15.2) % Plt Count (140-440) K/mm3 Sodium (137-145) mmol/L Potassium (3.6-5.0) mmol/L Chloride (98-107) mmol/L BUN (9-20) mg/dL Creatinine (0.8-1.3) mg/dL Glucose (75-100) mg/dL POC Glucose 294 H 279 H (70-105) mg/dL Magnesium 2.40 H (1.7-2.3) mg/dL 01/19/22 01/19/22 01/19/22 Range/Units 00:29 05:41 08:52 WBC (4.5-11.0) K/mm3 MCH (28-32) pg RDW (13.2-15.2) % Plt Count (140-440) K/mm3 Sodium 150 H (137-145) mmol/L Potassium 3.3 L (3.6-5.0) mmol/L Chloride 113.1 H (98-107) mmol/L BUN 70 H (9-20) mg/dL Creatinine 2.9 H (0.8-1.3) mg/dL Glucose 248 H (75-100) mg/dL POC Glucose 274 H 264 H (70-105) mg/dL Magnesium (1.7-2.3) mg/dL 01/19/22 01/19/22 Range/Units 10:48 11:59 WBC 15.6 H (4.5-11.0) K/mm3 MCH 27 L (28-32) pg RDW 23.6 H (13.2-15.2) % Plt Count 75 L (140-440) K/mm3 Sodium (137-145) mmol/L Potassium (3.6-5.0) mmol/L Chloride (98-107) mmol/L BUN (9-20) mg/dL Creatinine (0.8-1.3) mg/dL Glucose (75-100) mg/dL POC Glucose 264 H (70-105) mg/dL Magnesium (1.7-2.3) mg/dL
[2022-01-19] MEDS: CEFEPIME/NS 1 GM/100 ML 1 GM/100 ML BAG IV SCH (17:00)
--- NOTE | 2022-01-19 17:03 | Progress Note ---
Assessment and Plan pt appears more aware of surroundings. Nursing reports lupis bm. Wound irrig with dakins solution ordered bid and prn fecal soilage. Stool for C diff requested. Cont signs of deep tissue necrosis on wound exam pt will need to go to or for d ebridement. Patient with sacral decubitus extent of ulcer likely to the level of the periosteum on the sacrum. Unable to do further debridement because of COVID positive finding. Current policy is to wait 7 days after the COVID is discovered. The seventh days this coming . Continue local wound care and IV antibiotics. Subjective Date of service: 01/19/22 Patient Reports: Positive: no new complaints Narrative: Patient with sacral decubitus extent of ulcer likely to the level of the periost eum on the sacrum. Unable to do further debridement because of COVID positive finding. Current policy is to wait 7 days after the COVID is discovered. The seventh days this coming . Continue local wound care and IV antibiotics. Objective Vital Signs - 12hr 01/19/22 01/19/22 01/19/22 05:50 09:46 09:47 Temperature 98.8 F 98.1 F Pulse Rate 104 H 112 H 112 H Respiratory 18 20 Rate Blood Pressure 115/57 Blood Pressure 107/57 [Right] O2 Sat by Pulse 98 96 Oximetry 01/19/22 10:00 Temperature Pulse Rate Respiratory Rate Blood Pressure Blood Pressure [Right] O2 Sat by Pulse 96 Oximetry - Labs 01/19/22 10:48 01/19/22 08:52 Diabetes panel 01/19/22 Range/Units 08:52 Sodium 150 H (137-145) mmol/L Potassium 3.3 L (3.6-5.0) mmol/L Chloride 113.1 H (98-107) mmol/L Carbon Dioxide 27 (22-30) mmol/L BUN 70 H (9-20) mg/dL Creatinine 2.9 H (0.8-1.3) mg/dL Glucose 248 H (75-100) mg/dL Calcium 8.8 (8.4-10.2) mg/dL Calcium panel 01/19/22 Range/Units 08:52 Calcium 8.8 (8.4-10.2) mg/dL Pituitary panel 01/19/22 Range/Units 08:52 Sodium 150 H (137-145) mmol/L Potassium 3.3 L (3.6-5.0) mmol/L Chloride 113.1 H (98-107) mmol/L Carbon Dioxide 27 (22-30) mmol/L BUN 70 H (9-20) mg/dL Creatinine 2.9 H (0.8-1.3) mg/dL Glucose 248 H (75-100) mg/dL Calcium 8.8 (8.4-10.2) mg/dL Adrenal panel 01/19/22 Range/Units 08:52 Sodium 150 H (137-145) mmol/L Potassium 3.3 L (3.6-5.0) mmol/L Chloride 113.1 H (98-107) mmol/L Carbon Dioxide 27 (22-30) mmol/L BUN 70 H (9-20) mg/dL Creatinine 2.9 H (0.8-1.3) mg/dL Glucose 248 H (75-100) mg/dL Calcium 8.8 (8.4-10.2) mg/dL
[2022-01-19 18:18] LABS: Myeloperoxidase Antibody <1.0 AI (<1.0)
[2022-01-19] MEDS: ASCORBIC ACID 500 MG TAB PO SCH (22:02)
[2022-01-19] MEDS: ZINC SULFATE 220 MG CAP PO SCH (22:03)
[2022-01-19] MEDS: INSULIN GLARGINE 100 UNITS/ML SUB-Q SCH (22:52)
[2022-01-19] MEDS: ACETAMINOPHEN 325 MG TAB PO PRN (23:03)
[2022-01-20] MEDS: INSULIN LISPRO 100 UNIT/ML SUB-Q SCH ×5 (01:00→23:55)
[2022-01-20 05:03] LABS: Hematocrit 33.5 % (35.5-45.6); Hemoglobin 10.6 gm/dl (11.8-15.2); Mean Corpuscular HGB Conc 32 % (32-34); Mean Corpuscular Volume 85 fl (84-94); Red Blood Count 3.93 M/mm3 (3.65-5.03)
[2022-01-20 05:12] LABS: Platelet Count 70 K/mm3 (140-440); Red Cell Distribution Width 25.4 % (13.2-15.2)
[2022-01-20 05:17] LABS: Calcium 9.3 mg/dL (8.4-10.2)
[2022-01-20 07:03] LABS: Anisocytosis 2+; Band Neutrophils # (Manual) 0.1 K/mm3; Basophils % (Manual) 0 % (0.0-1.8); Hypochromasia 1+; Total Cells Counted 100
[2022-01-20 07:04] LABS: Platelet Estimate Consistent w Auto
--- NOTE | 2022-01-20 10:37 | Progress Note ---
Assessment and Plan Cultures: MRSA nasal PCR: Positive 01/11/2022 blood culture: No growth 01/11/2022 urine culture: Enterobacter, Enterococcus (VRE - faecium) 01/14/2022 decubitus OR culture: Proteus mirabilis A/P: 66-year-old male with hypertension, CHF, diabetes, prior CVA, status post PEG tube, indwelling Vallecillo catheter, [facility] resident: #Severe sepsis: Multifactorial, likely secondary to UTI, infected sacral decubitus ulcer. UA showed significant pyuria. Blood cultures with no growth. #COVID-19: initial CXR without pneumonia. Weaned off oxygen. WBC 14.0, D-dimer 1089, CRP 15.8, procalcitonin 0.57, ferritin 693, LDH 336. C. difficile PCR: Negative #UTI: indwelling Vallecillo. UA with pyuria, culture with Enterobacter, Enterococcus #Necrotic sacral decubitus ulcer with eschar. Underwent debridement by Dr. Small on 01/14/2022. CT without any evidence of osteomyelitis. #Acute renal failure: renally adjust abx. Nephrology following, on HD. #Prior CVA, bedbound status with indwelling Vallecillo catheter, PEG tube #Acute encephalopathy: Admitted with severe hypernatremia. #Acute thrombocytopenia: monitor. #Protein calorie malnutrition Recs: -continue renally dosed IV cefepime, IV daptomycin due to VRE. Avoiding linezolid due to thrombocytopenia. -Due to renal function, not a candidate for Remdesivir. -repeat CRP improving, down to 8.0. Patient on room air, so hold off on steroids for now -continue wound care and offloading. Surgery following, possible additional debridement later this week -Guarded prognosis Tara Ramos MD, FACP, [facility] ([facility] O: [phone] F: [phone] C: [phone] Subjective Date of service: 01/20/22 Principal diagnosis: MAURI Interval history: No fever. Remains on room air. Repeat CRP 8.0 Objective - Exam Narrative Exam: Physical Exam: deferred due to COVID-19 positivity, reduce risk of transmission - Constitutional Vitals: Vital Signs Temp Pulse Resp BP Pulse Ox 98.1 F 102 H 20 124/78 98 01/19/22 09:46 01/20/22 00:00 01/19/22 09:46 01/19/22 23:08 01/20/22 07:54 - Labs CBC & Chem 7: 01/20/22 04:39 01/20/22 04:39 Labs: Abnormal lab results 01/19/22 01/19/22 01/19/22 Range/Units 10:48 11:59 16:47 WBC 15.6 H (4.5-11.0) K/mm3 Hgb (11.8-15.2) gm/dl Hct (35.5-45.6) % MCH 27 L (28-32) pg RDW 23.6 H (13.2-15.2) % Plt Count 75 L (140-440) K/mm3 Seg Neuts % (Manual) (40.0-70.0) % Lymphocytes % (Manual) (13.4-35.0) % Seg Neutrophils # Man (1.8-7.7) K/mm3 Lymphocytes # (Manual) (1.2-5.4) K/mm3 D-Dimer (0-234) ng/mlDDU Sodium (137-145) mmol/L Chloride (98-107) mmol/L BUN (9-20) mg/dL Creatinine (0.8-1.3) mg/dL Glucose (75-100) mg/dL POC Glucose 264 H 261 H (70-105) mg/dL Ferritin (30.0-300.0) ng/mL Lactate Dehydrogenase (91-180) units/L Total Creatine Kinase (55-170) units/L C-Reactive Protein (0.00-1.30) mg/dL 01/19/22 01/20/22 01/20/22 Range/Units 22:50 01:47 04:39 WBC (4.5-11.0) K/mm3 Hgb (11.8-15.2) gm/dl Hct (35.5-45.6) % MCH (28-32) pg RDW (13.2-15.2) % Plt Count (140-440) K/mm3 Seg Neuts % (Manual) (40.0-70.0) % Lymphocytes % (Manual) (13.4-35.0) % Seg Neutrophils # Man (1.8-7.7) K/mm3 Lymphocytes # (Manual) (1.2-5.4) K/mm3 D-Dimer 940.59 H (0-234) ng/mlDDU Sodium (137-145) mmol/L Chloride (98-107) mmol/L BUN (9-20) mg/dL Creatinine (0.8-1.3) mg/dL Glucose (75-100) mg/dL POC Glucose 266 H 310 H (70-105) mg/dL Ferritin (30.0-300.0) ng/mL Lactate Dehydrogenase (91-180) units/L Total Creatine Kinase (55-170) units/L C-Reactive Protein (0.00-1.30) mg/dL 01/20/22 01/20/22 01/20/22 Range/Units 04:39 04:39 04:39 WBC (4.5-11.0) K/mm3 Hgb (11.8-15.2) gm/dl Hct (35.5-45.6) % MCH (28-32) pg RDW (13.2-15.2) % Plt Count (140-440) K/mm3 Seg Neuts % (Manual) (40.0-70.0) % Lymphocytes % (Manual) (13.4-35.0) % Seg Neutrophils # Man (1.8-7.7) K/mm3 Lymphocytes # (Manual) (1.2-5.4) K/mm3 D-Dimer (0-234) ng/mlDDU Sodium 155 H (137-145) mmol/L Chloride 118.1 H (98-107) mmol/L BUN 82 H (9-20) mg/dL Creatinine 2.6 H (0.8-1.3) mg/dL Glucose 346 H (75-100) mg/dL POC Glucose (70-105) mg/dL Ferritin 560.7 H (30.0-300.0) ng/mL Lactate Dehydrogenase 334 H (91-180) units/L Total Creatine Kinase (55-170) units/L C-Reactive Protein 8.00 H (0.00-1.30) mg/dL 01/20/22 01/20/22 01/20/22 Range/Units 04:39 04:39 06:54 WBC 11.7 H (4.5-11.0) K/mm3 Hgb 10.6 L (11.8-15.2) gm/dl Hct 33.5 L (35.5-45.6) % MCH 27 L (28-32) pg RDW 25.4 H (13.2-15.2) % Plt Count 70 L (140-440) K/mm3 Seg Neuts % (Manual) 87.0 H (40.0-70.0) % Lymphocytes % (Manual) 4.0 L (13.4-35.0) % Seg Neutrophils # Man 10.2 H (1.8-7.7) K/mm3 Lymphocytes # (Manual) 0.5 L (1.2-5.4) K/mm3 D-Dimer (0-234) ng/mlDDU Sodium (137-145) mmol/L Chloride (98-107) mmol/L BUN (9-20) mg/dL Creatinine (0.8-1.3) mg/dL Glucose (75-100) mg/dL POC Glucose 309 H (70-105) mg/dL Ferritin (30.0-300.0) ng/mL Lactate Dehydrogenase (91-180) units/L Total Creatine Kinase 15 L (55-170) units/L C-Reactive Protein (0.00-1.30) mg/dL
[2022-01-20] MEDS: PRAZOSIN 5 MG CAP PO SCH ×2 (10:44→22:28)
[2022-01-20] MEDS: ZINC SULFATE 220 MG CAP PO SCH ×2 (10:44→22:16)
[2022-01-20] MEDS: FAMOTIDINE 10 MG TAB FEEDTUBE SCH ×2 (10:44→22:16)
[2022-01-20] MEDS: CHOLECALCIFEROL (VIT D3) 5,000 UNIT TAB PO SCH (10:44)
[2022-01-20] MEDS: ASPIRIN 81 MG TAB CHEW FEEDTUBE SCH (10:44)
[2022-01-20] MEDS: POTASSIUM CHLORIDE ER 10 MEQ TAB PO SCH (10:44)
[2022-01-20] MEDS: ASCORBIC ACID 500 MG TAB PO SCH ×2 (10:44→22:26)
[2022-01-20] MEDS: CLOPIDOGREL 75 MG TAB PO SCH (10:44)
[2022-01-20] MEDS: SODIUM HYPOCHLORITE, DAKIN'S 1/2 STRENGTH (0.25%) 473 ML TOPICAL SOLN TP SCH ×2 (10:45→22:14)
[2022-01-20] MEDS: MIDODRINE 10 MG TAB PO SCH ×3 (10:45→16:58)
--- NOTE | 2022-01-20 14:02 | Progress Note ---
Assessment and Plan Assessment: Acute metabolic encephalopathy MAURI (acute kidney injury) Hypertension Congestive heart failure Diabetes Hypernatremia SIRS (systemic inflammatory response syndrome COVID-positive Plan: Renal labs reviewed. Serum creatinine 2.6 today and yesterday's was 2.9 S/P vasc cath placement on 12/14/21. S/P hemodialysis on 12/14/21 and on 12/15/21. No acute indication for HD today. Ordered 24 hour urine collection for creatinine clearance Renal US was negative for obstruction Urine lytes reviewed, has active sediments. KAMILLA, ANCA, C3, C4, anti-GBM, SPEP- pending Hepatitis panel-negative. K/L ratio in range at 1.29. Hypernatremia-sodium level worsen to 155 today. Start 1/2NS@ 125 ml/hr Re-enforced free water 250 ml every 4 hours via tube feeds Hypokalemia-replete as needed. On KCl 30 meq po daily Renally dose medications Strict I&O's daily Obtain daily weights Assess dialysis needs daily Monitor for renal recovery Plan of care reviewed by Dr. Nava Subjective Date of service: 01/20/22 Principal diagnosis: MAURI Interval history: Patient now with active COVID-19 positive infection, labs and chart reviewed Objective - Vital Signs Vital signs: Vital Signs - 12hr 01/20/22 01/20/22 01/20/22 06:41 06:42 07:54 Temperature 97.4 F L Pulse Rate 103 H Respiratory 18 Rate Blood Pressure 98/60 O2 Sat by Pulse 99 98 Oximetry 01/20/22 01/20/22 11:35 12:41 Temperature 98.3 F Pulse Rate 98 H Respiratory 20 Rate Blood Pressure 118/56 O2 Sat by Pulse 96 97 Oximetry - Lab 01/20/22 04:39 01/20/22 04:39 Most recent lab results Calcium 9.3 mg/dL (8.4-10.2) 01/20/22 04:39 Phosphorus 3.60 mg/dL (2.5-4.5) 01/17/22 07:06 Magnesium 2.40 mg/dL (1.7-2.3) H 01/18/22 12:52 Urine Sodium 58 mmol/L 01/12/22 11:44 Medications & Allergies - Medications Allergies/Adverse Reactions: Allergies heparin Allergy (Verified 01/19/22 10:43) Unknown Home Medications: Home Medications Medication Instructions Recorded Confirmed Last Taken Type cephALEXin [Keflex] 500 mg PO Q6HR 7 Days #28 capsule 12/09/21 01/14/22 Unknown Rx Aspirin [Riggins Aspirin EC] 81 mg PO QDAY 12/14/21 01/14/22 Unknown History Atorvastatin [Lipitor] 80 mg PO QHS 12/14/21 01/14/22 Unknown History Dapagliflozin Propanediol [Farxiga] 10 mg PO QDAY 12/14/21 01/14/22 Unknown History Insulin Detemir [Levemir VIAL] 25 unit SQ QHS 12/14/21 01/14/22 Unknown History Insulin Lispro [Admelog] 100 unit SQ ACHS 12/14/21 01/14/22 Unknown History Tamsulosin [Flomax] 0.4 mg PO QDAY 12/14/21 01/14/22 Unknown History carvediloL [Coreg] 3.125 mg PO BID 12/14/21 01/14/22 Unknown History Clopidogrel [Plavix] 75 mg PO QDAY tablet 12/27/21 01/14/22 Unknown Rx Sertraline [Zoloft] 100 mg PO QDAY #30 12/27/21 01/14/22 Unknown Rx Simple Syrup 15 ml FEEDTUBE PRN PRN oral.liqd 12/27/21 01/14/22 Unknown Rx Simple Syrup 30 ml FEEDTUBE PRN PRN oral.liqd 12/27/21 01/14/22 Unknown Rx Sodium Bicarbonate 325 mg FEEDTUBE PRN PRN #30 tablet 12/27/21 01/14/22 Unknown Rx Torsemide [Demadex] 20 mg PO QDAY #30 12/27/21 01/14/22 Unknown Rx Active Medications: Generic Name Dose Route Start Last Admin Trade Name Freq PRN Reason Stop Dose Admin Acetaminophen 650 mg 01/11/22 05:40 01/19/22 23:03 Acetaminophen 325 Mg Tab PO 650 mg Q4H PRN Administration Pain MILD(1-3)/Fever >100.5/ROGERS Albuterol 2.5 mg 01/11/22 05:40 Albuterol 2.5 Mg/3 Ml Nebu IH Q3HRT PRN Shortness Of Breath Lipase/Protease/Amylase 1 each 01/17/22 16:03 Lipase 10,500/Protease 25,000/Amylase 43,750 (Units) Dr Mariee FEEDTUBE PRN PRN For Clogged Feeding Tube Ascorbic Acid 1,000 mg 01/19/22 22:00 01/20/22 10:44 Ascorbic Acid 500 Mg Tab PO 1,000 mg BID ALEXSANDRA Administration Aspirin 81 mg 01/13/22 11:00 01/20/22 10:44 Aspirin 81 Mg Tab Chew FEEDTUBE 81 mg QDAY ALEXSANDRA Administration Atorvastatin Calcium 80 mg 01/11/22 22:00 01/19/22 22:53 Atorvastatin 40 Mg Tab PO 80 mg QHS ALEXSANDRA Administration Cholecalciferol 5,000 unit 01/20/22 10:00 01/20/22 10:44 Cholecalciferol (Vit D3) 5,000 Unit Tab PO 5,000 unit DAILY ALEXSANDRA Administration Clopidogrel Bisulfate 75 mg 01/11/22 10:00 01/20/22 10:44 Clopidogrel 75 Mg Tab PO 75 mg QDAY ALEXSANDRA Administration Dextrose 50 ml 01/11/22 05:40 Dextrose 50% In Water (25gm) 50 Ml Syringe IV Q30MIN PRN Hypoglycemia Protocol Famotidine 10 mg 01/13/22 11:00 01/20/22 10:44 Famotidine 10 Mg Tab FEEDTUBE 10 mg BID ALEXSANDRA Administration Hydralazine HCl 10 mg 01/11/22 05:54 Hydralazine 20 Mg/1 Ml Inj IV Q6H PRN Blood Pressure Cefepime HCl 1 gm in 100 mls @ 200 mls/hr 01/13/22 18:00 01/19/22 17:00 Cefepime/Ns 1 Gm/100 Ml IV 200 mls/hr QPM ALEXSANDRA Administration Protocol Sodium Chloride 100 mls @ 999 mls/hr 01/13/22 18:00 Nacl 0.9% IV ASHLEY PRN Hypotension Daptomycin 300 mg/ Sodium 100 mls @ 200 mls/hr 01/19/22 12:00 01/19/22 16:31 Chloride IV 200 mls/hr Q48H ALEXSANDRA Administration Protocol Dextrose 1,000 mls @ 75 mls/hr 01/19/22 12:00 01/19/22 23:19 D5w IV 75 mls/hr DIRECT ALEXSANDRA Administration Insulin Glargine 15 units 01/18/22 22:00 01/19/22 22:52 Insulin Glargine 100 Units/Ml SUB-Q 15 units HS ALEXSANDRA Administration Insulin Human Lispro 0 unit 01/11/22 06:00 01/20/22 13:29 Insulin Lispro 100 Unit/Ml SUB-Q 8 unit Q6HR ALEXSANDRA Administration Protocol Midodrine 10 mg 01/12/22 09:03 01/20/22 13:29 Midodrine 10 Mg Tab PO 10 mg TID@0800,1200,1600 ALESXANDRA Administration Ondansetron HCl 4 mg 01/11/22 05:40 Ondansetron 4 Mg/2 Ml Inj IV Q8H PRN Nausea And Vomiting Potassium Chloride 30 meq 01/18/22 10:00 01/20/22 10:44 Potassium Chloride Er 10 Meq Tab PO 30 meq QDAY ALEXSANDRA Administration Prazosin HCl 5 mg 01/15/22 22:00 01/20/22 10:44 Prazosin 5 Mg Cap PO 5 mg Q12HR ALEXSANDRA Administration Simple Syrup 15 ml 01/17/22 16:03 Simple Syrup 15 Ml FEEDTUBE PRN PRN Hypoglycemia Simple Syrup 30 ml 01/17/22 16:03 Simple Syrup 15 Ml FEEDTUBE PRN PRN Hypoglycemia Sodium Bicarbonate 325 mg 01/17/22 16:03 Sodium Bicarbonate 325 Mg Tab FEEDTUBE PRN PRN For Clogged Feeding Tube Sodium Chloride 10 ml 01/11/22 10:00 01/20/22 10:45 Sodium Chloride 0.9% 10 Ml Flush Syringe IV 10 ml BID ALEXSANDRA Administration Sodium Chloride 10 ml 01/11/22 05:40 Sodium Chloride 0.9% 10 Ml Flush Syringe IV PRN PRN LINE FLUSH Sodium Hypochlorite 1 applic 01/14/22 10:00 01/20/22 10:45 Sodium Hypochlorite, Dakin's 1/2 Strength (0.25%) 473 Ml Topical Soln TP 1 applicatio BID ALEXSANDRA Administration Zinc Sulfate 220 mg 01/19/22 22:00 01/20/22 10:44 Zinc Sulfate 220 Mg Cap PO 220 mg BID ALEXSANDRA Administration
[2022-01-20] MEDS: SODIUM CHLORIDE 0.45% 1000 ML 1,000 ML IV SCH (14:27)
[2022-01-20] MEDS: CEFEPIME/NS 1 GM/100 ML 1 GM/100 ML BAG IV SCH (16:59)
--- NOTE | 2022-01-20 19:24 | Progress Note ---
Assessment and Plan Assessment and plan: This is a 66-year-old male with known past medical history of hypertension, CVA, CHF, DM, dysphagia s/p PEGtube placement admitted for sepsis and MAURI Hospital Course to Date: 01/12: Patient remains encephalopathic but more awake, following simple commands. Still hypotensive this am, probable sepsis. Febrile overnight with worsening leukocytosis this am. Cultures are pending. Continue IVF hydration and empiric IV abx. Multiple wounds, including unstageable sacral decub and MRSA PCR positive. IV Vanco was also initiated, renal dose per pharmacy. ID consulted. Midodrine also added TID. General surgery and wound care was also consulted for wounds eval and treatment. Worsening renal function with hypernatremia and hyperkalemia also noted, continue IVF hydration per nephro. Worsening thrombocytopenia also noted, no s/s of any active bleeding. H&H stable. Hold AC for now, HIT panel ordered. Lantus qhs added for hyperglycemia, continue BG and SSI Q6hrs 01/13: Patient tolerating tube feeds via PEG, unsure why the patient who had a PEG got so dehydrated at the facility, it appears he was tolerating some PO and as a result PEG was not in use at the facility. He is for debridement tomorrow, will continue free water flushes-150CC Q6 Considering he is on HD, will reassess and stop tomorrow if improved, Keep NPO after Midnight Continue abx therapy, Mental status improving some Discharge planning when stable 01/14/ Na level improving, Cr stable after HD x2, cont iv fluid, follow renal recommendation, pending surgical eval for decubitus ulcer 01/15: Plan to hold hemodialysis today, creatinine IVF/stable. Status post bedside debridement of the decubitus ulcer by general surgery. Patient need deep debridement which is planned for tomorrow. N.p.o. after midnight. C ontinue to follow BMP 01/16: Positive for COVID-19, moved to COVID floor. We will continue to follow inflammatory markers. cancelled deep debridement at the OR today. We will continue to follow. Not a candidate for remdesivir due to renal failure, oxygen requirement has not changed, will hold dexamethasone. Continue to follow 01/17: BP remains very soft today, will initiate IV fluid, continue to monitor clinically. Monitor renal function and inflammatory markers. add long acting insulin for hyperglycemia 01/18: K 2.8 today, cont to replete, ordered CT head worsening encephalopathy, cont restrain. Patient remians confused, follow inflammatory markers. follow BMP 01/19: patient on RA, remains confused. Na 150 today, changed iv fluid to D5w and increased free water with TF. follow inflammatory markers. D-dimer >1000, will change heparin to eliquis 2.[address] head w/o any changes Assessment and Plan #Acute Metabolic Encephalopathy - Multifactorial: probably due to azotemia vs hypernatremia, vs infectious process - on Continous IVF hydration and empiric IV abx - Mentation with mild improvement, following simple commands - CT head no changes - Frequent reorientation - Avoid sedatives agents - Maintenance of sleep-wake cycle #Hypotension 2/ #Sepsis Vs hypovolemia #H/o Congestive Heart Failure(CHF) - Presented with tachycardia and hypotension - Patient remains hypotension this am, was febrile overnight and worsen leukocytosis this am - 12/14/21 Ech reviewed EF 45-50%, patient appear hypovolemic and dry - Continue IVF hydration per Nephro - Hold home antihypertensive agents - Midodrine added - cont. IVF, increased free water with TF for hypernatremia - Continue blood pressure monitor per protocol - Maintain MAP above 65 - Strict intake and output and daily weight #Acute Kidney Injury(MAURI) most likely ATN, placed on HD #Hypernatremia #Hyperkalemia, resolved # hypokalemia - probably due to hypotension/hypovelemia - Per record Scr. was 1.2 from last admit on 12/2021 - Scr. as high as 5.9, BUN 111 - s/p X1 dose of kayexalate, FWF for hypernatremia - Nephrology on consult, appreciated recommendation - no hydronephrosis on renal US - Strict intake and output - Avoid nephrotoxic medications; Renally dose medications - Vallecillo in place, initiated on HD 01/14 - replete electrolytes as needed #Severe Sepsis- multifactorial #Acute cystitis/UTI # Positive Covid 19 #Infected Sacral Decubitis Ulcer #Leukocytosis #Lactic Acidosis - Presented with tachycardia and hypotension - Patient remains hypotension this am, was febrile overnight and worsen leukocytosis this am - Cultures pending, MRSA PCR positive - With multiple wounds, including malodourous, unstageable sacral decubitis. - On Empiric IV Abx- Rocephin, IV Vanco added, renally dose per pharmacy - ID consulted - Continue to F/U on cultures - General Surgery consulted for possible debridement, wound care eval and treat - Wound care also consulted #Dysphagia s/p PEGtube Placement - Nutrition consulted - Initiated enteral nutrition #Thrombocytopenia - Presented with low plt - Plt count worsen this am - no s/s of any active bleeding - Will hold AC- heparin SubQ for now - H&H stable - HIT panel ordered #Type 2 Diabetes with Hyperglycemia - Continue BG and SSI Q6hrs - Lantus added qHs - While critically ill target blood glucose of 140-180 #GI/DVT Prophylaxis - PPI- Pepcid - SCDs to bilateral lower extremities while in bed History Interval history: I have seen and examined the patient at the bedside Patient is COVID-19 positive, on isolation Strict isolation precautions and PPE protocols observed Patient feels slightly better saturating well on room air. MRSA sepsis on multiple antibiotics Vital signs noted Hospitalist Physical - Constitutional Vitals: Temp Pulse Resp BP Pulse Ox 98.6 F 94 H 18 121/58 96 01/20/22 17:26 01/20/22 17:26 01/20/22 17:26 01/20/22 17:26 01/20/22 17:26 General appearance: Present: no acute distress, cachectic - EENT Eyes: Present: PERRL, EOM intact - Neck Neck: Present: supple, normal ROM - Respiratory Respiratory effort: normal Respiratory: bilateral: diminished, negative: rales, rhonchi, wheezing - Cardiovascular Rhythm: regular Heart Sounds: Present: S1 & S2 - Extremities Extremities: no ischemia, No edema - Abdominal General gastrointestinal: soft, non-tender, non-distended, normal bowel sounds - Integumentary Integumentary: Present: clear, warm - Psychiatric Psychiatric: appropriate mood/affect, cooperative - Neurologic Neurologic: moves all extremities Results - Labs CBC & Chem 7: 01/20/22 04:39 01/20/22 04:39 Labs: Laboratory Last Values WBC 11.7 K/mm3 (4.5-11.0) H 01/20/22 04:39 RBC 3.93 M/mm3 (3.65-5.03) 01/20/22 04:39 Hgb 10.6 gm/dl (11.8-15.2) L 01/20/22 04:39 Hct 33.5 % (35.5-45.6) L 01/20/22 04:39 MCV 85 fl (84-94) 01/20/22 04:39 MCH 27 pg (28-32) L 01/20/22 04:39 MCHC 32 % (32-34) 01/20/22 04:39 RDW 25.4 % (13.2-15.2) H 01/20/22 04:39 Plt Count 70 K/mm3 (140-440) L 01/20/22 04:39 [place] % (Auto) 4.2 % (0.0-7.3) 01/17/22 07:06 Eos % (Auto) 1.0 % (0.0-4.3) 01/17/22 07:06 [place] # (Auto) 0.5 K/mm3 (0.0-0.8) 01/17/22 07:06 Eos # (Auto) 0.1 K/mm3 (0.0-0.4) 01/17/22 07:06 Baso # (Auto) 0.1 K/mm3 (0.0-0.1) 01/17/22 07:06 Add Manual Diff Complete 01/20/22 04:39 Total Counted 100 01/20/22 04:39 Seg Neutrophils % Printing Table Hand 01/17/22 07:06 Seg Neuts % (Manual) 87.0 % (40.0-70.0) H 01/20/22 04:39 Band Neutrophils % 1.0 % 01/20/22 04:39 Lymphocytes % (Manual) 4.0 % (13.4-35.0) L 01/20/22 04:39 Reactive Lymphs % (Man) 0 % 01/20/22 04:39 Monocytes % (Manual) 5.0 % (0.0-7.3) 01/20/22 04:39 Eosinophils % (Manual) 2.0 % (0.0-4.3) 01/20/22 04:39 Basophils % (Manual) 0 % (0.0-1.8) 01/20/22 04:39 Metamyelocytes % 1.0 % 01/20/22 04:39 Myelocytes % 0 % 01/20/22 04:39 Promyelocytes % 0 % 01/20/22 04:39 Blast Cells % 0 % 01/20/22 04:39 Nucleated RBC % Not Reportable 01/20/22 04:39 Seg Neutrophils # 11.3 K/mm3 (1.8-7.7) H 01/17/22 07:06 Seg Neutrophils # Man 10.2 K/mm3 (1.8-7.7) H 01/20/22 04:39 Band Neutrophils # 0.1 K/mm3 01/20/22 04:39 Lymphocytes # (Manual) 0.5 K/mm3 (1.2-5.4) L 01/20/22 04:39 Abs React Lymphs (Man) 0.0 K/mm3 01/20/22 04:39 Monocytes # (Manual) 0.6 K/mm3 (0.0-0.8) 01/20/22 04:39 Eosinophils # (Manual) 0.2 K/mm3 (0.0-0.4) 01/20/22 04:39 Basophils # (Manual) 0.0 K/mm3 (0.0-0.1) 01/20/22 04:39 Metamyelocytes # 0.1 K/mm3 01/20/22 04:39 Myelocytes # 0.0 K/mm3 01/20/22 04:39 Promyelocytes # 0.0 K/mm3 01/20/22 04:39 Blast Cells # 0.0 K/mm3 01/20/22 04:39 WBC Morphology Not Reportable 01/20/22 04:39 Hypersegmented Neuts Not Reportable 01/20/22 04:39 Hyposegmented Neuts Not Reportable 01/20/22 04:39 Hypogranular Neuts Not Reportable 01/20/22 04:39 Smudge Cells Not Reportable 01/20/22 04:39 Toxic Granulation Not Reportable 01/20/22 04:39 Toxic Vacuolation Not Reportable 01/20/22 04:39 Dohle Bodies Not Reportable 01/20/22 04:39 Pelger-Huet Anomaly Not Reportable 01/20/22 04:39 Sarah Rods Not Reportable 01/20/22 04:39 Platelet Estimate Consistent w auto 01/20/22 04:39 Clumped Platelets Not Reportable 01/20/22 04:39 Plt Clumps, EDTA Not Reportable 01/20/22 04:39 Large Platelets Not Reportable 01/20/22 04:39 Giant Platelets Not Reportable 01/20/22 04:39 Platelet Satelliting Not Reportable 01/20/22 04:39 Plt Morphology Comment Not Reportable 01/20/22 04:39 RBC Morphology Not Reportable 01/20/22 04:39 Dimorphic RBCs Not Reportable 01/20/22 04:39 Polychromasia Not Reportable 01/20/22 04:39 Hypochromasia 1+ 01/20/22 04:39 Poikilocytosis Not Reportable 01/20/22 04:39 Anisocytosis 2+ 01/20/22 04:39 Microcytosis Not Reportable 01/20/22 04:39 Macrocytosis Not Reportable 01/20/22 04:39 Spherocytes Not Reportable 01/20/22 04:39 Pappenheimer Bodies Not Reportable 01/20/22 04:39 Sickle Cells Not Reportable 01/20/22 04:39 Target Cells Not Reportable 01/20/22 04:39 Tear Drop Cells Not Reportable 01/20/22 04:39 Ovalocytes Not Reportable 01/20/22 04:39 Helmet Cells Not Reportable 01/20/22 04:39 [place] Bodies Not Reportable 01/20/22 04:39 [place] Rings Not Reportable 01/20/22 04:39 Kwabena Cells Not Reportable 01/20/22 04:39 Bite Cells Not Reportable 01/20/22 04:39 Crenated Cell Not Reportable 01/20/22 04:39 Elliptocytes Not Reportable 01/20/22 04:39 Acanthocytes (Spur) Not Reportable 01/20/22 04:39 Rouleaux Not Reportable 01/20/22 04:39 Hemoglobin C Crystals Not Reportable 01/20/22 04:39 Schistocytes Not Reportable 01/20/22 04:39 Malaria parasites Not Reportable 01/20/22 04:39 Jigar Bodies Not Reportable 01/20/22 04:39 Hem Pathologist Commnt No 01/20/22 04:39 D-Dimer 940.59 ng/mlDDU (0-234) H 01/20/22 04:39 Heparin Anti-Xa, Unfract Negative (Negative) 01/13/22 04:56 Sodium 155 mmol/L (137-145) H 01/20/22 04:39 Potassium 3.6 mmol/L (3.6-5.0) 01/20/22 04:39 Chloride 118.1 mmol/L (98-107) H 01/20/22 04:39 Carbon Dioxide 27 mmol/L (22-30) 01/20/22 04:39 Anion Gap 14 mmol/L 01/20/22 04:39 BUN 82 mg/dL (9-20) H 01/20/22 04:39 Creatinine 2.6 mg/dL (0.8-1.3) H 01/20/22 04:39 Estimated GFR 25 ml/min 01/20/22 04:39 BUN/Creatinine Ratio 32 % 01/20/22 04:39 Glucose 346 mg/dL (75-100) H 01/20/22 04:39 POC Glucose 258 mg/dL (70-105) H 01/20/22 16:21 Lactic Acid 1.70 mmol/L (0.7-2.0) 01/13/22 04:56 Calcium 9.3 mg/dL (8.4-10.2) 01/20/22 04:39 Phosphorus 3.60 mg/dL (2.5-4.5) 01/17/22 07:06 Magnesium 2.40 mg/dL (1.7-2.3) H 01/18/22 12:52 Ferritin 560.7 ng/mL (30.0-300.0) H 01/20/22 04:39 Total Bilirubin 0.60 mg/dL (0.1-1.2) 01/11/22 03:08 Direct Bilirubin 0.3 mg/dL (0-0.2) H 01/11/22 03:08 Indirect Bilirubin 0.3 mg/dL 01/11/22 03:08 AST 45 units/L (5-40) H 01/11/22 03:08 ALT 29 units/L (7-56) 01/11/22 03:08 Alkaline Phosphatase 180 units/L (35-129) H 01/11/22 03:08 Lactate Dehydrogenase 334 units/L (91-180) H 01/20/22 04:39 Total Creatine Kinase 15 units/L (55-170) L 01/20/22 04:39 C-Reactive Protein 8.00 mg/dL (0.00-1.30) H 01/20/22 04:39 Total Protein 7.3 g/dL (6.3-8.2) 01/11/22 03:08 Albumin 2.3 g/dL (3.9-5) L 01/11/22 03:08 Albumin/Globulin Ratio 0.5 % 01/11/22 03:08 Serotonin Release Assay See scanned result 01/13/22 04:56 Procalcitonin 0.74 ng/mL (<0.15) 01/20/22 04:39 Urine Color Claudia (Yellow) 01/12/22 11:44 Urine Turbidity Cloudy (Clear) 01/12/22 11:44 Urine pH 5.0 (5.0-7.0) 01/12/22 11:44 Ur Specific [place] 1.030 (1.003-1.030) 01/12/22 11:44 Urine Protein 30 mg/dl mg/dL (Negative) 01/12/22 11:44 Urine Glucose (UA) Negative mg/dL (Negative) 01/12/22 11:44 Urine Ketones Negative mg/dL (Negative) 01/12/22 11:44 Urine Blood Moderate (Negative) A 01/12/22 11:44 Urine Nitrite Negative (Negative) 01/12/22 11:44 Ur Reducing Substances Not Reportable 01/12/22 11:44 Urine Bilirubin Negative (Negative) 01/12/22 11:44 Urine Ictotest Not Reportable 01/12/22 11:44 Urine Urobilinogen 0.0 mg/dL (<2.0) 01/12/22 11:44 Ur Leukocyte Esterase Trace (Negative) 01/12/22 11:44 Urine WBC (Auto) > 182.0 /HPF (0.0-6.0) H 01/12/22 11:44 Urine RBC (Auto) 12.0 /HPF (0.0-6.0) 01/12/22 11:44 Urine Bacteria (Auto) 2+ /HPF (Negative) 01/12/22 11:44 Urine WBC Clumps 3+ /HPF 01/11/22 07:14 Urine Mucus Few /HPF 01/12/22 11:44 Urine Sodium 58 mmol/L 01/12/22 11:44 Nasal Screen MRSA (PCR) Positive (Negative) 01/12/22 Unknown Random Vancomycin 10.3 ug/mL (0-40.0) 01/18/22 07:50 Proteinase 3 (PR3) Ab <1.0 AI (<1.0) 01/13/22 18:40 Myeloperoxidase Ab <1.0 AI (<1.0) 01/13/22 18:40 Heparin-induced Plt Ab Positive (Negative) H 01/13/22 04:56 UF Heparin High Dose 3 % Release 01/13/22 04:56 BRYCE UFH Low Dose 0.1 4 % Release 01/13/22 04:56 BRYCE UFH Low Dose 0.5 5 % Release 01/13/22 04:56 C. difficile Tox (PCR) Negative (Negative) 01/15/22 11:32 Coronavirus (PCR) Positive (Negative) A 01/15/22 10:30 Hepatitis A IgM Ab Non-reactive (NonReactive) 01/13/22 18:40 Hep Bs Antigen Non-reactive (Negative) 01/13/22 18:40 Hep B Core IgM Ab Non-reactive (NonReactive) 01/13/22 18:40 Hepatitis C Antibody Non-reactive (NonReactive) 01/13/22 18:40 Miscellaneous Test Flexitest 1 H 01/13/22 18:40 Microbiology: Microbiology 01/14/22 Unknown Buttock Surgical Biopsy Culture - Preliminary Proteus Mirabilis [place]/IV: Voiding Method Indwelling Catheter Active Medications - Current Medications Current Medications: Generic Name Dose Route Start Last Admin Trade Name Freq PRN Reason Stop Dose Admin Acetaminophen 650 mg 01/11/22 05:40 01/19/22 23:03 Acetaminophen 325 Mg Tab PO 650 mg Q4H PRN Administration Pain MILD(1-3)/Fever >100.5/ROGERS Albuterol 2.5 mg 01/11/22 05:40 Albuterol 2.5 Mg/3 Ml Nebu IH Q3HRT PRN Shortness Of Breath Lipase/Protease/Amylase 1 each 01/17/22 16:03 Lipase 10,500/Protease 25,000/Amylase 43,750 (Units) Dr Mariee FEEDTUBE PRN PRN For Clogged Feeding Tube Ascorbic Acid 1,000 mg 01/19/22 22:00 01/20/22 10:44 Ascorbic Acid 500 Mg Tab PO 1,000 mg BID ALEXSANDRA Administration Aspirin 81 mg 01/13/22 11:00 01/20/22 10:44 Aspirin 81 Mg Tab Chew FEEDTUBE 81 mg QDAY ALEXSANDRA Administration Atorvastatin Calcium 80 mg 01/11/22 22:00 01/19/22 22:53 Atorvastatin 40 Mg Tab PO 80 mg QHS ALEXSANDRA Administration Cholecalciferol 5,000 unit 01/20/22 10:00 01/20/22 10:44 Cholecalciferol (Vit D3) 5,000 Unit Tab PO 5,000 unit DAILY ALEXSANDRA Administration Clopidogrel Bisulfate 75 mg 01/11/22 10:00 01/20/22 10:44 Clopidogrel 75 Mg Tab PO 75 mg QDAY ALEXSANDRA Administration Dextrose 50 ml 01/11/22 05:40 Dextrose 50% In Water (25gm) 50 Ml Syringe IV Q30MIN PRN Hypoglycemia Protocol Famotidine 10 mg 01/13/22 11:00 01/20/22 10:44 Famotidine 10 Mg Tab FEEDTUBE 10 mg BID ALEXSANDRA Administration Hydralazine HCl 10 mg 01/11/22 05:54 Hydralazine 20 Mg/1 Ml Inj IV Q6H PRN Blood Pressure Cefepime HCl 1 gm in 100 mls @ 200 mls/hr 01/13/22 18:00 01/20/22 16:59 Cefepime/Ns 1 Gm/100 Ml IV 200 mls/hr QPM ALEXSANDRA Administration Protocol Sodium Chloride 100 mls @ 999 mls/hr 01/13/22 18:00 Nacl 0.9% IV ASHLEY PRN Hypotension Daptomycin 300 mg/ Sodium 100 mls @ 200 mls/hr 01/19/22 12:00 01/19/22 16:31 Chloride IV 200 mls/hr Q48H ALEXSANDRA Administration Protocol Sodium Chloride 1,000 mls @ 125 mls/hr 01/20/22 15:00 01/20/22 14:27 Nacl 0.45% 1000 Ml IV 125 mls/hr DIRECT ALEXSANDRA Administration Insulin Glargine 15 units 01/18/22 22:00 01/19/22 22:52 Insulin Glargine 100 Units/Ml SUB-Q 15 units HS ALEXSANDRA Administration Insulin Human Lispro 0 unit 01/11/22 06:00 01/20/22 16:58 Insulin Lispro 100 Unit/Ml SUB-Q 6 unit Q6HR ALEXSANDRA Administration Protocol Midodrine 10 mg 01/12/22 09:03 01/20/22 16:58 Midodrine 10 Mg Tab PO 10 mg TID@0800,1200,1600 ALEXSANDRA Administration Ondansetron HCl 4 mg 01/11/22 05:40 Ondansetron 4 Mg/2 Ml Inj IV Q8H PRN Nausea And Vomiting Potassium Chloride 30 meq 01/18/22 10:00 01/20/22 10:44 Potassium Chloride Er 10 Meq Tab PO 30 meq QDAY ALEXSANDRA Administration Prazosin HCl 5 mg 01/15/22 22:00 01/20/22 10:44 Prazosin 5 Mg Cap PO 5 mg Q12HR ALEXSANDRA Administration Simple Syrup 15 ml 01/17/22 16:03 Simple Syrup 15 Ml FEEDTUBE PRN PRN Hypoglycemia Simple Syrup 30 ml 01/17/22 16:03 Simple Syrup 15 Ml FEEDTUBE PRN PRN Hypoglycemia Sodium Bicarbonate 325 mg 01/17/22 16:03 Sodium Bicarbonate 325 Mg Tab FEEDTUBE PRN PRN For Clogged Feeding Tube Sodium Chloride 10 ml 01/11/22 10:00 01/20/22 10:45 Sodium Chloride 0.9% 10 Ml Flush Syringe IV 10 ml BID ALEXSANDRA Administration Sodium Chloride 10 ml 01/11/22 05:40 Sodium Chloride 0.9% 10 Ml Flush Syringe IV PRN PRN LINE FLUSH Sodium Hypochlorite 1 applic 01/14/22 10:00 01/20/22 10:45 Sodium Hypochlorite, Dakin's 1/2 Strength (0.25%) 473 Ml Topical Soln TP 1 applicatio BID ALEXSANDRA Administration Zinc Sulfate 220 mg 01/19/22 22:00 01/20/22 10:44 Zinc Sulfate 220 Mg Cap PO 220 mg BID ALEXSANDRA Administration Nutrition/Malnutrition Assess - Dietary Evaluation Nutrition/Malnutrition Findings: Nutrition Notes Start: 01/12/22 13:45 Freq: Status: Active Protocol: Document 01/19/22 12:02 ZAKIYA (Rec: 01/19/22 12:27 ZAKIYA [id number]) Nutrition Notes Need for Assessment generated from: MD Order Initial or Follow up Reassessment Current Diagnosis Acute Kidney Injury,Diabetes, Sepsis,Hypertension,Heart Failure,Stroke Other Pertinent Diagnosis COVID-19 (+), acute metabolic encephalopathy, infected sacral ulcer Current Diet TF - Nepro at 45ml/hr Labs/Tests Na 150 K 3.3 BUN 70 Cr 2.9 BG 248 Pertinent Medications D5W at 75ml/hr, 30mEq KCl Height 5 ft 10 in Weight 56.69 kg [place] Body Weight (kg) 75.45 BMI 17.9 Weight Status Underweight Subjective/Other Information RD consulted for TF, however, pt already receiving EN support. Per RN, pt tolerating TF at 45ml/hr. HD needs assessed daily by nephrology; no HD needed today . Burn Absent Trauma Absent Difficulty In Swallowing Skin Integrity/Comment Infected sacral decubitus ulcer Minimum of two criteria Yes Body Fat Depletion Moderate depletion (severe) Muscle Mass Moderate Depletion (severe) #2 Nutrition Diagnosis Malnutrition Etiology chronic illness As Evidenced by Signs and Symptoms BMI 17.9, loss of subcutaneous fat and muscle, multiple areas of skin breakdown and infected wound #1 Nutrition Diagnosis Swallowing difficulty Diagnosis Progress(for reassessment Continues documentation) Is patient on ventilator? No Is Patient Ambulatory and/or Out of Bed No REE-([facility]-confined to bed) [phone] Kcal/Kg value to use for calculation 40 Approximate Energy Requirements Using 2268 kcal/Kg Calculation Used for Recommendations Kcal/kg Additional Notes Pro needs 1.5-2g/k-113g/ day Fluid needs 1ml/kcal Nutrition Intervention Nutrition Support: Change TF formula to Glucerna 1.2 at 75ml/hr with 120ml water flush q4h. (Pt with several hypokalemic episodes requiring K repletion ). Kcal 2,160 Protein (gm) 108 Carbohydrates (gm) 206 Fat (gm) 108 Fluid (mL) 1,449 Fiber (gm) 29 Goal #1 TF tolerance Goal #2 TF to meet 100% energy and pro needs Goal #3 Wt maintenance and/or gain Goal #4 Wound healing Follow-Up By: 01/21/22 Additional Comments F/U: TF formula change and tolerance, renal function, BG/ Na/K labs, water flush
[2022-01-20 19:37] LABS: ANA Screen, IFA Negative (Negative)
[2022-01-20] MEDS: INSULIN GLARGINE 100 UNITS/ML SUB-Q SCH (23:55)
[2022-01-21] MEDS: SODIUM CHLORIDE 0.45% 1000 ML 1,000 ML IV SCH ×3 (02:20→18:03)
[2022-01-21] MEDS: INSULIN LISPRO 100 UNIT/ML SUB-Q SCH ×4 (06:00→23:54)
[2022-01-21 06:26] LABS: Calcium 8.5 mg/dL (8.4-10.2)
--- NOTE | 2022-01-21 08:58 | Progress Note ---
Assessment and Plan Assessment and plan: This is a 66-year-old male with known past medical history of hypertension, CVA, CHF, DM, dysphagia s/p PEGtube placement admitted for sepsis and MAURI Hospital Course to Date: 01/12: Patient remains encephalopathic but more awake, following simple commands. Still hypotensive this am, probable sepsis. Febrile overnight with worsening leukocytosis this am. Cultures are pending. Continue IVF hydration and empiric IV abx. Multiple wounds, including unstageable sacral decub and MRSA PCR positive. IV Vanco was also initiated, renal dose per pharmacy. ID consulted. Midodrine also added TID. General surgery and wound care was also consulted for wounds eval and treatment. Worsening renal function with hypernatremia and hyperkalemia also noted, continue IVF hydration per nephro. Worsening thrombocytopenia also noted, no s/s of any active bleeding. H&H stable. Hold AC for now, HIT panel ordered. Lantus qhs added for hyperglycemia, continue BG and SSI Q6hrs 01/13: Patient tolerating tube feeds via PEG, unsure why the patient who had a PEG got so dehydrated at the facility, it appears he was tolerating some PO and as a result PEG was not in use at the facility. He is for debridement tomorrow, will continue free water flushes-150CC Q6 Considering he is on HD, will reassess and stop tomorrow if improved, Keep NPO after Midnight Continue abx therapy, Mental status improving some Discharge planning when stable 01/14/ Na level improving, Cr stable after HD x2, cont iv fluid, follow renal recommendation, pending surgical eval for decubitus ulcer 01/15: Plan to hold hemodialysis today, creatinine IVF/stable. Status post bedside debridement of the decubitus ulcer by general surgery. Patient need deep debridement which is planned for tomorrow. N.p.o. after midnight. Co ntinue to follow BMP 01/16: Positive for COVID-19, moved to COVID floor. We will continue to follow inflammatory markers. cancelled deep debridement at the protocols today. We will continue to follow. Not a candidate for remdesivir due to renal failure, oxygen requirement has not changed, will hold dexamethasone. Continue to follow 01/17: BP remains very soft today, will initiate IV fluid, continue to monitor clinically. Monitor renal function and inflammatory markers. add long acting insulin for hyperglycemia 01/18: K 2.8 today, cont to replete, ordered CT head worsening encephalopathy, c ont restrain. Patient remians confused, follow inflammatory markers. follow BMP 01/19: patient on RA, remains confused. Na 150 today, changed iv fluid to D5w and increased free water with TF. follow inflammatory markers. D-dimer >1000, will change heparin to eliquis 2.[address] head w/o any changes 01/21/2022; severe sepsis currently patient is on cefepime and daptomycin per ID Sacral decubitus ulcer, surgery following, awaiting debridement 7 days after COVID is positive for OR protocols Assessment and Plan #Acute Metabolic Encephalopathy - Multifactorial: probably due to azotemia vs hypernatremia, vs infectious process - on Continous IVF hydration and empiric IV abx - Mentation with mild improvement, following simple commands - CT head no changes - Frequent reorientation - Avoid sedatives agents - Maintenance of sleep-wake cycle #Hypotension 2/2 #Sepsis Vs hypovolemia #H/o Congestive Heart Failure(CHF) - Presented with tachycardia and hypotension - Patient remains hypotension this am, was febrile overnight and worsen leukocytosis this am - 12/14/21 Ech reviewed EF 45-50%, patient appear hypovolemic and dry - Continue IVF hydration per Nephro - Hold home antihypertensive agents - Midodrine added - cont. IVF, increased free water with TF for hypernatremia - Continue blood pressure monitor per protocol - Maintain MAP above 65 - Strict intake and output and daily weight #Acute Kidney Injury(MAURI) most likely ATN, placed on HD #Hypernatremia #Hyperkalemia, resolved # hypokalemia - probably due to hypotension/hypovelemia - Per record Scr. was 1.2 from last admit on 12/2021 - Scr. as high as 5.9, BUN 111 - s/p X1 dose of kayexalate, FWF for hypernatremia - Nephrology on consult, appreciated recommendation - no hydronephrosis on renal US - Strict intake and output - Avoid nephrotoxic medications; Renally dose medications - Vallecillo in place, initiated on HD 01/14 - replete electrolytes as needed #Severe Sepsis- multifactorial #Acute cystitis/UTI # Positive Covid 19 #Infected Sacral Decubitis Ulcer #Leukocytosis #Lactic Acidosis - Presented with tachycardia and hypotension - Patient remains hypotension this am, was febrile overnight and worsen leukocytosis this am - Cultures pending, MRSA PCR positive - With multiple wounds, including malodourous, unstageable sacral decubitis. -Patient is on cefepime and daptomycin per ID - General Surgery consulted for possible debridement, wound care eval and treat - Wound care also consulted #Dysphagia s/p PEGtube Placement - Nutrition consulted - Initiated enteral nutrition #Thrombocytopenia - Presented with low plt - Plt count worsen this am - no s/s of any active bleeding - Will hold AC- heparin SubQ for now - H&H stable - HIT panel ordered #Type 2 Diabetes with Hyperglycemia - Continue BG and SSI Q6hrs - Lantus added qHs - While critically ill target blood glucose of 140-180 #GI/DVT Prophylaxis - PPI- Pepcid - SCDs to bilateral lower extremities while in bed History Interval history: I have seen and examined the patient at the bedside Patient's chart and medications reviewed Isolation precautions and PPE protocols followed Patient is noncommunicative cachectic and critically ill Not on supplemental oxygen Saturating well room air Vital signs noted Hospitalist Physical - Constitutional Vitals: Temp Pulse Resp BP Pulse Ox 97.8 F 78 20 98/51 100 01/20/22 23:12 01/21/22 00:00 01/20/22 23:12 01/20/22 23:12 01/21/22 07:21 General appearance: Present: no acute distress, cachectic, other (Noncommunicative) - EENT Eyes: Present: PERRL, EOM intact - Neck Neck: Present: supple, normal ROM - Respiratory Respiratory effort: normal Respiratory: bilateral: diminished, rhonchi, negative: rales, wheezing - Cardiovascular Rhythm: regular Heart Sounds: Present: S1 & S2 - Extremities Extremities: no ischemia Extremity abnormal: edema - Abdominal General gastrointestinal: soft, non-tender, non-distended, normal bowel sounds, other (PEG tube in place) - Integumentary Integumentary: Present: clear, warm, erythema (Sacral decubitus ulcer) - Psychiatric Psychiatric: other (Noncommunicative) - Neurologic Neurologic: other (Noncommunicative) Results - Labs CBC & Chem 7: 01/20/22 04:39 01/21/22 05:50 Labs: Laboratory Last Values WBC 11.7 K/mm3 (4.5-11.0) H 01/20/22 04:39 RBC 3.93 M/mm3 (3.65-5.03) 01/20/22 04:39 Hgb 10.6 gm/dl (11.8-15.2) L 01/20/22 04:39 Hct 33.5 % (35.5-45.6) L 01/20/22 04:39 MCV 85 fl (84-94) 01/20/22 04:39 MCH 27 pg (28-32) L 01/20/22 04:39 MCHC 32 % (32-34) 01/20/22 04:39 RDW 25.4 % (13.2-15.2) H 01/20/22 04:39 Plt Count 70 K/mm3 (140-440) L 01/20/22 04:39 [place] % (Auto) 4.2 % (0.0-7.3) 01/17/22 07:06 Eos % (Auto) 1.0 % (0.0-4.3) 01/17/22 07:06 [place] # (Auto) 0.5 K/mm3 (0.0-0.8) 01/17/22 07:06 Eos # (Auto) 0.1 K/mm3 (0.0-0.4) 01/17/22 07:06 Baso # (Auto) 0.1 K/mm3 (0.0-0.1) 01/17/22 07:06 Add Manual Diff Complete 01/20/22 04:39 Total Counted 100 01/20/22 04:39 Seg Neutrophils % Butadiene Converter Operator 01/17/22 07:06 Seg Neuts % (Manual) 87.0 % (40.0-70.0) H 01/20/22 04:39 Band Neutrophils % 1.0 % 01/20/22 04:39 Lymphocytes % (Manual) 4.0 % (13.4-35.0) L 01/20/22 04:39 Reactive Lymphs % (Man) 0 % 01/20/22 04:39 Monocytes % (Manual) 5.0 % (0.0-7.3) 01/20/22 04:39 Eosinophils % (Manual) 2.0 % (0.0-4.3) 01/20/22 04:39 Basophils % (Manual) 0 % (0.0-1.8) 01/20/22 04:39 Metamyelocytes % 1.0 % 01/20/22 04:39 Myelocytes % 0 % 01/20/22 04:39 Promyelocytes % 0 % 01/20/22 04:39 Blast Cells % 0 % 01/20/22 04:39 Nucleated RBC % Not Reportable 01/20/22 04:39 Seg Neutrophils # 11.3 K/mm3 (1.8-7.7) H 01/17/22 07:06 Seg Neutrophils # Man 10.2 K/mm3 (1.8-7.7) H 01/20/22 04:39 Band Neutrophils # 0.1 K/mm3 01/20/22 04:39 Lymphocytes # (Manual) 0.5 K/mm3 (1.2-5.4) L 01/20/22 04:39 Abs React Lymphs (Man) 0.0 K/mm3 01/20/22 04:39 Monocytes # (Manual) 0.6 K/mm3 (0.0-0.8) 01/20/22 04:39 Eosinophils # (Manual) 0.2 K/mm3 (0.0-0.4) 01/20/22 04:39 Basophils # (Manual) 0.0 K/mm3 (0.0-0.1) 01/20/22 04:39 Metamyelocytes # 0.1 K/mm3 01/20/22 04:39 Myelocytes # 0.0 K/mm3 01/20/22 04:39 Promyelocytes # 0.0 K/mm3 01/20/22 04:39 Blast Cells # 0.0 K/mm3 01/20/22 04:39 WBC Morphology Not Reportable 01/20/22 04:39 Hypersegmented Neuts Not Reportable 01/20/22 04:39 Hyposegmented Neuts Not Reportable 01/20/22 04:39 Hypogranular Neuts Not Reportable 01/20/22 04:39 Smudge Cells Not Reportable 01/20/22 04:39 Toxic Granulation Not Reportable 01/20/22 04:39 Toxic Vacuolation Not Reportable 01/20/22 04:39 Dohle Bodies Not Reportable 01/20/22 04:39 Pelger-Huet Anomaly Not Reportable 01/20/22 04:39 Sarah Rods Not Reportable 01/20/22 04:39 Platelet Estimate Consistent w auto 01/20/22 04:39 Clumped Platelets Not Reportable 01/20/22 04:39 Plt Clumps, EDTA Not Reportable 01/20/22 04:39 Large Platelets Not Reportable 01/20/22 04:39 Giant Platelets Not Reportable 01/20/22 04:39 Platelet Satelliting Not Reportable 01/20/22 04:39 Plt Morphology Comment Not Reportable 01/20/22 04:39 RBC Morphology Not Reportable 01/20/22 04:39 Dimorphic RBCs Not Reportable 01/20/22 04:39 Polychromasia Not Reportable 01/20/22 04:39 Hypochromasia 1+ 01/20/22 04:39 Poikilocytosis Not Reportable 01/20/22 04:39 Anisocytosis 2+ 01/20/22 04:39 Microcytosis Not Reportable 01/20/22 04:39 Macrocytosis Not Reportable 01/20/22 04:39 Spherocytes Not Reportable 01/20/22 04:39 Pappenheimer Bodies Not Reportable 01/20/22 04:39 Sickle Cells Not Reportable 01/20/22 04:39 Target Cells Not Reportable 01/20/22 04:39 Tear Drop Cells Not Reportable 01/20/22 04:39 Ovalocytes Not Reportable 01/20/22 04:39 Helmet Cells Not Reportable 01/20/22 04:39 [place] Bodies Not Reportable 01/20/22 04:39 [place] Rings Not Reportable 01/20/22 04:39 [place] Cells Not Reportable 01/20/22 04:39 Bite Cells Not Reportable 01/20/22 04:39 Crenated Cell Not Reportable 01/20/22 04:39 Elliptocytes Not Reportable 01/20/22 04:39 Acanthocytes (Spur) Not Reportable 01/20/22 04:39 Rouleaux Not Reportable 01/20/22 04:39 Hemoglobin C Crystals Not Reportable 01/20/22 04:39 Schistocytes Not Reportable 01/20/22 04:39 Malaria parasites Not Reportable 01/20/22 04:39 Jigar Bodies Not Reportable 01/20/22 04:39 Hem Pathologist Commnt No 01/20/22 04:39 D-Dimer 940.59 ng/mlDDU (0-234) H 01/20/22 04:39 Heparin Anti-Xa, Unfract Negative (Negative) 01/13/22 04:56 Sodium 151 mmol/L (137-145) H 01/21/22 05:50 Potassium 3.7 mmol/L (3.6-5.0) 01/21/22 05:50 Chloride 114.9 mmol/L (98-107) H 01/21/22 05:50 Carbon Dioxide 26 mmol/L (22-30) 01/21/22 05:50 Anion Gap 14 mmol/L 01/21/22 05:50 BUN 88 mg/dL (9-20) H 01/21/22 05:50 Creatinine 2.6 mg/dL (0.8-1.3) H 01/21/22 05:50 Estimated GFR 25 ml/min 01/21/22 05:50 BUN/Creatinine Ratio 34 % 01/21/22 05:50 Glucose 278 mg/dL (75-100) H 01/21/22 05:50 POC Glucose 236 mg/dL (70-105) H 01/21/22 04:55 Lactic Acid 1.70 mmol/L (0.7-2.0) 01/13/22 04:56 Calcium 8.5 mg/dL (8.4-10.2) 01/21/22 05:50 Phosphorus 3.60 mg/dL (2.5-4.5) 01/17/22 07:06 Magnesium 2.40 mg/dL (1.7-2.3) H 01/18/22 12:52 Ferritin 560.7 ng/mL (30.0-300.0) H 01/20/22 04:39 Total Bilirubin 0.60 mg/dL (0.1-1.2) 01/11/22 03:08 Direct Bilirubin 0.3 mg/dL (0-0.2) H 01/11/22 03:08 Indirect Bilirubin 0.3 mg/dL 01/11/22 03:08 AST 45 units/L (5-40) H 01/11/22 03:08 ALT 29 units/L (7-56) 01/11/22 03:08 Alkaline Phosphatase 180 units/L (35-129) H 01/11/22 03:08 Lactate Dehydrogenase 334 units/L (91-180) H 01/20/22 04:39 Total Creatine Kinase 15 units/L (55-170) L 01/20/22 04:39 C-Reactive Protein 8.00 mg/dL (0.00-1.30) H 01/20/22 04:39 Total Protein 7.3 g/dL (6.3-8.2) 01/11/22 03:08 Albumin 2.3 g/dL (3.9-5) L 01/11/22 03:08 Albumin/Globulin Ratio 0.5 % 01/11/22 03:08 Serotonin Release Assay See scanned result 01/13/22 04:56 Procalcitonin 0.74 ng/mL (<0.15) 01/20/22 04:39 Urine Color Claudia (Yellow) 01/12/22 11:44 Urine Turbidity Cloudy (Clear) 01/12/22 11:44 Urine pH 5.0 (5.0-7.0) 01/12/22 11:44 Ur Specific [place] 1.030 (1.003-1.030) 01/12/22 11:44 Urine Protein 30 mg/dl mg/dL (Negative) 01/12/22 11:44 Urine Glucose (UA) Negative mg/dL (Negative) 01/12/22 11:44 Urine Ketones Negative mg/dL (Negative) 01/12/22 11:44 Urine Blood Moderate (Negative) A 01/12/22 11:44 Urine Nitrite Negative (Negative) 01/12/22 11:44 Ur Reducing Substances Not Reportable 01/12/22 11:44 Urine Bilirubin Negative (Negative) 01/12/22 11:44 Urine Ictotest Not Reportable 01/12/22 11:44 Urine Urobilinogen 0.0 mg/dL (<2.0) 01/12/22 11:44 Ur Leukocyte Esterase Trace (Negative) 01/12/22 11:44 Urine WBC (Auto) > 182.0 /HPF (0.0-6.0) H 01/12/22 11:44 Urine RBC (Auto) 12.0 /HPF (0.0-6.0) 01/12/22 11:44 Urine Bacteria (Auto) 2+ /HPF (Negative) 01/12/22 11:44 Urine WBC Clumps 3+ /HPF 01/11/22 07:14 Urine Mucus Few /HPF 01/12/22 11:44 Urine Sodium 58 mmol/L 01/12/22 11:44 Nasal Screen MRSA (PCR) Positive (Negative) 01/12/22 Unknown Random Vancomycin 10.3 ug/mL (0-40.0) 01/18/22 07:50 KAMILLA Screen Negative (Negative) 01/14/22 05:47 Proteinase 3 (PR3) Ab <1.0 AI (<1.0) 01/13/22 18:40 Myeloperoxidase Ab <1.0 AI (<1.0) 01/13/22 18:40 Heparin-induced Plt Ab Positive (Negative) H 01/13/22 04:56 UF Heparin High Dose 3 % Release 01/13/22 04:56 BRYCE UFH Low Dose 0.1 4 % Release 01/13/22 04:56 BRYCE UFH Low Dose 0.5 5 % Release 01/13/22 04:56 C. difficile Tox (PCR) Negative (Negative) 01/15/22 11:32 Coronavirus (PCR) Positive (Negative) A 01/15/22 10:30 Hepatitis A IgM Ab Non-reactive (NonReactive) 01/13/22 18:40 Hep Bs Antigen Non-reactive (Negative) 01/13/22 18:40 Hep B Core IgM Ab Non-reactive (NonReactive) 01/13/22 18:40 Hepatitis C Antibody Non-reactive (NonReactive) 01/13/22 18:40 Miscellaneous Test Flexitest 1 H 01/13/22 18:40 Microbiology: Microbiology 01/14/22 Unknown Buttock Surgical Biopsy Culture - Preliminary Proteus Mirabilis Vallecillo/IV: Voiding Method Indwelling Catheter Active Medications - Current Medications Current Medications: Generic Name Dose Route Start Last Admin Trade Name Freq PRN Reason Stop Dose Admin Acetaminophen 650 mg 01/11/22 05:40 01/19/22 23:03 Acetaminophen 325 Mg Tab PO 650 mg Q4H PRN Administration Pain MILD(1-3)/Fever >100.5/ROGERS Albuterol 2.5 mg 01/11/22 05:40 Albuterol 2.5 Mg/3 Ml Nebu IH Q3HRT PRN Shortness Of Breath Lipase/Protease/Amylase 1 each 01/17/22 16:03 Lipase 10,500/Protease 25,000/Amylase 43,750 (Units) Dr Mariee FEEDTUBE PRN PRN For Clogged Feeding Tube Ascorbic Acid 1,000 mg 01/19/22 22:00 01/20/22 22:26 Ascorbic Acid 500 Mg Tab PO 1,000 mg BID ALEXSANDRA Administration Aspirin 81 mg 01/13/22 11:00 01/20/22 10:44 Aspirin 81 Mg Tab Chew FEEDTUBE 81 mg QDAY ALEXSANDRA Administration Atorvastatin Calcium 80 mg 01/11/22 22:00 01/20/22 22:15 Atorvastatin 40 Mg Tab PO 80 mg QHS ALEXSANDRA Administration Cholecalciferol 5,000 unit 01/20/22 10:00 01/20/22 10:44 Cholecalciferol (Vit D3) 5,000 Unit Tab PO 5,000 unit DAILY ALEXSANDRA Administration Clopidogrel Bisulfate 75 mg 01/11/22 10:00 01/20/22 10:44 Clopidogrel 75 Mg Tab PO 75 mg QDAY ALEXSANDRA Administration Dextrose 50 ml 01/11/22 05:40 Dextrose 50% In Water (25gm) 50 Ml Syringe IV Q30MIN PRN Hypoglycemia Protocol Famotidine 10 mg 01/13/22 11:00 01/20/22 22:16 Famotidine 10 Mg Tab FEEDTUBE 10 mg BID ALEXSANDRA Administration Hydralazine HCl 10 mg 01/11/22 05:54 Hydralazine 20 Mg/1 Ml Inj IV Q6H PRN Blood Pressure Cefepime HCl 1 gm in 100 mls @ 200 mls/hr 01/13/22 18:00 01/20/22 16:59 Cefepime/Ns 1 Gm/100 Ml IV 200 mls/hr QPM ALEXSANDRA Administration Protocol Sodium Chloride 100 mls @ 999 mls/hr 01/13/22 18:00 Nacl 0.9% IV ASHLEY PRN Hypotension Daptomycin 300 mg/ Sodium 100 mls @ 200 mls/hr 01/19/22 12:00 01/19/22 16:31 Chloride IV 200 mls/hr Q48H ALEXSANDRA Administration Protocol Sodium Chloride 1,000 mls @ 125 mls/hr 01/20/22 15:00 01/21/22 02:20 Nacl 0.45% 1000 Ml IV 125 mls/hr DIRECT ALEXSANDRA Administration Insulin Glargine 15 units 01/18/22 22:00 01/20/22 23:55 Insulin Glargine 100 Units/Ml SUB-Q 15 units HS ALEXSANDRA Administration Insulin Human Lispro 0 unit 01/11/22 06:00 01/21/22 06:00 Insulin Lispro 100 Unit/Ml SUB-Q 4 unit Q6HR ALEXSANDRA Administration Protocol Midodrine 10 mg 01/12/22 09:03 01/20/22 16:58 Midodrine 10 Mg Tab PO 10 mg TID@0800,1200,1600 ALEXSANDRA Administration Ondansetron HCl 4 mg 01/11/22 05:40 Ondansetron 4 Mg/2 Ml Inj IV Q8H PRN Nausea And Vomiting Potassium Chloride 30 meq 01/18/22 10:00 01/20/22 10:44 Potassium Chloride Er 10 Meq Tab PO 30 meq QDAY ALEXSANDRA Administration Prazosin HCl 5 mg 01/15/22 22:00 01/20/22 22:28 Prazosin 5 Mg Cap PO 5 mg Q12HR ALEXSANDRA Administration Simple Syrup 15 ml 01/17/22 16:03 Simple Syrup 15 Ml FEEDTUBE PRN PRN Hypoglycemia Simple Syrup 30 ml 01/17/22 16:03 Simple Syrup 15 Ml FEEDTUBE PRN PRN Hypoglycemia Sodium Bicarbonate 325 mg 01/17/22 16:03 Sodium Bicarbonate 325 Mg Tab FEEDTUBE PRN PRN For Clogged Feeding Tube Sodium Chloride 10 ml 01/11/22 10:00 01/20/22 22:17 Sodium Chloride 0.9% 10 Ml Flush Syringe IV 10 ml BID ALEXSANDRA Administration Sodium Chloride 10 ml 01/11/22 05:40 Sodium Chloride 0.9% 10 Ml Flush Syringe IV PRN PRN LINE FLUSH Sodium Hypochlorite 1 applic 01/14/22 10:00 01/20/22 22:14 Sodium Hypochlorite, Dakin's 1/2 Strength (0.25%) 473 Ml Topical Soln TP 1 applicatio BID ALEXSANDRA Administration Zinc Sulfate 220 mg 01/19/22 22:00 01/20/22 22:16 Zinc Sulfate 220 Mg Cap PO 220 mg BID ALEXSANDRA Administration Nutrition/Malnutrition Assess - Dietary Evaluation Nutrition/Malnutrition Findings: Nutrition Notes Start: 01/12/22 13:45 Freq: Status: Active Protocol: Document 01/19/22 12:02 ZAKIYA (Rec: 01/19/22 12:27 ZAKIYA [id number]) Nutrition Notes Need for Assessment generated from: MD Order Initial or Follow up Reassessment Current Diagnosis Acute Kidney Injury,Diabetes, Sepsis,Hypertension,Heart Failure,Stroke Other Pertinent Diagnosis COVID-19 (+), acute metabolic encephalopathy, infected sacral ulcer Current Diet TF - Nepro at 45ml/hr Labs/Tests Na 150 K 3.3 BUN 70 Cr 2.9 BG 248 Pertinent Medications D5W at 75ml/hr, 30mEq KCl Height 5 ft 10 in Weight 56.69 kg [place] Body Weight (kg) 75.45 BMI 17.9 Weight Status Underweight Subjective/Other Information RD consulted for TF, however, pt already receiving EN support. Per RN, pt tolerating TF at 45ml/hr. HD needs assessed daily by nephrology; no HD needed today . Burn Absent Trauma Absent Difficulty In Swallowing Skin Integrity/Comment Infected sacral decubitus ulcer Minimum of two criteria Yes Body Fat Depletion Moderate depletion (severe) Muscle Mass Moderate Depletion (severe) #2 Nutrition Diagnosis Malnutrition Etiology chronic illness As Evidenced by Signs and Symptoms BMI 17.9, loss of subcutaneous fat and muscle, multiple areas of skin breakdown and infected wound #1 Nutrition Diagnosis Swallowing difficulty Diagnosis Progress(for reassessment Continues documentation) Is patient on ventilator? No Is Patient Ambulatory and/or Out of Bed No REE-([facility]-confined to bed) [phone] Kcal/Kg value to use for calculation 40 Approximate Energy Requirements Using 2268 kcal/Kg Calculation Used for Recommendations Kcal/kg Additional Notes Pro needs 1.5-2g/k-113g/ day Fluid needs 1ml/kcal Nutrition Intervention Nutrition Support: Change TF formula to Glucerna 1.2 at 75ml/hr with 120ml water flush q4h. (Pt with several hypokalemic episodes requiring K repletion ). Kcal 2,160 Protein (gm) 108 Carbohydrates (gm) 206 Fat (gm) 108 Fluid (mL) 1,449 Fiber (gm) 29 Goal #1 TF tolerance Goal #2 TF to meet 100% energy and pro needs Goal #3 Wt maintenance and/or gain Goal #4 Wound healing Follow-Up By: 01/21/22 Additional Comments F/U: TF formula change and tolerance, renal function, BG/ Na/K labs, water flush
[2022-01-21] MEDS: ASCORBIC ACID 500 MG TAB PO SCH ×2 (09:22→21:21)
[2022-01-21] MEDS: FAMOTIDINE 10 MG TAB FEEDTUBE SCH ×2 (09:22→21:20)
[2022-01-21] MEDS: MIDODRINE 10 MG TAB PO SCH ×3 (09:22→15:25)
[2022-01-21] MEDS: ZINC SULFATE 220 MG CAP PO SCH ×2 (09:22→21:21)
[2022-01-21] MEDS: CHOLECALCIFEROL (VIT D3) 5,000 UNIT TAB PO SCH (09:22)
[2022-01-21] MEDS: ASPIRIN 81 MG TAB CHEW FEEDTUBE SCH (09:22)
[2022-01-21] MEDS: POTASSIUM CHLORIDE ER 10 MEQ TAB PO SCH (09:22)
[2022-01-21] MEDS: PRAZOSIN 5 MG CAP PO SCH ×2 (09:25→21:36)
[2022-01-21] MEDS: CLOPIDOGREL 75 MG TAB PO SCH (09:25)
[2022-01-21] MEDS: SODIUM HYPOCHLORITE, DAKIN'S 1/2 STRENGTH (0.25%) 473 ML TOPICAL SOLN TP SCH ×2 (09:38→21:19)
--- NOTE | 2022-01-21 10:09 | Progress Note ---
Assessment and Plan Cultures: MRSA nasal PCR: Positive 01/11/2022 blood culture: No growth 01/11/2022 urine culture: Enterobacter, Enterococcus (VRE - faecium) 01/14/2022 decubitus OR culture: Proteus mirabilis A/P: 66-year-old male with hypertension, CHF, diabetes, prior CVA, status post PEG tube, indwelling Vallecillo catheter, half-way resident: #Severe sepsis: Multifactorial, likely secondary to UTI, infected sacral decubitus ulcer. UA showed significant pyuria. Blood cultures with no growth. #COVID-19: initial CXR without pneumonia. Weaned off oxygen. WBC 14.0, D-dimer 1089, CRP 15.8, procalcitonin 0.57, ferritin 693, LDH 336. C. difficile PCR: Negative #UTI: indwelling Vallecillo. UA with pyuria, culture with Enterobacter, Enterococcus #Necrotic sacral decubitus ulcer with eschar. Underwent debridement by Dr. Small on 01/14/2022. CT without any evidence of osteomyelitis. #Acute renal failure: renally adjust abx. Nephrology following, on HD. #Prior CVA, bedbound status with indwelling Vallecillo catheter, PEG tube #Acute encephalopathy: Admitted with severe hypernatremia. #Acute thrombocytopenia: monitor. #Protein calorie malnutrition Recs: -continue renally dosed IV cefepime, IV daptomycin due to VRE. Avoiding linezolid due to thrombocytopenia. -Due to renal function, not a candidate for Remdesivir. -Patient on room air, so hold off on steroids for now. Recheck CRP in AM -continue wound care and offloading. Surgery following, possible additional debridement later this week -Guarded prognosis Tara Ramos MD, FACP, [facility] ([facility] O: [phone] F: [phone] C: [phone] Subjective Date of service: 01/21/22 Principal diagnosis: MAURI Interval history: No fever. Remains on room air. Objective - Exam Narrative Exam: Physical Exam: deferred due to COVID-19 positivity, reduce risk of transmission - Constitutional Vitals: Vital Signs Temp Pulse Resp BP Pulse Ox 97.8 F 78 20 98/51 100 01/20/22 23:12 01/21/22 00:00 01/20/22 23:12 01/20/22 23:12 01/21/22 07:21 Temperature -Last 24 Hours Temperature 97.8 F Temperature 98.6 F Temperature 98.3 F - Labs CBC & Chem 7: 01/20/22 04:39 01/21/22 05:50 Labs: Abnormal lab results 01/20/22 01/20/22 01/20/22 Range/Units 11:34 16:21 23:28 Sodium (137-145) mmol/L Chloride (98-107) mmol/L BUN (9-20) mg/dL Creatinine (0.8-1.3) mg/dL Glucose (75-100) mg/dL POC Glucose 311 H 258 H 259 H (70-105) mg/dL 01/21/22 01/21/22 Range/Units 04:55 05:50 Sodium 151 H (137-145) mmol/L Chloride 114.9 H (98-107) mmol/L BUN 88 H (9-20) mg/dL Creatinine 2.6 H (0.8-1.3) mg/dL Glucose 278 H (75-100) mg/dL POC Glucose 236 H (70-105) mg/dL
--- NOTE | 2022-01-21 13:24 | Progress Note ---
Assessment and Plan Assessment: Acute metabolic encephalopathy MAURI (acute kidney injury) Hypertension Congestive heart failure Diabetes Hypernatremia SIRS (systemic inflammatory response syndrome COVID-positive Plan: Renal labs reviewed. Serum creatinine 2.6 today and yesterday's was 2.6, stable but BUN is slowly rising currently 88 today and prior was 82 S/P vasc cath placement on 12/14/21. S/P hemodialysis on 12/14/21 and on 12/15/21. No acute indication for HD today. 24 hour urine collection for creatinine clearance- collection to end at 4:00 p.m today Renal US was negative for obstruction Urine lytes reviewed, has active sediments. KAMILLA, ANCA, C3, C4, anti-GBM, SPEP- pending Hepatitis panel-negative. K/L ratio in range at 1.29. Hypernatremia-sodium level 151 today, yesterday's was 155. S/P D5W. On 1/2NS@ 125 ml/hr Increase free water to 400 ml every 4 hours via tube feeds Hypokalemia-replete as needed. On KCl 30 meq po daily Renally dose medications Strict I&O's daily Obtain daily weights Assess dialysis needs daily Monitor for renal recovery Plan of care reviewed by Dr. Nava Subjective Date of service: 01/21/22 Principal diagnosis: MAURI Interval history: Patient now with active COVID-19 positive infection, labs and chart reviewed Objective - Vital Signs Vital signs: Vital Signs - 12hr 01/21/22 01/21/22 07:21 10:00 O2 Sat by Pulse 100 99 Oximetry - Lab 01/20/22 04:39 01/21/22 05:50 Most recent lab results Calcium 8.5 mg/dL (8.4-10.2) 01/21/22 05:50 Phosphorus 3.60 mg/dL (2.5-4.5) 01/17/22 07:06 Magnesium 2.40 mg/dL (1.7-2.3) H 01/18/22 12:52 Urine Sodium 58 mmol/L 01/12/22 11:44 Medications & Allergies - Medications Allergies/Adverse Reactions: Allergies heparin Allergy (Verified 01/19/22 10:43) Unknown Home Medications: Home Medications Medication Instructions Recorded Confirmed Last Taken Type cephALEXin [Keflex] 500 mg PO Q6HR 7 Days #28 capsule 12/09/21 01/14/22 Unknown Rx Aspirin [[place] Aspirin EC] 81 mg PO QDAY 12/14/21 01/14/22 Unknown History Atorvastatin [Lipitor] 80 mg PO QHS 12/14/21 01/14/22 Unknown History Dapagliflozin Propanediol [Farxiga] 10 mg PO QDAY 12/14/21 01/14/22 Unknown History Insulin Detemir [Levemir VIAL] 25 unit SQ QHS 12/14/21 01/14/22 Unknown History Insulin Lispro [Admelog] 100 unit SQ ACHS 12/14/21 01/14/22 Unknown History Tamsulosin [Flomax] 0.4 mg PO QDAY 12/14/21 01/14/22 Unknown History carvediloL [Coreg] 3.125 mg PO BID 12/14/21 01/14/22 Unknown History Clopidogrel [Plavix] 75 mg PO QDAY tablet 12/27/21 01/14/22 Unknown Rx Sertraline [Zoloft] 100 mg PO QDAY #30 12/27/21 01/14/22 Unknown Rx Simple Syrup 15 ml FEEDTUBE PRN PRN oral.liqd 12/27/21 01/14/22 Unknown Rx Simple Syrup 30 ml FEEDTUBE PRN PRN oral.liqd 12/27/21 01/14/22 Unknown Rx Sodium Bicarbonate 325 mg FEEDTUBE PRN PRN #30 tablet 12/27/21 01/14/22 Unknown Rx Torsemide [Demadex] 20 mg PO QDAY #30 12/27/21 01/14/22 Unknown Rx Active Medications: Generic Name Dose Route Start Last Admin Trade Name Freq PRN Reason Stop Dose Admin Acetaminophen 650 mg 01/11/22 05:40 01/19/22 23:03 Acetaminophen 325 Mg Tab PO 650 mg Q4H PRN Administration Pain MILD(1-3)/Fever >100.5/ROGERS Albuterol 2.5 mg 01/11/22 05:40 Albuterol 2.5 Mg/3 Ml Nebu IH Q3HRT PRN Shortness Of Breath Lipase/Protease/Amylase 1 each 01/17/22 16:03 Lipase 10,500/Protease 25,000/Amylase 43,750 (Units) Dr Mariee FEEDTUBE PRN PRN For Clogged Feeding Tube Ascorbic Acid 1,000 mg 01/19/22 22:00 01/21/22 09:22 Ascorbic Acid 500 Mg Tab PO 1,000 mg BID ALEXSANDRA Administration Aspirin 81 mg 01/13/22 11:00 01/21/22 09:22 Aspirin 81 Mg Tab Chew FEEDTUBE 81 mg QDAY ALEXSANDRA Administration Atorvastatin Calcium 80 mg 01/11/22 22:00 01/20/22 22:15 Atorvastatin 40 Mg Tab PO 80 mg QHS ALEXSANDRA Administration Cholecalciferol 5,000 unit 01/20/22 10:00 01/21/22 09:22 Cholecalciferol (Vit D3) 5,000 Unit Tab PO 5,000 unit DAILY ALEXSANDRA Administration Clopidogrel Bisulfate 75 mg 01/11/22 10:00 01/21/22 09:25 Clopidogrel 75 Mg Tab PO 75 mg QDAY ALEXSANDRA Administration Dextrose 50 ml 01/11/22 05:40 Dextrose 50% In Water (25gm) 50 Ml Syringe IV Q30MIN PRN Hypoglycemia Protocol Famotidine 10 mg 01/13/22 11:00 01/21/22 09:22 Famotidine 10 Mg Tab FEEDTUBE 10 mg BID ALEXSANDRA Administration Hydralazine HCl 10 mg 01/11/22 05:54 Hydralazine 20 Mg/1 Ml Inj IV Q6H PRN Blood Pressure Cefepime HCl 1 gm in 100 mls @ 200 mls/hr 01/13/22 18:00 01/20/22 16:59 Cefepime/Ns 1 Gm/100 Ml IV 200 mls/hr QPM ALEXSANDRA Administration Protocol Sodium Chloride 100 mls @ 999 mls/hr 01/13/22 18:00 Nacl 0.9% IV ASHLEY PRN Hypotension Daptomycin 300 mg/ Sodium 100 mls @ 200 mls/hr 01/19/22 12:00 01/21/22 12:07 Chloride IV 200 mls/hr Q48H ALEXSANDRA Administration Protocol Sodium Chloride 1,000 mls @ 125 mls/hr 01/20/22 15:00 01/21/22 09:31 Nacl 0.45% 1000 Ml IV 125 mls/hr DIRECT ALEXSANDRA Administration Insulin Glargine 15 units 01/18/22 22:00 01/20/22 23:55 Insulin Glargine 100 Units/Ml SUB-Q 15 units HS ALEXSANDRA Administration Insulin Human Lispro 0 unit 01/11/22 06:00 01/21/22 12:07 Insulin Lispro 100 Unit/Ml SUB-Q 4 unit Q6HR ALEXSANDRA Administration Protocol Midodrine 10 mg 01/12/22 09:03 01/21/22 12:07 Midodrine 10 Mg Tab PO 10 mg TID@0800,1200,1600 ALEXSANDRA Administration Ondansetron HCl 4 mg 01/11/22 05:40 Ondansetron 4 Mg/2 Ml Inj IV Q8H PRN Nausea And Vomiting Potassium Chloride 30 meq 01/18/22 10:00 01/21/22 09:22 Potassium Chloride Er 10 Meq Tab PO 30 meq QDAY ALEXSANDRA Administration Prazosin HCl 5 mg 01/15/22 22:00 01/21/22 09:25 Prazosin 5 Mg Cap PO 5 mg Q12HR ALEXSANDRA Administration Simple Syrup 15 ml 01/17/22 16:03 Simple Syrup 15 Ml FEEDTUBE PRN PRN Hypoglycemia Simple Syrup 30 ml 01/17/22 16:03 Simple Syrup 15 Ml FEEDTUBE PRN PRN Hypoglycemia Sodium Bicarbonate 325 mg 01/17/22 16:03 Sodium Bicarbonate 325 Mg Tab FEEDTUBE PRN PRN For Clogged Feeding Tube Sodium Chloride 10 ml 01/11/22 10:00 01/21/22 09:22 Sodium Chloride 0.9% 10 Ml Flush Syringe IV 10 ml BID ALEXSANDRA Administration Sodium Chloride 10 ml 01/11/22 05:40 Sodium Chloride 0.9% 10 Ml Flush Syringe IV PRN PRN LINE FLUSH Sodium Hypochlorite 1 applic 01/14/22 10:00 01/21/22 09:38 Sodium Hypochlorite, Dakin's 1/2 Strength (0.25%) 473 Ml Topical Soln TP 0.25 applicatio BID ALEXSANDRA Administration Zinc Sulfate 220 mg 01/19/22 22:00 01/21/22 09:22 Zinc Sulfate 220 Mg Cap PO 220 mg BID ALEXSANDRA Administration
[2022-01-21] MEDS: FREE WATER PO SCH ×3 (14:38→21:18)
[2022-01-21] MEDS: CEFEPIME/NS 1 GM/100 ML 1 GM/100 ML BAG IV SCH (17:49)
[2022-01-21 19:00] LABS: Creatinine,Urine 61.8 mg/dL (0.1-20.0)
[2022-01-21 19:11] LABS: Patient Weight,Urine 124.7 lbs
[2022-01-21 20:01] LABS: Gamma Globulin 1.2 g/dL (0.8-1.7)
[2022-01-21] MEDS: INSULIN GLARGINE 100 UNITS/ML SUB-Q SCH (23:55)
[2022-01-22] MEDS: FREE WATER PO SCH ×6 (02:05→22:59)
[2022-01-22] MEDS: SODIUM CHLORIDE 0.45% 1000 ML 1,000 ML IV SCH (05:00)
[2022-01-22] MEDS: INSULIN LISPRO 100 UNIT/ML SUB-Q SCH ×4 (06:11→23:32)
[2022-01-22 06:57] LABS: C-Reactive Protein 3.1 mg/dL (0.00-1.30)
--- NOTE | 2022-01-22 08:44 | Progress Note ---
Assessment and Plan Assessment and plan: This is a 66-year-old male with known past medical history of hypertension, CVA, CHF, DM, dysphagia s/p PEGtube placement admitted for sepsis and MAURI Hospital Course to Date: 01/12: Patient remains encephalopathic but more awake, following simple commands. Still hypotensive this am, probable sepsis. Febrile overnight with worsening leukocytosis this am. Cultures are pending. Continue IVF hydration and empiric IV abx. Multiple wounds, including unstageable sacral decub and MRSA PCR positive. IV Vanco was also initiated, renal dose per pharmacy. ID consulted. Midodrine also added TID. General surgery and wound care was also consulted for wounds eval and treatment. Worsening renal function with hypernatremia and hyperkalemia also noted, continue IVF hydration per nephro. Worsening thrombocytopenia also noted, no s/s of any active bleeding. H&H stable. Hold AC for now, HIT panel ordered. Lantus qhs added for hyperglycemia, continue BG and SSI Q6hrs 01/13: Patient tolerating tube feeds via PEG, unsure why the patient who had a PEG got so dehydrated at the facility, it appears he was tolerating some PO and as a result PEG was not in use at the facility. He is for debridement tomorrow, will continue free water flushes-150CC Q6 Considering he is on HD, will reassess and stop tomorrow if improved, Keep NPO after Midnight Continue abx therapy, Mental status improving some Discharge planning when stable 01/14/ Na level improving, Cr stable after HD x2, cont iv fluid, follow renal recommendation, pending surgical eval for decubitus ulcer 01/15: Plan to hold hemodialysis today, creatinine IVF/stable. Status post bedside debridement of the decubitus ulcer by general surgery. Patient need deep debridement which is planned for tomorrow. N.p.o. after midnight. Co ntinue to follow BMP 01/16: Positive for COVID-19, moved to COVID floor. We will continue to follow inflammatory markers. cancelled deep debridement at the protocols today. We will continue to follow. Not a candidate for remdesivir due to renal failure, oxygen requirement has not changed, will hold dexamethasone. Continue to follow 01/17: BP remains very soft today, will initiate IV fluid, continue to monitor clinically. Monitor renal function and inflammatory markers. add long acting insulin for hyperglycemia 01/18: K 2.8 today, cont to replete, ordered CT head worsening encephalopathy, c ont restrain. Patient remians confused, follow inflammatory markers. follow BMP 01/19: patient on RA, remains confused. Na 150 today, changed iv fluid to D5w and increased free water with TF. follow inflammatory markers. D-dimer >1000, will change heparin to eliquis 2.[address] head w/o any changes 01/21/22; severe sepsis currently patient is on cefepime and daptomycin per ID Sacral decubitus ulcer, surgery following, awaiting debridement 7 days after COVID is positive for OR protocols 01/22/22 possible decubitus ulcer debridement tomorrow per surgery Patient is n.p.o. status from midnight Assessment and Plan #Acute Metabolic Encephalopathy - Multifactorial: probably due to azotemia vs hypernatremia, vs infectious process - on Continous IVF hydration and empiric IV abx - Mentation with mild improvement, following simple commands - CT head no changes - Frequent reorientation - Avoid sedatives agents - Maintenance of sleep-wake cycle #Hypotension 2/2 #Sepsis Vs hypovolemia #H/o Congestive Heart Failure(CHF) - Presented with tachycardia and hypotension - Patient remains hypotension this am, was febrile overnight and worsen leukocytosis this am - 12/14/21 Ech reviewed EF 45-50%, patient appear hypovolemic and dry - Continue IVF hydration per Nephro - Hold home antihypertensive agents - Midodrine added - cont. IVF, increased free water with TF for hypernatremia - Continue blood pressure monitor per protocol - Maintain MAP above 65 - Strict intake and output and daily weight #Acute Kidney Injury(MAURI) most likely ATN, placed on HD #Hypernatremia #Hyperkalemia, resolved # hypokalemia - probably due to hypotension/hypovelemia - Per record Scr. was 1.2 from last admit on 12/2021 - Scr. as high as 5.9, BUN 111 - s/p X1 dose of kayexalate, FWF for hypernatremia - Nephrology on consult, appreciated recommendation - no hydronephrosis on renal US - Strict intake and output - Avoid nephrotoxic medications; Renally dose medications - Vallecillo in place, initiated on HD 01/14 - replete electrolytes as needed #Severe Sepsis- multifactorial #Acute cystitis/UTI/VRE UTI # Positive Covid 19 #Infected Sacral Decubitis Ulcer/Proteus mirabilis #Leukocytosis #Lactic Acidosis - Presented with tachycardia and hypotension - Patient remains hypotension this am, was febrile overnight and worsen leukocytosis this am - Cultures pending, MRSA PCR positive - With multiple wounds, including malodourous, unstageable sacral decubitis. -Patient is on cefepime and daptomycin per ID - General Surgery consulted for possible debridement, wound care eval and treat - Wound care also consulted #Dysphagia s/p PEGtube Placement - Nutrition consulted - Initiated enteral nutrition #Thrombocytopenia - Presented with low plt - Plt count worsen this am - no s/s of any active bleeding - Will hold AC- heparin SubQ for now - H&H stable - HIT panel ordered #Type 2 Diabetes with Hyperglycemia - Continue BG and SSI Q6hrs - Lantus added qHs - While critically ill target blood glucose of 140-180 #GI/DVT Prophylaxis - PPI- Pepcid - SCDs to bilateral lower extremities while in bed Consults and recommendations noted and appreciated Closely monitor the patient and adjust management as needed Plan of care reviewed with patient and his nurse DC planning per case management/SNF placement COVID-19 PCR positive Rapid PCR test negative C. difficile negative Home O2 evaluation prior to discharge History Interval history: COVID-19 positive patient patient patient's chart and medications reviewed Isolation precautions and PPE protocol strictly follow I have seen and examined the patient at the bedside Patient's chart and medications reviewed No new events reported by the nursing Vital signs noted Patient is saturating well on nasal cannula oxygen Hospitalist Physical - Constitutional Vitals: Temp Pulse Resp BP Pulse Ox 98.5 F 61 18 114/51 97 01/22/22 05:08 01/22/22 05:08 01/22/22 05:08 01/22/22 05:08 01/22/22 05:08 General appearance: Present: no acute distress, cachectic, other (Noncommunicative) - EENT Eyes: Present: PERRL, EOM intact - Neck Neck: Present: supple, normal ROM - Respiratory Respiratory effort: normal Respiratory: bilateral: diminished, negative: rales, rhonchi, wheezing - Cardiovascular Rhythm: regular Heart Sounds: Present: S1 & S2 - Extremities Extremities: no ischemia, No edema (Next) - Abdominal General gastrointestinal: soft, non-tender, non-distended, normal bowel sounds - Integumentary Integumentary: Present: clear, warm - Psychiatric Psychiatric: appropriate mood/affect, cooperative - Neurologic Neurologic: moves all extremities Results - Labs CBC & Chem 7: 01/20/22 04:39 01/22/22 06:10 Labs: Laboratory Last Values WBC 11.7 K/mm3 (4.5-11.0) H 01/20/22 04:39 RBC 3.93 M/mm3 (3.65-5.03) 01/20/22 04:39 Hgb 10.6 gm/dl (11.8-15.2) L 01/20/22 04:39 Hct 33.5 % (35.5-45.6) L 01/20/22 04:39 MCV 85 fl (84-94) 01/20/22 04:39 MCH 27 pg (28-32) L 01/20/22 04:39 MCHC 32 % (32-34) 01/20/22 04:39 RDW 25.4 % (13.2-15.2) H 01/20/22 04:39 Plt Count 70 K/mm3 (140-440) L 01/20/22 04:39 [place] % (Auto) 4.2 % (0.0-7.3) 01/17/22 07:06 Eos % (Auto) 1.0 % (0.0-4.3) 01/17/22 07:06 [place] # (Auto) 0.5 K/mm3 (0.0-0.8) 01/17/22 07:06 Eos # (Auto) 0.1 K/mm3 (0.0-0.4) 01/17/22 07:06 Baso # (Auto) 0.1 K/mm3 (0.0-0.1) 01/17/22 07:06 Add Manual Diff Complete 01/20/22 04:39 Total Counted 100 01/20/22 04:39 Seg Neutrophils % Senior Sales Representative 01/17/22 07:06 Seg Neuts % (Manual) 87.0 % (40.0-70.0) H 01/20/22 04:39 Band Neutrophils % 1.0 % 01/20/22 04:39 Lymphocytes % (Manual) 4.0 % (13.4-35.0) L 01/20/22 04:39 Reactive Lymphs % (Man) 0 % 01/20/22 04:39 Monocytes % (Manual) 5.0 % (0.0-7.3) 01/20/22 04:39 Eosinophils % (Manual) 2.0 % (0.0-4.3) 01/20/22 04:39 Basophils % (Manual) 0 % (0.0-1.8) 01/20/22 04:39 Metamyelocytes % 1.0 % 01/20/22 04:39 Myelocytes % 0 % 01/20/22 04:39 Promyelocytes % 0 % 01/20/22 04:39 Blast Cells % 0 % 01/20/22 04:39 Nucleated RBC % Not Reportable 01/20/22 04:39 Seg Neutrophils # 11.3 K/mm3 (1.8-7.7) H 01/17/22 07:06 Seg Neutrophils # Man 10.2 K/mm3 (1.8-7.7) H 01/20/22 04:39 Band Neutrophils # 0.1 K/mm3 01/20/22 04:39 Lymphocytes # (Manual) 0.5 K/mm3 (1.2-5.4) L 01/20/22 04:39 Abs React Lymphs (Man) 0.0 K/mm3 01/20/22 04:39 Monocytes # (Manual) 0.6 K/mm3 (0.0-0.8) 01/20/22 04:39 Eosinophils # (Manual) 0.2 K/mm3 (0.0-0.4) 01/20/22 04:39 Basophils # (Manual) 0.0 K/mm3 (0.0-0.1) 01/20/22 04:39 Metamyelocytes # 0.1 K/mm3 01/20/22 04:39 Myelocytes # 0.0 K/mm3 01/20/22 04:39 Promyelocytes # 0.0 K/mm3 01/20/22 04:39 Blast Cells # 0.0 K/mm3 01/20/22 04:39 WBC Morphology Not Reportable 01/20/22 04:39 Hypersegmented Neuts Not Reportable 01/20/22 04:39 Hyposegmented Neuts Not Reportable 01/20/22 04:39 Hypogranular Neuts Not Reportable 01/20/22 04:39 Smudge Cells Not Reportable 01/20/22 04:39 Toxic Granulation Not Reportable 01/20/22 04:39 Toxic Vacuolation Not Reportable 01/20/22 04:39 Dohle Bodies Not Reportable 01/20/22 04:39 Pelger-Huet Anomaly Not Reportable 01/20/22 04:39 Sarah Rods Not Reportable 01/20/22 04:39 Platelet Estimate Consistent w auto 01/20/22 04:39 Clumped Platelets Not Reportable 01/20/22 04:39 Plt Clumps, EDTA Not Reportable 01/20/22 04:39 Large Platelets Not Reportable 01/20/22 04:39 Giant Platelets Not Reportable 01/20/22 04:39 Platelet Satelliting Not Reportable 01/20/22 04:39 Plt Morphology Comment Not Reportable 01/20/22 04:39 RBC Morphology Not Reportable 01/20/22 04:39 Dimorphic RBCs Not Reportable 01/20/22 04:39 Polychromasia Not Reportable 01/20/22 04:39 Hypochromasia 1+ 01/20/22 04:39 Poikilocytosis Not Reportable 01/20/22 04:39 Anisocytosis 2+ 01/20/22 04:39 Microcytosis Not Reportable 01/20/22 04:39 Macrocytosis Not Reportable 01/20/22 04:39 Spherocytes Not Reportable 01/20/22 04:39 Pappenheimer Bodies Not Reportable 01/20/22 04:39 Sickle Cells Not Reportable 01/20/22 04:39 Target Cells Not Reportable 01/20/22 04:39 Tear Drop Cells Not Reportable 01/20/22 04:39 Ovalocytes Not Reportable 01/20/22 04:39 Helmet Cells Not Reportable 01/20/22 04:39 [place] Bodies Not Reportable 01/20/22 04:39 [place] Rings Not Reportable 01/20/22 04:39 Kwabena Cells Not Reportable 01/20/22 04:39 Bite Cells Not Reportable 01/20/22 04:39 Crenated Cell Not Reportable 01/20/22 04:39 Elliptocytes Not Reportable 01/20/22 04:39 Acanthocytes (Spur) Not Reportable 01/20/22 04:39 Rouleaux Not Reportable 01/20/22 04:39 Hemoglobin C Crystals Not Reportable 01/20/22 04:39 Schistocytes Not Reportable 01/20/22 04:39 Malaria parasites Not Reportable 01/20/22 04:39 Jigar Bodies Not Reportable 01/20/22 04:39 Hem Pathologist Commnt No 01/20/22 04:39 D-Dimer 940.59 ng/mlDDU (0-234) H 01/20/22 04:39 Heparin Anti-Xa, Unfract Negative (Negative) 01/13/22 04:56 Sodium 144 mmol/L (137-145) 01/22/22 06:10 Potassium 3.8 mmol/L (3.6-5.0) 01/22/22 06:10 Chloride 112.7 mmol/L (98-107) H 01/22/22 06:10 Carbon Dioxide 23 mmol/L (22-30) 01/22/22 06:10 Anion Gap 12 mmol/L 01/22/22 06:10 BUN 82 mg/dL (9-20) H 01/22/22 06:10 Creatinine 1.9 mg/dL (0.8-1.3) H 01/22/22 06:10 Estimated GFR 36 ml/min 01/22/22 06:10 BUN/Creatinine Ratio 43 % 01/22/22 06:10 Glucose 256 mg/dL (75-100) H 01/22/22 06:10 POC Glucose 228 mg/dL (70-105) H 01/22/22 05:26 Lactic Acid 1.70 mmol/L (0.7-2.0) 01/13/22 04:56 Calcium 8.0 mg/dL (8.4-10.2) L 01/22/22 06:10 Phosphorus 3.60 mg/dL (2.5-4.5) 01/17/22 07:06 Magnesium 2.40 mg/dL (1.7-2.3) H 01/18/22 12:52 Ferritin 560.7 ng/mL (30.0-300.0) H 01/20/22 04:39 Total Bilirubin 0.60 mg/dL (0.1-1.2) 01/11/22 03:08 Direct Bilirubin 0.3 mg/dL (0-0.2) H 01/11/22 03:08 Indirect Bilirubin 0.3 mg/dL 01/11/22 03:08 AST 45 units/L (5-40) H 01/11/22 03:08 ALT 29 units/L (7-56) 01/11/22 03:08 Alkaline Phosphatase 180 units/L (35-129) H 01/11/22 03:08 Lactate Dehydrogenase 334 units/L (91-180) H 01/20/22 04:39 Total Creatine Kinase 15 units/L (55-170) L 01/20/22 04:39 C-Reactive Protein 3.10 mg/dL (0.00-1.30) H 01/22/22 06:10 Serum Total Protein 5.4 g/dL (6.1-8.1) L 01/15/22 08:41 Total Protein 7.3 g/dL (6.3-8.2) 01/11/22 03:08 Albumin 2.0 g/dL (3.8-4.8) L 01/15/22 08:41 Albumin/Globulin Ratio 0.5 % 01/11/22 03:08 Tdbsw-9-Uistftilc 0.5 g/dL (0.2-0.3) H 01/15/22 08:41 Atbjg-2-Dcaqbrbzy 0.9 g/dL (0.5-0.9) 01/15/22 08:41 Beta Globulins 0.6 g/dL (0.2-0.5) H 01/15/22 08:41 Gamma Globulins 1.2 g/dL (0.8-1.7) 01/15/22 08:41 Abnorm Protein Band 1 see below 01/15/22 08:41 PEP Interpretation see below H 01/15/22 08:41 Serotonin Release Assay See scanned result 01/13/22 04:56 Procalcitonin 0.74 ng/mL (<0.15) 01/20/22 04:39 Urine Color Claudia (Yellow) 01/12/22 11:44 Urine Turbidity Cloudy (Clear) 01/12/22 11:44 Urine pH 5.0 (5.0-7.0) 01/12/22 11:44 Ur Specific [place] 1.030 (1.003-1.030) 01/12/22 11:44 Urine Protein 30 mg/dl mg/dL (Negative) 01/12/22 11:44 Urine Glucose (UA) Negative mg/dL (Negative) 01/12/22 11:44 Urine Ketones Negative mg/dL (Negative) 01/12/22 11:44 Urine Blood Moderate (Negative) A 01/12/22 11:44 Urine Nitrite Negative (Negative) 01/12/22 11:44 Ur Reducing Substances Not Reportable 01/12/22 11:44 Urine Bilirubin Negative (Negative) 01/12/22 11:44 Urine Ictotest Not Reportable 01/12/22 11:44 Urine Urobilinogen 0.0 mg/dL (<2.0) 01/12/22 11:44 Ur Leukocyte Esterase Trace (Negative) 01/12/22 11:44 Urine WBC (Auto) > 182.0 /HPF (0.0-6.0) H 01/12/22 11:44 Urine RBC (Auto) 12.0 /HPF (0.0-6.0) 01/12/22 11:44 Urine Bacteria (Auto) 2+ /HPF (Negative) 01/12/22 11:44 Urine WBC Clumps 3+ /HPF 01/11/22 07:14 Urine Mucus Few /HPF 01/12/22 11:44 Urine Total Volume 1700 ml 01/20/22 17:30 Urine Creatinine 61.8 mg/dL (0.1-20.0) H 01/20/22 17:30 Height (in) 70.0 inches 01/20/22 17:30 Weight (lb) 124.7 lbs 01/20/22 17:30 Creatinine Clearance 28 01/20/22 17:30 Urine Sodium 58 mmol/L 01/12/22 11:44 Nasal Screen MRSA (PCR) Positive (Negative) 01/12/22 Unknown Random Vancomycin 10.3 ug/mL (0-40.0) 01/18/22 07:50 KAMILLA Screen Negative (Negative) 01/14/22 05:47 Proteinase 3 (PR3) Ab <1.0 AI (<1.0) 01/13/22 18:40 Myeloperoxidase Ab <1.0 AI (<1.0) 01/13/22 18:40 Heparin-induced Plt Ab Positive (Negative) H 01/13/22 04:56 UF Heparin High Dose 3 % Release 01/13/22 04:56 BRYCE UFH Low Dose 0.1 4 % Release 01/13/22 04:56 BRYCE UFH Low Dose 0.5 5 % Release 01/13/22 04:56 Complement C3 203 mg/dL (82-185) H 01/15/22 08:41 Complement C4 52 mg/dL (15-53) 01/15/22 08:41 C. difficile Tox (PCR) Negative (Negative) 01/15/22 11:32 Coronavirus (PCR) Positive (Negative) A 01/15/22 10:30 Hepatitis A IgM Ab Non-reactive (NonReactive) 01/13/22 18:40 Hep Bs Antigen Non-reactive (Negative) 01/13/22 18:40 Hep B Core IgM Ab Non-reactive (NonReactive) 01/13/22 18:40 Hepatitis C Antibody Non-reactive (NonReactive) 01/13/22 18:40 Miscellaneous Test Flexitest 1 H 01/13/22 18:40 [place]/IV: Voiding Method Indwelling Catheter Active Medications - Current Medications Current Medications: Generic Name Dose Route Start Last Admin Trade Name Freq PRN Reason Stop Dose Admin Acetaminophen 650 mg 01/11/22 05:40 01/19/22 23:03 Acetaminophen 325 Mg Tab PO 650 mg Q4H PRN Administration Pain MILD(1-3)/Fever >100.5/ROGERS Albuterol 2.5 mg 01/11/22 05:40 Albuterol 2.5 Mg/3 Ml Nebu IH Q3HRT PRN Shortness Of Breath Lipase/Protease/Amylase 1 each 01/17/22 16:03 Lipase 10,500/Protease 25,000/Amylase 43,750 (Units) Dr Mariee FEEDTUBE PRN PRN For Clogged Feeding Tube Ascorbic Acid 1,000 mg 01/19/22 22:00 01/21/22 21:21 Ascorbic Acid 500 Mg Tab PO 1,000 mg BID ALEXSANDRA Administration Aspirin 81 mg 01/13/22 11:00 01/21/22 09:22 Aspirin 81 Mg Tab Chew FEEDTUBE 81 mg QDAY ALEXSANDRA Administration Atorvastatin Calcium 80 mg 01/11/22 22:00 01/21/22 21:20 Atorvastatin 40 Mg Tab PO 80 mg QHS ALEXSANDRA Administration Cholecalciferol 5,000 unit 01/20/22 10:00 01/21/22 09:22 Cholecalciferol (Vit D3) 5,000 Unit Tab PO 5,000 unit DAILY ALEXSANDRA Administration Clopidogrel Bisulfate 75 mg 01/11/22 10:00 01/21/22 09:25 Clopidogrel 75 Mg Tab PO 75 mg QDAY ALEXSANDRA Administration Dextrose 50 ml 01/11/22 05:40 Dextrose 50% In Water (25gm) 50 Ml Syringe IV Q30MIN PRN Hypoglycemia Protocol Famotidine 10 mg 01/13/22 11:00 01/21/22 21:20 Famotidine 10 Mg Tab FEEDTUBE 10 mg BID ALEXSANDRA Administration Hydralazine HCl 10 mg 01/11/22 05:54 Hydralazine 20 Mg/1 Ml Inj IV Q6H PRN Blood Pressure Cefepime HCl 1 gm in 100 mls @ 200 mls/hr 01/13/22 18:00 01/21/22 17:49 Cefepime/Ns 1 Gm/100 Ml IV 200 mls/hr QPM ALEXSANDRA Administration Protocol Sodium Chloride 100 mls @ 999 mls/hr 01/13/22 18:00 Nacl 0.9% IV ASHLEY PRN Hypotension Daptomycin 300 mg/ Sodium 100 mls @ 200 mls/hr 01/19/22 12:00 01/21/22 12:07 Chloride IV 200 mls/hr Q48H ALEXSANDRA Administration Protocol Sodium Chloride 1,000 mls @ 125 mls/hr 01/20/22 15:00 01/22/22 05:00 Nacl 0.45% 1000 Ml IV 125 mls/hr DIRECT ALEXSANDRA Administration Insulin Glargine 15 units 01/18/22 22:00 01/21/22 23:55 Insulin Glargine 100 Units/Ml SUB-Q 15 units HS ALEXSANDRA Administration Insulin Human Lispro 0 unit 01/11/22 06:00 01/22/22 06:11 Insulin Lispro 100 Unit/Ml SUB-Q 4 unit Q6HR ALEXSANDRA Administration Protocol Midodrine 10 mg 01/12/22 09:03 01/21/22 15:25 Midodrine 10 Mg Tab PO 10 mg TID@0800,1200,1600 ALEXSANDRA Administration Ondansetron HCl 4 mg 01/11/22 05:40 Ondansetron 4 Mg/2 Ml Inj IV Q8H PRN Nausea And Vomiting Potassium Chloride 30 meq 01/18/22 10:00 01/21/22 09:22 Potassium Chloride Er 10 Meq Tab PO 30 meq QDAY ALEXSANDRA Administration Prazosin HCl 5 mg 01/15/22 22:00 01/21/22 21:36 Prazosin 5 Mg Cap PO 5 mg Q12HR ALEXSANDRA Administration Simple Syrup 15 ml 01/17/22 16:03 Simple Syrup 15 Ml FEEDTUBE PRN PRN Hypoglycemia Simple Syrup 30 ml 01/17/22 16:03 Simple Syrup 15 Ml FEEDTUBE PRN PRN Hypoglycemia Sodium Bicarbonate 325 mg 01/17/22 16:03 Sodium Bicarbonate 325 Mg Tab FEEDTUBE PRN PRN For Clogged Feeding Tube Sodium Chloride 10 ml 01/11/22 10:00 01/21/22 21:21 Sodium Chloride 0.9% 10 Ml Flush Syringe IV 10 ml BID ALEXSANDRA Administration Sodium Chloride 10 ml 01/11/22 05:40 Sodium Chloride 0.9% 10 Ml Flush Syringe IV PRN PRN LINE FLUSH Sodium Hypochlorite 1 applic 01/14/22 10:00 01/21/22 21:19 Sodium Hypochlorite, Dakin's 1/2 Strength (0.25%) 473 Ml Topical Soln TP 1 applicatio BID ALEXSANDRA Administration Zinc Sulfate 220 mg 01/19/22 22:00 01/21/22 21:21 Zinc Sulfate 220 Mg Cap PO 220 mg BID ALEXSANDRA Administration Nutrition/Malnutrition Assess - Dietary Evaluation Nutrition/Malnutrition Findings: Nutrition Notes Start: 01/12/22 13:45 Freq: Status: Active Protocol: Document 01/21/22 16:43 JARON (Rec: 01/21/22 17:02 JARON [id number]) Nutrition Notes Initial or Follow up Brief Note Current Diagnosis Acute Kidney Injury,CKD(stage I-IV),Decubitus(Pressure Ulcer ),Diabetes,Sepsis,Hypertension ,Stroke Other Pertinent Diagnosis CHF, Metabolic Encephalopathy, COVID-19, SIRS. Current Diet TF-Glucerna 1.2 Nicolas @ 75 ml/hr (since D 01/19). Height 5 ft 10 in Weight 56.69 kg [place] Body Weight (kg) 75.45 BMI 17.9 Weight change and time frame No body weight change reported in 10 days Weight Status Underweight Subjective/Other Information RD consult for routine F/U on TF tolerance/continuation. TF continues as prescribed, no reports on tolerance available at the time, will assess at F/U. Pt is on Room Air, O2 saturation @ 100%, according to Physical Assessment History notes. Percent of energy/protein needs met: Prescribed TF-Glucerna 1.2 Nicolas @ 75 ml/hr provides for energy/protein needs (2,160 Kcal/108 g) during LOS, 95% Kcal; 100% AA. #2 Nutrition Diagnosis Malnutrition Diagnosis Progress(for reassessment Continues documentation) #1 Nutrition Diagnosis Swallowing difficulty Diagnosis Progress(for reassessment Continues documentation) Is patient on ventilator? No Is Patient Ambulatory and/or Out of Bed No REE-([facility]-confined to bed) 1635.336 Kcal/Kg value to use for calculation 40 Approximate Energy Requirements Using 2268 kcal/Kg Calculation Used for Recommendations Kcal/kg Additional Notes Protein: 1.5-2 g/Kg IBW; 85- 113 g/day. Fluids: 1 ml/Kcal, or as per MD. Nutrition Intervention Nutrition Support: Continue TF-Glucerna 1.2 Nicolas @ 75 ml/hr. Flush: 120 ml water Q 4 hr, or as per MD. Kcal 2,160 Protein (gm) 108 Carbohydrates (gm) 206 Fat (gm) 108 Fluid (mL) 1,449 Fiber (gm) 29 % RDI: 95% Kcal; 100% AA. Goal #1 Provide at least 75% of energy /protein needs through Enteral Feeding during LOS. Follow-Up By: 01/28/22 Additional Comments Continue monitoring TF tolerance and BM.
--- NOTE | 2022-01-22 08:49 | Progress Note ---
Assessment and Plan Acute metabolic encephalopathy MAURI (acute kidney injury) Hypertension Congestive heart failure Diabetes Hypernatremia SIRS (systemic inflammatory response syndrome COVID-positive Plan: Cr is improving with adequate Cr clearance will request to remove vascath Renally dose medications Strict I&O's daily Obtain daily weights Assess dialysis needs daily Subjective Date of service: 01/22/22 Principal diagnosis: MAURI Interval history: no overnight events Objective - Vital Signs Vital signs: Vital Signs - 12hr 01/21/22 01/21/22 01/21/22 21:32 21:36 22:00 Temperature 97.8 F Pulse Rate 66 66 Respiratory 18 Rate Blood Pressure 141/61 Blood Pressure 141/61 [Right] O2 Sat by Pulse 98 100 Oximetry 01/22/22 01/22/22 00:00 05:08 Temperature 98.5 F Pulse Rate 64 61 Respiratory 18 Rate Blood Pressure Blood Pressure 114/51 [Right] O2 Sat by Pulse 97 Oximetry - Lab 01/20/22 04:39 01/22/22 06:10 Most recent lab results Calcium 8.0 mg/dL (8.4-10.2) L 01/22/22 06:10 Phosphorus 3.60 mg/dL (2.5-4.5) 01/17/22 07:06 Magnesium 2.40 mg/dL (1.7-2.3) H 01/18/22 12:52 Urine Creatinine 61.8 mg/dL (0.1-20.0) H 01/20/22 17:30 Urine Sodium 58 mmol/L 01/12/22 11:44 Medications & Allergies - Medications Allergies/Adverse Reactions: Allergies heparin Allergy (Verified 01/19/22 10:43) Unknown Home Medications: Home Medications Medication Instructions Recorded Confirmed Last Taken Type cephALEXin [Keflex] 500 mg PO Q6HR 7 Days #28 capsule 12/09/21 01/14/22 Unknown Rx Aspirin [[place] Aspirin EC] 81 mg PO QDAY 12/14/21 01/14/22 Unknown History Atorvastatin [Lipitor] 80 mg PO QHS 12/14/21 01/14/22 Unknown History Dapagliflozin Propanediol [Farxiga] 10 mg PO QDAY 12/14/21 01/14/22 Unknown History Insulin Detemir [Levemir VIAL] 25 unit SQ QHS 12/14/21 01/14/22 Unknown History Insulin Lispro [Admelog] 100 unit SQ ACHS 12/14/21 01/14/22 Unknown History Tamsulosin [Flomax] 0.4 mg PO QDAY 12/14/21 01/14/22 Unknown History carvediloL [Coreg] 3.125 mg PO BID 12/14/21 01/14/22 Unknown History Clopidogrel [Plavix] 75 mg PO QDAY tablet 12/27/21 01/14/22 Unknown Rx Sertraline [Zoloft] 100 mg PO QDAY #30 12/27/21 01/14/22 Unknown Rx Simple Syrup 15 ml FEEDTUBE PRN PRN oral.liqd 12/27/21 01/14/22 Unknown Rx Simple Syrup 30 ml FEEDTUBE PRN PRN oral.liqd 12/27/21 01/14/22 Unknown Rx Sodium Bicarbonate 325 mg FEEDTUBE PRN PRN #30 tablet 12/27/21 01/14/22 Unknown Rx Torsemide [Demadex] 20 mg PO QDAY #30 12/27/21 01/14/22 Unknown Rx Active Medications: Generic Name Dose Route Start Last Admin Trade Name Freq PRN Reason Stop Dose Admin Acetaminophen 650 mg 01/11/22 05:40 01/19/22 23:03 Acetaminophen 325 Mg Tab PO 650 mg Q4H PRN Administration Pain MILD(1-3)/Fever >100.5/ROGERS Albuterol 2.5 mg 01/11/22 05:40 Albuterol 2.5 Mg/3 Ml Nebu IH Q3HRT PRN Shortness Of Breath Lipase/Protease/Amylase 1 each 01/17/22 16:03 Lipase 10,500/Protease 25,000/Amylase 43,750 (Units) Dr Mariee FEEDTUBE PRN PRN For Clogged Feeding Tube Ascorbic Acid 1,000 mg 01/19/22 22:00 01/21/22 21:21 Ascorbic Acid 500 Mg Tab PO 1,000 mg BID ALEXSANDRA Administration Aspirin 81 mg 01/13/22 11:00 01/21/22 09:22 Aspirin 81 Mg Tab Chew FEEDTUBE 81 mg QDAY ALEXSANDRA Administration Atorvastatin Calcium 80 mg 01/11/22 22:00 01/21/22 21:20 Atorvastatin 40 Mg Tab PO 80 mg QHS ALEXSANDRA Administration Cholecalciferol 5,000 unit 01/20/22 10:00 01/21/22 09:22 Cholecalciferol (Vit D3) 5,000 Unit Tab PO 5,000 unit DAILY ALEXSANDRA Administration Clopidogrel Bisulfate 75 mg 01/11/22 10:00 01/21/22 09:25 Clopidogrel 75 Mg Tab PO 75 mg QDAY ALEXSANDRA Administration Dextrose 50 ml 01/11/22 05:40 Dextrose 50% In Water (25gm) 50 Ml Syringe IV Q30MIN PRN Hypoglycemia Protocol Famotidine 10 mg 01/13/22 11:00 01/21/22 21:20 Famotidine 10 Mg Tab FEEDTUBE 10 mg BID ALEXSANDRA Administration Hydralazine HCl 10 mg 01/11/22 05:54 Hydralazine 20 Mg/1 Ml Inj IV Q6H PRN Blood Pressure Cefepime HCl 1 gm in 100 mls @ 200 mls/hr 01/13/22 18:00 01/21/22 17:49 Cefepime/Ns 1 Gm/100 Ml IV 200 mls/hr QPM ALEXSANDRA Administration Protocol Sodium Chloride 100 mls @ 999 mls/hr 01/13/22 18:00 Nacl 0.9% IV ASHLEY PRN Hypotension Daptomycin 300 mg/ Sodium 100 mls @ 200 mls/hr 01/19/22 12:00 01/21/22 12:07 Chloride IV 200 mls/hr Q48H ALEXSANDRA Administration Protocol Sodium Chloride 1,000 mls @ 125 mls/hr 01/20/22 15:00 01/22/22 05:00 Nacl 0.45% 1000 Ml IV 125 mls/hr DIRECT ALEXSANDRA Administration Insulin Glargine 15 units 01/18/22 22:00 01/21/22 23:55 Insulin Glargine 100 Units/Ml SUB-Q 15 units HS ALEXSANDRA Administration Insulin Human Lispro 0 unit 01/11/22 06:00 01/22/22 06:11 Insulin Lispro 100 Unit/Ml SUB-Q 4 unit Q6HR ALEXSANDRA Administration Protocol Midodrine 10 mg 01/12/22 09:03 01/21/22 15:25 Midodrine 10 Mg Tab PO 10 mg TID@0800,1200,1600 ALEXSANDRA Administration Ondansetron HCl 4 mg 01/11/22 05:40 Ondansetron 4 Mg/2 Ml Inj IV Q8H PRN Nausea And Vomiting Potassium Chloride 30 meq 01/18/22 10:00 01/21/22 09:22 Potassium Chloride Er 10 Meq Tab PO 30 meq QDAY ALEXSANDRA Administration Prazosin HCl 5 mg 01/15/22 22:00 01/21/22 21:36 Prazosin 5 Mg Cap PO 5 mg Q12HR ALEXSANDRA Administration Simple Syrup 15 ml 01/17/22 16:03 Simple Syrup 15 Ml FEEDTUBE PRN PRN Hypoglycemia Simple Syrup 30 ml 01/17/22 16:03 Simple Syrup 15 Ml FEEDTUBE PRN PRN Hypoglycemia Sodium Bicarbonate 325 mg 01/17/22 16:03 Sodium Bicarbonate 325 Mg Tab FEEDTUBE PRN PRN For Clogged Feeding Tube Sodium Chloride 10 ml 01/11/22 10:00 01/21/22 21:21 Sodium Chloride 0.9% 10 Ml Flush Syringe IV 10 ml BID ALEXSANDRA Administration Sodium Chloride 10 ml 01/11/22 05:40 Sodium Chloride 0.9% 10 Ml Flush Syringe IV PRN PRN LINE FLUSH Sodium Hypochlorite 1 applic 01/14/22 10:00 01/21/22 21:19 Sodium Hypochlorite, Dakin's 1/2 Strength (0.25%) 473 Ml Topical Soln TP 1 applicatio BID ALEXSANDRA Administration Zinc Sulfate 220 mg 01/19/22 22:00 01/21/22 21:21 Zinc Sulfate 220 Mg Cap PO 220 mg BID ALEXSANDRA Administration
[2022-01-22] MEDS: POTASSIUM CHLORIDE ER 10 MEQ TAB PO SCH (10:00)
[2022-01-22] MEDS: ASPIRIN 81 MG TAB CHEW FEEDTUBE SCH (10:12)
[2022-01-22] MEDS: FAMOTIDINE 10 MG TAB FEEDTUBE SCH ×2 (10:12→22:51)
[2022-01-22] MEDS: ASCORBIC ACID 500 MG TAB PO SCH ×2 (10:12→22:50)
[2022-01-22] MEDS: MIDODRINE 10 MG TAB PO SCH ×3 (10:13→17:37)
[2022-01-22] MEDS: CLOPIDOGREL 75 MG TAB PO SCH (10:14)
[2022-01-22] MEDS: ZINC SULFATE 220 MG CAP PO SCH ×2 (10:14→22:51)
[2022-01-22] MEDS: SODIUM HYPOCHLORITE, DAKIN'S 1/2 STRENGTH (0.25%) 473 ML TOPICAL SOLN TP SCH ×2 (10:15→22:49)
[2022-01-22] MEDS: CHOLECALCIFEROL (VIT D3) 5,000 UNIT TAB PO SCH (10:16)
[2022-01-22] MEDS: PRAZOSIN 5 MG CAP PO SCH ×2 (10:17→22:58)
--- NOTE | 2022-01-22 10:21 | Progress Note ---
Assessment and Plan pt appears more aware of surroundings. Nursing reports freq bm. Wound irrig with dakins solution ordered bid and prn fecal soilage. Stool for C diff requested. Cont signs of deep tissue necrosis on wound exam pt will need to go to or for d ebridement. Patient with sacral decubitus extent of ulcer likely to the level of the periosteum on the sacrum. Plan debridement of sacral decubitus tomorrow. Subjective Date of service: 01/22/22 Patient Reports: Positive: no new complaints Narrative: Plan debridement of sacral decubitus tomorrow. Objective Vital Signs - 12hr 01/22/22 01/22/22 00:00 05:08 Temperature 98.5 F Pulse Rate 64 61 Respiratory 18 Rate Blood Pressure 114/51 [Right] O2 Sat by Pulse 97 Oximetry - Labs 01/20/22 04:39 01/22/22 06:10 Diabetes panel 01/15/22 01/22/22 Range/Units 08:41 06:10 Sodium 144 (137-145) mmol/L Potassium 3.8 (3.6-5.0) mmol/L Chloride 112.7 H (98-107) mmol/L Carbon Dioxide 23 (22-30) mmol/L BUN 82 H (9-20) mg/dL Creatinine 1.9 H (0.8-1.3) mg/dL Glucose 256 H (75-100) mg/dL Calcium 8.0 L (8.4-10.2) mg/dL Albumin 2.0 L (3.8-4.8) g/dL Calcium panel 01/15/22 01/22/22 Range/Units 08:41 06:10 Calcium 8.0 L (8.4-10.2) mg/dL Albumin 2.0 L (3.8-4.8) g/dL Pituitary panel 01/22/22 Range/Units 06:10 Sodium 144 (137-145) mmol/L Potassium 3.8 (3.6-5.0) mmol/L Chloride 112.7 H (98-107) mmol/L Carbon Dioxide 23 (22-30) mmol/L BUN 82 H (9-20) mg/dL Creatinine 1.9 H (0.8-1.3) mg/dL Glucose 256 H (75-100) mg/dL Calcium 8.0 L (8.4-10.2) mg/dL Adrenal panel 01/15/22 01/22/22 Range/Units 08:41 06:10 Sodium 144 (137-145) mmol/L Potassium 3.8 (3.6-5.0) mmol/L Chloride 112.7 H (98-107) mmol/L Carbon Dioxide 23 (22-30) mmol/L BUN 82 H (9-20) mg/dL Creatinine 1.9 H (0.8-1.3) mg/dL Glucose 256 H (75-100) mg/dL Calcium 8.0 L (8.4-10.2) mg/dL Albumin 2.0 L (3.8-4.8) g/dL
--- NOTE | 2022-01-22 11:33 | Progress Note ---
Assessment and Plan Cultures: MRSA nasal PCR: Positive 01/11/2022 blood culture: No growth 01/11/2022 urine culture: Enterobacter, Enterococcus (VRE - faecium) 01/14/2022 decubitus OR culture: Proteus mirabilis 01/15/2022 C. difficile PCR: Negative A/P: 66-year-old male with hypertension, CHF, diabetes, prior CVA, status post PEG tube, indwelling Vallecillo catheter, [facility] resident: #Severe sepsis: Multifactorial, likely secondary to UTI, infected sacral decubitus ulcer. UA showed significant pyuria. Blood cultures with no growth. #COVID-19: initial CXR without pneumonia. Weaned off oxygen. WBC 14.0, D-dimer 1089, CRP 15.8, procalcitonin 0.57, ferritin 693, LDH 336. C. difficile PCR: Negative #UTI: indwelling Vallecillo. UA with pyuria, culture with Enterobacter, Enterococcus #Necrotic sacral decubitus ulcer with eschar. Underwent debridement by Dr. Small on 01/14/2022. CT without any evidence of osteomyelitis. #Acute renal failure: renally adjust abx. Nephrology following, on HD. #Prior CVA, bedbound status with indwelling Vallecillo catheter, PEG tube #Acute encephalopathy: Admitted with severe hypernatremia. #Acute thrombocytopenia: monitor. #Protein calorie malnutrition Recs: -continue renally dosed IV cefepime, IV daptomycin due to VRE. Avoiding linezolid due to thrombocytopenia. -Due to renal function, not a candidate for Remdesivir. -Patient on room air, CRP down to 3.1. -continue wound care and offloading. Surgery following, possible additional debridement tomorrow -Guarded prognosis Tara Ramos MD, FACP, [facility] ([facility] O: [phone] F: [phone] C: [phone] Subjective Date of service: 01/22/22 Principal diagnosis: MAURI Interval history: No fever. Remains on room air. CRP down to 3.1. Objective - Exam Narrative Exam: Physical Exam: deferred due to COVID-19 positivity, reduce risk of transmission - Constitutional Vitals: Vital Signs Temp Pulse Resp BP Pulse Ox 98.5 F 61 18 114/51 97 01/22/22 05:08 01/22/22 05:08 01/22/22 05:08 01/22/22 05:08 01/22/22 10:00 Temperature -Last 24 Hours Temperature 98.5 F Temperature 97.8 F Temperature 98.1 F - Labs CBC & Chem 7: 01/20/22 04:39 01/22/22 06:10 Labs: Abnormal lab results 01/15/22 01/15/22 01/20/22 Range/Units 08:41 08:41 17:30 Chloride (98-107) mmol/L BUN (9-20) mg/dL Creatinine (0.8-1.3) mg/dL Glucose (75-100) mg/dL POC Glucose (70-105) mg/dL Calcium (8.4-10.2) mg/dL C-Reactive Protein (0.00-1.30) mg/dL Serum Total Protein 5.4 L (6.1-8.1) g/dL Albumin 2.0 L (3.8-4.8) g/dL Patez-7-Cyyrpuwpb 0.5 H (0.2-0.3) g/dL Beta Globulins 0.6 H (0.2-0.5) g/dL PEP Interpretation see below H Urine Creatinine 61.8 H (0.1-20.0) mg/dL Complement C3 203 H (82-185) mg/dL 01/21/22 01/21/22 01/22/22 Range/Units 16:31 23:28 05:26 Chloride (98-107) mmol/L BUN (9-20) mg/dL Creatinine (0.8-1.3) mg/dL Glucose (75-100) mg/dL POC Glucose 199 H 211 H 228 H (70-105) mg/dL Calcium (8.4-10.2) mg/dL C-Reactive Protein (0.00-1.30) mg/dL Serum Total Protein (6.1-8.1) g/dL Albumin (3.8-4.8) g/dL Imiix-2-Tbijatydi (0.2-0.3) g/dL Beta Globulins (0.2-0.5) g/dL PEP Interpretation Urine Creatinine (0.1-20.0) mg/dL Complement C3 (82-185) mg/dL 01/22/22 01/22/22 Range/Units 06:10 10:56 Chloride 112.7 H (98-107) mmol/L BUN 82 H (9-20) mg/dL Creatinine 1.9 H (0.8-1.3) mg/dL Glucose 256 H (75-100) mg/dL POC Glucose 211 H (70-105) mg/dL Calcium 8.0 L (8.4-10.2) mg/dL C-Reactive Protein 3.10 H (0.00-1.30) mg/dL Serum Total Protein (6.1-8.1) g/dL Albumin (3.8-4.8) g/dL Kllaj-7-Ppoycbrhy (0.2-0.3) g/dL Beta Globulins (0.2-0.5) g/dL PEP Interpretation Urine Creatinine (0.1-20.0) mg/dL Complement C3 (82-185) mg/dL
[2022-01-22] MEDS: CEFEPIME/NS 1 GM/100 ML 1 GM/100 ML BAG IV SCH (17:37)
[2022-01-22] MEDS: INSULIN GLARGINE 100 UNITS/ML SUB-Q SCH (23:32)
[2022-01-23] MEDS: FREE WATER PO SCH ×3 (02:21→23:18)
[2022-01-23] MEDS: INSULIN LISPRO 100 UNIT/ML SUB-Q SCH ×4 (06:50→23:54)
[2022-01-23] MEDS: MIDODRINE 10 MG TAB PO SCH ×3 (07:13→17:22)
[2022-01-23 07:54] LABS: Hematocrit 30.7 % (35.5-45.6); Hemoglobin 9.7 gm/dl (11.8-15.2); Mean Corpuscular HGB Conc 32 % (32-34); Mean Corpuscular Volume 86 fl (84-94); Red Blood Count 3.58 M/mm3 (3.65-5.03)
[2022-01-23 07:55] LABS: Platelet Count 76 K/mm3 (140-440); Red Cell Distribution Width 23.2 % (13.2-15.2)
--- NOTE | 2022-01-23 09:14 | Progress Note ---
Assessment and Plan Acute metabolic encephalopathy MAURI (acute kidney injury) Hypertension Congestive heart failure Diabetes Hypernatremia SIRS (systemic inflammatory response syndrome COVID-positive Plan: BMP is pending, good UOP will request to remove vascath, discussed with RN, to be done todat Renally dose medications Strict I&O's daily Obtain daily weights Assess dialysis needs daily Subjective Date of service: 01/23/22 Principal diagnosis: MAURI Interval history: remains on isolation for COVID-19 Objective - Vital Signs Vital signs: Vital Signs - 12hr 01/22/22 01/22/22 01/22/22 22:00 22:55 22:58 Temperature 97.6 F Pulse Rate 69 68 Respiratory 18 Rate Blood Pressure 128/60 Blood Pressure 128/60 [Left] O2 Sat by Pulse 96 96 Oximetry 01/23/22 01/23/22 01/23/22 00:00 06:30 08:55 Temperature 98.0 F 98.1 F Pulse Rate 72 70 70 Respiratory 19 21 Rate Blood Pressure 125/62 Blood Pressure 129/58 [Left] O2 Sat by Pulse 97 100 Oximetry - Lab 01/23/22 07:46 01/22/22 06:10 Most recent lab results Calcium 8.0 mg/dL (8.4-10.2) L 01/22/22 06:10 Phosphorus 3.60 mg/dL (2.5-4.5) 01/17/22 07:06 Magnesium 2.40 mg/dL (1.7-2.3) H 01/18/22 12:52 Urine Creatinine 61.8 mg/dL (0.1-20.0) H 01/20/22 17:30 Urine Sodium 58 mmol/L 01/12/22 11:44 Medications & Allergies - Medications Allergies/Adverse Reactions: Allergies heparin Allergy (Verified 01/19/22 10:43) Unknown Home Medications: Home Medications Medication Instructions Recorded Confirmed Last Taken Type cephALEXin [Keflex] 500 mg PO Q6HR 7 Days #28 capsule 12/09/21 01/14/22 Unknown Rx Aspirin [[place] Aspirin EC] 81 mg PO QDAY 12/14/21 01/14/22 Unknown History Atorvastatin [Lipitor] 80 mg PO QHS 12/14/21 01/14/22 Unknown History Dapagliflozin Propanediol [Farxiga] 10 mg PO QDAY 12/14/21 01/14/22 Unknown History Insulin Detemir [Levemir VIAL] 25 unit SQ QHS 12/14/21 01/14/22 Unknown History Insulin Lispro [Admelog] 100 unit SQ ACHS 12/14/21 01/14/22 Unknown History Tamsulosin [Flomax] 0.4 mg PO QDAY 12/14/21 01/14/22 Unknown History carvediloL [Coreg] 3.125 mg PO BID 12/14/21 01/14/22 Unknown History Clopidogrel [Plavix] 75 mg PO QDAY tablet 12/27/21 01/14/22 Unknown Rx Sertraline [Zoloft] 100 mg PO QDAY #30 12/27/21 01/14/22 Unknown Rx Simple Syrup 15 ml FEEDTUBE PRN PRN oral.liqd 12/27/21 01/14/22 Unknown Rx Simple Syrup 30 ml FEEDTUBE PRN PRN oral.liqd 12/27/21 01/14/22 Unknown Rx Sodium Bicarbonate 325 mg FEEDTUBE PRN PRN #30 tablet 12/27/21 01/14/22 Unknown Rx Torsemide [Demadex] 20 mg PO QDAY #30 12/27/21 01/14/22 Unknown Rx Active Medications: Generic Name Dose Route Start Last Admin Trade Name Freq PRN Reason Stop Dose Admin Acetaminophen 650 mg 01/11/22 05:40 01/19/22 23:03 Acetaminophen 325 Mg Tab PO 650 mg Q4H PRN Administration Pain MILD(1-3)/Fever >100.5/ROGERS Albuterol 2.5 mg 01/11/22 05:40 Albuterol 2.5 Mg/3 Ml Nebu IH Q3HRT PRN Shortness Of Breath Lipase/Protease/Amylase 1 each 01/17/22 16:03 Lipase 10,500/Protease 25,000/Amylase 43,750 (Units) Dr Mariee FEEDTUBE PRN PRN For Clogged Feeding Tube Ascorbic Acid 1,000 mg 01/19/22 22:00 01/22/22 22:50 Ascorbic Acid 500 Mg Tab PO 1,000 mg BID ALEXSANDRA Administration Aspirin 81 mg 01/13/22 11:00 01/22/22 10:12 Aspirin 81 Mg Tab Chew FEEDTUBE 81 mg QDAY ALEXSANDRA Administration Atorvastatin Calcium 80 mg 01/11/22 22:00 01/22/22 22:50 Atorvastatin 40 Mg Tab PO 80 mg QHS ALEXSANDRA Administration Cholecalciferol 5,000 unit 01/20/22 10:00 01/22/22 10:16 Cholecalciferol (Vit D3) 5,000 Unit Tab PO 5,000 unit DAILY ALEXSANDRA Administration Clopidogrel Bisulfate 75 mg 01/11/22 10:00 01/22/22 10:14 Clopidogrel 75 Mg Tab PO 75 mg QDAY ALEXSANDRA Administration Dextrose 50 ml 01/11/22 05:40 Dextrose 50% In Water (25gm) 50 Ml Syringe IV Q30MIN PRN Hypoglycemia Protocol Famotidine 10 mg 01/13/22 11:00 01/22/22 22:51 Famotidine 10 Mg Tab FEEDTUBE 10 mg BID ALEXSANDAR Administration Hydralazine HCl 10 mg 01/11/22 05:54 Hydralazine 20 Mg/1 Ml Inj IV Q6H PRN Blood Pressure Cefepime HCl 1 gm in 100 mls @ 200 mls/hr 01/13/22 18:00 01/22/22 17:37 Cefepime/Ns 1 Gm/100 Ml IV 200 mls/hr QPM ALEXSANDRA Administration Protocol Sodium Chloride 100 mls @ 999 mls/hr 01/13/22 18:00 Nacl 0.9% IV ASHLEY PRN Hypotension Daptomycin 300 mg/ Sodium 100 mls @ 200 mls/hr 01/19/22 12:00 01/21/22 12:07 Chloride IV 200 mls/hr Q48H ALEXSANDRA Administration Protocol Sodium Chloride 1,000 mls @ 125 mls/hr 01/20/22 15:00 01/22/22 05:00 Nacl 0.45% 1000 Ml IV 125 mls/hr DIRECT ALEXSANDRA Administration Insulin Glargine 15 units 01/18/22 22:00 01/22/22 23:32 Insulin Glargine 100 Units/Ml SUB-Q 15 units HS ALEXSANDRA Administration Insulin Human Lispro 0 unit 01/11/22 06:00 01/23/22 06:50 Insulin Lispro 100 Unit/Ml SUB-Q Not Given Q6HR ALEXSANDRA Protocol Midodrine 10 mg 01/12/22 09:03 01/22/22 17:37 Midodrine 10 Mg Tab PO 10 mg TID@0800,1200,1600 ALEXSANDRA Administration Ondansetron HCl 4 mg 01/11/22 05:40 Ondansetron 4 Mg/2 Ml Inj IV Q8H PRN Nausea And Vomiting Potassium Chloride 30 meq 01/18/22 10:00 01/22/22 10:00 Potassium Chloride Er 10 Meq Tab PO 30 meq QDAY ALEXSANDRA Administration Prazosin HCl 5 mg 01/15/22 22:00 01/22/22 22:58 Prazosin 5 Mg Cap PO Not Given Q12HR ALEXSANDRA Simple Syrup 15 ml 01/17/22 16:03 Simple Syrup 15 Ml FEEDTUBE PRN PRN Hypoglycemia Simple Syrup 30 ml 01/17/22 16:03 Simple Syrup 15 Ml FEEDTUBE PRN PRN Hypoglycemia Sodium Bicarbonate 325 mg 01/17/22 16:03 Sodium Bicarbonate 325 Mg Tab FEEDTUBE PRN PRN For Clogged Feeding Tube Sodium Chloride 10 ml 01/11/22 10:00 01/22/22 22:56 Sodium Chloride 0.9% 10 Ml Flush Syringe IV 10 ml BID ALEXSANDRA Administration Sodium Chloride 10 ml 01/11/22 05:40 Sodium Chloride 0.9% 10 Ml Flush Syringe IV PRN PRN LINE FLUSH Sodium Hypochlorite 1 applic 01/14/22 10:00 01/22/22 22:49 Sodium Hypochlorite, Dakin's 1/2 Strength (0.25%) 473 Ml Topical Soln TP 1 applicatio BID ALEXSANDRA Administration Zinc Sulfate 220 mg 01/19/22 22:00 01/22/22 22:51 Zinc Sulfate 220 Mg Cap PO 220 mg BID ALEXSANDRA Administration
[2022-01-23] MEDS ORDERED: LIDOCAINE MPF (2%) 20 MG/1 ML VIAL 5 ML ONE (09:58)
[2022-01-23] MEDS ORDERED: fentaNYL 100 MCG/2 ML INJ ONE (09:59)
[2022-01-23] MEDS ORDERED: propofoL 200 MG/20 ML VIAL IV ONE ×2 (09:59→11:59)
--- NOTE | 2022-01-23 10:12 | Event Note ---
Date: 01/23/22 Off the floor for procedure: debridement. Continue current antibiotics: Cefepime, daptomycin.
[2022-01-23] MEDS: ASPIRIN 81 MG TAB CHEW FEEDTUBE SCH (10:13)
--- NOTE | 2022-01-23 10:15 | Anesthesia Day of Surgery ---
Anesthesia Day of Surgery - Day of Surgery Patient Examined: Yes Patient H&P Reviewed: Yes Patient is NPO: Yes
[2022-01-23] MEDS: PRAZOSIN 5 MG CAP PO SCH ×2 (10:16→23:17)
[2022-01-23] MEDS: ASCORBIC ACID 500 MG TAB PO SCH ×2 (10:16→23:17)
[2022-01-23] MEDS: CLOPIDOGREL 75 MG TAB PO SCH (10:16)
[2022-01-23] MEDS: ZINC SULFATE 220 MG CAP PO SCH ×2 (10:17→23:18)
[2022-01-23] MEDS: CHOLECALCIFEROL (VIT D3) 5,000 UNIT TAB PO SCH (10:17)
--- NOTE | 2022-01-23 10:17 | Anesthesia Consultation ---
Anesthesia Consult and Med Hx Date of service: 01/23/22 - Airway Anesthetic Teeth Evaluation: Good (Mostly missing) ROM Head & Neck: Adequate Mental/Hyoid Distance: Adequate Mallampati Class: Class II Intubation Access Assessment: Probably Good - Pre-Operative Health Status ASA Pre-Surgery Classification: ASA3 Proposed Anesthetic Plan: MAC (GA if needed) - Pulmonary Hx Smoking: No - Cardiovascular System Hx Hypertension: Yes (CHF) - Central Nervous System CVA: Yes Hx Psychiatric Problems: No - Gastrointestinal Hx Gastroesophageal Reflux Disease: No (Dysphagia with PEG) - Endocrine Hx Renal Disease: Yes (MAURI) Hx Non-Insulin Dependent Diabetes: Yes - Additional Comments Anesthesia Medical History Comments: Sepsis. Thrombocytopenia-76
[2022-01-23] MEDS: SODIUM HYPOCHLORITE, DAKIN'S 1/2 STRENGTH (0.25%) 473 ML TOPICAL SOLN TP SCH ×2 (11:14→23:17)
[2022-01-23] MEDS: POTASSIUM CHLORIDE ER 10 MEQ TAB PO SCH (11:14)
[2022-01-23] MEDS: FAMOTIDINE 10 MG TAB FEEDTUBE SCH (11:15)
[2022-01-23] MEDS ORDERED: ePHEDrine SULFATE 50 MG/1 ML INJ ONE (11:46)
[2022-01-23] MEDS ORDERED: SODIUM CHLORIDE 0.9% IRR 1,500 ML BOTTLE IR ONE (12:00)
[2022-01-23] MEDS ORDERED: PHENYLEPHRINE/NS 1,000 MCG/10 ML SYRINGE (OR USE) IV ONE (12:25)
[2022-01-23] MEDS ORDERED: LIDOCAINE (1%) 10 MG/1 ML VIAL 20 ML MDV ONE (12:32)
--- NOTE | 2022-01-23 12:53 | Operative Report ---
Operative Report Operative Report: Patient Name: YENNI MASON Date: 01/23/22 Pre-op diagnosis: 1. Unstageable infected sacral decubitus ulcer, 2. Unstageable left heel and lower leg wound Post-op diagnosis: same Findings: 1. Necrotic, infected sacral decubitus extending to bone. Measurement: 14cm x 12cm x 1cm 2. L heel wound with overlying eschar. Measurement: 3.5cm x 5.3cm x0.2cm 3. L lower leg wound with overlying eschar. Measurement: 11.4cm x 3cm x 0.3cm Procedure: 1. Excisional debridement of sacral decubitus ulcer 2. Excisional debridement of left lower extremity wounds Anesthesia: MAC, local Surgeon: Konstantin Corral DO Estimated blood loss: 100cc Pathology: none Specimen disposition: n/a Condition: stable Disposition: PACU HPI and indication: 66-year-old male who presented to the hospital from longterm with altered mental status. He was found to have a large sacral decubitus wound along with other pressure ulcers including his left lower extremity. The sacral wound appeared to be infected and was debrided once at the bedside. Upon reexamination the wound continue to show signs of deep tissue necrosis and therefore it was recommended that the patient undergo debridement in the operating room. Also noted was a necrotic wound of the patient's left lower extremity and heel. Debridement of this was recommended as well. This was discussed with the patient and consent obtained by Dr. Small. Procedure in detail: The patient was identified in the preoperative area, taken back to the operating room. Once anesthesia was induced the patient was placed in left lateral decubitus position in the hospital bed and all bony prominences padded appropriately. The sacral area was exposed and revealed a large unstageable, infected sacral decubitus ulcer with evidence of stool soilage. The left lower lateral leg as well as the heel also revealed unstageable wounds. Both sites were prepped with Betadine and draped in sterile fashion. The patient was insensate in the sacral area. An excisional debridement of the necrotic skin, subcutaneous tissue, fascia to the level of the bone was performed using a 10 blade, and electrocautery. Hemostasis was achieved along the way. However as the patient was on Plavix, there was generalized oozing from the wound bed. Once all visible necrotic tissue was excised the wound was irrigated and hemostasis very meticulously achieved. Surgicel powder was sprayed directly on the wound bed and 2 pieces of quick clot were packed into the wound to further ensure hemostasis. Pressure was held for 5 minutes. No obvious active bleeding was identified. The quick clot was left in place and the wound was packed with a saline moistened gauze. This was covered with 4 x 4 gauze, ABD pads, Medipore tape. The wound measured 14 cm x 12 cm x 1 cm. I then turned my attention to the left lower extremity. This was draped in sterile fashion. Local anesthetic was infiltrated into the skin around the wounds. Excisional debridement of both wounds was performed using a 10 blade. Necrotic skin and subcutaneous tissue was debrided. The left heel wound measured 3.5 x 5.3 x 0.2 cm. The left lower leg wound measured 11.4 cm x 3 cm x 0.3 cm. The wounds were irrigated and hemostasis achieved using electrocautery. The wounds were packed with saline moistened gauze. This was covered with dry 4 x 4 gauze, ABD pads, and wrapped with Kerlix gauze. At the end of the case all sponge, instrument, sharp counts were correct x2. The patient was awoken from anesthesia and returned to supine position. He was taken to the PACU in stable condition.
[2022-01-23 18:28] LABS: Anisocytosis 1+; Basophils % (Manual) 0 % (0.0-1.8); Hypochromasia 1+; Platelet Estimate Consistent w Auto; Total Cells Counted 100
--- NOTE | 2022-01-23 18:50 | Progress Note ---
Assessment and Plan Assessment and plan: This is a 66-year-old male with known past medical history of hypertension, CVA, CHF, DM, dysphagia s/p PEGtube placement admitted for sepsis and MAURI Hospital Course to Date: 01/12: Patient remains encephalopathic but more awake, following simple commands. Still hypotensive this am, probable sepsis. Febrile overnight with worsening leukocytosis this am. Cultures are pending. Continue IVF hydration and empiric IV abx. Multiple wounds, including unstageable sacral decub and MRSA PCR positive. IV Vanco was also initiated, renal dose per pharmacy. ID consulted. Midodrine also added TID. General surgery and wound care was also consulted for wounds eval and treatment. Worsening renal function with hypernatremia and hyperkalemia also noted, continue IVF hydration per nephro. Worsening thrombocytopenia also noted, no s/s of any active bleeding. H&H stable. Hold AC for now, HIT panel ordered. Lantus qhs added for hyperglycemia, continue BG and SSI Q6hrs 01/13: Patient tolerating tube feeds via PEG, unsure why the patient who had a PEG got so dehydrated at the facility, it appears he was tolerating some PO and as a result PEG was not in use at the facility. He is for debridement tomorrow, will continue free water flushes-150CC Q6 Considering he is on HD, will reassess and stop tomorrow if improved, Keep NPO after Midnight Continue abx therapy, Mental status improving some Discharge planning when stable 01/14/ Na level improving, Cr stable after HD x2, cont iv fluid, follow renal recommendation, pending surgical eval for decubitus ulcer 01/15: Plan to hold hemodialysis today, creatinine IVF/stable. Status post bedside debridement of the decubitus ulcer by general surgery. Patient need deep debridement which is planned for tomorrow. N.p.o. after midnight. C ontinue to follow BMP 01/16: Positive for COVID-19, moved to COVID floor. We will continue to follow inflammatory markers. cancelled deep debridement at the protocols today. We will continue to follow. Not a candidate for remdesivir due to renal failure, oxygen requirement has not changed, will hold dexamethasone. Continue to follow 01/17: BP remains very soft today, will initiate IV fluid, continue to monitor clinically. Monitor renal function and inflammatory markers. add long acting insulin for hyperglycemia 01/18: K 2.8 today, cont to replete, ordered CT head worsening encephalopathy, cont restrain. Patient remians confused, follow inflammatory markers. follow BMP 01/19: patient on RA, remains confused. Na 150 today, changed iv fluid to D5w and increased free water with TF. follow inflammatory markers. D-dimer >1000, will change heparin to eliquis 2.[address] head w/o any changes 01/21/22; severe sepsis currently patient is on cefepime and daptomycin per ID Sacral decubitus ulcer, surgery following, awaiting debridement 7 days after COVID is positive for OR protocols 01/22/22 possible decubitus ulcer debridement tomorrow per surgery Patient is n.p.o. status from midnight 01/23; patient is scheduled for surgical debridement of decubitus ulcers Assessment and Plan; --surgical debridement of decubitus ulcer By 7 #Acute Metabolic Encephalopathy - Multifactorial: probably due to azotemia vs hypernatremia, vs infectious process - on Continous IVF hydration and empiric IV abx - Mentation with mild improvement, following simple commands - CT head no changes - Frequent reorientation - Avoid sedatives agents - Maintenance of sleep-wake cycle #Hypotension 2/2 #Sepsis Vs hypovolemia #H/o Congestive Heart Failure(CHF) - Presented with tachycardia and hypotension - Patient remains hypotension this am, was febrile overnight and worsen leukocytosis this am - [facility] EF 45-50%, patient appear hypovolemic and dry - Continue IVF hydration per Nephro - Hold home antihypertensive agents - Midodrine added - cont. IVF, increased free water with TF for hypernatremia - Continue blood pressure monitor per protocol - Maintain MAP above 65 - Strict intake and output and daily weight #Acute Kidney Injury(MAURI) most likely ATN, placed on HD #Hypernatremia #Hyperkalemia, resolved # hypokalemia - probably due to hypotension/hypovelemia - Per record Scr. was 1.2 from last admit on 12/2021 - Scr. as high as 5.9, BUN 111 - s/p X1 dose of kayexalate, FWF for hypernatremia - Nephrology on consult, appreciated recommendation - no hydronephrosis on renal US - Strict intake and output - Avoid nephrotoxic medications; Renally dose medications - Vallecillo in place, initiated on HD 01/14 - replete electrolytes as needed #Severe Sepsis- multifactorial #Acute cystitis/UTI/VRE UTI # Positive Covid 19 #Infected Sacral Decubitis Ulcer/Proteus mirabilis #Leukocytosis #Lactic Acidosis - Presented with tachycardia and hypotension - Patient remains hypotension this am, was febrile overnight and worsen leukocytosis this am - Cultures pending, MRSA PCR positive - With multiple wounds, including malodourous, unstageable sacral decubitis. -Patient is on cefepime and daptomycin per ID - General Surgery consulted for possible debridement, wound care eval and treat - Wound care also consulted #Dysphagia s/p PEGtube Placement - Nutrition consulted - Initiated enteral nutrition #Thrombocytopenia - Presented with low plt - Plt count worsen this am - no s/s of any active bleeding - Will hold AC- heparin SubQ for now - H&H stable - HIT panel ordered #Type 2 Diabetes with Hyperglycemia - Continue BG and SSI Q6hrs - Lantus added qHs - While critically ill target blood glucose of 140-180 #GI/DVT Prophylaxis - PPI- Pepcid - SCDs to bilateral lower extremities while in bed Consults and recommendations noted and appreciated Closely monitor the patient and adjust management as needed Plan of care reviewed with patient and his nurse DC planning per case management/SNF placement COVID-19 PCR positive Rapid PCR test negative C. difficile negative Home O2 evaluation prior to discharge History Interval history: I have seen and examined the patient at the bedside Patient's chart and medications reviewed Patient is scheduled for sacral decubitus ulcer the surgical debridement N.p.o. status Signs noted Hospitalist Physical - Constitutional Vitals: Temp Pulse Resp BP Pulse Ox 97.6 F 84 15 102/59 96 01/23/22 14:10 01/23/22 14:10 01/23/22 14:10 01/23/22 14:10 01/23/22 14:10 General appearance: Present: no acute distress, cachectic, other (Noncommunicative) - EENT Eyes: Present: PERRL, EOM intact - Neck Neck: Present: supple, normal ROM - Respiratory Respiratory effort: normal Respiratory: bilateral: diminished, negative: rales, rhonchi, wheezing - Cardiovascular Rhythm: regular Heart Sounds: Present: S1 & S2 - Extremities Extremities: no ischemia Extremity abnormal: edema - Abdominal General gastrointestinal: soft, non-tender, non-distended, normal bowel sounds, other (PEG tube in place) - Integumentary Integumentary: Present: clear, warm - Psychiatric Psychiatric: appropriate mood/affect, cooperative - Neurologic Neurologic: moves all extremities Results - Labs CBC & Chem 7: 01/23/22 07:46 01/22/22 06:10 Labs: Laboratory Last Values WBC 13.6 K/mm3 (4.5-11.0) H 01/23/22 07:46 RBC 3.58 M/mm3 (3.65-5.03) L 01/23/22 07:46 Hgb 9.7 gm/dl (11.8-15.2) L 01/23/22 07:46 Hct 30.7 % (35.5-45.6) L 01/23/22 07:46 MCV 86 fl (84-94) 01/23/22 07:46 MCH 27 pg (28-32) L 01/23/22 07:46 MCHC 32 % (32-34) 01/23/22 07:46 RDW 23.2 % (13.2-15.2) H 01/23/22 07:46 Plt Count 76 K/mm3 (140-440) L 01/23/22 07:46 [place] % (Auto) 4.2 % (0.0-7.3) 01/17/22 07:06 Eos % (Auto) 1.0 % (0.0-4.3) 01/17/22 07:06 [place] # (Auto) 0.5 K/mm3 (0.0-0.8) 01/17/22 07:06 Eos # (Auto) 0.1 K/mm3 (0.0-0.4) 01/17/22 07:06 Baso # (Auto) 0.1 K/mm3 (0.0-0.1) 01/17/22 07:06 Add Manual Diff Complete 01/23/22 07:46 Total Counted 100 01/23/22 07:46 Seg Neutrophils % Pantry Steward/Stewardess 01/17/22 07:06 Seg Neuts % (Manual) 92.0 % (40.0-70.0) H 01/23/22 07:46 Band Neutrophils % 0 % 01/23/22 07:46 Lymphocytes % (Manual) 4.0 % (13.4-35.0) L 01/23/22 07:46 Reactive Lymphs % (Man) 0 % 01/23/22 07:46 Monocytes % (Manual) 2.0 % (0.0-7.3) 01/23/22 07:46 Eosinophils % (Manual) 1.0 % (0.0-4.3) 01/23/22 07:46 Basophils % (Manual) 0 % (0.0-1.8) 01/23/22 07:46 Metamyelocytes % 1.0 % 01/23/22 07:46 Myelocytes % 0 % 01/23/22 07:46 Promyelocytes % 0 % 01/23/22 07:46 Blast Cells % 0 % 01/23/22 07:46 Nucleated RBC % Not Reportable 01/23/22 07:46 Seg Neutrophils # 11.3 K/mm3 (1.8-7.7) H 01/17/22 07:06 Seg Neutrophils # Man 12.5 K/mm3 (1.8-7.7) H 01/23/22 07:46 Band Neutrophils # 0.0 K/mm3 01/23/22 07:46 Lymphocytes # (Manual) 0.5 K/mm3 (1.2-5.4) L 01/23/22 07:46 Abs React Lymphs (Man) 0.0 K/mm3 01/23/22 07:46 Monocytes # (Manual) 0.3 K/mm3 (0.0-0.8) 01/23/22 07:46 Eosinophils # (Manual) 0.1 K/mm3 (0.0-0.4) 01/23/22 07:46 Basophils # (Manual) 0.0 K/mm3 (0.0-0.1) 01/23/22 07:46 Metamyelocytes # 0.1 K/mm3 01/23/22 07:46 Myelocytes # 0.0 K/mm3 01/23/22 07:46 Promyelocytes # 0.0 K/mm3 01/23/22 07:46 Blast Cells # 0.0 K/mm3 01/23/22 07:46 WBC Morphology Not Reportable 01/23/22 07:46 Hypersegmented Neuts Not Reportable 01/23/22 07:46 Hyposegmented Neuts Not Reportable 01/23/22 07:46 Hypogranular Neuts Not Reportable 01/23/22 07:46 Smudge Cells Not Reportable 01/23/22 07:46 Toxic Granulation Not Reportable 01/23/22 07:46 Toxic Vacuolation Not Reportable 01/23/22 07:46 Dohle Bodies Not Reportable 01/23/22 07:46 Pelger-Huet Anomaly Not Reportable 01/23/22 07:46 Sarah Rods Not Reportable 01/23/22 07:46 Platelet Estimate Consistent w auto 01/23/22 07:46 Clumped Platelets Not Reportable 01/23/22 07:46 Plt Clumps, EDTA Not Reportable 01/23/22 07:46 Large Platelets Not Reportable 01/23/22 07:46 Giant Platelets Not Reportable 01/23/22 07:46 Platelet Satelliting Not Reportable 01/23/22 07:46 Plt Morphology Comment Not Reportable 01/23/22 07:46 RBC Morphology Not Reportable 01/23/22 07:46 Dimorphic RBCs Not Reportable 01/23/22 07:46 Polychromasia Not Reportable 01/23/22 07:46 Hypochromasia 1+ 01/23/22 07:46 Poikilocytosis Not Reportable 01/23/22 07:46 Anisocytosis 1+ 01/23/22 07:46 Microcytosis Not Reportable 01/23/22 07:46 Macrocytosis Not Reportable 01/23/22 07:46 Spherocytes Not Reportable 01/23/22 07:46 Pappenheimer Bodies Not Reportable 01/23/22 07:46 Sickle Cells Not Reportable 01/23/22 07:46 Target Cells Not Reportable 01/23/22 07:46 Tear Drop Cells Not Reportable 01/23/22 07:46 Ovalocytes Not Reportable 01/23/22 07:46 Helmet Cells Not Reportable 01/23/22 07:46 [place] Bodies Not Reportable 01/23/22 07:46 [place] Rings Not Reportable 01/23/22 07:46 [place] Cells Not Reportable 01/23/22 07:46 Bite Cells Not Reportable 01/23/22 07:46 Crenated Cell Not Reportable 01/23/22 07:46 Elliptocytes Not Reportable 01/23/22 07:46 Acanthocytes (Spur) Not Reportable 01/23/22 07:46 Rouleaux Not Reportable 01/23/22 07:46 Hemoglobin C Crystals Not Reportable 01/23/22 07:46 Schistocytes Not Reportable 01/23/22 07:46 Malaria parasites Not Reportable 01/23/22 07:46 Jigar Bodies Not Reportable 01/23/22 07:46 Hem Pathologist Commnt No 01/23/22 07:46 D-Dimer 940.59 ng/mlDDU (0-234) H 01/20/22 04:39 Heparin Anti-Xa, Unfract Negative (Negative) 01/13/22 04:56 Sodium 144 mmol/L (137-145) 01/22/22 06:10 Potassium 3.8 mmol/L (3.6-5.0) 01/22/22 06:10 Chloride 112.7 mmol/L (98-107) H 01/22/22 06:10 Carbon Dioxide 23 mmol/L (22-30) 01/22/22 06:10 Anion Gap 12 mmol/L 01/22/22 06:10 BUN 82 mg/dL (9-20) H 01/22/22 06:10 Creatinine 1.9 mg/dL (0.8-1.3) H 01/22/22 06:10 Estimated GFR 36 ml/min 01/22/22 06:10 BUN/Creatinine Ratio 43 % 01/22/22 06:10 Glucose 256 mg/dL (75-100) H 01/22/22 06:10 POC Glucose 133 mg/dL (70-105) H 01/23/22 16:59 Lactic Acid 1.70 mmol/L (0.7-2.0) 01/13/22 04:56 Calcium 8.0 mg/dL (8.4-10.2) L 01/22/22 06:10 Phosphorus 3.60 mg/dL (2.5-4.5) 01/17/22 07:06 Magnesium 2.40 mg/dL (1.7-2.3) H 01/18/22 12:52 Ferritin 560.7 ng/mL (30.0-300.0) H 01/20/22 04:39 Total Bilirubin 0.60 mg/dL (0.1-1.2) 01/11/22 03:08 Direct Bilirubin 0.3 mg/dL (0-0.2) H 01/11/22 03:08 Indirect Bilirubin 0.3 mg/dL 01/11/22 03:08 AST 45 units/L (5-40) H 01/11/22 03:08 ALT 29 units/L (7-56) 01/11/22 03:08 Alkaline Phosphatase 180 units/L (35-129) H 01/11/22 03:08 Lactate Dehydrogenase 334 units/L (91-180) H 01/20/22 04:39 Total Creatine Kinase 15 units/L (55-170) L 01/20/22 04:39 C-Reactive Protein 3.10 mg/dL (0.00-1.30) H 01/22/22 06:10 Serum Total Protein 5.4 g/dL (6.1-8.1) L 01/15/22 08:41 Total Protein 7.3 g/dL (6.3-8.2) 01/11/22 03:08 Albumin 2.0 g/dL (3.8-4.8) L 01/15/22 08:41 Albumin/Globulin Ratio 0.5 % 01/11/22 03:08 Tphol-9-Nojdovknb 0.5 g/dL (0.2-0.3) H 01/15/22 08:41 Tlbjg-4-Fmzipvxml 0.9 g/dL (0.5-0.9) 01/15/22 08:41 Beta Globulins 0.6 g/dL (0.2-0.5) H 01/15/22 08:41 Gamma Globulins 1.2 g/dL (0.8-1.7) 01/15/22 08:41 Abnorm Protein Band 1 see below 01/15/22 08:41 PEP Interpretation see below H 01/15/22 08:41 Serotonin Release Assay See scanned result 01/13/22 04:56 Procalcitonin 0.74 ng/mL (<0.15) 01/20/22 04:39 Urine Color Claudia (Yellow) 01/12/22 11:44 Urine Turbidity Cloudy (Clear) 01/12/22 11:44 Urine pH 5.0 (5.0-7.0) 01/12/22 11:44 Ur Specific [place] 1.030 (1.003-1.030) 01/12/22 11:44 Urine Protein 30 mg/dl mg/dL (Negative) 01/12/22 11:44 Urine Glucose (UA) Negative mg/dL (Negative) 01/12/22 11:44 Urine Ketones Negative mg/dL (Negative) 01/12/22 11:44 Urine Blood Moderate (Negative) A 01/12/22 11:44 Urine Nitrite Negative (Negative) 01/12/22 11:44 Ur Reducing Substances Not Reportable 01/12/22 11:44 Urine Bilirubin Negative (Negative) 01/12/22 11:44 Urine Ictotest Not Reportable 01/12/22 11:44 Urine Urobilinogen 0.0 mg/dL (<2.0) 01/12/22 11:44 Ur Leukocyte Esterase Trace (Negative) 01/12/22 11:44 Urine WBC (Auto) > 182.0 /HPF (0.0-6.0) H 01/12/22 11:44 Urine RBC (Auto) 12.0 /HPF (0.0-6.0) 01/12/22 11:44 Urine Bacteria (Auto) 2+ /HPF (Negative) 01/12/22 11:44 Urine WBC Clumps 3+ /HPF 01/11/22 07:14 Urine Mucus Few /HPF 01/12/22 11:44 Urine Total Volume 1700 ml 01/20/22 17:30 Urine Creatinine 61.8 mg/dL (0.1-20.0) H 01/20/22 17:30 Height (in) 70.0 inches 01/20/22 17:30 Weight (lb) 124.7 lbs 01/20/22 17:30 Creatinine Clearance 28 01/20/22 17:30 Urine Sodium 58 mmol/L 01/12/22 11:44 Nasal Screen MRSA (PCR) Positive (Negative) 01/12/22 Unknown Random Vancomycin 10.3 ug/mL (0-40.0) 01/18/22 07:50 KAMILLA Screen Negative (Negative) 01/14/22 05:47 Proteinase 3 (PR3) Ab <1.0 AI (<1.0) 01/13/22 18:40 Myeloperoxidase Ab <1.0 AI (<1.0) 01/13/22 18:40 Heparin-induced Plt Ab Positive (Negative) H 01/13/22 04:56 UF Heparin High Dose 3 % Release 01/13/22 04:56 BRYCE UFH Low Dose 0.1 4 % Release 01/13/22 04:56 BRYCE UFH Low Dose 0.5 5 % Release 01/13/22 04:56 Complement C3 203 mg/dL (82-185) H 01/15/22 08:41 Complement C4 52 mg/dL (15-53) 01/15/22 08:41 C. difficile Tox (PCR) Negative (Negative) 01/15/22 11:32 Coronavirus (PCR) Positive (Negative) A 01/15/22 10:30 SARS-CoV-2 (PCR) Negative (Negative) 01/22/22 10:30 Hepatitis A IgM Ab Non-reactive (NonReactive) 01/13/22 18:40 Hep Bs Antigen Non-reactive (Negative) 01/13/22 18:40 Hep B Core IgM Ab Non-reactive (NonReactive) 01/13/22 18:40 Hepatitis C Antibody Non-reactive (NonReactive) 01/13/22 18:40 Miscellaneous Test Flexitest 1 H 01/13/22 18:40 [place]/IV: Voiding Method Indwelling Catheter Active Medications - Current Medications Current Medications: Generic Name Dose Route Start Last Admin Trade Name Freq PRN Reason Stop Dose Admin Acetaminophen 650 mg 01/11/22 05:40 01/19/22 23:03 Acetaminophen 325 Mg Tab PO 650 mg Q4H PRN Administration Pain MILD(1-3)/Fever >100.5/ROGERS Albuterol 2.5 mg 01/11/22 05:40 Albuterol 2.5 Mg/3 Ml Nebu IH Q3HRT PRN Shortness Of Breath Lipase/Protease/Amylase 1 each 01/17/22 16:03 Lipase 10,500/Protease 25,000/Amylase 43,750 (Units) Dr Mariee FEEDTUBE PRN PRN For Clogged Feeding Tube Ascorbic Acid 1,000 mg 01/19/22 22:00 01/22/22 22:50 Ascorbic Acid 500 Mg Tab PO 1,000 mg BID ALEXSANDRA Administration Aspirin 81 mg 01/13/22 11:00 01/22/22 10:12 Aspirin 81 Mg Tab Chew FEEDTUBE 81 mg QDAY ALEXSANDRA Administration Atorvastatin Calcium 80 mg 01/11/22 22:00 01/22/22 22:50 Atorvastatin 40 Mg Tab PO 80 mg QHS ALEXSANDRA Administration Cholecalciferol 5,000 unit 01/20/22 10:00 01/22/22 10:16 Cholecalciferol (Vit D3) 5,000 Unit Tab PO 5,000 unit DAILY ALEXSANDRA Administration Clopidogrel Bisulfate 75 mg 01/11/22 10:00 01/22/22 10:14 Clopidogrel 75 Mg Tab PO 75 mg QDAY ALEXSANDRA Administration Dextrose 50 ml 01/11/22 05:40 Dextrose 50% In Water (25gm) 50 Ml Syringe IV Q30MIN PRN Hypoglycemia Protocol Famotidine 10 mg 01/13/22 11:00 01/22/22 22:51 Famotidine 10 Mg Tab FEEDTUBE 10 mg BID ALEXSANDRA Administration Hydralazine HCl 10 mg 01/11/22 05:54 Hydralazine 20 Mg/1 Ml Inj IV Q6H PRN Blood Pressure Cefepime HCl 1 gm in 100 mls @ 200 mls/hr 01/13/22 18:00 01/22/22 17:37 Cefepime/Ns 1 Gm/100 Ml IV 200 mls/hr QPM ALEXSANDRA Administration Protocol Sodium Chloride 100 mls @ 999 mls/hr 01/13/22 18:00 Nacl 0.9% IV ASHLEY PRN Hypotension Daptomycin 300 mg/ Sodium 100 mls @ 200 mls/hr 01/19/22 12:00 01/21/22 12:07 Chloride IV 200 mls/hr Q48H ALEXSANDRA Administration Protocol Sodium Chloride 1,000 mls @ 125 mls/hr 01/20/22 15:00 01/22/22 05:00 Nacl 0.45% 1000 Ml IV 125 mls/hr DIRECT ALEXSANDRA Administration Insulin Glargine 15 units 01/18/22 22:00 01/22/22 23:32 Insulin Glargine 100 Units/Ml SUB-Q 15 units HS ALEXSANDRA Administration Insulin Human Lispro 0 unit 01/11/22 06:00 01/23/22 06:50 Insulin Lispro 100 Unit/Ml SUB-Q Not Given Q6HR ALEXSANDRA Protocol Midodrine 10 mg 01/12/22 09:03 01/22/22 17:37 Midodrine 10 Mg Tab PO 10 mg TID@0800,1200,1600 ALEXSANDRA Administration Ondansetron HCl 4 mg 01/11/22 05:40 Ondansetron 4 Mg/2 Ml Inj IV Q8H PRN Nausea And Vomiting Potassium Chloride 30 meq 01/18/22 10:00 01/22/22 10:00 Potassium Chloride Er 10 Meq Tab PO 30 meq QDAY ALEXSANDRA Administration Prazosin HCl 5 mg 01/15/22 22:00 01/22/22 22:58 Prazosin 5 Mg Cap PO Not Given Q12HR ALEXSANDRA Simple Syrup 15 ml 01/17/22 16:03 Simple Syrup 15 Ml FEEDTUBE PRN PRN Hypoglycemia Simple Syrup 30 ml 01/17/22 16:03 Simple Syrup 15 Ml FEEDTUBE PRN PRN Hypoglycemia Sodium Bicarbonate 325 mg 01/17/22 16:03 Sodium Bicarbonate 325 Mg Tab FEEDTUBE PRN PRN For Clogged Feeding Tube Sodium Chloride 10 ml 01/11/22 10:00 01/22/22 22:56 Sodium Chloride 0.9% 10 Ml Flush Syringe IV 10 ml BID ALEXSANDRA Administration Sodium Chloride 10 ml 01/11/22 05:40 Sodium Chloride 0.9% 10 Ml Flush Syringe IV PRN PRN LINE FLUSH Sodium Hypochlorite 1 applic 01/14/22 10:00 01/22/22 22:49 Sodium Hypochlorite, Dakin's 1/2 Strength (0.25%) 473 Ml Topical Soln TP 1 applicatio BID ALEXSANDRA Administration Zinc Sulfate 220 mg 01/19/22 22:00 01/22/22 22:51 Zinc Sulfate 220 Mg Cap PO 220 mg BID ALEXSANDRA Administration Nutrition/Malnutrition Assess - Dietary Evaluation Nutrition/Malnutrition Findings: Nutrition Notes Start: 01/12/22 13:45 Freq: Status: Active Protocol: Document 01/21/22 16:43 JARON (Rec: 01/21/22 17:02 JARON [id number]) Nutrition Notes Initial or Follow up Brief Note Current Diagnosis Acute Kidney Injury,CKD(stage I-IV),Decubitus(Pressure Ulcer ),Diabetes,Sepsis,Hypertension ,Stroke Other Pertinent Diagnosis CHF, Metabolic Encephalopathy, COVID-19, SIRS. Current Diet TF-Glucerna 1.2 Nicolas @ 75 ml/hr (since D 01/19). Height 5 ft 10 in Weight 56.69 kg [place] Body Weight (kg) 75.45 BMI 17.9 Weight change and time frame No body weight change reported in 10 days Weight Status Underweight Subjective/Other Information RD consult for routine F/U on TF tolerance/continuation. TF continues as prescribed, no reports on tolerance available at the time, will assess at F/U. Pt is on Room Air, O2 saturation @ 100%, according to Physical Assessment History notes. Percent of energy/protein needs met: Prescribed TF-Glucerna 1.2 Nicolas @ 75 ml/hr provides for energy/protein needs (2,160 Kcal/108 g) during LOS, 95% Kcal; 100% AA. #2 Nutrition Diagnosis Malnutrition Diagnosis Progress(for reassessment Continues documentation) #1 Nutrition Diagnosis Swallowing difficulty Diagnosis Progress(for reassessment Continues documentation) Is patient on ventilator? No Is Patient Ambulatory and/or Out of Bed No REE-([facility]-confined to bed) 1635.336 Kcal/Kg value to use for calculation 40 Approximate Energy Requirements Using 2268 kcal/Kg Calculation Used for Recommendations Kcal/kg Additional Notes Protein: 1.5-2 g/Kg IBW; 85- 113 g/day. Fluids: 1 ml/Kcal, or as per MD. Nutrition Intervention Nutrition Support: Continue TF-Glucerna 1.2 Nicolas @ 75 ml/hr. Flush: 120 ml water Q 4 hr, or as per MD. Kcal 2,160 Protein (gm) 108 Carbohydrates (gm) 206 Fat (gm) 108 Fluid (mL) 1,449 Fiber (gm) 29 % RDI: 95% Kcal; 100% AA. Goal #1 Provide at least 75% of energy /protein needs through Enteral Feeding during LOS. Follow-Up By: 01/28/22 Additional Comments Continue monitoring TF tolerance and BM.
--- NOTE | 2022-01-23 19:59 | Post Anesthesia Evaluation ---
- Post Anesthesia Evaluation Patient Participated: Yes Airway Patent: Yes Stable Respiratory Function: Yes Nausea/Vomiting: No Temp > 96.8F: Yes Pain Manageable: Yes Adequeate Hydration: Yes Anesthesia Complications: No Block Receding Appropriately: Not Applicable Patient on Ventilator: No
[2022-01-23 20:27] LABS: Calcium 8.1 mg/dL (8.4-10.2)
[2022-01-23] MEDS: CEFEPIME/NS 1 GM/100 ML 1 GM/100 ML BAG IV SCH (22:30)
[2022-01-23] MEDS: SODIUM CHLORIDE 0.45% 1000 ML 1,000 ML IV SCH (23:17)
[2022-01-23] MEDS: INSULIN GLARGINE 100 UNITS/ML SUB-Q SCH (23:55)
[2022-01-24] MEDS: FAMOTIDINE 10 MG TAB FEEDTUBE SCH ×3 (03:13→22:09)
[2022-01-24] MEDS: FREE WATER PO SCH ×6 (03:13→22:10)
[2022-01-24] MEDS: INSULIN LISPRO 100 UNIT/ML SUB-Q SCH ×3 (06:56→18:11)
--- NOTE | 2022-01-24 08:17 | Progress Note ---
Assessment and Plan Patient is 1 day status post debridement in the OR. There was apparently bleeding with the debridement that was difficult to control in the sacrum. We will hold Plavix at this time. For the next 5 days. Debridement of the ankle is also done on the right side. Prognosis for limb salvage is poor. We will obtain vascular evaluation for inflow. Patient will likely need an amputation. Subjective Date of service: 01/24/22 Patient Reports: Positive: no new complaints Narrative: Patient is 1 day status post debridement in the OR. There was apparently bleeding with the debridement that was difficult to control in the sacrum. We will hold Plavix at this time. For the next 5 days. Debridement of the ankle is also done on the right side. Prognosis for limb salvage is poor. We will obtain vascular evaluation for inflow. Patient will l ikely need an amputation. Objective Vital Signs - 12hr 01/23/22 01/23/22 01/24/22 23:02 23:05 00:00 Temperature 97.5 F L Pulse Rate 100 H 100 H Respiratory 18 Rate Blood Pressure 105/59 O2 Sat by Pulse 98 96 Oximetry 01/24/22 05:33 Temperature 98.5 F Pulse Rate 103 H Respiratory 18 Rate Blood Pressure 119/59 O2 Sat by Pulse 97 Oximetry - Labs 01/23/22 07:46 01/23/22 20:01 Diabetes panel 01/23/22 Range/Units 20:01 Sodium 142 (137-145) mmol/L Potassium 5.0 D (3.6-5.0) mmol/L Chloride 110.5 H (98-107) mmol/L Carbon Dioxide 20 L (22-30) mmol/L BUN 66 H (9-20) mg/dL Creatinine 1.6 H (0.8-1.3) mg/dL Glucose 153 H (75-100) mg/dL Calcium 8.1 L (8.4-10.2) mg/dL Calcium panel 01/23/22 Range/Units 20:01 Calcium 8.1 L (8.4-10.2) mg/dL Pituitary panel 01/23/22 Range/Units 20:01 Sodium 142 (137-145) mmol/L Potassium 5.0 D (3.6-5.0) mmol/L Chloride 110.5 H (98-107) mmol/L Carbon Dioxide 20 L (22-30) mmol/L BUN 66 H (9-20) mg/dL Creatinine 1.6 H (0.8-1.3) mg/dL Glucose 153 H (75-100) mg/dL Calcium 8.1 L (8.4-10.2) mg/dL Adrenal panel 01/23/22 Range/Units 20:01 Sodium 142 (137-145) mmol/L Potassium 5.0 D (3.6-5.0) mmol/L Chloride 110.5 H (98-107) mmol/L Carbon Dioxide 20 L (22-30) mmol/L BUN 66 H (9-20) mg/dL Creatinine 1.6 H (0.8-1.3) mg/dL Glucose 153 H (75-100) mg/dL Calcium 8.1 L (8.4-10.2) mg/dL
[2022-01-24] MEDS: POTASSIUM CHLORIDE ER 10 MEQ TAB PO SCH (09:16)
[2022-01-24] MEDS: ASPIRIN 81 MG TAB CHEW FEEDTUBE SCH (09:16)
[2022-01-24] MEDS: MIDODRINE 10 MG TAB PO SCH ×3 (09:16→17:33)
[2022-01-24] MEDS: ASCORBIC ACID 500 MG TAB PO SCH ×2 (09:16→22:08)
[2022-01-24] MEDS: CHOLECALCIFEROL (VIT D3) 5,000 UNIT TAB PO SCH (09:16)
[2022-01-24] MEDS: ZINC SULFATE 220 MG CAP PO SCH ×2 (09:16→22:09)
[2022-01-24] MEDS: PRAZOSIN 5 MG CAP PO SCH ×2 (09:16→22:14)
--- NOTE | 2022-01-24 09:37 | Progress Note ---
Assessment and Plan Assessment and plan: This is a 66-year-old male with known past medical history of hypertension, CVA, CHF, DM, dysphagia s/p PEGtube placement admitted for sepsis and MAURI Assessment and Plan; --surgical debridement of decubitus ulcer 01/23/2022 Patient tolerated the procedure well Surgery recommended to DC Plavix for 5 days Postop care, pain medications #Acute Metabolic Encephalopathy - Multifactorial: probably due to azotemia vs hypernatremia, vs infectious process - on Continous IVF hydration and empiric IV abx - Mentation with mild improvement, following simple commands - CT head no changes - Frequent reorientation - Avoid sedatives agents - Maintenance of sleep-wake cycle #Hypotension 2/ #Sepsis Vs hypovolemia #H/o Congestive Heart Failure(CHF) - Presented with tachycardia and hypotension - Patient remains hypotension this am, was febrile overnight and worsen leukocytosis this am - 12/14/21 Ech reviewed EF 45-50%, patient appear hypovolemic and dry - Continue IVF hydration per Nephro - Hold home antihypertensive agents - Midodrine added - cont. IVF, increased free water with TF for hypernatremia - Continue blood pressure monitor per protocol - Maintain MAP above 65 - Strict intake and output and daily weight #Acute Kidney Injury(MAURI) most likely ATN, placed on HD #Hypernatremia #Hyperkalemia, resolved # hypokalemia - probably due to hypotension/hypovelemia - Per record Scr. was 1.2 from last admit on 12/2021 - Scr. as high as 5.9, BUN 111 - s/p X1 dose of kayexalate, FWF for hypernatremia - Nephrology on consult, appreciated recommendation - no hydronephrosis on renal US - Strict intake and output - Avoid nephrotoxic medications; Renally dose medications - Vallecillo in place, initiated on HD 01/14 - replete electrolytes as needed #Severe Sepsis- multifactorial #Acute cystitis/UTI/VRE UTI # Positive Covid 19 #Infected Sacral Decubitis Ulcer/Proteus mirabilis #Leukocytosis #Lactic Acidosis - Presented with tachycardia and hypotension - Patient remains hypotension this am, was febrile overnight and worsen leukocytosis this am - Cultures pending, MRSA PCR positive - With multiple wounds, including malodourous, unstageable sacral decubitis. -Patient is on cefepime and daptomycin per ID - General Surgery consulted for possible debridement, wound care eval and treat - Wound care also consulted #Dysphagia s/p PEGtube Placement - Nutrition consulted - Initiated enteral nutrition #Thrombocytopenia - Presented with low plt - Plt count worsen this am - no s/s of any active bleeding - Will hold AC- heparin SubQ for now - H&H stable - HIT panel ordered #Type 2 Diabetes with Hyperglycemia - Continue BG and SSI Q6hrs - Lantus added qHs - While critically ill target blood glucose of 140-180 #GI/DVT Prophylaxis - PPI- Pepcid - SCDs to bilateral lower extremities while in bed Consults and recommendations noted and appreciated Closely monitor the patient and adjust management as needed Plan of care reviewed with patient and his nurse DC planning per case management/SNF placement COVID-19 PCR positive Rapid PCR test negative C. difficile negative Home O2 evaluation prior to discharge Hospital Course to Date: 01/12: Patient remains encephalopathic but more awake, following simple commands. Still hypotensive this am, probable sepsis. Febrile overnight with worsening leukocytosis this am. Cultures are pending. Continue IVF hydration and empiric IV abx. Multiple wounds, including unstageable sacral decub and MRSA PCR positive. IV Vanco was also initiated, renal dose per pharmacy. ID consulted. Midodrine also added TID. General surgery and wound care was also consulted for wounds eval and treatment. Worsening renal function with hypernatremia and hyperkalemia also noted, continue IVF hydration per nephro. Worsening thrombocytopenia also noted, no s/s of any active bleeding. H&H stable. Hold AC for now, HIT panel ordered. Lantus qhs added for hyperglycemia, continue BG and SSI Q6hrs 01/13: Patient tolerating tube feeds via PEG, unsure why the patient who had a PEG got so dehydrated at the facility, it appears he was tolerating some PO and as a result PEG was not in use at the facility. He is for debridement tomorrow, will continue free water flushes-150CC Q6 Considering he is on HD, will reassess and stop tomorrow if improved, Keep NPO after Midnight Continue abx therapy, Mental status improving some Discharge planning when stable 01/14/ Na level improving, Cr stable after HD x2, cont iv fluid, follow renal recommendation, pending surgical eval for decubitus ulcer 01/15: Plan to hold hemodialysis today, creatinine IVF/stable. Status post bedside debridement of the decubitus ulcer by general surgery. Patient need deep debridement which is planned for tomorrow. N.p.o. after midnight. Continue to follow BMP 01/16: Positive for COVID-19, moved to COVID floor. We will continue to follow inflammatory markers. cancelled deep debridement at the protocols today. We wi ll continue to follow. Not a candidate for remdesivir due to renal failure, oxygen requirement has not changed, will hold dexamethasone. Continue to follow 01/17: BP remains very soft today, will initiate IV fluid, continue to monitor clinically. Monitor renal function and inflammatory markers. add long acting insulin for hyperglycemia 01/18: K 2.8 today, cont to replete, ordered CT head worsening encephalopathy, cont restrain. Patient remians confused, follow inflammatory markers. follow BMP 01/19: patient on RA, remains confused. Na 150 today, changed iv fluid to D5w and increased free water with TF. follow inflammatory markers. D-dimer >1000, will change heparin to eliquis 2.[address] head w/o any changes 01/21/22; severe sepsis currently patient is on cefepime and daptomycin per ID Sacral decubitus ulcer, surgery following, awaiting debridement 7 days after COVID is positive for OR protocols 01/22/22 possible decubitus ulcer debridement tomorrow per surgery Patient is n.p.o. status from midnight 01/23; patient is scheduled for surgical debridement of decubitus ulcers 01/24; status post surgical debridement of decubitus ulcer, Plavix held for 5 days but surgeon Continue postop care History Interval history: Patient underwent surgical debridement of sacral decubitus ulcer. Tolerated the procedure well Complains of some pain Vital signs noted Hospitalist Physical - Constitutional Vitals: Temp Pulse Resp BP Pulse Ox 98.5 F 103 H 18 119/59 97 01/24/22 05:33 01/24/22 05:33 01/24/22 05:33 01/24/22 05:33 01/24/22 05:33 General appearance: Present: no acute distress, cachectic, other (Noncommunicative) - EENT Eyes: Present: PERRL, EOM intact - Neck Neck: Present: supple, normal ROM - Respiratory Respiratory effort: normal Respiratory: bilateral: diminished, negative: rales, rhonchi, wheezing - Cardiovascular Rhythm: regular Heart Sounds: Present: S1 & S2 - Extremities Extremities: no ischemia Extremity abnormal: edema - Abdominal General gastrointestinal: soft, non-tender, non-distended, normal bowel sounds, other (PEG in place) - Integumentary Integumentary: Present: clear, warm - Psychiatric Psychiatric: appropriate mood/affect, cooperative - Neurologic Neurologic: moves all extremities Results - Labs CBC & Chem 7: 01/23/22 07:46 01/23/22 20:01 Labs: Laboratory Last Values WBC 13.6 K/mm3 (4.5-11.0) H 01/23/22 07:46 RBC 3.58 M/mm3 (3.65-5.03) L 01/23/22 07:46 Hgb 9.7 gm/dl (11.8-15.2) L 01/23/22 07:46 Hct 30.7 % (35.5-45.6) L 01/23/22 07:46 MCV 86 fl (84-94) 01/23/22 07:46 MCH 27 pg (28-32) L 01/23/22 07:46 MCHC 32 % (32-34) 01/23/22 07:46 RDW 23.2 % (13.2-15.2) H 01/23/22 07:46 Plt Count 76 K/mm3 (140-440) L 01/23/22 07:46 [place] % (Auto) 4.2 % (0.0-7.3) 01/17/22 07:06 Eos % (Auto) 1.0 % (0.0-4.3) 01/17/22 07:06 [place] # (Auto) 0.5 K/mm3 (0.0-0.8) 01/17/22 07:06 Eos # (Auto) 0.1 K/mm3 (0.0-0.4) 01/17/22 07:06 Baso # (Auto) 0.1 K/mm3 (0.0-0.1) 01/17/22 07:06 Add Manual Diff Complete 01/23/22 07:46 Total Counted 100 01/23/22 07:46 Seg Neutrophils % Psychological Stress Evaluator 01/17/22 07:06 Seg Neuts % (Manual) 92.0 % (40.0-70.0) H 01/23/22 07:46 Band Neutrophils % 0 % 01/23/22 07:46 Lymphocytes % (Manual) 4.0 % (13.4-35.0) L 01/23/22 07:46 Reactive Lymphs % (Man) 0 % 01/23/22 07:46 Monocytes % (Manual) 2.0 % (0.0-7.3) 01/23/22 07:46 Eosinophils % (Manual) 1.0 % (0.0-4.3) 01/23/22 07:46 Basophils % (Manual) 0 % (0.0-1.8) 01/23/22 07:46 Metamyelocytes % 1.0 % 01/23/22 07:46 Myelocytes % 0 % 01/23/22 07:46 Promyelocytes % 0 % 01/23/22 07:46 Blast Cells % 0 % 01/23/22 07:46 Nucleated RBC % Not Reportable 01/23/22 07:46 Seg Neutrophils # 11.3 K/mm3 (1.8-7.7) H 01/17/22 07:06 Seg Neutrophils # Man 12.5 K/mm3 (1.8-7.7) H 01/23/22 07:46 Band Neutrophils # 0.0 K/mm3 01/23/22 07:46 Lymphocytes # (Manual) 0.5 K/mm3 (1.2-5.4) L 01/23/22 07:46 Abs React Lymphs (Man) 0.0 K/mm3 01/23/22 07:46 Monocytes # (Manual) 0.3 K/mm3 (0.0-0.8) 01/23/22 07:46 Eosinophils # (Manual) 0.1 K/mm3 (0.0-0.4) 01/23/22 07:46 Basophils # (Manual) 0.0 K/mm3 (0.0-0.1) 01/23/22 07:46 Metamyelocytes # 0.1 K/mm3 01/23/22 07:46 Myelocytes # 0.0 K/mm3 01/23/22 07:46 Promyelocytes # 0.0 K/mm3 01/23/22 07:46 Blast Cells # 0.0 K/mm3 01/23/22 07:46 WBC Morphology Not Reportable 01/23/22 07:46 Hypersegmented Neuts Not Reportable 01/23/22 07:46 Hyposegmented Neuts Not Reportable 01/23/22 07:46 Hypogranular Neuts Not Reportable 01/23/22 07:46 Smudge Cells Not Reportable 01/23/22 07:46 Toxic Granulation Not Reportable 01/23/22 07:46 Toxic Vacuolation Not Reportable 01/23/22 07:46 Dohle Bodies Not Reportable 01/23/22 07:46 Pelger-Huet Anomaly Not Reportable 01/23/22 07:46 Sarah Rods Not Reportable 01/23/22 07:46 Platelet Estimate Consistent w auto 01/23/22 07:46 Clumped Platelets Not Reportable 01/23/22 07:46 Plt Clumps, EDTA Not Reportable 01/23/22 07:46 Large Platelets Not Reportable 01/23/22 07:46 Giant Platelets Not Reportable 01/23/22 07:46 Platelet Satelliting Not Reportable 01/23/22 07:46 Plt Morphology Comment Not Reportable 01/23/22 07:46 RBC Morphology Not Reportable 01/23/22 07:46 Dimorphic RBCs Not Reportable 01/23/22 07:46 Polychromasia Not Reportable 01/23/22 07:46 Hypochromasia 1+ 01/23/22 07:46 Poikilocytosis Not Reportable 01/23/22 07:46 Anisocytosis 1+ 01/23/22 07:46 Microcytosis Not Reportable 01/23/22 07:46 Macrocytosis Not Reportable 01/23/22 07:46 Spherocytes Not Reportable 01/23/22 07:46 Pappenheimer Bodies Not Reportable 01/23/22 07:46 Sickle Cells Not Reportable 01/23/22 07:46 Target Cells Not Reportable 01/23/22 07:46 Tear Drop Cells Not Reportable 01/23/22 07:46 Ovalocytes Not Reportable 01/23/22 07:46 Helmet Cells Not Reportable 01/23/22 07:46 Greer-O'Kean Bodies Not Reportable 01/23/22 07:46 [place] Rings Not Reportable 01/23/22 07:46 York Cells Not Reportable 01/23/22 07:46 Bite Cells Not Reportable 01/23/22 07:46 Crenated Cell Not Reportable 01/23/22 07:46 Elliptocytes Not Reportable 01/23/22 07:46 Acanthocytes (Spur) Not Reportable 01/23/22 07:46 Rouleaux Not Reportable 01/23/22 07:46 Hemoglobin C Crystals Not Reportable 01/23/22 07:46 Schistocytes Not Reportable 01/23/22 07:46 Malaria parasites Not Reportable 01/23/22 07:46 Jigar Bodies Not Reportable 01/23/22 07:46 Hem Pathologist Commnt No 01/23/22 07:46 D-Dimer 940.59 ng/mlDDU (0-234) H 01/20/22 04:39 Heparin Anti-Xa, Unfract Negative (Negative) 01/13/22 04:56 Sodium 142 mmol/L (137-145) 01/23/22 20:01 Potassium 5.0 mmol/L (3.6-5.0) D 01/23/22 20:01 Chloride 110.5 mmol/L (98-107) H 01/23/22 20:01 Carbon Dioxide 20 mmol/L (22-30) L 01/23/22 20:01 Anion Gap 17 mmol/L 01/23/22 20:01 BUN 66 mg/dL (9-20) H 01/23/22 20:01 Creatinine 1.6 mg/dL (0.8-1.3) H 01/23/22 20:01 Estimated GFR 44 ml/min 01/23/22 20:01 BUN/Creatinine Ratio 41 % 01/23/22 20:01 Glucose 153 mg/dL (75-100) H 01/23/22 20:01 POC Glucose 257 mg/dL (70-105) H 01/24/22 06:23 Lactic Acid 1.70 mmol/L (0.7-2.0) 01/13/22 04:56 Calcium 8.1 mg/dL (8.4-10.2) L 01/23/22 20:01 Phosphorus 3.60 mg/dL (2.5-4.5) 01/17/22 07:06 Magnesium 2.40 mg/dL (1.7-2.3) H 01/18/22 12:52 Ferritin 560.7 ng/mL (30.0-300.0) H 01/20/22 04:39 Total Bilirubin 0.60 mg/dL (0.1-1.2) 01/11/22 03:08 Direct Bilirubin 0.3 mg/dL (0-0.2) H 01/11/22 03:08 Indirect Bilirubin 0.3 mg/dL 01/11/22 03:08 AST 45 units/L (5-40) H 01/11/22 03:08 ALT 29 units/L (7-56) 01/11/22 03:08 Alkaline Phosphatase 180 units/L (35-129) H 01/11/22 03:08 Lactate Dehydrogenase 334 units/L (91-180) H 01/20/22 04:39 Total Creatine Kinase 15 units/L (55-170) L 01/20/22 04:39 C-Reactive Protein 3.10 mg/dL (0.00-1.30) H 01/22/22 06:10 Serum Total Protein 5.4 g/dL (6.1-8.1) L 01/15/22 08:41 Total Protein 7.3 g/dL (6.3-8.2) 01/11/22 03:08 Albumin 2.0 g/dL (3.8-4.8) L 01/15/22 08:41 Albumin/Globulin Ratio 0.5 % 01/11/22 03:08 Uuyqw-0-Xqkjzdrnp 0.5 g/dL (0.2-0.3) H 01/15/22 08:41 Odiul-2-Oalxbyocf 0.9 g/dL (0.5-0.9) 01/15/22 08:41 Beta Globulins 0.6 g/dL (0.2-0.5) H 01/15/22 08:41 Gamma Globulins 1.2 g/dL (0.8-1.7) 01/15/22 08:41 Abnorm Protein Band 1 see below 01/15/22 08:41 PEP Interpretation see below H 01/15/22 08:41 Serotonin Release Assay See scanned result 01/13/22 04:56 Procalcitonin 0.74 ng/mL (<0.15) 01/20/22 04:39 Urine Color Claudia (Yellow) 01/12/22 11:44 Urine Turbidity Cloudy (Clear) 01/12/22 11:44 Urine pH 5.0 (5.0-7.0) 01/12/22 11:44 Ur Specific [place] 1.030 (1.003-1.030) 01/12/22 11:44 Urine Protein 30 mg/dl mg/dL (Negative) 01/12/22 11:44 Urine Glucose (UA) Negative mg/dL (Negative) 01/12/22 11:44 Urine Ketones Negative mg/dL (Negative) 01/12/22 11:44 Urine Blood Moderate (Negative) A 01/12/22 11:44 Urine Nitrite Negative (Negative) 01/12/22 11:44 Ur Reducing Substances Not Reportable 01/12/22 11:44 Urine Bilirubin Negative (Negative) 01/12/22 11:44 Urine Ictotest Not Reportable 01/12/22 11:44 Urine Urobilinogen 0.0 mg/dL (<2.0) 01/12/22 11:44 Ur Leukocyte Esterase Trace (Negative) 01/12/22 11:44 Urine WBC (Auto) > 182.0 /HPF (0.0-6.0) H 01/12/22 11:44 Urine RBC (Auto) 12.0 /HPF (0.0-6.0) 01/12/22 11:44 Urine Bacteria (Auto) 2+ /HPF (Negative) 01/12/22 11:44 Urine WBC Clumps 3+ /HPF 01/11/22 07:14 Urine Mucus Few /HPF 01/12/22 11:44 Urine Total Volume 1700 ml 01/20/22 17:30 Urine Creatinine 61.8 mg/dL (0.1-20.0) H 01/20/22 17:30 Height (in) 70.0 inches 01/20/22 17:30 Weight (lb) 124.7 lbs 01/20/22 17:30 Creatinine Clearance 28 01/20/22 17:30 Urine Sodium 58 mmol/L 01/12/22 11:44 Nasal Screen MRSA (PCR) Positive (Negative) 01/12/22 Unknown Random Vancomycin 10.3 ug/mL (0-40.0) 01/18/22 07:50 KAMILLA Screen Negative (Negative) 01/14/22 05:47 Proteinase 3 (PR3) Ab <1.0 AI (<1.0) 01/13/22 18:40 Myeloperoxidase Ab <1.0 AI (<1.0) 01/13/22 18:40 Heparin-induced Plt Ab Positive (Negative) H 01/13/22 04:56 UF Heparin High Dose 3 % Release 01/13/22 04:56 BRYCE UFH Low Dose 0.1 4 % Release 01/13/22 04:56 BRYCE UFH Low Dose 0.5 5 % Release 01/13/22 04:56 Complement C3 203 mg/dL (82-185) H 01/15/22 08:41 Complement C4 52 mg/dL (15-53) 01/15/22 08:41 C. difficile Tox (PCR) Negative (Negative) 01/15/22 11:32 Coronavirus (PCR) Positive (Negative) A 01/15/22 10:30 SARS-CoV-2 (PCR) Negative (Negative) 01/22/22 10:30 Hepatitis A IgM Ab Non-reactive (NonReactive) 01/13/22 18:40 Hep Bs Antigen Non-reactive (Negative) 01/13/22 18:40 Hep B Core IgM Ab Non-reactive (NonReactive) 01/13/22 18:40 Hepatitis C Antibody Non-reactive (NonReactive) 01/13/22 18:40 Miscellaneous Test Flexitest 1 H 01/13/22 18:40 Blood Type A POSITIVE 01/24/22 06:50 Antibody Screen Negative 01/24/22 06:50 [place]/IV: Voiding Method Indwelling Catheter Active Medications - Current Medications Current Medications: Generic Name Dose Route Start Last Admin Trade Name Freq PRN Reason Stop Dose Admin Acetaminophen 650 mg 01/11/22 05:40 01/19/22 23:03 Acetaminophen 325 Mg Tab PO 650 mg Q4H PRN Administration Pain MILD(1-3)/Fever >100.5/ROGERS Albuterol 2.5 mg 01/11/22 05:40 Albuterol 2.5 Mg/3 Ml Nebu IH Q3HRT PRN Shortness Of Breath Lipase/Protease/Amylase 1 each 01/17/22 16:03 Lipase 10,500/Protease 25,000/Amylase 43,750 (Units) Dr Mariee FEEDTUBE PRN PRN For Clogged Feeding Tube Ascorbic Acid 1,000 mg 01/19/22 22:00 01/24/22 09:16 Ascorbic Acid 500 Mg Tab PO 1,000 mg BID ALEXSANDRA Administration Aspirin 81 mg 01/13/22 11:00 01/24/22 09:16 Aspirin 81 Mg Tab Chew FEEDTUBE 81 mg QDAY ALEXSANDRA Administration Atorvastatin Calcium 80 mg 01/11/22 22:00 01/23/22 23:17 Atorvastatin 40 Mg Tab PO 80 mg QHS ALEXSANDRA Administration Cholecalciferol 5,000 unit 01/20/22 10:00 01/24/22 09:16 Cholecalciferol (Vit D3) 5,000 Unit Tab PO 5,000 unit DAILY ALEXSANDRA Administration Dextrose 50 ml 01/11/22 05:40 Dextrose 50% In Water (25gm) 50 Ml Syringe IV Q30MIN PRN Hypoglycemia Protocol Famotidine 10 mg 01/13/22 11:00 01/24/22 09:16 Famotidine 10 Mg Tab FEEDTUBE 10 mg BID ALEXSANDRA Administration Hydralazine HCl 10 mg 01/11/22 05:54 Hydralazine 20 Mg/1 Ml Inj IV Q6H PRN Blood Pressure Cefepime HCl 1 gm in 100 mls @ 200 mls/hr 01/13/22 18:00 01/23/22 22:30 Cefepime/Ns 1 Gm/100 Ml IV 200 mls/hr QPM ALEXSANDRA Administration Protocol Sodium Chloride 100 mls @ 999 mls/hr 01/13/22 18:00 Nacl 0.9% IV ASHLEY PRN Hypotension Daptomycin 300 mg/ Sodium 100 mls @ 200 mls/hr 01/19/22 12:00 01/23/22 18:21 Chloride IV 200 mls/hr Q48H ALEXSANDRA Administration Protocol Sodium Chloride 1,000 mls @ 125 mls/hr 01/20/22 15:00 01/23/22 23:17 Nacl 0.45% 1000 Ml IV 125 mls/hr DIRECT ALEXSANDRA Administration Insulin Glargine 15 units 01/18/22 22:00 01/23/22 23:55 Insulin Glargine 100 Units/Ml SUB-Q 15 units HS ALEXSANDRA Administration Insulin Human Lispro 0 unit 01/11/22 06:00 01/24/22 06:56 Insulin Lispro 100 Unit/Ml SUB-Q 6 unit Q6HR ALEXSANDRA Administration Protocol Midodrine 10 mg 01/12/22 09:03 01/24/22 09:16 Midodrine 10 Mg Tab PO 10 mg TID@0800,1200,1600 ALEXSANDRA Administration Ondansetron HCl 4 mg 01/11/22 05:40 Ondansetron 4 Mg/2 Ml Inj IV Q8H PRN Nausea And Vomiting Potassium Chloride 30 meq 01/18/22 10:00 01/24/22 09:16 Potassium Chloride Er 10 Meq Tab PO 30 meq QDAY ALEXSANDRA Administration Prazosin HCl 5 mg 01/15/22 22:00 01/24/22 09:16 Prazosin 5 Mg Cap PO 5 mg Q12HR ALEXSANDRA Administration Simple Syrup 15 ml 01/17/22 16:03 Simple Syrup 15 Ml FEEDTUBE PRN PRN Hypoglycemia Simple Syrup 30 ml 01/17/22 16:03 Simple Syrup 15 Ml FEEDTUBE PRN PRN Hypoglycemia Sodium Bicarbonate 325 mg 01/17/22 16:03 Sodium Bicarbonate 325 Mg Tab FEEDTUBE PRN PRN For Clogged Feeding Tube Sodium Chloride 10 ml 01/11/22 10:00 01/24/22 09:16 Sodium Chloride 0.9% 10 Ml Flush Syringe IV 10 ml BID ALEXSANDRA Administration Sodium Chloride 10 ml 01/11/22 05:40 Sodium Chloride 0.9% 10 Ml Flush Syringe IV PRN PRN LINE FLUSH Sodium Hypochlorite 1 applic 01/14/22 10:00 01/23/22 23:17 Sodium Hypochlorite, Dakin's 1/2 Strength (0.25%) 473 Ml Topical Soln TP Not Given BID ALEXSANDRA Zinc Sulfate 220 mg 01/19/22 22:00 01/24/22 09:16 Zinc Sulfate 220 Mg Cap PO 220 mg BID ALEXSANDRA Administration Nutrition/Malnutrition Assess - Dietary Evaluation Nutrition/Malnutrition Findings: Nutrition Notes Start: 01/12/22 13:45 Freq: Status: Active Protocol: Document 01/21/22 16:43 JARON (Rec: 01/21/22 17:02 JARON [email or web address]) Nutrition Notes Initial or Follow up Brief Note Current Diagnosis Acute Kidney Injury,CKD(stage I-IV),Decubitus(Pressure Ulcer ),Diabetes,Sepsis,Hypertension ,Stroke Other Pertinent Diagnosis CHF, Metabolic Encephalopathy, COVID-19, SIRS. Current Diet TF-Glucerna 1.2 Nicolas @ 75 ml/hr (since D 01/19). Height 5 ft 10 in Weight 56.69 kg [place] Body Weight (kg) 75.45 BMI 17.9 Weight change and time frame No body weight change reported in 10 days Weight Status Underweight Subjective/Other Information RD consult for routine F/U on TF tolerance/continuation. TF continues as prescribed, no reports on tolerance available at the time, will assess at F/U. Pt is on Room Air, O2 saturation @ 100%, according to Physical Assessment History notes. Percent of energy/protein needs met: Prescribed TF-Glucerna 1.2 Nicolas @ 75 ml/hr provides for energy/protein needs (2,160 Kcal/108 g) during LOS, 95% Kcal; 100% AA. #2 Nutrition Diagnosis Malnutrition Diagnosis Progress(for reassessment Continues documentation) #1 Nutrition Diagnosis Swallowing difficulty Diagnosis Progress(for reassessment Continues documentation) Is patient on ventilator? No Is Patient Ambulatory and/or Out of Bed No REE-(Garrard-St. Jeor-confined to bed) 1635.336 Kcal/Kg value to use for calculation 40 Approximate Energy Requirements Using 2268 kcal/Kg Calculation Used for Recommendations Kcal/kg Additional Notes Protein: 1.5-2 g/Kg IBW; 85- 113 g/day. Fluids: 1 ml/Kcal, or as per MD. Nutrition Intervention Nutrition Support: Continue TF-Glucerna 1.2 Nicolas @ 75 ml/hr. Flush: 120 ml water Q 4 hr, or as per MD. Kcal 2,160 Protein (gm) 108 Carbohydrates (gm) 206 Fat (gm) 108 Fluid (mL) 1,449 Fiber (gm) 29 % RDI: 95% Kcal; 100% AA. Goal #1 Provide at least 75% of energy /protein needs through Enteral Feeding during LOS. Follow-Up By: 01/28/22 Additional Comments Continue monitoring TF tolerance and BM.
[2022-01-24] MEDS: SODIUM HYPOCHLORITE, DAKIN'S 1/2 STRENGTH (0.25%) 473 ML TOPICAL SOLN TP SCH ×2 (10:00→22:12)
[2022-01-24] MEDS: SODIUM CHLORIDE 0.45% 1000 ML 1,000 ML IV SCH (11:40)
--- NOTE | 2022-01-24 14:27 | Progress Note ---
Assessment and Plan Assessment: Acute metabolic encephalopathy MAURI (acute kidney injury) Hypertension Congestive heart failure Diabetes Hypernatremia SIRS (systemic inflammatory response syndrome COVID-positive Plan: No new renal labs noted for today. Serum creatinine was 1.6 yesterday. No acute indication for HD S/P vasc cath removal this morning on 01/24/22 Renal US was negative for obstruction Renally dose medications Strict I&O's daily Obtain daily weights Continue to monitor renal function Plan of care reviewed by Dr. Nava Subjective Date of service: 01/24/22 Principal diagnosis: MAURI Interval history: Patient now with active COVID-19 positive infection, labs and chart reviewed Objective - Vital Signs Vital signs: Vital Signs - 12hr 01/24/22 01/24/22 01/24/22 05:33 10:00 12:03 Temperature 98.5 F 98.5 F Pulse Rate 103 H 99 H Respiratory 18 20 Rate Blood Pressure 119/59 89/47 O2 Sat by Pulse 97 98 94 Oximetry - Lab 01/23/22 07:46 01/24/22 10:02 Most recent lab results Calcium 8.0 mg/dL (8.4-10.2) L 01/24/22 10:02 Phosphorus 3.60 mg/dL (2.5-4.5) 01/17/22 07:06 Magnesium 2.40 mg/dL (1.7-2.3) H 01/18/22 12:52 Urine Creatinine 61.8 mg/dL (0.1-20.0) H 01/20/22 17:30 Urine Sodium 58 mmol/L 01/12/22 11:44 Medications & Allergies - Medications Allergies/Adverse Reactions: Allergies heparin Allergy (Verified 01/19/22 10:43) Unknown Home Medications: Home Medications Medication Instructions Recorded Confirmed Last Taken Type cephALEXin [Keflex] 500 mg PO Q6HR 7 Days #28 capsule 12/09/21 01/14/22 Unknown Rx Aspirin [[place] Aspirin EC] 81 mg PO QDAY 12/14/21 01/14/22 Unknown History Atorvastatin [Lipitor] 80 mg PO QHS 12/14/21 01/14/22 Unknown History Dapagliflozin Propanediol [Farxiga] 10 mg PO QDAY 12/14/21 01/14/22 Unknown History Insulin Detemir [Levemir VIAL] 25 unit SQ QHS 12/14/21 01/14/22 Unknown History Insulin Lispro [Admelog] 100 unit SQ ACHS 12/14/21 01/14/22 Unknown History Tamsulosin [Flomax] 0.4 mg PO QDAY 12/14/21 01/14/22 Unknown History carvediloL [Coreg] 3.125 mg PO BID 12/14/21 01/14/22 Unknown History Clopidogrel [Plavix] 75 mg PO QDAY tablet 12/27/21 01/14/22 Unknown Rx Sertraline [Zoloft] 100 mg PO QDAY #30 12/27/21 01/14/22 Unknown Rx Simple Syrup 15 ml FEEDTUBE PRN PRN oral.liqd 12/27/21 01/14/22 Unknown Rx Simple Syrup 30 ml FEEDTUBE PRN PRN oral.liqd 12/27/21 01/14/22 Unknown Rx Sodium Bicarbonate 325 mg FEEDTUBE PRN PRN #30 tablet 12/27/21 01/14/22 Unknown Rx Torsemide [Demadex] 20 mg PO QDAY #30 12/27/21 01/14/22 Unknown Rx Active Medications: Generic Name Dose Route Start Last Admin Trade Name Freq PRN Reason Stop Dose Admin Acetaminophen 650 mg 01/11/22 05:40 01/19/22 23:03 Acetaminophen 325 Mg Tab PO 650 mg Q4H PRN Administration Pain MILD(1-3)/Fever >100.5/ROGERS Albuterol 2.5 mg 01/11/22 05:40 Albuterol 2.5 Mg/3 Ml Nebu IH Q3HRT PRN Shortness Of Breath Lipase/Protease/Amylase 1 each 01/17/22 16:03 Lipase 10,500/Protease 25,000/Amylase 43,750 (Units) Dr Mariee FEEDTUBE PRN PRN For Clogged Feeding Tube Ascorbic Acid 1,000 mg 01/19/22 22:00 01/24/22 09:16 Ascorbic Acid 500 Mg Tab PO 1,000 mg BID ALEXSANDRA Administration Aspirin 81 mg 01/13/22 11:00 01/24/22 09:16 Aspirin 81 Mg Tab Chew FEEDTUBE 81 mg QDAY ALEXSANDRA Administration Atorvastatin Calcium 80 mg 01/11/22 22:00 01/23/22 23:17 Atorvastatin 40 Mg Tab PO 80 mg QHS ALEXSANDRA Administration Cholecalciferol 5,000 unit 01/20/22 10:00 01/24/22 09:16 Cholecalciferol (Vit D3) 5,000 Unit Tab PO 5,000 unit DAILY ALEXSANDRA Administration Dextrose 50 ml 01/11/22 05:40 Dextrose 50% In Water (25gm) 50 Ml Syringe IV Q30MIN PRN Hypoglycemia Protocol Famotidine 10 mg 01/13/22 11:00 01/24/22 09:16 Famotidine 10 Mg Tab FEEDTUBE 10 mg BID ALEXSANDRA Administration Hydralazine HCl 10 mg 01/11/22 05:54 Hydralazine 20 Mg/1 Ml Inj IV Q6H PRN Blood Pressure Cefepime HCl 1 gm in 100 mls @ 200 mls/hr 01/13/22 18:00 01/23/22 22:30 Cefepime/Ns 1 Gm/100 Ml IV 200 mls/hr QPM ALEXSANDRA Administration Protocol Sodium Chloride 100 mls @ 999 mls/hr 01/13/22 18:00 Nacl 0.9% IV ASHLEY PRN Hypotension Daptomycin 300 mg/ Sodium 100 mls @ 200 mls/hr 01/19/22 12:00 01/23/22 18:21 Chloride IV 200 mls/hr Q48H ALEXSANDRA Administration Protocol Sodium Chloride 1,000 mls @ 125 mls/hr 01/20/22 15:00 01/24/22 11:40 Nacl 0.45% 1000 Ml IV 125 mls/hr DIRECT ALEXSANDRA Administration Insulin Glargine 15 units 01/18/22 22:00 01/23/22 23:55 Insulin Glargine 100 Units/Ml SUB-Q 15 units HS ALEXSANDRA Administration Insulin Human Lispro 0 unit 01/11/22 06:00 01/24/22 11:41 Insulin Lispro 100 Unit/Ml SUB-Q 6 unit Q6HR ALEXSANDRA Administration Protocol Midodrine 10 mg 01/12/22 09:03 01/24/22 11:40 Midodrine 10 Mg Tab PO 10 mg TID@0800,1200,1600 ALEXSANDRA Administration Ondansetron HCl 4 mg 01/11/22 05:40 Ondansetron 4 Mg/2 Ml Inj IV Q8H PRN Nausea And Vomiting Potassium Chloride 30 meq 01/18/22 10:00 01/24/22 09:16 Potassium Chloride Er 10 Meq Tab PO 30 meq QDAY ALEXSANDRA Administration Prazosin HCl 5 mg 01/15/22 22:00 01/24/22 09:16 Prazosin 5 Mg Cap PO 5 mg Q12HR ALEXSANDRA Administration Simple Syrup 15 ml 01/17/22 16:03 Simple Syrup 15 Ml FEEDTUBE PRN PRN Hypoglycemia Simple Syrup 30 ml 01/17/22 16:03 Simple Syrup 15 Ml FEEDTUBE PRN PRN Hypoglycemia Sodium Bicarbonate 325 mg 01/17/22 16:03 Sodium Bicarbonate 325 Mg Tab FEEDTUBE PRN PRN For Clogged Feeding Tube Sodium Chloride 10 ml 01/11/22 10:00 01/24/22 09:16 Sodium Chloride 0.9% 10 Ml Flush Syringe IV 10 ml BID ALEXSANDRA Administration Sodium Chloride 10 ml 01/11/22 05:40 Sodium Chloride 0.9% 10 Ml Flush Syringe IV PRN PRN LINE FLUSH Sodium Hypochlorite 1 applic 01/14/22 10:00 01/24/22 10:00 Sodium Hypochlorite, Dakin's 1/2 Strength (0.25%) 473 Ml Topical Soln TP 1 applicatio BID ALEXSANDRA Administration Zinc Sulfate 220 mg 01/19/22 22:00 01/24/22 09:16 Zinc Sulfate 220 Mg Cap PO 220 mg BID ALEXSANDRA Administration
[2022-01-24] MEDS: CEFEPIME/NS 1 GM/100 ML 1 GM/100 ML BAG IV SCH (17:33)
[2022-01-24] MEDS: oxyCODONE /ACETAMINOPHEN 5-325MG TAB PO PRN (18:03)
[2022-01-24] MEDS: INSULIN GLARGINE 100 UNITS/ML SUB-Q SCH (22:11)
[2022-01-25] MEDS: INSULIN LISPRO 100 UNIT/ML SUB-Q SCH ×7 (02:07→18:09)
[2022-01-25] MEDS: FREE WATER PO SCH ×7 (02:08→22:12)
[2022-01-25] MEDS: SODIUM CHLORIDE 0.45% 1000 ML 1,000 ML IV SCH (02:08)
[2022-01-25] MEDS: MORPHINE 2 MG/1 ML INJ IV PRN (02:40)
[2022-01-25 06:31] LABS: Hematocrit 23.9 % (35.5-45.6); Hemoglobin 7.3 gm/dl (11.8-15.2); Mean Corpuscular HGB Conc 31 % (32-34); Mean Corpuscular Volume 86 fl (84-94); Platelet Count 102 K/mm3 (140-440); Red Blood Count 2.78 M/mm3 (3.65-5.03)
[2022-01-25 06:59] LABS: Red Cell Distribution Width 23.4 % (13.2-15.2)
[2022-01-25 07:24] LABS: Anisocytosis 2+; Band Neutrophils # (Manual) 0.2 K/mm3; Basophils % (Manual) 0 % (0.0-1.8); Eosinophils % (Manual) 0 % (0.0-4.3); Platelet Estimate Consistent w Auto; Total Cells Counted 100; Toxic Granulation 2+
--- NOTE | 2022-01-25 07:45 | Progress Note ---
Assessment and Plan Patient is 1 day status post debridement in the OR. There was apparently bleeding with the debridement that was difficult to control in the sacrum. We will hold Plavix at this time. For the next 5 days. Right posterior leg and ankle wounds evaluated continued signs of necrosis. Salvage of the limb is unlikely. Vascular evaluation for distal peripheral patient has been requested and is pending. 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 There is also significant risk for fecal soilage because of the proximity to the anus. Consider diversion. Finally patient with purulent drainage from Val[place]illo catheter and Val[place]illo to be changed. Significant amount of air also present in the bladder. May need to ask urology to assist in evaluation for colovesicular fistula. Consider retrograde cystogram Subjective Date of service: 01/25/22 Patient Reports: Positive: no new complaints Objective Vital Signs - 12hr 01/24/22 01/24/22 01/24/22 21:27 22:00 22:14 Temperature 98.2 F Pulse Rate 85 85 Respiratory 18 17 Rate Respiratory 17 Rate [ Generalized] Blood Pressure 125/56 125/56 O2 Sat by Pulse 100 100 Oximetry 01/25/22 01/25/22 01/25/22 00:00 02:40 03:10 Temperature Pulse Rate 83 Respiratory 17 17 Rate Respiratory Rate [ Generalized] Blood Pressure O2 Sat by Pulse Oximetry 01/25/22 05:06 Temperature 97.6 F Pulse Rate 88 Respiratory 18 Rate Respiratory Rate [ Generalized] Blood Pressure 109/54 O2 Sat by Pulse 98 Oximetry - Genitourinary other (Val[place]illo catheter with grossly purulent drainage. We will change his catheter today. Patient may have colovesicular fistula.) - Integumentary other (No signs of right posterior leg and heel as well as sacrum with a decubitus of changes today. There is continued evidence of tissue necrosis at all sites. Fecal soilage to the lower aspect of the sacral wound is also apparent) - Labs 01/25/22 05:50 01/25/22 05:50 Diabetes panel 01/24/22 01/25/22 Range/Units 10:02 05:50 Sodium 142 140 (137-145) mmol/L Potassium 4.9 5.1 H (3.6-5.0) mmol/L Chloride 109.1 H 109.6 H (98-107) mmol/L Carbon Dioxide 20 L 23 (22-30) mmol/L BUN 69 H 68 H (9-20) mg/dL Creatinine 1.9 H 1.8 H (0.8-1.3) mg/dL Glucose 284 H 161 H (75-100) mg/dL Calcium 8.0 L 8.0 L (8.4-10.2) mg/dL Calcium panel 01/24/22 01/25/22 Range/Units 10:02 05:50 Calcium 8.0 L 8.0 L (8.4-10.2) mg/dL Pituitary panel 01/24/22 01/25/22 Range/Units 10:02 05:50 Sodium 142 140 (137-145) mmol/L Potassium 4.9 5.1 H (3.6-5.0) mmol/L Chloride 109.1 H 109.6 H (98-107) mmol/L Carbon Dioxide 20 L 23 (22-30) mmol/L BUN 69 H 68 H (9-20) mg/dL Creatinine 1.9 H 1.8 H (0.8-1.3) mg/dL Glucose 284 H 161 H (75-100) mg/dL Calcium 8.0 L 8.0 L (8.4-10.2) mg/dL Adrenal panel 01/24/22 01/25/22 Range/Units 10:02 05:50 Sodium 142 140 (137-145) mmol/L Potassium 4.9 5.1 H (3.6-5.0) mmol/L Chloride 109.1 H 109.6 H (98-107) mmol/L Carbon Dioxide 20 L 23 (22-30) mmol/L BUN 69 H 68 H (9-20) mg/dL Creatinine 1.9 H 1.8 H (0.8-1.3) mg/dL Glucose 284 H 161 H (75-100) mg/dL Calcium 8.0 L 8.0 L (8.4-10.2) mg/dL
--- NOTE | 2022-01-25 08:09 | Progress Note ---
Assessment and Plan Assessment and plan: This is a 66-year-old male with known past medical history of hypertension, CVA, CHF, DM, dysphagia s/p PEGtube placement admitted for sepsis and MAURI Assessment and Plan; --surgical debridement of decubitus ulcer 01/23/2022 Patient tolerated the procedure well Surgery recommended to DC Plavix for 5 days Postop care, pain medications #Acute Metabolic Encephalopathy - Multifactorial: probably due to azotemia vs hypernatremia, vs infectious process - on Continous IVF hydration and empiric IV abx - Mentation with mild improvement, following simple commands - CT head no changes - Frequent reorientation - Avoid sedatives agents - Maintenance of sleep-wake cycle #Hypotension 2/ #Sepsis Vs hypovolemia #H/o Congestive Heart Failure(CHF) - Presented with tachycardia and hypotension - Patient remains hypotension this am, was febrile overnight and worsen leukocytosis this am - 12/14/21 Ech reviewed EF 45-50%, patient appear hypovolemic and dry - Continue IVF hydration per Nephro - Hold home antihypertensive agents - Midodrine added - cont. IVF, increased free water with TF for hypernatremia - Continue blood pressure monitor per protocol - Maintain MAP above 65 - Strict intake and output and daily weight #Acute Kidney Injury(MAURI) most likely ATN, placed on HD #Hypernatremia #Hyperkalemia, resolved # hypokalemia - probably due to hypotension/hypovelemia - Per record Scr. was 1.2 from last admit on 12/2021 - Scr. as high as 5.9, BUN 111 - s/p X1 dose of kayexalate, FWF for hypernatremia - Nephrology on consult, appreciated recommendation - no hydronephrosis on renal US - Strict intake and output - Avoid nephrotoxic medications; Renally dose medications - Vallecillo in place, initiated on HD 01/14 - replete electrolytes as needed #Severe Sepsis- multifactorial #Acute cystitis/UTI/VRE UTI # Positive Covid 19 #Infected Sacral Decubitis Ulcer/Proteus mirabilis #Leukocytosis #Lactic Acidosis - Presented with tachycardia and hypotension - Patient remains hypotension this am, was febrile overnight and worsen leukocytosis this am - Cultures pending, MRSA PCR positive - With multiple wounds, including malodourous, unstageable sacral decubitis. -Patient is on cefepime and daptomycin per ID - General Surgery consulted for possible debridement, wound care eval and treat - Wound care also consulted #Dysphagia s/p PEGtube Placement - Nutrition consulted - Initiated enteral nutrition #Thrombocytopenia - Presented with low plt - Plt count worsen this am - no s/s of any active bleeding - Will hold AC- heparin SubQ for now - H&H stable - HIT panel ordered #Type 2 Diabetes with Hyperglycemia - Continue BG and SSI Q6hrs - Lantus added qHs - While critically ill target blood glucose of 140-180 #GI/DVT Prophylaxis - PPI- Pepcid - SCDs to bilateral lower extremities while in bed Consults and recommendations noted and appreciated Closely monitor the patient and adjust management as needed Plan of care reviewed with patient and his nurse DC planning per case management/SNF placement COVID-19 PCR positive Rapid PCR test negative C. difficile negative Home O2 evaluation prior to discharge Hospital Course to Date: 01/12: Patient remains encephalopathic but more awake, following simple commands. Still hypotensive this am, probable sepsis. Febrile overnight with worsening leukocytosis this am. Cultures are pending. Continue IVF hydration and empiric IV abx. Multiple wounds, including unstageable sacral decub and MRSA PCR positive. IV Vanco was also initiated, renal dose per pharmacy. ID consulted. Midodrine also added TID. General surgery and wound care was also consulted for wounds eval and treatment. Worsening renal function with hypernatremia and hyperkalemia also noted, continue IVF hydration per nephro. Worsening thrombocytopenia also noted, no s/s of any active bleeding. H&H stable. Hold AC for now, HIT panel ordered. Lantus qhs added for hyperglycemia, continue BG and SSI Q6hrs 01/13: Patient tolerating tube feeds via PEG, unsure why the patient who had a PEG got so dehydrated at the facility, it appears he was tolerating some PO and as a result PEG was not in use at the facility. He is for debridement tomorrow, will continue free water flushes-150CC Q6 Considering he is on HD, will reassess and stop tomorrow if improved, Keep NPO after Midnight Continue abx therapy, Mental status improving some Discharge planning when stable 01/14/ Na level improving, Cr stable after HD x2, cont iv fluid, follow renal recommendation, pending surgical eval for decubitus ulcer 01/15: Plan to hold hemodialysis today, creatinine IVF/stable. Status post bedside debridement of the decubitus ulcer by general surgery. Patient need deep debridement which is planned for tomorrow. N.p.o. after midnight. Continue to follow BMP 01/16: Positive for COVID-19, moved to COVID floor. We will continue to follow inflammatory markers. cancelled deep debridement at the protocols today. We will continue to follow. Not a candidate for remdesivir due to renal failure, oxygen requirement has not changed, will hold dexamethasone. Continue to follow 01/17: BP remains very soft today, will initiate IV fluid, continue to monitor clinically. Monitor renal function and inflammatory markers. add long acting insulin for hyperglycemia 01/18: K 2.8 today, cont to replete, ordered CT head worsening encephalopathy, cont restrain. Patient remians confused, follow inflammatory markers. follow BMP 01/19: patient on RA, remains confused. Na 150 today, changed iv fluid to D5w and increased free water with TF. follow inflammatory markers. D-dimer >1000, will change heparin to eliquis 2.[address] head w/o any changes 01/21/22; severe sepsis currently patient is on cefepime and daptomycin per ID Sacral decubitus ulcer, surgery following, awaiting debridement 7 days after COVID is positive for OR protocols 01/22/22 possible decubitus ulcer debridement tomorrow per surgery Patient is n.p.o. status from midnight 01/23; patient is scheduled for surgical debridement of decubitus ulcers 01/24; status post surgical debridement of decubitus ulcer, Plavix held for 5 days but surgeon Continue postop care 01/25 patient's hemoglobin dropped to 7.3, transfuse 1 unit PRBC Continue postop care, vital signs noted History Interval history: I have seen and examined the patient at the bedside Patient's chart and medications reviewed Patient underwent surgical debridement of sacral decubitus Surgical debridement of right ankle continue postop care Complains of some pain Vital signs noted Hospitalist Physical - Constitutional Vitals: Temp Pulse Resp BP Pulse Ox 97.6 F 88 18 109/54 98 01/25/22 05:06 01/25/22 05:06 01/25/22 05:06 01/25/22 05:06 01/25/22 05:06 General appearance: Present: no acute distress, cachectic, other (Noncommunic ative) - EENT Eyes: Present: PERRL, EOM intact - Neck Neck: Present: supple, normal ROM - Respiratory Respiratory effort: normal Respiratory: bilateral: diminished, rhonchi, negative: rales, wheezing - Cardiovascular Rhythm: regular Heart Sounds: Present: S1 & S2 - Extremities Extremities: abnormal (Debridement of the heel dressing in place) - Abdominal General gastrointestinal: soft, non-tender, non-distended, other (PEG tube in place) - Integumentary Integumentary: Present: clear, warm, erythema (Debridement of sacral decubitus dressing in place) - Psychiatric Psychiatric: cooperative - Neurologic Neurologic: moves all extremities Results - Labs CBC & Chem 7: 01/25/22 05:50 01/25/22 05:50 Labs: Laboratory Last Values WBC 15.8 K/mm3 (4.5-11.0) H 01/25/22 05:50 RBC 2.78 M/mm3 (3.65-5.03) L 01/25/22 05:50 Hgb 7.3 gm/dl (11.8-15.2) L 01/25/22 05:50 Hct 23.9 % (35.5-45.6) L D 01/25/22 05:50 MCV 86 fl (84-94) 01/25/22 05:50 MCH 26 pg (28-32) L 01/25/22 05:50 MCHC 31 % (32-34) L 01/25/22 05:50 RDW 23.4 % (13.2-15.2) H 01/25/22 05:50 Plt Count 102 K/mm3 (140-440) L 01/25/22 05:50 [place] % (Auto) 4.2 % (0.0-7.3) 01/17/22 07:06 Eos % (Auto) 1.0 % (0.0-4.3) 01/17/22 07:06 [place] # (Auto) 0.5 K/mm3 (0.0-0.8) 01/17/22 07:06 Eos # (Auto) 0.1 K/mm3 (0.0-0.4) 01/17/22 07:06 Baso # (Auto) 0.1 K/mm3 (0.0-0.1) 01/17/22 07:06 Add Manual Diff Complete 01/25/22 05:50 Total Counted 100 01/25/22 05:50 Seg Neutrophils % Configuration Management Specialist 01/17/22 07:06 Seg Neuts % (Manual) 94.0 % (40.0-70.0) H 01/25/22 05:50 Band Neutrophils % 1.0 % 01/25/22 05:50 Lymphocytes % (Manual) 3.0 % (13.4-35.0) L 01/25/22 05:50 Reactive Lymphs % (Man) 0 % 01/25/22 05:50 Monocytes % (Manual) 2.0 % (0.0-7.3) 01/25/22 05:50 Eosinophils % (Manual) 0 % (0.0-4.3) 01/25/22 05:50 Basophils % (Manual) 0 % (0.0-1.8) 01/25/22 05:50 Metamyelocytes % 0 % 01/25/22 05:50 Myelocytes % 0 % 01/25/22 05:50 Promyelocytes % 0 % 01/25/22 05:50 Blast Cells % 0 % 01/25/22 05:50 Nucleated RBC % Not Reportable 01/25/22 05:50 Seg Neutrophils # 11.3 K/mm3 (1.8-7.7) H 01/17/22 07:06 Seg Neutrophils # Man 14.9 K/mm3 (1.8-7.7) H 01/25/22 05:50 Band Neutrophils # 0.2 K/mm3 01/25/22 05:50 Lymphocytes # (Manual) 0.5 K/mm3 (1.2-5.4) L 01/25/22 05:50 Abs React Lymphs (Man) 0.0 K/mm3 01/25/22 05:50 Monocytes # (Manual) 0.3 K/mm3 (0.0-0.8) 01/25/22 05:50 Eosinophils # (Manual) 0.0 K/mm3 (0.0-0.4) 01/25/22 05:50 Basophils # (Manual) 0.0 K/mm3 (0.0-0.1) 01/25/22 05:50 Metamyelocytes # 0.0 K/mm3 01/25/22 05:50 Myelocytes # 0.0 K/mm3 01/25/22 05:50 Promyelocytes # 0.0 K/mm3 01/25/22 05:50 Blast Cells # 0.0 K/mm3 01/25/22 05:50 WBC Morphology Not Reportable 01/25/22 05:50 Hypersegmented Neuts Not Reportable 01/25/22 05:50 Hyposegmented Neuts Not Reportable 01/25/22 05:50 Hypogranular Neuts Not Reportable 01/25/22 05:50 Smudge Cells Not Reportable 01/25/22 05:50 Toxic Granulation 2+ 01/25/22 05:50 Toxic Vacuolation Not Reportable 01/25/22 05:50 Dohle Bodies Not Reportable 01/25/22 05:50 Pelger-Huet Anomaly Not Reportable 01/25/22 05:50 Sarah Rods Not Reportable 01/25/22 05:50 Platelet Estimate Consistent w auto 01/25/22 05:50 Clumped Platelets Not Reportable 01/25/22 05:50 Plt Clumps, EDTA Not Reportable 01/25/22 05:50 Large Platelets Not Reportable 01/25/22 05:50 Giant Platelets Not Reportable 01/25/22 05:50 Platelet Satelliting Not Reportable 01/25/22 05:50 Plt Morphology Comment Not Reportable 01/25/22 05:50 RBC Morphology Not Reportable 01/25/22 05:50 Dimorphic RBCs Not Reportable 01/25/22 05:50 Polychromasia Not Reportable 01/25/22 05:50 Hypochromasia Not Reportable 01/25/22 05:50 Poikilocytosis Not Reportable 01/25/22 05:50 Anisocytosis 2+ 01/25/22 05:50 Microcytosis Not Reportable 01/25/22 05:50 Macrocytosis Not Reportable 01/25/22 05:50 Spherocytes Not Reportable 01/25/22 05:50 Pappenheimer Bodies Not Reportable 01/25/22 05:50 Sickle Cells Not Reportable 01/25/22 05:50 Target Cells Not Reportable 01/25/22 05:50 Tear Drop Cells Not Reportable 01/25/22 05:50 Ovalocytes Not Reportable 01/25/22 05:50 Helmet Cells Not Reportable 01/25/22 05:50 [place] Bodies Not Reportable 01/25/22 05:50 [place] Rings Not Reportable 01/25/22 05:50 [place] Cells Not Reportable 01/25/22 05:50 Bite Cells Not Reportable 01/25/22 05:50 Crenated Cell Not Reportable 01/25/22 05:50 Elliptocytes Not Reportable 01/25/22 05:50 Acanthocytes (Spur) Not Reportable 01/25/22 05:50 Rouleaux Not Reportable 01/25/22 05:50 Hemoglobin C Crystals Not Reportable 01/25/22 05:50 Schistocytes Not Reportable 01/25/22 05:50 Malaria parasites Not Reportable 01/25/22 05:50 Jigar Bodies Not Reportable 01/25/22 05:50 Hem Pathologist Commnt No 01/25/22 05:50 D-Dimer 940.59 ng/mlDDU (0-234) H 01/20/22 04:39 Heparin Anti-Xa, Unfract Negative (Negative) 01/13/22 04:56 Sodium 140 mmol/L (137-145) 01/25/22 05:50 Potassium 5.1 mmol/L (3.6-5.0) H 01/25/22 05:50 Chloride 109.6 mmol/L (98-107) H 01/25/22 05:50 Carbon Dioxide 23 mmol/L (22-30) 01/25/22 05:50 Anion Gap 13 mmol/L 01/25/22 05:50 BUN 68 mg/dL (9-20) H 01/25/22 05:50 Creatinine 1.8 mg/dL (0.8-1.3) H 01/25/22 05:50 Estimated GFR 38 ml/min 01/25/22 05:50 BUN/Creatinine Ratio 38 % 01/25/22 05:50 Glucose 161 mg/dL (75-100) H 01/25/22 05:50 POC Glucose 147 mg/dL (70-105) H 01/25/22 06:02 Lactic Acid 1.70 mmol/L (0.7-2.0) 01/13/22 04:56 Calcium 8.0 mg/dL (8.4-10.2) L 01/25/22 05:50 Phosphorus 3.60 mg/dL (2.5-4.5) 01/17/22 07:06 Magnesium 2.30 mg/dL (1.7-2.3) 01/25/22 05:50 Ferritin 560.7 ng/mL (30.0-300.0) H 01/20/22 04:39 Total Bilirubin 0.60 mg/dL (0.1-1.2) 01/11/22 03:08 Direct Bilirubin 0.3 mg/dL (0-0.2) H 01/11/22 03:08 Indirect Bilirubin 0.3 mg/dL 01/11/22 03:08 AST 45 units/L (5-40) H 01/11/22 03:08 ALT 29 units/L (7-56) 01/11/22 03:08 Alkaline Phosphatase 180 units/L (35-129) H 01/11/22 03:08 Lactate Dehydrogenase 334 units/L (91-180) H 01/20/22 04:39 Total Creatine Kinase 15 units/L (55-170) L 01/20/22 04:39 C-Reactive Protein 3.10 mg/dL (0.00-1.30) H 01/22/22 06:10 Serum Total Protein 5.4 g/dL (6.1-8.1) L 01/15/22 08:41 Total Protein 7.3 g/dL (6.3-8.2) 01/11/22 03:08 Albumin 2.0 g/dL (3.8-4.8) L 01/15/22 08:41 Albumin/Globulin Ratio 0.5 % 01/11/22 03:08 Qwogm-0-Ltrilsvdy 0.5 g/dL (0.2-0.3) H 01/15/22 08:41 Npgrx-6-Krxkpsyje 0.9 g/dL (0.5-0.9) 01/15/22 08:41 Beta Globulins 0.6 g/dL (0.2-0.5) H 01/15/22 08:41 Gamma Globulins 1.2 g/dL (0.8-1.7) 01/15/22 08:41 Abnorm Protein Band 1 see below 01/15/22 08:41 PEP Interpretation see below H 01/15/22 08:41 Serotonin Release Assay See scanned result 01/13/22 04:56 Procalcitonin 0.74 ng/mL (<0.15) 01/20/22 04:39 Urine Color Claudia (Yellow) 01/12/22 11:44 Urine Turbidity Cloudy (Clear) 01/12/22 11:44 Urine pH 5.0 (5.0-7.0) 01/12/22 11:44 Ur Specific [place] 1.030 (1.003-1.030) 01/12/22 11:44 Urine Protein 30 mg/dl mg/dL (Negative) 01/12/22 11:44 Urine Glucose (UA) Negative mg/dL (Negative) 01/12/22 11:44 Urine Ketones Negative mg/dL (Negative) 01/12/22 11:44 Urine Blood Moderate (Negative) A 01/12/22 11:44 Urine Nitrite Negative (Negative) 01/12/22 11:44 Ur Reducing Substances Not Reportable 01/12/22 11:44 Urine Bilirubin Negative (Negative) 01/12/22 11:44 Urine Ictotest Not Reportable 01/12/22 11:44 Urine Urobilinogen 0.0 mg/dL (<2.0) 01/12/22 11:44 Ur Leukocyte Esterase Trace (Negative) 01/12/22 11:44 Urine WBC (Auto) > 182.0 /HPF (0.0-6.0) H 01/12/22 11:44 Urine RBC (Auto) 12.0 /HPF (0.0-6.0) 01/12/22 11:44 Urine Bacteria (Auto) 2+ /HPF (Negative) 01/12/22 11:44 Urine WBC Clumps 3+ /HPF 01/11/22 07:14 Urine Mucus Few /HPF 01/12/22 11:44 Urine Total Volume 1700 ml 01/20/22 17:30 Urine Creatinine 61.8 mg/dL (0.1-20.0) H 01/20/22 17:30 Height (in) 70.0 inches 01/20/22 17:30 Weight (lb) 124.7 lbs 01/20/22 17:30 Creatinine Clearance 28 01/20/22 17:30 Urine Sodium 58 mmol/L 01/12/22 11:44 Nasal Screen MRSA (PCR) Positive (Negative) 01/12/22 Unknown Random Vancomycin 10.3 ug/mL (0-40.0) 01/18/22 07:50 KAMILLA Screen Negative (Negative) 01/14/22 05:47 Proteinase 3 (PR3) Ab <1.0 AI (<1.0) 01/13/22 18:40 Myeloperoxidase Ab <1.0 AI (<1.0) 01/13/22 18:40 Heparin-induced Plt Ab Positive (Negative) H 01/13/22 04:56 UF Heparin High Dose 3 % Release 01/13/22 04:56 BRYCE UFH Low Dose 0.1 4 % Release 01/13/22 04:56 BRYCE UFH Low Dose 0.5 5 % Release 01/13/22 04:56 Complement C3 203 mg/dL (82-185) H 01/15/22 08:41 Complement C4 52 mg/dL (15-53) 01/15/22 08:41 C. difficile Tox (PCR) Negative (Negative) 01/15/22 11:32 Coronavirus (PCR) Positive (Negative) A 01/15/22 10:30 SARS-CoV-2 (PCR) Negative (Negative) 01/22/22 10:30 Hepatitis A IgM Ab Non-reactive (NonReactive) 01/13/22 18:40 Hep Bs Antigen Non-reactive (Negative) 01/13/22 18:40 Hep B Core IgM Ab Non-reactive (NonReactive) 01/13/22 18:40 Hepatitis C Antibody Non-reactive (NonReactive) 01/13/22 18:40 Miscellaneous Test Flexitest 1 H 01/13/22 18:40 Blood Type A POSITIVE 01/24/22 06:50 Antibody Screen Negative 01/24/22 06:50 Val[place]/IV: Voiding Method Indwelling Catheter Active Medications - Current Medications Current Medications: Generic Name Dose Route Start Last Admin Trade Name Freq PRN Reason Stop Dose Admin Acetaminophen 650 mg 01/11/22 05:40 01/19/22 23:03 Acetaminophen 325 Mg Tab PO 650 mg Q4H PRN Administration Pain MILD(1-3)/Fever >100.5/ROGERS Albuterol 2.5 mg 01/11/22 05:40 Albuterol 2.5 Mg/3 Ml Nebu IH Q3HRT PRN Shortness Of Breath Lipase/Protease/Amylase 1 each 01/17/22 16:03 Lipase 10,500/Protease 25,000/Amylase 43,750 (Units) Dr Mariee FEEDTUBE PRN PRN For Clogged Feeding Tube Ascorbic Acid 1,000 mg 01/19/22 22:00 01/24/22 22:08 Ascorbic Acid 500 Mg Tab PO 1,000 mg BID ALEXSANDRA Administration Aspirin 81 mg 01/13/22 11:00 01/24/22 09:16 Aspirin 81 Mg Tab Chew FEEDTUBE 81 mg QDAY ALEXSANDRA Administration Atorvastatin Calcium 80 mg 01/11/22 22:00 01/24/22 22:09 Atorvastatin 40 Mg Tab PO 80 mg QHS ALEXSANDRA Administration Cholecalciferol 5,000 unit 01/20/22 10:00 01/24/22 09:16 Cholecalciferol (Vit D3) 5,000 Unit Tab PO 5,000 unit DAILY ALEXSANDRA Administration Dextrose 50 ml 01/11/22 05:40 Dextrose 50% In Water (25gm) 50 Ml Syringe IV Q30MIN PRN Hypoglycemia Protocol Famotidine 10 mg 01/13/22 11:00 01/24/22 22:09 Famotidine 10 Mg Tab FEEDTUBE 10 mg BID ALEXSANDRA Administration Hydralazine HCl 10 mg 01/11/22 05:54 Hydralazine 20 Mg/1 Ml Inj IV Q6H PRN Blood Pressure Cefepime HCl 1 gm in 100 mls @ 200 mls/hr 01/13/22 18:00 01/24/22 17:33 Cefepime/Ns 1 Gm/100 Ml IV 200 mls/hr QPM ALEXSANDRA Administration Protocol Sodium Chloride 100 mls @ 999 mls/hr 01/13/22 18:00 Nacl 0.9% IV ASHLEY PRN Hypotension Daptomycin 300 mg/ Sodium 100 mls @ 200 mls/hr 01/19/22 12:00 01/23/22 18:21 Chloride IV 200 mls/hr Q48H ALEXSANDRA Administration Protocol Sodium Chloride 1,000 mls @ 125 mls/hr 01/20/22 15:00 01/25/22 02:08 Nacl 0.45% 1000 Ml IV 125 mls/hr DIRECT ALEXSANDRA Administration Insulin Glargine 15 units 01/18/22 22:00 01/24/22 22:11 Insulin Glargine 100 Units/Ml SUB-Q 15 units HS ALEXSANDRA Administration Insulin Human Lispro 0 unit 01/11/22 06:00 01/25/22 06:05 Insulin Lispro 100 Unit/Ml SUB-Q Not Given Q6HR [facility] Protocol Insulin Human Lispro 5 unit 01/25/22 07:30 Insulin Lispro 100 Unit/Ml SUB-Q [facility] Midodrine 10 mg 01/12/22 09:03 01/24/22 17:33 Midodrine 10 Mg Tab PO 10 mg TID@0800,1200,1600 ALEXSANDRA Administration Morphine Sulfate 2 mg 01/24/22 17:53 01/25/22 02:40 Morphine 2 Mg/1 Ml Inj IV 2 mg Q6H PRN Administration Pain, Moderate (4-6) Ondansetron HCl 4 mg 01/11/22 05:40 Ondansetron 4 Mg/2 Ml Inj IV Q8H PRN Nausea And Vomiting Oxycodone/Acetaminophen 1 tab 01/24/22 17:52 01/24/22 18:03 Oxycodone /Acetaminophen 5-325mg Tab PO 1 tab Q6H PRN Administration Pain, Moderate (4-6) Potassium Chloride 30 meq 01/18/22 10:00 01/24/22 09:16 Potassium Chloride Er 10 Meq Tab PO 30 meq QDAY ALEXSANDRA Administration Prazosin HCl 5 mg 01/15/22 22:00 01/24/22 22:14 Prazosin 5 Mg Cap PO 5 mg Q12HR ALEXSANDRA Administration Simple Syrup 15 ml 01/17/22 16:03 Simple Syrup 15 Ml FEEDTUBE PRN PRN Hypoglycemia Simple Syrup 30 ml 01/17/22 16:03 Simple Syrup 15 Ml FEEDTUBE PRN PRN Hypoglycemia Sodium Bicarbonate 325 mg 01/17/22 16:03 Sodium Bicarbonate 325 Mg Tab FEEDTUBE PRN PRN For Clogged Feeding Tube Sodium Chloride 10 ml 01/11/22 10:00 01/24/22 22:09 Sodium Chloride 0.9% 10 Ml Flush Syringe IV 10 ml BID ALEXSANDRA Administration Sodium Chloride 10 ml 01/11/22 05:40 Sodium Chloride 0.9% 10 Ml Flush Syringe IV PRN PRN LINE FLUSH Sodium Hypochlorite 1 applic 01/14/22 10:00 01/24/22 22:12 Sodium Hypochlorite, Dakin's 1/2 Strength (0.25%) 473 Ml Topical Soln TP 1 applicatio BID ALEXSANDRA Administration Zinc Sulfate 220 mg 01/19/22 22:00 01/24/22 22:09 Zinc Sulfate 220 Mg Cap PO 220 mg BID ALEXSANDRA Administration Nutrition/Malnutrition Assess - Dietary Evaluation Nutrition/Malnutrition Findings: Nutrition Notes Start: 01/12/22 13:45 Freq: Status: Active Protocol: Document 01/21/22 16:43 JARON (Rec: 01/21/22 17:02 JARON [id number]) Nutrition Notes Initial or Follow up Brief Note Current Diagnosis Acute Kidney Injury,CKD(stage I-IV),Decubitus(Pressure Ulcer ),Diabetes,Sepsis,Hypertension ,Stroke Other Pertinent Diagnosis CHF, Metabolic Encephalopathy, COVID-19, SIRS. Current Diet TF-Glucerna 1.2 Nicolas @ 75 ml/hr (since D 01/19). Height 5 ft 10 in Weight 56.69 kg Boaz Body Weight (kg) 75.45 BMI 17.9 Weight change and time frame No body weight change reported in 10 days Weight Status Underweight Subjective/Other Information RD consult for routine F/U on TF tolerance/continuation. TF continues as prescribed, no reports on tolerance available at the time, will assess at F/U. Pt is on Room Air, O2 saturation @ 100%, according to Physical Assessment History notes. Percent of energy/protein needs met: Prescribed TF-Glucerna 1.2 Nicolas @ 75 ml/hr provides for energy/protein needs (2,160 Kcal/108 g) during LOS, 95% Kcal; 100% AA. #2 Nutrition Diagnosis Malnutrition Diagnosis Progress(for reassessment Continues documentation) #1 Nutrition Diagnosis Swallowing difficulty Diagnosis Progress(for reassessment Continues documentation) Is patient on ventilator? No Is Patient Ambulatory and/or Out of Bed No REE-([facility]-confined to bed) 1635.336 Kcal/Kg value to use for calculation 40 Approximate Energy Requirements Using 2268 kcal/Kg Calculation Used for Recommendations Kcal/kg Additional Notes Protein: 1.5-2 g/Kg IBW; 85- 113 g/day. Fluids: 1 ml/Kcal, or as per MD. Nutrition Intervention Nutrition Support: Continue TF-Glucerna 1.2 Nicolas @ 75 ml/hr. Flush: 120 ml water Q 4 hr, or as per MD. Kcal 2,160 Protein (gm) 108 Carbohydrates (gm) 206 Fat (gm) 108 Fluid (mL) 1,449 Fiber (gm) 29 % RDI: 95% Kcal; 100% AA. Goal #1 Provide at least 75% of energy /protein needs through Enteral Feeding during LOS. Follow-Up By: 01/28/22 Additional Comments Continue monitoring TF tolerance and BM.
[2022-01-25] MEDS ORDERED: SODIUM CHLORIDE 0.9% 500 ML 500 ML IV NR (08:34)
[2022-01-25] MEDS: ASPIRIN 81 MG TAB CHEW FEEDTUBE SCH (09:12)
[2022-01-25] MEDS: PRAZOSIN 5 MG CAP PO SCH ×2 (09:12→22:15)
[2022-01-25] MEDS: MIDODRINE 10 MG TAB PO SCH ×3 (09:13→18:09)
[2022-01-25] MEDS: CHOLECALCIFEROL (VIT D3) 5,000 UNIT TAB PO SCH (09:13)
[2022-01-25] MEDS: ASCORBIC ACID 500 MG TAB PO SCH ×2 (09:13→22:10)
[2022-01-25] MEDS: ZINC SULFATE 220 MG CAP PO SCH ×2 (09:14→22:10)
[2022-01-25] MEDS: SODIUM HYPOCHLORITE, DAKIN'S 1/2 STRENGTH (0.25%) 473 ML TOPICAL SOLN TP SCH ×2 (09:14→22:16)
[2022-01-25] MEDS: POTASSIUM CHLORIDE ER 10 MEQ TAB PO SCH (09:14)
[2022-01-25] MEDS: FAMOTIDINE 10 MG TAB FEEDTUBE SCH ×2 (09:14→22:10)
--- NOTE | 2022-01-25 09:45 | Progress Note ---
Assessment and Plan Assessment: Acute metabolic encephalopathy MAURI (acute kidney injury) Hypertension Congestive heart failure Diabetes Hypernatremia SIRS (systemic inflammatory response syndrome COVID-positive Hyperkalemia Plan: Renal labs reviewed. Serum creatinine was 1.8 today, prior was 1.9. Hemodialysis has been discontinued S/P vasc cath removal on 01/24/22 Potassium 5.1 today, will stop K-Dur Anemia-transfuse as needed Renal US was negative for obstruction Renally dose medications Strict I&O's daily Obtain daily weights Continue to monitor renal function Plan of care reviewed by Dr. Nava Subjective Date of service: 01/25/22 Principal diagnosis: MAURI Interval history: Patient now with active COVID-19 positive infection, labs and chart reviewed Objective - Vital Signs Vital signs: Vital Signs - 12hr 01/24/22 01/24/22 01/25/22 22:00 22:14 00:00 Temperature Pulse Rate 85 83 Respiratory 17 Rate Respiratory 17 Rate [ Generalized] Blood Pressure 125/56 O2 Sat by Pulse 100 Oximetry 01/25/22 01/25/22 01/25/22 02:40 03:10 05:06 Temperature 97.6 F Pulse Rate 88 Respiratory 17 17 18 Rate Respiratory Rate [ Generalized] Blood Pressure 109/54 O2 Sat by Pulse 98 Oximetry - Lab 01/25/22 05:50 01/25/22 05:50 Most recent lab results Calcium 8.0 mg/dL (8.4-10.2) L 01/25/22 05:50 Phosphorus 3.60 mg/dL (2.5-4.5) 01/17/22 07:06 Magnesium 2.30 mg/dL (1.7-2.3) 01/25/22 05:50 Urine Creatinine 61.8 mg/dL (0.1-20.0) H 01/20/22 17:30 Urine Sodium 58 mmol/L 01/12/22 11:44 Medications & Allergies - Medications Allergies/Adverse Reactions: Allergies heparin Allergy (Verified 01/19/22 10:43) Unknown Home Medications: Home Medications Medication Instructions Recorded Confirmed Last Taken Type cephALEXin [Keflex] 500 mg PO Q6HR 7 Days #28 capsule 12/09/21 01/14/22 Unknown Rx Aspirin [[place] Aspirin EC] 81 mg PO QDAY 12/14/21 01/14/22 Unknown History Atorvastatin [Lipitor] 80 mg PO QHS 12/14/21 01/14/22 Unknown History Dapagliflozin Propanediol [Farxiga] 10 mg PO QDAY 12/14/21 01/14/22 Unknown History Insulin Detemir [Levemir VIAL] 25 unit SQ QHS 12/14/21 01/14/22 Unknown History Insulin Lispro [Admelog] 100 unit SQ ACHS 12/14/21 01/14/22 Unknown History Tamsulosin [Flomax] 0.4 mg PO QDAY 12/14/21 01/14/22 Unknown History carvediloL [Coreg] 3.125 mg PO BID 12/14/21 01/14/22 Unknown History Clopidogrel [Plavix] 75 mg PO QDAY tablet 12/27/21 01/14/22 Unknown Rx Sertraline [Zoloft] 100 mg PO QDAY #30 12/27/21 01/14/22 Unknown Rx Simple Syrup 15 ml FEEDTUBE PRN PRN oral.liqd 12/27/21 01/14/22 Unknown Rx Simple Syrup 30 ml FEEDTUBE PRN PRN oral.liqd 12/27/21 01/14/22 Unknown Rx Sodium Bicarbonate 325 mg FEEDTUBE PRN PRN #30 tablet 12/27/21 01/14/22 Unknown Rx Torsemide [Demadex] 20 mg PO QDAY #30 12/27/21 01/14/22 Unknown Rx Active Medications: Generic Name Dose Route Start Last Admin Trade Name Freq PRN Reason Stop Dose Admin Acetaminophen 650 mg 01/11/22 05:40 01/19/22 23:03 Acetaminophen 325 Mg Tab PO 650 mg Q4H PRN Administration Pain MILD(1-3)/Fever >100.5/ROGERS Albuterol 2.5 mg 01/11/22 05:40 Albuterol 2.5 Mg/3 Ml Nebu IH Q3HRT PRN Shortness Of Breath Lipase/Protease/Amylase 1 each 01/17/22 16:03 Lipase 10,500/Protease 25,000/Amylase 43,750 (Units) Dr Mariee FEEDTUBE PRN PRN For Clogged Feeding Tube Ascorbic Acid 1,000 mg 01/19/22 22:00 01/25/22 09:13 Ascorbic Acid 500 Mg Tab PO 1,000 mg BID ALEXSANDRA Administration Aspirin 81 mg 01/13/22 11:00 01/25/22 09:12 Aspirin 81 Mg Tab Chew FEEDTUBE 81 mg QDAY ALEXSANDRA Administration Atorvastatin Calcium 80 mg 01/11/22 22:00 01/24/22 22:09 Atorvastatin 40 Mg Tab PO 80 mg QHS ALEXSANDRA Administration Cholecalciferol 5,000 unit 01/20/22 10:00 01/25/22 09:13 Cholecalciferol (Vit D3) 5,000 Unit Tab PO 5,000 unit DAILY ALEXSANDRA Administration Dextrose 50 ml 01/11/22 05:40 Dextrose 50% In Water (25gm) 50 Ml Syringe IV Q30MIN PRN Hypoglycemia Protocol Famotidine 10 mg 01/13/22 11:00 01/25/22 09:14 Famotidine 10 Mg Tab FEEDTUBE 10 mg BID ALEXSANDRA Administration Hydralazine HCl 10 mg 01/11/22 05:54 Hydralazine 20 Mg/1 Ml Inj IV Q6H PRN Blood Pressure Cefepime HCl 1 gm in 100 mls @ 200 mls/hr 01/13/22 18:00 01/24/22 17:33 Cefepime/Ns 1 Gm/100 Ml IV 200 mls/hr QPM ALEXSANDRA Administration Protocol Sodium Chloride 100 mls @ 999 mls/hr 01/13/22 18:00 Nacl 0.9% IV ASHLEY PRN Hypotension Daptomycin 300 mg/ Sodium 100 mls @ 200 mls/hr 01/19/22 12:00 01/23/22 18:21 Chloride IV 200 mls/hr Q48H ALEXSANDRA Administration Protocol Sodium Chloride 1,000 mls @ 125 mls/hr 01/20/22 15:00 01/25/22 02:08 Nacl 0.45% 1000 Ml IV 125 mls/hr DIRECT ALEXSANDRA Administration Sodium Chloride 500 mls @ 0 mls/hr 01/25/22 08:34 Nacl 0.9% 500 Ml IV 01/25/22 18:00 ONCE NR As Directed Insulin Glargine 15 units 01/18/22 22:00 01/24/22 22:11 Insulin Glargine 100 Units/Ml SUB-Q 15 units HS ALEXSANDRA Administration Insulin Human Lispro 0 unit 01/11/22 06:00 01/25/22 06:05 Insulin Lispro 100 Unit/Ml SUB-Q Not Given Q6HR ALEXSANDRA Protocol Insulin Human Lispro 5 unit 01/25/22 07:30 Insulin Lispro 100 Unit/Ml SUB-Q AC ALEXSANDRA Midodrine 10 mg 01/12/22 09:03 01/25/22 09:13 Midodrine 10 Mg Tab PO 10 mg TID@0800,1200,1600 ALEXSANDRA Administration Morphine Sulfate 2 mg 01/24/22 17:53 01/25/22 02:40 Morphine 2 Mg/1 Ml Inj IV 2 mg Q6H PRN Administration Pain, Moderate (4-6) Ondansetron HCl 4 mg 01/11/22 05:40 Ondansetron 4 Mg/2 Ml Inj IV Q8H PRN Nausea And Vomiting Oxycodone/Acetaminophen 1 tab 01/24/22 17:52 01/24/22 18:03 Oxycodone /Acetaminophen 5-325mg Tab PO 1 tab Q6H PRN Administration Pain, Moderate (4-6) Potassium Chloride 30 meq 01/18/22 10:00 01/25/22 09:14 Potassium Chloride Er 10 Meq Tab PO 30 meq QDAY ALEXSANDRA Administration Prazosin HCl 5 mg 01/15/22 22:00 01/25/22 09:12 Prazosin 5 Mg Cap PO 5 mg Q12HR ALEXSANDRA Administration Simple Syrup 15 ml 01/17/22 16:03 Simple Syrup 15 Ml FEEDTUBE PRN PRN Hypoglycemia Simple Syrup 30 ml 01/17/22 16:03 Simple Syrup 15 Ml FEEDTUBE PRN PRN Hypoglycemia Sodium Bicarbonate 325 mg 01/17/22 16:03 Sodium Bicarbonate 325 Mg Tab FEEDTUBE PRN PRN For Clogged Feeding Tube Sodium Chloride 10 ml 01/11/22 10:00 01/25/22 09:14 Sodium Chloride 0.9% 10 Ml Flush Syringe IV 10 ml BID ALEXSANDRA Administration Sodium Chloride 10 ml 01/11/22 05:40 Sodium Chloride 0.9% 10 Ml Flush Syringe IV PRN PRN LINE FLUSH Sodium Hypochlorite 1 applic 01/14/22 10:00 01/25/22 09:14 Sodium Hypochlorite, Dakin's 1/2 Strength (0.25%) 473 Ml Topical Soln TP 1 applicatio BID ALEXSANDRA Administration Zinc Sulfate 220 mg 01/19/22 22:00 01/25/22 09:14 Zinc Sulfate 220 Mg Cap PO 220 mg BID ALEXSANDRA Administration
[2022-01-25] MEDS: CEFEPIME/NS 1 GM/100 ML 1 GM/100 ML BAG IV SCH (18:10)
[2022-01-25] MEDS: ACETAMINOPHEN 325 MG TAB PO PRN (22:09)
[2022-01-25] MEDS: INSULIN GLARGINE 100 UNITS/ML SUB-Q SCH (22:16)
[2022-01-26] MEDS: FREE WATER PO SCH ×7 (02:13→23:38)
[2022-01-26 05:31] LABS: Hematocrit 24.8 % (35.5-45.6); Hemoglobin 7.8 gm/dl (11.8-15.2); Mean Corpuscular HGB Conc 31 % (32-34); Mean Corpuscular Volume 87 fl (84-94); Platelet Count 119 K/mm3 (140-440); Red Blood Count 2.87 M/mm3 (3.65-5.03)
[2022-01-26 05:37] LABS: Red Cell Distribution Width 22.9 % (13.2-15.2)
[2022-01-26] MEDS: INSULIN LISPRO 100 UNIT/ML SUB-Q SCH ×7 (06:13→18:00)
[2022-01-26] MEDS: SODIUM CHLORIDE 0.45% 1000 ML 1,000 ML IV SCH ×2 (06:19→23:48)
--- NOTE | 2022-01-26 08:14 | Progress Note ---
Assessment and Plan Patient with continued signs of tissue necrosis in the sacrum and right heel ulcers. Posterior right leg ulcer is clean with beginning of granulation tissue. Would continue to hold Plavix another 5 days as patient will need to return to the OR for further debridement. Also of consideration is a BK amputation after vascular evaluation and a sigmoid end colostomy diversion to help with the wound care and the sacrum. Right posterior leg and ankle wounds evaluated continued signs of necrosis. Salvage of the limb is unlikely. Vascular evaluation for distal peripheral patient has been requested and is pending. 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 There is also significant risk for fecal soilage because of the proximity to the anus. Consider diversion. Finally patient with purulent drainage from [place] catheter and [place] to be changed. Significant amount of air also present in the bladder. May need to ask urology to assist in evaluation for colovesicular fistula. Consider retrograde cystogram Subjective Date of service: 01/26/22 Narrative: Patient with continued signs of tissue necrosis in the sacrum and right heel ulcers. Posterior right leg ulcer is clean with beginning of granulation tissue. Would continue to hold Plavix another 5 days as patient will need to return to the OR for further debridement. Also of consideration is a BK amputation after vascular evaluation and a sigmoid end colostomy diversion to help with the wound care and the sacrum. Objective Vital Signs - 12hr 01/25/22 01/25/22 01/26/22 21:39 22:00 04:44 Temperature 99.4 F 97.9 F Pulse Rate 86 106 H Respiratory 18 18 Rate Blood Pressure 121/54 112/51 O2 Sat by Pulse 97 98 91 Oximetry - Labs 01/26/22 04:16 01/25/22 05:50
[2022-01-26] MEDS: MIDODRINE 10 MG TAB PO SCH ×3 (08:47→17:04)
[2022-01-26] MEDS: ASPIRIN 81 MG TAB CHEW FEEDTUBE SCH ×2 (08:47→12:22)
[2022-01-26] MEDS: ZINC SULFATE 220 MG CAP PO SCH ×3 (08:48→23:49)
[2022-01-26] MEDS: CHOLECALCIFEROL (VIT D3) 5,000 UNIT TAB PO SCH ×2 (08:48→12:23)
[2022-01-26] MEDS: ASCORBIC ACID 500 MG TAB PO SCH ×3 (08:48→23:48)
[2022-01-26] MEDS: PRAZOSIN 5 MG CAP PO SCH ×3 (08:48→23:52)
[2022-01-26] MEDS: FAMOTIDINE 10 MG TAB FEEDTUBE SCH ×3 (08:48→23:48)
[2022-01-26] MEDS: SODIUM HYPOCHLORITE, DAKIN'S 1/2 STRENGTH (0.25%) 473 ML TOPICAL SOLN TP SCH ×3 (08:49→23:38)
[2022-01-26 08:52] LABS: Basophils % (Manual) 0 % (0.0-1.8); Myelocytes # (Manual) 0.1 K/mm3; Platelet Estimate Consistent w Auto; Total Cells Counted 100
--- NOTE | 2022-01-26 10:42 | Progress Note ---
Assessment and Plan Assessment: Acute metabolic encephalopathy MAURI (acute kidney injury) Hypertension Congestive heart failure Diabetes Hypernatremia SIRS (systemic inflammatory response syndrome COVID-positive Hyperkalemia Plan: No new renal labs noted for today at present. Serum creatinine was 1.8 yes terday. Hemodialysis has been discontinued. S/P vasc cath removal on 01/24/22 Potassium was 5.1 yesterday, stopped K-Dur Anemia-transfuse as needed Renal US was negative for obstruction Renally dose medications Strict I&O's daily Obtain daily weights Continue to monitor renal function Plan of care reviewed by Dr. Nava Subjective Date of service: 01/26/22 Principal diagnosis: MUARI Interval history: Patient now with active COVID-19 positive infection, labs and chart reviewed Objective - Vital Signs Vital signs: Vital Signs - 12hr 01/26/22 01/26/22 04:44 08:58 Temperature 97.9 F Pulse Rate 106 H Respiratory 18 Rate Blood Pressure 112/51 O2 Sat by Pulse 91 96 Oximetry - Lab 01/26/22 04:16 01/26/22 09:39 Most recent lab results Calcium 8.0 mg/dL (8.4-10.2) L 01/26/22 09:39 Phosphorus 3.60 mg/dL (2.5-4.5) 01/17/22 07:06 Magnesium 2.30 mg/dL (1.7-2.3) 01/25/22 05:50 Urine Creatinine 61.8 mg/dL (0.1-20.0) H 01/20/22 17:30 Urine Sodium 58 mmol/L 01/12/22 11:44 Medications & Allergies - Medications Allergies/Adverse Reactions: Allergies heparin Allergy (Verified 01/19/22 10:43) Unknown Home Medications: Home Medications Medication Instructions Recorded Confirmed Last Taken Type cephALEXin [Keflex] 500 mg PO Q6HR 7 Days #28 capsule 12/09/21 01/14/22 Unknown Rx Aspirin [[place] Aspirin EC] 81 mg PO QDAY 12/14/21 01/14/22 Unknown History Atorvastatin [Lipitor] 80 mg PO QHS 12/14/21 01/14/22 Unknown History Dapagliflozin Propanediol [Farxiga] 10 mg PO QDAY 12/14/21 01/14/22 Unknown History Insulin Detemir [Levemir VIAL] 25 unit SQ QHS 12/14/21 01/14/22 Unknown History Insulin Lispro [Admelog] 100 unit SQ ACHS 12/14/21 01/14/22 Unknown History Tamsulosin [Flomax] 0.4 mg PO QDAY 12/14/21 01/14/22 Unknown History carvediloL [Coreg] 3.125 mg PO BID 12/14/21 01/14/22 Unknown History Clopidogrel [Plavix] 75 mg PO QDAY tablet 12/27/21 01/14/22 Unknown Rx Sertraline [Zoloft] 100 mg PO QDAY #30 12/27/21 01/14/22 Unknown Rx Simple Syrup 15 ml FEEDTUBE PRN PRN oral.liqd 12/27/21 01/14/22 Unknown Rx Simple Syrup 30 ml FEEDTUBE PRN PRN oral.liqd 12/27/21 01/14/22 Unknown Rx Sodium Bicarbonate 325 mg FEEDTUBE PRN PRN #30 tablet 12/27/21 01/14/22 Unknown Rx Torsemide [Demadex] 20 mg PO QDAY #30 12/27/21 01/14/22 Unknown Rx Active Medications: Generic Name Dose Route Start Last Admin Trade Name Freq PRN Reason Stop Dose Admin Acetaminophen 650 mg 01/11/22 05:40 01/25/22 22:09 Acetaminophen 325 Mg Tab PO 650 mg Q4H PRN Administration Pain MILD(1-3)/Fever >100.5/ROGERS Albuterol 2.5 mg 01/11/22 05:40 Albuterol 2.5 Mg/3 Ml Nebu IH Q3HRT PRN Shortness Of Breath Lipase/Protease/Amylase 1 each 01/17/22 16:03 Lipase 10,500/Protease 25,000/Amylase 43,750 (Units) Dr Mariee FEEDTUBE PRN PRN For Clogged Feeding Tube Ascorbic Acid 1,000 mg 01/19/22 22:00 01/26/22 08:48 Ascorbic Acid 500 Mg Tab PO 1,000 mg BID ALEXSANDRA Administration Aspirin 81 mg 01/13/22 11:00 01/26/22 08:47 Aspirin 81 Mg Tab Chew FEEDTUBE 81 mg QDAY ALEXSANDRA Administration Atorvastatin Calcium 80 mg 01/11/22 22:00 01/25/22 22:10 Atorvastatin 40 Mg Tab PO 80 mg QHS ALEXSANDRA Administration Cholecalciferol 5,000 unit 01/20/22 10:00 01/26/22 08:48 Cholecalciferol (Vit D3) 5,000 Unit Tab PO 5,000 unit DAILY ALEXSANDRA Administration Dextrose 50 ml 01/11/22 05:40 Dextrose 50% In Water (25gm) 50 Ml Syringe IV Q30MIN PRN Hypoglycemia Protocol Famotidine 10 mg 01/13/22 11:00 01/26/22 08:48 Famotidine 10 Mg Tab FEEDTUBE 10 mg BID ALEXSANDRA Administration Hydralazine HCl 10 mg 01/11/22 05:54 Hydralazine 20 Mg/1 Ml Inj IV Q6H PRN Blood Pressure Cefepime HCl 1 gm in 100 mls @ 200 mls/hr 01/13/22 18:00 01/25/22 21:01 Cefepime/Ns 1 Gm/100 Ml IV Infused QPM ALEXSANDRA Infusion Protocol Sodium Chloride 100 mls @ 999 mls/hr 01/13/22 18:00 Nacl 0.9% IV ASHLEY PRN Hypotension Daptomycin 300 mg/ Sodium 100 mls @ 200 mls/hr 01/19/22 12:00 01/26/22 06:07 Chloride IV Infused Q48H ALEXSANDRA Infusion Protocol Sodium Chloride 1,000 mls @ 125 mls/hr 01/20/22 15:00 01/26/22 06:19 Nacl 0.45% 1000 Ml IV 125 mls/hr DIRECT ALEXSANDRA Administration Insulin Glargine 15 units 01/18/22 22:00 01/25/22 22:16 Insulin Glargine 100 Units/Ml SUB-Q 15 units HS ALEXSANDRA Administration Insulin Human Lispro 0 unit 01/11/22 06:00 01/26/22 06:22 Insulin Lispro 100 Unit/Ml SUB-Q 4 unit Q6HR ALEXSANDRA Administration Protocol Insulin Human Lispro 5 unit 01/25/22 07:30 01/26/22 07:30 Insulin Lispro 100 Unit/Ml SUB-Q 5 unit AC ALEXSANDRA Administration Midodrine 10 mg 01/12/22 09:03 01/26/22 08:47 Midodrine 10 Mg Tab PO 10 mg TID@0800,1200,1600 ALEXSANDRA Administration Morphine Sulfate 2 mg 01/24/22 17:53 01/25/22 02:40 Morphine 2 Mg/1 Ml Inj IV 2 mg Q6H PRN Administration Pain, Moderate (4-6) Ondansetron HCl 4 mg 01/11/22 05:40 Ondansetron 4 Mg/2 Ml Inj IV Q8H PRN Nausea And Vomiting Oxycodone/Acetaminophen 1 tab 01/24/22 17:52 01/24/22 18:03 Oxycodone /Acetaminophen 5-325mg Tab PO 1 tab Q6H PRN Administration Pain, Moderate (4-6) Prazosin HCl 5 mg 01/15/22 22:00 01/26/22 08:48 Prazosin 5 Mg Cap PO 5 mg Q12HR ALEXSANDRA Administration Simple Syrup 15 ml 01/17/22 16:03 Simple Syrup 15 Ml FEEDTUBE PRN PRN Hypoglycemia Simple Syrup 30 ml 01/17/22 16:03 Simple Syrup 15 Ml FEEDTUBE PRN PRN Hypoglycemia Sodium Bicarbonate 325 mg 01/17/22 16:03 Sodium Bicarbonate 325 Mg Tab FEEDTUBE PRN PRN For Clogged Feeding Tube Sodium Chloride 10 ml 01/11/22 10:00 01/26/22 08:48 Sodium Chloride 0.9% 10 Ml Flush Syringe IV 10 ml BID ALEXSANDRA Administration Sodium Chloride 10 ml 01/11/22 05:40 Sodium Chloride 0.9% 10 Ml Flush Syringe IV PRN PRN LINE FLUSH Sodium Hypochlorite 1 applic 01/14/22 10:00 01/26/22 08:49 Sodium Hypochlorite, Dakin's 1/2 Strength (0.25%) 473 Ml Topical Soln TP 1 applicatio BID ALEXSANDRA Administration Zinc Sulfate 220 mg 01/19/22 22:00 01/26/22 08:48 Zinc Sulfate 220 Mg Cap PO 220 mg BID ALEXSANDRA Administration
[2022-01-26] MEDS: oxyCODONE /ACETAMINOPHEN 5-325MG TAB PO PRN (12:29)
[2022-01-26] MEDS: CEFEPIME/NS 2 GM/100 ML 2 GM/100 ML BAG IV SCH (17:04)
--- NOTE | 2022-01-26 17:25 | Progress Note ---
Assessment and Plan Assessment and plan: This is a 66-year-old male with known past medical history of hypertension, CVA, CHF, DM, dysphagia s/p PEGtube placement admitted for sepsis and MAURI Assessment and Plan; --surgical debridement of decubitus ulcer 01/23/2022 Patient tolerated the procedure well Surgery recommended to DC Plavix for 5 days Postop care, pain medications #Acute Metabolic Encephalopathy - Multifactorial: probably due to azotemia vs hypernatremia, vs infectious process - on Continous IVF hydration and empiric IV abx - Mentation with mild improvement, following simple commands - CT head no changes - Frequent reorientation - Avoid sedatives agents - Maintenance of sleep-wake cycle #Hypotension 2/ #Sepsis Vs hypovolemia #H/o Congestive Heart Failure(CHF) - Presented with tachycardia and hypotension - Patient remains hypotension this am, was febrile overnight and worsen leukocytosis this am - 12/14/21 Ech reviewed EF 45-50%, patient appear hypovolemic and dry - Continue IVF hydration per Nephro - Hold home antihypertensive agents - Midodrine added - cont. IVF, increased free water with TF for hypernatremia - Continue blood pressure monitor per protocol - Maintain MAP above 65 - Strict intake and output and daily weight #Acute Kidney Injury(MAURI) most likely ATN, placed on HD #Hypernatremia #Hyperkalemia, resolved # hypokalemia - probably due to hypotension/hypovelemia - Per record Scr. was 1.2 from last admit on 12/2021 - Scr. as high as 5.9, BUN 111 - s/p X1 dose of kayexalate, FWF for hypernatremia - Nephrology on consult, appreciated recommendation - no hydronephrosis on renal US - Strict intake and output - Avoid nephrotoxic medications; Renally dose medications - Vallecillo in place, initiated on HD 01/14 - replete electrolytes as needed #Severe Sepsis- multifactorial #Acute cystitis/UTI/VRE UTI # Positive Covid 19 #Infected Sacral Decubitis Ulcer/Proteus mirabilis #Leukocytosis #Lactic Acidosis - Presented with tachycardia and hypotension - Patient remains hypotension this am, was febrile overnight and worsen leukocytosis this am - Cultures pending, MRSA PCR positive - With multiple wounds, including malodourous, unstageable sacral decubitis. -Patient is on cefepime and daptomycin per ID - General Surgery consulted for possible debridement, wound care eval and treat - Wound care also consulted #Dysphagia s/p PEGtube Placement - Nutrition consulted - Initiated enteral nutrition #Thrombocytopenia - Presented with low plt - Plt count worsen this am - no s/s of any active bleeding - Will hold AC- heparin SubQ for now - H&H stable - HIT panel ordered #Type 2 Diabetes with Hyperglycemia - Continue BG and SSI Q6hrs - Lantus added qHs - While critically ill target blood glucose of 140-180 #GI/DVT Prophylaxis - PPI- Pepcid - SCDs to bilateral lower extremities while in bed Consults and recommendations noted and appreciated Closely monitor the patient and adjust management as needed Plan of care reviewed with patient and his nurse DC planning per case management/SNF placement COVID-19 PCR positive Rapid PCR test negative C. difficile negative Home O2 evaluation prior to discharge Hospital Course to Date: 01/12: Patient remains encephalopathic but more awake, following simple commands. Still hypotensive this am, probable sepsis. Febrile overnight with worsening leukocytosis this am. Cultures are pending. Continue IVF hydration and empiric IV abx. Multiple wounds, including unstageable sacral decub and MRSA PCR positive. IV Vanco was also initiated, renal dose per pharmacy. ID consulted. Midodrine also added TID. General surgery and wound care was also consulted for wounds eval and treatment. Worsening renal function with hypernatremia and hyperkalemia also noted, continue IVF hydration per nephro. Worsening thrombocytopenia also noted, no s/s of any active bleeding. H&H stable. Hold AC for now, HIT panel ordered. Lantus qhs added for hyperglycemia, continue BG and SSI Q6hrs 01/13: Patient tolerating tube feeds via PEG, unsure why the patient who had a PEG got so dehydrated at the facility, it appears he was tolerating some PO and as a result PEG was not in use at the facility. He is for debridement tomorrow, will continue free water flushes-150CC Q6 Considering he is on HD, will reassess and stop tomorrow if improved, Keep NPO after Midnight Continue abx therapy, Mental status improving some Discharge planning when stable 01/14/ Na level improving, Cr stable after HD x2, cont iv fluid, follow renal recommendation, pending surgical eval for decubitus ulcer 01/15: Plan to hold hemodialysis today, creatinine IVF/stable. Status post bedside debridement of the decubitus ulcer by general surgery. Patient need deep debridement which is planned for tomorrow. N.p.o. after midnight. Continue to follow BMP 01/16: Positive for COVID-19, moved to COVID floor. We will continue to follow inflammatory markers. cancelled deep debridement at the protocols today. We wi ll continue to follow. Not a candidate for remdesivir due to renal failure, oxygen requirement has not changed, will hold dexamethasone. Continue to follow 01/17: BP remains very soft today, will initiate IV fluid, continue to monitor clinically. Monitor renal function and inflammatory markers. add long acting insulin for hyperglycemia 01/18: K 2.8 today, cont to replete, ordered CT head worsening encephalopathy, cont restrain. Patient remians confused, follow inflammatory markers. follow BMP 01/19: patient on RA, remains confused. Na 150 today, changed iv fluid to D5w and increased free water with TF. follow inflammatory markers. D-dimer >1000, will change heparin to eliquis 2.[address] head w/o any changes 01/21/22; severe sepsis currently patient is on cefepime and daptomycin per ID Sacral decubitus ulcer, surgery following, awaiting debridement 7 days after COVID is positive for OR protocols 01/22/22 possible decubitus ulcer debridement tomorrow per surgery Patient is n.p.o. status from midnight 01/23; patient is scheduled for surgical debridement of decubitus ulcers 01/24; status post surgical debridement of decubitus ulcer, Plavix held for 5 days per surgeon Continue postop care 01/25 patient's hemoglobin dropped to 7.3, transfuse 1 unit PRBC Continue postop care, vital signs noted 01/26; Hb increased to 7.8, continue current management Patient VRE UTI, cefepime and daptomycin History Interval history: I have seen and examined the patient at the bedside Patient's chart and medications reviewed COVID-positive patient s/p debridement both sacral and heel Patient received 1 unit PRBC yesterday Vital signs noted Hospitalist Physical - Constitutional Vitals: Temp Pulse Resp BP Pulse Ox 97 F L 102 H 20 120/59 100 01/26/22 12:45 01/26/22 12:45 01/26/22 12:45 01/26/22 12:45 01/26/22 12:45 General appearance: Present: no acute distress, cachectic, other (Responding to simple questions appropriately) - EENT Eyes: Present: PERRL, EOM intact - Neck Neck: Present: supple, normal ROM - Respiratory Respiratory effort: normal Respiratory: bilateral: diminished, negative: rales, rhonchi, wheezing - Cardiovascular Rhythm: regular Heart Sounds: Present: S1 & S2 - Extremities Extremities: no ischemia, No edema, abnormal (Nursing and case) - Abdominal General gastrointestinal: soft, non-tender, non-distended, normal bowel sounds - Integumentary Integumentary: Present: clear, warm - Psychiatric Psychiatric: appropriate mood/affect, cooperative - Neurologic Neurologic: moves all extremities Results - Labs CBC & Chem 7: 01/26/22 04:16 01/26/22 09:39 Labs: Laboratory Last Values WBC 13.8 K/mm3 (4.5-11.0) H 01/26/22 04:16 RBC 2.87 M/mm3 (3.65-5.03) L 01/26/22 04:16 Hgb 7.8 gm/dl (11.8-15.2) L 01/26/22 04:16 Hct 24.8 % (35.5-45.6) L 01/26/22 04:16 MCV 87 fl (84-94) 01/26/22 04:16 MCH 27 pg (28-32) L 01/26/22 04:16 MCHC 31 % (32-34) L 01/26/22 04:16 RDW 22.9 % (13.2-15.2) H 01/26/22 04:16 Plt Count 119 K/mm3 (140-440) L 01/26/22 04:16 [place] % (Auto) 4.2 % (0.0-7.3) 01/17/22 07:06 Eos % (Auto) 1.0 % (0.0-4.3) 01/17/22 07:06 [place] # (Auto) 0.5 K/mm3 (0.0-0.8) 01/17/22 07:06 Eos # (Auto) 0.1 K/mm3 (0.0-0.4) 01/17/22 07:06 Baso # (Auto) 0.1 K/mm3 (0.0-0.1) 01/17/22 07:06 Add Manual Diff Complete 01/26/22 04:16 Total Counted 100 01/26/22 04:16 Seg Neutrophils % Machine Burrer 01/17/22 07:06 Seg Neuts % (Manual) 90.0 % (40.0-70.0) H 01/26/22 04:16 Band Neutrophils % 0 % 01/26/22 04:16 Lymphocytes % (Manual) 5.0 % (13.4-35.0) L 01/26/22 04:16 Reactive Lymphs % (Man) 0 % 01/26/22 04:16 Monocytes % (Manual) 3.0 % (0.0-7.3) 01/26/22 04:16 Eosinophils % (Manual) 1.0 % (0.0-4.3) 01/26/22 04:16 Basophils % (Manual) 0 % (0.0-1.8) 01/26/22 04:16 Metamyelocytes % 0 % 01/26/22 04:16 Myelocytes % 1.0 % 01/26/22 04:16 Promyelocytes % 0 % 01/26/22 04:16 Blast Cells % 0 % 01/26/22 04:16 Nucleated RBC % Not Reportable 01/26/22 04:16 Seg Neutrophils # 11.3 K/mm3 (1.8-7.7) H 01/17/22 07:06 Seg Neutrophils # Man 12.4 K/mm3 (1.8-7.7) H 01/26/22 04:16 Band Neutrophils # 0.0 K/mm3 01/26/22 04:16 Lymphocytes # (Manual) 0.7 K/mm3 (1.2-5.4) L 01/26/22 04:16 Abs React Lymphs (Man) 0.0 K/mm3 01/26/22 04:16 Monocytes # (Manual) 0.4 K/mm3 (0.0-0.8) 01/26/22 04:16 Eosinophils # (Manual) 0.1 K/mm3 (0.0-0.4) 01/26/22 04:16 Basophils # (Manual) 0.0 K/mm3 (0.0-0.1) 01/26/22 04:16 Metamyelocytes # 0.0 K/mm3 01/26/22 04:16 Myelocytes # 0.1 K/mm3 01/26/22 04:16 Promyelocytes # 0.0 K/mm3 01/26/22 04:16 Blast Cells # 0.0 K/mm3 01/26/22 04:16 WBC Morphology Not Reportable 01/26/22 04:16 Hypersegmented Neuts Not Reportable 01/26/22 04:16 Hyposegmented Neuts Not Reportable 01/26/22 04:16 Hypogranular Neuts Not Reportable 01/26/22 04:16 Smudge Cells Not Reportable 01/26/22 04:16 Toxic Granulation Not Reportable 01/26/22 04:16 Toxic Vacuolation Not Reportable 01/26/22 04:16 Dohle Bodies Not Reportable 01/26/22 04:16 Pelger-Huet Anomaly Not Reportable 01/26/22 04:16 Sarah Rods Not Reportable 01/26/22 04:16 Platelet Estimate Consistent w auto 01/26/22 04:16 Clumped Platelets Not Reportable 01/26/22 04:16 Plt Clumps, EDTA Not Reportable 01/26/22 04:16 Large Platelets Not Reportable 01/26/22 04:16 Giant Platelets Not Reportable 01/26/22 04:16 Platelet Satelliting Not Reportable 01/26/22 04:16 Plt Morphology Comment Not Reportable 01/26/22 04:16 RBC Morphology Not Reportable 01/26/22 04:16 Dimorphic RBCs Not Reportable 01/26/22 04:16 Polychromasia Not Reportable 01/26/22 04:16 Hypochromasia Not Reportable 01/26/22 04:16 Poikilocytosis Not Reportable 01/26/22 04:16 Anisocytosis Not Reportable 01/26/22 04:16 Microcytosis Not Reportable 01/26/22 04:16 Macrocytosis Not Reportable 01/26/22 04:16 Spherocytes Not Reportable 01/26/22 04:16 Pappenheimer Bodies Not Reportable 01/26/22 04:16 Sickle Cells Not Reportable 01/26/22 04:16 Target Cells Not Reportable 01/26/22 04:16 Tear Drop Cells Not Reportable 01/26/22 04:16 Ovalocytes Not Reportable 01/26/22 04:16 Helmet Cells Not Reportable 01/26/22 04:16 [place] Bodies Not Reportable 01/26/22 04:16 Brewer Rings Not Reportable 01/26/22 04:16 [place] Cells Not Reportable 01/26/22 04:16 Bite Cells Not Reportable 01/26/22 04:16 Crenated Cell Not Reportable 01/26/22 04:16 Elliptocytes Not Reportable 01/26/22 04:16 Acanthocytes (Spur) Not Reportable 01/26/22 04:16 Rouleaux Not Reportable 01/26/22 04:16 Hemoglobin C Crystals Not Reportable 01/26/22 04:16 Schistocytes Not Reportable 01/26/22 04:16 Malaria parasites Not Reportable 01/26/22 04:16 Jigar Bodies Not Reportable 01/26/22 04:16 Hem Pathologist Commnt No 01/26/22 04:16 D-Dimer 940.59 ng/mlDDU (0-234) H 01/20/22 04:39 Heparin Anti-Xa, Unfract Negative (Negative) 01/13/22 04:56 Sodium 140 mmol/L (137-145) 01/26/22 09:39 Potassium 5.5 mmol/L (3.6-5.0) H 01/26/22 09:39 Chloride 109.3 mmol/L (98-107) H 01/26/22 09:39 Carbon Dioxide 23 mmol/L (22-30) 01/26/22 09:39 Anion Gap 13 mmol/L 01/26/22 09:39 BUN 66 mg/dL (9-20) H 01/26/22 09:39 Creatinine 1.6 mg/dL (0.8-1.3) H 01/26/22 09:39 Estimated GFR 44 ml/min 01/26/22 09:39 BUN/Creatinine Ratio 41 % 01/26/22 09:39 Glucose 193 mg/dL (75-100) H 01/26/22 09:39 POC Glucose 109 mg/dL (70-105) H 01/26/22 16:25 Lactic Acid 1.70 mmol/L (0.7-2.0) 01/13/22 04:56 Calcium 8.0 mg/dL (8.4-10.2) L 01/26/22 09:39 Phosphorus 3.60 mg/dL (2.5-4.5) 01/17/22 07:06 Magnesium 2.30 mg/dL (1.7-2.3) 01/25/22 05:50 Ferritin 560.7 ng/mL (30.0-300.0) H 01/20/22 04:39 Total Bilirubin 0.60 mg/dL (0.1-1.2) 01/11/22 03:08 Direct Bilirubin 0.3 mg/dL (0-0.2) H 01/11/22 03:08 Indirect Bilirubin 0.3 mg/dL 01/11/22 03:08 AST 45 units/L (5-40) H 01/11/22 03:08 ALT 29 units/L (7-56) 01/11/22 03:08 Alkaline Phosphatase 180 units/L (35-129) H 01/11/22 03:08 Lactate Dehydrogenase 334 units/L (91-180) H 01/20/22 04:39 Total Creatine Kinase 15 units/L (55-170) L 01/20/22 04:39 C-Reactive Protein 3.10 mg/dL (0.00-1.30) H 01/22/22 06:10 Serum Total Protein 5.4 g/dL (6.1-8.1) L 01/15/22 08:41 Total Protein 7.3 g/dL (6.3-8.2) 01/11/22 03:08 Albumin 2.0 g/dL (3.8-4.8) L 01/15/22 08:41 Albumin/Globulin Ratio 0.5 % 01/11/22 03:08 Mhnia-2-Mukbrpqed 0.5 g/dL (0.2-0.3) H 01/15/22 08:41 Kidxn-9-Djhbjiiqk 0.9 g/dL (0.5-0.9) 01/15/22 08:41 Beta Globulins 0.6 g/dL (0.2-0.5) H 01/15/22 08:41 Gamma Globulins 1.2 g/dL (0.8-1.7) 01/15/22 08:41 Abnorm Protein Band 1 see below 01/15/22 08:41 PEP Interpretation see below H 01/15/22 08:41 Serotonin Release Assay See scanned result 01/13/22 04:56 Procalcitonin 0.74 ng/mL (<0.15) 01/20/22 04:39 Urine Color Claudia (Yellow) 01/12/22 11:44 Urine Turbidity Cloudy (Clear) 01/12/22 11:44 Urine pH 5.0 (5.0-7.0) 01/12/22 11:44 Ur Specific [place] 1.030 (1.003-1.030) 01/12/22 11:44 Urine Protein 30 mg/dl mg/dL (Negative) 01/12/22 11:44 Urine Glucose (UA) Negative mg/dL (Negative) 01/12/22 11:44 Urine Ketones Negative mg/dL (Negative) 01/12/22 11:44 Urine Blood Moderate (Negative) A 01/12/22 11:44 Urine Nitrite Negative (Negative) 01/12/22 11:44 Ur Reducing Substances Not Reportable 01/12/22 11:44 Urine Bilirubin Negative (Negative) 01/12/22 11:44 Urine Ictotest Not Reportable 01/12/22 11:44 Urine Urobilinogen 0.0 mg/dL (<2.0) 01/12/22 11:44 Ur Leukocyte Esterase Trace (Negative) 01/12/22 11:44 Urine WBC (Auto) > 182.0 /HPF (0.0-6.0) H 01/12/22 11:44 Urine RBC (Auto) 12.0 /HPF (0.0-6.0) 01/12/22 11:44 Urine Bacteria (Auto) 2+ /HPF (Negative) 01/12/22 11:44 Urine WBC Clumps 3+ /HPF 01/11/22 07:14 Urine Mucus Few /HPF 01/12/22 11:44 Urine Total Volume 1700 ml 01/20/22 17:30 Urine Creatinine 61.8 mg/dL (0.1-20.0) H 01/20/22 17:30 Height (in) 70.0 inches 01/20/22 17:30 Weight (lb) 124.7 lbs 01/20/22 17:30 Creatinine Clearance 28 01/20/22 17:30 Urine Sodium 58 mmol/L 01/12/22 11:44 Nasal Screen MRSA (PCR) Positive (Negative) 01/12/22 Unknown Random Vancomycin 10.3 ug/mL (0-40.0) 01/18/22 07:50 KAMILLA Screen Negative (Negative) 01/14/22 05:47 Proteinase 3 (PR3) Ab <1.0 AI (<1.0) 01/13/22 18:40 Myeloperoxidase Ab <1.0 AI (<1.0) 01/13/22 18:40 Heparin-induced Plt Ab Positive (Negative) H 01/13/22 04:56 UF Heparin High Dose 3 % Release 01/13/22 04:56 BRYCE UFH Low Dose 0.1 4 % Release 01/13/22 04:56 BRYCE UFH Low Dose 0.5 5 % Release 01/13/22 04:56 Complement C3 203 mg/dL (82-185) H 01/15/22 08:41 Complement C4 52 mg/dL (15-53) 01/15/22 08:41 C. difficile Tox (PCR) Negative (Negative) 01/15/22 11:32 Coronavirus (PCR) Positive (Negative) A 01/15/22 10:30 SARS-CoV-2 (PCR) Negative (Negative) 01/22/22 10:30 Hepatitis A IgM Ab Non-reactive (NonReactive) 01/13/22 18:40 Hep Bs Antigen Non-reactive (Negative) 01/13/22 18:40 Hep B Core IgM Ab Non-reactive (NonReactive) 01/13/22 18:40 Hepatitis C Antibody Non-reactive (NonReactive) 01/13/22 18:40 Miscellaneous Test Flexitest 1 H 01/13/22 18:40 Blood Type A POSITIVE 01/24/22 06:50 Antibody Screen Negative 01/24/22 06:50 Crossmatch See Detail 01/24/22 06:50 [place]/IV: Voiding Method Condom Catheter Active Medications - Current Medications Current Medications: Generic Name Dose Route Start Last Admin Trade Name Freq PRN Reason Stop Dose Admin Acetaminophen 650 mg 01/11/22 05:40 01/25/22 22:09 Acetaminophen 325 Mg Tab PO 650 mg Q4H PRN Administration Pain MILD(1-3)/Fever >100.5/ROGERS Albuterol 2.5 mg 01/11/22 05:40 Albuterol 2.5 Mg/3 Ml Nebu IH Q3HRT PRN Shortness Of Breath Lipase/Protease/Amylase 1 each 01/17/22 16:03 Lipase 10,500/Protease 25,000/Amylase 43,750 (Units) Dr Mariee FEEDTUBE PRN PRN For Clogged Feeding Tube Ascorbic Acid 1,000 mg 01/19/22 22:00 01/26/22 12:33 Ascorbic Acid 500 Mg Tab PO Not Given BID ALEXSANDRA Aspirin 81 mg 01/13/22 11:00 01/26/22 12:22 Aspirin 81 Mg Tab Chew FEEDTUBE Not Given QDAY ALEXSANDRA Atorvastatin Calcium 80 mg 01/11/22 22:00 01/25/22 22:10 Atorvastatin 40 Mg Tab PO 80 mg QHS ALEXSANDRA Administration Cholecalciferol 5,000 unit 01/20/22 10:00 01/26/22 12:23 Cholecalciferol (Vit D3) 5,000 Unit Tab PO Not Given DAILY ALEXSANDRA Dextrose 50 ml 01/11/22 05:40 Dextrose 50% In Water (25gm) 50 Ml Syringe IV Q30MIN PRN Hypoglycemia Protocol Famotidine 10 mg 01/13/22 11:00 01/26/22 12:22 Famotidine 10 Mg Tab FEEDTUBE Not Given BID ALEXSANDRA Hydralazine HCl 10 mg 01/11/22 05:54 Hydralazine 20 Mg/1 Ml Inj IV Q6H PRN Blood Pressure Daptomycin 300 mg/ Sodium 100 mls @ 200 mls/hr 01/19/22 12:00 01/26/22 06:07 Chloride IV Infused Q48H ALEXSANDRA Infusion Protocol Sodium Chloride 1,000 mls @ 125 mls/hr 01/20/22 15:00 01/26/22 06:19 Nacl 0.45% 1000 Ml IV 125 mls/hr DIRECT ALEXSANDRA Administration Cefepime HCl 2 gm in 100 mls @ 200 mls/hr 01/26/22 18:00 01/26/22 17:04 Cefepime/Ns 2 Gm/100 Ml IV 200 mls/hr Q12H ALEXSANDRA Administration Protocol Insulin Glargine 15 units 01/18/22 22:00 01/25/22 22:16 Insulin Glargine 100 Units/Ml SUB-Q 15 units HS ALEXSANDRA Administration Insulin Human Lispro 0 unit 01/11/22 06:00 01/26/22 12:04 Insulin Lispro 100 Unit/Ml SUB-Q 3 unit Q6HR COUNTS INCLUDE 234 BEDS AT THE [facility] Administration Protocol Insulin Human Lispro 5 unit 01/25/22 07:30 01/26/22 16:30 Insulin Lispro 100 Unit/Ml SUB-Q 5 unit AC COUNTS INCLUDE 234 BEDS AT THE [facility] Administration Midodrine 10 mg 01/12/22 09:03 01/26/22 17:04 Midodrine 10 Mg Tab PO 10 mg TID@0800,1200,1600 COUNTS INCLUDE 234 BEDS AT THE [facility] Administration Morphine Sulfate 2 mg 01/24/22 17:53 01/25/22 02:40 Morphine 2 Mg/1 Ml Inj IV 2 mg Q6H PRN Administration Pain, Moderate (4-6) Ondansetron HCl 4 mg 01/11/22 05:40 Ondansetron 4 Mg/2 Ml Inj IV Q8H PRN Nausea And Vomiting Oxycodone/Acetaminophen 1 tab 01/24/22 17:52 01/26/22 12:29 Oxycodone /Acetaminophen 5-325mg Tab PO 1 tab Q6H PRN Administration Pain, Moderate (4-6) Prazosin HCl 5 mg 01/15/22 22:00 01/26/22 12:22 Prazosin 5 Mg Cap PO Not Given Q12HR ALEXSANDRA Simple Syrup 15 ml 01/17/22 16:03 Simple Syrup 15 Ml FEEDTUBE PRN PRN Hypoglycemia Simple Syrup 30 ml 01/17/22 16:03 Simple Syrup 15 Ml FEEDTUBE PRN PRN Hypoglycemia Sodium Bicarbonate 325 mg 01/17/22 16:03 Sodium Bicarbonate 325 Mg Tab FEEDTUBE PRN PRN For Clogged Feeding Tube Sodium Chloride 10 ml 01/11/22 10:00 01/26/22 12:22 Sodium Chloride 0.9% 10 Ml Flush Syringe IV Not Given BID ALEXSANDRA Sodium Chloride 10 ml 01/11/22 05:40 Sodium Chloride 0.9% 10 Ml Flush Syringe IV PRN PRN LINE FLUSH Sodium Hypochlorite 1 applic 01/14/22 10:00 01/26/22 12:22 Sodium Hypochlorite, Dakin's 1/2 Strength (0.25%) 473 Ml Topical Soln TP Not Given BID COUNTS INCLUDE 234 BEDS AT THE [facility] Zinc Sulfate 220 mg 01/19/22 22:00 01/26/22 12:23 Zinc Sulfate 220 Mg Cap PO Not Given BID COUNTS INCLUDE 234 BEDS AT THE [facility] Nutrition/Malnutrition Assess - Dietary Evaluation Nutrition/Malnutrition Findings: Nutrition Notes Start: 01/12/22 13:45 Freq: Status: Active Protocol: Document 01/21/22 16:43 JARON (Rec: 01/21/22 17:02 JARON [email or web address]) Nutrition Notes Initial or Follow up Brief Note Current Diagnosis Acute Kidney Injury,CKD(stage I-IV),Decubitus(Pressure Ulcer ),Diabetes,Sepsis,Hypertension ,Stroke Other Pertinent Diagnosis CHF, Metabolic Encephalopathy, COVID-19, SIRS. Current Diet TF-Glucerna 1.2 Nicolas @ 75 ml/hr (since D 01/19). Height 5 ft 10 in Weight 56.69 kg [place] Body Weight (kg) 75.45 BMI 17.9 Weight change and time frame No body weight change reported in 10 days Weight Status Underweight Subjective/Other Information RD consult for routine F/U on TF tolerance/continuation. TF continues as prescribed, no reports on tolerance available at the time, will assess at F/U. Pt is on Room Air, O2 saturation @ 100%, according to Physical Assessment History notes. Percent of energy/protein needs met: Prescribed TF-Glucerna 1.2 Nicolas @ 75 ml/hr provides for energy/protein needs (2,160 Kcal/108 g) during LOS, 95% Kcal; 100% AA. #2 Nutrition Diagnosis Malnutrition Diagnosis Progress(for reassessment Continues documentation) #1 Nutrition Diagnosis Swallowing difficulty Diagnosis Progress(for reassessment Continues documentation) Is patient on ventilator? No Is Patient Ambulatory and/or Out of Bed No REE-([facility]-confined to bed) 1635.336 Kcal/Kg value to use for calculation 40 Approximate Energy Requirements Using 2268 kcal/Kg Calculation Used for Recommendations Kcal/kg Additional Notes Protein: 1.5-2 g/Kg IBW; 85- 113 g/day. Fluids: 1 ml/Kcal, or as per MD. Nutrition Intervention Nutrition Support: Continue TF-Glucerna 1.2 Nicolas @ 75 ml/hr. Flush: 120 ml water Q 4 hr, or as per MD. Kcal 2,160 Protein (gm) 108 Carbohydrates (gm) 206 Fat (gm) 108 Fluid (mL) 1,449 Fiber (gm) 29 % RDI: 95% Kcal; 100% AA. Goal #1 Provide at least 75% of energy /protein needs through Enteral Feeding during LOS. Follow-Up By: 01/28/22 Additional Comments Continue monitoring TF tolerance and BM.
[2022-01-26] MEDS: INSULIN GLARGINE 100 UNITS/ML SUB-Q SCH (23:47)
[2022-01-27] MEDS: INSULIN LISPRO 100 UNIT/ML SUB-Q SCH ×7 (00:11→18:10)
[2022-01-27] MEDS: FREE WATER PO SCH ×6 (01:48→22:16)
[2022-01-27] MEDS: oxyCODONE /ACETAMINOPHEN 5-325MG TAB PO PRN (01:48)
[2022-01-27] MEDS: CEFEPIME/NS 2 GM/100 ML 2 GM/100 ML BAG IV SCH ×2 (06:08→18:09)
--- NOTE | 2022-01-27 08:30 | Progress Note ---
Assessment and Plan Acute metabolic encephalopathy MAURI (acute kidney injury) Hypertension Congestive heart failure Diabetes Hypernatremia SIRS (systemic inflammatory response syndrome COVID-positive Hyperkalemia Plan: BMP is pending, Cr is trending down yesterday, good UOP Hemodialysis has been discontinued S/P vasc cath removal on 01/24/22 Anemia-transfuse as needed Renal US was negative for obstruction Renally dose medications Strict I&O's daily Obtain daily weights Continue to monitor renal function Subjective Date of service: 01/27/22 Principal diagnosis: MAURI Interval history: no overnight events Objective - Vital Signs Vital signs: Vital Signs - 12hr 01/26/22 01/26/22 01/26/22 22:00 23:30 23:52 Temperature 98.2 F Pulse Rate 82 82 Respiratory 18 Rate Blood Pressure 125/51 Blood Pressure 125/51 [Left] O2 Sat by Pulse 96 96 Oximetry 01/27/22 00:00 Temperature Pulse Rate 82 Respiratory Rate Blood Pressure Blood Pressure [Left] O2 Sat by Pulse Oximetry - Lab 01/26/22 04:16 01/26/22 09:39 Most recent lab results Calcium 8.0 mg/dL (8.4-10.2) L 01/26/22 09:39 Phosphorus 3.60 mg/dL (2.5-4.5) 01/17/22 07:06 Magnesium 2.30 mg/dL (1.7-2.3) 01/25/22 05:50 Urine Creatinine 61.8 mg/dL (0.1-20.0) H 01/20/22 17:30 Urine Sodium 58 mmol/L 01/12/22 11:44 Medications & Allergies - Medications Allergies/Adverse Reactions: Allergies heparin Allergy (Verified 01/19/22 10:43) Unknown Home Medications: Home Medications Medication Instructions Recorded Confirmed Last Taken Type cephALEXin [Keflex] 500 mg PO Q6HR 7 Days #28 capsule 12/09/21 01/14/22 Unknown Rx Aspirin [Elaine Aspirin EC] 81 mg PO QDAY 12/14/21 01/14/22 Unknown History Atorvastatin [Lipitor] 80 mg PO QHS 12/14/21 01/14/22 Unknown History Dapagliflozin Propanediol [Farxiga] 10 mg PO QDAY 12/14/21 01/14/22 Unknown Hist ory Insulin Detemir [Levemir VIAL] 25 unit SQ QHS 12/14/21 01/14/22 Unknown History Insulin Lispro [Admelog] 100 unit SQ ACHS 12/14/21 01/14/22 Unknown History Tamsulosin [Flomax] 0.4 mg PO QDAY 12/14/21 01/14/22 Unknown History carvediloL [Coreg] 3.125 mg PO BID 12/14/21 01/14/22 Unknown History Clopidogrel [Plavix] 75 mg PO QDAY tablet 12/27/21 01/14/22 Unknown Rx Sertraline [Zoloft] 100 mg PO QDAY #30 12/27/21 01/14/22 Unknown Rx Simple Syrup 15 ml FEEDTUBE PRN PRN oral.liqd 12/27/21 01/14/22 Unknown Rx Simple Syrup 30 ml FEEDTUBE PRN PRN oral.liqd 12/27/21 01/14/22 Unknown Rx Sodium Bicarbonate 325 mg FEEDTUBE PRN PRN #30 tablet 12/27/21 01/14/22 Unknown Rx Torsemide [Demadex] 20 mg PO QDAY #30 12/27/21 01/14/22 Unknown Rx Active Medications: Generic Name Dose Route Start Last Admin Trade Name Freq PRN Reason Stop Dose Admin Acetaminophen 650 mg 01/11/22 05:40 01/25/22 22:09 Acetaminophen 325 Mg Tab PO 650 mg Q4H PRN Administration Pain MILD(1-3)/Fever >100.5/ROGERS Albuterol 2.5 mg 01/11/22 05:40 Albuterol 2.5 Mg/3 Ml Nebu IH Q3HRT PRN Shortness Of Breath Lipase/Protease/Amylase 1 each 01/17/22 16:03 Lipase 10,500/Protease 25,000/Amylase 43,750 (Units) Dr Mariee FEEDTUBE PRN PRN For Clogged Feeding Tube Ascorbic Acid 1,000 mg 01/19/22 22:00 01/26/22 23:48 Ascorbic Acid 500 Mg Tab PO 1,000 mg BID ALEXSANDRA Administration Aspirin 81 mg 01/13/22 11:00 01/26/22 12:22 Aspirin 81 Mg Tab Chew FEEDTUBE Not Given QDAY ALEXSANDRA Atorvastatin Calcium 80 mg 01/11/22 22:00 01/26/22 23:48 Atorvastatin 40 Mg Tab PO 80 mg QHS ALEXSANDRA Administration Cholecalciferol 5,000 unit 01/20/22 10:00 01/26/22 12:23 Cholecalciferol (Vit D3) 5,000 Unit Tab PO Not Given DAILY ALEXSANDRA Dextrose 50 ml 01/11/22 05:40 Dextrose 50% In Water (25gm) 50 Ml Syringe IV Q30MIN PRN Hypoglycemia Protocol Famotidine 10 mg 01/13/22 11:00 01/26/22 23:48 Famotidine 10 Mg Tab FEEDTUBE 10 mg BID ALEXSANDRA Administration Hydralazine HCl 10 mg 01/11/22 05:54 Hydralazine 20 Mg/1 Ml Inj IV Q6H PRN Blood Pressure Daptomycin 300 mg/ Sodium 100 mls @ 200 mls/hr 01/19/22 12:00 01/26/22 06:07 Chloride IV Infused Q48H [facility] Infusion Protocol Sodium Chloride 1,000 mls @ 125 mls/hr 01/20/22 15:00 01/26/22 23:48 Nacl 0.45% 1000 Ml IV 125 mls/hr DIRECT ALEXSANDRA Administration Cefepime HCl 2 gm in 100 mls @ 200 mls/hr 01/26/22 18:00 01/27/22 06:08 Cefepime/Ns 2 Gm/100 Ml IV 200 mls/hr Q12H ALEXSANDRA Administration Protocol Insulin Glargine 15 units 01/18/22 22:00 01/26/22 23:47 Insulin Glargine 100 Units/Ml SUB-Q Not Given HS ALEXSANDRA Insulin Human Lispro 0 unit 01/11/22 06:00 01/27/22 06:28 Insulin Lispro 100 Unit/Ml SUB-Q Not Given Q6HR [facility] Protocol Insulin Human Lispro 5 unit 01/25/22 07:30 01/26/22 16:30 Insulin Lispro 100 Unit/Ml SUB-Q 5 unit AC ALEXSANDRA Administration Midodrine 10 mg 01/12/22 09:03 01/26/22 17:04 Midodrine 10 Mg Tab PO 10 mg TID@0800,1200,1600 ALEXSANDRA Administration Morphine Sulfate 2 mg 01/24/22 17:53 01/25/22 02:40 Morphine 2 Mg/1 Ml Inj IV 2 mg Q6H PRN Administration Pain, Moderate (4-6) Ondansetron HCl 4 mg 01/11/22 05:40 Ondansetron 4 Mg/2 Ml Inj IV Q8H PRN Nausea And Vomiting Oxycodone/Acetaminophen 1 tab 01/24/22 17:52 01/27/22 01:48 Oxycodone /Acetaminophen 5-325mg Tab PO 1 tab Q6H PRN Administration Pain, Moderate (4-6) Prazosin HCl 5 mg 01/15/22 22:00 01/26/22 23:52 Prazosin 5 Mg Cap PO Not Given Q12HR ALEXSANDRA Simple Syrup 15 ml 01/17/22 16:03 Simple Syrup 15 Ml FEEDTUBE PRN PRN Hypoglycemia Simple Syrup 30 ml 01/17/22 16:03 Simple Syrup 15 Ml FEEDTUBE PRN PRN Hypoglycemia Sodium Bicarbonate 325 mg 01/17/22 16:03 Sodium Bicarbonate 325 Mg Tab FEEDTUBE PRN PRN For Clogged Feeding Tube Sodium Chloride 10 ml 01/11/22 10:00 01/26/22 23:49 Sodium Chloride 0.9% 10 Ml Flush Syringe IV 10 ml BID ALEXSANDRA Administration Sodium Chloride 10 ml 01/11/22 05:40 Sodium Chloride 0.9% 10 Ml Flush Syringe IV PRN PRN LINE FLUSH Sodium Hypochlorite 1 applic 01/14/22 10:00 01/26/22 23:38 Sodium Hypochlorite, Dakin's 1/2 Strength (0.25%) 473 Ml Topical Soln TP 1 applicatio BID ALEXSANDRA Administration Zinc Sulfate 220 mg 01/19/22 22:00 01/26/22 23:49 Zinc Sulfate 220 Mg Cap PO 220 mg BID ALEXSANDRA Administration
[2022-01-27] MEDS: MIDODRINE 10 MG TAB PO SCH ×3 (08:38→17:02)
[2022-01-27] MEDS: ASCORBIC ACID 500 MG TAB PO SCH ×3 (08:38→22:16)
[2022-01-27] MEDS: FAMOTIDINE 10 MG TAB FEEDTUBE SCH ×3 (08:39→22:16)
[2022-01-27] MEDS: ZINC SULFATE 220 MG CAP PO SCH ×3 (08:39→22:16)
[2022-01-27] MEDS: PRAZOSIN 5 MG CAP PO SCH ×2 (08:39→11:01)
[2022-01-27] MEDS: ASPIRIN 81 MG TAB CHEW FEEDTUBE SCH ×2 (08:39→10:51)
[2022-01-27] MEDS: CHOLECALCIFEROL (VIT D3) 5,000 UNIT TAB PO SCH ×2 (08:40→10:51)
--- NOTE | 2022-01-27 08:54 | Progress Note ---
Assessment and Plan Assessment and plan: This is a 66-year-old male with known past medical history of hypertension, CVA, CHF, DM, dysphagia s/p PEGtube placement admitted for sepsis and MAURI Assessment and Plan; --Hyperkalemia --surgical debridement of decubitus ulcer sacrum, left heel 01/23/2022 Patient tolerated the procedure well Surgery recommended to DC Plavix for 5 days Postop care, pain medications #Acute Metabolic Encephalopathy - Multifactorial: probably due to azotemia vs hypernatremia, vs infectious process - on Continous IVF hydration and empiric IV abx - Mentation with mild improvement, following simple commands - CT head no changes - Frequent reorientation - Avoid sedatives agents - Maintenance of sleep-wake cycle #Hypotension 2/ #Sepsis Vs hypovolemia #H/o Congestive Heart Failure(CHF) - Presented with tachycardia and hypotension - Patient remains hypotension this am, was febrile overnight and worsen leukocyt osis this am - 12/14/21 Ech reviewed EF 45-50%, patient appear hypovolemic and dry - Continue IVF hydration per Nephro - Hold home antihypertensive agents - Midodrine added - cont. IVF, increased free water with TF for hypernatremia - Continue blood pressure monitor per protocol - Maintain MAP above 65 - Strict intake and output and daily weight #Acute Kidney Injury(MAURI) most likely ATN, placed on HD #Hypernatremia #Hyperkalemia, resolved # hypokalemia - probably due to hypotension/hypovelemia - Per record Scr. was 1.2 from last admit on 12/2021 - Scr. as high as 5.9, BUN 111 - s/p X1 dose of kayexalate, FWF for hypernatremia - Nephrology on consult, appreciated recommendation - no hydronephrosis on renal US - Strict intake and output - Avoid nephrotoxic medications; Renally dose medications - Vallecillo in place, initiated on HD 01/14 - replete electrolytes as needed #Severe Sepsis- multifactorial #Acute cystitis/UTI/VRE UTI # Positive Covid 19 #Infected Sacral Decubitis Ulcer/Proteus mirabilis #Leukocytosis #Lactic Acidosis - Presented with tachycardia and hypotension - Patient remains hypotension this am, was febrile overnight and worsen leukocytosis this am - Cultures pending, MRSA PCR positive - With multiple wounds, including malodourous, unstageable sacral decubitis. -Patient is on cefepime and daptomycin per ID - General Surgery consulted for possible debridement, wound care eval and treat - Wound care also consulted #Dysphagia s/p PEGtube Placement - Nutrition consulted - Initiated enteral nutrition #Thrombocytopenia - Presented with low plt - Plt count worsen this am - no s/s of any active bleeding - Will hold AC- heparin SubQ for now - H&H stable - HIT panel ordered #Type 2 Diabetes with Hyperglycemia - Continue BG and SSI Q6hrs - Lantus added qHs - While critically ill target blood glucose of 140-180 #GI/DVT Prophylaxis - PPI- Pepcid - SCDs to bilateral lower extremities while in bed Consults and recommendations noted and appreciated Closely monitor the patient and adjust management as needed Plan of care reviewed with patient and his nurse DC planning per case management/SNF placement COVID-19 PCR positive Rapid PCR test negative C. difficile negative Home O2 evaluation prior to discharge Continue current management Hospital Course to Date: 01/12: Patient remains encephalopathic but more awake, following simple commands. Still hypotensive this am, probable sepsis. Febrile overnight with worsening leukocytosis this am. Cultures are pending. Continue IVF hydration and empiric IV abx. Multiple wounds, including unstageable sacral decub and MRSA PCR positive. IV Vanco was also initiated, renal dose per pharmacy. ID consulted. Midodrine also added TID. General surgery and wound care was also consulted for wounds eval and treatment. Worsening renal function with hypernatremia and hyperkalemia also noted, continue IVF hydration per nephro. Worsening thromboc ytopenia also noted, no s/s of any active bleeding. H&H stable. Hold AC for now, HIT panel ordered. Lantus qhs added for hyperglycemia, continue BG and SSI Q6hrs 01/13: Patient tolerating tube feeds via PEG, unsure why the patient who had a PEG got so dehydrated at the facility, it appears he was tolerating some PO and as a result PEG was not in use at the facility. He is for debridement tomorrow, will continue free water flushes-150CC Q6 Considering he is on HD, will reassess and stop tomorrow if improved, Keep NPO after Midnight Continue abx therapy, Mental status improving some Discharge planning when stable 01/14/ Na level improving, Cr stable after HD x2, cont iv fluid, follow renal jadiel mmendation, pending surgical eval for decubitus ulcer 01/15: Plan to hold hemodialysis today, creatinine IVF/stable. Status post bedside debridement of the decubitus ulcer by general surgery. Patient need deep debridement which is planned for tomorrow. N.p.o. after midnight. Continue to follow BMP 01/16: Positive for COVID-19, moved to COVID floor. We will continue to follow inflammatory markers. cancelled deep debridement at the protocols today. We will continue to follow. Not a candidate for remdesivir due to renal failure, oxygen requirement has not changed, will hold dexamethasone. Continue to follow 01/17: BP remains very soft today, will initiate IV fluid, continue to monitor cl inically. Monitor renal function and inflammatory markers. add long acting insulin for hyperglycemia 01/18: K 2.8 today, cont to replete, ordered CT head worsening encephalopathy, cont restrain. Patient remians confused, follow inflammatory markers. follow BMP 01/19: patient on RA, remains confused. Na 150 today, changed iv fluid to D5w and increased free water with TF. follow inflammatory markers. D-dimer >1000, will change heparin to eliquis 2.[address] head w/o any changes 01/21/22; severe sepsis currently patient is on cefepime and daptomycin per ID Sacral decubitus ulcer, surgery following, awaiting debridement 7 days after COVID is positive for OR protocols 01/22/22 possible decubitus ulcer debridement tomorrow per surgery Patient is n.p.o. status from midnight 01/23; patient is scheduled for surgical debridement of decubitus ulcers 01/24; status post surgical debridement of decubitus ulcer, Plavix held for 5 days per surgeon Continue postop care 01/25 patient's hemoglobin dropped to 7.3, transfuse 1 unit PRBC Continue postop care, vital signs noted 01/26; Hb increased to 7.8, continue current management Patient VRE UTI, cefepime and daptomycin 01/27; hyperkalemia potassium 5.5, Kayexalate closely monitor electrolytes Try to adjust pain medications, sedation to keep patient comfortable Surgery and ID evaluations and recommendations appreciated History Interval history: I have seen and examined the patient at the bedside Patient's chart and medications reviewed Patient patient is in distress, screaming Probably secondary to pain Vital signs noted Hospitalist Physical - Constitutional Vitals: Temp Pulse Resp BP Pulse Ox 98.2 F 82 18 125/51 96 01/26/22 23:30 01/27/22 00:00 01/26/22 23:30 01/26/22 23:52 01/26/22 23:30 General appearance: Present: no acute distress, cachectic, other (Responding to simple questions appropriately) - EENT Eyes: Present: PERRL, EOM intact - Neck Neck: Present: supple, normal ROM - Respiratory Respiratory effort: normal Respiratory: bilateral: diminished, negative: rales, rhonchi, wheezing - Cardiovascular Rhythm: regular Heart Sounds: Present: S1 & S2 - Extremities Extremities: no ischemia, abnormal (Left heel dressing in place) - Abdominal General gastrointestinal: soft, non-tender, non-distended, other (PEG tube in place) - Integumentary Integumentary: Present: clear, warm - Psychiatric Psychiatric: agitated, other (Distress) - Neurologic Neurologic: other (Noncommunicative) Results - Labs CBC & Chem 7: 01/26/22 04:16 01/27/22 08:44 Labs: Laboratory Last Values WBC 13.8 K/mm3 (4.5-11.0) H 01/26/22 04:16 RBC 2.87 M/mm3 (3.65-5.03) L 01/26/22 04:16 Hgb 7.8 gm/dl (11.8-15.2) L 01/26/22 04:16 Hct 24.8 % (35.5-45.6) L 01/26/22 04:16 MCV 87 fl (84-94) 01/26/22 04:16 MCH 27 pg (28-32) L 01/26/22 04:16 MCHC 31 % (32-34) L 01/26/22 04:16 RDW 22.9 % (13.2-15.2) H 01/26/22 04:16 Plt Count 119 K/mm3 (140-440) L 01/26/22 04:16 [place] % (Auto) 4.2 % (0.0-7.3) 01/17/22 07:06 Eos % (Auto) 1.0 % (0.0-4.3) 01/17/22 07:06 [place] # (Auto) 0.5 K/mm3 (0.0-0.8) 01/17/22 07:06 Eos # (Auto) 0.1 K/mm3 (0.0-0.4) 01/17/22 07:06 Baso # (Auto) 0.1 K/mm3 (0.0-0.1) 01/17/22 07:06 Add Manual Diff Complete 01/26/22 04:16 Total Counted 100 01/26/22 04:16 Seg Neutrophils % Transport Conductor 01/17/22 07:06 Seg Neuts % (Manual) 90.0 % (40.0-70.0) H 01/26/22 04:16 Band Neutrophils % 0 % 01/26/22 04:16 Lymphocytes % (Manual) 5.0 % (13.4-35.0) L 01/26/22 04:16 Reactive Lymphs % (Man) 0 % 01/26/22 04:16 Monocytes % (Manual) 3.0 % (0.0-7.3) 01/26/22 04:16 Eosinophils % (Manual) 1.0 % (0.0-4.3) 01/26/22 04:16 Basophils % (Manual) 0 % (0.0-1.8) 01/26/22 04:16 Metamyelocytes % 0 % 01/26/22 04:16 Myelocytes % 1.0 % 01/26/22 04:16 Promyelocytes % 0 % 01/26/22 04:16 Blast Cells % 0 % 01/26/22 04:16 Nucleated RBC % Not Reportable 01/26/22 04:16 Seg Neutrophils # 11.3 K/mm3 (1.8-7.7) H 01/17/22 07:06 Seg Neutrophils # Man 12.4 K/mm3 (1.8-7.7) H 01/26/22 04:16 Band Neutrophils # 0.0 K/mm3 01/26/22 04:16 Lymphocytes # (Manual) 0.7 K/mm3 (1.2-5.4) L 01/26/22 04:16 Abs React Lymphs (Man) 0.0 K/mm3 01/26/22 04:16 Monocytes # (Manual) 0.4 K/mm3 (0.0-0.8) 01/26/22 04:16 Eosinophils # (Manual) 0.1 K/mm3 (0.0-0.4) 01/26/22 04:16 Basophils # (Manual) 0.0 K/mm3 (0.0-0.1) 01/26/22 04:16 Metamyelocytes # 0.0 K/mm3 01/26/22 04:16 Myelocytes # 0.1 K/mm3 01/26/22 04:16 Promyelocytes # 0.0 K/mm3 01/26/22 04:16 Blast Cells # 0.0 K/mm3 01/26/22 04:16 WBC Morphology Not Reportable 01/26/22 04:16 Hypersegmented Neuts Not Reportable 01/26/22 04:16 Hyposegmented Neuts Not Reportable 01/26/22 04:16 Hypogranular Neuts Not Reportable 01/26/22 04:16 Smudge Cells Not Reportable 01/26/22 04:16 Toxic Granulation Not Reportable 01/26/22 04:16 Toxic Vacuolation Not Reportable 01/26/22 04:16 Dohle Bodies Not Reportable 01/26/22 04:16 Pelger-Huet Anomaly Not Reportable 01/26/22 04:16 Sarah Rods Not Reportable 01/26/22 04:16 Platelet Estimate Consistent w auto 01/26/22 04:16 Clumped Platelets Not Reportable 01/26/22 04:16 Plt Clumps, EDTA Not Reportable 01/26/22 04:16 Large Platelets Not Reportable 01/26/22 04:16 Giant Platelets Not Reportable 01/26/22 04:16 Platelet Satelliting Not Reportable 01/26/22 04:16 Plt Morphology Comment Not Reportable 01/26/22 04:16 RBC Morphology Not Reportable 01/26/22 04:16 Dimorphic RBCs Not Reportable 01/26/22 04:16 Polychromasia Not Reportable 01/26/22 04:16 Hypochromasia Not Reportable 01/26/22 04:16 Poikilocytosis Not Reportable 01/26/22 04:16 Anisocytosis Not Reportable 01/26/22 04:16 Microcytosis Not Reportable 01/26/22 04:16 Macrocytosis Not Reportable 01/26/22 04:16 Spherocytes Not Reportable 01/26/22 04:16 Pappenheimer Bodies Not Reportable 01/26/22 04:16 Sickle Cells Not Reportable 01/26/22 04:16 Target Cells Not Reportable 01/26/22 04:16 Tear Drop Cells Not Reportable 01/26/22 04:16 Ovalocytes Not Reportable 01/26/22 04:16 Helmet Cells Not Reportable 01/26/22 04:16 Greer-Bovill Bodies Not Reportable 01/26/22 04:16 [place] Rings Not Reportable 01/26/22 04:16 [place] Cells Not Reportable 01/26/22 04:16 Bite Cells Not Reportable 01/26/22 04:16 Crenated Cell Not Reportable 01/26/22 04:16 Elliptocytes Not Reportable 01/26/22 04:16 Acanthocytes (Spur) Not Reportable 01/26/22 04:16 Rouleaux Not Reportable 01/26/22 04:16 Hemoglobin C Crystals Not Reportable 01/26/22 04:16 Schistocytes Not Reportable 01/26/22 04:16 Malaria parasites Not Reportable 01/26/22 04:16 Jigar Bodies Not Reportable 01/26/22 04:16 Hem Pathologist Commnt No 01/26/22 04:16 D-Dimer 940.59 ng/mlDDU (0-234) H 01/20/22 04:39 Heparin Anti-Xa, Unfract Negative (Negative) 01/13/22 04:56 Sodium 140 mmol/L (137-145) 01/26/22 09:39 Potassium 5.5 mmol/L (3.6-5.0) H 01/26/22 09:39 Chloride 109.3 mmol/L (98-107) H 01/26/22 09:39 Carbon Dioxide 23 mmol/L (22-30) 01/26/22 09:39 Anion Gap 13 mmol/L 01/26/22 09:39 BUN 66 mg/dL (9-20) H 01/26/22 09:39 Creatinine 1.6 mg/dL (0.8-1.3) H 01/26/22 09:39 Estimated GFR 44 ml/min 01/26/22 09:39 BUN/Creatinine Ratio 41 % 01/26/22 09:39 Glucose 193 mg/dL (75-100) H 01/26/22 09:39 POC Glucose 149 mg/dL (70-105) H 01/27/22 06:25 Lactic Acid 1.70 mmol/L (0.7-2.0) 01/13/22 04:56 Calcium 8.0 mg/dL (8.4-10.2) L 01/26/22 09:39 Phosphorus 3.60 mg/dL (2.5-4.5) 01/17/22 07:06 Magnesium 2.30 mg/dL (1.7-2.3) 01/25/22 05:50 Ferritin 560.7 ng/mL (30.0-300.0) H 01/20/22 04:39 Total Bilirubin 0.60 mg/dL (0.1-1.2) 01/11/22 03:08 Direct Bilirubin 0.3 mg/dL (0-0.2) H 01/11/22 03:08 Indirect Bilirubin 0.3 mg/dL 01/11/22 03:08 AST 45 units/L (5-40) H 01/11/22 03:08 ALT 29 units/L (7-56) 01/11/22 03:08 Alkaline Phosphatase 180 units/L (35-129) H 01/11/22 03:08 Lactate Dehydrogenase 334 units/L (91-180) H 01/20/22 04:39 Total Creatine Kinase 25 units/L (55-170) L 01/27/22 06:16 C-Reactive Protein 3.10 mg/dL (0.00-1.30) H 01/22/22 06:10 Serum Total Protein 5.4 g/dL (6.1-8.1) L 01/15/22 08:41 Total Protein 7.3 g/dL (6.3-8.2) 01/11/22 03:08 Albumin 2.0 g/dL (3.8-4.8) L 01/15/22 08:41 Albumin/Globulin Ratio 0.5 % 01/11/22 03:08 Aowbj-4-Ptsjnyaww 0.5 g/dL (0.2-0.3) H 01/15/22 08:41 Wkawx-3-Wmysennob 0.9 g/dL (0.5-0.9) 01/15/22 08:41 Beta Globulins 0.6 g/dL (0.2-0.5) H 01/15/22 08:41 Gamma Globulins 1.2 g/dL (0.8-1.7) 01/15/22 08:41 Abnorm Protein Band 1 see below 01/15/22 08:41 PEP Interpretation see below H 01/15/22 08:41 Serotonin Release Assay See scanned result 01/13/22 04:56 Procalcitonin 0.74 ng/mL (<0.15) 01/20/22 04:39 Urine Color Claudia (Yellow) 01/12/22 11:44 Urine Turbidity Cloudy (Clear) 01/12/22 11:44 Urine pH 5.0 (5.0-7.0) 01/12/22 11:44 Ur Specific [place] 1.030 (1.003-1.030) 01/12/22 11:44 Urine Protein 30 mg/dl mg/dL (Negative) 01/12/22 11:44 Urine Glucose (UA) Negative mg/dL (Negative) 01/12/22 11:44 Urine Ketones Negative mg/dL (Negative) 01/12/22 11:44 Urine Blood Moderate (Negative) A 01/12/22 11:44 Urine Nitrite Negative (Negative) 01/12/22 11:44 Ur Reducing Substances Not Reportable 01/12/22 11:44 Urine Bilirubin Negative (Negative) 01/12/22 11:44 Urine Ictotest Not Reportable 01/12/22 11:44 Urine Urobilinogen 0.0 mg/dL (<2.0) 01/12/22 11:44 Ur Leukocyte Esterase Trace (Negative) 01/12/22 11:44 Urine WBC (Auto) > 182.0 /HPF (0.0-6.0) H 01/12/22 11:44 Urine RBC (Auto) 12.0 /HPF (0.0-6.0) 01/12/22 11:44 Urine Bacteria (Auto) 2+ /HPF (Negative) 01/12/22 11:44 Urine WBC Clumps 3+ /HPF 01/11/22 07:14 Urine Mucus Few /HPF 01/12/22 11:44 Urine Total Volume 1700 ml 01/20/22 17:30 Urine Creatinine 61.8 mg/dL (0.1-20.0) H 01/20/22 17:30 Height (in) 70.0 inches 01/20/22 17:30 Weight (lb) 124.7 lbs 01/20/22 17:30 Creatinine Clearance 28 01/20/22 17:30 Urine Sodium 58 mmol/L 01/12/22 11:44 Nasal Screen MRSA (PCR) Positive (Negative) 01/12/22 Unknown Random Vancomycin 10.3 ug/mL (0-40.0) 01/18/22 07:50 KAMILLA Screen Negative (Negative) 01/14/22 05:47 Proteinase 3 (PR3) Ab <1.0 AI (<1.0) 01/13/22 18:40 Myeloperoxidase Ab <1.0 AI (<1.0) 01/13/22 18:40 Heparin-induced Plt Ab Positive (Negative) H 01/13/22 04:56 UF Heparin High Dose 3 % Release 01/13/22 04:56 BRYCE UFH Low Dose 0.1 4 % Release 01/13/22 04:56 BRYCE UFH Low Dose 0.5 5 % Release 01/13/22 04:56 Complement C3 203 mg/dL (82-185) H 01/15/22 08:41 Complement C4 52 mg/dL (15-53) 01/15/22 08:41 C. difficile Tox (PCR) Negative (Negative) 01/15/22 11:32 Coronavirus (PCR) Positive (Negative) A 01/15/22 10:30 SARS-CoV-2 (PCR) Negative (Negative) 01/22/22 10:30 Hepatitis A IgM Ab Non-reactive (NonReactive) 01/13/22 18:40 Hep Bs Antigen Non-reactive (Negative) 01/13/22 18:40 Hep B Core IgM Ab Non-reactive (NonReactive) 01/13/22 18:40 Hepatitis C Antibody Non-reactive (NonReactive) 01/13/22 18:40 Miscellaneous Test Flexitest 1 H 01/13/22 18:40 Blood Type A POSITIVE 01/24/22 06:50 Antibody Screen Negative 01/24/22 06:50 Crossmatch See Detail 01/24/22 06:50 Val[place]/IV: Voiding Method Indwelling Catheter Active Medications - Current Medications Current Medications: Generic Name Dose Route Start Last Admin Trade Name Freq PRN Reason Stop Dose Admin Acetaminophen 650 mg 01/11/22 05:40 01/25/22 22:09 Acetaminophen 325 Mg Tab PO 650 mg Q4H PRN Administration Pain MILD(1-3)/Fever >100.5/ROGERS Albuterol 2.5 mg 01/11/22 05:40 Albuterol 2.5 Mg/3 Ml Nebu IH Q3HRT PRN Shortness Of Breath Lipase/Protease/Amylase 1 each 01/17/22 16:03 Lipase 10,500/Protease 25,000/Amylase 43,750 (Units) Dr Mariee FEEDTUBE PRN PRN For Clogged Feeding Tube Ascorbic Acid 1,000 mg 01/19/22 22:00 01/27/22 08:38 Ascorbic Acid 500 Mg Tab PO 1,000 mg BID ALEXSANDRA Administration Aspirin 81 mg 01/13/22 11:00 01/27/22 08:39 Aspirin 81 Mg Tab Chew FEEDTUBE 81 mg QDAY ALEXSANDRA Administration Atorvastatin Calcium 80 mg 01/11/22 22:00 01/26/22 23:48 Atorvastatin 40 Mg Tab PO 80 mg QHS ALEXSANDRA Administration Cholecalciferol 5,000 unit 01/20/22 10:00 01/27/22 08:40 Cholecalciferol (Vit D3) 5,000 Unit Tab PO 5,000 unit DAILY ALEXSANDRA Administration Dextrose 50 ml 01/11/22 05:40 Dextrose 50% In Water (25gm) 50 Ml Syringe IV Q30MIN PRN Hypoglycemia Protocol Famotidine 10 mg 01/13/22 11:00 01/27/22 08:39 Famotidine 10 Mg Tab FEEDTUBE 10 mg BID ALEXSANDRA Administration Hydralazine HCl 10 mg 01/11/22 05:54 Hydralazine 20 Mg/1 Ml Inj IV Q6H PRN Blood Pressure Daptomycin 300 mg/ Sodium 100 mls @ 200 mls/hr 01/19/22 12:00 01/26/22 06:07 Chloride IV Infused Q48H ALEXSANDRA Infusion Protocol Sodium Chloride 1,000 mls @ 125 mls/hr 01/20/22 15:00 01/26/22 23:48 Nacl 0.45% 1000 Ml IV 125 mls/hr DIRECT ALEXSANDRA Administration Cefepime HCl 2 gm in 100 mls @ 200 mls/hr 01/26/22 18:00 01/27/22 06:08 Cefepime/Ns 2 Gm/100 Ml IV 200 mls/hr Q12H ALEXSANDRA Administration Protocol Insulin Glargine 15 units 01/18/22 22:00 01/26/22 23:47 Insulin Glargine 100 Units/Ml SUB-Q Not Given HS [facility] Insulin Human Lispro 0 unit 01/11/22 06:00 01/27/22 06:28 Insulin Lispro 100 Unit/Ml SUB-Q Not Given Q6HR [facility] Protocol Insulin Human Lispro 5 unit 01/25/22 07:30 01/27/22 07:30 Insulin Lispro 100 Unit/Ml SUB-Q 5 unit AC ALEXSANDRA Administration Midodrine 10 mg 01/12/22 09:03 01/27/22 08:38 Midodrine 10 Mg Tab PO 10 mg TID@0800,1200,1600 [facility] Administration Morphine Sulfate 2 mg 01/24/22 17:53 01/25/22 02:40 Morphine 2 Mg/1 Ml Inj IV 2 mg Q6H PRN Administration Pain, Moderate (4-6) Ondansetron HCl 4 mg 01/11/22 05:40 Ondansetron 4 Mg/2 Ml Inj IV Q8H PRN Nausea And Vomiting Oxycodone/Acetaminophen 1 tab 01/24/22 17:52 01/27/22 01:48 Oxycodone /Acetaminophen 5-325mg Tab PO 1 tab Q6H PRN Administration Pain, Moderate (4-6) Prazosin HCl 5 mg 01/15/22 22:00 01/27/22 08:39 Prazosin 5 Mg Cap PO 5 mg Q12HR ALEXSANDRA Administration Simple Syrup 15 ml 01/17/22 16:03 Simple Syrup 15 Ml FEEDTUBE PRN PRN Hypoglycemia Simple Syrup 30 ml 01/17/22 16:03 Simple Syrup 15 Ml FEEDTUBE PRN PRN Hypoglycemia Sodium Bicarbonate 325 mg 01/17/22 16:03 Sodium Bicarbonate 325 Mg Tab FEEDTUBE PRN PRN For Clogged Feeding Tube Sodium Chloride 10 ml 01/11/22 10:00 01/27/22 08:40 Sodium Chloride 0.9% 10 Ml Flush Syringe IV 10 ml BID ALEXSANDRA Administration Sodium Chloride 10 ml 01/11/22 05:40 Sodium Chloride 0.9% 10 Ml Flush Syringe IV PRN PRN LINE FLUSH Sodium Hypochlorite 1 applic 01/14/22 10:00 01/26/22 23:38 Sodium Hypochlorite, Dakin's 1/2 Strength (0.25%) 473 Ml Topical Soln TP 1 applicatio BID ALEXSANDRA Administration Zinc Sulfate 220 mg 01/19/22 22:00 01/27/22 08:39 Zinc Sulfate 220 Mg Cap PO 220 mg BID ALEXSANDRA Administration Nutrition/Malnutrition Assess - Dietary Evaluation Nutrition/Malnutrition Findings: Nutrition Notes Start: 01/12/22 13:45 Freq: Status: Active Protocol: Document 01/21/22 16:43 JARON (Rec: 01/21/22 17:02 JARON [id number]) Nutrition Notes Initial or Follow up Brief Note Current Diagnosis Acute Kidney Injury,CKD(stage I-IV),Decubitus(Pressure Ulcer ),Diabetes,Sepsis,Hypertension ,Stroke Other Pertinent Diagnosis CHF, Metabolic Encephalopathy, COVID-19, SIRS. Current Diet TF-Glucerna 1.2 Nicolas @ 75 ml/hr (since D 01/19). Height 5 ft 10 in Weight 56.69 kg Stewart Body Weight (kg) 75.45 BMI 17.9 Weight change and time frame No body weight change reported in 10 days Weight Status Underweight Subjective/Other Information RD consult for routine F/U on TF tolerance/continuation. TF continues as prescribed, no reports on tolerance available at the time, will assess at F/U. Pt is on Room Air, O2 saturation @ 100%, according to Physical Assessment History notes. Percent of energy/protein needs met: Prescribed TF-Glucerna 1.2 Nicolas @ 75 ml/hr provides for energy/protein needs (2,160 Kcal/108 g) during LOS, 95% Kcal; 100% AA. #2 Nutrition Diagnosis Malnutrition Diagnosis Progress(for reassessment Continues documentation) #1 Nutrition Diagnosis Swallowing difficulty Diagnosis Progress(for reassessment Continues documentation) Is patient on ventilator? No Is Patient Ambulatory and/or Out of Bed No REE-([place]-confined to bed) [phone] Kcal/Kg value to use for calculation 40 Approximate Energy Requirements Using 2268 kcal/Kg Calculation Used for Recommendations Kcal/kg Additional Notes Protein: 1.5-2 g/Kg IBW; 85- 113 g/day. Fluids: 1 ml/Kcal, or as per MD. Nutrition Intervention Nutrition Support: Continue TF-Glucerna 1.2 Nicolas @ 75 ml/hr. Flush: 120 ml water Q 4 hr, or as per MD. Kcal 2,160 Protein (gm) 108 Carbohydrates (gm) 206 Fat (gm) 108 Fluid (mL) 1,449 Fiber (gm) 29 % RDI: 95% Kcal; 100% AA. Goal #1 Provide at least 75% of energy /protein needs through Enteral Feeding during LOS. Follow-Up By: 01/28/22 Additional Comments Continue monitoring TF tolerance and BM.
[2022-01-27 10:02] LABS: Calcium 7.9 mg/dL (8.4-10.2)
[2022-01-27] MEDS ORDERED: SODIUM POLYSTYRENE 15 GM/60 ML ORAL LIQD PO SCH (10:30)
--- NOTE | 2022-01-27 10:33 | Progress Note ---
Assessment and Plan Cultures: MRSA nasal PCR: Positive 01/11/2022 blood culture: No growth 01/11/2022 urine culture: Enterobacter, Enterococcus (VRE - faecium) 01/14/2022 decubitus OR culture: Proteus mirabilis 01/15/2022 C. difficile PCR: Negative A/P: 66-year-old male with hypertension, CHF, diabetes, prior CVA, status post PEG tube, indwelling Vallecillo catheter, group home resident: #Severe sepsis: Multifactorial, likely secondary to UTI, infected sacral decubitus ulcer. UA showed significant pyuria. Blood cultures with no growth. #COVID-19: initial CXR without pneumonia. Weaned off oxygen. WBC 14.0, D-dimer 1089, CRP 15.8, procalcitonin 0.57, ferritin 693, LDH 336. C. difficile PCR: Negative #UTI: indwelling Vallecillo. UA with pyuria, culture with Enterobacter, Enterococcus #Necrotic sacral decubitus ulcer with eschar. Underwent debridement by Dr. Small on 01/14/2022. CT without any evidence of osteomyelitis. #Acute renal failure: renally adjust abx. Nephrology following, on HD. #Prior CVA, bedbound status with indwelling Vallecillo catheter, PEG tube #Acute encephalopathy: Admitted with severe hypernatremia. #Acute thrombocytopenia: monitor. #Protein calorie malnutrition Recs: -continue renally dosed IV cefepime, IV daptomycin due to VRE. Avoiding linezolid due to thrombocytopenia. -continue wound care and offloading. Surgery following, possible additional debridement vs BKA -Guarded prognosis Magen Asher MD [facility] ([facility] O: [phone] F: [phone] Subjective Date of service: 01/27/22 Principal diagnosis: MAURI Interval history: Afebrile, white count 13.8. Ongoing necrosis of his chronic wounds. Planning potential return to the OR Objective - Exam Narrative Exam: Physical exam deferred to reduce risk of transmission of COVID-19. Please refer to primary team's note. - Constitutional Vitals: Vital Signs Temp Pulse Resp BP Pulse Ox 98.2 F 82 18 125/51 96 01/26/22 23:30 01/27/22 00:00 01/26/22 23:30 01/26/22 23:52 01/26/22 23:30 Temperature -Last 24 Hours Temperature 98.2 F Temperature 98.5 F Temperature 97 F - Labs CBC & Chem 7: 01/26/22 04:16 01/27/22 08:44 Labs: Abnormal lab results 01/26/22 01/26/22 01/27/22 Range/Units 11:09 16:25 06:16 Potassium (3.6-5.0) mmol/L BUN (9-20) mg/dL Creatinine (0.8-1.3) mg/dL Glucose (75-100) mg/dL POC Glucose 162 H 109 H (70-105) mg/dL Calcium (8.4-10.2) mg/dL Total Creatine Kinase 25 L (55-170) units/L 01/27/22 01/27/22 Range/Units 06:25 08:44 Potassium 5.6 H (3.6-5.0) mmol/L BUN 59 H (9-20) mg/dL Creatinine 1.5 H (0.8-1.3) mg/dL Glucose 157 H (75-100) mg/dL POC Glucose 149 H (70-105) mg/dL Calcium 7.9 L (8.4-10.2) mg/dL Total Creatine Kinase (55-170) units/L
[2022-01-27] MEDS: SODIUM HYPOCHLORITE, DAKIN'S 1/2 STRENGTH (0.25%) 473 ML TOPICAL SOLN TP SCH ×2 (10:59→22:17)
[2022-01-27] MEDS: MORPHINE 2 MG/1 ML INJ IV PRN (12:27)
[2022-01-27] MEDS: HALOPERIDOL LACTATE 5 MG/1 ML INJ IM PRN ×2 (13:17→13:30)
--- NOTE | 2022-01-27 13:58 | Progress Note ---
Assessment and Plan Patient with continued signs of tissue necrosis in the sacrum and right heel ulcers. Posterior right leg ulcer is clean with beginning of granulation tissue. Would continue to hold Plavix another 5 days as patient will need to return to the OR for further debridement. Also of consideration is a BK amputation after vascular evaluation and a sigmoid end colostomy diversion to help with the wound care and the sacrum. Right posterior leg and ankle wounds evaluated continued signs of necrosis. Salvage of the limb is unlikely. Vascular evaluation for distal peripheral patient has been requested and is pending. 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 There is also significant risk for fecal soilage because of the proximity to the anus. Consider diversion. Finally patient with purulent drainage from Vallecillo catheter and Vallecillo to be changed. Significant amount of air also present in the bladder. May need to ask urology to assist in evaluation for colovesicular fistula. Consider retrograde cystogram. Plan to go to the OR tomorrow to debride the sacral decubitus and also to pritesh ride the right leg and heel. N.p.o. after midnight tonight. Subjective Date of service: 01/27/22 Narrative: Nursing reports difficulty keeping stool out of the sacral wound. They are currently doing Dakin soaks every 2 hours to accommodate frequent bowel movements. Patient may require a fecal diversion with an ileostomy or colos olvin. No comment from vascular surgery as to patient's perfusion of the right leg. Right leg amputation anticipated. Objective - Labs 01/26/22 04:16 01/27/22 08:44 Diabetes panel 01/27/22 Range/Units 08:44 Sodium 138 (137-145) mmol/L Potassium 5.6 H (3.6-5.0) mmol/L Chloride 106.7 (98-107) mmol/L Carbon Dioxide 22 (22-30) mmol/L BUN 59 H (9-20) mg/dL Creatinine 1.5 H (0.8-1.3) mg/dL Glucose 157 H (75-100) mg/dL Calcium 7.9 L (8.4-10.2) mg/dL Calcium panel 01/27/22 Range/Units 08:44 Calcium 7.9 L (8.4-10.2) mg/dL Pituitary panel 01/27/22 Range/Units 08:44 Sodium 138 (137-145) mmol/L Potassium 5.6 H (3.6-5.0) mmol/L Chloride 106.7 (98-107) mmol/L Carbon Dioxide 22 (22-30) mmol/L BUN 59 H (9-20) mg/dL Creatinine 1.5 H (0.8-1.3) mg/dL Glucose 157 H (75-100) mg/dL Calcium 7.9 L (8.4-10.2) mg/dL Adrenal panel 01/27/22 Range/Units 08:44 Sodium 138 (137-145) mmol/L Potassium 5.6 H (3.6-5.0) mmol/L Chloride 106.7 (98-107) mmol/L Carbon Dioxide 22 (22-30) mmol/L BUN 59 H (9-20) mg/dL Creatinine 1.5 H (0.8-1.3) mg/dL Glucose 157 H (75-100) mg/dL Calcium 7.9 L (8.4-10.2) mg/dL
[2022-01-27] MEDS ORDERED: ALPRAZolam 0.5 MG TAB PO PRN (14:54)
[2022-01-27] MEDS ORDERED: ALPRAZolam 1 MG TAB PO SCH (15:00)
[2022-01-28] MEDS: PRAZOSIN 5 MG CAP PO SCH ×3 (00:30→22:36)
[2022-01-28] MEDS: INSULIN LISPRO 100 UNIT/ML SUB-Q SCH ×7 (00:30→18:44)
[2022-01-28] MEDS: INSULIN GLARGINE 100 UNITS/ML SUB-Q SCH ×2 (00:30→22:53)
[2022-01-28] MEDS: FREE WATER PO SCH ×7 (02:05→22:40)
[2022-01-28 06:24] LABS: Hematocrit 23.6 % (35.5-45.6); Hemoglobin 7.6 gm/dl (11.8-15.2); Mean Corpuscular HGB Conc 32 % (32-34); Mean Corpuscular Volume 86 fl (84-94); Platelet Count 103 K/mm3 (140-440); Red Blood Count 2.74 M/mm3 (3.65-5.03); Red Cell Distribution Width 22.8 % (13.2-15.2)
[2022-01-28] MEDS: CEFEPIME/NS 2 GM/100 ML 2 GM/100 ML BAG IV SCH ×2 (06:50→18:41)
[2022-01-28] MEDS: SODIUM CHLORIDE 0.9% 1000 ML 1,000 ML IV SCH (06:50)
[2022-01-28 07:34] LABS: Total Cells Counted 100
[2022-01-28 07:36] LABS: Anisocytosis 2+
[2022-01-28 07:37] LABS: Hypochromasia 1+; Large Platelets Rare; Ovalocytes Rare; Platelet Estimate Consistent w Auto; Poikilocytosis 1+; Stomatocytes Rare; Target Cells Rare
[2022-01-28] MEDS: MORPHINE 2 MG/1 ML INJ IV PRN (08:18)
[2022-01-28] MEDS: MIDODRINE 10 MG TAB PO SCH ×3 (08:19→18:41)
--- NOTE | 2022-01-28 10:05 | Progress Note ---
Assessment and Plan Cultures: MRSA nasal PCR: Positive 01/11/2022 blood culture: No growth 01/11/2022 urine culture: Enterobacter, Enterococcus (VRE - faecium) 01/14/2022 decubitus OR culture: Proteus mirabilis 01/15/2022 C. difficile PCR: Negative A/P: 66-year-old male with hypertension, CHF, diabetes, prior CVA, status post PEG tube, indwelling Vallecillo catheter, residential resident: #Severe sepsis: Multifactorial, likely secondary to UTI, infected sacral decubitus ulcer. UA showed significant pyuria. Blood cultures with no growth. #COVID-19: initial CXR without pneumonia. Weaned off oxygen. WBC 14.0, D-dimer 1089, CRP 15.8, procalcitonin 0.57, ferritin 693, LDH 336. C. difficile PCR: Negative #UTI: indwelling Vallecillo. UA with pyuria, culture with Enterobacter, Enterococcus #Necrotic sacral decubitus ulcer with eschar. Underwent debridement by Dr. Small on 01/14/2022. CT without any evidence of osteomyelitis. #Acute renal failure: renally adjust abx. Nephrology following, on HD. #Prior CVA, bedbound status with indwelling Vallecillo catheter, PEG tube #Acute encephalopathy: Admitted with severe hypernatremia. #Acute thrombocytopenia: monitor. #Protein calorie malnutrition Recs: -continue renally dosed IV cefepime, IV daptomycin due to VRE. Avoiding linezolid due to thrombocytopenia. -continue wound care and offloading. Surgery following, possible additional debridement vs BKA -Guarded prognosis -pending repeat debridement Magen Asher MD [facility] ([facility] O: [phone] F: [phone] Subjective Date of service: 01/28/22 Principal diagnosis: MAURI Interval history: Afebrile, T-max 99.8, white count 14.7 which is approximately stable. No new issues. He is planned to go back to the OR today. Objective - Exam Narrative Exam: Physical exam deferred to reduce risk of transmission of COVID-19. Please refer to primary team's note. - Constitutional Vitals: Vital Signs Temp Pulse Resp BP Pulse Ox 98.8 F 95 H 14 112/56 96 01/28/22 06:56 01/28/22 06:56 01/28/22 08:35 01/28/22 06:56 01/28/22 08:35 Temperature -Last 24 Hours Temperature 98.8 F Temperature 99.8 F Temperature 98 F - Labs CBC & Chem 7: 01/28/22 05:56 01/27/22 08:44 Labs: Abnormal lab results 01/27/22 01/28/22 01/28/22 Range/Units 23:58 05:37 05:56 WBC 14.7 H (4.5-11.0) K/mm3 RBC 2.74 L (3.65-5.03) M/mm3 Hgb 7.6 L (11.8-15.2) gm/dl Hct 23.6 L (35.5-45.6) % RDW 22.8 H (13.2-15.2) % Plt Count 103 L (140-440) K/mm3 Seg Neuts % (Manual) 90.0 H (40.0-70.0) % Lymphocytes % (Manual) 3.0 L (13.4-35.0) % Basophils % (Manual) 2.0 H (0.0-1.8) % Seg Neutrophils # Man 13.2 H (1.8-7.7) K/mm3 Lymphocytes # (Manual) 0.4 L (1.2-5.4) K/mm3 Basophils # (Manual) 0.3 H (0.0-0.1) K/mm3 POC Glucose 170 H 157 H (70-105) mg/dL
--- NOTE | 2022-01-28 10:54 | Progress Note ---
Assessment and Plan Assessment and Plan Acute metabolic encephalopathy MAURI (acute kidney injury) Hypertension Congestive heart failure Diabetes Hypernatremia SIRS (systemic inflammatory response syndrome COVID-positive Hyperkalemia Plan: Renal function reviewed, SCr level was 1.4 today, yesterday's SCr level was 1.5 No need for HD S/p vas cath removal on 01/24/22 Monitor need for blood transfusion Renal US was negative for obstruction Renally dose medications Strict I&O's daily Intake= 2100 ml Output= 2800 ml (Net= -700 ml) Renal plan reviewed by Dr Nava Subjective Date of service: 01/28/22 Principal diagnosis: MAURI Interval history: Labs reviewed Pt on isolation for covid-19, reviewed medical chart, labs, and notes Objective - Vital Signs Vital signs: Vital Signs - 12hr 01/28/22 01/28/22 01/28/22 00:00 06:56 08:35 Temperature 98.8 F Pulse Rate 99 H 95 H Respiratory 20 14 Rate Blood Pressure 112/56 [Left] O2 Sat by Pulse 98 96 Oximetry - Lab 01/28/22 05:56 01/28/22 09:32 Most recent lab results Calcium 8.0 mg/dL (8.4-10.2) L 01/28/22 09:32 Phosphorus 3.60 mg/dL (2.5-4.5) 01/17/22 07:06 Magnesium 2.30 mg/dL (1.7-2.3) 01/25/22 05:50 Urine Creatinine 61.8 mg/dL (0.1-20.0) H 01/20/22 17:30 Urine Sodium 58 mmol/L 01/12/22 11:44 Medications & Allergies - Medications Allergies/Adverse Reactions: Allergies heparin Allergy (Verified 01/19/22 10:43) Unknown Home Medications: Home Medications Medication Instructions Recorded Confirmed Last Taken Type cephALEXin [Keflex] 500 mg PO Q6HR 7 Days #28 capsule 12/09/21 01/14/22 Unknown Rx Aspirin [Cardwell Aspirin EC] 81 mg PO QDAY 12/14/21 01/14/22 Unknown History Atorvastatin [Lipitor] 80 mg PO QHS 12/14/21 01/14/22 Unknown History Dapagliflozin Propanediol [Farxiga] 10 mg PO QDAY 12/14/21 01/14/22 Unknown History Insulin Detemir [Levemir VIAL] 25 unit SQ QHS 12/14/21 01/14/22 Unknown History Insulin Lispro [Admelog] 100 unit SQ ACHS 12/14/21 01/14/22 Unknown History Tamsulosin [Flomax] 0.4 mg PO QDAY 12/14/21 01/14/22 Unknown History carvediloL [Coreg] 3.125 mg PO BID 12/14/21 01/14/22 Unknown History Clopidogrel [Plavix] 75 mg PO QDAY tablet 12/27/21 01/14/22 Unknown Rx Sertraline [Zoloft] 100 mg PO QDAY #30 12/27/21 01/14/22 Unknown Rx Simple Syrup 15 ml FEEDTUBE PRN PRN oral.liqd 12/27/21 01/14/22 Unknown Rx Simple Syrup 30 ml FEEDTUBE PRN PRN oral.liqd 12/27/21 01/14/22 Unknown Rx Sodium Bicarbonate 325 mg FEEDTUBE PRN PRN #30 tablet 12/27/21 01/14/22 Unknown Rx Torsemide [Demadex] 20 mg PO QDAY #30 12/27/21 01/14/22 Unknown Rx Active Medications: Generic Name Dose Route Start Last Admin Trade Name Freq PRN Reason Stop Dose Admin Acetaminophen 650 mg 01/11/22 05:40 01/25/22 22:09 Acetaminophen 325 Mg Tab PO 650 mg Q4H PRN Administration Pain MILD(1-3)/Fever >100.5/ROGERS Albuterol 2.5 mg 01/11/22 05:40 Albuterol 2.5 Mg/3 Ml Nebu IH Q3HRT PRN Shortness Of Breath Alprazolam 0.5 mg 01/27/22 14:54 Alprazolam 0.5 Mg Tab PO Q8H PRN Anxiety Lipase/Protease/Amylase 1 each 01/17/22 16:03 Lipase 10,500/Protease 25,000/Amylase 43,750 (Units) Dr Mariee FEEDTUBE PRN PRN For Clogged Feeding Tube Ascorbic Acid 1,000 mg 01/19/22 22:00 01/27/22 22:16 Ascorbic Acid 500 Mg Tab PO 1,000 mg BID ALEXSANDRA Administration Aspirin 81 mg 01/13/22 11:00 01/27/22 10:51 Aspirin 81 Mg Tab Chew FEEDTUBE Not Given QDAY ALEXSANDRA Atorvastatin Calcium 80 mg 01/11/22 22:00 01/27/22 22:16 Atorvastatin 40 Mg Tab PO 80 mg QHS ALEXSANDRA Administration Cholecalciferol 5,000 unit 01/20/22 10:00 01/27/22 10:51 Cholecalciferol (Vit D3) 5,000 Unit Tab PO Not Given DAILY ALEXSANDRA Dextrose 50 ml 01/11/22 05:40 Dextrose 50% In Water (25gm) 50 Ml Syringe IV Q30MIN PRN Hypoglycemia Protocol Famotidine 10 mg 01/13/22 11:00 01/27/22 22:16 Famotidine 10 Mg Tab FEEDTUBE 10 mg BID ALEXSANDRA Administration Haloperidol Lactate 5 mg 01/27/22 12:08 01/27/22 13:30 Haloperidol Lactate 5 Mg/1 Ml Inj IM 5 mg Q6H PRN Administration Agitation Hydralazine HCl 10 mg 01/11/22 05:54 Hydralazine 20 Mg/1 Ml Inj IV Q6H PRN Blood Pressure Cefepime HCl 2 gm in 100 mls @ 200 mls/hr 01/26/22 18:00 01/28/22 06:50 Cefepime/Ns 2 Gm/100 Ml IV 200 mls/hr Q12H ALEXSANDRA Administration Protocol Sodium Chloride 1,000 mls @ 75 mls/hr 01/28/22 05:30 01/28/22 06:50 Nacl 0.9% 1000 Ml IV 75 mls/hr DIRECT ALEXSANDRA Administration Daptomycin 300 mg/ Sodium 100 mls @ 200 mls/hr 01/28/22 12:00 Chloride IV Q24H ALEXSANDRA Protocol Insulin Glargine 15 units 01/18/22 22:00 01/28/22 00:30 Insulin Glargine 100 Units/Ml SUB-Q 15 units HS ALEXSANDRA Administration Insulin Human Lispro 0 unit 01/11/22 06:00 01/28/22 06:01 Insulin Lispro 100 Unit/Ml SUB-Q Not Given Q6HR ALEXSANDRA Protocol Insulin Human Lispro 5 unit 01/25/22 07:30 01/28/22 08:26 Insulin Lispro 100 Unit/Ml SUB-Q Not Given AC ALEXSANDRA Midodrine 10 mg 01/12/22 09:03 01/28/22 08:19 Midodrine 10 Mg Tab PO 10 mg TID@0800,1200,1600 ALEXSANDRA Administration Morphine Sulfate 2 mg 01/24/22 17:53 01/28/22 08:18 Morphine 2 Mg/1 Ml Inj IV 2 mg Q6H PRN Administration Pain, Moderate (4-6) Ondansetron HCl 4 mg 01/11/22 05:40 Ondansetron 4 Mg/2 Ml Inj IV Q8H PRN Nausea And Vomiting Oxycodone/Acetaminophen 1 tab 01/24/22 17:52 01/27/22 01:48 Oxycodone /Acetaminophen 5-325mg Tab PO 1 tab Q6H PRN Administration Pain, Moderate (4-6) Prazosin HCl 5 mg 01/15/22 22:00 01/28/22 00:30 Prazosin 5 Mg Cap PO 5 mg Q12HR ALEXSANDRA Administration Simple Syrup 15 ml 01/17/22 16:03 Simple Syrup 15 Ml FEEDTUBE PRN PRN Hypoglycemia Simple Syrup 30 ml 01/17/22 16:03 Simple Syrup 15 Ml FEEDTUBE PRN PRN Hypoglycemia Sodium Bicarbonate 325 mg 01/17/22 16:03 Sodium Bicarbonate 325 Mg Tab FEEDTUBE PRN PRN For Clogged Feeding Tube Sodium Chloride 10 ml 01/11/22 10:00 01/28/22 00:31 Sodium Chloride 0.9% 10 Ml Flush Syringe IV 10 ml BID ALEXSANDRA Administration Sodium Chloride 10 ml 01/11/22 05:40 Sodium Chloride 0.9% 10 Ml Flush Syringe IV PRN PRN LINE FLUSH Sodium Hypochlorite 1 applic 01/14/22 10:00 01/27/22 22:17 Sodium Hypochlorite, Dakin's 1/2 Strength (0.25%) 473 Ml Topical Soln TP 1 applicatio BID ALEXSANDRA Administration Zinc Sulfate 220 mg 01/19/22 22:00 01/27/22 22:16 Zinc Sulfate 220 Mg Cap PO 220 mg BID ALEXSANDRA Administration
[2022-01-28] MEDS: FAMOTIDINE 10 MG TAB FEEDTUBE SCH ×2 (12:08→22:35)
[2022-01-28] MEDS: ASCORBIC ACID 500 MG TAB PO SCH ×2 (12:09→22:36)
[2022-01-28] MEDS: CHOLECALCIFEROL (VIT D3) 5,000 UNIT TAB PO SCH (12:09)
[2022-01-28] MEDS: ZINC SULFATE 220 MG CAP PO SCH ×2 (12:09→22:36)
[2022-01-28] MEDS: ASPIRIN 81 MG TAB CHEW FEEDTUBE SCH (12:10)
--- NOTE | 2022-01-28 12:27 | Vascular Lab Report ---
DUPLEX DOPPLER LOWER EXTREMITY ARTERIAL, BILATERAL INDICATION / CLINICAL INFORMATION: PVD with ulcerations eval arterial flow. TECHNIQUE: Arterial duplex examination of both lower extremities performed using B-mode, color flow a nd spectral Doppler assessment. FINDINGS: RIGHT: Common Femoral Artery: PSV 72 cm/sec. Triphasic waveform. Proximal SFA: PSV 101 cm/sec. Biphasic waveform. Mid SFA: PSV 89 cm/sec. Triphasic waveform. Distal SFA: PSV 193 cm/sec. Triphasic waveform. Popliteal Artery: PSV 126 cm/sec. Biphasic waveform. Posterior Tibial Artery: PSV 9 cm/sec. Monophasic waveform. Dorsalis Pedis Artery: PSV 30 cm/sec. Monophasic waveform. LEFT: Common Femoral Artery: PSV 69 cm/sec. Triphasic waveform. Proximal SFA: PSV 86 cm/sec. Triphasic waveform. Mid SFA: PSV 75 cm/sec. Triphasic waveform. Distal SFA: PSV 85 cm/sec. Monophasic waveform. Popliteal Artery: PSV 48 cm/sec. Monophasic waveform. Posterior Tibial Artery: PSV 17 cm/sec. Monophasic waveform. Dorsalis Pedis Artery: PSV 59 cm/sec. Monophasic waveform. ADDITIONAL FINDINGS: None. RIGHT JOSELIN: Not calculated. LEFT JOSELIN: Not calculated. IMPRESSION: 1. Multifocal atherosclerotic disease is present throughout both lower extremities. 2. Elevated velocity within the right distal femoral artery with transition to biphasic and monophasi c waveforms distally suggests hemodynamically significant stenosis. Dampened velocity is noted in the posterior tibial artery. 3. Transition to abnormal monophasic waveforms noted on the left likely secondary to multifocal ather osclerosis and moderate narrowing. No significant focal velocity change. Ankle-Brachial Index (JOSELIN): - Calcified arteries > 1.4 - Normal = 0.9-1.4 - Mild PAD = 0.7-0.89 - Moderate PAD = 0.51-0.69 - Severe PAD < 0.5 Doppler Waveform: - Triphasic is normal. - Biphasic is abnormal if clear transition from triphasic signal along vascular tree. - Monophasic is abnormal. Scribed by: Belkys Newman RDMS, MARZENA, CIARAN Scribed: 01/26/2022 11:03 AM I have reviewed the images, agree with this report, and edited this report as needed. Signer Name: Cullen Rodriguez MD Signed: 01/26/2022 1:05 PM Workstation Name: [id number]
[2022-01-28] MEDS: SODIUM HYPOCHLORITE, DAKIN'S 1/2 STRENGTH (0.25%) 473 ML TOPICAL SOLN TP SCH ×2 (12:49→22:39)
[2022-01-28] MEDS: HALOPERIDOL LACTATE 5 MG/1 ML INJ IM PRN (12:50)
--- NOTE | 2022-01-28 15:50 | Progress Note ---
Assessment and Plan Assessment and plan: This is a 66-year-old male with known past medical history of hypertension, CVA, CHF, DM, dysphagia s/p PEGtube placement admitted for sepsis and MAURI Assessment and Plan; --Hyperkalemia --surgical debridement of decubitus ulcer sacrum, left heel 01/23/2022 Patient tolerated the procedure well Surgery recommended to DC Plavix for 5 days Postop care, pain medications #Acute Metabolic Encephalopathy - Multifactorial: probably due to azotemia vs hypernatremia, vs infectious process - on Continous IVF hydration and empiric IV abx - Mentation with mild improvement, following simple commands - CT head no changes - Frequent reorientation - Avoid sedatives agents - Maintenance of sleep-wake cycle #Hypotension 2/ #Sepsis Vs hypovolemia #H/o Congestive Heart Failure(CHF) - Presented with tachycardia and hypotension - Patient remains hypotension this am, was febrile overnight and worsen leukocyt osis this am - 12/14/21 Ech reviewed EF 45-50%, patient appear hypovolemic and dry - Continue IVF hydration per Nephro - Hold home antihypertensive agents - Midodrine added - cont. IVF, increased free water with TF for hypernatremia - Continue blood pressure monitor per protocol - Maintain MAP above 65 - Strict intake and output and daily weight #Acute Kidney Injury(MAURI) most likely ATN, placed on HD #Hypernatremia #Hyperkalemia, resolved # hypokalemia - probably due to hypotension/hypovelemia - Per record Scr. was 1.2 from last admit on 12/2021 - Scr. as high as 5.9, BUN 111 - s/p X1 dose of kayexalate, FWF for hypernatremia - Nephrology on consult, appreciated recommendation - no hydronephrosis on renal US - Strict intake and output - Avoid nephrotoxic medications; Renally dose medications - Vallecillo in place, initiated on HD 01/14 - replete electrolytes as needed #Severe Sepsis- multifactorial #Acute cystitis/UTI/VRE UTI # Positive Covid 19 #Infected Sacral Decubitis Ulcer/Proteus mirabilis #Leukocytosis #Lactic Acidosis - Presented with tachycardia and hypotension - Patient remains hypotension this am, was febrile overnight and worsen leukocytosis this am - Cultures pending, MRSA PCR positive - With multiple wounds, including malodourous, unstageable sacral decubitis. -Patient is on cefepime and daptomycin per ID - General Surgery consulted for possible debridement, wound care eval and treat - Wound care also consulted #Dysphagia s/p PEGtube Placement - Nutrition consulted - Initiated enteral nutrition #Thrombocytopenia - Presented with low plt - Plt count worsen this am - no s/s of any active bleeding - Will hold AC- heparin SubQ for now - H&H stable - HIT panel ordered #Type 2 Diabetes with Hyperglycemia - Continue BG and SSI Q6hrs - Lantus added qHs - While critically ill target blood glucose of 140-180 #GI/DVT Prophylaxis - PPI- Pepcid - SCDs to bilateral lower extremities while in bed Consults and recommendations noted and appreciated Closely monitor the patient and adjust management as needed Plan of care reviewed with patient and his nurse DC planning per case management/SNF placement COVID-19 PCR positive Rapid PCR test negative C. difficile negative Home O2 evaluation prior to discharge Continue current management Hospital Course to Date: 01/12: Patient remains encephalopathic but more awake, following simple commands. Still hypotensive this am, probable sepsis. Febrile overnight with worsening leukocytosis this am. Cultures are pending. Continue IVF hydration and empiric IV abx. Multiple wounds, including unstageable sacral decub and MRSA PCR positive. IV Vanco was also initiated, renal dose per pharmacy. ID consulted. Midodrine also added TID. General surgery and wound care was also consulted for wounds eval and treatment. Worsening renal function with hypernatremia and hyperkalemia also noted, continue IVF hydration per nephro. Worsening thromboc ytopenia also noted, no s/s of any active bleeding. H&H stable. Hold AC for now, HIT panel ordered. Lantus qhs added for hyperglycemia, continue BG and SSI Q6hrs 01/13: Patient tolerating tube feeds via PEG, unsure why the patient who had a PEG got so dehydrated at the facility, it appears he was tolerating some PO and as a result PEG was not in use at the facility. He is for debridement tomorrow, will continue free water flushes-150CC Q6 Considering he is on HD, will reassess and stop tomorrow if improved, Keep NPO after Midnight Continue abx therapy, Mental status improving some Discharge planning when stable 01/14/ Na level improving, Cr stable after HD x2, cont iv fluid, follow renal jadiel mmendation, pending surgical eval for decubitus ulcer 01/15: Plan to hold hemodialysis today, creatinine IVF/stable. Status post bedside debridement of the decubitus ulcer by general surgery. Patient need deep debridement which is planned for tomorrow. N.p.o. after midnight. Continue to follow BMP 01/16: Positive for COVID-19, moved to COVID floor. We will continue to follow inflammatory markers. cancelled deep debridement at the protocols today. We will continue to follow. Not a candidate for remdesivir due to renal failure, oxygen requirement has not changed, will hold dexamethasone. Continue to follow 01/17: BP remains very soft today, will initiate IV fluid, continue to monitor cl inically. Monitor renal function and inflammatory markers. add long acting insulin for hyperglycemia 01/18: K 2.8 today, cont to replete, ordered CT head worsening encephalopathy, cont restrain. Patient remians confused, follow inflammatory markers. follow BMP 01/19: patient on RA, remains confused. Na 150 today, changed iv fluid to D5w and increased free water with TF. follow inflammatory markers. D-dimer >1000, will change heparin to eliquis 2.[address] head w/o any changes 01/21/22; severe sepsis currently patient is on cefepime and daptomycin per ID Sacral decubitus ulcer, surgery following, awaiting debridement 7 days after COVID is positive for OR protocols 01/22/22 possible decubitus ulcer debridement tomorrow per surgery Patient is n.p.o. status from midnight 01/23; patient is scheduled for surgical debridement of decubitus ulcers 01/24; status post surgical debridement of decubitus ulcer, Plavix held for 5 days per surgeon Continue postop care 01/25 patient's hemoglobin dropped to 7.3, transfuse 1 unit PRBC Continue postop care, vital signs noted 01/26; Hb increased to 7.8, continue current management Patient VRE UTI, cefepime and daptomycin 01/27; hyperkalemia potassium 5.5, Kayexalate closely monitor electrolytes Try to adjust pain medications, sedation to keep patient comfortable Surgery and ID evaluations and recommendations appreciated 01/28/2022; surgeon planning surgical procedure tomorrow Patient is n.p.o. from midnight Consults and recommendations noted History Interval history: Have seen and examined the patient at the bedside patient's chart and medications reviewed Patient is confused groaning and moaning Nurse reported patient has been continuously confused and restless Vital signs noted Hospitalist Physical - Constitutional Vitals: Temp Pulse Resp BP Pulse Ox 98.9 F 91 H 20 127/61 96 01/28/22 11:46 01/28/22 11:46 01/28/22 11:46 01/28/22 11:46 01/28/22 15:21 General appearance: Present: no acute distress, cachectic, other (Responding to simple questions appropriately) - EENT Eyes: Present: PERRL, EOM intact - Neck Neck: Present: supple, normal ROM - Respiratory Respiratory effort: normal Respiratory: bilateral: diminished, negative: rales, rhonchi, wheezing - Cardiovascular Rhythm: regular Heart Sounds: Present: S1 & S2 - Extremities Extremities: No edema, abnormal (Heel dressing in place) - Abdominal General gastrointestinal: soft, non-tender, non-distended, normal bowel sounds - Integumentary Integumentary: Present: clear, warm - Psychiatric Psychiatric: agitated, other (Confused) - Neurologic Neurologic: moves all extremities, other (Confused) Results - Labs CBC & Chem 7: 01/28/22 05:56 01/28/22 09:32 Labs: Laboratory Last Values WBC 14.7 K/mm3 (4.5-11.0) H 01/28/22 05:56 RBC 2.74 M/mm3 (3.65-5.03) L 01/28/22 05:56 Hgb 7.6 gm/dl (11.8-15.2) L 01/28/22 05:56 Hct 23.6 % (35.5-45.6) L 01/28/22 05:56 MCV 86 fl (84-94) 01/28/22 05:56 MCH 28 pg (28-32) 01/28/22 05:56 MCHC 32 % (32-34) 01/28/22 05:56 RDW 22.8 % (13.2-15.2) H 01/28/22 05:56 Plt Count 103 K/mm3 (140-440) L 01/28/22 05:56 [place] % (Auto) 4.2 % (0.0-7.3) 01/17/22 07:06 Eos % (Auto) 1.0 % (0.0-4.3) 01/17/22 07:06 [place] # (Auto) 0.5 K/mm3 (0.0-0.8) 01/17/22 07:06 Eos # (Auto) 0.1 K/mm3 (0.0-0.4) 01/17/22 07:06 Baso # (Auto) 0.1 K/mm3 (0.0-0.1) 01/17/22 07:06 Add Manual Diff Complete 01/28/22 05:56 Total Counted 100 01/28/22 05:56 Seg Neutrophils % Health Advisor 01/17/22 07:06 Seg Neuts % (Manual) 90.0 % (40.0-70.0) H 01/28/22 05:56 Band Neutrophils % 0 % 01/28/22 05:56 Lymphocytes % (Manual) 3.0 % (13.4-35.0) L 01/28/22 05:56 Reactive Lymphs % (Man) 0 % 01/28/22 05:56 Monocytes % (Manual) 2.0 % (0.0-7.3) 01/28/22 05:56 Eosinophils % (Manual) 2.0 % (0.0-4.3) 01/28/22 05:56 Basophils % (Manual) 2.0 % (0.0-1.8) H 01/28/22 05:56 Metamyelocytes % 1.0 % 01/28/22 05:56 Myelocytes % 0 % 01/28/22 05:56 Promyelocytes % 0 % 01/28/22 05:56 Blast Cells % 0 % 01/28/22 05:56 Nucleated RBC % Not Reportable 01/28/22 05:56 Seg Neutrophils # 11.3 K/mm3 (1.8-7.7) H 01/17/22 07:06 Seg Neutrophils # Man 13.2 K/mm3 (1.8-7.7) H 01/28/22 05:56 Band Neutrophils # 0.0 K/mm3 01/28/22 05:56 Lymphocytes # (Manual) 0.4 K/mm3 (1.2-5.4) L 01/28/22 05:56 Abs React Lymphs (Man) 0.0 K/mm3 01/28/22 05:56 Monocytes # (Manual) 0.3 K/mm3 (0.0-0.8) 01/28/22 05:56 Eosinophils # (Manual) 0.3 K/mm3 (0.0-0.4) 01/28/22 05:56 Basophils # (Manual) 0.3 K/mm3 (0.0-0.1) H 01/28/22 05:56 Metamyelocytes # 0.1 K/mm3 01/28/22 05:56 Myelocytes # 0.0 K/mm3 01/28/22 05:56 Promyelocytes # 0.0 K/mm3 01/28/22 05:56 Blast Cells # 0.0 K/mm3 01/28/22 05:56 WBC Morphology Not Reportable 01/28/22 05:56 Hypersegmented Neuts Not Reportable 01/28/22 05:56 Hyposegmented Neuts Not Reportable 01/28/22 05:56 Hypogranular Neuts Not Reportable 01/28/22 05:56 Smudge Cells Not Reportable 01/28/22 05:56 Toxic Granulation Not Reportable 01/28/22 05:56 Toxic Vacuolation Not Reportable 01/28/22 05:56 Dohle Bodies Not Reportable 01/28/22 05:56 Pelger-Huet Anomaly Not Reportable 01/28/22 05:56 Sarah Rods Not Reportable 01/28/22 05:56 Platelet Estimate Consistent w auto 01/28/22 05:56 Clumped Platelets Not Reportable 01/28/22 05:56 Plt Clumps, EDTA Not Reportable 01/28/22 05:56 Large Platelets Rare 01/28/22 05:56 Giant Platelets Not Reportable 01/28/22 05:56 Platelet Satelliting Not Reportable 01/28/22 05:56 Plt Morphology Comment Not Reportable 01/28/22 05:56 RBC Morphology Not Reportable 01/28/22 05:56 Dimorphic RBCs Not Reportable 01/28/22 05:56 Polychromasia Not Reportable 01/28/22 05:56 Hypochromasia 1+ 01/28/22 05:56 Poikilocytosis 1+ 01/28/22 05:56 Anisocytosis 2+ 01/28/22 05:56 Microcytosis 2+ 01/28/22 05:56 Macrocytosis Not Reportable 01/28/22 05:56 Spherocytes Not Reportable 01/28/22 05:56 Pappenheimer Bodies Not Reportable 01/28/22 05:56 Sickle Cells Not Reportable 01/28/22 05:56 Target Cells Rare 01/28/22 05:56 Tear Drop Cells Not Reportable 01/28/22 05:56 Ovalocytes Rare 01/28/22 05:56 Stomatocytes Rare 01/28/22 05:56 Helmet Cells Not Reportable 01/28/22 05:56 Greer-Mershon Bodies Not Reportable 01/28/22 05:56 [place] Rings Not Reportable 01/28/22 05:56 Kwabena Cells Not Reportable 01/28/22 05:56 Bite Cells Not Reportable 01/28/22 05:56 Crenated Cell Not Reportable 01/28/22 05:56 Elliptocytes Rare 01/28/22 05:56 Acanthocytes (Spur) Not Reportable 01/28/22 05:56 Rouleaux Not Reportable 01/28/22 05:56 Hemoglobin C Crystals Not Reportable 01/28/22 05:56 Schistocytes Not Reportable 01/28/22 05:56 Malaria parasites Not Reportable 01/28/22 05:56 Jigar Bodies Not Reportable 01/28/22 05:56 Hem Pathologist Commnt No 01/28/22 05:56 D-Dimer 940.59 ng/mlDDU (0-234) H 01/20/22 04:39 Heparin Anti-Xa, Unfract Negative (Negative) 01/13/22 04:56 Sodium 140 mmol/L (137-145) 01/28/22 09:32 Potassium 4.8 mmol/L (3.6-5.0) 01/28/22 09:32 Chloride 106.6 mmol/L (98-107) 01/28/22 09:32 Carbon Dioxide 24 mmol/L (22-30) 01/28/22 09:32 Anion Gap 14 mmol/L 01/28/22 09:32 BUN 54 mg/dL (9-20) H 01/28/22 09:32 Creatinine 1.4 mg/dL (0.8-1.3) H 01/28/22 09:32 Estimated GFR 51 ml/min 01/28/22 09:32 BUN/Creatinine Ratio 39 % 01/28/22 09:32 Glucose 151 mg/dL (75-100) H 01/28/22 09:32 POC Glucose 134 mg/dL (70-105) H 01/28/22 11:43 Lactic Acid 1.70 mmol/L (0.7-2.0) 01/13/22 04:56 Calcium 8.0 mg/dL (8.4-10.2) L 01/28/22 09:32 Phosphorus 3.60 mg/dL (2.5-4.5) 01/17/22 07:06 Magnesium 2.30 mg/dL (1.7-2.3) 01/25/22 05:50 Ferritin 560.7 ng/mL (30.0-300.0) H 01/20/22 04:39 Total Bilirubin 0.60 mg/dL (0.1-1.2) 01/11/22 03:08 Direct Bilirubin 0.3 mg/dL (0-0.2) H 01/11/22 03:08 Indirect Bilirubin 0.3 mg/dL 01/11/22 03:08 AST 45 units/L (5-40) H 01/11/22 03:08 ALT 29 units/L (7-56) 01/11/22 03:08 Alkaline Phosphatase 180 units/L (35-129) H 01/11/22 03:08 Lactate Dehydrogenase 334 units/L (91-180) H 01/20/22 04:39 Total Creatine Kinase 25 units/L (55-170) L 01/27/22 06:16 C-Reactive Protein 3.10 mg/dL (0.00-1.30) H 01/22/22 06:10 Serum Total Protein 5.4 g/dL (6.1-8.1) L 01/15/22 08:41 Total Protein 7.3 g/dL (6.3-8.2) 01/11/22 03:08 Albumin 2.0 g/dL (3.8-4.8) L 01/15/22 08:41 Albumin/Globulin Ratio 0.5 % 01/11/22 03:08 Ypteq-1-Mirgmbuib 0.5 g/dL (0.2-0.3) H 01/15/22 08:41 Xxwfz-6-Mtcwjzjgg 0.9 g/dL (0.5-0.9) 01/15/22 08:41 Beta Globulins 0.6 g/dL (0.2-0.5) H 01/15/22 08:41 Gamma Globulins 1.2 g/dL (0.8-1.7) 01/15/22 08:41 Abnorm Protein Band 1 see below 01/15/22 08:41 PEP Interpretation see below H 01/15/22 08:41 Serotonin Release Assay See scanned result 01/13/22 04:56 Procalcitonin 0.74 ng/mL (<0.15) 01/20/22 04:39 Urine Color Claudia (Yellow) 01/12/22 11:44 Urine Turbidity Cloudy (Clear) 01/12/22 11:44 Urine pH 5.0 (5.0-7.0) 01/12/22 11:44 Ur Specific [place] 1.030 (1.003-1.030) 01/12/22 11:44 Urine Protein 30 mg/dl mg/dL (Negative) 01/12/22 11:44 Urine Glucose (UA) Negative mg/dL (Negative) 01/12/22 11:44 Urine Ketones Negative mg/dL (Negative) 01/12/22 11:44 Urine Blood Moderate (Negative) A 01/12/22 11:44 Urine Nitrite Negative (Negative) 01/12/22 11:44 Ur Reducing Substances Not Reportable 01/12/22 11:44 Urine Bilirubin Negative (Negative) 01/12/22 11:44 Urine Ictotest Not Reportable 01/12/22 11:44 Urine Urobilinogen 0.0 mg/dL (<2.0) 01/12/22 11:44 Ur Leukocyte Esterase Trace (Negative) 01/12/22 11:44 Urine WBC (Auto) > 182.0 /HPF (0.0-6.0) H 01/12/22 11:44 Urine RBC (Auto) 12.0 /HPF (0.0-6.0) 01/12/22 11:44 Urine Bacteria (Auto) 2+ /HPF (Negative) 01/12/22 11:44 Urine WBC Clumps 3+ /HPF 01/11/22 07:14 Urine Mucus Few /HPF 01/12/22 11:44 Urine Total Volume 1700 ml 01/20/22 17:30 Urine Creatinine 61.8 mg/dL (0.1-20.0) H 01/20/22 17:30 Height (in) 70.0 inches 01/20/22 17:30 Weight (lb) 124.7 lbs 01/20/22 17:30 Creatinine Clearance 28 01/20/22 17:30 Urine Sodium 58 mmol/L 01/12/22 11:44 Nasal Screen MRSA (PCR) Positive (Negative) 01/12/22 Unknown Random Vancomycin 10.3 ug/mL (0-40.0) 01/18/22 07:50 KAMILLA Screen Negative (Negative) 01/14/22 05:47 Proteinase 3 (PR3) Ab <1.0 AI (<1.0) 01/13/22 18:40 Myeloperoxidase Ab <1.0 AI (<1.0) 01/13/22 18:40 Heparin-induced Plt Ab Positive (Negative) H 01/13/22 04:56 UF Heparin High Dose 3 % Release 01/13/22 04:56 BRYCE UFH Low Dose 0.1 4 % Release 01/13/22 04:56 BRYCE UFH Low Dose 0.5 5 % Release 01/13/22 04:56 Complement C3 203 mg/dL (82-185) H 01/15/22 08:41 Complement C4 52 mg/dL (15-53) 01/15/22 08:41 C. difficile Tox (PCR) Negative (Negative) 01/15/22 11:32 Coronavirus (PCR) Positive (Negative) A 01/15/22 10:30 SARS-CoV-2 (PCR) Negative (Negative) 01/22/22 10:30 Hepatitis A IgM Ab Non-reactive (NonReactive) 01/13/22 18:40 Hep Bs Antigen Non-reactive (Negative) 01/13/22 18:40 Hep B Core IgM Ab Non-reactive (NonReactive) 01/13/22 18:40 Hepatitis C Antibody Non-reactive (NonReactive) 01/13/22 18:40 Miscellaneous Test Flexitest 1 H 01/13/22 18:40 Blood Type A POSITIVE 01/28/22 09:32 Antibody Screen Negative 01/28/22 09:32 Crossmatch See Detail 01/24/22 06:50 [place]/IV: Voiding Method Indwelling Catheter Active Medications - Current Medications Current Medications: Generic Name Dose Route Start Last Admin Trade Name Freq PRN Reason Stop Dose Admin Acetaminophen 650 mg 01/11/22 05:40 01/25/22 22:09 Acetaminophen 325 Mg Tab PO 650 mg Q4H PRN Administration Pain MILD(1-3)/Fever >100.5/ROGERS Albuterol 2.5 mg 01/11/22 05:40 Albuterol 2.5 Mg/3 Ml Nebu IH Q3HRT PRN Shortness Of Breath Alprazolam 0.5 mg 01/27/22 14:54 Alprazolam 0.5 Mg Tab PO Q8H PRN Anxiety Lipase/Protease/Amylase 1 each 01/17/22 16:03 Lipase 10,500/Protease 25,000/Amylase 43,750 (Units) Dr Mariee FEEDTUBE PRN PRN For Clogged Feeding Tube Ascorbic Acid 1,000 mg 01/19/22 22:00 01/28/22 12:09 Ascorbic Acid 500 Mg Tab PO Not Given BID ALEXSANDRA Aspirin 81 mg 01/13/22 11:00 01/28/22 12:10 Aspirin 81 Mg Tab Chew FEEDTUBE Not Given QDAY ALEXSANDRA Atorvastatin Calcium 80 mg 01/11/22 22:00 01/27/22 22:16 Atorvastatin 40 Mg Tab PO 80 mg QHS ALEXSANDRA Administration Cholecalciferol 5,000 unit 01/20/22 10:00 01/28/22 12:09 Cholecalciferol (Vit D3) 5,000 Unit Tab PO Not Given DAILY ALEXSANDRA Dextrose 50 ml 01/11/22 05:40 Dextrose 50% In Water (25gm) 50 Ml Syringe IV Q30MIN PRN Hypoglycemia Protocol Famotidine 10 mg 01/13/22 11:00 01/28/22 12:08 Famotidine 10 Mg Tab FEEDTUBE Not Given BID ALEXSANDRA Haloperidol Lactate 5 mg 01/27/22 12:08 01/28/22 12:50 Haloperidol Lactate 5 Mg/1 Ml Inj IM 5 mg Q6H PRN Administration Agitation Hydralazine HCl 10 mg 01/11/22 05:54 Hydralazine 20 Mg/1 Ml Inj IV Q6H PRN Blood Pressure Cefepime HCl 2 gm in 100 mls @ 200 mls/hr 01/26/22 18:00 01/28/22 12:06 Cefepime/Ns 2 Gm/100 Ml IV Infused Q12H ALEXSANDRA Infusion Protocol Sodium Chloride 1,000 mls @ 75 mls/hr 01/28/22 05:30 01/28/22 06:50 Nacl 0.9% 1000 Ml IV 75 mls/hr DIRECT ALEXSANDRA Administration Daptomycin 300 mg/ Sodium 100 mls @ 200 mls/hr 01/28/22 12:00 01/28/22 14:35 Chloride IV 200 mls/hr Q24H ALEXSANDRA Administration Protocol Insulin Glargine 15 units 01/18/22 22:00 01/28/22 00:30 Insulin Glargine 100 Units/Ml SUB-Q 15 units HS ALEXSANDRA Administration Insulin Human Lispro 0 unit 01/11/22 06:00 01/28/22 13:39 Insulin Lispro 100 Unit/Ml SUB-Q 5 unit Q6HR [facility] Administration Protocol Insulin Human Lispro 5 unit 01/25/22 07:30 01/28/22 12:57 Insulin Lispro 100 Unit/Ml SUB-Q 5 unit AC ALEXSANDRA Administration Midodrine 10 mg 01/12/22 09:03 01/28/22 12:50 Midodrine 10 Mg Tab PO 10 mg TID@0800,1200,1600 [facility] Administration Morphine Sulfate 2 mg 01/24/22 17:53 01/28/22 08:18 Morphine 2 Mg/1 Ml Inj IV 2 mg Q6H PRN Administration Pain, Moderate (4-6) Ondansetron HCl 4 mg 01/11/22 05:40 Ondansetron 4 Mg/2 Ml Inj IV Q8H PRN Nausea And Vomiting Oxycodone/Acetaminophen 1 tab 01/24/22 17:52 01/27/22 01:48 Oxycodone /Acetaminophen 5-325mg Tab PO 1 tab Q6H PRN Administration Pain, Moderate (4-6) Prazosin HCl 5 mg 01/15/22 22:00 01/28/22 12:09 Prazosin 5 Mg Cap PO Not Given Q12HR ALEXSANDRA Simple Syrup 15 ml 01/17/22 16:03 Simple Syrup 15 Ml FEEDTUBE PRN PRN Hypoglycemia Simple Syrup 30 ml 01/17/22 16:03 Simple Syrup 15 Ml FEEDTUBE PRN PRN Hypoglycemia Sodium Bicarbonate 325 mg 01/17/22 16:03 Sodium Bicarbonate 325 Mg Tab FEEDTUBE PRN PRN For Clogged Feeding Tube Sodium Chloride 10 ml 01/11/22 10:00 01/28/22 12:50 Sodium Chloride 0.9% 10 Ml Flush Syringe IV 10 ml BID ALEXSANDRA Administration Sodium Chloride 10 ml 01/11/22 05:40 Sodium Chloride 0.9% 10 Ml Flush Syringe IV PRN PRN LINE FLUSH Sodium Hypochlorite 1 applic 01/14/22 10:00 01/28/22 12:49 Sodium Hypochlorite, Dakin's 1/2 Strength (0.25%) 473 Ml Topical Soln TP 1 applicatio BID ALEXSANDRA Administration Zinc Sulfate 220 mg 01/19/22 22:00 01/28/22 12:09 Zinc Sulfate 220 Mg Cap PO Not Given BID ALEXSANDRA Nutrition/Malnutrition Assess - Dietary Evaluation Nutrition/Malnutrition Findings: Nutrition Notes Start: 01/12/22 13:45 Freq: Status: Active Protocol: Document 01/28/22 10:57 JARON (Rec: 01/28/22 11:19 JARON [id number]) Nutrition Notes Initial or Follow up Assessment Current Diagnosis Acute Kidney Injury,CKD(stage I-IV),Decubitus(Pressure Ulcer ),Diabetes,Sepsis,Hypertension ,Malnutrition,Stroke Other Pertinent Diagnosis CHF, Metabolic Encephalopathy, COVID-19, SIRS. Current Diet NPO (01/28 00:01), TF-Glucerna 1.2 Nicolas @ 75 ml/hr (since D 01/28). Labs/Tests 01/28: BUN 54, Crea 1.4, Glu 151, Ca 8.0. Pertinent Medications 01/28: Vit C, Vit D3, Lantus 15U, ZnSO4, others nutritionally unremarkable. Height 5 ft 10 in Weight 56.69 kg [place] Body Weight (kg) 75.45 BMI 17.9 Weight change and time frame No body weight change reported in 2 weeks Weight Status Underweight Subjective/Other Information RD consult for routine F/U on TF tolerance/continuation. Pt currently on NPO due to procedure on 01/28. TF will resume after that. Pt is on Room Air, O2 saturation @ 96%, according to Physical Assessment History notes. Salvage of R-LE is unlikely, due to continued signs of necrosis; BKA is being considered, according to Progress notes. Pt continues to present incontinence, according to Physical Assessment History notes. Fecal diversion is required, due to constant contamination of sacral wound, according to Progress notes. Percent of energy/protein needs met: Pt currently on NPO. Prescribed TF-Glucerna 1.2 Nicolas @ 75 ml/hr provides for energy/protein needs (2,160 Kcal/108 g) during LOS, 95% Kcal; 100% AA. Burn Absent Trauma Absent GI Symptoms Other Difficulty In Swallowing Food Allergy No Skin Integrity/Comment Sacral & R-LE infected wounds Current % PO Other Minimum of two criteria Yes Body Fat Depletion Moderate depletion (severe) Muscle Mass Moderate Depletion (severe) Fluid Accumulation N/A Reduced Tank Calibrator Strength N/A (non-severe) Protein-Calorie Malnutrition Severe #3 Nutrition Diagnosis Increased nutrient needs ( specify in comment below) #2 Nutrition Diagnosis Malnutrition Diagnosis Progress(for reassessment Continues documentation) #1 Nutrition Diagnosis Swallowing difficulty Diagnosis Progress(for reassessment Continues documentation) Is patient on ventilator? No Is Patient Ambulatory and/or Out of Bed No REE-(Bacon-. Jenc-confined to bed) 1635.336 Kcal/Kg value to use for calculation 40 Approximate Energy Requirements Using 2268 kcal/Kg Calculation Used for Recommendations Kcal/kg Additional Notes Protein: 1.5-2 g/Kg IBW; 85- 113 g/day. Fluids: 1 ml/Kcal, or as per MD. Nutrition Intervention Nutrition Support: When pertinent, resume TF- Glucerna 1.2 Nicolas @ 75 ml/hr. Flush: 120 ml water Q 4 hr, or as per MD. Kcal 2,160 Protein (gm) 108 Carbohydrates (gm) 206 Fat (gm) 108 Fluid (mL) 1,449 Fiber (gm) 29 % RDI: 95% Kcal; 100% AA. Goal #1 Provide at least 75% of energy /protein needs through Enteral Feeding during LOS. Follow-Up By: 02/04/22 Additional Comments When pertinent, continue monitoring TF tolerance and BM .
[2022-01-28] MEDS: oxyCODONE /ACETAMINOPHEN 5-325MG TAB PO PRN (22:37)
[2022-01-29] MEDS: INSULIN LISPRO 100 UNIT/ML SUB-Q SCH ×5 (00:06→12:56)
[2022-01-29] MEDS: FREE WATER PO SCH ×4 (02:10→15:57)
[2022-01-29] MEDS: CEFEPIME/NS 2 GM/100 ML 2 GM/100 ML BAG IV SCH (05:32)
[2022-01-29] MEDS: oxyCODONE /ACETAMINOPHEN 5-325MG TAB PO PRN (07:25)
[2022-01-29] MEDS: MIDODRINE 10 MG TAB PO SCH ×3 (08:24→15:58)
--- NOTE | 2022-01-29 08:50 | Progress Note ---
Assessment and Plan Assessment and plan: This is a 66-year-old male with known past medical history of hypertension, CVA, CHF, DM, dysphagia s/p PEGtube placement admitted for sepsis and MAURI Assessment and Plan; --Hyperkalemia --surgical debridement of decubitus ulcer sacrum, left heel 01/23/2022 Patient tolerated the procedure well Surgery recommended to DC Plavix for 5 days Postop care, pain medications #Acute Metabolic Encephalopathy - Multifactorial: probably due to azotemia vs hypernatremia, vs infectious process - on Continous IVF hydration and empiric IV abx - Mentation with mild improvement, following simple commands - CT head no changes - Frequent reorientation - Avoid sedatives agents - Maintenance of sleep-wake cycle #Hypotension 2/ #Sepsis Vs hypovolemia #H/o Congestive Heart Failure(CHF) - Presented with tachycardia and hypotension - Patient remains hypotension this am, was febrile overnight and worsen leukocyt osis this am - 12/14/21 Ech reviewed EF 45-50%, patient appear hypovolemic and dry - Continue IVF hydration per Nephro - Hold home antihypertensive agents - Midodrine added - cont. IVF, increased free water with TF for hypernatremia - Continue blood pressure monitor per protocol - Maintain MAP above 65 - Strict intake and output and daily weight #Acute Kidney Injury(MAURI) most likely ATN, placed on HD #Hypernatremia #Hyperkalemia, resolved # hypokalemia - probably due to hypotension/hypovelemia - Per record Scr. was 1.2 from last admit on 12/2021 - Scr. as high as 5.9, BUN 111 - s/p X1 dose of kayexalate, FWF for hypernatremia - Nephrology on consult, appreciated recommendation - no hydronephrosis on renal US - Strict intake and output - Avoid nephrotoxic medications; Renally dose medications - Vallecillo in place, initiated on HD 01/14 - replete electrolytes as needed #Severe Sepsis- multifactorial #Acute cystitis/UTI/VRE UTI # Positive Covid 19 #Infected Sacral Decubitis Ulcer/Proteus mirabilis #Leukocytosis #Lactic Acidosis - Presented with tachycardia and hypotension - Patient remains hypotension this am, was febrile overnight and worsen leukocytosis this am - Cultures pending, MRSA PCR positive - With multiple wounds, including malodourous, unstageable sacral decubitis. -Patient is on cefepime and daptomycin per ID - General Surgery consulted for possible debridement, wound care eval and treat - Wound care also consulted #Dysphagia s/p PEGtube Placement - Nutrition consulted - Initiated enteral nutrition #Thrombocytopenia - Presented with low plt - Plt count worsen this am - no s/s of any active bleeding - Will hold AC- heparin SubQ for now - H&H stable - HIT panel ordered #Type 2 Diabetes with Hyperglycemia - Continue BG and SSI Q6hrs - Lantus added qHs - While critically ill target blood glucose of 140-180 #GI/DVT Prophylaxis - PPI- Pepcid - SCDs to bilateral lower extremities while in bed Consults and recommendations noted and appreciated Closely monitor the patient and adjust management as needed Plan of care reviewed with patient and his nurse DC planning per case management/SNF placement COVID-19 PCR positive Rapid PCR test negative C. difficile negative Home O2 evaluation prior to discharge Continue current management Hospital Course to Date: 01/12: Patient remains encephalopathic but more awake, following simple commands. Still hypotensive this am, probable sepsis. Febrile overnight with worsening leukocytosis this am. Cultures are pending. Continue IVF hydration and empiric IV abx. Multiple wounds, including unstageable sacral decub and MRSA PCR positive. IV Vanco was also initiated, renal dose per pharmacy. ID consulted. Midodrine also added TID. General surgery and wound care was also consulted for wounds eval and treatment. Worsening renal function with hypernatremia and hyperkalemia also noted, continue IVF hydration per nephro. Worsening thromboc ytopenia also noted, no s/s of any active bleeding. H&H stable. Hold AC for now, HIT panel ordered. Lantus qhs added for hyperglycemia, continue BG and SSI Q6hrs 01/13: Patient tolerating tube feeds via PEG, unsure why the patient who had a PEG got so dehydrated at the facility, it appears he was tolerating some PO and as a result PEG was not in use at the facility. He is for debridement tomorrow, will continue free water flushes-150CC Q6 Considering he is on HD, will reassess and stop tomorrow if improved, Keep NPO after Midnight Continue abx therapy, Mental status improving some Discharge planning when stable 01/14/ Na level improving, Cr stable after HD x2, cont iv fluid, follow renal jadiel mmendation, pending surgical eval for decubitus ulcer 01/15: Plan to hold hemodialysis today, creatinine IVF/stable. Status post bedside debridement of the decubitus ulcer by general surgery. Patient need deep debridement which is planned for tomorrow. N.p.o. after midnight. Continue to follow BMP 01/16: Positive for COVID-19, moved to COVID floor. We will continue to follow inflammatory markers. cancelled deep debridement at the protocols today. We will continue to follow. Not a candidate for remdesivir due to renal failure, oxygen requirement has not changed, will hold dexamethasone. Continue to follow 01/17: BP remains very soft today, will initiate IV fluid, continue to monitor cl inically. Monitor renal function and inflammatory markers. add long acting insulin for hyperglycemia 01/18: K 2.8 today, cont to replete, ordered CT head worsening encephalopathy, cont restrain. Patient remians confused, follow inflammatory markers. follow BMP 01/19: patient on RA, remains confused. Na 150 today, changed iv fluid to D5w and increased free water with TF. follow inflammatory markers. D-dimer >1000, will change heparin to eliquis 2.[address] head w/o any changes 01/21/22; severe sepsis currently patient is on cefepime and daptomycin per ID Sacral decubitus ulcer, surgery following, awaiting debridement 7 days after COVID is positive for OR protocols 01/22/22 possible decubitus ulcer debridement tomorrow per surgery Patient is n.p.o. status from midnight 01/23; patient is scheduled for surgical debridement of decubitus ulcers 01/24; status post surgical debridement of decubitus ulcer, Plavix held for 5 days per surgeon Continue postop care 01/25 patient's hemoglobin dropped to 7.3, transfuse 1 unit PRBC Continue postop care, vital signs noted 01/26; Hb increased to 7.8, continue current management Patient VRE UTI, cefepime and daptomycin 01/27; hyperkalemia potassium 5.5, Kayexalate closely monitor electrolytes Try to adjust pain medications, sedation to keep patient comfortable Surgery and ID evaluations and recommendations appreciated 01/28/2022; surgery planning wound debridement tomorrow Patient is n.p.o. from midnight Consults and recommendations noted Hospitalist Physical - Constitutional Vitals: Temp Pulse Resp BP Pulse Ox 98.7 F 108 H 16 105/54 99 01/29/22 08:33 01/29/22 08:33 01/29/22 08:33 01/29/22 08:33 01/29/22 08:33 General appearance: Present: no acute distress, cachectic, other (Responding to simple questions appropriately) Results - Labs CBC & Chem 7: 01/28/22 05:56 01/28/22 09:32 Labs: Laboratory Last Values WBC 14.7 K/mm3 (4.5-11.0) H 01/28/22 05:56 RBC 2.74 M/mm3 (3.65-5.03) L 01/28/22 05:56 Hgb 7.6 gm/dl (11.8-15.2) L 01/28/22 05:56 Hct 23.6 % (35.5-45.6) L 01/28/22 05:56 MCV 86 fl (84-94) 01/28/22 05:56 MCH 28 pg (28-32) 01/28/22 05:56 MCHC 32 % (32-34) 01/28/22 05:56 RDW 22.8 % (13.2-15.2) H 01/28/22 05:56 Plt Count 103 K/mm3 (140-440) L 01/28/22 05:56 Rowan % (Auto) 4.2 % (0.0-7.3) 01/17/22 07:06 Eos % (Auto) 1.0 % (0.0-4.3) 01/17/22 07:06 Rowan # (Auto) 0.5 K/mm3 (0.0-0.8) 01/17/22 07:06 Eos # (Auto) 0.1 K/mm3 (0.0-0.4) 01/17/22 07:06 Baso # (Auto) 0.1 K/mm3 (0.0-0.1) 01/17/22 07:06 Add Manual Diff Complete 01/28/22 05:56 Total Counted 100 01/28/22 05:56 Seg Neutrophils % [employer] Sales Representative 01/17/22 07:06 Seg Neuts % (Manual) 90.0 % (40.0-70.0) H 01/28/22 05:56 Band Neutrophils % 0 % 01/28/22 05:56 Lymphocytes % (Manual) 3.0 % (13.4-35.0) L 01/28/22 05:56 Reactive Lymphs % (Man) 0 % 01/28/22 05:56 Monocytes % (Manual) 2.0 % (0.0-7.3) 01/28/22 05:56 Eosinophils % (Manual) 2.0 % (0.0-4.3) 01/28/22 05:56 Basophils % (Manual) 2.0 % (0.0-1.8) H 01/28/22 05:56 Metamyelocytes % 1.0 % 01/28/22 05:56 Myelocytes % 0 % 01/28/22 05:56 Promyelocytes % 0 % 01/28/22 05:56 Blast Cells % 0 % 01/28/22 05:56 Nucleated RBC % Not Reportable 01/28/22 05:56 Seg Neutrophils # 11.3 K/mm3 (1.8-7.7) H 01/17/22 07:06 Seg Neutrophils # Man 13.2 K/mm3 (1.8-7.7) H 01/28/22 05:56 Band Neutrophils # 0.0 K/mm3 01/28/22 05:56 Lymphocytes # (Manual) 0.4 K/mm3 (1.2-5.4) L 01/28/22 05:56 Abs React Lymphs (Man) 0.0 K/mm3 01/28/22 05:56 Monocytes # (Manual) 0.3 K/mm3 (0.0-0.8) 01/28/22 05:56 Eosinophils # (Manual) 0.3 K/mm3 (0.0-0.4) 01/28/22 05:56 Basophils # (Manual) 0.3 K/mm3 (0.0-0.1) H 01/28/22 05:56 Metamyelocytes # 0.1 K/mm3 01/28/22 05:56 Myelocytes # 0.0 K/mm3 01/28/22 05:56 Promyelocytes # 0.0 K/mm3 01/28/22 05:56 Blast Cells # 0.0 K/mm3 01/28/22 05:56 WBC Morphology Not Reportable 01/28/22 05:56 Hypersegmented Neuts Not Reportable 01/28/22 05:56 Hyposegmented Neuts Not Reportable 01/28/22 05:56 Hypogranular Neuts Not Reportable 01/28/22 05:56 Smudge Cells Not Reportable 01/28/22 05:56 Toxic Granulation Not Reportable 01/28/22 05:56 Toxic Vacuolation Not Reportable 01/28/22 05:56 Dohle Bodies Not Reportable 01/28/22 05:56 Pelger-Huet Anomaly Not Reportable 01/28/22 05:56 Sarah Rods Not Reportable 01/28/22 05:56 Platelet Estimate Consistent w auto 01/28/22 05:56 Clumped Platelets Not Reportable 01/28/22 05:56 Plt Clumps, EDTA Not Reportable 01/28/22 05:56 Large Platelets Rare 01/28/22 05:56 Giant Platelets Not Reportable 01/28/22 05:56 Platelet Satelliting Not Reportable 01/28/22 05:56 Plt Morphology Comment Not Reportable 01/28/22 05:56 RBC Morphology Not Reportable 01/28/22 05:56 Dimorphic RBCs Not Reportable 01/28/22 05:56 Polychromasia Not Reportable 01/28/22 05:56 Hypochromasia 1+ 01/28/22 05:56 Poikilocytosis 1+ 01/28/22 05:56 Anisocytosis 2+ 01/28/22 05:56 Microcytosis 2+ 01/28/22 05:56 Macrocytosis Not Reportable 01/28/22 05:56 Spherocytes Not Reportable 01/28/22 05:56 Pappenheimer Bodies Not Reportable 01/28/22 05:56 Sickle Cells Not Reportable 01/28/22 05:56 Target Cells Rare 01/28/22 05:56 Tear Drop Cells Not Reportable 01/28/22 05:56 Ovalocytes Rare 01/28/22 05:56 Stomatocytes Rare 01/28/22 05:56 Helmet Cells Not Reportable 01/28/22 05:56 Gerer-Bush Bodies Not Reportable 01/28/22 05:56 Sterling Rings Not Reportable 01/28/22 05:56 Kwabena Cells Not Reportable 01/28/22 05:56 Bite Cells Not Reportable 01/28/22 05:56 Crenated Cell Not Reportable 01/28/22 05:56 Elliptocytes Rare 01/28/22 05:56 Acanthocytes (Spur) Not Reportable 01/28/22 05:56 Rouleaux Not Reportable 01/28/22 05:56 Hemoglobin C Crystals Not Reportable 01/28/22 05:56 Schistocytes Not Reportable 01/28/22 05:56 Malaria parasites Not Reportable 01/28/22 05:56 Jigar Bodies Not Reportable 01/28/22 05:56 Hem Pathologist Commnt No 01/28/22 05:56 D-Dimer 940.59 ng/mlDDU (0-234) H 01/20/22 04:39 Heparin Anti-Xa, Unfract Negative (Negative) 01/13/22 04:56 Sodium 140 mmol/L (137-145) 01/28/22 09:32 Potassium 4.8 mmol/L (3.6-5.0) 01/28/22 09:32 Chloride 106.6 mmol/L (98-107) 01/28/22 09:32 Carbon Dioxide 24 mmol/L (22-30) 01/28/22 09:32 Anion Gap 14 mmol/L 01/28/22 09:32 BUN 54 mg/dL (9-20) H 01/28/22 09:32 Creatinine 1.4 mg/dL (0.8-1.3) H 01/28/22 09:32 Estimated GFR 51 ml/min 01/28/22 09:32 BUN/Creatinine Ratio 39 % 01/28/22 09:32 Glucose 151 mg/dL (75-100) H 01/28/22 09:32 POC Glucose 168 mg/dL (70-105) H 01/29/22 08:13 Lactic Acid 1.70 mmol/L (0.7-2.0) 01/13/22 04:56 Calcium 8.0 mg/dL (8.4-10.2) L 01/28/22 09:32 Phosphorus 3.60 mg/dL (2.5-4.5) 01/17/22 07:06 Magnesium 2.30 mg/dL (1.7-2.3) 01/25/22 05:50 Ferritin 560.7 ng/mL (30.0-300.0) H 01/20/22 04:39 Total Bilirubin 0.60 mg/dL (0.1-1.2) 01/11/22 03:08 Direct Bilirubin 0.3 mg/dL (0-0.2) H 01/11/22 03:08 Indirect Bilirubin 0.3 mg/dL 01/11/22 03:08 AST 45 units/L (5-40) H 01/11/22 03:08 ALT 29 units/L (7-56) 01/11/22 03:08 Alkaline Phosphatase 180 units/L (35-129) H 01/11/22 03:08 Lactate Dehydrogenase 334 units/L (91-180) H 01/20/22 04:39 Total Creatine Kinase 25 units/L (55-170) L 01/27/22 06:16 C-Reactive Protein 3.10 mg/dL (0.00-1.30) H 01/22/22 06:10 Serum Total Protein 5.4 g/dL (6.1-8.1) L 01/15/22 08:41 Total Protein 7.3 g/dL (6.3-8.2) 01/11/22 03:08 Albumin 2.0 g/dL (3.8-4.8) L 01/15/22 08:41 Albumin/Globulin Ratio 0.5 % 01/11/22 03:08 Olkjk-7-Lyoevmnrj 0.5 g/dL (0.2-0.3) H 01/15/22 08:41 Agnms-7-Jhcjqqcup 0.9 g/dL (0.5-0.9) 01/15/22 08:41 Beta Globulins 0.6 g/dL (0.2-0.5) H 01/15/22 08:41 Gamma Globulins 1.2 g/dL (0.8-1.7) 01/15/22 08:41 Abnorm Protein Band 1 see below 01/15/22 08:41 PEP Interpretation see below H 01/15/22 08:41 Serotonin Release Assay See scanned result 01/13/22 04:56 Procalcitonin 0.74 ng/mL (<0.15) 01/20/22 04:39 Urine Color Claudia (Yellow) 01/12/22 11:44 Urine Turbidity Cloudy (Clear) 01/12/22 11:44 Urine pH 5.0 (5.0-7.0) 01/12/22 11:44 Ur Specific Miles 1.030 (1.003-1.030) 01/12/22 11:44 Urine Protein 30 mg/dl mg/dL (Negative) 01/12/22 11:44 Urine Glucose (UA) Negative mg/dL (Negative) 01/12/22 11:44 Urine Ketones Negative mg/dL (Negative) 01/12/22 11:44 Urine Blood Moderate (Negative) A 01/12/22 11:44 Urine Nitrite Negative (Negative) 01/12/22 11:44 Ur Reducing Substances Not Reportable 01/12/22 11:44 Urine Bilirubin Negative (Negative) 01/12/22 11:44 Urine Ictotest Not Reportable 01/12/22 11:44 Urine Urobilinogen 0.0 mg/dL (<2.0) 01/12/22 11:44 Ur Leukocyte Esterase Trace (Negative) 01/12/22 11:44 Urine WBC (Auto) > 182.0 /HPF (0.0-6.0) H 01/12/22 11:44 Urine RBC (Auto) 12.0 /HPF (0.0-6.0) 01/12/22 11:44 Urine Bacteria (Auto) 2+ /HPF (Negative) 01/12/22 11:44 Urine WBC Clumps 3+ /HPF 01/11/22 07:14 Urine Mucus Few /HPF 01/12/22 11:44 Urine Total Volume 1700 ml 01/20/22 17:30 Urine Creatinine 61.8 mg/dL (0.1-20.0) H 01/20/22 17:30 Height (in) 70.0 inches 01/20/22 17:30 Weight (lb) 124.7 lbs 01/20/22 17:30 Creatinine Clearance 28 01/20/22 17:30 Urine Sodium 58 mmol/L 01/12/22 11:44 Nasal Screen MRSA (PCR) Positive (Negative) 01/12/22 Unknown Random Vancomycin 10.3 ug/mL (0-40.0) 01/18/22 07:50 KAMILLA Screen Negative (Negative) 01/14/22 05:47 Proteinase 3 (PR3) Ab <1.0 AI (<1.0) 01/13/22 18:40 Myeloperoxidase Ab <1.0 AI (<1.0) 01/13/22 18:40 Heparin-induced Plt Ab Positive (Negative) H 01/13/22 04:56 UF Heparin High Dose 3 % Release 01/13/22 04:56 BRYCE UFH Low Dose 0.1 4 % Release 01/13/22 04:56 BRYCE UFH Low Dose 0.5 5 % Release 01/13/22 04:56 Complement C3 203 mg/dL (82-185) H 01/15/22 08:41 Complement C4 52 mg/dL (15-53) 01/15/22 08:41 C. difficile Tox (PCR) Negative (Negative) 01/15/22 11:32 Coronavirus (PCR) Positive (Negative) A 01/15/22 10:30 SARS-CoV-2 (PCR) Negative (Negative) 01/22/22 10:30 Hepatitis A IgM Ab Non-reactive (NonReactive) 01/13/22 18:40 Hep Bs Antigen Non-reactive (Negative) 01/13/22 18:40 Hep B Core IgM Ab Non-reactive (NonReactive) 01/13/22 18:40 Hepatitis C Antibody Non-reactive (NonReactive) 01/13/22 18:40 Miscellaneous Test Flexitest 1 H 01/13/22 18:40 Blood Type A POSITIVE 01/28/22 09:32 Antibody Screen Negative 01/28/22 09:32 Crossmatch See Detail 01/24/22 06:50 Vallecillo/IV: Voiding Method Indwelling Catheter Active Medications - Current Medications Current Medications: Generic Name Dose Route Start Last Admin Trade Name Freq PRN Reason Stop Dose Admin Acetaminophen 650 mg 01/11/22 05:40 01/25/22 22:09 Acetaminophen 325 Mg Tab PO 650 mg Q4H PRN Administration Pain MILD(1-3)/Fever >100.5/ROGERS Albuterol 2.5 mg 01/11/22 05:40 Albuterol 2.5 Mg/3 Ml Nebu IH Q3HRT PRN Shortness Of Breath Alprazolam 0.5 mg 01/27/22 14:54 Alprazolam 0.5 Mg Tab PO Q8H PRN Anxiety Lipase/Protease/Amylase 1 each 01/17/22 16:03 Lipase 10,500/Protease 25,000/Amylase 43,750 (Units) Dr Cap FEEDTUBE PRN PRN For Clogged Feeding Tube Ascorbic Acid 1,000 mg 01/19/22 22:00 01/28/22 22:36 Ascorbic Acid 500 Mg Tab PO 1,000 mg BID ALEXSANDRA Administration Aspirin 81 mg 01/13/22 11:00 01/28/22 12:10 Aspirin 81 Mg Tab Chew FEEDTUBE Not Given QDAY ALEXSANDRA Atorvastatin Calcium 80 mg 01/11/22 22:00 01/28/22 22:37 Atorvastatin 40 Mg Tab PO 80 mg QHS ALEXSANDRA Administration Cholecalciferol 5,000 unit 01/20/22 10:00 01/28/22 12:09 Cholecalciferol (Vit D3) 5,000 Unit Tab PO Not Given DAILY ALEXSANDRA Dextrose 50 ml 01/11/22 05:40 Dextrose 50% In Water (25gm) 50 Ml Syringe IV Q30MIN PRN Hypoglycemia Protocol Famotidine 10 mg 01/13/22 11:00 01/28/22 22:35 Famotidine 10 Mg Tab FEEDTUBE 10 mg BID ALEXSANDRA Administration Haloperidol Lactate 5 mg 01/27/22 12:08 01/28/22 12:50 Haloperidol Lactate 5 Mg/1 Ml Inj IM 5 mg Q6H PRN Administration Agitation Hydralazine HCl 10 mg 01/11/22 05:54 Hydralazine 20 Mg/1 Ml Inj IV Q6H PRN Blood Pressure Cefepime HCl 2 gm in 100 mls @ 200 mls/hr 01/26/22 18:00 01/29/22 05:32 Cefepime/Ns 2 Gm/100 Ml IV 200 mls/hr Q12H ALEXSANDRA Administration Protocol Sodium Chloride 1,000 mls @ 75 mls/hr 01/28/22 05:30 01/28/22 06:50 Nacl 0.9% 1000 Ml IV 75 mls/hr DIRECT ALEXSANDRA Administration Daptomycin 300 mg/ Sodium 100 mls @ 200 mls/hr 01/28/22 12:00 01/28/22 18:42 Chloride IV Infused Q24H [facility] Infusion Protocol Insulin Glargine 15 units 01/18/22 22:00 01/28/22 22:53 Insulin Glargine 100 Units/Ml SUB-Q Not Given HS ALEXSANDRA Insulin Human Lispro 0 unit 01/11/22 06:00 01/29/22 05:38 Insulin Lispro 100 Unit/Ml SUB-Q Not Given Q6HR [facility] Protocol Insulin Human Lispro 5 unit 01/25/22 07:30 01/29/22 08:24 Insulin Lispro 100 Unit/Ml SUB-Q 5 unit AC ALEXSANDRA Administration Midodrine 10 mg 01/12/22 09:03 01/29/22 08:24 Midodrine 10 Mg Tab PO 10 mg TID@0800,1200,1600 ALEXSANDRA Administration Morphine Sulfate 2 mg 01/24/22 17:53 01/28/22 08:18 Morphine 2 Mg/1 Ml Inj IV 2 mg Q6H PRN Administration Pain, Moderate (4-6) Ondansetron HCl 4 mg 01/11/22 05:40 Ondansetron 4 Mg/2 Ml Inj IV Q8H PRN Nausea And Vomiting Oxycodone/Acetaminophen 1 tab 01/24/22 17:52 01/29/22 07:25 Oxycodone /Acetaminophen 5-325mg Tab PO 1 tab Q6H PRN Administration Pain, Moderate (4-6) Prazosin HCl 5 mg 01/15/22 22:00 01/28/22 22:36 Prazosin 5 Mg Cap PO 5 mg Q12HR ALEXSANDRA Administration Simple Syrup 15 ml 01/17/22 16:03 Simple Syrup 15 Ml FEEDTUBE PRN PRN Hypoglycemia Simple Syrup 30 ml 01/17/22 16:03 Simple Syrup 15 Ml FEEDTUBE PRN PRN Hypoglycemia Sodium Bicarbonate 325 mg 01/17/22 16:03 Sodium Bicarbonate 325 Mg Tab FEEDTUBE PRN PRN For Clogged Feeding Tube Sodium Chloride 10 ml 01/11/22 10:00 01/28/22 22:36 Sodium Chloride 0.9% 10 Ml Flush Syringe IV 10 ml BID ALEXSANDRA Administration Sodium Chloride 10 ml 01/11/22 05:40 Sodium Chloride 0.9% 10 Ml Flush Syringe IV PRN PRN LINE FLUSH Sodium Hypochlorite 1 applic 01/14/22 10:00 01/28/22 22:39 Sodium Hypochlorite, Dakin's 1/2 Strength (0.25%) 473 Ml Topical Soln TP 1 applicatio BID ALEXSANDRA Administration Zinc Sulfate 220 mg 01/19/22 22:00 01/28/22 22:36 Zinc Sulfate 220 Mg Cap PO 220 mg BID ALEXSANDRA Administration Nutrition/Malnutrition Assess - Dietary Evaluation Nutrition/Malnutrition Findings: Nutrition Notes Start: 01/12/22 13:45 Freq: Status: Active Protocol: Document 01/28/22 10:57 JARON (Rec: 01/28/22 11:19 JARON [id number]) Nutrition Notes Initial or Follow up Assessment Current Diagnosis Acute Kidney Injury,CKD(stage I-IV),Decubitus(Pressure Ulcer ),Diabetes,Sepsis,Hypertension ,Malnutrition,Stroke Other Pertinent Diagnosis CHF, Metabolic Encephalopathy, COVID-19, SIRS. Current Diet NPO (01/28 00:01), TF-Glucerna 1.2 Nicolas @ 75 ml/hr (since D 01/28). Labs/Tests 01/28: BUN 54, Crea 1.4, Glu 151, Ca 8.0. Pertinent Medications 01/28: Vit C, Vit D3, Lantus 15U, ZnSO4, others nutritionally unremarkable. Height 5 ft 10 in Weight 56.69 kg [place] Body Weight (kg) 75.45 BMI 17.9 Weight change and time frame No body weight change reported in 2 weeks Weight Status Underweight Subjective/Other Information RD consult for routine F/U on TF tolerance/continuation. Pt currently on NPO due to procedure on 01/28. TF will resume after that. Pt is on Room Air, O2 saturation @ 96%, according to Physical Assessment History notes. Salvage of R-LE is unlikely, due to continued signs of necrosis; BKA is being considered, according to Progress notes. Pt continues to present incontinence, according to Physical Assessment History notes. Fecal diversion is required, due to constant contamination of sacral wound, according to Progress notes. Percent of energy/protein needs met: Pt currently on NPO. Prescribed TF-Glucerna 1.2 Nicolas @ 75 ml/hr provides for energy/protein needs (2,160 Kcal/108 g) during LOS, 95% Kcal; 100% AA. Burn Absent Trauma Absent GI Symptoms Other Difficulty In Swallowing Food Allergy No Skin Integrity/Comment Sacral & R-LE infected wounds Current % PO Other Minimum of two criteria Yes Body Fat Depletion Moderate depletion (severe) Muscle Mass Moderate Depletion (severe) Fluid Accumulation N/A Reduced Liability Claims Adjuster Strength N/A (non-severe) Protein-Calorie Malnutrition Severe #3 Nutrition Diagnosis Increased nutrient needs ( specify in comment below) #2 Nutrition Diagnosis Malnutrition Diagnosis Progress(for reassessment Continues documentation) #1 Nutrition Diagnosis Swallowing difficulty Diagnosis Progress(for reassessment Continues documentation) Is patient on ventilator? No Is Patient Ambulatory and/or Out of Bed No REE-([facility]-confined to bed) [phone] Kcal/Kg value to use for calculation 40 Approximate Energy Requirements Using 2268 kcal/Kg Calculation Used for Recommendations Kcal/kg Additional Notes Protein: 1.5-2 g/Kg IBW; 85- 113 g/day. Fluids: 1 ml/Kcal, or as per MD. Nutrition Intervention Nutrition Support: When pertinent, resume TF- Glucerna 1.2 Nicolas @ 75 ml/hr. Flush: 120 ml water Q 4 hr, or as per MD. Kcal 2,160 Protein (gm) 108 Carbohydrates (gm) 206 Fat (gm) 108 Fluid (mL) 1,449 Fiber (gm) 29 % RDI: 95% Kcal; 100% AA. Goal #1 Provide at least 75% of energy /protein needs through Enteral Feeding during LOS. Follow-Up By: 02/04/22 Additional Comments When pertinent, continue monitoring TF tolerance and BM .
--- NOTE | 2022-01-29 08:58 | Progress Note ---
Assessment and Plan Patient with continued signs of tissue necrosis in the sacrum and right heel ulcers. Posterior right leg ulcer is clean with beginning of granulation tissue. Would continue to hold Plavix another 5 days as patient will need to return to the OR for further debridement. Also of consideration is a BK amputation after vascular evaluation and a sigmoid end colostomy diversion to help with the wound care and the sacrum. Right posterior leg and ankle wounds evaluated continued signs of necrosis. Salvage of the limb is unlikely. Vascular evaluation for distal peripheral patient has been requested and is pending. 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 There is also significant risk for fecal soilage because of the proximity to the anus. Consider diversion. Patient is feeling better today appears more awake. Duplex vascular studies reported. Some inflow obstruction detected on the right side. We will discuss with Dr. Butt's group and vascular. If patient becomes oriented enough POA should be sought and agreed on with the patient. Continue Dakin's wet-to-dry dressing changes twice daily until POA and her consents are able to be at obtained. Subjective Date of service: 01/29/22 Patient Reports: Positive: no new complaints, feels better Narrative: Patient is feeling better today appears more awake. Duplex vascular studies reported. Some inflow obstruction detected on the right side. We will discuss with Dr. Butt's group and vascular. If patient becomes oriented enough POA should be sought and agreed on with the patient. Objective Vital Signs - 12hr 01/28/22 01/28/22 01/28/22 22:00 22:23 22:36 Temperature 98.6 F Pulse Rate 82 82 Respiratory 18 Rate Blood Pressure 144/55 Blood Pressure 144/55 [Left] O2 Sat by Pulse 98 98 Oximetry 01/28/22 01/29/22 01/29/22 23:28 04:51 08:33 Temperature 98.1 F 98.7 F Pulse Rate 82 88 108 H Respiratory 20 16 Rate Blood Pressure Blood Pressure 103/59 105/54 [Left] O2 Sat by Pulse 97 99 Oximetry - Labs 01/28/22 05:56 01/28/22 09:32 Diabetes panel 01/28/22 Range/Units 09:32 Sodium 140 (137-145) mmol/L Potassium 4.8 (3.6-5.0) mmol/L Chloride 106.6 (98-107) mmol/L Carbon Dioxide 24 (22-30) mmol/L BUN 54 H (9-20) mg/dL Creatinine 1.4 H (0.8-1.3) mg/dL Glucose 151 H (75-100) mg/dL Calcium 8.0 L (8.4-10.2) mg/dL Calcium panel 01/28/22 Range/Units 09:32 Calcium 8.0 L (8.4-10.2) mg/dL Pituitary panel 01/28/22 Range/Units 09:32 Sodium 140 (137-145) mmol/L Potassium 4.8 (3.6-5.0) mmol/L Chloride 106.6 (98-107) mmol/L Carbon Dioxide 24 (22-30) mmol/L BUN 54 H (9-20) mg/dL Creatinine 1.4 H (0.8-1.3) mg/dL Glucose 151 H (75-100) mg/dL Calcium 8.0 L (8.4-10.2) mg/dL Adrenal panel 01/28/22 Range/Units 09:32 Sodium 140 (137-145) mmol/L Potassium 4.8 (3.6-5.0) mmol/L Chloride 106.6 (98-107) mmol/L Carbon Dioxide 24 (22-30) mmol/L BUN 54 H (9-20) mg/dL Creatinine 1.4 H (0.8-1.3) mg/dL Glucose 151 H (75-100) mg/dL Calcium 8.0 L (8.4-10.2) mg/dL
[2022-01-29] MEDS: PRAZOSIN 5 MG CAP PO SCH (09:23)
--- NOTE | 2022-01-29 09:23 | Progress Note ---
Assessment and Plan Acute metabolic encephalopathy MAURI (acute kidney injury) Hypertension Congestive heart failure Diabetes Hypernatremia SIRS (systemic inflammatory response syndrome COVID-positive Hyperkalemia Plan: cont to have very good UOP Cr cont to improve Hemodialysis has been discontinued S/P vasc cath removal on 01/24/22 Anemia-transfuse as needed Renal US was negative for obstruction Renally dose medications Strict I&O's daily Obtain daily weights Continue to monitor renal function Subjective Date of service: 01/29/22 Principal diagnosis: MAURI Interval history: appears comfortable Objective - Vital Signs Vital signs: Vital Signs - 12hr 01/28/22 01/28/22 01/28/22 22:00 22:23 22:36 Temperature 98.6 F Pulse Rate 82 82 Respiratory 18 Rate Blood Pressure 144/55 Blood Pressure 144/55 [Left] O2 Sat by Pulse 98 98 Oximetry 01/28/22 01/29/22 01/29/22 23:28 04:51 08:33 Temperature 98.1 F 98.7 F Pulse Rate 82 88 108 H Respiratory 20 16 Rate Blood Pressure Blood Pressure 103/59 105/54 [Left] O2 Sat by Pulse 97 99 Oximetry - General Appearance General appearance: well-developed, well-nourished EENT: ATNC, PERRL Neck: no JVD, no carotid bruit Respiratory: Present: Clear to Ascultation Cardiology: regular, S1S2 Gastrointestinal: normoactive bowel sounds Integumentary: no rash, warm and dry Neurologic: no focal deficit Musculoskeletal: other (no edema in BLE) - Lab 01/28/22 05:56 01/28/22 09:32 Most recent lab results Calcium 8.0 mg/dL (8.4-10.2) L 01/28/22 09:32 Phosphorus 3.60 mg/dL (2.5-4.5) 01/17/22 07:06 Magnesium 2.30 mg/dL (1.7-2.3) 01/25/22 05:50 Urine Creatinine 61.8 mg/dL (0.1-20.0) H 01/20/22 17:30 Urine Sodium 58 mmol/L 01/12/22 11:44 Medications & Allergies - Medications Allergies/Adverse Reactions: Allergies heparin Allergy (Verified 01/19/22 10:43) Unknown Home Medications: Home Medications Medication Instructions Recorded Confirmed Last Taken Type cephALEXin [Keflex] 500 mg PO Q6HR 7 Days #28 capsule 12/09/21 01/14/22 Unknown Rx Aspirin [[place] Aspirin EC] 81 mg PO QDAY 12/14/21 01/14/22 Unknown History Atorvastatin [Lipitor] 80 mg PO QHS 12/14/21 01/14/22 Unknown History Dapagliflozin Propanediol [Farxiga] 10 mg PO QDAY 12/14/21 01/14/22 Unknown History Insulin Detemir [Levemir VIAL] 25 unit SQ QHS 12/14/21 01/14/22 Unknown History Insulin Lispro [Admelog] 100 unit SQ ACHS 12/14/21 01/14/22 Unknown History Tamsulosin [Flomax] 0.4 mg PO QDAY 12/14/21 01/14/22 Unknown History carvediloL [Coreg] 3.125 mg PO BID 12/14/21 01/14/22 Unknown History Clopidogrel [Plavix] 75 mg PO QDAY tablet 12/27/21 01/14/22 Unknown Rx Sertraline [Zoloft] 100 mg PO QDAY #30 12/27/21 01/14/22 Unknown Rx Simple Syrup 15 ml FEEDTUBE PRN PRN oral.liqd 12/27/21 01/14/22 Unknown Rx Simple Syrup 30 ml FEEDTUBE PRN PRN oral.liqd 12/27/21 01/14/22 Unknown Rx Sodium Bicarbonate 325 mg FEEDTUBE PRN PRN #30 tablet 12/27/21 01/14/22 Unknown Rx Torsemide [Demadex] 20 mg PO QDAY #30 12/27/21 01/14/22 Unknown Rx Active Medications: Generic Name Dose Route Start Last Admin Trade Name Freq PRN Reason Stop Dose Admin Acetaminophen 650 mg 01/11/22 05:40 01/25/22 22:09 Acetaminophen 325 Mg Tab PO 650 mg Q4H PRN Administration Pain MILD(1-3)/Fever >100.5/ROGERS Albuterol 2.5 mg 01/11/22 05:40 Albuterol 2.5 Mg/3 Ml Nebu IH Q3HRT PRN Shortness Of Breath Alprazolam 0.5 mg 01/27/22 14:54 Alprazolam 0.5 Mg Tab PO Q8H PRN Anxiety Lipase/Protease/Amylase 1 each 01/17/22 16:03 Lipase 10,500/Protease 25,000/Amylase 43,750 (Units) Dr Mariee FEEDTUBE PRN PRN For Clogged Feeding Tube Ascorbic Acid 1,000 mg 01/19/22 22:00 01/28/22 22:36 Ascorbic Acid 500 Mg Tab PO 1,000 mg BID ALEXSANDRA Administration Aspirin 81 mg 01/13/22 11:00 01/28/22 12:10 Aspirin 81 Mg Tab Chew FEEDTUBE Not Given QDAY ALEXSANDRA Atorvastatin Calcium 80 mg 01/11/22 22:00 01/28/22 22:37 Atorvastatin 40 Mg Tab PO 80 mg QHS ALEXSANDRA Administration Cholecalciferol 5,000 unit 01/20/22 10:00 01/28/22 12:09 Cholecalciferol (Vit D3) 5,000 Unit Tab PO Not Given DAILY ALEXSANDRA Dextrose 50 ml 01/11/22 05:40 Dextrose 50% In Water (25gm) 50 Ml Syringe IV Q30MIN PRN Hypoglycemia Protocol Famotidine 10 mg 01/13/22 11:00 01/28/22 22:35 Famotidine 10 Mg Tab FEEDTUBE 10 mg BID ALEXSANDRA Administration Haloperidol Lactate 5 mg 01/27/22 12:08 01/28/22 12:50 Haloperidol Lactate 5 Mg/1 Ml Inj IM 5 mg Q6H PRN Administration Agitation Hydralazine HCl 10 mg 01/11/22 05:54 Hydralazine 20 Mg/1 Ml Inj IV Q6H PRN Blood Pressure Cefepime HCl 2 gm in 100 mls @ 200 mls/hr 01/26/22 18:00 01/29/22 05:32 Cefepime/Ns 2 Gm/100 Ml IV 200 mls/hr Q12H ALEXSANDRA Administration Protocol Sodium Chloride 1,000 mls @ 75 mls/hr 01/28/22 05:30 01/28/22 06:50 Nacl 0.9% 1000 Ml IV 75 mls/hr DIRECT ALEXSANDRA Administration Daptomycin 300 mg/ Sodium 100 mls @ 200 mls/hr 01/28/22 12:00 01/28/22 18:42 Chloride IV Infused Q24H ALEXSANDRA Infusion Protocol Insulin Glargine 15 units 01/18/22 22:00 01/28/22 22:53 Insulin Glargine 100 Units/Ml SUB-Q Not Given HS ALEXSANDRA Insulin Human Lispro 0 unit 01/11/22 06:00 01/29/22 05:38 Insulin Lispro 100 Unit/Ml SUB-Q Not Given Q6HR [facility] Protocol Insulin Human Lispro 5 unit 01/25/22 07:30 01/29/22 08:24 Insulin Lispro 100 Unit/Ml SUB-Q 5 unit AC ALEXSANDRA Administration Midodrine 10 mg 01/12/22 09:03 01/29/22 08:24 Midodrine 10 Mg Tab PO 10 mg TID@0800,1200,1600 ALEXSANDRA Administration Morphine Sulfate 2 mg 01/24/22 17:53 01/28/22 08:18 Morphine 2 Mg/1 Ml Inj IV 2 mg Q6H PRN Administration Pain, Moderate (4-6) Ondansetron HCl 4 mg 01/11/22 05:40 Ondansetron 4 Mg/2 Ml Inj IV Q8H PRN Nausea And Vomiting Oxycodone/Acetaminophen 1 tab 01/24/22 17:52 01/29/22 07:25 Oxycodone /Acetaminophen 5-325mg Tab PO 1 tab Q6H PRN Administration Pain, Moderate (4-6) Prazosin HCl 5 mg 01/15/22 22:00 01/28/22 22:36 Prazosin 5 Mg Cap PO 5 mg Q12HR ALEXSANDRA Administration Simple Syrup 15 ml 01/17/22 16:03 Simple Syrup 15 Ml FEEDTUBE PRN PRN Hypoglycemia Simple Syrup 30 ml 01/17/22 16:03 Simple Syrup 15 Ml FEEDTUBE PRN PRN Hypoglycemia Sodium Bicarbonate 325 mg 01/17/22 16:03 Sodium Bicarbonate 325 Mg Tab FEEDTUBE PRN PRN For Clogged Feeding Tube Sodium Chloride 10 ml 01/11/22 10:00 01/28/22 22:36 Sodium Chloride 0.9% 10 Ml Flush Syringe IV 10 ml BID ALEXSANDRA Administration Sodium Chloride 10 ml 01/11/22 05:40 Sodium Chloride 0.9% 10 Ml Flush Syringe IV PRN PRN LINE FLUSH Sodium Hypochlorite 1 applic 01/14/22 10:00 01/28/22 22:39 Sodium Hypochlorite, Dakin's 1/2 Strength (0.25%) 473 Ml Topical Soln TP 1 applicatio BID ALEXSANDRA Administration Zinc Sulfate 220 mg 01/19/22 22:00 01/28/22 22:36 Zinc Sulfate 220 Mg Cap PO 220 mg BID ALEXSANDRA Administration
[2022-01-29] MEDS: ASPIRIN 81 MG TAB CHEW FEEDTUBE SCH (09:24)
[2022-01-29] MEDS: CHOLECALCIFEROL (VIT D3) 5,000 UNIT TAB PO SCH (09:24)
[2022-01-29] MEDS: ZINC SULFATE 220 MG CAP PO SCH (09:24)
[2022-01-29] MEDS: FAMOTIDINE 10 MG TAB FEEDTUBE SCH (09:24)
[2022-01-29] MEDS: ASCORBIC ACID 500 MG TAB PO SCH (09:25)
[2022-01-29] MEDS: SODIUM HYPOCHLORITE, DAKIN'S 1/2 STRENGTH (0.25%) 473 ML TOPICAL SOLN TP SCH (09:25)
[2022-01-29] MEDS: SODIUM CHLORIDE 0.9% 1000 ML 1,000 ML IV SCH (09:29)
--- NOTE | 2022-01-29 10:10 | Progress Note ---
Assessment and Plan Cultures: MRSA nasal PCR: Positive 01/11/2022 blood culture: No growth 01/11/2022 urine culture: Enterobacter, Enterococcus (VRE - faecium) 01/14/2022 decubitus OR culture: Proteus mirabilis 01/15/2022 C. difficile PCR: Negative A/P: 66-year-old male with hypertension, CHF, diabetes, prior CVA, status post PEG tube, indwelling Vallecillo catheter, [facility] resident: #Severe sepsis: Multifactorial, likely secondary to UTI, infected sacral decubitus ulcer. UA showed significant pyuria. Blood cultures with no growth. #COVID-19: initial CXR without pneumonia. Weaned off oxygen. WBC 14.0, D-dimer 1089, CRP 15.8, procalcitonin 0.57, ferritin 693, LDH 336. C. difficile PCR: Negative #UTI: indwelling Vallecillo. UA with pyuria, culture with Enterobacter, Enterococcus #Necrotic sacral decubitus ulcer with eschar. Underwent debridement by Dr. Small on 01/14/2022. CT without any evidence of osteomyelitis. #Acute renal failure: renally adjust abx. Nephrology following, on HD. #Prior CVA, bedbound status with indwelling Vallecillo catheter, PEG tube #Acute encephalopathy: Admitted with severe hypernatremia. #Acute thrombocytopenia: monitor. #Protein calorie malnutrition Recs: -continue renally dosed IV cefepime, IV daptomycin due to VRE. Avoiding linezolid due to thrombocytopenia. -continue wound care and offloading. Surgery following, possible additional debridement vs BKA -Guarded prognosis -pending repeat debridement Magen Asher MD [facility] O: [phone] F: [phone] Subjective Date of service: 01/29/22 Principal diagnosis: MAURI Interval history: Afebrile, white count remains persistently elevated at 14.9. Objective - Exam Narrative Exam: Physical exam deferred to reduce risk of transmission of COVID-19. Please refer to primary team's note. - Constitutional Vitals: Vital Signs Temp Pulse Resp BP Pulse Ox 98.7 F 108 H 16 105/54 99 01/29/22 08:33 01/29/22 09:23 01/29/22 08:33 01/29/22 09:23 01/29/22 08:33 Temperature -Last 24 Hours Temperature 98.7 F Temperature 98.1 F Temperature 98.6 F Temperature 97.7 F Temperature 98.9 F - Labs CBC & Chem 7: 01/28/22 05:56 01/28/22 09:32 Labs: Abnormal lab results 01/28/22 01/29/22 01/29/22 Range/Units 11:43 05:36 08:13 POC Glucose 134 H 137 H 168 H (70-105) mg/dL
[2022-01-29 12:57] VITALS: BP 91/45
--- NOTE | 2022-01-29 13:11 | Discharge Summary ---
Providers - Providers Date of Admission: 01/11/22 13:17 Date of discharge: 01/29/22 Attending physician: JACKELYN BYRD 01/11/22 05:40 Consult to Dietitian/Nutrition [CONS] Routine Physician Instructions: Reason For Exam: Reason for Consult: Diet education Consult to Physician [CONS] Routine Comment: puma/ damian Consulting Provider: ROSSY ROSS Physician Instructions: Reason For Exam: mauri 01/12/22 09:03 Consult to Dietitian/Nutrition [CONS] Routine Physician Instructions: Reason For Exam: Reason for Consult: Write/Manage Tube Feeding 01/12/22 09:04 Consult to Physician [CONS] Routine Comment: Consulting Provider: JOSÉ MIGUEL STEELE Physician Instructions: Reason For Exam: Sepsis 01/12/22 18:37 Consult to Physician [CONS] Routine Comment: Consulting Provider: ROSALIND STEPHENS Physician Instructions: Reason For Exam: Sacral decubitis Eval and treat Consult to Wound/ET Nurse [CONS] Routine Reason For Exam: wound eval / left mess.....damian 01/12/22 19:11 Consult to Wound/ET Nurse [CONS] Routine Reason For Exam: wound eval 01/13/22 11:44 Consult to Interventional Radiology [CONS] Routine Consulting Provider: OLGA MARTINEZ Reason For Exam: vasc cath placement Place consult to:: Dr. Martinez Notified:: - Comment:: Dr. Butt is aware of consult per note 01/13/22 @ 1538 01/14/22 16:16 Physical Therapy Evaluation and Treat [CONS] Routine Comment: PT eval and treat Reason For Exam: debility 01/17/22 16:03 Consult to Dietitian/Nutrition [CONS] Routine Physician Instructions: Assess nutrtn needs, initiate, modify, manage TF Reason For Exam: Reason for Consult: Write/Manage Tube Feeding Reason for Consult: Write/Manage Tube Feeding 01/17/22 16:16 Consult to Physician [CONS] Routine Comment: Consulting Provider: JOSÉ MIGUEL STEELE Physician Instructions: Reason For Exam: covid positive 01/22/22 09:44 Occupational Therapy Evaluate and Treat [CONS] Stat Comment: Eval and Treat Reason For Exam: Occupational Therapy 01/22/22 14:55 Consult to Wound/ET Nurse [CONS] Routine Reason For Exam: large sacral wound 01/29/22 11:59 PICC Line Insertion [Consult to PICC Line RN] [CONS] Stat Reason For Exam: Long-term antibiotics outpatient Type Line:: PICC 01/29/22 12:03 Consult to Case Management [CONS] Routine Services Needed at Discharge: Home Health Services Notified:: ANSON Additional Physician Instructions: MD [facility] ([facility]) M: [phone] O: [phone] F: [phone] Outpatient parenteral antibiotic therapy orders Diagnosis: Necrotic sacral wound Antibiotic administration: Cefepime 2 g every 12 hours and gentamicin 300 mg every 24 hours until 02/19/2022 Line: PICC Lab monitoring: CBC with differential, CMP, CPK, CRP once per week preferably on Wednesday or Wednesday For critical labs, call office: [phone] Magen Palacios Primary care physician: FOLD SKIVER Hospitalization Reason for admission: Acute toxic metabolic encephalopathy/sepsis Condition: Stable Pertinent studies: Chest x-ray Renal ultrasound CT abdomen and pelvis Vas-Cath placement CT head Lower extremity venous Doppler Surgical debridement sacral decubitus and left heel Hospital course: -66-year-old male patient was admitted through emergency room with acute toxic metabolic encephalopathy, sepsis initial work-up is consistent with multiple decubitus ulcers lactic acidosis, acute toxic metabolic encephalopathy, acute kidney injury, hypernatremia and multiple electrolyte imbalances, patient was admitted to ICU for close observation evaluated by surgeon patient underwent multiple treatments of surgical debridement Patient had multiple decubitus ulcers, wound care was following and patient was receiving appropriate antibiotics, patient was also evaluated by vascular, surgeon was considering below-knee amputation, however patient does not have any family members or contact information in the computer to discuss the treatment plan and obtain consent and could not reach any family members contact was not available. Patient had severe sepsis, Vanco resistant Enterococcus[VRE] urinary tract infection patient was on contact isolation and Proteus mirabilis wound infection and patient was started on daptomycin and cefepime, ID recommended total 6 weeks of antibiotics, patient received PICC line prior to discharge . patient is critically ill bedbound, surgery was planning right below-knee amputation, pending consent for the procedure. Family could not be reached. Advised to continue wound care and IV antibiotics, ID. May discharge to [facility] and follow outpatient wound care per schedule, follow surgeon per schedule pending consent for amputation with consent. Patient was also evaluated by heat treat supervisor during the hospital stay, initiated hemodialysis, however after few dialysis treatments, patient's creatinine and renal function improved significantly and dialysis was held and nephrology closely monitoring and follow upon discharge per schedule Case management tried to contact family and continue to make efforts to reach family/friend or some slot key person Case management assisted with DC planning and secured SNF placement, patient is being discharged and transferred to [facility] facility, Patient received PICC line, case management set up long-term antibiotics with custodial, follow-up appointments with surgeon, ID and nephrology and vascular was set up. follow-up with outpatient wound care was advised. Hemodynamically stable with guarded prognosis due to multiple medical problems including sepsis multiple decubitus ulcers and bedbound status. Advised to continue wound care, PEG care and tube feeding per protocols Patient is being discharged today. Discharge diagnosis: #Acute toxic metabolic Encephalopathy - Multifactorial: probably due to azotemia vs hypernatremia, vs infectious process - #Hypotension: On midodrine #Sepsis /VRE UTI #H/o Congestive Heart Failure(CHF) - Presented with tachycardia and hypotension - Patient remains hypotension this am, was febrile overnight and worsen leukocytosis this am - 12/14/21 Ech reviewed EF 45-50%, patient appear hypovolemic and dry - Continue IVF hydration per Nephro - Hold home antihypertensive agents - Midodrine added - cont. IVF, increased free water with TF for hypernatremia - Continue blood pressure monitor per protocol - Maintain MAP above 65 - Strict intake and output and daily weight #Acute Kidney Injury(MAURI) most likely ATN, placed on HD #Hypernatremia #Hyperkalemia, resolved # hypokalemia - probably due to hypotension/hypovelemia - Per record Scr. was 1.2 from last admit on 12/2021 - Scr. as high as 5.9, BUN 111 - s/p X1 dose of kayexalate, FWF for hypernatremia - Nephrology on consult, appreciated recommendation - no hydronephrosis on renal US - Strict intake and output - Avoid nephrotoxic medications; Renally dose medications - Vallecillo in place, initiated on HD 01/14 - replete electrolytes as needed #Severe Sepsis- multifactorial #Acute cystitis/UTI/VRE UTI # Positive Covid 19 #Infected Sacral Decubitis Ulcer/Proteus mirabilis #Leukocytosis #Lactic Acidosis - Presented with tachycardia and hypotension - Patient remains hypotension this am, was febrile overnight and worsen leukocytosis this am - Cultures pending, MRSA PCR positive - With multiple wounds, including malodourous, unstageable sacral decubitis. -Patient is on cefepime and daptomycin per ID - General Surgery consulted for possible debridement, wound care eval and treat - Wound care also consulted #Dysphagia s/p PEGtube Placement - Nutrition consulted - Initiated enteral nutrition #Thrombocytopenia - Presented with low plt - Plt count worsen this am - no s/s of any active bleeding - Will hold AC- heparin SubQ for now - H&H stable - HIT panel ordered Acute metabolic encephalopathy Hypotension on midodrine Sepsis/VRE UTI Congestive heart failure Acute kidney injury likely ATN Hypernatremia improved Hyperkalemia resolved Hypokalemia corrected Severe sepsis multifactorial Positive COVID-19 [01/15/2022] negative COVID-19 01/22/2022 and 01/29/2022 Infected sacral diabetes ulcer s/p surgical debridement Heel decubitus s/p surgical debridement Lactic acidosis resolved Dysphagia s/p PEG tube placement Thrombocytopenia Type 2 diabetes mellitus GI DVT prophylaxis #Type 2 Diabetes with Hyperglycemia - Continue BG and SSI Q6hrs - Lantus added qHs - While critically ill target blood glucose of 140-180 #GI/DVT Prophylaxis - PPI- Pepcid - SCDs to bilateral lower extremities while in bed Consults and recommendations noted and appreciated Closely monitor the patient and adjust management as needed Plan of care reviewed with patient and his nurse DC planning per case management/SNF placement COVID-19 PCR positive Rapid PCR test negative C. difficile negative Home O2 evaluation prior to discharge Continue current management s/p Disposition: [facility] FACILITY Final Discharge Diagnosis (Prints w/discharge instructions): Acute metabolic encephalopathy. Hypotension on midodrine. Sepsis/VRE UTI. Congestive heart failure. Acute kidney injury likely ATN. Hypernatremia improved. Hyperkalemia resolved. Hypokalemia corrected. Severe sepsis multifactorial. Positive COVID-19 [01/15/2022] negative COVID-19 01/22/2022 and 01/29/2022. Infected sacral diabetes ulcer. s/p surgical debridement. Heel decubitus s/p surgical debridement. Lactic acidosis resolved. Dysphagia s/p PEG tube placement. Thrombocytopenia. Type 2 diabetes mellitus. GI DVT prophylaxis Time spent for discharge: 45 minutes Core Measure Documentation - Palliative Care Palliative Care/ Comfort Measures: Not Applicable - Core Measures Any of the following diagnoses?: none Exam - Constitutional Vitals: Temp Pulse Resp BP Pulse Ox 98.0 F 96 H 20 91/45 97 01/29/22 12:15 01/29/22 12:15 01/29/22 12:15 01/29/22 12:15 01/29/22 12:15 Plan Activity: advance as tolerated, fall precautions, other (Bedbound) Diet: other (Tube feeding per protocol) Wound: per wound nurse instructions (Dakin wound dressing daily[per wound nurse and per surgeon) Additional Instructions: The patient has worsening symptoms contact MD and take him to the nearest emergency room as needed. Aspiration precautions. Feeding per protocol. Wound care per protocol. Offloading. Do not remove Vallecillo catheter as patient has sacral decubitus ulcer. Follow wound care clinic in 2 weeks Follow up with: FELIX PALACIOS MD [Staff Physician] - 03/02/22 PRIMARY CARE, [Primary Care Provider] - 7 Days ANDRA HARRISON MD [Staff Physician] - 7 Days ROSALIND STEPHENS MD [Staff Physician] - 10 Days ROSSY ROSS MD [Staff Physician] - 14 Days Prescriptions: oxyCODONE /ACETAMINOPHEN [Percocet 5/325 mg] 1 tab PO Q6H PRN #20 tablet PRN Reason: Pain, Moderate (4-6) Midodrine [Proamatine] 10 mg PO TID@0800,1200,1600 #90 tablet ALPRAZolam [Xanax TAB] 0.5 mg PO Q8H PRN #20 tablet PRN Reason: Anxiety
--- NOTE | 2022-01-29 14:35 | Consultation ---
History of Present Illness - Reason for Consult Consult date: 01/29/22 Leg wounds - History of Present Illness Patient with a history of hypertension, diabetes, CVA who was brought to the hospital from care facility for decreased mental status. At time of examination, the patient responds minimally to physical touch. He demonstrates significant anasarca and third spacing. Bilateral lower extremities with nonpalpable pulses. He has diffuse edema throughout his legs with hemosiderin staining and lipodermatosclerosis below his knees. Patient with sequela of longstanding venous hypertension. Bilateral nonhealing wounds as well. Past History Past Medical History: diabetes (PEG, Indwelling Cath), heart failure, hypertension, stroke Past Surgical History: Other (Gastro tube) Social history: no significant social history Family history: hypertension Medications and Allergies Allergies Allergy/AdvReac Type Severity Reaction Status Date / Time heparin Allergy Unknown Verified 01/19/22 10:43 Home Medications Medication Instructions Recorded Confirmed Last Taken Type cephALEXin [Keflex] 500 mg PO Q6HR 7 Days #28 capsule 12/09/21 01/14/22 Unknown Rx Aspirin [[place] Aspirin EC] 81 mg PO QDAY 12/14/21 01/14/22 Unknown History Atorvastatin [Lipitor] 80 mg PO QHS 12/14/21 01/14/22 Unknown History Dapagliflozin Propanediol [Farxiga] 10 mg PO QDAY 12/14/21 01/14/22 Unknown History Insulin Detemir [Levemir VIAL] 25 unit SQ QHS 12/14/21 01/14/22 Unknown History Insulin Lispro [Admelog] 100 unit SQ ACHS 12/14/21 01/14/22 Unknown History Tamsulosin [Flomax] 0.4 mg PO QDAY 12/14/21 01/14/22 Unknown History carvediloL [Coreg] 3.125 mg PO BID 12/14/21 01/14/22 Unknown History Clopidogrel [Plavix] 75 mg PO QDAY tablet 12/27/21 01/14/22 Unknown Rx Sertraline [Zoloft] 100 mg PO QDAY #30 12/27/21 01/14/22 Unknown Rx Simple Syrup 15 ml FEEDTUBE PRN PRN oral.liqd 12/27/21 01/14/22 Unknown Rx Simple Syrup 30 ml FEEDTUBE PRN PRN oral.liqd 12/27/21 01/14/22 Unknown Rx Sodium Bicarbonate 325 mg FEEDTUBE PRN PRN #30 tablet 12/27/21 01/14/22 Unknown Rx Torsemide [Demadex] 20 mg PO QDAY #30 12/27/21 01/14/22 Unknown Rx Active Meds: Active Medications Acetaminophen (Acetaminophen 325 Mg Tab) 650 mg PO Q4H PRN PRN Reason: Pain MILD(1-3)/Fever >100.5/ROGERS Last Admin: 01/25/22 22:09 Dose: 650 mg Albuterol (Albuterol 2.5 Mg/3 Ml Nebu) 2.5 mg IH Q3HRT PRN PRN Reason: Shortness Of Breath Alprazolam (Alprazolam 0.5 Mg Tab) 0.5 mg PO Q8H PRN PRN Reason: Anxiety Lipase/Protease/Amylase (Lipase 10,500/Protease 25,000/Amylase 43,750 (Units) Dr Mariee) 1 each FEEDTUBE PRN PRN PRN Reason: For Clogged Feeding Tube Ascorbic Acid (Ascorbic Acid 500 Mg Tab) 1,000 mg PO BID [facility] Last Admin: 01/29/22 09:25 Dose: 1,000 mg Aspirin (Aspirin 81 Mg Tab Chew) 81 mg FEEDTUBE QDAY [facility] Last Admin: 01/29/22 09:24 Dose: 81 mg Atorvastatin Calcium (Atorvastatin 40 Mg Tab) 80 mg PO QHS [facility] Last Admin: 01/28/22 22:37 Dose: 80 mg Cholecalciferol (Cholecalciferol (Vit D3) 5,000 Unit Tab) 5,000 unit PO DAILY [facility] Last Admin: 01/29/22 09:24 Dose: 5,000 unit Dextrose (Dextrose 50% In Water (25gm) 50 Ml Syringe) 50 ml IV Q30MIN PRN; Protocol PRN Reason: Hypoglycemia Famotidine (Famotidine 10 Mg Tab) 10 mg FEEDTUBE BID [facility] Last Admin: 01/29/22 09:24 Dose: 10 mg Haloperidol Lactate (Haloperidol Lactate 5 Mg/1 Ml Inj) 5 mg IM Q6H PRN PRN Reason: Agitation Last Admin: 01/28/22 12:50 Dose: 5 mg Hydralazine HCl (Hydralazine 20 Mg/1 Ml Inj) 10 mg IV Q6H PRN PRN Reason: Blood Pressure Cefepime HCl (Cefepime/Ns 2 Gm/100 Ml) 2 gm in 100 mls @ 200 mls/hr IV Q12H [facility]; Protocol Last Infusion: 01/29/22 13:04 Dose: Infused Sodium Chloride (Nacl 0.9% 1000 Ml) 1,000 mls @ 75 mls/hr IV DIRECT [facility] Last Admin: 01/29/22 09:29 Dose: 75 mls/hr Daptomycin 300 mg/ Sodium (Chloride) 100 mls @ 200 mls/hr IV Q24H [facility]LEXSANDR[facility]; Protocol Last Admin: 01/29/22 12:43 Dose: 200 mls/hr Insulin Glargine (Insulin Glargine 100 Units/Ml) 15 units SUB-Q HS [facility] Last Admin: 01/28/22 22:53 Dose: Not Given Insulin Human Lispro (Insulin Lispro 100 Unit/Ml) 0 unit SUB-Q Q6HR [facility]; Protocol Last Admin: 01/29/22 12:56 Dose: 5 unit Insulin Human Lispro (Insulin Lispro 100 Unit/Ml) 5 unit SUB-Q AC [facility] Last Admin: 01/29/22 12:44 Dose: 5 unit Midodrine (Midodrine 10 Mg Tab) 10 mg PO TID@0800,1200,1600 [facility] Last Admin: 01/29/22 12:43 Dose: 10 mg Morphine Sulfate (Morphine 2 Mg/1 Ml Inj) 2 mg IV Q6H PRN PRN Reason: Pain, Moderate (4-6) Last Admin: 01/28/22 08:18 Dose: 2 mg Ondansetron HCl (Ondansetron 4 Mg/2 Ml Inj) 4 mg IV Q8H PRN PRN Reason: Nausea And Vomiting Oxycodone/Acetaminophen (Oxycodone /Acetaminophen 5-325mg Tab) 1 tab PO Q6H PRN PRN Reason: Pain, Moderate (4-6) Last Admin: 01/29/22 07:25 Dose: 1 tab Prazosin HCl (Prazosin 5 Mg Cap) 5 mg PO Q12HR [facility] Last Admin: 01/29/22 09:23 Dose: 5 mg Simple Syrup (Simple Syrup 15 Ml) 15 ml FEEDTUBE PRN PRN PRN Reason: Hypoglycemia Simple Syrup (Simple Syrup 15 Ml) 30 ml FEEDTUBE PRN PRN PRN Reason: Hypoglycemia Sodium Bicarbonate (Sodium Bicarbonate 325 Mg Tab) 325 mg FEEDTUBE PRN PRN PRN Reason: For Clogged Feeding Tube Sodium Chloride (Sodium Chloride 0.9% 10 Ml Flush Syringe) 10 ml IV BID [facility] Last Admin: 01/29/22 09:24 Dose: 10 ml Sodium Chloride (Sodium Chloride 0.9% 10 Ml Flush Syringe) 10 ml IV PRN PRN PRN Reason: LINE FLUSH Sodium Hypochlorite (Sodium Hypochlorite, Dakin's 1/2 Strength (0.25%) 473 Ml Topical Soln) 1 applic TP BID [facility] Last Admin: 01/29/22 09:25 Dose: 1 applicatio Zinc Sulfate (Zinc Sulfate 220 Mg Cap) 220 mg PO BID [facility] Last Admin: 01/29/22 09:24 Dose: 220 mg Review of Systems ROS unobtainable: due to mental status Exam - Constitutional Vitals: Temp Pulse Resp BP Pulse Ox 98.0 F 96 H 20 91/45 97 01/29/22 12:15 01/29/22 12:15 01/29/22 12:15 01/29/22 12:15 01/29/22 12:15 General appearance: Present: other (I responsive to pain) - Respiratory Respiratory effort: normal - Extremities Extremities: abnormal (Per HPI) Results - Labs CBC & Chem 7: 01/28/22 05:56 01/28/22 09:32 Labs: Abnormal lab results 01/29/22 01/29/22 01/29/22 Range/Units 05:36 08:13 12:12 POC Glucose 137 H 168 H 190 H (70-105) mg/dL - Imaging and Cardiology Venous US: report reviewed, image reviewed Assessment and Plan Patient with sequela of venous hypertension, volume overload who underwent arterial duplex which demonstrates triphasic flow proximally and monophasic flow distally. Component of this is likely secondary to the patient's significant edema. We will obtain a CTA of the abdomen pelvis with runoff.
== END 2022-01-29 17:05 | DRG 853 ==
LOC: ED 02:08 → IMCU 13:17 → 4A 01-13 16:01 → 3A 01-15 19:58
PROVIDERS: ADMIT Hospitalist; ATTEND Internal Medicine
PROC: 5A1D70Z Performance of Urinary Filtration, Intermittent, Less than 6 Hours Per Day (ICD-10-PCS; 2022-01-13)
PROC: 02H633Z Insertion of Infusion Device into Right Atrium, Percutaneous Approach (ICD-10-PCS; 2022-01-13)
PROC: B5181ZA Fluoroscopy of Superior Vena Cava using Low Osmolar Contrast, Guidance (ICD-10-PCS; 2022-01-13)
PROC: B548ZZA Ultrasonography of Superior Vena Cava, Guidance (ICD-10-PCS; 2022-01-13)
PROC: 0QB10ZZ Excision of Sacrum, Open Approach (ICD-10-PCS; 2022-01-14)
PROC: 5A1D70Z Performance of Urinary Filtration, Intermittent, Less than 6 Hours Per Day (ICD-10-PCS; 2022-01-14)
PROC: 0QB10ZZ Excision of Sacrum, Open Approach (ICD-10-PCS; 2022-01-23)
PROC: 0JBR0ZZ Excision of Left Foot Subcutaneous Tissue and Fascia, Open Approach (ICD-10-PCS; 2022-01-23)
PROC: 0JBP0ZZ Excision of Left Lower Leg Subcutaneous Tissue and Fascia, Open Approach (ICD-10-PCS; 2022-01-23)
PROC: 02HV33Z Insertion of Infusion Device into Superior Vena Cava, Percutaneous Approach (ICD-10-PCS; principal; 2022-01-29)
PROC: B548ZZA Ultrasonography of Superior Vena Cava, Guidance (ICD-10-PCS; 2022-01-29)
DX: A41.9 Sepsis, unspecified organism (principal); U07.1 COVID-19; N17.0 Acute kidney failure with tubular necrosis; G92.8 Other toxic encephalopathy; E87.0 Hyperosmolality and hypernatremia; E46 Unspecified protein-calorie malnutrition; N30.00 Acute cystitis without hematuria; R65.20 Severe sepsis without septic shock; I50.9 Heart failure, unspecified; E87.5 Hyperkalemia; E11.65 Type 2 diabetes mellitus with hyperglycemia; I11.0 Hypertensive heart disease with heart failure; D69.6 Thrombocytopenia, unspecified; R13.10 Dysphagia, unspecified; E87.6 Hypokalemia; L89.150 Pressure ulcer of sacral region, unstageable; L89.620 Pressure ulcer of left heel, unstageable; Z79.4 Long term (current) use of insulin; Z74.01 Bed confinement status; Z86.73 Personal history of transient ischemic attack (TIA), and cerebral infarction without residual deficits; Z82.49 Family history of ischemic heart disease and other diseases of the circulatory system; Z88.8 Allergy status to other drugs, medicaments and biological substances; Z79.82 Long term (current) use of aspirin
CPT/HCPCS: 36415; 36556; 70450; 71045; 74176; 76770; 76937; 80048; 80074; 80076; 80202; 81001; 82140; 82550; 82565; 82570; 82575; 82728; 82947; 82962; 83520; 83615; 83735; 84100; 84145; 84165; 84300; 85007; 85025; 85027; 85379; 86021; 86022; 86038; 86140; 86160; 86850; 86900; 86901; 86920; 87040; 87076; 87086; 87116; 87186; 87493; 87641; 93925; 94644; 94760; G0378; J3490; Q9967; C1752; J0610; J0690; J0692; J0696; J0878; J1630; J1644; J1815; J2250; J2270; J2370; J2543; J2704; J3010; J3370; J3480; J7030; J7050; J7070; P9016; U0003

== ENCOUNTER 2022-02-06 21:55 | Emergency (ER) | payer MEDICARE ==
--- NOTE | 2022-02-06 22:07 | Emergency Department Report ---
ED General Adult HPI - General Stated complaint: CARDIAC ARREST PUI?: No Time Seen by Provider: 02/06/22 22:03 Source: EMS Mode of arrival: Stretcher Limitations: Other (unresponisve ) - History of Present Illness Initial comments: found unresponisve at [facility] at 9 30, last known 730 , intubated at the scene 3 pi given BS is 507 -: Sudden, hour(s) Associated Symptoms: denies: denies other symptoms Treatments Prior to Arrival: none - Related Data Home Medications Medication Instructions Recorded Confirmed Last Taken Aspirin [[place] Aspirin EC] 81 mg PO QDAY 12/14/21 01/14/22 Unknown Atorvastatin [Lipitor] 80 mg PO QHS 12/14/21 01/14/22 Unknown Tamsulosin [Flomax] 0.4 mg PO QDAY 12/14/21 01/14/22 Unknown Previous Rx's Medication Instructions Recorded Last Taken Type Clopidogrel [Plavix] 75 mg PO QDAY tablet 12/27/21 Unknown Rx Torsemide [Demadex] 20 mg PO QDAY #30 12/27/21 Unknown Rx ALPRAZolam [Xanax TAB] 0.5 mg PO Q8H PRN #20 tablet 01/29/22 Unknown Rx Ascorbic Acid [Vitamin C] 1,000 mg PO BID #30 tablet 01/29/22 Unknown Rx Cholecalciferol (Vitamin D3) 5,000 unit PO DAILY #14 tablet 01/29/22 Unknown Rx [Vitamin D3] DAPTOmycin 300 mg IV Q24H vial 01/29/22 Unknown Rx Famotidine [Pepcid] 10 mg FEEDTUBE BID tablet 01/29/22 Unknown Rx Insulin Glargine [Lantus VIAL] 15 units SUB-Q HS units 01/29/22 Unknown Rx Lipase/Protease/Amylase [Pancreaze 1 each FEEDTUBE PRN PRN capsule 01/29/[address] 10,500 Unit] Midodrine [Proamatine] 10 mg PO TID@0800,1200,1600 #90 01/29/22 Unknown Rx tablet Prazosin 5 mg PO Q12HR capsule 01/29/22 Unknown Rx Sodium Bicarbonate 325 mg FEEDTUBE PRN PRN tablet 01/29/22 Unknown Rx Sodium Hypochlorite [Dakin's Half 1 applic TP BID bottle 01/29/22 Unknown Rx Strength] Zinc Sulfate 220 mg PO BID capsule 01/29/22 Unknown Rx oxyCODONE /ACETAMINOPHEN [Percocet 1 tab PO Q6H PRN #20 tablet 01/29/22 Unknown Rx 5/325 mg] Allergies Allergy/AdvReac Type Severity Reaction Status Date / Time heparin Allergy Unknown Verified 01/19/22 10:43 ED Review of Systems ROS: Stated complaint: CARDIAC ARREST Other details as noted in HPI Comment: Unobtainable due to pts medical conditions ED Past Medical Hx - Past Medical History Hx Hypertension: Yes (CHF) Hx CVA: Yes (pt is chronically bed-bound) Hx Congestive Heart Failure: Yes Hx Diabetes: Yes Hx Deep Vein Thrombosis: (unknown) Hx Renal Disease: Yes (MAURI) Additional medical history: PEG, Indwelling Cath - Surgical History Hx Pacemaker: No Hx Internal Defibrillator: No Additional Surgical History: gastro tube - Social History Smoking Status: Unknown if ever smoked - Medications Home Medications: Home Medications Medication Instructions Recorded Confirmed Last Taken Type Aspirin [[place] Aspirin EC] 81 mg PO QDAY 12/14/21 01/14/22 Unknown History Atorvastatin [Lipitor] 80 mg PO QHS 12/14/21 01/14/22 Unknown History Tamsulosin [Flomax] 0.4 mg PO QDAY 12/14/21 01/14/22 Unknown History Clopidogrel [Plavix] 75 mg PO QDAY tablet 12/27/21 01/14/22 Unknown Rx Torsemide [Demadex] 20 mg PO QDAY #30 12/27/21 01/14/22 Unknown Rx ALPRAZolam [Xanax TAB] 0.5 mg PO Q8H PRN #20 tablet 01/29/22 Unknown Rx Ascorbic Acid [Vitamin C] 1,000 mg PO BID #30 tablet 01/29/22 Unknown Rx Cholecalciferol (Vitamin D3) 5,000 unit PO DAILY #14 tablet 01/29/22 Unknown Rx [Vitamin D3] DAPTOmycin 300 mg IV Q24H vial 01/29/22 Unknown Rx Famotidine [Pepcid] 10 mg FEEDTUBE BID tablet 01/29/22 Unknown Rx Insulin Glargine [Lantus VIAL] 15 units SUB-Q HS units 01/29/22 Unknown Rx Lipase/Protease/Amylase [Pancreaze 1 each FEEDTUBE PRN PRN capsule 01/29/[address] 10,500 Unit] Midodrine [Proamatine] 10 mg PO TID@0800,1200,1600 #90 01/29/22 Unknown Rx tablet Prazosin 5 mg PO Q12HR capsule 01/29/22 Unknown Rx Sodium Bicarbonate 325 mg FEEDTUBE PRN PRN tablet 01/29/22 Unknown Rx Sodium Hypochlorite [Dakin's Half 1 applic TP BID bottle 01/29/22 Unknown Rx Strength] Zinc Sulfate 220 mg PO BID capsule 01/29/22 Unknown Rx oxyCODONE /ACETAMINOPHEN [Percocet 1 tab PO Q6H PRN #20 tablet 01/29/22 Unknown Rx 5/325 mg] ED Physical Exam - General General appearance: other (unresponisve ) - Head Head exam: Present: atraumatic - Eye Eye exam: Present: other (non reactive ) - Neck Neck exam: Present: normal inspection - Respiratory Respiratory exam: Present: other (no sponatneous pulse ) - Cardiovascular Cardiovascular Exam: Present: other (no spontaneaous breath) - GI/Abdominal GI/Abdominal exam: Present: soft - Extremities Exam Extremities exam: Present: other (black discouloration ischemic changes ) - Skin Skin exam: Present: warm, dry ED Medical Decision Making - Medical Decision Making arrived intubated , 2 epi and bicarb , calcium is given no reponse, time of 2200 Critical care attestation.: If time is entered above; I have spent that time in minutes in the direct care of this critically ill patient, excluding procedure time. ED Disposition Clinical Impression: Cardiac arrest Disposition: 20 Is pt being admited?: No Does the pt Need Aspirin: No Condition: Undetermined
== END 2022-02-07 08:57 ==
LOC: ED 21:55
DX: I46.9 Cardiac arrest, cause unspecified (principal); I11.0 Hypertensive heart disease with heart failure; I50.9 Heart failure, unspecified; E11.9 Type 2 diabetes mellitus without complications; N28.9 Disorder of kidney and ureter, unspecified; Z86.73 Personal history of transient ischemic attack (TIA), and cerebral infarction without residual deficits; Z91.09 Other allergy status, other than to drugs and biological substances; Z79.899 Other long term (current) drug therapy
CPT/HCPCS: 99285